=== PATIENT | male | born 1940 | race Caucasian/White ===

== ENCOUNTER 2017-02-13 15:09 | Outpatient (CLI) | payer MEDICARE, OTHER ==
--- NOTE | 2017-02-14 13:40 | Ultrasound Report ---
BILATERAL LOWER EXTREMITY ARTERIAL DUPLEX: 02/13/2017 CLINICAL INDICATION: Peripheral arterial disease. TECHNIQUE: Real-time sonographic vascular imaging was performed by the litigation legal assistant through the lower extremities utilizing both color-flow and Doppler spectral analysis. Multiple senior sales representative static images were saved for review. RIGHT SIDE SITE PSV WAVEFORM STEN PATENT SEARCHER 91 triphasic PSFA 140 triphasic MSFA 112 triphasic DSFA 91 triphasic PFA 85 triphasic POP 90 triphasic RAYMUNDO 82 biphasic GEOGRAPHIC INFORMATION SYSTEM ANALYST 69 biphasic PER 55 biphasic DPA 95 triphasic LEFT SIDE SITE PSV WAVEFORM STEN PATENT SEARCHER 118 triphasic PSFA 103 triphasic MSFA 94 triphasic DSFA 120 triphasic PFA 76 biphasic POP 82 triphasic RAYMUNDO 61 triphasic GEOGRAPHIC INFORMATION SYSTEM ANALYST 78 triphasic PER 62 biphasic DPA 61 triphasic TECHNIQUE: Real-time scanning was performed. FINDINGS: Right leg: Waveforms are predominantly triphasic. There is no evidence of a focal velocity increase to suggest a hemodynamically significant stenosis. Left leg: Waveforms are predominantly triphasic. There is no evidence of a focal velocity increase to suggest a hemodynamically significant stenosis. IMPRESSION: NO EVIDENCE OF A FOCAL HEMODYNAMICALLY SIGNIFICANT STENOSIS IN EITHER LEG. [facility]
== END 2017-02-13 15:10 | disposition home or self-care (01) ==
LOC: DI 15:09
PROVIDERS: ATTEND Family Medicine
DX: I73.9 Peripheral vascular disease, unspecified (principal)
CPT/HCPCS: 93925

== ENCOUNTER 2017-03-19 11:36 | Outpatient (CLI) | payer MEDICARE, OTHER | END 2017-03-19 11:37 | disposition critical access hospital (66) | LOC: EMS 11:36 | PROVIDERS: ATTEND Surgery | DX: R53.1 Weakness (principal); W18.39XA Other fall on same level, initial encounter; Y93.E8 Activity, other personal hygiene; Y92.002 Bathroom of unspecified non-institutional (private) residence as the place of occurrence of the external cause | CPT/HCPCS: A0425; A0429 ==

== ENCOUNTER 2017-03-19 12:02 | Emergency (ER) | payer MEDICARE, OTHER ==
--- NOTE | 2017-03-19 12:11 | ED Physician Documentation ---
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 Today he was in the bathroom being helped and is what by his and he felt a pop in his right ankle and collapsed without other injury.) Review of Systems Ten Systems: 10 systems reviewed and negative Constitutional: denies: Fever, Chills Cardiac: denies: Chest pain / pressure, Palpitations Respiratory: denies: Dyspnea, Cough GI: denies: Abdominal Pain, Nausea, Vomiting PD PAST MEDICAL HISTORY - Past Medical History Cardiovascular: Hypertension, High cholesterol, Coronary artery disease, [place] Respiratory: None Neuro: None Endocrine/Autoimmune: None GI: None : None HEENT: None Musculoskeletal: Chronic back pain Derm: None - Past Surgical History Past Surgical History: Yes Cardiovascular: Coronary stent, Pacemaker - Present Medications Home Medications: Ambulatory Orders Medication Instructions Recorded Confirmed Aspirin [Aspir 81] 81 mg PO DAILY 08/03/15 03/19/17 Gabapentin [Neurontin] 600 mg PO TID 08/03/15 03/19/17 Lisinopril 10 mg PO DAILY 08/03/15 03/19/17 raNITIdine [Zantac] 150 mg PO BID 08/03/15 03/19/17 Carvedilol 25 mg PO BID 08/04/15 03/19/17 Multivit with Calcium,Iron,Min 1 mg PO DAILY 08/04/15 03/19/17 [Maximum Daily Multivitamin] Oxybutynin [Ditropan] 1 mg PO BID 08/04/15 03/19/17 Vit C/Vit E/Lutein/Min/[place]-3 1 mg PO DAILY 08/04/15 03/19/17 [Ocuvite Softgel] Atorvastatin [Lipitor] 40 mg PO DAILY 03/19/17 03/19/17 Cetirizine [ZyrTEC] 10 mg ORAL DAILY 03/19/17 03/19/17 Naproxen Sodium [Aleve] 220 mg ORAL PRN PRN 03/19/17 03/19/17 - Allergies Allergies/Adverse Reactions: Allergies Allergy/AdvReac Type Severity Reaction Status Date / Time No Known Drug Allergies Allergy Verified 08/04/15 21:01 - Social History Does the pt smoke?: No Smoking Status: Never smoker Does the pt drink ETOH?: No Does the pt have substance abuse?: No - Family History Family history: reports: Non contributory - Immunizations Immunizations are current?: No - POLST Patient has POLST: No PD ED PE NORMAL - Vitals Vital signs reviewed: Yes - General General: Alert and oriented X 3, No acute distress - HEENT HEENT: PERRL, EOMI - Neck Neck: Supple, no meningeal sign, No bony TTP - Cardiac Cardiac: RRR, No murmur - Respiratory Respiratory: No respiratory distress, Other (Mild wheezes) - Abdomen Abdomen: Non tender - Derm Derm: Normal color, Warm and dry - Extremities Extremities: No deformity, No tenderness to palpate, Normal ROM s pain, Other ( He is tender to the lateral malleolus of the right ankle, he has pedal edema, right greater than left which he says is chronic and unchanged.) - Neuro Neuro: Alert and oriented X 3, care coordinator 2-12 intact, No motor deficit, No sensory deficit, Normal speech - Psych Psych: Normal mood, Normal affect Results - Vitals Vitals: Vital Signs - 24 hr 03/19/17 03/19/17 03/19/17 12:02 13:03 14:18 Temperature 36.5 C Heart Rate 72 60 66 Respiratory 18 18 18 Rate Blood Pressure 152/134 H 119/61 119/96 H O2 Saturation 93 94 96 Oxygen O2 Source Room air - EKG (time done) 1221 Rate: Rate (enter#) (68) Rhythm: NSR [place]: Normal QRS: Low voltage Ischemia: Non specific changes (flat t waves throughout) Computer interpretation: Agree with computer - Labs Labs: Laboratory Tests 03/19/17 03/19/17 03/19/17 12:22 12:25 12:25 WBC 8.3 RBC 5.26 Hgb 15.3 Hct 46.1 MCV 87.6 MCH 29.1 MCHC 33.2 RDW 15.9 H Plt Count 149 MPV 8.3 Neut # 4.3 Lymph # 3.0 [place] # 0.5 Eos # 0.5 Baso # 0.0 Absolute Nucleated RBC 0.01 Nucleated RBCs 0.1 Sodium 140 Potassium 3.9 Chloride 104 Carbon Dioxide 26 Anion Gap 10.0 BUN 37 H Creatinine 1.1 Estimated GFR (MDRD) 65 L Glucose 106 H Calcium 8.9 Magnesium 2.0 Total Bilirubin 0.8 AST 35 ALT 43 Alkaline Phosphatase 80 Total Creatine Kinase 265 CK-MB (CK-2) 5.6 Troponin I < 0.04 Total Protein 6.6 L Albumin 3.8 Globulin 2.8 Albumin/Globulin Ratio 1.4 Lipase 23 - Rads (name of study) R ankle 3v Radiology: EMP read contemporaneously (Mildly comminuted spiral fracture of the distal tibia and an old healed fracture deformity of the right fibula.) PD MEDICAL DECISION MAKING - ED course ED course: 76-year-old gentleman who has poor functional status to start with presents after collapsing the bathroom with an isolated ankle injury showing an obliquely oriented fracture of the distal tibia. Case was discussed by phone with Dr. Mohamud Morrison who recommended Taz wrap under a cam boot which was applied by the tech. To follow-up in clinic. I will have the social sciences chair see him regarding placement as I am not sure he will be safe at home. Departure - Departure Disposition: 01 Home, Self Care Clinical Impression: Neurogenic bladder Fracture of distal end of tibia Qualifiers: Encounter type: initial encounter Fracture type: closed Fracture morphology: unspecified fracture morphology Laterality: right Qualified Code(s): S82.301A - Unspecified fracture of lower end of right tibia, initial encounter for closed fracture Condition: Stable Record reviewed to determine appropriate education?: Yes Follow-Up: [facility] [Provider Group] - Within 1 week Comments: Nonweightbearing to the right lower extremity, needs to follow-up with orthopedics in 1 week, call for an appointment. Keep the right leg elevated as much as possible.
[2017-03-19 12:39] LABS: BASOPHILS % (AUTO) 0.5 %; EOSINOPHILS # (AUTO) 0.5 10^3/uL (0.0-0.7); EOSINOPHILS % (AUTO) 5.5 %; HCT - HEMATOCRIT 46.1 % (42.0-52.0); HGB - HEMOGLOBIN 15.3 g/dL (14.0-18.0); LYMPHOCYTES % (AUTO) 35.9 %; MEAN CORPUSCULAR HEMOGLOBIN 29.1 pg (27.0-31.0); MEAN CORPUSCULAR HGB CONC 33.2 g/dL (32.0-36.0); MEAN CORPUSCULAR VOLUME 87.6 fL (80.0-94.0); MEAN PLATELET VOLUME 8.3 fL (7.4-11.4); MONOCYTES # (AUTO) 0.5 10^3/uL (0.0-1.0); MONOCYTES % (AUTO) 6.5 %; NEUTROPHILS # (AUTO) 4.3 10^3/uL (1.5-6.6); NEUTROPHILS % (AUTO) 51.6 %; NUCLEATED RED BLOOD CELLS AUTO 0.1 /100WBC; RED BLOOD COUNT 5.26 10^6/uL (4.70-6.10); RED CELL DISTRIBUTION WIDTH 15.9 % (12.0-15.0); UNCORRECTED WHITE BLOOD COUNT 8.3 x10^3/uL; WHITE BLOOD COUNT 8.3 x10^3/uL (4.8-10.8)
[2017-03-19 12:55] LABS: TROPONIN I < 0.04 ng/mL (<0.49)
[2017-03-19 12:57] LABS: CREATINE KINASE MB 5.6 ng/mL (0.6-6.3)
[2017-03-19 13:00] LABS: ALBUMIN/GLOBULIN RATIO 1.4 (1.0-2.2); BILIRUBIN,TOTAL 0.8 mg/dL (0.2-1.0); CALCIUM 8.9 mg/dL (8.5-10.3); CREATININE 1.1 mg/dL (0.6-1.2); POTASSIUM 3.9 mmol/L (3.5-5.0); TOTAL PROTEIN 6.6 g/dL (6.7-8.2)
--- NOTE | 2017-03-19 13:35 | XRAY Preliminary Report ---
Exam: XR Ankle 3 View RT IMPRESSION: 1. Mildly comminuted acute spiral fracture of the distal tibia. 2. Old healed fracture deformity of the distal right fibula. [facility] SITE ID: [id number]
--- NOTE | 2017-03-19 13:38 | XRAY Report ---
EXAM: RIGHT ANKLE RADIOGRAPHY EXAM DATE: 03/19/2017 12:45 PM. CLINICAL HISTORY: Ankle injury. COMPARISON: Radiographs 07/10/2007. TECHNIQUE: 3 views. FINDINGS: There is a mildly comminuted spiral type fracture involving the distal right tibia. There is deformit y within the distal fibula which may represent an old healed fracture. Small posterior and plantar ca lcaneal enthesophyte formation. Diffuse subcutaneous soft tissue edema. IMPRESSION: 1. Mildly comminuted acute spiral fracture of the distal tibia. 2. Old healed fracture deformity of the distal right fibula. [facility] Referring Provider Line: [phone] SITE ID: [id number]
[2017-03-19 15:52] VITALS: BP 142/87
== END 2017-03-19 16:46 | disposition home or self-care (01) ==
LOC: EDUNIT# → ED 12:02 → SUPCPDRO 12:02 → ED 16:46
DX: S82.301A Unspecified fracture of lower end of right tibia, initial encounter for closed fracture (principal); I45.81 Long QT syndrome; G62.9 Polyneuropathy, unspecified; I10 Essential (primary) hypertension; I25.10 Atherosclerotic heart disease of native coronary artery without angina pectoris; I25.2 Old myocardial infarction; Z95.0 Presence of cardiac pacemaker; Z95.5 Presence of coronary angioplasty implant and graft; Z79.82 Long term (current) use of aspirin; W18.30XA Fall on same level, unspecified, initial encounter; Y93.89 Activity, other specified
CPT/HCPCS: 36415; 80053; 82550; 82553; 83690; 83735; 84484; 85025; 93005; 99284

== ENCOUNTER 2017-04-28 13:25 | Outpatient (CLI) | payer MEDICARE, OTHER | END 2017-04-28 13:26 | disposition critical access hospital (66) | LOC: EMS 13:25 | PROVIDERS: ATTEND Surgery | DX: R06.02 Shortness of breath (principal) | CPT/HCPCS: A0425; A0427 ==

== ENCOUNTER 2017-04-28 13:33 | Inpatient (IN) | payer MEDICARE, OTHER ==
[2017-04-28] MEDS ORDERED: IBUPROFEN 800 MG TABLET PO STA (13:41)
[2017-04-28] MEDS ORDERED: IPRATROPIUM/ALBUTEROL 3 ML NEB INH STA (13:41)
[2017-04-28] MEDS ORDERED: SODIUM CHLORIDE 0.9% 1,000 ML IV ONE ×2 (13:41→16:37)
--- NOTE | 2017-04-28 13:43 | ED Physician Documentation ---
History of Present Illness - Stated complaint Stated Complaint: FEVER - Chief complaint Chief Complaint: Fever - History obtained from History obtained from: EMS - Additonal information Additional information: This is a 76-year-old gentleman that [place] with few days of fever up to 103 or so. He is also been noted to be hypoxic. He has an indwelling Hull. Patient is unable to give any history because of altered mental status. Review of Systems Unable to obtain: Confused PD PAST MEDICAL HISTORY - Past Medical History Cardiovascular: Hypertension, High cholesterol, Coronary artery disease, [place] Respiratory: None Neuro: None Endocrine/Autoimmune: None GI: None : None HEENT: None Musculoskeletal: Chronic back pain Derm: None - Past Surgical History Past Surgical History: Yes Cardiovascular: Coronary stent, Pacemaker - Present Medications Home Medications: Ambulatory Orders Medication Instructions Recorded Confirmed Aspirin [Aspir 81] 81 mg PO DAILY 08/03/15 04/28/17 Gabapentin [Neurontin] 600 mg PO TID 08/03/15 04/28/17 Lisinopril 10 mg PO DAILY 08/03/15 04/28/17 raNITIdine [Zantac] 150 mg PO BID 08/03/15 04/28/17 Carvedilol 25 mg PO BID 08/04/15 04/28/17 Multivit with Calcium,Iron,Min 1 tab PO DAILY 08/04/15 04/28/17 [Maximum Daily Multivitamin] Oxybutynin [Ditropan] 5 mg PO BID 08/04/15 04/28/17 Vit C/Vit E/Lutein/Min/[place]-3 1 cap PO DAILY 08/04/15 04/28/17 [Ocuvite Softgel] Atorvastatin [Lipitor] 40 mg PO DAILY 03/19/17 04/28/17 Cetirizine [ZyrTEC] 10 mg ORAL DAILY 03/19/17 04/28/17 Naproxen Sodium [Aleve] 220 mg ORAL PRN PRN 03/19/17 03/19/17 - Allergies Allergies/Adverse Reactions: Allergies Allergy/AdvReac Type Severity Reaction Status Date / Time No Known Drug Allergies Allergy Verified 08/04/15 21:01 - Social History Does the pt smoke?: No Smoking Status: Never smoker Does the pt drink ETOH?: No Does the pt have substance abuse?: No - Immunizations Immunizations are current?: No - POLST Patient has POLST: No PD ED PE NORMAL - Vitals Vital signs reviewed: Yes - General General: Other (He is lethargic, he is able to open his eyes and follow simple commands and say his name. When asking the date he says it is "the 18" but he is unable to state the month of the year. He does not know why he is here.) - HEENT HEENT: PERRL, EOMI, Moist mucous membranes - Neck Neck: Supple, no meningeal sign, No bony TTP - Cardiac Cardiac: RRR, No murmur - Respiratory Respiratory: Other (Tachypneic with audible wheezing and decreased at both bases ) - Abdomen Abdomen: Soft, Non tender, Other (Nontender umbilical hernia) - Male Male : Other (Hull in place with foul looking urine) - Extremities Extremities: No edema, No calf tenderness / cord - Neuro Neuro: No motor deficit, Other (Lethargic, altered) Results - Vitals Vitals: Vital Signs - 24 hr 04/28/17 04/28/17 04/28/17 13:37 13:53 15:25 Temperature 38.4 C H 101.3 C H Heart Rate 93 92 90 Respiratory 32 H 22 22 Rate Blood Pressure 164/121 H 126/112 H O2 Saturation 90 L 92 Oxygen O2 Source Nasal cannula - Labs Labs: Laboratory Tests 04/28/17 04/28/17 04/28/17 14:02 14:02 14:02 WBC 8.2 RBC 4.87 Hgb 14.1 Hct 42.5 MCV 87.3 MCH 28.9 MCHC 33.1 RDW 15.3 H Plt Count 192 MPV 8.5 Neut # 6.9 H Lymph # 0.8 L [place] # 0.1 Eos # 0.3 Baso # 0.0 Absolute Nucleated RBC 0.01 Nucleated RBCs 0.1 PT 13.1 H INR 1.2 Sodium 139 Potassium 4.7 Chloride 100 L Carbon Dioxide 27 Anion Gap 12.0 BUN 28 H Creatinine 1.1 Estimated GFR (MDRD) 65 L Glucose 112 H Lactic Acid Calcium 8.8 Total Bilirubin 1.1 H AST 39 ALT 40 Alkaline Phosphatase 157 H Troponin I Total Protein 6.9 Albumin 3.3 Globulin 3.6 Albumin/Globulin Ratio 0.9 L Lipase 19 L Urine Color Urine Clarity Urine pH Ur Specific [place] Urine Protein Urine Glucose (UA) Urine Ketones Urine Occult Blood Urine Nitrite Urine Bilirubin Urine Urobilinogen Ur Leukocyte Esterase Urine RBC Urine WBC Ur Squamous Epith Cells Amorphous Sediment Urine Bacteria Ur Microscopic Review Urine Culture Comments 04/28/17 04/28/17 04/28/17 14:02 14:02 15:34 WBC RBC Hgb Hct MCV MCH MCHC RDW Plt Count MPV Neut # Lymph # [place] # Eos # Baso # Absolute Nucleated RBC Nucleated RBCs PT INR Sodium Potassium Chloride Carbon Dioxide Anion Gap BUN Creatinine Estimated GFR (MDRD) Glucose Lactic Acid 1.5 Calcium Total Bilirubin AST ALT Alkaline Phosphatase Troponin I < 0.04 Total Protein Albumin Globulin Albumin/Globulin Ratio Lipase Urine Color YELLOW Urine Clarity CLOUDY Urine pH 6.5 Ur Specific [place] 1.015 Urine Protein 30 H Urine Glucose (UA) NEGATIVE Urine Ketones NEGATIVE Urine Occult Blood LARGE H Urine Nitrite POSITIVE H Urine Bilirubin NEGATIVE Urine Urobilinogen 1 (NORMAL) Ur Leukocyte Esterase LARGE H Urine RBC 6-10 H Urine WBC >25 H Ur Squamous Epith Cells FEW Squamous Amorphous Sediment Marked Urine Bacteria Many H Ur Microscopic Review INDICATED Urine Culture Comments INDICATED - Rads (name of study) 1v Chest Radiology: EMP read contemporaneously (NAD, no pna) Ct Chest Angio Radiology: EMP read contemporaneously (B PEs) PD MEDICAL DECISION MAKING - ED course ED course: 76-year-old gentleman presents encephalopathic with fever, foul urine, wheezing , and tachypnea. No obvious pneumonia on chest x-ray. Given recent ankle fracture will send for CT to rule in/out pneumonia and evaluate for pulmonary embolism. His white blood cell count is not high and his lactate is okay. CT does show pulmonary emboli, he was started on cefepime for the UTI and heparin for the PE. I called Dr. Cosby for admission at 3:58 PM. I tried both numbers on the chart to contact family, but there was no answer at either. Departure - Departure Disposition: [facility] DC/Xfer Clinical Impression: Pulmonary embolism Qualifiers: Pulmonary embolism type: other Chronicity: acute Acute cor pulmonale presence: without acute cor pulmonale Qualified Code(s): I26.99 - Other pulmonary embolism without acute cor pulmonale UTI (urinary tract infection) due to urinary indwelling catheter Qualifiers: Indwelling urinary catheter type: indwelling urethral catheter Encounter type: initial encounter Qualified Code(s): T83.511A - Infection and inflammatory reaction due to indwelling urethral catheter, initial encounter Condition: Serious Discharge Date/Time: 04/28/17 17:18
[2017-04-28] MEDS ORDERED: IPRATROPIUM/ALBUTEROL 3 ML NEB INH ONE (13:49)
[2017-04-28 14:11] LABS: BASOPHILS % (AUTO) 0.4 %; EOSINOPHILS # (AUTO) 0.3 10^3/uL (0.0-0.7); EOSINOPHILS % (AUTO) 3.6 %; HCT - HEMATOCRIT 42.5 % (42.0-52.0); HGB - HEMOGLOBIN 14.1 g/dL (14.0-18.0); LYMPHOCYTES # (AUTO) 0.8 10^3/uL (1.5-3.5); LYMPHOCYTES % (AUTO) 9.2 %; MEAN CORPUSCULAR HEMOGLOBIN 28.9 pg (27.0-31.0); MEAN CORPUSCULAR HGB CONC 33.1 g/dL (32.0-36.0); MEAN CORPUSCULAR VOLUME 87.3 fL (80.0-94.0); MEAN PLATELET VOLUME 8.5 fL (7.4-11.4); MONOCYTES # (AUTO) 0.1 10^3/uL (0.0-1.0); MONOCYTES % (AUTO) 1.8 %; NEUTROPHILS # (AUTO) 6.9 10^3/uL (1.5-6.6); NUCLEATED RED BLOOD CELLS AUTO 0.1 /100WBC; RED BLOOD COUNT 4.87 10^6/uL (4.70-6.10); RED CELL DISTRIBUTION WIDTH 15.3 % (12.0-15.0); UNCORRECTED WHITE BLOOD COUNT 8.2 x10^3/uL; WHITE BLOOD COUNT 8.2 x10^3/uL (4.8-10.8)
[2017-04-28 14:20] LABS: ALBUMIN/GLOBULIN RATIO 0.9 (1.0-2.2); BILIRUBIN,TOTAL 1.1 mg/dL (0.2-1.0); CALCIUM 8.8 mg/dL (8.5-10.3); CREATININE 1.1 mg/dL (0.6-1.2); POTASSIUM 4.7 mmol/L (3.5-5.0); TOTAL PROTEIN 6.9 g/dL (6.7-8.2)
[2017-04-28 14:24] LABS: INR 1.2 (0.8-1.2); PT - PROTHROMBIN TIME 13.1 secs (9.9-12.6)
--- NOTE | 2017-04-28 14:28 | XRAY Preliminary Report ---
Exam: XR Chest 1 View IMPRESSION: No acute disease. [facility] SITE ID: [id number]
--- NOTE | 2017-04-28 14:31 | XRAY Report ---
EXAM: CHEST RADIOGRAPHY EXAM DATE: 04/28/2017 02:13 PM. CLINICAL HISTORY: Cough fever. COMPARISON: 06/06/2011. TECHNIQUE: 1 view. FINDINGS: Lungs/Pleura: No definite localized infiltrate, consolidation, effusion, or pneumothorax. Mediastinum: Normal heart size, unchanged. Upper lobe vessels not distended. Other: Permanent pacemaker on the left with intact leads. Old lead on the right. Degenerative changes . IMPRESSION: No acute disease. [facility] Referring Provider Line: [phone] SITE ID: [id number]
[2017-04-28] MEDS ORDERED: IBUPROFEN 800 MG TABLET PO ONE (14:32)
[2017-04-28 15:42] LABS: BILIRUBIN,URINE NEGATIVE (NEGATIVE); PH,URINE 6.5 PH (5.0-7.5)
[2017-04-28 15:43] LABS: UA w/ MICROSCOPIC CHARGE YES
[2017-04-28 15:53] LABS: UR CULTURE IF IND INDICATED; WBC,URINE >25 /HPF (0-3)
[2017-04-28] MEDS ORDERED: HEPARIN 25,000 UNITS/500 ML 500 ML IV STA (15:56)
[2017-04-28] MEDS ORDERED: HEPARIN 5,000 UNIT/ML VIAL IVP ONE (15:56)
[2017-04-28] MEDS ORDERED: SODIUM CHLORIDE FLUSH 0.9% 10 ML SYRINGE IVP PRN (15:59)
[2017-04-28] MEDS ORDERED: oxyCODONE 5 MG TABLET PO PRN (16:04)
[2017-04-28] MEDS ORDERED: MORPHINE 2 MG/ML CARPUJECT IVP PRN (16:04)
[2017-04-28] MEDS ORDERED: PROCHLORPERAZINE 10 MG/2 ML VIAL IVP PRN (16:04)
[2017-04-28] MEDS ORDERED: ONDANSETRON ODT 4 MG TABLET TL PRN (16:04)
[2017-04-28] MEDS ORDERED: ONDANSETRON 4 MG/2 ML VIAL IVP PRN (16:04)
[2017-04-28] MEDS ORDERED: HEPARIN 5,000 UNIT/ML VIAL ONE (16:10)
[2017-04-28] MEDS ORDERED: HEPARIN 25,000 UNITS/500 ML 500 ML IV ONE (16:10)
--- NOTE | 2017-04-28 16:32 | CT Report ---
EXAM: CT ANGIOGRAM CHEST EXAM DATE: 04/28/2017 03:57 PM. CLINICAL HISTORY: Recent ankle frx, dyspnea. COMPARISON: None. TECHNIQUE: Routine helical imaging was performed through the chest in the pulmonary arterial phase. I V Contrast: 100 cc [id number]. Reconstructions: Sagittal, coronal, and 3-D MIP. In accordance with CT protocol optimization, one or more of the following dose reduction techniques w ere utilized for this exam: automated exposure control, adjustment of mA and/or KV based on patient s ize, or use of iterative reconstructive technique. FINDINGS: Pulmonary Arteries: Diagnostic quality: Adequate through the segmental arteries. Prominent pulmonary emboli, right more t fisher left, including lobar involvement and clot extending into the distal right main pulmonary artery. No saddle embolus. Dilation of main pulmonary artery measuring 3.8 cm indicating pulmonary artery hy pertension. RV/LV is within normal limits. There is no interventricular septal bowing. There is no reflux of cont rast material in the IVC. Lungs/Pleura: Respiratory motion artifact. Mild bibasilar atelectasis. No consolidation, effusion, or pneumothorax. Minimal pleural thickening on the right. Mediastinum: Normal heart size. No pericardial effusion. At least one vessel coronary artery calcific ation. No lymphadenopathy. Small hiatal hernia. Thoracic Aorta: Unremarkable. Upper Abdomen: Unremarkable. Other: None. IMPRESSION: 1. Positive for pulmonary embolism, right more than left, with a moderate to large total amount of cl ot. 2. Pulmonary artery hypertension. 3. Small hiatal hernia and other chronic or incidental findings. [facility] The above critical findings were discussed with LULU Leo by Dr. Néstor Rogers at 16:28 hrs on 04/28. Referring Provider Line: [phone] SITE ID: [id number]
[2017-04-28] MEDS: SODIUM CHLORIDE 0.9% 1,000 ML IV SCH (19:16)
[2017-04-28] MEDS: HEPARIN 25,000 UNITS/500 ML 500 ML IV SCH (20:00)
--- NOTE | 2017-04-28 20:55 | HISTORY & PHYSICAL EXAMINATION ---
DATE OF ADMISSION: 04/28/2017 PRIMARY CARE PROVIDER: Vanessa Krishnamurthy DO. ADMITTING PROVIDER: Angélica Cosby MD. CHIEF COMPLAINT: Fever, low oxygen and altered mental status, worsening over the last 2 days. HISTORY OF PRESENT ILLNESS: The patient is a morbidly obese 76-year-old white male who has been [facility] since approximately mid March of this year because of a right ankle fracture. 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 He lives at home with his and even though his is an [employer], he has become more and more difficult to care for because of his size. He already has an old right ankle fracture, and then he sprained his ankle p retty badly in August 2010. Because of his failed laminectomy syndrome, he has bilateral lower extr emity weakness. Legs will go out from underneath him. This gentleman still drives. He states that he will get in the car, use his foot to put the gas on, get it up to 30, 35 and set cruise control. He t hen takes his foot off the gas pedal and using the cruise control will up the switch or down the swit ch depending on if he needs to speed up or slow down. He then uses his very weak right leg to then pu t on the brakes. In any case, he was standing after a bout of rectal incontinence. His was helping him get cleane d up and as he was standing there next to the toilet and the wheelchair, his right leg collapsed unde rneath him and he heard a snap. He broke his ankle. He has been living at [facility] with self [facility] he cannot be at home with his . He has had followup films with Dr. Dwight Morrison and the fractur e is described as healing, but the patient has been nonweightbearing and states that he has been gett ing weaker and weaker at [facility]. He usually walks with a walker at home a few steps, or uses a wheel chair. Right now he doubts he could stand to use a wheelchair. He uses self-catheterization for urinary retention. He has a history of traumatic hematuria in 2010. He ended up having a cystoscopy with clots removed. He then went on to have a penile implant, but the penile implant moved and he developed scrotal fluid and he had to have all that removed in June 02. About 2 days ago, he started developing fevers. He does not really remember the confusion. He is act ually a decent historian. Dr. Gonzalez seems to be describing a confused gentleman in the emergency neil m that is much improved after receiving Levaquin and IV fluids. In any case, he was confused, hypoxic , febrile, tachycardic. Dr. Gonzalez was going to be suspecting pneumonia or urinary tract infection be cause his urine was sludge in the emergency room. While he does have a UTI, the CT pulmonary angiogra m shows the patient to have bilateral pulmonary emboli. He has now been started on a heparin drip. He received IV fluids, IV antibiotics, and mentally his sensorium is much improved upon transfer to med /surg floor. PAST MEDICAL HISTORY: 1. Coronary artery disease, myocardial infarction in August 2008. He had an anterior wall CT and cochran d 2 drug-eluting stent placements. These were done to the diagonal and circumflex. He has had an echo prior to that in 2005 that showed an intact left ventricular ejection fraction. Repeat echo after hi s CT in October 2009 shows an intact left ventricle with an ejection fraction of 60% but he has mode rate tricuspid regurgitation and developing pulmonary hypertension. 2. Hypertension. 3. Hyperlipidemia. 4. Morbid obesity all of his life. 5. Back pain from spinal stenosis. He had a lumbar laminectomy, complicated by postoperative infectio n with staph at [facility] in 2002. He was septic. He lost function in both legs, predominantly more on the right than the left. Gradually regained function to be able to use a walker and a wheelchair. Over after several years leg weakness got much worse. He had a right knee replacement in 2011 in an e ffort to improve his strength, but it did not work. He has [facility] and [facility] Then he finally had an L3-4 laminectomy and redo L1-L2 and L3-S1 with foraminotomies 05/[address] Salinas at [facility]. He spent some time at [facility] for reha bilitation. 6. Osteoarthritis with a right total knee replacement as noted above. Spent time at [facility] for rehabilitation. He should have a left knee replacement, but he just has not been able to. 7. Deaf. [facility]. 8. Gastroesophageal reflux disease. 9. Intermittent rectal bleeding. He has a history of tubular adenomas and had a followup colonoscopy 10/2011. That showed an inflamed cecum with diverticulosis. He has had bloody stool off and on. Last episode of bloody stool with diarrhea was 10/2012. 10. Tonsillectomy. 11. Vocal cord paralysis noted with the ENT visit in 2012. 12. Sick sinus syndrome with pacemaker placement. 13. Left lower lung consolidation. He presented to [facility] ER in 11/2014 with dizziness, jono ting spells and just generalized not feeling well with tingling. They sent him home with a diagnosis of vertigo, but did not address the left lower lung consolidation from what I can see from that repor t. 14. Cataract surgery 10/2013. 15. Chronic allergies and he has had otitis media. Followed by the same ENT who diagnosed with vocal cord paralysis in 2011. 16. Chronic left olecranon bursitis and he has seen Orthopedics in the past and had elbow injection. 17. Metabolic syndrome with oral glucose tolerance test negative for diabetes in June 2010. 18. Onychomycosis. 19. Carries a diagnosis of peripheral artery disease but no real documentation in the chart other loretta n as stated diagnosis. 20. History of right leg edema that is intermittent because of his paralysis. He has had venous Doppl ers negative. ALLERGIES: HE HAS NO KNOWN DRUG ALLERGIES. MEDICATIONS: 1. Naproxen 220 mg b.i.d. p.r.n.. 2. Aspirin 81 mg p.o. daily. 3. Carvedilol 25 mg p.o. b.i.d. 4. Ditropan 5 mg p.o. daily. 5. Lipitor 40 mg p.o. daily. 6. Lisinopril 10 mg p.o. daily. 7. Calcium with Iron tablet daily. 8. Gabapentin 600 mg p.o. t.i.d.. 9. Vitamin C daily. 10. Zantac 150 b.i.d.. 11. Zyrtec 10 mg daily. SOCIAL HISTORY: He is from [place]. 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 From there, joined the [employer] after being in the [employer] for 12 year s. 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 He is 40% service connected because of his work with the [employer], because of hea rt and deafness. He is from his first , to his second . He has 1 son from id [place]. He is supposed to be living in his own home with his . Lanny hamilton has gotten increasingly difficult and she is unable to take care of him. He does not seem to have any future plans with regards to how he is going to take care of himself if his can no longer ta ke care of him and he needs to be permanently placed. FAMILY HISTORY: Dad at age 50 of [address]. Mom at age 50 of leukemia, and she had no white hiwot ls. He has one son who is healthy. No siblings. REVIEW OF SYSTEMS: He is remarkably negative. In spite of this extensive past medical history as I go from top to bottom he says he has no problems. But in looking at his past medical record with Vanessa Krishnamurthy he has multiple problems. Overall, constitutionally he has been super obese for many, many ye ars and has not had any unexpected weight changes. ENT: He has chronic vocal cord paralysis and speaks with forced harsh voice. He denies any recent jovanna nges in vision. [facility]. Denies any dental problems. Denies any swallowing problems. PULMONARY: He is wheezing while I talk to him and I ask him how often he has been coughing or wheezin g and he denies that, but he does have a couple of episodes of bronchitis documented in Dr. Krishnamurthy's notes. He seems to deny the allergy problems and asthma problems that might be associated with aller gies. He is a nonsmoker. He has had one episode of hemoptysis in the past, but is not chronic. CARDIAC: He has had no residual angina or congestive heart failure from his heart attack. He has inte rmittent leg edema on the right more than the left that is attributed to the paralysis and leg weakne ss. No DVTs, and does have orthopnea. [place] to have probable obstructive sleep apnea with significant snoring that he has never had evaluated. GASTROINTESTINAL: Has reflux disease. Intermittent rectal bleeding as noted above. No change in that. GENITOURINARY: He has chronic urinary retention. Cystoscopy in the past that showed an elevated base of the bladder, but no benign prostatic hypertrophy. Penile implant has been removed. No hematuria re cently. JOINTS: Everything hurts from the waist down. Not only does his back and joints hurt, but everything ybarra. Legs particularly. He says it is a residual from his surgeries. Again, he surprises me by tell ing me that he still drives and the history of present illness is a description of how he drives. SKIN: Denies rashes, petechiae, bruising. PSYCHIATRIC: Denies depression. Anxiety. Remarkably he does not worry about the future he tells me. 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 He has had syncope resulting in sick sinus syndrome with pacer placement. Denie s seizures. 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 Rectal incontinence and urinary retention. PHYSICAL EXAMINATION: VITAL SIGNS: On examination in the emergency room, he was 38.4 with a blood pressure 164/121, respira tory effort 32, 90% on room air. With fluids, antibiotics, heparin he has been transferred to the [facility] or. His blood pressure got as low as 73 and right now he is systolic 102, pulse 87, respiration 18, 9 1% on 5 liters. During my examination of this patient he was alert, oriented, eating a full dinner. A ll 3 courses on his plate plus the cheese cake and the only thing he did not eat was the grapes. HEAD AND NECK show unshaven man with pupils that are reactive. Moist, pink oral mucosa. A harsh force d voice because of his vocal cord paralysis. He speaks in a low growl. NECK: Has shotty adenopathy and he is so big that it is hard to assess for JVD. Supple, with no goite r or bruits. LUNGS: Have coarse tubular breath sounds and he is wheezing. He is unaware of his wheezing. No crackl es. CARDIAC: Regular rate and rhythm. Distant cardiac tones. I cannot feel His PMI. No murmurs, rubs, or gallops. ABDOMEN: Hugely obese. When asked about of appetite he grabbed the pannus and shakes it and laughs an d says that appetite is not a problem for him. He has an easily reducible umbilical hernia. Nontender . Normal bowel sounds. Lifting upwards pannus he has residual Geetha intertrigo. Both scrotum were s lightly retracted, no penile irritation at this time. EXTREMITIES: Huge. Large legs that are splayed and externally rotated. The right ankle almost has a C harcot joint appearance. There is no warmth, no heat. Left leg has no edema at all in comparison to t he right leg. Mild diffuse swelling that is pitting from knee down. He cannot lift his legs off the b ed, they are too big. He said he has lost a lot of strength being bedbound and nonweightbearing. No c lubbing, no cyanosis. NEUROLOGICAL: He has a functional plegia from both legs, right worse than left. He can barely wiggle his toes. Use of arms is intact. He is able to cut up his food, feed himself without difficulty. Alth ough he has got the vocal cord paralysis, there is no choking, no problems swallowing. No facial asym metry. Alert and oriented to person, place and time. ASSESSMENT/PLAN: 1. Acute respiratory failure with hypoxia. A combination of PE and sepsis. I also think we need to th row obstructive sleep apnea on top of it. Would probably benefit from a blood gas to see how much hyp ercapnia he has. Improving on the floor with just the minimal treatment has already received but he i s a tenuous status at best and may need to be transferred to the ICU, depending on how he does in the next few hours. 2. Pulmonary emboli. Started on heparin drip. Transition to Coumadin. I have explained to him that he is going to be given anticoagulation for the next 3-4 months. I would be tempted to start him on Xar elto, but I think insurance is going to be difficult for him, and he is a [facility]. 3. Urinary tract infection in a patient who has neurogenic bladder. Dr. Gonzalez describes the urine is sludge. Culture pending. Started on Levaquin IV. We will need to watch the interaction between Levaq uin and Coumadin to make sure he does not hypocoagulable. 4. Right ankle fracture. Recheck film. Check with Dr. Morrison about nonweightbearing status. 5. Super obesity with physiologic consequences of immobility. This gentleman is at real risk of losin g ground. He was relatively independent although shockingly so with regards to driving skills, but he has lost a lot of grounds while being at [facility] over the last few weeks. Depending on the ankle fra cture status, I will ask Dr. Morrison to see if he can start weightbearing and be more aggressive with his physical therapy. DO NOT RESUSCITATE STATUS. He has a POLST form with Dr. Krishnamurthy that is DO NOT RESUSCITATE from 05/21 15. He states that is unchanged. Deep venous thrombosis prophylaxis moot in that he has had pulmonary embolus, most likely has DVTs an d is on anticoagulation. JOB #: [id number] EXT JOB #:[id number]
[2017-04-28] MEDS: SODIUM CHLORIDE FLUSH 0.9% 10 ML SYRINGE IVP SCH (21:38)
[2017-04-28] MEDS ORDERED: SODIUM CHLORIDE 0.9% 500 ML IV ONE (22:12)
[2017-04-29] MEDS: SODIUM CHLORIDE 0.9% 1,000 ML IV SCH ×3 (03:33→23:38)
[2017-04-29] MEDS: SODIUM CHLORIDE FLUSH 0.9% 10 ML SYRINGE IVP SCH ×3 (06:22→21:45)
[2017-04-29] MEDS: HEPARIN 25,000 UNITS/500 ML 500 ML IV SCH ×2 (06:44→18:02)
[2017-04-29 08:40] LABS: INR 1.3 (0.8-1.2); PT - PROTHROMBIN TIME 14.8 secs (9.9-12.6)
[2017-04-29] MEDS: POLYETHYLENE GLYCOL 3350 17 GM PACKET PO SCH (08:59)
[2017-04-29] MEDS ORDERED: ACETAMINOPHEN 325 MG TABLET PO PRN (16:42)
--- NOTE | 2017-04-29 16:48 | PROVIDER PROGRESS NOTE ---
Assessment/Plan - Problem List (1) Pulmonary embolism Qualifiers: Pulmonary embolism type: other Chronicity: acute Acute cor pulmonale presence: without acute cor pulmonale Qualified Code(s): I26.99 - Other pulmonary embolism without acute cor pulmonale Assessment/Plan: His O2 has improved from 4liters to room air. Will continue heparin bridge to coumadin (2) Sepsis Assessment/Plan: Blood cultures have strep positive sens pending. His urine is pending. He is on Levaquin. SBP has improved. Will continue to monitor and change antibiotic if needed. - Current Meds Current Meds: Current Medications Generic Name Dose Route Start Last Admin Trade Name Freq PRN Reason Stop Dose Admin Sodium Chloride 1,000 mls @ 100 mls/hr 04/28/17 17:00 04/29/17 03:33 Normal Saline 0.9% IV 100 mls/hr .Q10H BILLIE Administration Heparin Sodium/Dextrose 500 mls @ 40.823 mls/hr 04/28/17 17:00 04/29/17 06:44 IV 38.22 mls/hr .[id number] BILLIE Administration Protocol 15 UNIT/KG/HR Levofloxacin 150 mls @ 100 mls/hr 04/28/17 17:00 04/28/17 19:16 Levaquin 750 Mg/150 Ml IV 100 mls/hr Q24H BILLIE Administration Polyethylene Glycol 17 gm 04/29/17 09:00 04/29/17 08:59 Miralax PO Not Given DAILY BILLIE Sodium Chloride 10 ml 04/28/17 22:00 04/29/17 06:22 Normal Saline Flush 0.9% IVP Not Given Q8HR BILLIE - Lab Result Fish Bone Diagrams: 04/28/17 14:02 04/28/17 14:02 - Additional Planning My Orders: My Active Orders 04/29/17 16:42 Acetaminophen [Tylenol] 650 mg PO Q4HR PRN 04/29/17 17:00 Gabapentin [Neurontin] 600 mg PO TID 04/29/17 21:00 Atorvastatin [Lipitor] 40 mg PO QPM Oxybutynin [Ditropan] 5 mg PO BID raNITIdine [Zantac] 150 mg PO BID 04/30/17 05:00 CBC - COMP BLD CT W/AUTO DIFF [HEME] DAILYLAB COMPREHENSIVE METABOLIC PANEL [CHEM] DAILYLAB Guiaic [OCCULT BLOOD IN PAT. SINGLE] [RAPID] DAILYLAB 04/30/17 06:00 Anti Xa [FACTOR XA] [COAG] Routine 05/01/17 05:00 CBC - COMP BLD CT W/AUTO DIFF [HEME] DAILYLAB COMPREHENSIVE METABOLIC PANEL [CHEM] DAILYLAB 05/02/17 05:00 CBC - COMP BLD CT W/AUTO DIFF [HEME] DAILYLAB COMPREHENSIVE METABOLIC PANEL [CHEM] DAILYLAB Subjective - Subjective Patient Reports: Feeling Better, Resting Comfortably, Fatigue (no sleep last night) Objective Vital Signs: Vital Signs - 24 hr 04/28/17 04/28/17 04/28/17 17:26 21:28 22:07 Temperature 37 C 36.7 C Heart Rate [ 87 83 Brachial] Heart Rate [ Supine] Respiratory 18 28 H Rate Blood Pressure 102/40 L [Left Brachial artery] Blood Pressure 76/51 L 86/47 L [Left Radial artery] Blood Pressure [Supine] O2 Saturation 91 L 95 04/29/17 04/29/17 04/29/17 04:00 08:05 11:35 Temperature 36.9 C 36.6 C Heart Rate [ 85 68 Brachial] Heart Rate [ 67 Supine] Respiratory 20 18 Rate Blood Pressure [Left Brachial artery] Blood Pressure 96/53 L 97/50 L [Left Radial artery] Blood Pressure 146/96 H [Supine] O2 Saturation 95 96 04/29/17 15:35 Temperature 36.7 C Heart Rate [ 73 Brachial] Heart Rate [ Supine] Respiratory 20 Rate Blood Pressure [Left Brachial artery] Blood Pressure 135/67 H [Left Radial artery] Blood Pressure [Supine] O2 Saturation 93 Oxygen O2 Source Room air I&O (Last 24 Hrs): Intake and Output Totals x24h 04/27/17 04/28/17 04/29/17 23:59 23:59 23:59 Intake Total 1188 1050 Output Total 1375 3600 Balance -187 -2550 General: Alert, Oriented x3, Cooperative HEENT: PERRLA, EOMI Neck: No JVD, No thyromegaly Neuro: Alert, Oriented Times 3 Cardiovascular: Regular rate, No murmurs Respiratory: No respiratory distress, Breath sounds nml Abdomen: Normal bowel sounds, Soft, No tenderness - Results Results: Laboratory Results WBC 8.2 x10^3/uL (4.8-10.8) 04/28/17 14:02 RBC 4.87 10^6/uL (4.70-6.10) 04/28/17 14:02 Hgb 14.1 g/dL (14.0-18.0) 04/28/17 14:02 Hct 42.5 % (42.0-52.0) 04/28/17 14:02 MCV 87.3 fL (80.0-94.0) 04/28/17 14:02 MCH 28.9 pg (27.0-31.0) 04/28/17 14:02 MCHC 33.1 g/dL (32.0-36.0) 04/28/17 14:02 RDW 15.3 % (12.0-15.0) H 04/28/17 14:02 Plt Count 192 10^3/uL (130-450) 04/28/17 14:02 MPV 8.5 fL (7.4-11.4) 04/28/17 14:02 Neut # 6.9 10^3/uL (1.5-6.6) H 04/28/17 14:02 Lymph # 0.8 10^3/uL (1.5-3.5) L 04/28/17 14:02 Rankin # 0.1 10^3/uL (0.0-1.0) 04/28/17 14:02 Eos # 0.3 10^3/uL (0.0-0.7) 04/28/17 14:02 Baso # 0.0 10^3/uL (0.0-0.1) 04/28/17 14:02 Absolute Nucleated RBC 0.01 x10^3/uL 04/28/17 14:02 Nucleated RBCs 0.1 /100WBC 04/28/17 14:02 PT 14.8 secs (9.9-12.6) H 04/29/17 08:00 INR 1.3 (0.8-1.2) H 04/29/17 08:00 Anti-Xa Level 0.6 U/mL (-0.7) 04/29/17 08:00 Sodium 139 mmol/L (135-145) 04/28/17 14:02 Potassium 4.7 mmol/L (3.5-5.0) 04/28/17 14:02 Chloride 100 mmol/L (101-111) L 04/28/17 14:02 Carbon Dioxide 27 mmol/L (21-32) 04/28/17 14:02 Anion Gap 12.0 (6-13) 04/28/17 14:02 BUN 28 mg/dL (6-20) H 04/28/17 14:02 Creatinine 1.1 mg/dL (0.6-1.2) 04/28/17 14:02 Estimated GFR (MDRD) 65 (>89) L 04/28/17 14:02 Glucose 112 mg/dL (70-100) H 04/28/17 14:02 Lactic Acid 1.5 mmol/L (0.5-2.2) 04/28/17 14:02 Calcium 8.8 mg/dL (8.5-10.3) 04/28/17 14:02 Total Bilirubin 1.1 mg/dL (0.2-1.0) H 04/28/17 14:02 AST 39 IU/L (10-42) 04/28/17 14:02 ALT 40 IU/L (10-60) 04/28/17 14:02 Alkaline Phosphatase 157 IU/L (42-121) H 04/28/17 14:02 Troponin I < 0.04 ng/mL (<0.49) 04/28/17 14:02 Total Protein 6.9 g/dL (6.7-8.2) 04/28/17 14:02 Albumin 3.3 g/dL (3.2-5.5) 04/28/17 14:02 Globulin 3.6 g/dL (2.1-4.2) 04/28/17 14:02 Albumin/Globulin Ratio 0.9 (1.0-2.2) L 04/28/17 14:02 Lipase 19 U/L (22-51) L 04/28/17 14:02 Urine Color YELLOW 04/28/17 15:34 Urine Clarity CLOUDY (CLEAR) 04/28/17 15:34 Urine pH 6.5 PH (5.0-7.5) 04/28/17 15:34 Ur Specific Hood 1.015 (1.002-1.030) 04/28/17 15:34 Urine Protein 30 mg/dL (NEGATIVE) H 04/28/17 15:34 Urine Glucose (UA) NEGATIVE mg/dL (NEGATIVE) 04/28/17 15:34 Urine Ketones NEGATIVE mg/dL (NEGATIVE) 04/28/17 15:34 Urine Occult Blood LARGE (NEGATIVE) H 04/28/17 15:34 Urine Nitrite POSITIVE (NEGATIVE) H 04/28/17 15:34 Urine Bilirubin NEGATIVE (NEGATIVE) 04/28/17 15:34 Urine Urobilinogen 1 (NORMAL) E.U./dL (NORMAL) 04/28/17 15:34 Ur Leukocyte Esterase LARGE (NEGATIVE) H 04/28/17 15:34 Urine RBC 6-10 /HPF (0-5) H 04/28/17 15:34 Urine WBC >25 /HPF (0-3) H 04/28/17 15:34 Ur Squamous Epith Cells FEW Squamous (<= Few) 04/28/17 15:34 Amorphous Sediment Marked /LPF 04/28/17 15:34 Urine Bacteria Many /HPF (None Seen) H 04/28/17 15:34 Ur Microscopic Review INDICATED 04/28/17 15:34 Urine Culture Comments INDICATED 04/28/17 15:34
[2017-04-29] MEDS ORDERED: LORazepam 0.5 MG TABLET PO PRN (16:52)
[2017-04-29] MEDS: GABAPENTIN 300 MG CAPSULE PO SCH ×2 (18:04→21:45)
[2017-04-29] MEDS: ATORVASTATIN 40 MG TABLET PO SCH (20:29)
[2017-04-29] MEDS: OXYBUTYNIN 5MG TABLET PO SCH (20:29)
[2017-04-30] MEDS: HEPARIN 25,000 UNITS/500 ML 500 ML IV SCH ×2 (06:09→19:03)
[2017-04-30] MEDS: GABAPENTIN 300 MG CAPSULE PO SCH ×3 (06:11→20:25)
[2017-04-30] MEDS: SODIUM CHLORIDE FLUSH 0.9% 10 ML SYRINGE IVP SCH ×3 (06:12→20:26)
[2017-04-30 06:38] LABS: BASOPHILS # (AUTO) 0.1 10^3/uL (0.0-0.1); EOSINOPHILS # (AUTO) 0.5 10^3/uL (0.0-0.7); EOSINOPHILS % (AUTO) 5.4 %; HCT - HEMATOCRIT 36.6 % (42.0-52.0); LYMPHOCYTES # (AUTO) 2.9 10^3/uL (1.5-3.5); LYMPHOCYTES % (AUTO) 32.9 %; MEAN CORPUSCULAR HGB CONC 32.8 g/dL (32.0-36.0); MEAN CORPUSCULAR VOLUME 88.5 fL (80.0-94.0); MEAN PLATELET VOLUME 8.4 fL (7.4-11.4); MONOCYTES # (AUTO) 0.9 10^3/uL (0.0-1.0); MONOCYTES % (AUTO) 10.2 %; NEUTROPHILS # (AUTO) 4.5 10^3/uL (1.5-6.6); NEUTROPHILS % (AUTO) 50.5 %; RED BLOOD COUNT 4.14 10^6/uL (4.70-6.10); RED CELL DISTRIBUTION WIDTH 15.5 % (12.0-15.0); UNCORRECTED WHITE BLOOD COUNT 8.8 x10^3/uL; WHITE BLOOD COUNT 8.8 x10^3/uL (4.8-10.8)
[2017-04-30 06:47] LABS: ALBUMIN/GLOBULIN RATIO 0.8 (1.0-2.2); BILIRUBIN,TOTAL 0.5 mg/dL (0.2-1.0); CALCIUM 8.2 mg/dL (8.5-10.3); CREATININE 0.8 mg/dL (0.6-1.2); POTASSIUM 3.9 mmol/L (3.5-5.0); TOTAL PROTEIN 5.9 g/dL (6.7-8.2)
[2017-04-30] MEDS: SODIUM CHLORIDE 0.9% 1,000 ML IV SCH ×2 (09:57→21:45)
[2017-04-30] MEDS: OXYBUTYNIN 5MG TABLET PO SCH ×2 (09:57→20:25)
[2017-04-30] MEDS: POLYETHYLENE GLYCOL 3350 17 GM PACKET PO SCH (09:57)
[2017-04-30] MEDS ORDERED: MORPHINE 2 MG/ML SYRINGE IVP PRN (10:33)
--- NOTE | 2017-04-30 12:35 | PROVIDER PROGRESS NOTE ---
Assessment/Plan - Problem List (1) Pulmonary embolism Qualifiers: Pulmonary embolism type: other Chronicity: acute Acute cor pulmonale presence: without acute cor pulmonale Qualified Code(s): I26.99 - Other pulmonary embolism without acute cor pulmonale Assessment/Plan: He is on room air and doing well. He continues on Heparin drip. started Warfarin. (2) Sepsis Assessment/Plan: He is afebrile SBP OK. UTI not identified bacteria yet. - Current Meds Current Meds: Current Medications Generic Name Dose Route Start Last Admin Trade Name Freq PRN Reason Stop Dose Admin Atorvastatin Calcium 40 mg 04/29/17 21:00 04/29/17 20:29 Lipitor PO 40 mg QPM BILLIE Administration Gabapentin 600 mg 04/29/17 17:00 04/30/17 06:11 Neurontin PO 600 mg TID BILLIE Administration Sodium Chloride 1,000 mls @ 100 mls/hr 04/28/17 17:00 04/30/17 09:57 Normal Saline 0.9% IV 100 mls/hr .Q10H BILLIE Administration Heparin Sodium/Dextrose 500 mls @ 40.823 mls/hr 04/28/17 17:00 04/30/17 06:09 IV 38.22 mls/hr .[id number] BILLIE Administration Protocol 15 UNIT/KG/HR Levofloxacin 150 mls @ 100 mls/hr 04/28/17 17:00 04/29/17 18:04 Levaquin 750 Mg/150 Ml IV 100 mls/hr Q24H BILLIE Administration Oxybutynin Chloride 5 mg 04/29/17 21:00 04/30/17 09:57 Ditropan PO 5 mg BID BILLIE Administration Polyethylene Glycol 17 gm 04/29/17 09:00 04/30/17 09:57 Miralax PO Not Given DAILY BILLIE Ranitidine HCl 150 mg 04/29/17 21:00 04/30/17 09:57 Zantac PO 150 mg BID BILLIE Administration Sodium Chloride 10 ml 04/28/17 22:00 04/30/17 06:12 Normal Saline Flush 0.9% IVP Not Given Q8HR BILLIE - Lab Result Fish Bone Diagrams: 04/30/17 06:17 04/30/17 06:17 - Additional Planning My Orders: My Active Orders 04/29/17 16:42 Acetaminophen [Tylenol] 650 mg PO Q4HR PRN 04/29/17 16:52 LORazepam [Ativan] 0.5 mg PO QPM PRN 04/29/17 17:00 Gabapentin [Neurontin] 600 mg PO TID 04/29/17 21:00 Atorvastatin [Lipitor] 40 mg PO QPM Oxybutynin [Ditropan] 5 mg PO BID raNITIdine [Zantac] 150 mg PO BID 04/30/17 14:00 Warfarin [Coumadin] 5 mg PO QDWARFARIN 05/01/17 05:00 CBC - COMP BLD CT W/AUTO DIFF [HEME] DAILYLAB COMPREHENSIVE METABOLIC PANEL [CHEM] DAILYLAB 05/02/17 05:00 CBC - COMP BLD CT W/AUTO DIFF [HEME] DAILYLAB COMPREHENSIVE METABOLIC PANEL [CHEM] DAILYLAB Subjective - Subjective Patient Reports: Feeling Better, Resting Comfortably, No Complaints Nursing Reports: No Complaints Objective Vital Signs: Vital Signs - 24 hr 04/29/17 04/30/17 04/30/17 15:35 00:07 08:40 Temperature 36.7 C 37.3 C 36.5 C Heart Rate [ 73 66 69 Brachial] Respiratory 20 18 18 Rate Blood Pressure 141/80 H [Left Brachial artery] Blood Pressure 135/67 H 137/83 H [Left Radial artery] O2 Saturation 93 94 94 Oxygen O2 Source Room air I&O (Last 24 Hrs): Intake and Output Totals x24h 04/28/17 04/29/17 04/30/17 23:59 23:59 23:59 Intake Total 1188 4213 1585 Output Total 1375 4575 2425 Balance -187 362 -840 General: Alert, Oriented x3, Cooperative HEENT: PERRLA, EOMI Neck: No JVD, No thyromegaly Neuro: Alert, Oriented Times 3 Cardiovascular: Regular rate, No murmurs Respiratory: Chest non-tender, No respiratory distress, Breath sounds nml Abdomen: Normal bowel sounds, Soft, No tenderness Skin: No rashes, No significant lesion - Results Results: Laboratory Results WBC 8.8 x10^3/uL (4.8-10.8) 04/30/17 06:17 RBC 4.14 10^6/uL (4.70-6.10) L 04/30/17 06:17 Hgb 12.0 g/dL (14.0-18.0) L 04/30/17 06:17 Hct 36.6 % (42.0-52.0) L 04/30/17 06:17 MCV 88.5 fL (80.0-94.0) 04/30/17 06:17 MCH 29.0 pg (27.0-31.0) 04/30/17 06:17 MCHC 32.8 g/dL (32.0-36.0) 04/30/17 06:17 RDW 15.5 % (12.0-15.0) H 04/30/17 06:17 Plt Count 184 10^3/uL (130-450) 04/30/17 06:17 MPV 8.4 fL (7.4-11.4) 04/30/17 06:17 Neut # 4.5 10^3/uL (1.5-6.6) 04/30/17 06:17 Lymph # 2.9 10^3/uL (1.5-3.5) 04/30/17 06:17 [place] # 0.9 10^3/uL (0.0-1.0) 04/30/17 06:17 Eos # 0.5 10^3/uL (0.0-0.7) 04/30/17 06:17 Baso # 0.1 10^3/uL (0.0-0.1) 04/30/17 06:17 Absolute Nucleated RBC 0.00 x10^3/uL 04/30/17 06:17 Nucleated RBCs 0.0 /100WBC 04/30/17 06:17 PT 14.8 secs (9.9-12.6) H 04/29/17 08:00 INR 1.3 (0.8-1.2) H 04/29/17 08:00 Anti-Xa Level 0.5 U/mL (-0.7) 04/30/17 06:17 Sodium 140 mmol/L (135-145) 04/30/17 06:17 Potassium 3.9 mmol/L (3.5-5.0) 04/30/17 06:17 Chloride 111 mmol/L (101-111) 04/30/17 06:17 Carbon Dioxide 25 mmol/L (21-32) 04/30/17 06:17 Anion Gap 4.0 (6-13) L 04/30/17 06:17 BUN 13 mg/dL (6-20) 04/30/17 06:17 Creatinine 0.8 mg/dL (0.6-1.2) 04/30/17 06:17 Estimated GFR (MDRD) 94 (>89) 04/30/17 06:17 Glucose 109 mg/dL (70-100) H 04/30/17 06:17 Lactic Acid 1.5 mmol/L (0.5-2.2) 04/28/17 14:02 Calcium 8.2 mg/dL (8.5-10.3) L 04/30/17 06:17 Total Bilirubin 0.5 mg/dL (0.2-1.0) 04/30/17 06:17 AST 36 IU/L (10-42) 04/30/17 06:17 ALT 37 IU/L (10-60) 04/30/17 06:17 Alkaline Phosphatase 109 IU/L (42-121) 04/30/17 06:17 Troponin I < 0.04 ng/mL (<0.49) 04/28/17 14:02 Total Protein 5.9 g/dL (6.7-8.2) L 04/30/17 06:17 Albumin 2.6 g/dL (3.2-5.5) L 04/30/17 06:17 Globulin 3.3 g/dL (2.1-4.2) 04/30/17 06:17 Albumin/Globulin Ratio 0.8 (1.0-2.2) L 04/30/17 06:17 Lipase 19 U/L (22-51) L 04/28/17 14:02 Urine Color YELLOW 04/28/17 15:34 Urine Clarity CLOUDY (CLEAR) 04/28/17 15:34 Urine pH 6.5 PH (5.0-7.5) 04/28/17 15:34 Ur Specific [place] 1.015 (1.002-1.030) 04/28/17 15:34 Urine Protein 30 mg/dL (NEGATIVE) H 04/28/17 15:34 Urine Glucose (UA) NEGATIVE mg/dL (NEGATIVE) 04/28/17 15:34 Urine Ketones NEGATIVE mg/dL (NEGATIVE) 04/28/17 15:34 Urine Occult Blood LARGE (NEGATIVE) H 04/28/17 15:34 Urine Nitrite POSITIVE (NEGATIVE) H 04/28/17 15:34 Urine Bilirubin NEGATIVE (NEGATIVE) 04/28/17 15:34 Urine Urobilinogen 1 (NORMAL) E.U./dL (NORMAL) 04/28/17 15:34 Ur Leukocyte Esterase LARGE (NEGATIVE) H 04/28/17 15:34 Urine RBC 6-10 /HPF (0-5) H 04/28/17 15:34 Urine WBC >25 /HPF (0-3) H 04/28/17 15:34 Ur Squamous Epith Cells FEW Squamous (<= Few) 04/28/17 15:34 Amorphous Sediment Marked /LPF 04/28/17 15:34 Urine Bacteria Many /HPF (None Seen) H 04/28/17 15:34 Ur Microscopic Review INDICATED 04/28/17 15:34 Urine Culture Comments INDICATED 04/28/17 15:34
[2017-04-30] MEDS: WARFARIN 5 MG TABLET PO SCH (14:43)
[2017-04-30] MEDS: ATORVASTATIN 40 MG TABLET PO SCH (20:25)
[2017-05-01] MEDS: SODIUM CHLORIDE FLUSH 0.9% 10 ML SYRINGE IVP SCH ×2 (04:30→13:39)
[2017-05-01] MEDS: GABAPENTIN 300 MG CAPSULE PO SCH ×2 (06:09→13:37)
[2017-05-01 06:48] LABS: BASOPHILS # (AUTO) 0.1 10^3/uL (0.0-0.1); HGB - HEMOGLOBIN 12.7 g/dL (14.0-18.0); MONOCYTES # (AUTO) 0.8 10^3/uL (0.0-1.0); NUCLEATED RED BLOOD CELLS AUTO 0.1 /100WBC
[2017-05-01 06:57] LABS: ALBUMIN/GLOBULIN RATIO 0.7 (1.0-2.2); BILIRUBIN,TOTAL 0.4 mg/dL (0.2-1.0); CALCIUM 8.5 mg/dL (8.5-10.3); CREATININE 0.9 mg/dL (0.6-1.2); POTASSIUM 4.1 mmol/L (3.5-5.0); TOTAL PROTEIN 6.1 g/dL (6.7-8.2)
[2017-05-01 07:02] LABS: EOSINOPHILS # (AUTO) 0.5 10^3/uL (0.0-0.7); EOSINOPHILS % (AUTO) 4.8 %; LYMPHOCYTES % (AUTO) 31.9 %; MEAN CORPUSCULAR HGB CONC 32.6 g/dL (32.0-36.0); MEAN PLATELET VOLUME 8.5 fL (7.4-11.4); MONOCYTES % (AUTO) 8.8 %; NEUTROPHILS # (AUTO) 5.1 10^3/uL (1.5-6.6); NEUTROPHILS % (AUTO) 53.5 %; RED BLOOD COUNT 4.38 10^6/uL (4.70-6.10); UNCORRECTED WHITE BLOOD COUNT 9.5 x10^3/uL; WHITE BLOOD COUNT 9.5 x10^3/uL (4.8-10.8)
[2017-05-01] MEDS: SODIUM CHLORIDE 0.9% 1,000 ML IV SCH (07:46)
[2017-05-01] MEDS: OXYBUTYNIN 5MG TABLET PO SCH (08:00)
[2017-05-01] MEDS: POLYETHYLENE GLYCOL 3350 17 GM PACKET PO SCH (08:01)
[2017-05-01] MEDS ORDERED: ENOXAPARIN 150 MG/ML SYRINGE SUBQ SCH (09:00)
--- NOTE | 2017-05-01 13:09 | DISCHARGE SUMMARY ---
DATE OF ADMISSION: 04/28/2017 DATE OF DISCHARGE: 05/01/2017 PRIMARY CARE PHYSICIAN: Vanessa Krishnamurthy DO ADMISSION DIAGNOSES 1. Acute respiratory failure with hypoxia. 2. Pulmonary emboli. 3. Urinary tract infection. 4. Right ankle fracture. 5. Super obesity. DISCHARGE DIAGNOSES 1. Acute respiratory failure with hypoxia, improved. 2. Pulmonary emboli on heparin followed by the Lovenox and has bridge to warfarin with therapeutic INR in progress. 3. Urinary tract infection. Final sensitivities pending. 4. Pneumonia, presumptively community-acquired, seen on day 2 chest x-ray. 5. Super morbid obesity, lifelong. 6. Gastroesophageal reflux disease. 7. Sick sinus syndrome, status post pacemaker placement. 8. Spinal stenosis status post multiple surgeries with significant loss of function of both legs. SPECIAL PROCEDURES: The patient had a CTA of the chest. Impression: 1) Positive pulmonary embolism, right more than left, with moderate to large total amount of clot. 2) Pulmonary artery hypertension. 3) Small hiatal hernia and other chronic incidental findings. CXR shows no acute disease; however, the chest CT shows some bibasilar atelectasis and clinical findings consistent with pneumonia. HOSPITAL COURSE AND MANAGEMENT: The initial presentation, hospital emergency evaluation, and hospitalist plan is well-described in the history and physical. SUMMARY: Armani began developing fevers. He also had confusion and was found to have a picture of sepsis with hypoxia, fevers, tachycardia. He has also signs of urinary tract infection and a CT angiogram that showed bilateral pulmonary emboli, and was started on a heparin drip over the course of the next 2 days. His oxygen requirement decreased down to room air. The patient had blood cultures that were positive for a contaminate-type organism, Strep anginosus. The patient's urinary culture had a Gram-negative growth of greater than 100,000 and enterococcus species, both pending final ID. The patient did have positive Hemoccult cards 09/03. No judi blood. The patient was able to be placed in a chair using a lift, spent several hours up and felt better. He is nonweightbearing and wears a boot when he is up in a wheelchair or a regular chair. The patient had warfarin started with the transition from the heparin drip and then to Lovenox for ease of delivery. PHYSICAL EXAMINATION ON DISCHARGE VITAL SIGNS: 36.8, 57, 142/59, 16, 94% room air saturation. EYES: EOMs within normal limits. PERRL. Nonicteric. MOUTH AND THROAT: Dentures in place. No other pathology, e.g. thrush. NECK: No lymphadenopathy, no thyromegaly, no bruits. CHEST WALL: Nontender. Symmetric. HEART: Sinus rhythm. No murmur, rubs, clicks. LUNGS: Few crackles continued more on right than left. The patient's air movement is improved. ABDOMEN: Very thick abdominal wall, soft, nontender. RECTAL/GENITAL: Exams not done. EXTREMITIES: He has edema and scaling of his feet and onychomycosis also noted. LABORATORY DATA: He has a white count of 9.5, 12 and 39 hemoglobin and hematocrit, and platelet count of 206. Sodium 141, potassium is 4.1, chloride 108, CO2 is 26, BUN 13, creatinine 0.9, glucose is 106, and calcium is 8.5. Normal liver enzymes and albumin of 2.6. DISCHARGE INSTRUCTIONS: He is going to be placed at [facility] with PT, OT and medication administration, i.e. Lovenox, with monitoring of his INRs. MEDICATIONS 1. Lovenox 150 mg subcu b.i.d. 2. Warfarin 5 mg p.o. daily to adjust according to INR. 3. Coreg 25 mg p.o. b.i.d. 4. Lipitor 40 mg daily. 5. Aspirin 81 mg a day. 6. Zantac 150 mg b.i.d. 7. Ocuvite 5 mg b.i.d. 8. Ditropan 5 mg b.i.d. 9. Tylenol 650 q.4 hours p.r.n. pain 2-5. 10. Levaquin 500 mg for 3 more days. 11. Oxycodone5 mg p.o. q.4 hours, maximum of 4 per day, p.r.n. pain greater than 5. FOLLOWUP: The patient will be followed by Dr. San initially and then Dr. Krishnamurthy. Also is going to have a consultation with an appointment with Dr. Dwight Morrison for his fracture of his right ankle. The patient will need to have a repeat urine and a chest x-ray to verify clear infection. Time spent in discharge activity was 50 minutes, and there was collaboration with case management and nursing. The patient was examined on day of discharge as noted above. JOB #: [id number] EXT JOB #:[id number] NESSA
[2017-05-01 13:29] VITALS: BP 151/88
[2017-05-01] MEDS: WARFARIN 5 MG TABLET PO SCH (13:37)
== END 2017-05-01 14:00 | DRG 175 ==
LOC: EDUNIT# → ED 13:33 → MS2 15:59
PROVIDERS: ADMIT Specialist; ATTEND Internal Medicine
DX: I26.99 Other pulmonary embolism without acute cor pulmonale (principal); N39.0 Urinary tract infection, site not specified; J96.01 Acute respiratory failure with hypoxia; J18.9 Pneumonia, unspecified organism; E78.00 Pure hypercholesterolemia, unspecified; I25.10 Atherosclerotic heart disease of native coronary artery without angina pectoris; I25.2 Old myocardial infarction; Z95.5 Presence of coronary angioplasty implant and graft; Z68.42 Body mass index [BMI] 45.0-49.9, adult; G82.20 Paraplegia, unspecified; T83.511A Infection and inflammatory reaction due to indwelling urethral catheter, initial encounter; B95.2 Enterococcus as the cause of diseases classified elsewhere; E66.01 Morbid (severe) obesity due to excess calories; G47.33 Obstructive sleep apnea (adult) (pediatric); N31.9 Neuromuscular dysfunction of bladder, unspecified; S82.891D Other fracture of right lower leg, subsequent encounter for closed fracture with routine healing; Z66 Do not resuscitate; K21.9 Gastro-esophageal reflux disease without esophagitis; I49.5 Sick sinus syndrome; M48.00 Spinal stenosis, site unspecified; I27.2 Other secondary pulmonary hypertension; R15.9 Full incontinence of feces; K44.9 Diaphragmatic hernia without obstruction or gangrene; E78.5 Hyperlipidemia, unspecified; I10 Essential (primary) hypertension; M19.90 Unspecified osteoarthritis, unspecified site; H91.3 Deaf nonspeaking, not elsewhere classified; J38.00 Paralysis of vocal cords and larynx, unspecified; Z95.0 Presence of cardiac pacemaker; Z96.651 Presence of right artificial knee joint; Z79.82 Long term (current) use of aspirin; Z79.899 Other long term (current) drug therapy
CPT/HCPCS: 36415; 71010; 71275; 80053; 81001; 81003; 82270; 83605; 83690; 84484; 85025; 85520; 85610; 87040; 87070; 87077; 87081; 87086; 87205; 87491; 87591; 93005; 96361; 96365; 96375; 99283; 99284; 99285

== ENCOUNTER 2017-06-25 07:26 | Outpatient (CLI) | payer MEDICARE, OTHER | END 2017-06-25 07:27 | disposition critical access hospital (66) | LOC: EMS 07:26 | PROVIDERS: ATTEND Surgery | DX: R50.9 Fever, unspecified (principal) | CPT/HCPCS: A0425; A0429 ==

== ENCOUNTER 2017-07-02 08:00 | Outpatient (CLI) | payer MEDICARE, OTHER ==
[2017-07-03 07:23] LABS: CREATININE 0.9 mg/dL (0.6-1.2)
== END 2017-07-02 23:59 | disposition home or self-care (01) ==
LOC: LAB.R 08:00
DX: N18.9 Chronic kidney disease, unspecified (principal)
CPT/HCPCS: 82565; 84520

== ENCOUNTER 2017-07-02 11:34 | Outpatient (CLI) | payer MEDICARE, OTHER ==
[2017-07-02 09:46] LABS: POTASSIUM 3.9 mmol/L (3.5-5.0)
== END 2017-07-02 11:35 | disposition home or self-care (01) ==
LOC: LAB.R 11:34
DX: A41.9 Sepsis, unspecified organism (principal); I10 Essential (primary) hypertension
CPT/HCPCS: 80051

== ENCOUNTER 2017-07-15 16:59 | Outpatient (CLI) | payer MEDICARE, OTHER ==
[2017-07-15 18:07] LABS: CALCIUM 8.7 mg/dL (8.5-10.3); CREATININE 0.9 mg/dL (0.6-1.2); POTASSIUM 3.9 mmol/L (3.5-5.0)
== END 2017-07-15 17:00 ==
LOC: LAB.R 16:59
DX: I10 Essential (primary) hypertension (principal)
CPT/HCPCS: 80048

== ENCOUNTER 2017-08-08 22:35 | Outpatient (CLI) | payer MEDICARE, OTHER, MEDICAID | END 2017-08-08 22:36 | disposition EMS.NT | LOC: EMS 22:35 | PROVIDERS: ATTEND Surgery | DX: Z03.89 Encounter for observation for other suspected diseases and conditions ruled out (principal); Z74.2 Need for assistance at home and no other household member able to render care ==

== ENCOUNTER 2017-08-09 09:13 | Outpatient (CLI) | payer MEDICARE, OTHER, MEDICAID | END 2017-08-09 09:14 | disposition critical access hospital (66) | LOC: EMS 09:13 | PROVIDERS: ATTEND Surgery | DX: R53.1 Weakness (principal); W18.30XA Fall on same level, unspecified, initial encounter; Y92.009 Unspecified place in unspecified non-institutional (private) residence as the place of occurrence of the external cause | CPT/HCPCS: A0425; A0429 ==

== ENCOUNTER 2017-08-09 09:35 | Emergency (ER) | payer MEDICARE, OTHER, MEDICAID ==
--- NOTE | 2017-08-09 12:24 | ED Physician Documentation ---
History of Present Illness - Stated complaint Stated Complaint: GLF - Chief complaint Chief Complaint: Ext Problem - History obtained from History obtained from: Patient, EMS - History of Present Illness Timing: Yesterday Pain level max: 1 Pain level now: 1 Improved by: nothing Worsened by: nothing - Additonal information Additional information: Patient is a 76-year-old male with a history of a right tibia fracture and has been in [facility] for the past several months. He had a home set up visits that went well and so he was discharged yesterday. Since that time he has fallen 3 times at home. Patient has no injuries from the falls. Did not hit his head. No neck or back pain He is mostly nonambulatory at baseline because of spinal issues. He is able to transfer usually. Denies any fevers, chills. Denies any injury. States that he feels that he needs to go back to [facility] to become stronger to be able to transfer and be safe at home. Review of Systems Ten Systems: 10 systems reviewed and negative Constitutional: denies: Fever, Chills Ears: denies: Ear pain Nose: denies: Rhinorrhea / runny nose, Congestion Throat: denies: Sore throat Cardiac: denies: Chest pain / pressure Respiratory: denies: Cough GI: denies: Abdominal Pain, Nausea, Vomiting, Diarrhea Skin: denies: Rash Musculoskeletal: reports: Back pain (chronic, unchanged). denies: Neck pain Neurologic: denies: Headache PD PAST MEDICAL HISTORY - Past Medical History Past Medical History: Yes Cardiovascular: Hypertension, High cholesterol, Coronary artery disease, [place] Respiratory: None Neuro: None Endocrine/Autoimmune: None GI: GERD : Retention, Indwelling catheter HEENT: Dental implants Psych: None Musculoskeletal: Fatigue, Chronic back pain Derm: None - Past Surgical History Past Surgical History: Yes General: Colonoscopy Ortho: Knee replacement, Other Cardiovascular: Coronary stent, Pacemaker, Angioplasty HEENT: Cataracts - Present Medications Home Medications: Ambulatory Orders Medication Instructions Recorded Confirmed Aspirin [Aspir 81] 81 mg PO DAILY 08/03/15 08/09/17 Carvedilol 25 mg PO BID 08/04/15 08/09/17 Multivit with Calcium,Iron,Min 1 tab PO DAILY 08/04/15 08/09/17 [Maximum Daily Multivitamin] Acetaminophen [Tylenol] 650 mg PO Q4HR PRN #0 tablet 06/28/17 08/09/17 Gabapentin [Neurontin] 600 mg PO TID #30 06/28/17 08/09/17 Warfarin [Coumadin] 5 mg PO DAILY #30 06/28/17 08/09/17 raNITIdine [Zantac] 150 mg PO BID #30 06/28/17 08/09/17 - Allergies Allergies/Adverse Reactions: Allergies Allergy/AdvReac Type Severity Reaction Status Date / Time No Known Drug Allergies Allergy Verified 08/09/17 09:48 - Social History Does the pt smoke?: No Smoking Status: Never smoker Does the pt drink ETOH?: No Does the pt have substance abuse?: No - Immunizations Immunizations are current?: No - POLST Patient has POLST: No POLST Status: Full Code PD ED PE NORMAL - Vitals Vital signs reviewed: Yes - General General: Alert and oriented X 3, No acute distress, Well developed/nourished - HEENT HEENT: PERRL, Moist mucous membranes - Neck Neck: Supple, no meningeal sign - Cardiac Cardiac: RRR, Strong equal pulses - Respiratory Respiratory: No respiratory distress, Clear bilaterally - Abdomen Abdomen: Soft, Non tender, Non distended - Derm Derm: Warm and dry - Extremities Extremities: No calf tenderness / cord, Other (2+ B LE edema) - Neuro Neuro: Alert and oriented X 3 - Psych Psych: Normal mood, Normal affect Results - Vitals Vitals: Vital Signs - 24 hr 08/09/17 08/09/17 09:45 12:07 Temperature 36.6 C Heart Rate 62 66 Respiratory 16 20 Rate Blood Pressure 139/61 H 133/96 H O2 Saturation 96 97 Oxygen O2 Source Room air - Labs Labs: Laboratory Tests 08/09/17 08/09/17 08/09/17 12:59 12:59 12:59 WBC 10.0 RBC 5.23 Hgb 14.6 Hct 44.0 MCV 84.2 MCH 27.8 MCHC 33.0 RDW 16.9 H Plt Count 212 MPV 8.3 Neut # 6.4 Lymph # 2.7 [place] # 0.5 Eos # 0.4 Baso # 0.0 Absolute Nucleated RBC 0.00 Nucleated RBC % 0.0 PT 21.0 H INR 1.9 H Sodium 139 Potassium 4.5 Chloride 100 L Carbon Dioxide 27 Anion Gap 12.0 BUN 19 Creatinine 1.0 Estimated GFR (MDRD) 73 L Glucose 110 H Calcium 9.1 Total Bilirubin 1.1 H AST 27 ALT 19 Alkaline Phosphatase 106 Total Protein 6.8 Albumin 3.5 Globulin 3.3 Albumin/Globulin Ratio 1.1 Lipase 10 L PD MEDICAL DECISION MAKING - ED course Complexity details: reviewed old records, reviewed results, re-evaluated patient , considered differential, d/w patient, d/w consultant internship ED course: Patient is a 76-year-old male who was recently released from [facility] for rehabilitation after a fractured tibia. He has fallen 3 times in the last 12 hours and has not been home over 24 hours yet, patient would like to go back to [facility] for further rehab and I think this is reasonable. The asked about [facility] placement, but there are no beds available at the [facility] today. Recommend that she call the spinal clinic at the [facility] on Friday to inquire further about his history of back issues. There are no acute neurological issues today. His catheter was also replaced, there was some difficulty with this and he likely has prostatic enlargement. We will have him follow-up with his PCP for further care of this. Dr. Jose, on-call for Dr. Krishnamurthy wrote the orders for [facility] and the patient will be sent back there for further care. Patient and family counseled regarding signs and symptoms for which I believe and urgent re-evaluation would be necessary. Patient with good understanding of and agreement to plan and is comfortable going home at this time This document was made in part using voice recognition software. While efforts are made to proofread this document, sound alike and grammatical errors may occur. Departure - Departure Disposition: Home, Self Care Clinical Impression: Generalized weakness, Multiple falls, Urinary retention Condition: Good Instructions: ED Fall Dizziness Weakn Balance Follow-Up: Vanessa Krishnamurthy DO [Primary Care Provider] - Within 1 week Comments: You are going to go back to [facility] today for further rehab. you should call the [facility] spine clinic on friday to ask about an appointment for his back. You may need a new referral from his doctor.
[2017-08-09 13:13] LABS: BASOPHILS % (AUTO) 0.3 %; EOSINOPHILS # (AUTO) 0.4 10^3/uL (0.0-0.7); EOSINOPHILS % (AUTO) 3.8 %; HGB - HEMOGLOBIN 14.6 g/dL (14.0-18.0); LYMPHOCYTES # (AUTO) 2.7 10^3/uL (1.5-3.5); LYMPHOCYTES % (AUTO) 27.3 %; MEAN CORPUSCULAR HEMOGLOBIN 27.8 pg (27.0-31.0); MEAN CORPUSCULAR VOLUME 84.2 fL (80.0-94.0); MEAN PLATELET VOLUME 8.3 fL (7.4-11.4); MONOCYTES # (AUTO) 0.5 10^3/uL (0.0-1.0); NEUTROPHILS # (AUTO) 6.4 10^3/uL (1.5-6.6); NEUTROPHILS % (AUTO) 63.6 %; RED BLOOD COUNT 5.23 10^6/uL (4.70-6.10); RED CELL DISTRIBUTION WIDTH 16.9 % (12.0-15.0)
[2017-08-09 13:18] LABS: ALBUMIN/GLOBULIN RATIO 1.1 (1.0-2.2); BILIRUBIN,TOTAL 1.1 mg/dL (0.2-1.0); CALCIUM 9.1 mg/dL (8.5-10.3); POTASSIUM 4.5 mmol/L (3.5-5.0); TOTAL PROTEIN 6.8 g/dL (6.7-8.2)
[2017-08-09 15:47] LABS: INR 1.9 (0.8-1.2)
[2017-08-09 16:48] VITALS: BP 133/79
== END 2017-08-09 16:47 | disposition home or self-care (01) ==
LOC: EDUNIT# → ED 09:35
DX: R53.1 Weakness (principal); R33.9 Retention of urine, unspecified; Z91.81 History of falling; I10 Essential (primary) hypertension; E78.00 Pure hypercholesterolemia, unspecified; I25.10 Atherosclerotic heart disease of native coronary artery without angina pectoris; I25.2 Old myocardial infarction; Z95.0 Presence of cardiac pacemaker; K21.9 Gastro-esophageal reflux disease without esophagitis; Z79.82 Long term (current) use of aspirin; Z79.01 Long term (current) use of anticoagulants
CPT/HCPCS: 36415; 51703; 51798; 80053; 83690; 85025; 85610; 99283

== ENCOUNTER 2017-08-11 10:10 | Outpatient (CLI) | payer MEDICARE, OTHER, MEDICAID ==
[2017-08-11 10:54] LABS: BILIRUBIN,URINE NEGATIVE (NEGATIVE)
[2017-08-11 10:56] LABS: UA w/ MICROSCOPIC CHARGE YES
[2017-08-11 11:12] LABS: UR CULTURE IF IND INDICATED; WBC,URINE >25 /HPF (0-3)
== END 2017-08-11 10:11 | disposition home or self-care (01) ==
LOC: LAB.R 10:10
DX: N39.0 Urinary tract infection, site not specified (principal)
CPT/HCPCS: 81001; 81003; 87086

== ENCOUNTER 2017-10-06 12:00 | Outpatient (CLI) | payer MEDICARE, OTHER, MEDICAID | END 2017-10-06 12:01 | disposition home or self-care (01) | LOC: LAB.R 12:00 | DX: A04.72 Enterocolitis due to Clostridium difficile, not specified as recurrent (principal) | CPT/HCPCS: 87493 ==

== ENCOUNTER 2017-10-14 09:13 | Outpatient (CLI) | payer MEDICARE, OTHER, MEDICAID | END 2017-10-14 09:14 | disposition EMS.NT | LOC: EMS 09:13 | PROVIDERS: ATTEND Surgery | DX: Z03.89 Encounter for observation for other suspected diseases and conditions ruled out (principal); W01.0XXA Fall on same level from slipping, tripping and stumbling without subsequent striking against object, initial encounter; Y92.002 Bathroom of unspecified non-institutional (private) residence as the place of occurrence of the external cause ==

== ENCOUNTER 2017-12-02 17:32 | Outpatient (CLI) | payer MEDICARE, OTHER, MEDICAID ==
--- NOTE | 2017-12-02 18:42 | CONSULTATION NOTE ---
Palliative Care Consultation - Referral Referring Provider: Dr Krishnamurthy Time of Visit: 12/02/2017. 13;20 - 15:00. Referral setting: Home (Seen in home setting due to taxing and considerable effort required to leave the home due to high fall risk secondary to increased lower extremity weakness following fractured tibia.) Referral Reason: Lower extremity weakness s/p tibia fracture - Information Sources Records reviewed: Previous records reviewed History/Review of Systems obtained from: Patient, Family Exam limitations: No limitations - History of Present Illness Brief History of Present Illness: This is a 76-year old man with a history of morbid obesity, R ankle fracture in March 2017, chronic back issues with neuropathy, on gabapentin s/p remote laminectomy (at [facility]) 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 At baseline s he is non-ambulatory in a wheelchair most of the time but able to transfer. - He fractured the R tibia March 19, 2017 and was placed in [facility] for rehabilitation for 7 months, from 03/19/17 to 10/28/17 for rehabilitation. - During his months at [facility], he was admitted to hospital 04/28/17 for acute respiratory failure with hypoxia, PE, and UTI and again in 06/2017 for urosepsis. - In 08/2017, he was discharged home, but after falling 3 times within 12 hours , returned to [facility] for further rehabilitation. - He has had 12+ falls over the past year; doesn't describe them as "falls," but as his R leg "giving out." Prior to the fracture of the tibia, it was his R knee that "gave out." - He and his note he is improving his strength and stamina with PT. He's doing much better, feeling stronger. - But he still wants to stand up more. He uses his arms to support his body weight. - He wants to use [facility] for PT as he had previously done with out- patient PT. I explained he can't do both out-patient PT and Home Health PT. - He is currently housebound, only gets out for medical appointments. - Chronic pain in lower back, and burning neuropathic pain in lower extremities "all the time." Refused gabapentin adjustment, will follow up with PCP at 4/30 visit. - Chronic pain in shoulders is well managed with Tylenol 1,000mg at bedtime. - Lives in split level home. Has a stair chair that facilitates his mobility up and down the stairs. - Has had three pacemakers since 1988. The current one was placed in 2009. 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 - He is on Home Health Physical Therapy and Nursing, but may soon be discharged from Nursing. OT evaluation indicated no OT needs at this time. Medical/Surgical History - Past Medical History Cardiovascular: reports: Hypertension, High cholesterol, Coronary artery disease , DC Respiratory: reports: None Neuro: reports: None, Peripheral neuropathy (lower extremities) Endocrine/Autoimmune: reports: None. denies: Type 2 diabetes (Fasting blood glucose 110 on 08/09/2017.) GI: reports: GERD : reports: Retention, Indwelling catheter HEENT: reports: Chronic hearing loss, Dental implants Psych: reports: None Musculoskeletal: reports: Fatigue, Chronic back pain Derm: reports: None MRSA Hx?: No - Past Surgical History General: reports: Colonoscopy, Other (tonsilectomy in childhood) Ortho: reports: Knee replacement, Other (two back surgeries: laminectomy at [facility] in 2002 and herniated disc around the same time) Cardiovascular: reports: Coronary stent, Pacemaker (three pacemakers placed: first one 1988, 3rd one in 2009), Angioplasty HEENT: reports: Cataracts - Substance History Use: Uses substance without health or social issues: NONE Social History - Living Situation Living arrangement: At home Living Situation: With spouse/s.o. 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 Patient has one son living in [facility]. His has three adult children. Family History - Family History Family History: Mother: (Both parents at age 50, father from heardening of arteries. mother sickened on the farm and suddenly. Sister age 1.5 yrs.), Father: , CVA/TIA, Sister: Alive and Well (1 sister and 3 brothers are living. One brother also has a pacemaker), , Brother : Alive and Well Medications/Allergies - Medications Home Medications: Ambulatory Orders Medication Instructions Recorded Confirmed Aspirin [Aspir 81] 81 mg PO DAILY 08/03/15 12/02/17 Carvedilol 25 mg PO BID 08/04/15 12/02/17 Multivit with Calcium,Iron,Min 1 tab PO DAILY 08/04/15 12/02/17 [Maximum Daily Multivitamin] Gabapentin [Neurontin] 600 mg PO TID #30 06/28/17 12/02/17 raNITIdine [Zantac] 150 mg PO BID #30 06/28/17 12/02/17 Acetaminophen 1,000 mg PO PRN MDD 3000mg in 24 12/02/17 hours Atorvastatin Calcium 40 mg PO DAILY 12/02/17 12/02/17 C,E,Zinc,Copper 11/Drtsr6p/Lut 1 cap PO DAILY 12/02/17 12/02/17 [Ocuvite Adult 50 Plus Softgel] Multivitamin [Multiple Vitamins] 1 tab PO DAILY 12/02/17 12/02/17 - Allergies Allergies/Adverse Reactions: Allergies Allergy/AdvReac Type Severity Reaction Status Date / Time No Known Drug Allergies Allergy Verified 08/09/17 09:48 Review of Systems - Constitutional Constitutional: reports: Fatigue (Doesn't sleep enough at night), Weight loss ( Patient reports 293 lbs on 11/25/17. He feels as though he has lost some weight.) . denies: Fever, Chills, Poor appetite - Eyes Eyes: reports: Corrective lenses - Ears, Nose & Throat Ears, Nose & Throat: reports: Hearing loss, Hearing aids (doesn't wear them), Tinnitus, Other (sinus problems) - Cardiovascular Cardiovascular: reports: Edema (wears compression stockings). denies: Palpitations, Chest pain - Respiratory Respiratory: denies: Cough, Wheezing, Hemoptysis, SOB at rest, SOB with exertion - Gastrointestinal Gastrointestinal: denies: Abdominal pain, Constipation, Diarrhea, Pollo blood emesis, Poor appetite - Genitourinary Genitourinary: reports: Other (Self catheterizes - places Hull indwelling catheter every night.). denies: Dysuria, Frequency, Hematuria - Musculoskeletal Musculoskeletal: reports: Back pain, Stiffness, Muscle weakness, Joint pain ( fingers and knee), Assistive devices (wheelchair,), Transfer issues - Integumentary Integumentary: denies: Rash, Pruritis - Neurological Neurological: reports: Numbness (and tingling). denies: Focal weakness, Headache, Seizures - Endocrine Endocrine: denies: Diabetes type 2 (Fasting blood glucose 110) - Hematologic/Lymphatic Hematologic/Lymphatic: reports: Bruising, Other (slow to heal. On Apixaban and aspirin) Physical Exam - Vital Signs Temperature: 96.4 F Pulse Rate: 57 O2 Saturation: 99 Blood Pressure: 140/82 - Physical Exam General Appearance: positive: No acute distress, Alert Eyes Bilateral: positive: EOMI, No lid inflammation, Conjunctivae nml, No scleral icterus ENT: positive: No signs of dehydration Neck: positive: No JVD, Trachea midline Cardiovascular: positive: Regular rate & rhythm Respiratory: positive: Breath sounds nml, Diminished throughout (likely from body habitus) Skin: positive: No symptoms Extremities: positive: Pedal edema (1+ wearing compression hose) Neurologic/Psychiatric: positive: Oriented x3, Mood/affect nml Palliative Care Pain: Pain improved (shoulder pain improved with Tylenol and sessions with chiropractor. He reports this doesn't help the back pain) Tiredness/Fatigue: Mild (1-3) Drowsiness/Sedation: None Anorexia: None Sleep: Other (Takes hours to fall asleep at night.) Constipation: No Feelings of wellbeing/Perceived Quality of Life: Fair (He feels upset at not being able to do things he could previously do, like work on his car) Performance Status: Performs own ADLs. Non-ambulatory but starting to walk specified distance during PT. - Palliative Care Discussion: His goal is to walk with his walker. He doesn't expect to be able to walk independently due to the long-term effects of the staphylococcus infection. He wants to use his motorized scooter again, to regain some of his independence and so his doesn't have to wheel him in the wheelchair. His current POLST is CPR but no intubation. I provided education that these two options don't work together. He expresses worry about becoming "a vegetable" and being a burden on his . He states he does not want prolongation of life , and definitely doesn't want intubation, but isn't ready to make a choice for DNR. He asks her advice, but she says it is his choice. He will think about it. He doesn't think of his falls as "falls" but as his legs giving out. He and his both note he's gained strength and is doing better with PT. He is homebound but they hope to take a weekend trip the first week in December Impression and Recommendations - Palliative Care Impression: This is a 76-year old man with a history of morbid obesity, R ankle fracture in March 2017, chronic back issues with neuropathy, on gabapentin s/p remote laminectomy complicated by staphylococcal infection of the spine, loss of function of bilateral legs, urinary retention, recurrent UTIs, pulmonary embolism, sick sinus syndrome s/p pacemaker, h/o DC, GERD, pneumonia. At baseline s he is non-ambulatory in a wheelchair most of the time, able to transfer but poorly. After fracturing his R tibia he was in [facility] for 7 months. He continues to fall frequently and is still weak, but has made progress in strength and stamina with Home Health PT. Home Health nursing is likely discharging him soon. He would benefit from ongoing palliative care oversight and monitoring. Recommendations/Counseling Done: Urinary retention: He self-catheterizes during the day and uses a Hull indwelling catheter 12 hours at night. Cleans and reuses supplies to save on cost. I provided education regarding infection risks, but he says he's done this "for years," with "only two" bladder infections. Managed by urologist Mahi Nguyen in [facility], last appointment was 11/20, follow up shelley't is Pulmonary embolism: Coumadin was DC'd, he's currently on Eliquis 5mg BID and aspirin 81mg daily. Will remain on anticoagulation for life. Managed by PCP Dr Krishnamurthy, next follow up is 12/29. Neuropathy of LEs: At baseline, constant pain. Currently gabapentin 600mg TID, wants to follow up with PCP at 12/29 visit. Spinal stenosis: Chronic pain. Continue PT and OT. Next appointment with Dr Kayla Ford at the [facility] on 12/05. Chronic shoulder pain: Managed with Tylenol 1000mg at bedtime, and 1000mg during the day prn. Pain improved since getting chiropractic treatment Insomnia: Difficulty falling asleep. Provided education on sleep hygiene techniques.Weighed benefits and burdens of pharmaceuticals, he is not interested at present. Advanced care planning: Current POLST signed 03/2017 is CPR and limited interventions (no intubation), but he does not have the original copy. His made a photocopy of my photocopy. I explained these CPR and limited interventions/no intubation don't work together, we discussed revising his POLST. He does not want prolongation of life and definitely doesn't want intubation, but cannot decide on DNR vs CPR. He wants to think about it. Follow up visit scheduled for December 8, 11:00. Time Spent: 100 minutes were spent with more than 50% of the time spent on counseling, education, and coordination of care.
== END 2017-12-02 17:33 | disposition home or self-care (01) ==
LOC: PC 17:32
PROVIDERS: ATTEND Nurse Practitioner
DX: Z51.5 Encounter for palliative care (principal); R33.9 Retention of urine, unspecified; G62.9 Polyneuropathy, unspecified; M48.00 Spinal stenosis, site unspecified; M25.519 Pain in unspecified shoulder; G47.00 Insomnia, unspecified; M79.605 Pain in left leg; M79.604 Pain in right leg; R53.1 Weakness; M54.5 Low back pain; E66.01 Morbid (severe) obesity due to excess calories; I11.9 Hypertensive heart disease without heart failure; I25.10 Atherosclerotic heart disease of native coronary artery without angina pectoris; R60.9 Edema, unspecified; Z86.711 Personal history of pulmonary embolism; Z91.81 History of falling; Z79.82 Long term (current) use of aspirin; Z79.01 Long term (current) use of anticoagulants; Z95.0 Presence of cardiac pacemaker; Z95.5 Presence of coronary angioplasty implant and graft
CPT/HCPCS: 99345

== ENCOUNTER 2018-01-06 11:15 | Outpatient (CLI) | payer MEDICARE, OTHER ==
--- NOTE | 2018-01-06 16:47 | CONSULTATION NOTE ---
Palliative Care Follow Up - Referral Referring Provider: Dr Krishnamurthy Time of Visit: 01/06/2018. 11:15 - 11:55 Referral setting: Home (Seen in home setting due to taxing and considerable effort required to leave the home due to lower extremity weakned s/p R tibia fracture.) Referral Reason: Lower extremity weakness - Information Sources Records reviewed: Previous records reviewed History/Review of Systems obtained from: Patient, Family Exam limitations: No limitations - History of Present Illness Update Brief HPI Update: -76-year-old man with right ankle fracture in March 2017 s/p fall. -Medical history: Morbid obesity, chronic back issues with neuropathy, on gabapentin S/P remote laminectomy (at [facility]) complicated by staphylococcal infection of the spine and loss of function to bilateral legs, urinary retention , recurrent UTIs, DVT/pulmonary embolism, sick sinus syndrome S/P pacemaker, history of OR, GERD, pneumonia. -He has had 12+ falls over the past year. -He fractured the right tibia March 19, 2017 and was in [facility] for 7 months for rehabilitation. -During that time he was admitted to hospital 04/28/17 for acute respiratory failure with hypoxia, PE, and UTI. -Hospitalized again in June 2017 for urosepsis. -In August 2017 he was discharged from [facility] to home but after falling 3 times within 12 hours he [facility] further [facility]. -Discharged 10/28/17 from [facility]. -Was on HomeHealth PT, OT, and Nursing. JACK DC'd from Home Health 12/15/17, and from PT 12/31/17. -He is now enrolled in outpatient PT at [facility] and just returned from a session. -He and his both report he has had significant improvement in the past month. -He is able to self transfer, he takes care of his own ADLs, showers himself. -His chronic pain is at baseline, and gabapentin helps the neuropathy. He takes 1000mg of Tylenol nightly for adequate pain control -[facility] for R-side "pinched nerve" to consider electro therapy. -They just returned from a trip to [place] for the 's high school reunion. -His is planning a 1-2 week trip January 30 and will hire temporary caregiving for him for a few hours a day while she is gone. -[place] her on [place] senior center's offerings, private caregivers, etc. Social History - Living Situation Living arrangement: At home Living Situation: With spouse/s.o. Support System: Patient is and lives with his 2nd . 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 He has one son living in [facility]. His has three adult children. Medications/Allergies - Medications Home Medications: Ambulatory Orders Medication Instructions Recorded Confirmed Aspirin [Aspir 81] 81 mg PO DAILY 08/03/15 01/06/18 Carvedilol 25 mg PO BID 08/04/15 01/06/18 Gabapentin [Neurontin] 600 mg PO TID #30 06/28/17 01/06/18 raNITIdine [Zantac] 150 mg PO BID #30 06/28/17 01/06/18 Acetaminophen 1,000 mg PO Q6H PRN MDD NTE 3000mg 12/02/17 01/06/18 in 24 hours Atorvastatin Calcium 40 mg PO DAILY 12/02/17 01/06/18 C,E,Zinc,Copper 11/Wumqb3v/Lut 1 cap PO DAILY 12/02/17 01/06/18 [Ocuvite Adult 50 Plus Softgel] Multivitamin [Multiple Vitamins] 1 tab PO DAILY 12/02/17 01/06/18 Acetaminophen 1,000 mg PO QPM PRN 01/06/18 01/06/18 - Allergies Allergies/Adverse Reactions: Allergies Allergy/AdvReac Type Severity Reaction Status Date / Time No Known Drug Allergies Allergy Verified 08/09/17 09:48 Review of Systems - Constitutional Constitutional: reports: Weakness (improving), Weight stable (292 lbs 2 onths ago at [facility]. Wants to lose weight). denies: Fatigue, Poor appetite - Ears, Nose & Throat Ears, Nose & Throat: reports: Hearing loss, Hearing aids (doesn't wear), Other ( chronic sinus/allergic rhinitis. Refused medications) - Cardiovascular Cardiovascular: reports: Other (h/o Sick sinus syndrome. Has a pacemaker.). denies: Chest pain, Exertional dyspnea, Orthopnea - Respiratory Respiratory: reports: Sputum production (refused medication). denies: Cough, Wheezing, SOB at rest, SOB with exertion - Gastrointestinal Gastrointestinal: denies: Constipation, Diarrhea - Genitourinary Genitourinary: denies: Dysuria, Frequency, Incontinence - Musculoskeletal Musculoskeletal: reports: Back pain (chronic s/p laminectomty/staphylcoccal infection of spine 15 years ago), Assistive devices (wheelchair) - Neurological Neurological: reports: Numbness (and tingling) - Hematologic/Lymphatic Hematologic/Lymphatic: reports: Blood clots (h/o DVT/pulmonary embolism) Physical Exam - Vital Signs Temperature: 96.4 F Pulse Rate: 72 O2 Saturation: 95 (room air) Blood Pressure: 130/80 - Physical Exam General Appearance: positive: No acute distress, Alert Eyes Bilateral: positive: EOMI, No lid inflammation, Conjunctivae nml, No scleral icterus ENT: positive: No signs of dehydration Neck: positive: No JVD, Trachea midline Cardiovascular: positive: Regular rate & rhythm, No murmur, No gallop Respiratory: positive: Breath sounds nml, Diminished throughout (body habitus) Skin: positive: No symptoms Extremities: positive: Pedal edema (1+) Neurologic/Psychiatric: positive: Oriented x3, Mood/affect nml Palliative Care - POLST Patient has POLST: Yes POLST Status: Selective Treatment, Full Code Pain: Pain unchanged, Comment (chronic back pain. He is following up with spinal cord specialist at [facility] on January 09 for R pinched nerve) Anorexia: None Constipation: No Performance Status: Able to perform own ADLs, takes shower independently, transfers self-from wheelchair. Is still wheelchair bound but transferring has improved. - Palliative Care Discussion: We updated his POLST and replaced the previous version signed in March 2017. He does want CPR but doesn't want intubation or being kept alive on long-term life support. I explained CPR and intubation go together. We specified on POLST that intubation is acceptable only for a limited time. He does not want on-going life support or "artificial breathing" for a sustained, prolonged period. His goal is to walk with his walker, and hopefully use his motorized scooter. He doesn't want to be so dependent on his . Both he and his think he has made very good progress with all the healthcare support and help he has received, and is still receiving. He sees his PCP regularly and also goes to the [facility]. He is steadily improving, and symptoms are under control/at baseline. They do not feel it is necessary to continue with Palliative Care oversight at this time. We agreed I would follow up by telephone in about 3 months, and if all is well, D/C from Palliative Care. They understand the referral is good for one year. 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 He has showed significant improvement in strengthening his lower legs over the past month with physical therapy, and is continuing with outpatient physical therapy. [facility] to alleviate "pinched nerve" of spine. He is also being followed closely by his PCP. It was agreed that oversight of palliative care is not currently needed and to put him on hold. Palliative Care will check in in 3 months and determine at that time whether to discharge from Palliative Care. Recommendations/Counseling Done: Urinary retention: Chronic, at baseline. He has self-catheterized ever since laminectomy/spinal cord infection 15 years ago. Chronic back pain s/p spinal stenosis: Controlled with Tylenol 1000 mg at bedtime, and occasionally as needed during the day. He has a 01/09/18 appointment at [facility] with spinal cord specialist regarding an electro- therapy for relief of pinched R-side nerve. Advanced care planning: New POLST signed: CRP and selected treatment. Intubation is acceptable only for a limited time. He does not want on-going life support or "artificial breathing" for a sustained, prolonged period. Both he and his think he has made very good progress with all the healthcare support and help he has received, and is still receiving. [facility] and is steadily improving. Symptoms are under control/at baseline. They don't feel Palliative Care oversight is necessary. We agreed I would follow up by telephone in about 3 months, and if all is well, would D/C from Palliative Care. They understand the referral is good for one year. Follow up by telephone in April. If stable, D/C from Palliative Care. Time Spent: 40 minutes were spent with more than 50% of the time spent on counseling, education, and coordination of care.
== END 2018-01-06 11:16 | disposition home or self-care (01) ==
LOC: PC 11:15
PROVIDERS: ATTEND Nurse Practitioner
DX: Z51.5 Encounter for palliative care (principal); R53.1 Weakness; R33.9 Retention of urine, unspecified; G89.29 Other chronic pain; M54.9 Dorsalgia, unspecified; G62.9 Polyneuropathy, unspecified; E66.01 Morbid (severe) obesity due to excess calories; S82.201S Unspecified fracture of shaft of right tibia, sequela; W19.XXXS Unspecified fall, sequela; Z99.3 Dependence on wheelchair; Z91.81 History of falling; Z86.711 Personal history of pulmonary embolism; Z87.440 Personal history of urinary (tract) infections; Z86.718 Personal history of other venous thrombosis and embolism; Z95.0 Presence of cardiac pacemaker; I25.2 Old myocardial infarction; Z87.01 Personal history of pneumonia (recurrent); Z79.82 Long term (current) use of aspirin
CPT/HCPCS: 99349

== ENCOUNTER 2018-11-20 08:00 | Outpatient (CLI) | payer OTHER ==
[2018-11-20 18:44] LABS: BASOPHILS # (AUTO) 0.1 10^3/uL (0.0-0.1); BASOPHILS % (AUTO) 0.6 %; EOSINOPHILS # (AUTO) 0.5 10^3/uL (0.0-0.7); EOSINOPHILS % (AUTO) 5.5 %; HGB - HEMOGLOBIN 15.3 g/dL (14.0-18.0); LYMPHOCYTES # (AUTO) 3.1 10^3/uL (1.5-3.5); MEAN CORPUSCULAR HGB CONC 32.1 g/dL (32.0-36.0); MEAN CORPUSCULAR VOLUME 90.3 fL (80.0-94.0); MEAN PLATELET VOLUME 8.7 fL (7.4-11.4); MONOCYTES # (AUTO) 0.8 10^3/uL (0.0-1.0); MONOCYTES % (AUTO) 8.1 %; NEUTROPHILS % (AUTO) 52.8 %; PLT - PLATELET COUNT 195 10^3/uL (130-450); RED BLOOD COUNT 5.27 10^6/uL (4.70-6.10); RED CELL DISTRIBUTION WIDTH 15.3 % (12.0-15.0); WHITE BLOOD COUNT 9.4 x10^3/uL (4.8-10.8)
== END 2018-11-20 23:59 | disposition home or self-care (01) ==
LOC: LAB.N 08:00
DX: L30.9 Dermatitis, unspecified (principal); Z79.52 Long term (current) use of systemic steroids
CPT/HCPCS: 36415; 81599; 85025; 86003

== ENCOUNTER 2019-04-03 14:23 | Outpatient (CLI) | payer MEDICARE, OTHER | END 2019-04-03 14:24 | disposition EMS.NT | LOC: EMS 14:23 | PROVIDERS: ATTEND Surgery | DX: R53.1 Weakness (principal) ==

== ENCOUNTER 2019-08-23 11:24 | Outpatient (CLI) | payer MEDICARE, OTHER | END 2019-08-23 11:25 | disposition critical access hospital (66) | LOC: EMS 11:24 | PROVIDERS: ATTEND Surgery | DX: S91.115A Laceration without foreign body of left lesser toe(s) without damage to nail, initial encounter (principal); W18.30XA Fall on same level, unspecified, initial encounter; Y92.002 Bathroom of unspecified non-institutional (private) residence as the place of occurrence of the external cause; Z99.3 Dependence on wheelchair | CPT/HCPCS: A0425; A0429 ==

== ENCOUNTER 2019-08-23 11:47 | Emergency (ER) | payer MEDICARE, OTHER ==
--- NOTE | 2019-08-23 14:05 | ED Physician Documentation ---
PD HPI LOWER EXT INJURY - Stated complaint Stated Complaint: GLF - Chief complaint Chief Complaint: Laceration - History obtained from History obtained from: Patient - History of Present Illness PD HPI LOW EXT INJURY LOCATION: Left, Toe (left little toe underside.) Type of injury: Blunt / blow (he says he was being helped up with assistance after he slumped to the ground and needed help. Getting up, he caught toe on edge of walker and got laceration to underside of little toe.) Where injury occurred: Home (lives home with his , and has home health manager.) Timing - onset: Today Timing - details: Abrupt onset Worsened by: Palpating Associated symptoms: Numbness (has chronic numbness in legs/feet from prior staph infection in his back after spine surgery.). No: Weakness Similar symptoms before: Has not had sx before Review of Systems Constitutional: denies: Fever, Chills, Myalgias Skin: reports: Laceration (s) Neurologic: reports: Focal weakness (chronic legs weak with prior spine surgery and post op infection.) PD PAST MEDICAL HISTORY - Past Medical History Cardiovascular: Hypertension, High cholesterol, Coronary artery disease, [place] Respiratory: None Endocrine/Autoimmune: None GI: GERD : Retention, Indwelling catheter HEENT: Chronic hearing loss, Dental implants Psych: None Musculoskeletal: Fatigue, Chronic back pain Derm: None - Past Surgical History Past Surgical History: Yes General: Colonoscopy, Other Ortho: Knee replacement, Other Cardiovascular: Coronary stent, Pacemaker, Angioplasty HEENT: Cataracts - Present Medications Home Medications: Ambulatory Orders Medication Instructions Recorded Confirmed Aspirin [Aspir 81] 81 mg PO DAILY 08/03/15 01/06/18 Carvedilol 25 mg PO BID 08/04/15 01/06/18 Gabapentin [Neurontin] 600 mg PO TID #30 06/28/17 01/06/18 raNITIdine [Zantac] 150 mg PO BID #30 06/28/17 01/06/18 Acetaminophen 1,000 mg PO Q6H PRN MDD NTE 3000mg 12/02/17 01/06/18 in 24 hours Atorvastatin Calcium 40 mg PO DAILY 12/02/17 01/06/18 C,E,Zinc,Copper 11/Mucso3j/Lut 1 cap PO DAILY 12/02/17 01/06/18 [Ocuvite Adult 50 Plus Softgel] Multivitamin [Multiple Vitamins] 1 tab PO DAILY 12/02/17 01/06/18 Acetaminophen 1,000 mg PO QPM PRN 01/06/18 01/06/18 - Allergies Allergies/Adverse Reactions: Allergies Allergy/AdvReac Type Severity Reaction Status Date / Time No Known Drug Allergies Allergy Verified 08/23/19 11:56 - Social History Does the pt smoke?: No Smoking Status: Never smoker Does the pt drink ETOH?: No Does the pt have substance abuse?: No - Immunizations Immunizations are current?: No - POLST Patient has POLST: Yes POLST Status: Full Code PD ED PE NORMAL - Vitals Vital signs reviewed: Yes - General General: Alert and oriented X 3, No acute distress, Well developed/nourished - Derm Derm: Normal color, Warm and dry - Extremities Extremities: Other (left little toe with laceration on flexion crease of mtp joint, to fatty tissue, buit not involving tendons. Symmetric sensation of that toe to others (diminished overall)) - Neuro Neuro: Alert and oriented X 3, No motor deficit, Normal speech Results - Vitals Vitals: Vital Signs - 24 hr 08/23/19 08/23/19 11:56 15:11 Temperature 36.9 C 36.5 C Heart Rate 67 64 Respiratory 15 18 Rate Blood Pressure 102/51 L 135/73 H O2 Saturation 94 96 Oxygen O2 Source Room air Procedures - Laceration (location) left little toe MTP flexion crease Length in cm: 1.5 Wound type: Linear, Into subcut fat, Clean Neurovascular status: Sensory intact (but diminished some comparably to other toes.), Motor intact, Vascular intact Tendon involvement: Tendon intact Anesthesia: Lidocaine 1% Wound Preparation: Irrigated copiously NS, Wound explored, To the base. No: FB identified Skin layer closure: Nylon, Running, Size #-0 - enter number (4), Sutures - enter # (7) Other: Patient tolerated well, No complications, Dressing applied Departure - Departure Disposition: 01 Home, Self Care Clinical Impression: Toe laceration Qualifiers: Encounter type: initial encounter Toe: lesser toe Damage to nail status: without damage Foreign body presence: without foreign body Laterality: left Qualified Code(s): S91.115A - Laceration without foreign body of left lesser toe(s) without damage to nail, initial encounter Condition: Stable Record reviewed to determine appropriate education?: Yes Instructions: ED Laceration Foot Follow-Up: Vanessa Krishnamurthy DO [Primary Care Provider] - Comments: It is okay to wash and shower. Clean off the wound twice a day with soap and water, or peroxide and water. Apply some antibiotic ointment to it to keep it moist. Also to watch for signs of infection such as purulence, redness or increasing pain. Return to your primary care or the ER at the specified time for suture removal. Suture removal 10 to 12 days. Discharge Date/Time: 08/23/19 15:06
[2019-08-23 15:12] VITALS: BP 135/73
== END 2019-08-23 15:06 | disposition home or self-care (01) ==
LOC: EDUNIT# → ED 11:47
DX: S91.115A Laceration without foreign body of left lesser toe(s) without damage to nail, initial encounter (principal); W26.8XXA Contact with other sharp object(s), not elsewhere classified, initial encounter; Y93.89 Activity, other specified; Y92.009 Unspecified place in unspecified non-institutional (private) residence as the place of occurrence of the external cause; R29.898 Other symptoms and signs involving the musculoskeletal system; I10 Essential (primary) hypertension; Z79.82 Long term (current) use of aspirin
CPT/HCPCS: 12001; 99283

== ENCOUNTER 2020-08-07 08:00 | Outpatient (CLI) | payer MEDICARE, OTHER ==
[2020-08-07 18:43] LABS: BILIRUBIN,URINE NEGATIVE (NEGATIVE); GLUCOSE, URINE (UA) NEGATIVE (NEGATIVE); KETONES,URINE (UA) NEGATIVE (NEGATIVE); LEUKOCYTE ESTERASE, URINE MODERATE (NEGATIVE); NITRITE,URINE POSITIVE (NEGATIVE); OCCULT BLOOD,URINE MODERATE (NEGATIVE); PROTEIN,URINE 100 mg/dL (NEGATIVE); UROBILINOGEN,URINE 0.2 (NORMAL) E.U./dL (NORMAL)
[2020-08-07 19:00] LABS: CLARITY,URINE CLOUDY (CLEAR)
[2020-08-07 19:01] LABS: BACTERIA,URINE Many /HPF (None Seen); RBC,URINE TNTC /HPF (0-5); SQUAMOUS EPITHELIAL CELL,UR NONE SEEN (<= Few)
== END 2020-08-07 23:59 | disposition home or self-care (01) ==
LOC: LAB.N 08:00
PROVIDERS: ATTEND Nurse Practitioner
DX: N39.0 Urinary tract infection, site not specified (principal)
CPT/HCPCS: 81001; 87086; 87181

== ENCOUNTER 2020-11-02 08:00 | Outpatient (CLI) | payer MEDICARE, OTHER ==
[2020-11-02 17:52] LABS: BASOPHILS % (AUTO) 0.5 %; EOSINOPHILS # (AUTO) 0.4 10^3/uL (0.0-0.7); EOSINOPHILS % (AUTO) 4.9 %; HCT - HEMATOCRIT 49.6 % (42.0-52.0); HGB - HEMOGLOBIN 15.1 g/dL (14.0-18.0); LYMPHOCYTES % (AUTO) 37.4 %; MEAN CORPUSCULAR HEMOGLOBIN 28.7 pg (27.0-31.0); MEAN CORPUSCULAR HGB CONC 30.4 g/dL (32.0-36.0); MEAN CORPUSCULAR VOLUME 94.3 fL (80.0-94.0); MEAN PLATELET VOLUME 10.6 fL (7.4-11.4); MONOCYTES # (AUTO) 0.6 10^3/uL (0.0-1.0); MONOCYTES % (AUTO) 7.9 %; NEUTROPHILS % (AUTO) 49.2 %; PLT - PLATELET COUNT 192 10^3/uL (130-450); RED BLOOD COUNT 5.26 10^6/uL (4.70-6.10); RED CELL DISTRIBUTION WIDTH 15.7 % (12.0-15.0); WHITE BLOOD COUNT 8.1 x10^3/uL (4.8-10.8)
[2020-11-02 19:16] LABS: ALBUMIN 3.7 g/dL (3.2-5.5); ALBUMIN/GLOBULIN RATIO 1.1 (1.0-2.2); ALKALINE PHOSPHATASE 71 IU/L (42-121); ALT ALANINE AMINOTRANSFERASE 26 IU/L (10-60); AST ASPARTATE AMINOTRANSFERASE 28 IU/L (10-42); BILIRUBIN,TOTAL 0.8 mg/dL (0.2-1.0); BUN - BLOOD UREA NITROGEN 24 mg/dL (6-20); CARBON DIOXIDE - CO2 29 mmol/L (21-32); CHLORIDE 103 mmol/L (101-111); CHOL/HDL RATIO 4.2 (<5.0); CHOLESTEROL 146 mg/dL; CREATININE 0.9 mg/dL (0.6-1.2); GFR - MDRD 81 (>89); GLUCOSE 100 mg/dL (70-100); HDL CHOLESTEROL 35 mg/dL; LDL CHOLESTEROL,CALCULATED 77 mg/dL; LDL/HDL RATIO 2.2 (<3.6); POTASSIUM 4.4 mmol/L (3.5-5.0); SODIUM 140 mmol/L (135-145); TOTAL PROTEIN 7.1 g/dL (6.7-8.2); TRIGLYCERIDES 169 mg/dL; VLDL CHOLESTEROL 34 mg/dL
[2020-11-02 19:21] LABS: THYROID STIMULATING HORMONE 1.88 uIU/mL (0.34-5.60)
[2020-11-02 20:18] LABS: ESTIMATED AVERAGE GLUCOSE 128 mg/dL (70-100); HEMOGLOBIN A1c% 6.1 % (4.27-6.07)
== END 2020-11-02 23:59 | disposition home or self-care (01) ==
LOC: LAB.WCP 08:00
PROVIDERS: ATTEND Family Medicine
DX: E11.9 Type 2 diabetes mellitus without complications (principal); E78.5 Hyperlipidemia, unspecified; F32.9 Major depressive disorder, single episode, unspecified; I25.10 Atherosclerotic heart disease of native coronary artery without angina pectoris
CPT/HCPCS: 36415; 80053; 80061; 82043; 82570; 83036; 83721; 84443; 85025

== ENCOUNTER 2020-11-09 08:00 | Outpatient (CLI) | payer MEDICARE, OTHER ==
[2020-11-09 18:35] LABS: CREATININE,URINE 225.4 mg/dL; MICROALBUMIN,URINE 0.9 mg/dL (0-300.0)
== END 2020-11-09 23:59 | disposition home or self-care (01) ==
LOC: LAB.WCP 08:00
PROVIDERS: ATTEND Family Medicine
DX: E11.9 Type 2 diabetes mellitus without complications (principal)
CPT/HCPCS: 82043; 82570

== ENCOUNTER 2021-09-20 08:00 | Outpatient (CLI) | payer MEDICARE, OTHER ==
[2021-09-20 17:56] LABS: BASOPHILS # (AUTO) 0.1 10^3/uL (0.0-0.1); BASOPHILS % (AUTO) 0.7 %; EOSINOPHILS # (AUTO) 0.5 10^3/uL (0.0-0.7); EOSINOPHILS % (AUTO) 5.9 %; HCT - HEMATOCRIT 51.1 % (42.0-52.0); HGB - HEMOGLOBIN 15.9 g/dL (14.0-18.0); LYMPHOCYTES # (AUTO) 3.5 10^3/uL (1.5-3.5); LYMPHOCYTES % (AUTO) 37.5 %; MEAN CORPUSCULAR HEMOGLOBIN 29.4 pg (27.0-31.0); MEAN CORPUSCULAR HGB CONC 31.1 g/dL (32.0-36.0); MEAN CORPUSCULAR VOLUME 94.6 fL (80.0-94.0); MEAN PLATELET VOLUME 10.7 fL (7.4-11.4); MONOCYTES # (AUTO) 0.6 10^3/uL (0.0-1.0); MONOCYTES % (AUTO) 6.4 %; NEUTROPHILS # (AUTO) 4.5 10^3/uL (1.5-6.6); NEUTROPHILS % (AUTO) 49.2 %; PLT - PLATELET COUNT 213 10^3/uL (130-450); RED CELL DISTRIBUTION WIDTH 16.1 % (12.0-15.0); WHITE BLOOD COUNT 9.2 x10^3/uL (4.8-10.8)
[2021-09-20 18:08] LABS: ALBUMIN 3.7 g/dL (3.2-5.5); ALBUMIN/GLOBULIN RATIO 1.2 (1.0-2.2); ALKALINE PHOSPHATASE 76 IU/L (42-121); ALT ALANINE AMINOTRANSFERASE 25 IU/L (10-60); AST ASPARTATE AMINOTRANSFERASE 28 IU/L (10-42); BILIRUBIN,TOTAL 0.7 mg/dL (0.2-1.0); BUN - BLOOD UREA NITROGEN 22 mg/dL (6-20); CALCIUM 8.7 mg/dL (8.5-10.3); CARBON DIOXIDE - CO2 28 mmol/L (21-32); CHLORIDE 100 mmol/L (101-111); CHOL/HDL RATIO 4.5 (<5.0); CHOLESTEROL 152 mg/dL; CREATININE 0.8 mg/dL (0.6-1.2); GFR - MDRD 93 (>89); GLUCOSE 92 mg/dL (70-100); HDL CHOLESTEROL 34 mg/dL; LDL CHOLESTEROL,CALCULATED 84 mg/dL; LDL/HDL RATIO 2.5 (<3.6); POTASSIUM 4.4 mmol/L (3.5-5.0); SODIUM 139 mmol/L (135-145); TOTAL PROTEIN 6.9 g/dL (6.7-8.2); TRIGLYCERIDES 170 mg/dL; VLDL CHOLESTEROL 34 mg/dL
[2021-09-20 18:17] LABS: THYROID STIMULATING HORMONE 2.6 uIU/mL (0.34-5.60)
[2021-09-20 19:34] LABS: ESTIMATED AVERAGE GLUCOSE 137 mg/dL (70-100); HEMOGLOBIN A1c% 6.4 % (4.27-6.07)
== END 2021-09-20 23:59 | disposition home or self-care (01) ==
LOC: LAB.WCP 08:00
PROVIDERS: ATTEND Family Medicine
DX: E11.9 Type 2 diabetes mellitus without complications (principal); R60.0 Localized edema; E66.01 Morbid (severe) obesity due to excess calories; E78.5 Hyperlipidemia, unspecified; I25.10 Atherosclerotic heart disease of native coronary artery without angina pectoris; I10 Essential (primary) hypertension
CPT/HCPCS: 36415; 80053; 80061; 83036; 83721; 84443; 85025

== ENCOUNTER 2021-10-01 14:55 | Outpatient (CLI) | payer MEDICARE, OTHER ==
--- NOTE | 2021-10-01 16:25 | CT Report ---
PROCEDURE: CHEST WO INDICATIONS: CHRONIC COUGH TECHNIQUE: Noncontrast 1mm axial images were acquired from the pulmonary apices to the posterior costophrenic an gles. Axial 5 mm soft tissue kernel reconstructions were performed as well as 8 mm axial MIP and cor onal and sagittal 5 mm reformations. For radiation dose reduction, the following was used: automate d exposure control, adjustment of mA and/or kV according to patient size. COMPARISON: April 28, 2017. FINDINGS: Images are mildly degraded by respiratory motion. Thyroid: Homogeneous. Vasculature: Normal size and contour. Heart: No cardiomegaly or pericardial effusion. Coronary artery calcification. Mediastinum/yimi: No pathologically enlarged lymph nodes by size criteria. Small to moderate hiatal h ernia. Lung/pleura: No consolidation, pleural effusion, or pneumothorax. No suspicious pulmonary nodule or m ass. Tracheobronchial tree: Patent. Upper abdomen: No acute abnormality. Bones: No significant abnormality. Multifocal degenerative change. 1.5 x 1 cm sclerotic focus in the anterior aspect of T7, which may reflect a bone island. Chest wall: No significant abnormality. The left cardiac device is seen. Abandoned right cardiac lead s. IMPRESSION: 1.No significant abnormality. Consider annual low-dose CT screening as clinically warranted. Reviewed by: Fernando Roy MD on 10/01/2021 4:24 PM PST Approved by: Fernando Roy MD on 10/01/2021 4:24 PM PST Station ID: [id number]
== END 2021-10-01 14:56 | disposition home or self-care (01) ==
LOC: DI 14:55
PROVIDERS: ATTEND Family Medicine
DX: R05.3 Chronic cough (principal)

== ENCOUNTER 2021-12-18 23:51 | Outpatient (CLI) | payer MEDICARE, OTHER | END 2021-12-18 23:52 | disposition EMS.NT | LOC: EMS 23:51 | DX: R53.1 Weakness (principal) ==

== ENCOUNTER 2021-12-19 09:51 | Outpatient (CLI) | payer MEDICARE, OTHER | END 2021-12-19 09:52 | disposition EMS.NT | LOC: EMS 09:51 | DX: R53.1 Weakness (principal) ==

== ENCOUNTER 2022-06-09 09:35 | Outpatient (CLI) | payer MEDICARE, OTHER | END 2022-06-09 09:36 | disposition EMS.NT | LOC: EMS 09:35 | DX: Z03.89 Encounter for observation for other suspected diseases and conditions ruled out (principal) ==

== ENCOUNTER 2022-06-11 11:55 | Outpatient (CLI) | payer MEDICARE, OTHER | END 2022-06-11 11:56 | disposition critical access hospital (66) | LOC: EMS 11:55 | DX: M54.50 Low back pain, unspecified (principal); W05.0XXA Fall from non-moving wheelchair, initial encounter; Y92.009 Unspecified place in unspecified non-institutional (private) residence as the place of occurrence of the external cause | CPT/HCPCS: A0425; A0429 ==

== ENCOUNTER 2022-06-11 12:19 | Emergency (ER) | payer MEDICARE, OTHER ==
[2022-06-11] MEDS ORDERED: oxyCODONE 5 MG TABLET PO STA (12:28)
--- NOTE | 2022-06-11 12:37 | ED Physician Documentation ---
History of Present Illness - Stated complaint Stated Complaint: GLF - Chief complaint Chief Complaint: Back Pain - History obtained from History obtained from: Patient - History of Present Illness Pain level max: 7 Pain level now: 7 - Additonal information Additional information: Patient is an 81-year-old male who presents to the emergency department after a ground-level fall at home yesterday. He states he is having low back pain since the fall. Has a history of a laminectomy in the past. He saw his chiropractor yesterday but states that the pain has not improved. Worse with movement, better with rest. No numbness or tingling. No loss of bowel or bladder control. No IV drug use. No fevers. He is on Eliquis. He does not believe that he struck his head. Review of Systems Constitutional: denies: Fever, Chills : denies: Dysuria Skin: denies: Rash Musculoskeletal: denies: Neck pain Neurologic: denies: Focal weakness, Numbness, Confused, Altered mental status, Headache PD PAST MEDICAL HISTORY - Past Medical History Cardiovascular: Hypertension, High cholesterol, Coronary artery disease, [place] Respiratory: None Endocrine/Autoimmune: None GI: GERD : Retention, Indwelling catheter HEENT: Chronic hearing loss, Dental implants Psych: None Musculoskeletal: Fatigue, Chronic back pain Derm: None - Past Surgical History Past Surgical History: Yes General: Colonoscopy, Other Ortho: Knee replacement, Other Cardiovascular: Coronary stent, Pacemaker, Angioplasty HEENT: Cataracts - Present Medications Home Medications: Ambulatory Orders Medication Instructions Recorded Confirmed Aspirin [Aspir 81] 81 mg PO DAILY 08/03/15 01/06/18 Carvedilol 25 mg PO BID 08/04/15 01/06/18 Gabapentin [Neurontin] 600 mg PO TID #30 06/28/17 01/06/18 raNITIdine [Zantac] 150 mg PO BID #30 06/28/17 01/06/18 Acetaminophen 1,000 mg PO Q6H PRN MDD NTE 3000mg 12/02/17 01/06/18 in 24 hours Atorvastatin Calcium 40 mg PO DAILY 12/02/17 01/06/18 C,E,Zinc,Copper 11/Mnvrp3h/Lut 1 cap PO DAILY 12/02/17 01/06/18 [Ocuvite Adult 50 Plus Softgel] Multivitamin [Multiple Vitamins] 1 tab PO DAILY 12/02/17 01/06/18 Acetaminophen 1,000 mg PO QPM PRN 01/06/18 01/06/18 Oxycodone HCl [Roxicodone] 5 mg PO Q6H PRN #14 tablet 06/11/22 - Allergies Allergies/Adverse Reactions: Allergies Allergy/AdvReac Type Severity Reaction Status Date / Time No Known Drug Allergies Allergy Verified 06/11/22 12:25 - Social History Does the pt smoke?: No Smoking Status: Never smoker Does the pt drink ETOH?: No Does the pt have substance abuse?: No - Immunizations Immunizations are current?: No - POLST Patient has POLST: Yes POLST Status: Full Code PD ED PE NORMAL - Vitals Vital signs reviewed: Yes - General General: Alert and oriented X 3, No acute distress - HEENT HEENT: PERRL, Moist mucous membranes - Neck Neck: Supple, no meningeal sign - Cardiac Cardiac: RRR, Strong equal pulses - Respiratory Respiratory: No respiratory distress, Clear bilaterally - Abdomen Abdomen: Soft, Non tender, Non distended - Back Back: Other (Tender to palpation low lumbar, approximately L5-S1 area. Mild paraspinal tenderness. No swelling. No bruising. No step-off or deformity) - Derm Derm: Warm and dry - Extremities Extremities: No deformity - Neuro Neuro: Alert and oriented X 3, refractory manager 2-12 intact, No motor deficit, No sensory deficit, Other (Normal bilateral lower extremity patellar and ankle jerk reflexes. Normal great toe extension bilaterally. no saddle anesthesia) - Psych Psych: Normal mood, Normal affect Results - Vitals Vitals: Vital Signs - 24 hr 06/11/22 06/11/22 06/11/22 12:25 12:28 14:28 Temperature 37.7 C 37.7 C Heart Rate 81 81 64 Respiratory 18 18 16 Rate Blood Pressure 102/62 102/62 113/77 O2 Saturation 96 96 98 Oxygen O2 Source Room air - Rads (name of study) CT head Radiology: Final report received, EMP read contemporaneously, See rad report (No acute abnormality) Lumbar spine CT Radiology: Final report received, EMP read contemporaneously, See rad report PD MEDICAL DECISION MAKING - ED course Complexity details: reviewed results, re-evaluated patient, considered differential, d/w patient, d/w family ED course: No acute findings on head CT or lumbar spine CT. Pain greatly improved with pain medication here. Will place on pain medication for home and have him follow-up with his doctor. He has a wheelchair accessible home and does use a wheelchair much of the time. No evidence of cauda equina, epidural abscess or fracture. Patient is on blood thinners, no evidence of intracranial hemorrhage. Patient and family counseled regarding signs and symptoms for which I believe and urgent re-evaluation would be necessary. Patient with good understanding of and agreement to plan and is comfortable going home at this time This document was made in part using voice recognition software. While efforts are made to proofread this document, sound alike and grammatical errors may occur. Departure - Departure Disposition: Home, Self Care Clinical Impression: Back spasm Back strain Qualifiers: Encounter type: initial encounter Qualified Code(s): S39.012A - Strain of muscle, fascia and tendon of lower back, initial encounter Condition: Good Instructions: ED Sprain Strain Lumbar Follow-Up: Vanessa Krishnamurthy DO [Primary Care Provider] - Within 1 week Prescriptions: Oxycodone HCl [Roxicodone] 5 mg PO Q6H PRN #14 tablet PRN Reason: Pain Comments: Please follow-up with your doctor for further care. Your head CT and lumbar spine CT do not show any acute abnormalities today. Your prescriptions were sent to [facility] in [place] I am prescribing a short course of narcotic pain medication for you. These are potentially dangerous and addictive medications that should be used carefully. These medications may constipate you. Take an qpkk-qqg-[id number] stool softener (docusate) twice daily with plenty of water while taking these medications. If you go 24 hours without a bowel movement, take [id number] miralax, per package instructions. Do not drink or drive while taking these medications. If you received narcotic or sedating medications while in the emergency d epartment, do not drive for 24 hours. Store this medication in a safe, secure place and out of reach of children. It is a violation of federal law to give or sell this medication to another person or to use in a manner other than prescribed. The ED will not refill narcotic prescriptions, including prescriptions lost or stolen. To dispose of unwanted medications: 1. [facility] at [address] in [place] has a medication drop box. They accept prescription medications (in pill form) Friday through Friday 9:00 a.m. to 5:00 p.m. 2. The [facility] [employer] accepts prescription medications (in pill form only) for disposal year round. Call for more information. 3. Contact the [facility] for the next [facility] sponsored prescription drug collection event. , [phone], or [phone]; Discharge Date/Time: 06/11/22 15:32
[2022-06-11 14:37] VITALS: BP 113/77
--- NOTE | 2022-06-11 14:44 | CT Report ---
PROCEDURE: HEAD WO INDICATIONS: fall, head injury pt on eliquis TECHNIQUE: Noncontrast 4.5 mm thick angled axial sections acquired from the foramen magnum to the vertex. For r adiation dose reduction, the following was used: automated exposure control, adjustment of mA and/or kV according to patient size. COMPARISON: None. FINDINGS: Image quality: Excellent. CSF spaces: Basal cisterns are patent. No extra-axial fluid collections. Ventricles are normal in size and shape. Brain: No midline shift. No intracranial masses or hemorrhage. Zaragoza-white matter interface is norm al. Skull and face: Calvarium and visualized facial bones are intact, without suspicious lesions. Sinuses: Visualized sinuses and mastoids are clear. IMPRESSION: No acute intracranial finding. Reviewed by: Luis Carlos Cullen MD on 06/11/2022 2:43 PM PDT Approved by: Luis Carlos Cullen MD on 06/11/2022 2:43 PM PDT Station ID: [id number]
--- NOTE | 2022-06-11 15:06 | CT Report ---
PROCEDURE: LUMBAR SPINE WO INDICATIONS: fall, back pain, h/o laminectomy TECHNIQUE: Noncontrast 3 mm thick sections acquired from the T12 level to the sacrum. Sagittal and coronal refo rmats were constructed. For radiation dose reduction, the following was used: automated exposure co ntrol, adjustment of mA and/or kV according to patient size. COMPARISON: None. FINDINGS: Exaggerated lumbar lordosis with otherwise normal alignment. Vertebral body heights maintained. No ev idence of lumbar spine fracture. 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 IMPRESSION: Moderate to severe degenerative changes without acute finding. Reviewed by: Luis Carlos Cullen MD on 06/11/2022 3:05 PM PDT Approved by: Luis Carlos Cullen MD on 06/11/2022 3:05 PM PDT Station ID: [id number]
== END 2022-06-11 15:32 | disposition home or self-care (01) ==
LOC: EDSEX → EDUNIT# → ED 12:19
DX: S39.012A Strain of muscle, fascia and tendon of lower back, initial encounter (principal); M62.830 Muscle spasm of back; W05.0XXA Fall from non-moving wheelchair, initial encounter; Y92.009 Unspecified place in unspecified non-institutional (private) residence as the place of occurrence of the external cause; I10 Essential (primary) hypertension; I25.10 Atherosclerotic heart disease of native coronary artery without angina pectoris; Z79.01 Long term (current) use of anticoagulants; Z79.82 Long term (current) use of aspirin
CPT/HCPCS: 70450; 72131; 99283; 99284; A9270

== ENCOUNTER 2022-09-02 19:39 | Outpatient (CLI) | payer MEDICARE, OTHER | END 2022-09-02 19:40 | disposition EMS.NT | LOC: EMS 19:39 | DX: Z03.89 Encounter for observation for other suspected diseases and conditions ruled out (principal) ==

== ENCOUNTER 2022-09-03 12:15 | Outpatient (CLI) | payer MEDICARE, OTHER | END 2022-09-03 12:16 | disposition critical access hospital (66) | LOC: EMS 12:15 | DX: R53.1 Weakness (principal) | CPT/HCPCS: A0425; A0429 ==

== ENCOUNTER 2022-09-03 12:39 | Emergency (ER) | payer MEDICARE, OTHER ==
[2022-09-03 13:22] LABS: BASOPHILS % (AUTO) 0.3 %; EOSINOPHILS # (AUTO) 0.4 10^3/uL (0.0-0.7); EOSINOPHILS % (AUTO) 2.6 %; HCT - HEMATOCRIT 41.7 % (42.0-52.0); HGB - HEMOGLOBIN 12.3 g/dL (14.0-18.0); LYMPHOCYTES # (AUTO) 2.9 10^3/uL (1.5-3.5); LYMPHOCYTES % (AUTO) 19.4 %; MEAN CORPUSCULAR HEMOGLOBIN 24.2 pg (27.0-31.0); MEAN CORPUSCULAR HGB CONC 29.5 g/dL (32.0-36.0); MEAN CORPUSCULAR VOLUME 82.1 fL (80.0-94.0); MEAN PLATELET VOLUME 9.8 fL (7.4-11.4); MONOCYTES # (AUTO) 1.1 10^3/uL (0.0-1.0); MONOCYTES % (AUTO) 7.6 %; NEUTROPHILS # (AUTO) 10.3 10^3/uL (1.5-6.6); NEUTROPHILS % (AUTO) 69.6 %; PLT - PLATELET COUNT 283 10^3/uL (130-450); RED BLOOD COUNT 5.08 10^6/uL (4.70-6.10); RED CELL DISTRIBUTION WIDTH 19.3 % (12.0-15.0); WHITE BLOOD COUNT 14.8 x10^3/uL (4.8-10.8)
--- NOTE | 2022-09-03 13:30 | XRAY Report ---
PROCEDURE: Chest 1 View X-Ray INDICATIONS: weak TECHNIQUE: One view of the chest was acquired. COMPARISON: 06/25/2017. FINDINGS: Surgical changes and devices: Left chest wall cardiac pacer. Bilateral chest wall abandoned cardiac leads are stable Lungs and pleura: No pleural effusions or pneumothorax. Lungs are clear. Mediastinum: Mediastinal contours appear normal. Heart size is normal. Bones and chest wall: No suspicious bony lesions. Overlying soft tissues appear unremarkable. IMPRESSION: No acute cardiopulmonary disease process. Reviewed by: Atiya Duke MD, PhD on 09/03/2022 1:28 PM PST Approved by: Atiya Duke MD, PhD on 09/03/2022 1:28 PM [facility] Station ID: [id number]
[2022-09-03 13:38] LABS: ALBUMIN 3.1 g/dL (3.2-5.5); ALBUMIN/GLOBULIN RATIO 0.8 (1.0-2.2); BILIRUBIN,TOTAL 0.7 mg/dL (0.2-1.0); CALCIUM 8.5 mg/dL (8.5-10.3); CREATININE 1.1 mg/dL (0.6-1.2); MAGNESIUM 2.3 mg/dL (1.7-2.8); POTASSIUM 4.4 mmol/L (3.5-5.0); TOTAL PROTEIN 6.9 g/dL (6.7-8.2)
--- NOTE | 2022-09-03 15:04 | ED Physician Documentation ---
History of Present Illness - Stated complaint Stated Complaint: WEAKNESS - Chief complaint Chief Complaint: Neuro - History obtained from History obtained from: Patient, Family (Patient's ) - Additonal information Additional information: Patient is an 81-year-old With a history of PE on Eliquis, CHF presenting for evaluation of worsening weakness. Patient reports being nonambulatory for years. [facility] weeks at a re[facility] hospital. He reports that the last week he was there there was an issue with his insurance and so that he did not receive PT or OT. He returned home on August 23. 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 I did speak with his and she reports that she initially was able to help him but due to his size it has become more difficult for her to and she is not able to assist him. They spoke to his primary care doctor today and were trying to get there for an appointment but he was not able to transition himself from the wheelchair to the car like he is normally able to and so they called 911. Patient denies hitting his head, chest pain, difficulty breathing, increased leg swelling. He is taking Lasix. He is compliant with his home medications. He has had a Hull catheter in place since his [facility] and denies that it has been cloudy or discolored with urine. He has not had fevers.The reports that PT and OT and home health have seen him at home but they have not initiated their treatments yet. Review of Systems Constitutional: denies: Fever Nose: denies: Congestion Cardiac: denies: Chest pain / pressure Respiratory: denies: Dyspnea GI: denies: Abdominal Pain : denies: Dysuria Musculoskeletal: reports: Extremity swelling Neurologic: reports: Generalized weakness. denies: Headache PD PAST MEDICAL HISTORY - Past Medical History Cardiovascular: Hypertension, High cholesterol, Coronary artery disease, [place] Respiratory: None Endocrine/Autoimmune: None GI: GERD : Retention, Indwelling catheter HEENT: Chronic hearing loss, Dental implants Psych: None Musculoskeletal: Fatigue, Chronic back pain Derm: None - Past Surgical History Past Surgical History: Yes General: Colonoscopy, Other Ortho: Knee replacement, Other Cardiovascular: Coronary stent, Pacemaker, Angioplasty HEENT: Cataracts - Present Medications Home Medications: Ambulatory Orders Medication Instructions Recorded Confirmed Aspirin [Aspir 81] 81 mg PO DAILY 08/03/15 01/06/18 Carvedilol 25 mg PO BID 08/04/15 01/06/18 Gabapentin [Neurontin] 600 mg PO TID #30 06/28/17 01/06/18 raNITIdine [Zantac] 150 mg PO BID #30 06/28/17 01/06/18 Acetaminophen 1,000 mg PO Q6H PRN MDD NTE 3000mg 12/02/17 01/06/18 in 24 hours Atorvastatin Calcium 40 mg PO DAILY 12/02/17 01/06/18 C,E,Zinc,Copper 11/Ejceq0n/Lut 1 cap PO DAILY 12/02/17 01/06/18 [Ocuvite Adult 50 Plus Softgel] Multivitamin [Multiple Vitamins] 1 tab PO DAILY 12/02/17 01/06/18 Acetaminophen 1,000 mg PO QPM PRN 01/06/18 01/06/18 Oxycodone HCl [Roxicodone] 5 mg PO Q6H PRN #14 tablet 06/11/22 - Allergies Allergies/Adverse Reactions: Allergies Allergy/AdvReac Type Severity Reaction Status Date / Time No Known Drug Allergies Allergy Verified 06/11/22 12:25 - Social History Does the pt smoke?: No Smoking Status: Never smoker Does the pt drink ETOH?: No Does the pt have substance abuse?: No - Immunizations Immunizations are current?: No - POLST Patient has POLST: Yes POLST Status: Full Code PD ED PE NORMAL - General General: Alert and oriented X 3, No acute distress, Well developed/nourished - HEENT HEENT: Atraumatic - Neck Neck: Supple, no meningeal sign - Cardiac Cardiac: RRR, No murmur - Respiratory Respiratory: No respiratory distress, Clear bilaterally - Abdomen Abdomen: Soft, Non tender, Non distended - Derm Derm: Warm and dry - Extremities Extremities: No calf tenderness / cord, Other (Edema to lower extremities;Able to raise both legs off the bed) - Neuro Neuro: Alert and oriented X 3, Normal speech Results - Vitals Vitals: Vital Signs - 24 hr 09/03/22 09/03/22 09/03/22 12:49 12:54 14:54 Temperature 36.8 C 36.8 C Heart Rate 70 70 68 Respiratory 18 18 16 Rate Blood Pressure 102/67 102/67 100/70 O2 Saturation 99 99 98 If not protocol : Oxygen Flow, liters/minute 09/03/22 09/03/22 09/03/22 16:00 18:00 20:00 Temperature 36.5 C Heart Rate 83 67 68 Respiratory 18 22 24 Rate Blood Pressure 135/90 H 168/90 H 154/76 H O2 Saturation 99 96 92 If not protocol : Oxygen Flow, liters/minute 09/03/22 09/04/22 09/04/22 22:00 00:00 02:00 Temperature 36.6 C 36.2 C L Heart Rate 83 70 67 Respiratory 16 18 14 Rate Blood Pressure 154/60 H 131/67 H 119/58 L O2 Saturation 92 92 96 If not protocol 2 : Oxygen Flow, liters/minute Oxygen O2 Source Nasal cannula - EKG (time done) 1307 Rate: Rate (enter#) (70) Rhythm: Other (Ventricular paced rhythm) Ischemia: No: ST elevation c/w ischemia - Labs Labs: Laboratory Tests 09/03/22 09/03/22 09/03/22 13:16 13:16 13:16 WBC 14.8 H RBC 5.08 Hgb 12.3 L Hct 41.7 L MCV 82.1 MCH 24.2 L MCHC 29.5 L RDW 19.3 H Plt Count 283 MPV 9.8 Neut # (Auto) 10.3 H Lymph # (Auto) 2.9 [place] # (Auto) 1.1 H Eos # (Auto) 0.4 Baso # (Auto) 0.0 Absolute Nucleated RBC 0.00 Nucleated RBC % 0.0 Sodium 138 Potassium 4.4 Chloride 101 Carbon Dioxide 26 Anion Gap 11.0 BUN 29 H Creatinine 1.1 Estimated GFR (MDRD) 64 L Glucose 128 H Calcium 8.5 Magnesium 2.3 Total Bilirubin 0.7 AST 27 ALT 26 Alkaline Phosphatase 95 B-Natriuretic Peptide 435 H Total Protein 6.9 Albumin 3.1 L Globulin 3.8 Albumin/Globulin Ratio 0.8 L Lipase 33 09/04/22 09/04/22 05:36 05:36 WBC 13.2 H RBC 4.84 Hgb 11.9 L Hct 39.3 L MCV 81.2 MCH 24.6 L MCHC 30.3 L RDW 19.1 H Plt Count 272 MPV 9.3 Neut # (Auto) 8.4 H Lymph # (Auto) 3.2 [place] # (Auto) 1.1 H Eos # (Auto) 0.5 Baso # (Auto) 0.0 Absolute Nucleated RBC 0.00 Nucleated RBC % 0.0 Sodium 139 Potassium 3.8 Chloride 102 Carbon Dioxide 28 Anion Gap 9.0 BUN 25 H Creatinine 0.9 Estimated GFR (MDRD) 81 L Glucose 110 H Calcium 8.3 L Magnesium Total Bilirubin AST ALT Alkaline Phosphatase B-Natriuretic Peptide Total Protein Albumin Globulin Albumin/Globulin Ratio Lipase PD Medical Decision Making - ED course Complexity details: reviewed results, re-evaluated patient, d/w patient, d/w family ED course: Patient is an 81-year-old presenting for evaluation of generalized weakness. He has been nonambulatory for years. He recently had a stay at a rehab facility but unfortunately reports he did not receive PT or OT in the last week he was there and became more deconditioned. This is a state that he returned home that is been since at least August 23. 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 He denies symptoms of a urinary tract infection. He does have a chronic indwelling catheter in which has clear appearing urine.He denies chest pain or difficulty breathing. His labs were reviewed. He does have a mild leukocytosis. His chest x-ray does not suggest pneumonia nor does he clinically have pneumonia symptoms.At this time I do not have a clear indication for admission but patient is not able to return home. I have placed a social work consult.I have ordered his home medications.Patient signed out at shift change. Departure - Departure Clinical Impression: Physical deconditioning Condition: Stable
[2022-09-03] MEDS ORDERED: FUROSEMIDE 20 MG TABLET PO STA (16:49)
[2022-09-03] MEDS ORDERED: ONDANSETRON 4 MG/2 ML VIAL IVP PRN (16:52)
[2022-09-03] MEDS: APIXABAN 5 MG TABLET PO SCH (20:52)
[2022-09-03] MEDS: carvediloL 12.5 MG TABLET PO SCH (20:52)
[2022-09-03] MEDS: GABAPENTIN 100 MG CAPSULE PO SCH (22:06)
[2022-09-03] MEDS: ACETAMINOPHEN 500 MG TABLET PO PRN (23:58)
[2022-09-04 05:45] LABS: BASOPHILS % (AUTO) 0.2 %; EOSINOPHILS # (AUTO) 0.5 10^3/uL (0.0-0.7); EOSINOPHILS % (AUTO) 3.6 %; HCT - HEMATOCRIT 39.3 % (42.0-52.0); HGB - HEMOGLOBIN 11.9 g/dL (14.0-18.0); LYMPHOCYTES # (AUTO) 3.2 10^3/uL (1.5-3.5); LYMPHOCYTES % (AUTO) 24.3 %; MEAN CORPUSCULAR HEMOGLOBIN 24.6 pg (27.0-31.0); MEAN CORPUSCULAR HGB CONC 30.3 g/dL (32.0-36.0); MEAN CORPUSCULAR VOLUME 81.2 fL (80.0-94.0); MEAN PLATELET VOLUME 9.3 fL (7.4-11.4); MONOCYTES # (AUTO) 1.1 10^3/uL (0.0-1.0); MONOCYTES % (AUTO) 8.1 %; NEUTROPHILS # (AUTO) 8.4 10^3/uL (1.5-6.6); NEUTROPHILS % (AUTO) 63.3 %; PLT - PLATELET COUNT 272 10^3/uL (130-450); RED BLOOD COUNT 4.84 10^6/uL (4.70-6.10); RED CELL DISTRIBUTION WIDTH 19.1 % (12.0-15.0); WHITE BLOOD COUNT 13.2 x10^3/uL (4.8-10.8)
[2022-09-04 05:56] LABS: CALCIUM 8.3 mg/dL (8.5-10.3); CREATININE 0.9 mg/dL (0.6-1.2); POTASSIUM 3.8 mmol/L (3.5-5.0)
[2022-09-04] MEDS: GABAPENTIN 100 MG CAPSULE PO SCH ×3 (06:19→22:52)
[2022-09-04] MEDS: PANTOPRAZOLE 40 MG TABLET PO SCH (06:40)
[2022-09-04] MEDS: ATORVASTATIN 40 MG TABLET PO SCH (10:10)
[2022-09-04] MEDS: ASPIRIN CHEW 81 MG TABLET PO SCH (10:10)
[2022-09-04] MEDS: carvediloL 12.5 MG TABLET PO SCH ×2 (10:10→21:08)
[2022-09-04] MEDS: SPIRONOLACTONE 25 MG TABLET PO SCH (10:10)
[2022-09-04] MEDS: APIXABAN 5 MG TABLET PO SCH ×2 (10:10→21:07)
[2022-09-04] MEDS: ACETAMINOPHEN 500 MG TABLET PO PRN (10:24)
--- NOTE | 2022-09-04 16:32 | ED Physician Documentation ---
ED Addendum - Addendum Addendum: Patient rested well overnight with no complaints.Labs today are relatively unchanged. He has been afebrile. PT and OT consults were ordered yesterday but unfortunately they were not able to see the patient today. Social work has evaluated the patient. After long discussions with patient and his they would like to try going home as they have plans with additional support. Patient and are comfortable with this plan and deny further needs at this time. Discharge plan was set in place By social work which patient was agreeable to. However then outreach and education social worker received a call and fall from [facility] and they were discontinuing their services as they were concerned that the patient was not safe at home. The is now not comfortable taking the patient home this evening. Patient to remain boarding in the emergency department pending placement. Departure - Departure Clinical Impression: Physical deconditioning Condition: Stable
[2022-09-04] MEDS: ACETAMINOPHEN 325 MG TABLET PO PRN (22:53)
[2022-09-05] MEDS: PANTOPRAZOLE 40 MG TABLET PO SCH (06:38)
[2022-09-05] MEDS: GABAPENTIN 100 MG CAPSULE PO SCH ×3 (06:39→21:30)
[2022-09-05] MEDS: APIXABAN 5 MG TABLET PO SCH ×2 (09:40→20:32)
[2022-09-05] MEDS: carvediloL 12.5 MG TABLET PO SCH ×2 (09:40→20:30)
[2022-09-05] MEDS: ASPIRIN CHEW 81 MG TABLET PO SCH (09:40)
[2022-09-05] MEDS: ATORVASTATIN 40 MG TABLET PO SCH (09:40)
[2022-09-05] MEDS: SPIRONOLACTONE 25 MG TABLET PO SCH (09:40)
[2022-09-05] MEDS: LIDOCAINE PATCH 5% TOP PRN (16:41)
[2022-09-06] MEDS: GABAPENTIN 100 MG CAPSULE PO SCH (05:30)
[2022-09-06] MEDS: PANTOPRAZOLE 40 MG TABLET PO SCH (06:35)
[2022-09-06] MEDS: ASPIRIN CHEW 81 MG TABLET PO SCH (10:23)
[2022-09-06] MEDS: SPIRONOLACTONE 25 MG TABLET PO SCH (10:23)
[2022-09-06] MEDS: carvediloL 12.5 MG TABLET PO SCH ×2 (10:24→21:07)
[2022-09-06] MEDS: ATORVASTATIN 40 MG TABLET PO SCH (10:24)
[2022-09-06] MEDS: APIXABAN 5 MG TABLET PO SCH ×2 (10:24→20:48)
[2022-09-06] MEDS: ACETAMINOPHEN 325 MG TABLET PO PRN ×2 (10:28→21:58)
[2022-09-06] MEDS: GABAPENTIN 300 MG CAPSULE PO SCH ×2 (13:04→21:57)
--- NOTE | 2022-09-06 16:11 | ED Physician Documentation ---
ED Addendum - Addendum Addendum: 09/06/22 16:10 No particular complaints today. He did have some oral intake. No further word on placement per social work as yet. Plan would be to continue current medications and diet. Try to have OT PT help with some physical conditioning.
[2022-09-07] MEDS: GABAPENTIN 300 MG CAPSULE PO SCH ×3 (06:31→21:35)
[2022-09-07] MEDS: PANTOPRAZOLE 40 MG TABLET PO SCH (06:31)
[2022-09-07] MEDS: SPIRONOLACTONE 25 MG TABLET PO SCH (09:41)
[2022-09-07] MEDS: carvediloL 12.5 MG TABLET PO SCH ×2 (09:41→20:48)
[2022-09-07] MEDS: ASPIRIN CHEW 81 MG TABLET PO SCH (09:41)
[2022-09-07] MEDS: ATORVASTATIN 40 MG TABLET PO SCH (09:41)
[2022-09-07] MEDS: APIXABAN 5 MG TABLET PO SCH ×2 (09:41→20:51)
[2022-09-07] MEDS: ACETAMINOPHEN 325 MG TABLET PO PRN ×2 (12:27→20:49)
[2022-09-07] MEDS: LIDOCAINE PATCH 5% TOP PRN (20:46)
[2022-09-08] MEDS: PANTOPRAZOLE 40 MG TABLET PO SCH (06:19)
[2022-09-08] MEDS: GABAPENTIN 300 MG CAPSULE PO SCH ×3 (06:19→20:37)
[2022-09-08] MEDS: ASPIRIN CHEW 81 MG TABLET PO SCH (12:25)
[2022-09-08] MEDS: ATORVASTATIN 40 MG TABLET PO SCH (12:25)
[2022-09-08] MEDS: carvediloL 12.5 MG TABLET PO SCH ×2 (12:25→20:37)
[2022-09-08] MEDS: APIXABAN 5 MG TABLET PO SCH ×2 (12:25→20:36)
[2022-09-08] MEDS: SPIRONOLACTONE 25 MG TABLET PO SCH (12:25)
[2022-09-08] MEDS: ACETAMINOPHEN 500 MG TABLET PO PRN (12:26)
--- NOTE | 2022-09-08 19:06 | ED Physician Documentation ---
ED Addendum - Addendum Addendum: 09/08/22 19:06 Patient was signed out to me this morning at change of shift, continuing to pend placement with social work. He has had no issues throughout the day. He has remained stable.
[2022-09-08] MEDS: LIDOCAINE PATCH 5% TOP PRN (20:37)
[2022-09-09] MEDS: GABAPENTIN 300 MG CAPSULE PO SCH ×3 (06:23→21:09)
[2022-09-09] MEDS: PANTOPRAZOLE 40 MG TABLET PO SCH (06:23)
[2022-09-09] MEDS: APIXABAN 5 MG TABLET PO SCH ×2 (10:23→21:09)
[2022-09-09] MEDS: ASPIRIN CHEW 81 MG TABLET PO SCH (10:24)
[2022-09-09] MEDS: ATORVASTATIN 40 MG TABLET PO SCH (10:24)
[2022-09-09] MEDS: carvediloL 12.5 MG TABLET PO SCH ×2 (10:25→21:09)
[2022-09-09] MEDS: SPIRONOLACTONE 25 MG TABLET PO SCH (10:25)
[2022-09-09] MEDS: polyethylene glycoL 3350 17 GM PACKET PO PRN (12:53)
[2022-09-09] MEDS: ACETAMINOPHEN 325 MG TABLET PO PRN (21:09)
[2022-09-10] MEDS: PANTOPRAZOLE 40 MG TABLET PO SCH (05:54)
[2022-09-10] MEDS: GABAPENTIN 300 MG CAPSULE PO SCH ×3 (05:54→21:26)
[2022-09-10] MEDS: ASPIRIN CHEW 81 MG TABLET PO SCH (08:53)
[2022-09-10] MEDS: APIXABAN 5 MG TABLET PO SCH ×2 (08:53→21:26)
[2022-09-10] MEDS: ATORVASTATIN 40 MG TABLET PO SCH (08:53)
[2022-09-10] MEDS: SPIRONOLACTONE 25 MG TABLET PO SCH (08:54)
[2022-09-10] MEDS: carvediloL 12.5 MG TABLET PO SCH ×2 (08:55→21:25)
[2022-09-10 16:48] LABS: BASOPHILS # (AUTO) 0.1 10^3/uL (0.0-0.1); BASOPHILS % (AUTO) 0.4 %; EOSINOPHILS # (AUTO) 0.5 10^3/uL (0.0-0.7); EOSINOPHILS % (AUTO) 3.6 %; HCT - HEMATOCRIT 39.2 % (42.0-52.0); HGB - HEMOGLOBIN 11.4 g/dL (14.0-18.0); LYMPHOCYTES # (AUTO) 2.8 10^3/uL (1.5-3.5); LYMPHOCYTES % (AUTO) 19.5 %; MEAN CORPUSCULAR HEMOGLOBIN 23.8 pg (27.0-31.0); MEAN CORPUSCULAR HGB CONC 29.1 g/dL (32.0-36.0); MEAN CORPUSCULAR VOLUME 81.7 fL (80.0-94.0); MEAN PLATELET VOLUME 9.8 fL (7.4-11.4); MONOCYTES # (AUTO) 1.1 10^3/uL (0.0-1.0); MONOCYTES % (AUTO) 7.8 %; NEUTROPHILS # (AUTO) 9.6 10^3/uL (1.5-6.6); NEUTROPHILS % (AUTO) 67.8 %; PLT - PLATELET COUNT 389 10^3/uL (130-450); RED CELL DISTRIBUTION WIDTH 18.1 % (12.0-15.0); WHITE BLOOD COUNT 14.2 x10^3/uL (4.8-10.8)
[2022-09-10 17:00] LABS: ALBUMIN 2.6 g/dL (3.2-5.5); ALBUMIN/GLOBULIN RATIO 0.6 (1.0-2.2); BILIRUBIN,TOTAL 0.7 mg/dL (0.2-1.0); CALCIUM 8.4 mg/dL (8.5-10.3); CREATININE 0.9 mg/dL (0.6-1.2); POTASSIUM 4.3 mmol/L (3.5-5.0); TOTAL PROTEIN 6.7 g/dL (6.7-8.2)
--- NOTE | 2022-09-10 19:42 | ED Physician Documentation ---
ED Addendum - Addendum Addendum: 09/10/22 19:39 Saw patient in afternoon on Med/Surg ED Boarding: he seemed calm, comfortable and relaxing in bed. Nursing reports skin check showed some partial thickness skin breakdown on sacrum and some to right side of scrotum. Ask for Cavalon cream and some skin barrier dressing to be ordered. Also wound care consult if possible. Per email about the boarding patients, I contacted the Hospitalist and asked for these orders so that they can be verified by pharmacy and show on floor nursing work lists. Dr. Pruitt says she will place orders.
[2022-09-10] MEDS: ACETAMINOPHEN 325 MG TABLET PO PRN (21:30)
[2022-09-11] MEDS: GABAPENTIN 300 MG CAPSULE PO SCH ×3 (05:17→21:31)
[2022-09-11] MEDS: PANTOPRAZOLE 40 MG TABLET PO SCH (05:18)
[2022-09-11] MEDS: APIXABAN 5 MG TABLET PO SCH ×2 (09:02→21:30)
[2022-09-11] MEDS: carvediloL 12.5 MG TABLET PO SCH ×2 (09:02→21:34)
[2022-09-11] MEDS: ASPIRIN CHEW 81 MG TABLET PO SCH (09:03)
[2022-09-11] MEDS: SPIRONOLACTONE 25 MG TABLET PO SCH (09:03)
[2022-09-11] MEDS: LIDOCAINE PATCH 5% TOP PRN (14:07)
[2022-09-11] MEDS: ACETAMINOPHEN 325 MG TABLET PO PRN (14:08)
--- NOTE | 2022-09-11 18:02 | ED Physician Documentation ---
ED Addendum - Addendum Addendum: 09/11/22 17:53 This patient was signed out to me at change of shift by Dr. Tomlinson, pending placement for chronic congestive heart failure, leading to deconditioning. Patient was admitted to the hospital and recently, to a rehab facility after experiencing an exacerbation of his chronic CHF. Because of his CHF, he has required chronic home therapy with diuretics in the form of furosemide, causing him to need to use the bathroom frequently. He also has chronic lower extremity edema due to this underlying condition, which makes his legs and feet heavier and has contributed to the difficulty regaining his strength and ability to care for himself. He has struggled to be able to get up and toilet himself, and states that it is too difficult for her to help the patient. The patient presented to the emergency department with generalized weakness. He was found on exam to be generally weak, with lower extremity edema and an elevated BNP on lab studies. While there was no evidence of an acute exacerbation at this time, these findings are indicative of the patient's ongoing and chronic congestive heart failure. At this point in time, he has not had any acute needs today. He is continuing to get his medications here in the emergency department, including the diuretic spironolactone for his CHF, given that his potassium has been within normal limits and a potassium sparing diuretic is preferable to maintain this. He continues to pend placement in a care facility by social work. He was signed out to the [facility] emergency physician at change of shift. 09/11/22 18:02
[2022-09-11] MEDS ORDERED: ATORVASTATIN 40 MG TABLET PO SCH (21:00)
[2022-09-11] MEDS: MIN OIL/DIMETHICON/COCONUT OIL 92 GM TUBE TOP SCH (21:29)
[2022-09-12] MEDS: GABAPENTIN 300 MG CAPSULE PO SCH ×3 (05:14→22:25)
[2022-09-12] MEDS: PANTOPRAZOLE 40 MG TABLET PO SCH (05:14)
[2022-09-12] MEDS: SPIRONOLACTONE 25 MG TABLET PO SCH (08:55)
[2022-09-12] MEDS: ASPIRIN CHEW 81 MG TABLET PO SCH (08:55)
[2022-09-12] MEDS: carvediloL 12.5 MG TABLET PO SCH ×2 (08:55→21:24)
[2022-09-12] MEDS: MIN OIL/DIMETHICON/COCONUT OIL 92 GM TUBE TOP SCH ×2 (08:57→21:27)
[2022-09-12] MEDS: APIXABAN 5 MG TABLET PO SCH ×2 (08:58→21:24)
[2022-09-12] MEDS: polyethylene glycoL 3350 17 GM PACKET PO PRN (08:59)
[2022-09-12 11:39] LABS: BASOPHILS % (AUTO) 0.3 %; EOSINOPHILS # (AUTO) 0.5 10^3/uL (0.0-0.7); EOSINOPHILS % (AUTO) 4.3 %; HCT - HEMATOCRIT 39.1 % (42.0-52.0); HGB - HEMOGLOBIN 11.6 g/dL (14.0-18.0); LYMPHOCYTES # (AUTO) 2.8 10^3/uL (1.5-3.5); LYMPHOCYTES % (AUTO) 24.9 %; MEAN CORPUSCULAR HEMOGLOBIN 24.1 pg (27.0-31.0); MEAN CORPUSCULAR HGB CONC 29.7 g/dL (32.0-36.0); MEAN CORPUSCULAR VOLUME 81.3 fL (80.0-94.0); MONOCYTES # (AUTO) 0.9 10^3/uL (0.0-1.0); MONOCYTES % (AUTO) 7.7 %; NEUTROPHILS # (AUTO) 6.8 10^3/uL (1.5-6.6); NEUTROPHILS % (AUTO) 61.4 %; PLT - PLATELET COUNT 426 10^3/uL (130-450); RED BLOOD COUNT 4.81 10^6/uL (4.70-6.10); RED CELL DISTRIBUTION WIDTH 18.3 % (12.0-15.0)
[2022-09-12 11:44] LABS: ALBUMIN 2.6 g/dL (3.2-5.5); ALBUMIN/GLOBULIN RATIO 0.6 (1.0-2.2); BILIRUBIN,TOTAL 0.4 mg/dL (0.2-1.0); CALCIUM 8.5 mg/dL (8.5-10.3); CREATININE 0.9 mg/dL (0.6-1.2); TOTAL PROTEIN 6.7 g/dL (6.7-8.2)
--- NOTE | 2022-09-12 13:12 | ED Physician Documentation ---
ED Addendum - Addendum Addendum: 09/12/22 13:10 Patient seen and examined at bedside. He has no specific complaints other than he is worried about his ability to go home since he cannot walk. He is upset because his prior assisted had written somewhere that he could walk. That is what he thinks got kicked him out of the assisted in the first place. Although he is not bothered by it, the nurse was worried about a sacral pressure ulcer. Objective vital signs reviewed and unremarkable. He is on 2 L nasal cannula. Nurse had requested labs, CBC reviewed with moderate stable anemia and improving leukocytosis, CMP reviewed with stable findings of elevated BUN and mild hypochloremia. He appears comfortable, he does have a stage II sacral pressure ulcer without findings of infection. Plan: 1. Sacral pressure ulcer, nurse practitioner Russ will see him tomorrow. The physician doing wound care today is not set up for this patient's insurance. 2. Chronic weakness, a placement issue which social work is working with him on. He continues to board as an emergency department status patient but on the floor now.
[2022-09-12] MEDS: LIDOCAINE PATCH 5% TOP PRN (16:16)
[2022-09-12] MEDS: MIN OIL/DIMETHICON/COCONUT OIL 92 GM TUBE TOP PRN (16:20)
[2022-09-12] MEDS: ACETAMINOPHEN 500 MG TABLET PO PRN (21:24)
[2022-09-12] MEDS: ATORVASTATIN 40 MG TABLET PO SCH (21:24)
[2022-09-13] MEDS: MIN OIL/DIMETHICON/COCONUT OIL 92 GM TUBE TOP PRN (00:10)
[2022-09-13] MEDS: GABAPENTIN 300 MG CAPSULE PO SCH ×3 (06:32→21:43)
[2022-09-13] MEDS: ASPIRIN CHEW 81 MG TABLET PO SCH (09:17)
[2022-09-13] MEDS: PANTOPRAZOLE 40 MG TABLET PO SCH (09:17)
[2022-09-13] MEDS: APIXABAN 5 MG TABLET PO SCH ×2 (09:18→21:43)
[2022-09-13] MEDS: MIN OIL/DIMETHICON/COCONUT OIL 92 GM TUBE TOP SCH ×2 (09:18→21:51)
[2022-09-13] MEDS: SPIRONOLACTONE 25 MG TABLET PO SCH (09:18)
[2022-09-13] MEDS: carvediloL 12.5 MG TABLET PO SCH ×2 (09:18→21:44)
--- NOTE | 2022-09-13 13:14 | ED Physician Documentation ---
ED Addendum - Addendum Addendum: 09/13/22 13:13 Patient seen and examined. No specific complaints. Vital signs reviewed and unremarkable. Per the nurse going for wound care today. Preliminary wound culture showing Proteus and gram-positive growth. Will defer till after wound care if he should be started on antibiotics. He continues to board in the emergency department for placement as he says he is too weak to go home. And his cannot care for him.
--- NOTE | 2022-09-13 15:34 | WOUND CARE CONSULTATION ---
Referring Provider Name of Referring Provider:: Deon Gonzalez MD Consult Date: 09/13/22 Chief Complaint - Chief Complaint Chief Complaint: Sacral pressure injury History of Present Illness - History Obtained From Records Reviewed: [facility] History obtained from: Patient Exam Limitations: None - History of Present Illness HPI: This very pleasant 81 year old male presents today for evaluation and treatment of pressure injury to sacral region. Patient has been boarding in the ED due to lack of placement since 09/03/22. He has had an indwelling schaeffer catheter for several weeks. He is non-ambulatory for years due to a back injury in 2002. It is reported that he will be going home in the next couple of days. He states that he thinks he will have home health available to help with dressing changes. History - Past Medical History Cardiovascular: reports: Congestive heart failure, Hypertension, High cholesterol, Coronary artery disease, [facility] Respiratory: reports: None Endocrine/Autoimmune: reports: None GI: reports: GERD : reports: Retention, Indwelling catheter HEENT: reports: Chronic hearing loss, Dental implants Psych: reports: None Musculoskeletal: reports: Fatigue, Chronic back pain Derm: reports: None MRSA Hx?: No Other Past Medical History: pt reports h/o SC infection s/p lumbar laminectomy approx 2002 at [facility] - Past Surgical History General: reports: Colonoscopy, Other Ortho: reports: Knee replacement, Spine surgery, Other Cardiovascular: reports: Coronary stent, Pacemaker, Angioplasty HEENT: reports: Cataracts - Family & Social History Family History: Mother: (Both parents at age 50, father from heardening of arteries. mother sickened on the farm and suddenly. Sister age 1.5 yrs.), Father: , CVA/TIA, Sister: Alive and Well (1 sister and 3 brothers are living. One brother also has a pacemaker), , Brother: Alive and Well - Substance History Use: Uses substance without health or social issues: NONE - POLST Patient has POLST: Yes POLST Status: Full Code Review of Systems - Constitutional Constitutional: reports: Weakness. denies: Fever, Chills - Other Findings Other Findings: Sacral wound Objective General: Alert, Oriented x3, Cooperative, No acute distress - Wound Assessment Wound #1 Sacral region: 11.5 x 8.0 x 0.1 Wound is an unstageable pressure injury covering sacral region to include both right and left buttocks. The wound bed is 100% thick adherent yellow to brown slough. The wound edges are attached. There is minimal drainage. Strong odor present. 2-3 cm of deep purple discoloration of periwound on the right, not blanchable, indicating possible DTI. Patient denies any pain. Wound was cultured yesterday. 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 Wound bed is 100% pale granular tissue with overlying thin slough. Edges are attached. No tunneling or undermining. Light drainage, periowound wnl. Patient reports some tenderness. No clinical signs of infection. Wound #3 Left lateral malleolus: 0.4 x 0.4 x 0.1 Wound is a stage 2 Wound bed is 100% pale granular dry tissue. Edges are attached. No tunneling or undermining. No drainage, periowound wnl. Patient denies tenderness. No clinical signs of infection. Conclusion and Plan - Problem List (1) Pressure injury of sacral region, unstageable Assessment/Plan: Unstageable pressure injury. Strong odor. Suspected infection. Plan of care: Unable to debride today due to thick adherent slough. Wound hygiene with antimicrobial solution. Dressing with honey alginate followed by ABD and skin sensitive tape. Dressing should stay dry and in place if possible. If outer dressing becomes soiled, replace with new ABD and tape. If honey alginate becomes soiled, cleanse wound with an antimicrobial solution and normal saline and dress with a duoderm. Wound was cultured yesterday by ED. After talking with Deon Gonzalez MD, it was decided to empirically treat with oral antibiotics at this time. Dr. Gonzalez will prescribe Augmentin 875/125mg po bid x 10 days. Patient to RTC next week on 09/17/2022 for follow up appointment with debridement. 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 Likely due to chronic indwelling schaeffer catheter. Plan of care: Wound cleansed with antimicrobial solution and normal saline. Extra thick antifungal barrier cream was applied. Nurses to apply zinc to area 2-3 times per day. Additional stabilizing device added to tubing to prevent friction. (3) Pressure injury of left ankle, stage 2 Assessment/Plan: Lateral malleolus. Stable at this time. Plan of care: Duoderm placed over the area to prevent further injury. Ensure proper offloading. - Results Lab Results: Laboratory Results Sodium 136 mmol/L (135-145) 09/12/22 11: Potassium 4.0 mmol/L (3.5-5.0) 09/12/22 11:23 Chloride 98 mmol/L (101-111) L 09/12/22 11:23 Carbon Dioxide 31 mmol/L (21-32) 09/12/22 11:23 Anion Gap 7.0 (6-13) 09/12/22 11:23 BUN 25 mg/dL (6-20) H 09/12/22 11:23 Creatinine 0.9 mg/dL (0.6-1.2) 09/12/22 11: Glucose 125 mg/dL (70-100) H 09/12/22 11:23 Calcium 8.5 mg/dL (8.5-10.3) 09/12/22 11: Total Bilirubin 0.4 mg/dL (0.2-1.0) 09/12/22 11:23 AST 33 IU/L (10-42) 09/12/22 11:23 ALT 40 IU/L (10-60) 09/12/22 11:23 Alkaline Phosphatase 104 IU/L (42-121) 09/12/22 11:23 Total Protein 6.7 g/dL (6.7-8.2) 09/12/22 11:23 Albumin 2.6 g/dL (3.2-5.5) L 09/12/22 11:23 Globulin 4.1 g/dL (2.1-4.2) 09/12/22 11:23 Albumin/Globulin Ratio 0.6 (1.0-2.2) L 09/12/22 11:23 09/12/22 13:25 Buttock - Left Wound Culture - Preliminary - Home Meds/Allergies Allergies No Known Drug Allergies Allergy (Verified 06/11/22 12:25) Home Medications Apixaban [Eliquis] 1 tab PO BID 09/04/22 [History Confirmed 09/04/22] Cholecalciferol [Vitamin D3] 1 tab PO DAILY 09/04/22 [History Confirmed 12/22] Furosemide [Lasix] 1 tab PO DAILY 09/04/22 [History Confirmed 09/04/22] Lidocaine Patch 5% [Lidoderm Patch] 1 patch TOP DAILY PRN 09/04/22 [History Confirmed 09/04/22] - Plan Condition/Complexity: Stable
[2022-09-13] MEDS: ACETAMINOPHEN 500 MG TABLET PO PRN ×2 (15:52→21:50)
[2022-09-13] MEDS: AMOX/CLAV 875 MG/125 MG TABLET PO SCH (21:43)
[2022-09-13] MEDS: MULTIVITAMIN W/MINERALS TABLET PO SCH (21:45)
[2022-09-13] MEDS: ATORVASTATIN 40 MG TABLET PO SCH (21:49)
[2022-09-13] MEDS: LIDOCAINE PATCH 5% TOP PRN (21:56)
[2022-09-14] MEDS: GABAPENTIN 300 MG CAPSULE PO SCH ×2 (06:30→14:49)
[2022-09-14] MEDS: PANTOPRAZOLE 40 MG TABLET PO SCH (06:30)
[2022-09-14] MEDS ORDERED: ZINC OXIDE 20% OINT 30 GM TUBE TOP PRN (06:35)
[2022-09-14] MEDS: ACETAMINOPHEN 500 MG TABLET PO PRN (06:37)
[2022-09-14] MEDS: ASPIRIN CHEW 81 MG TABLET PO SCH (08:51)
[2022-09-14] MEDS: AMOX/CLAV 875 MG/125 MG TABLET PO SCH (08:51)
[2022-09-14] MEDS: APIXABAN 5 MG TABLET PO SCH (08:51)
[2022-09-14] MEDS: SPIRONOLACTONE 25 MG TABLET PO SCH (08:52)
[2022-09-14] MEDS: MULTIVITAMIN W/MINERALS TABLET PO SCH (08:52)
[2022-09-14] MEDS: carvediloL 12.5 MG TABLET PO SCH (08:52)
[2022-09-14] MEDS: MIN OIL/DIMETHICON/COCONUT OIL 92 GM TUBE TOP SCH (09:08)
[2022-09-14] MEDS: ACETAMINOPHEN 325 MG TABLET PO PRN ×2 (12:45→18:21)
[2022-09-14 15:40] VITALS: BP 108/49
--- NOTE | 2022-09-14 16:10 | ED Physician Documentation ---
ED Addendum - Addendum Addendum: 09/14/22 16:10 Patient is still hypoxic, he was hypoxic on room air, O2 sat 83%. 2 L nasal cannula at rest O2 saturation improved to 93%. He will need home O2, 2 L/min to treat his hypoxia, likely from right-sided heart failure as well as sleep apnea.
--- NOTE | 2022-09-14 18:35 | ED Physician Documentation ---
ED Addendum - Addendum Addendum: 09/14/22 18:32 Armani Sunshine is an 81-year-old male with a chronic back injury resulting in poor muscle control to his lower extremities especially on the right. He was hospitalized at the [place] and discharged to a nursing facility for rehabilitation. He had incomplete rehabilitation at the facility his insurance ran out and he was unable to care for himself at home. He has been in our facility for more than 10 days working on placement and a hospital bed has been brought to his [facility] and he is wanting to return to his home. He does have additional help that has been set up as well. He has oxygen. He has been noted to have a decubitus ulcer that is nonpainful as he does not h ave sensation there and it appears infected. He has been placed onto Augmentin and has a follow-up with the wound care clinic on the .I found the patient's predicament to be guarded and I wished him luck.
== END 2022-09-14 19:20 | disposition home or self-care (01) ==
LOC: EDUNIT# → ED 12:39 → MS2 09-10 05:22 → ED 09-14 19:20
DX: Z72.3 Lack of physical exercise (principal); Z74.2 Need for assistance at home and no other household member able to render care; R09.02 Hypoxemia; Z99.81 Dependence on supplemental oxygen; I11.0 Hypertensive heart disease with heart failure; I50.9 Heart failure, unspecified; L89.150 Pressure ulcer of sacral region, unstageable; L89.320 Pressure ulcer of left buttock, unstageable; L89.310 Pressure ulcer of right buttock, unstageable; L89.892 Pressure ulcer of other site, stage 2; L89.523 Pressure ulcer of left ankle, stage 3; Z76.4 Other boarder to healthcare facility; Z20.822 Contact with and (suspected) exposure to COVID-19; Z74.01 Bed confinement status; R33.9 Retention of urine, unspecified; Z96.0 Presence of urogenital implants
CPT/HCPCS: 36415; 71045; 80048; 80053; 83690; 83735; 83880; 85025; 87070; 87077; 87181; 87205; 87635; 93005; 94761; 99284; A6250; A9270

== ENCOUNTER 2022-09-14 19:18 | Outpatient (CLI) | payer MEDICARE, OTHER | END 2022-09-14 19:19 | disposition home or self-care (01) | LOC: EMS 19:18 | PROVIDERS: ATTEND Emergency Medicine | DX: L89.159 Pressure ulcer of sacral region, unspecified stage (principal); I50.9 Heart failure, unspecified; R09.02 Hypoxemia; Z74.01 Bed confinement status | CPT/HCPCS: A0425; A0428 ==

== ENCOUNTER 2022-10-17 12:53 | Outpatient (CLI) | payer MEDICARE, OTHER ==
[2022-10-17 13:05] LABS: BASOPHILS # (AUTO) 0.1 10^3/uL (0.0-0.1); BASOPHILS % (AUTO) 0.4 %; EOSINOPHILS # (AUTO) 0.3 10^3/uL (0.0-0.7); EOSINOPHILS % (AUTO) 2.2 %; HCT - HEMATOCRIT 40.7 % (42.0-52.0); HGB - HEMOGLOBIN 11.9 g/dL (14.0-18.0); LYMPHOCYTES # (AUTO) 2.2 10^3/uL (1.5-3.5); LYMPHOCYTES % (AUTO) 19.3 %; MEAN CORPUSCULAR HEMOGLOBIN 25.1 pg (27.0-31.0); MEAN CORPUSCULAR HGB CONC 29.2 g/dL (32.0-36.0); MEAN CORPUSCULAR VOLUME 85.9 fL (80.0-94.0); MEAN PLATELET VOLUME 9.6 fL (7.4-11.4); MONOCYTES # (AUTO) 0.7 10^3/uL (0.0-1.0); MONOCYTES % (AUTO) 6.1 %; NEUTROPHILS # (AUTO) 8.2 10^3/uL (1.5-6.6); NEUTROPHILS % (AUTO) 71.6 %; PLT - PLATELET COUNT 253 10^3/uL (130-450); RED BLOOD COUNT 4.74 10^6/uL (4.70-6.10); WHITE BLOOD COUNT 11.4 x10^3/uL (4.8-10.8)
[2022-10-17 13:08] LABS: BILIRUBIN,URINE NEGATIVE (NEGATIVE); GLUCOSE, URINE (UA) NEGATIVE (NEGATIVE); KETONES,URINE (UA) NEGATIVE (NEGATIVE); LEUKOCYTE ESTERASE, URINE TRACE (NEGATIVE); NITRITE,URINE POSITIVE (NEGATIVE); OCCULT BLOOD,URINE NEGATIVE (NEGATIVE); PH,URINE 8.5 PH (5.0-7.5); PROTEIN,URINE TRACE mg/dL (NEGATIVE); UROBILINOGEN,URINE 2 E.U./dL (NORMAL)
[2022-10-17 13:14] LABS: CALCIUM 8.1 mg/dL (8.5-10.3); CREATININE 0.9 mg/dL (0.6-1.2)
[2022-10-17 13:22] LABS: CLARITY,URINE SL. CLOUDY (CLEAR); RBC,URINE 0-5 /HPF (0-5); SQUAMOUS EPITHELIAL CELL,UR NONE SEEN (<= Few); WBC,URINE >25 /HPF (0-3)
[2022-10-17 13:23] LABS: BACTERIA,URINE Moderate /HPF (None Seen)
== END 2022-10-17 12:54 | disposition home or self-care (01) ==
LOC: LAB 12:53 → LAB.R 12:54
PROVIDERS: ATTEND Student in an Organized Health Care Education/Training Program
DX: I11.0 Hypertensive heart disease with heart failure (principal); I50.9 Heart failure, unspecified; D64.9 Anemia, unspecified; N39.0 Urinary tract infection, site not specified
CPT/HCPCS: 80048; 81001; 85025; 87077; 87086; 87181

== ENCOUNTER 2022-12-16 21:52 | Outpatient (CLI) | payer MEDICARE, OTHER | END 2022-12-16 21:53 | disposition EMS.NT | LOC: EMS 21:52 | DX: Z03.89 Encounter for observation for other suspected diseases and conditions ruled out (principal) ==

== ENCOUNTER 2022-12-17 13:55 | Outpatient (CLI) | payer MEDICARE, OTHER | END 2022-12-17 13:56 | disposition short-term general hospital (02) | LOC: EMS 13:55 | DX: R53.1 Weakness (principal); R06.00 Dyspnea, unspecified; M79.89 Other specified soft tissue disorders; R82.90 Unspecified abnormal findings in urine | CPT/HCPCS: A0425; A0429; A0888 ==

== ENCOUNTER 2022-12-22 11:32 | Outpatient (CLI) | payer MEDICARE, OTHER | END 2022-12-22 11:33 | disposition critical access hospital (66) | LOC: EMS 11:32 | DX: R82.90 Unspecified abnormal findings in urine (principal); R31.9 Hematuria, unspecified; Z74.09 Other reduced mobility | CPT/HCPCS: A0425; A0429 ==

== ENCOUNTER 2022-12-22 11:56 | Emergency (ER) | payer MEDICARE, OTHER ==
[2022-12-22 12:07] VITALS: BP 105/76
--- OUTSIDE RECORDS SUMMARY | 2022-12-22 12:07 | EXTERNAL MEDICAL SUMMARY RPT | Continuity of Care Document ---
:1940 Author Organization [facility] Address [address] [place] [address] Phone Care Team Providers Name Role Phone Unavailable Unavailable Unavailable Vanessa Krishnamurthy Unavailable Unavailable Allergies and Intolerances date description facility type (no date) No Known Drug Allergies [facility] (unkn own) Encounters No information. Functional Status No information. Immunizations No information. Medications date description facility 2022-09-23 00:00 Docusate Sodium [facility] 2022-09-23 00:00 Lidocaine [facility] 2022-09-23 00:00 Amoxicillin-Pot Clavulanate [facility] Problems date description facility 2022-09-23 11:28 Paraplegia, unspecified [facility] 2022-09-23 11:28 Pressure ulcer of sacral region, [facility] 2022-09-23 11:49 Paraplegia, unspecified [facility] 2022-09-23 11:49 Pressure ulcer of sacral region, [facility] 2022-09-23 12:54 Paraplegia, [facility] 2022-09-23 12:54 Pressure ulcer of sacral region, [facility] 2022-09-23 14:26 Paraplegia, unspecified [facility] 2022-09-23 14:26 Pressure ulcer of sacral region, [facility] 2022-09-24 12:16 Paraplegia, unspecified [facility] 2022-09-24 12:16 Pressure ulcer of sacral region, [facility] 2022-12-17 00:00 Swelling of lower extremity [facility] Procedures date description facility 2022-09-23 00:00 Anaerobic Culture [facility] 2022-09-23 00:00 Gram Stain [facility] 2022-12-17 00:00 Ultrasound of peripheral veins of both [facility] extremities Results/Labs test date author facility value unit interpret ation Result panel 1 (unknown) (no date[facility]) Result panel 2 (unknown) (no date) (unknown[facility]) Result panel 3 (unknown) (no date) (unknown[facility]) Result panel 4 (unknown) (no date) (unknown[facility]) Result panel 5 (unknown) (no date) (unknown[facility]) Result panel 6 (unknown) (no date) (unknown[facility]) Result panel 7 (unknown) (no date) (unknown[facility]) Result panel 8 (unknown) (no date) (unknown[facility]) Result panel 9 (unknown) (no date) (unknown[facility]) Result panel 10 (unknown) (no date) (unknown[facility]) Result panel 11 (unknown) (no date) (unknown[facility]) Result panel 12 (unknown) (no date) (unknown[facility]) Result panel 13 (unknown) (no date) (unknown[facility]) Result panel 14 (unknown) (no date) (unknown[facility]) Result panel 15 (unknown) (no date) (unknown[facility]) Result panel 16 (unknown) (no date) (unknown[facility]) Result panel 17 (unknown) (no date) (unknown[facility]) Result panel 18 (unknown) (no date) (unknown[facility]) Result panel 19 (unknown) (no date) (unknown[facility]) Result panel 20 (unknown) (no date) (unknown[facility]) Result panel 21 (unknown) (no date) (unknown[facility]) Result panel 22 (unknown) (no date) (unknown[facility]) Result panel 23 (unknown) (no date) (unknown[facility]) Result panel 24 (unknown) (no date) (unknown[facility]) Result panel 25 (unknown) (no date) (unknown[facility]) Result panel 26 (unknown) (no date) (unknown[facility]) Result panel 27 (unknown) (no date) (unknown[facility]) Result panel 28 (unknown) (no date) (unknown[facility]) Result panel 29 (unknown) (no date) (unknown[facility]) Result panel 30 (unknown) (no date) (unknown[facility]) Result panel 31 (unknown) (no date) (unknown[facility]) Result panel 32 (unknown) (no date) (unknown[facility]) Result panel 33 (unknown) (no date) (unknown[facility]) Result panel 34 (unknown) (no date) (unknown[facility]) Result panel 35 (unknown) (no date) (unknown[facility]) Result panel 36 (unknown) (no date) (unknown[facility]) Result panel 37 (unknown) (no date) (unknown[facility]) Result panel 38 (unknown) (no date) (unknown[facility]) Result panel 39 (unknown) (no date) (unknown[facility]) Result panel 40 (unknown) (no date) (unknown) [facility]) Result panel 41 (unknown) (no date) (unknown[facility]) Result panel 42 (unknown) (no date) (unknown[facility]) Result panel 43 (unknown) (no date) (unknown) [facility]) Result panel 44 (unknown) (no date) (unknown[facility]) Result panel 45 (unknown) (no date) (unknown[facility]) Result panel 46 (unknown) (no date) (unknown[facility]) Result panel 47 (unknown) (no date) (unknown) [facility]) Result panel 48 (unknown) (no date) (unknown[facility]) Result panel 49 (unknown) (no date) (unknown) [facility]) Result panel 50 (unknown) (no date) (unknown[facility]) Result panel 51 (unknown) (no date) (unknown) [facility]) Result panel 52 (unknown) (no date) (unknown) [facility]) Result panel 53 (unknown) (no date) (unknown) [facility]) Result panel 54 (unknown) (no date) (unknown) [facility]) Result panel 55 (unknown) (no date) (unknown) [facility]) Result panel 56 (unknown) (no date) (unknown) [facility]) Result panel 57 (unknown) (no date) (unknown[facility]) Result panel 58 (unknown) (no date) (unknown[facility]) Result panel 59 (unknown) (no date) (unknown[facility]) Result panel 60 (unknown) (no date) (unknown) [facility]) Result panel 61 (unknown) (no date) (unknown) [facility]) Result panel 62 (unknown) (no date) (unknown) [facility]) Result panel 63 (unknown) (no date) (unknown) [facility]) Result panel 64 (unknown) (no date) (unknown) [facility]) Result panel 65 (unknown) (no date) (unknown) [facility]) Result panel 66 (unknown) (no date) (unknown) [facility]) Result panel 67 (unknown) (no date) (unknown) [facility]) Result panel 68 (unknown) (no date) (unknown) [facility]) Result panel 69 (unknown) (no date) (unknown) [facility]) Result panel 70 (unknown) (no date) (unknown) [facility]) Result panel 71 (unknown) (no date) (unknown) [facility]) Result panel 72 (unknown) (no date) (unknown) [facility]) Result panel 73 (unknown) (no date) (unknown) [facility]) Result panel 74 (unknown) (no date) (unknown) [facility]) Result panel 75 (unknown) (no date) (unknown) [facility]) Result panel 76 (unknown) (no date) (unknown) [facility]) Result panel 77 (unknown) (no date) (unknown) [facility]) Result panel 78 (unknown) (no date) (unknown) [facility]) Result panel 79 (unknown) (no date) (unknown) [facility]) Result panel 80 (unknown) (no date) (unknown) [facility]) Result panel 81 (unknown) (no date) (unknown) [facility]) Result panel 82 (unknown) (no date) (unknown) [facility]) Result panel 83 (unknown) (no date) (unknown) [facility]) Result panel 84 (unknown) (no date) (unknown) [facility]) Result panel 85 (unknown) (no (unknown) (unknown) (no value) (units (unk nown) date) unknown) (unknown) (no (unknown) (unknown) (past 8 hours): (units (unknown) date) unknown) (unknown) (no (unknown) (unknown) (reported (units (unkn own) date) secondary to unknown) laminectomy in 2002 that resulted in spinal Staph (unknown) (no (unknown) (unknown) - PT, OT (units (unkno wn) date) unknown) (unknown) (no (unknown) (unknown) -Antibiotics as (units (unknown) date) noted above. unknown) (unknown) (no (unknown) (unknown) -Dr. Bermudez ,? (units (unknown) date) OR for debridement unknown) performed couple of days ago. Necrotic (unknown) (no (unknown) (unknown) -EKG sinus rhythm (units (unknown) date) rate 73 with unknown) nonspecific ST and T-wave changes (unknown) (no (unknown) (unknown) -Schaeffer in (units (unkn own) date) place?(chronic) unknown) (unknown) (no (unknown) (unknown) -No DVT on (units (unk nown) date) ultrasound. unknown) (unknown) (no (unknown) (unknown) -PT/OT evaluation (units (unknown) date) as noted above. unknown) (unknown) (no (unknown) (unknown) -antibiotics (units (u nknown) date) narrowed to unknown) augmentin based on wound culture results with proteus (unknown) (no (unknown) (unknown) -continue Coreg (units (unknown) date) and lisinopril. unknown) (unknown) (no (unknown) (unknown) -continue (units (unkn own) date) lidocaine patches, unknown) gabapentin (unknown) (no (unknown) (unknown) -continue (units (unkn own) date) simvastatin unknown) changed to atorvastatin for hospital formulary. (unknown) (no (unknown) (unknown) -dietary consult (units (unknown) date) ordered regarding unknown) nutritional education and information for (unknown) (no (unknown) (unknown) -discharge patient (units (unknown) date) is being unknown) transferred to [facility] in [place] on a (discharge (unknown) (no (unknown) (unknown) -discontinue tele (units (unknown) date) for now. 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 (unknown) (no (unknown) (unknown) -no previous (units (u nknown) date) documentation in unknown) our system (unknown) (no (unknown) (unknown) -pain (units (unkno wn) date) management,? unknown) continue lidocaine patches, continue gabapentin (unknown) (no (unknown) (unknown) -patient (units (unkno wn) date) recommended for unknown) SNF placement, awaiting approval with his wound vac (unknown) (no (unknown) (unknown) -resumed Eliquis. (units (unknown) date) unknown) (unknown) (no (unknown) (unknown) -the patient is (units (unknown) date) at much higher unknown) risk for medical and surgical complications due (unknown) (no (unknown) (unknown) -troponins (units (unk nown) date) negative. unknown) (unknown) (no (unknown) (unknown) 09/16/22 17:37 (units (unknown) date) unknown) (unknown) (no (unknown) (unknown) 09/16/22 22:48 (units (unknown) date) unknown) (unknown) (no (unknown) (unknown) 09/17/22 04:00 (units (unknown) date) unknown) (unknown) (no (unknown) (unknown) 09/17/22 04:01 (units (unknown) date) unknown) (unknown) (no (unknown) (unknown) 09/17/22 04:11 (units (unknown) date) unknown) (unknown) (no (unknown) (unknown) 09/19/22 05:06 (units (unknown) date) unknown) (unknown) (no (unknown) (unknown) 09/23/22 (units (unkno wn) date) unknown) (unknown) (no (unknown) (unknown) [id number] (units (unkno wn) date) unknown) (unknown) (no (unknown) (unknown) 04:00 (units (unkno wn) date) unknown) (unknown) (no (unknown) (unknown) 1 patch (units (unkno wn) date) transdermal Q12H unknown) PRN (Reason: Pain, Mild) (unknown) (no (unknown) (unknown) 1 puff INHALATION (units (unknown) date) PRN PRN (Reason: unknown) Wheezing) (unknown) (no (unknown) (unknown) 1. Sacral (units (unkn own) date) decubitus ulcer unknown) acute, in an incomplete SCI paraplegic, chronic, (unknown) (no (unknown) (unknown) 18, O2 saturation (units (unknown) date) 95% on room unknown) air-the patient states that he does not require (unknown) (no (unknown) (unknown) 2. UTI, (units (unkno wn) date) associated with unknown) chronic indwelling catheter. Intermittent self (unknown) (no (unknown) (unknown) 2.5 mg PO BID (units ( unknown) date) unknown) (unknown) (no (unknown) (unknown) 25 mg PO BID Qty: (units (unknown) date) 0 unknown) (unknown) (no (unknown) (unknown) 3. 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 Congestive (units ( unknown) date) heart failure (No unknown) ECHO available), chronic, with a history of [place] (unknown) (no (unknown) (unknown) 40 mg PO DAILY (units (unknown) date) unknown) (unknown) (no (unknown) (unknown) 5. Right leg (units (u nknown) date) edema, with unknown) erythema, acute, present on admission and improving. (unknown) (no (unknown) (unknown) 6. Hypertension (units (unknown) date) essential,? unknown) present on admission and stable. (unknown) (no (unknown) (unknown) 600 mg PO TID (units ( unknown) date) unknown) (unknown) (no (unknown) (unknown) 7. Chronic low (units (unknown) date) back, present on unknown) admission and stable. (unknown) (no (unknown) (unknown) 77.4, MCH 24.7, (units (unknown) date) platelets 407, unknown) bicarb 33, alk-phos 148, INR stable 1.3, lactate, (unknown) (no (unknown) (unknown) 8. (units (unkno wn) date) Hyperlipidemia,? unknown) present on admission and stable. (unknown) (no (unknown) (unknown) 9. Morbid obesity (units (unknown) date) secondary to unknown) incomplete SCI paraplegic, acute on chronic, (unknown) (no (unknown) (unknown) ?-as evidence by (units (unknown) date) BMI 44.3 unknown) (unknown) (no (unknown) (unknown) Age/Sex: 81 / M (units (unknown) date) unknown) (unknown) (no (unknown) (unknown) At the time of (units ( unknown) date) admit patient's unknown) vitals are stable temp 98.2?, BP 131/58, HR 76, R (unknown) (no (unknown) (unknown) Blood Pressure (units (unknown) date) 90/54 L unknown) (unknown) (no (unknown) (unknown) Kalen Meza P, (units (unknown) date) [Physician] unknown) (unknown) (no (unknown) (unknown) COVID PCR:? (units (un known) date) Negative unknown) (unknown) (no (unknown) (unknown) Chief complaint: (units (unknown) date) pressure sore unknown) (unknown) (no (unknown) (unknown) Chronic (units (unkno wn) date) anticoagulation unknown) (unknown) (no (unknown) (unknown) Chronic (units (unkno wn) date) indwelling Schaeffer unknown) catheter (unknown) (no (unknown) (unknown) Armani Cheema is (units (unknown) date) an 81-year-old unknown) male CHF, MN stent x2, pacer on chronic Eliquis, (unknown) (no (unknown) (unknown) Code status:Full (units (unknown) date) unknown) (unknown) (no (unknown) (unknown) Comment: (units (unkno wn) date) Decubitus ulcer, unknown) incomplete paraplegic (unknown) (no (unknown) (unknown) Comment: Sacral (units (unknown) date) decubiti, right unknown) penile shaft wound, rt ashraf (unknown) (no (unknown) (unknown) Comment: (units (unkno wn) date) unknown) (unknown) (no (unknown) (unknown) Congestive heart (units (unknown) date) failure unknown) (unknown) (no (unknown) (unknown) Consult to (units (unk nown) date) Dietitian, Adult unknown) Routine (unknown) (no (unknown) (unknown) 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 (unknown) (no (unknown) (unknown) Consult to (units (unk nown) date) Occupational unknown) Therapy Evaluate + Treat (unknown) (no (unknown) (unknown) Consult to (units (unk nown) date) Physical Therapy unknown) Evaluate + Treat (unknown) (no (unknown) (unknown) Consult to (units (unk nown) date) Physician Routine unknown) (unknown) (no (unknown) (unknown) Consult to Wound (units (unknown) date) Care Urgent unknown) (unknown) (no (unknown) (unknown) Consulting (units (unk nown) date) Provider: unknown) Jacquelyn Bermudez (unknown) (no (unknown) (unknown) Consulting (units (unk nown) date) Provider: unknown) [facility] (unknown) (no (unknown) (unknown) Consults: (units (unkn own) date) unknown) (unknown) (no (unknown) (unknown) Coronary artery (units (unknown) date) disease unknown) (unknown) (no (unknown) (unknown) : 1940 (units (unknown) date) Acct:[id number] unknown) (unknown) (no (unknown) (unknown) Date of Service: (units (unknown) date) 09/16/22 unknown) (unknown) (no (unknown) (unknown) Date of (units (unkno wn) date) admission: unknown) (unknown) (no (unknown) (unknown) Deep Vein (units (unkn own) date) Thrombosis/Pulmona unknown) ry Embolism Present on Admission: No (unknown) (no (unknown) (unknown) Discharge Data (units (unknown) date) unknown) (unknown) (no (unknown) (unknown) Discharge (units (unkn own) date) Diagnosis: unknown) (unknown) (no (unknown) (unknown) Discharge Plan (units (unknown) date) unknown) (unknown) (no (unknown) (unknown) Discharge (units (unkn own) date) Providers unknown) (unknown) (no (unknown) (unknown) Discharge Summary (units (unknown) date) unknown) (unknown) (no (unknown) (unknown) Discharge orders (units (unknown) date) + Medications unknown) (unknown) (no (unknown) (unknown) Discharge (units (unkn own) date) provider: unknown) (unknown) (no (unknown) (unknown) Eliquis 2.5 mg (units (unknown) date) tablet unknown) (unknown) (no (unknown) (unknown) Exam (units (unkno wn) date) unknown) (unknown) (no (unknown) (unknown) Family History (units (unknown) date) (Updated 09/17/22 unknown) @ 07:47 [facility] (unknown) (no (unknown) (unknown) Father (units (unknown) date) Congestive heart unknown) failure (unknown) (no (unknown) (unknown) Follow (units (unkno wn) date) up/Referrals: unknown) (unknown) (no (unknown) (unknown) Fraction of (units (un known) date) Inspired Oxygen 28 unknown) (unknown) (no (unknown) (unknown) HTN, HLD, CAD, (units ( unknown) date) 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 (unknown) (no (unknown) (unknown) Has provider been (units (unknown) date) notified: Yes unknown) (unknown) (no (unknown) (unknown) 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) (unknown) (no (unknown) (unknown) History of (units (unk nown) date) Present Illness unknown) (unknown) (no (unknown) (unknown) History of (units (unk nown) date) coronary artery unknown) stent placement (unknown) (no (unknown) (unknown) History of (units (unk nown) date) laminectomy unknown) (unknown) (no (unknown) (unknown) 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 (unknown) (no (unknown) (unknown) Hospital Course (units (unknown) date) unknown) (unknown) (no (unknown) (unknown) Hyperlipidemia (units (unknown) date) unknown) (unknown) (no (unknown) (unknown) Hypertension (units (u nknown) date) unknown) (unknown) (no (unknown) (unknown) Intermittent (units (u nknown) date) self-catheterizati unknown) on of bladder (unknown) (no (unknown) (unknown) [facility] (units (unknown) date) [address] unknown) [place] [address] (unknown) (no (unknown) (unknown) Vanessa Krishnamurthy, DO (units (unknown) date) unknown) (unknown) (no (unknown) (unknown) Labs (units (unkno wn) date) unknown) (unknown) (no (unknown) (unknown) Medical History (units (unknown) date) (Reviewed 09/18/22 unknown) @ 07:15 by Rojelio Henning MD) (unknown) (no (unknown) (unknown) Mother (units (unknown) date) Cancer unknown) (unknown) (no (unknown) (unknown) Narrative: (units (unk nown) date) unknown) (unknown) (no (unknown) (unknown) Izabella Serrano, (units (unknown) date) DOCUMENT COORDINATOR-BC unknown) (unknown) (no (unknown) (unknown) No Action (units (unkn own) date) unknown) (unknown) (no (unknown) (unknown) Objective (units (unkn own) date) unknown) (unknown) (no (unknown) (unknown) Oxygen Delivery (units (unknown) date) Method Nasal unknown) Cannula (unknown) (no (unknown) (unknown) Oxygen Flow Rate (units (unknown) date) 2 unknown) (unknown) (no (unknown) (unknown) PFSH (units (unkno wn) date) unknown) (unknown) (no (unknown) (unknown) Pacemaker (units (unkn own) date) unknown) (unknown) (no (unknown) (unknown) 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) (unknown) (no (unknown) (unknown) Patient at he had (units (unknown) date) been using walker unknown) or crutches and was able to perform (unknown) (no (unknown) (unknown) Patient: (units (unkno wn) date) Armani Cheema L unknown) MR#: [id number] (unknown) (no (unknown) (unknown) Physician (units (unkn own) date) Instructions: unknown) Evaluate and Treat (unknown) (no (unknown) (unknown) Physician (units (unkn own) date) Instructions: unknown) Evaluate and treat (unknown) (no (unknown) (unknown) Prescriptions: (units (unknown) date) unknown) (unknown) (no (unknown) (unknown) Primary Care (units (u nknown) date) Provider: unknown) Vanessa Krishnamurthy (unknown) (no (unknown) (unknown) Primary care (units (u nknown) date) physician: unknown) (unknown) (no (unknown) (unknown) Provider (units (unkno wn) date) Discharge Comment: unknown) follow up with wound care clinic. No need for gen (unknown) (no (unknown) (unknown) Provider (units (unkno wn) date) unknown) (unknown) (no (unknown) (unknown) Provider: (units (unkn own) date) Izabella Serrano unknown) DOCUMENT COORDINATOR-BC (unknown) (no (unknown) (unknown) Pulse Oximetry 93 (units (unknown) date) unknown) (unknown) (no (unknown) (unknown) Pulse Rate 66 (units ( unknown) date) unknown) (unknown) (no (unknown) (unknown) Quality (units (unkno wn) date) unknown) (unknown) (no (unknown) (unknown) Reason For Exam: (units (unknown) date) Decubitus ulcer unknown) BMI 44.3 (unknown) (no (unknown) (unknown) Reason for (units (unk nown) date) consultation: unknown) Sacral decubitus ulcer (unknown) (no (unknown) (unknown) Respiratory Rate (units (unknown) date) 20 unknown) (unknown) (no (unknown) (unknown) Result Diagrams: (units (unknown) date) unknown) (unknown) (no (unknown) (unknown) Vanessa Krishnamurthy DO (units (unknown) date) [Primary Care unknown) Provider] (unknown) (no (unknown) (unknown) Signed By: (units (unk nown) date) unknown) (unknown) (no (unknown) (unknown) Smoking Status: (units (unknown) date) Never smoker unknown) (unknown) (no (unknown) (unknown) Social History (units (unknown) date) unknown) (unknown) (no (unknown) (unknown) 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, incomplete unknown) (unknown) (no (unknown) (unknown) Summary (units (unkno wn) date) unknown) (unknown) (no (unknown) (unknown) Surgical History (units (unknown) date) (Reviewed 09/18/22 unknown) @ 07:15 by Rojelio Henning MD) (unknown) (no (unknown) (unknown) Surrogate (units (unkn own) date) decision maker:? unknown) Bhavna who is spouse (unknown) (no (unknown) (unknown) Temperature 97.3 (units (unknown) date) F L unknown) (unknown) (no (unknown) (unknown) VTE (units (unkno wn) date) unknown) (unknown) (no (unknown) (unknown) Vital Signs (units (un known) date) unknown) (unknown) (no (unknown) (unknown) [facility] due to (units (unknown) date) lack of placement unknown) since September 03, 2022 Diagnosed with sacral (unknown) (no (unknown) (unknown) [Embedded Image (units (unknown) date) Not Available] unknown) (unknown) (no (unknown) (unknown) active. (units (unkno wn) date) unknown) (unknown) (no (unknown) (unknown) admitted but (units (u nknown) date) remained in the ED unknown) for approximately 10 days where he was boarding (unknown) (no (unknown) (unknown) albuterol sulfate (units (unknown) date) [ProAir HFA] 90 unknown) mcg/actuation HFA aerosol inhaler (unknown) (no (unknown) (unknown) and a group B (units ( unknown) date) strep. unknown) (unknown) (no (unknown) (unknown) atorvastatin 40 (units (unknown) date) mg tablet unknown) (unknown) (no (unknown) (unknown) bilateral (units (unkn own) date) buttocks, right unknown) penile shaft lesion wound likely associated with (unknown) (no (unknown) (unknown) carvedilol (units (unk nown) date) [Coreg] 25 MG unknown) tablet (unknown) (no (unknown) (unknown) catheterization (units (unknown) date) secondary to unknown) spinal cord injury, acute on chronic, right-sided (unknown) (no (unknown) (unknown) chronic (units (unkno wn) date) indwelling Schaeffer unknown) catheter use at bedtime, and a left lateral malleolus (unknown) (no (unknown) (unknown) complaints and (units (unknown) date) has no specific unknown) pain with minimal sensation to the area of the (unknown) (no (unknown) (unknown) continuing (units (unkn own) date) worsening unknown) weakness-the patient then went to would be Hospital was not (unknown) (no (unknown) (unknown) cough, chills, (units (unknown) date) abdominal pain, unknown) vomiting, body aches, chills, diarrhea, blood in (unknown) (no (unknown) (unknown) currently. (units (unk nown) date) unknown) (unknown) (no (unknown) (unknown) decubitus ulcer, (units (unknown) date) UTI. Schaeffer was unknown) placed on admit today in the ED. Dr. Bermudez (unknown) (no (unknown) (unknown) deterioration,, (units (unknown) date) frequent falls), unknown) acute on chronic, present on admission and (unknown) (no (unknown) (unknown) dietary, (units (unkno wn) date) lifestyle, unknown) exercise, and weight changes. (unknown) (no (unknown) (unknown) discharged to (units ( unknown) date) [facility] and unknown) resided in [facility] until he ran out of coverage (unknown) (no (unknown) (unknown) follow-up (units (unkn own) date) appointment unknown) . When patient was examined by home health nurse (unknown) (no (unknown) (unknown) for insurance and (units (unknown) date) then was sent home unknown) he was unable to function home CAD (unknown) (no (unknown) (unknown) furosemide 40 mg (units (unknown) date) tablet unknown) (unknown) (no (unknown) (unknown) gabapentin 600 mg (units (unknown) date) tablet unknown) (unknown) (no (unknown) (unknown) household (units (unkn own) date) members: spouse unknown) (unknown) (no (unknown) (unknown) in progressive (units (unknown) date) leg weakness and unknown) right leg only. (unknown) (no (unknown) (unknown) in the (units (unkno wn) date) unknown) (unknown) (no (unknown) (unknown) increasing (units (unk nown) date) bilateral lower unknown) leg weakness. Patient admitted to the [facility] following 5 (unknown) (no (unknown) (unknown) independent ADLs (units (unknown) date) until unknown) approximately 3-4 months ago when he started to have (unknown) (no (unknown) (unknown) infection), (units (un known) date) intermittent unknown) catheterization during day + Schaeffer nightly patient was (unknown) (no (unknown) (unknown) lidocaine 5 % (units ( unknown) date) adhesive unknown) patch,medicated (unknown) (no (unknown) (unknown) lipase, (units (unkno wn) date) procalcitonin unknown) COVID are all negative. Patient's urinalysis positive for (unknown) (no (unknown) (unknown) nitrates and (units (un known) date) bacteria culture unknown) pending, sofa score 0, EKG sinus rhythm rate of 73 (unknown) (no (unknown) (unknown) nonspecific ST (units (unknown) date) and T-wave unknown) changes. CT of abdomen pelvis demonstrate posterior (unknown) (no (unknown) (unknown) oxygen at home. (units (unknown) date) WBC 12.3, unknown) neutrophils 7400, eos 500, baso 200, H+H 12.9/40, MCV (unknown) (no (unknown) (unknown) pacemaker on (units (u nknown) date) chronic unknown) anticoagulation, present on admission (unknown) (no (unknown) (unknown) pain, shortness (units (unknown) date) in breath. unknown) (unknown) (no (unknown) (unknown) patient's obesity (units (unknown) date) increases the unknown) difficulty and complexity of medical and/or (unknown) (no (unknown) (unknown) penile ulceration (units (unknown) date) stage II, acute,? unknown) present on admission and active. (unknown) (no (unknown) (unknown) present on (units (unk nown) date) admission and unknown) active. (unknown) (no (unknown) (unknown) present on (units (unk nown) date) admission unknown) (unknown) (no (unknown) (unknown) region of the (units ( unknown) date) coccyx and lower unknown) sacral area. Patient admitted for sacral (unknown) (no (unknown) (unknown) reports that he (units (unknown) date) was treated for unknown) right leg edema started Lasix and then (unknown) (no (unknown) (unknown) sacral ulceration (units (unknown) date) with cellulitis unknown) changes and inflammation extending to the (unknown) (no (unknown) (unknown) sacrum and unable (units (unknown) date) to walk due to unknown) nerve injury.? He does not report fevers, (unknown) (no (unknown) (unknown) serious falls, (units ( unknown) date) resulting in unknown) worsening weakness, worsening right leg pain, losing (unknown) (no (unknown) (unknown) she immediately (units (unknown) date) called 911 for unknown) transport to [facility]. He has no specific (unknown) (no (unknown) (unknown) start at the [facility], (units (unknown) date) paperwork to be unknown) ready for this). (unknown) (no (unknown) (unknown) such as morbidity (units (unknown) date) and mortality as unknown) well as impaired wound healing.? (unknown) (no (unknown) (unknown) surg follow up (units (unknown) date) unknown) (unknown) (no (unknown) (unknown) surgical (units (unkno wn) date) interventions, unknown) management and increases the chances of poor outcome (unknown) (no (unknown) (unknown) the ability to (units (unknown) date) perform ADLs and unknown) become completely wheelchair-bound. Patient (unknown) (no (unknown) (unknown) tissue appeared (units (unknown) date) to be in unknown) superficial layers only. (unknown) (no (unknown) (unknown) to consult-plan (units (unknown) date) to take to the OR unknown) for debridement (unknown) (no (unknown) (unknown) to obesity as it (units (unknown) date) relates to chronic unknown) illnesses:, and acute illness.? The (unknown) (no (unknown) (unknown) transported (units (un known) date) following home unknown) nurse visit evaluation of a sacral decubitus ulcer. (unknown) (no (unknown) (unknown) urine or stool, (units (unknown) date) does have dysuria, unknown) notes chronic low back pain, denies chest (unknown) (no (unknown) (unknown) with wound vac (units (unknown) date) -will be unknown) transferred for wet-to-dry dressing and wound VAC will (unknown) (no (unknown) (unknown) wound 11.5 x 8 x (units (unknown) date) 0.1 unstageable unknown) pressure injury covering the sacral region (unknown) (no (unknown) (unknown) wound stage 2, (units (unknown) date) patient was sent unknown) home on Augmentin discharged -scheduled Result panel 86 (unknown) (no (unknown) (unknown) (no value) (units (unk nown) date) unknown) (unknown) (no (unknown) (unknown) (past 8 hours): (units (unknown) date) unknown) (unknown) (no (unknown) (unknown) (reported (units (unkn own) date) secondary to unknown) laminectomy in 2002 that resulted in spinal Staph (unknown) (no (unknown) (unknown) - Continue PT, OT (units (unknown) date) unknown) (unknown) (no (unknown) (unknown) -Antibiotics as (units (unknown) date) noted above. unknown) (unknown) (no (unknown) (unknown) -Dr. Bermudez ,? (units (unknown) date) OR for debridement unknown) performed couple of days ago. Necrotic (unknown) (no (unknown) (unknown) -EKG sinus rhythm (units (unknown) date) rate 73 with unknown) nonspecific ST and T-wave changes (unknown) (no (unknown) (unknown) -Schaeffer in (units (unkn own) date) place?(chronic) unknown) (unknown) (no (unknown) (unknown) -No DVT on (units (unk nown) date) ultrasound. unknown) (unknown) (no (unknown) (unknown) -PT/OT evaluation (units (unknown) date) completed unknown) (unknown) (no (unknown) (unknown) -antibiotics (units (u nknown) date) narrowed to unknown) augmentin based on wound culture results with proteus (unknown) (no (unknown) (unknown) -continue Coreg (units (unknown) date) and lisinopril. unknown) (unknown) (no (unknown) (unknown) -continue (units (unkn own) date) lidocaine patches, unknown) gabapentin (unknown) (no (unknown) (unknown) -continue (units (unkn own) date) simvastatin unknown) changed to atorvastatin for hospital formulary. (unknown) (no (unknown) (unknown) -dietary consult (units (unknown) date) ordered regarding unknown) nutritional education and information for (unknown) (no (unknown) (unknown) -discharge (units (unk nown) date) patient is being unknown) transferred to [facility] on a regular (unknown) (no (unknown) (unknown) -erythema (units (unkn own) date) resolved no sign unknown) lower extremity wounds, edema nonpitting +1 appears (unknown) (no (unknown) (unknown) -schaeffer (he uses (units (unknown) date) self cath and unknown) nocturnal schaeffer at home) (unknown) (no (unknown) (unknown) -held Lasix due (units (unknown) date) to chronically low unknown) BP, mild right lower leg edema noted (unknown) (no (unknown) (unknown) -no previous (units (u nknown) date) documentation in unknown) our system (unknown) (no (unknown) (unknown) -pain (units (unkno wn) date) management,? 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 (units (unknown) date) unknown) (unknown) (no (unknown) (unknown) -the patient is (units (unknown) date) at much higher unknown) risk for medical and surgical complications due (unknown) (no (unknown) (unknown) -troponins (units (unk nown) date) negative. unknown) (unknown) (no (unknown) (unknown) 09/16/22 17:37 (units (unknown) date) unknown) (unknown) (no (unknown) (unknown) 09/16/22 22:48 (units (unknown) date) unknown) (unknown) (no (unknown) (unknown) 09/17/22 04:00 (units (unknown) date) unknown) (unknown) (no (unknown) (unknown) 09/17/22 04:01 (units (unknown) date) unknown) (unknown) (no (unknown) (unknown) 09/17/22 04:11 (units (unknown) date) unknown) (unknown) (no (unknown) (unknown) 09/19/22 05:06 (units (unknown) date) unknown) (unknown) (no (unknown) (unknown) 09/23/22 (units (unkno wn) date) unknown) (unknown) (no (unknown) (unknown) [id number] (units (unkno wn) date) unknown) (unknown) (no (unknown) (unknown) 04:00 (units (unkno wn) date) unknown) (unknown) (no (unknown) (unknown) 1 patch (units (unkno wn) date) transdermal Q12H unknown) PRN (Reason: Pain, Mild) (unknown) (no (unknown) (unknown) 1 puff INHALATION (units (unknown) date) PRN PRN (Reason: unknown) Wheezing) (unknown) (no (unknown) (unknown) 1. Sacral (units (unkn own) date) decubitus ulcer unknown) acute, in an incomplete SCI paraplegic, chronic, (unknown) (no (unknown) (unknown) 18, O2 saturation (units (unknown) date) 95% on room unknown) air-the patient states that he does not require (unknown) (no (unknown) (unknown) 2. UTI, (units (unkno wn) date) associated with unknown) chronic indwelling catheter. Intermittent self (unknown) (no (unknown) (unknown) 2.5 mg PO BID (units ( unknown) date) unknown) (unknown) (no (unknown) (unknown) 25 mg PO BID Qty: (units (unknown) date) 0 unknown) (unknown) (no (unknown) (unknown) 3. 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 Congestive (units ( unknown) date) heart failure (No unknown) ECHO available), chronic, with a history of MN (unknown) (no (unknown) (unknown) 40 mg PO DAILY (units (unknown) date) unknown) (unknown) (no (unknown) (unknown) 5 falls resulting (units (unknown) date) in progressive leg unknown) weakness and right leg only. (unknown) (no (unknown) (unknown) 5. Right leg (units (u nknown) date) edema, with unknown) erythema, acute, present on admission and improving. (unknown) (no (unknown) (unknown) 6. Hypertension (units (unknown) date) essential,? unknown) present on admission and stable. (unknown) (no (unknown) (unknown) 600 mg PO TID (units ( unknown) date) unknown) (unknown) (no (unknown) (unknown) 7. Chronic low (units (unknown) date) back, present on unknown) admission and stable. (unknown) (no (unknown) (unknown) 77.4, MCH 24.7, (units (unknown) date) platelets 407, unknown) bicarb 33, alk-phos 148, INR stable 1.3, lactate, (unknown) (no (unknown) (unknown) 8. (units (unkno wn) date) Hyperlipidemia,? unknown) present on admission and stable. (unknown) (no (unknown) (unknown) 9. Morbid obesity (units (unknown) date) secondary to unknown) incomplete SCI paraplegic, acute on chronic, (unknown) (no (unknown) (unknown) ?-as evidence by (units (unknown) date) BMI 44.3 unknown) (unknown) (no (unknown) (unknown) Age/Sex: 81 / M (units (unknown) date) unknown) (unknown) (no (unknown) (unknown) At the time of (units ( unknown) date) admit patient's unknown) vitals are stable temp 98.2?, BP 131/58, HR 76, R (unknown) (no (unknown) (unknown) Blood Pressure (units (unknown) date) 90/54 L unknown) (unknown) (no (unknown) (unknown) Kalen Meza P, (units (unknown) date) [Physician] unknown) (unknown) (no (unknown) (unknown) COVID PCR:? (units (un known) date) Negative unknown) (unknown) (no (unknown) (unknown) Chief complaint: (units (unknown) date) pressure sore unknown) (unknown) (no (unknown) (unknown) Chronic (units (unkno wn) date) anticoagulation unknown) (unknown) (no (unknown) (unknown) Chronic (units (unkno wn) date) indwelling Schaeffer unknown) catheter (unknown) (no (unknown) (unknown) Armani Cheema is (units (unknown) date) an 81-year-old unknown) male CHF, MN stent x2, pacer on chronic Eliquis, (unknown) (no (unknown) (unknown) Armani Gamboa is (units (unknown) date) an 81-year-old unknown) male admitted for an acute sacral decubitus (unknown) (no (unknown) (unknown) Code status:Full (units (unknown) date) unknown) (unknown) (no (unknown) (unknown) Cognitive/behavio (units (unknown) date) ral status at unknown) discharge: oriented (unknown) (no (unknown) (unknown) Comment: (units (unkno wn) date) Decubitus ulcer, unknown) incomplete paraplegic (unknown) (no (unknown) (unknown) Comment: Sacral (units (unknown) date) decubiti, right unknown) penile shaft wound, rt ashraf (unknown) (no (unknown) (unknown) Comment: (units (unkno wn) date) unknown) (unknown) (no (unknown) (unknown) Congestive heart (units (unknown) date) failure unknown) (unknown) (no (unknown) (unknown) Consult to (units (unk nown) date) Dietitian, Adult unknown) Routine (unknown) (no (unknown) (unknown) 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 (unknown) (no (unknown) (unknown) Consult to (units (unk nown) date) Occupational unknown) Therapy Evaluate + Treat (unknown) (no (unknown) (unknown) Consult to (units (unk nown) date) Physical Therapy unknown) Evaluate + Treat (unknown) (no (unknown) (unknown) Consult to (units (unk nown) date) Physician Routine unknown) (unknown) (no (unknown) (unknown) Consult to Wound (units (unknown) date) Care Urgent unknown) (unknown) (no (unknown) (unknown) Consulting (units (unk nown) date) Provider: unknown) Jacquelyn Bermudez (unknown) (no (unknown) (unknown) Consulting (units (unk nown) date) Provider: unknown) [facility] (unknown) (no (unknown) (unknown) Consults: (units (unkn own) date) unknown) (unknown) (no (unknown) (unknown) Coronary artery (units (unknown) date) disease unknown) (unknown) (no (unknown) (unknown) : 1940 (units (unknown) date) Acct:[id number] unknown) (unknown) (no (unknown) (unknown) Date of Service: (units (unknown) date) 09/16/22 unknown) (unknown) (no (unknown) (unknown) Date of (units (unkno wn) date) admission: unknown) (unknown) (no (unknown) (unknown) Deep Vein (units (unkn own) date) Thrombosis/Pulmona unknown) ry Embolism Present on Admission: No (unknown) (no (unknown) (unknown) Discharge Data (units (unknown) date) unknown) (unknown) (no (unknown) (unknown) Discharge (units (unkn own) date) Diagnosis: unknown) (unknown) (no (unknown) (unknown) Discharge Plan (units (unknown) date) unknown) (unknown) (no (unknown) (unknown) Discharge (units (unkn own) date) Providers unknown) (unknown) (no (unknown) (unknown) Discharge Summary (units (unknown) date) unknown) (unknown) (no (unknown) (unknown) Discharge orders (units (unknown) date) + Medications unknown) (unknown) (no (unknown) (unknown) Discharge (units (unkn own) date) provider: unknown) (unknown) (no (unknown) (unknown) Eliquis 2.5 mg (units (unknown) date) tablet unknown) (unknown) (no (unknown) (unknown) Exam (units (unkno wn) date) unknown) (unknown) (no (unknown) (unknown) Family History (units (unknown) date) (Updated 09/17/22 unknown) @ 07:47 by Izabella Serrano [facility]) (unknown) (no (unknown) (unknown) Father (units (unknown) date) Congestive heart unknown) failure (unknown) (no (unknown) (unknown) Follow (units (unkno wn) date) up/Referrals: unknown) (unknown) (no (unknown) (unknown) Fraction of (units (un known) date) Inspired Oxygen 28 unknown) (unknown) (no (unknown) (unknown) Functional status (units (unknown) date) at discharge: bed unknown) bound (unknown) (no (unknown) (unknown) HTN, HLD, CAD, (units ( unknown) date) 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 (unknown) (no (unknown) (unknown) Has provider been (units (unknown) date) notified: Yes unknown) (unknown) (no (unknown) (unknown) 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) (unknown) (no (unknown) (unknown) History of (units (unk nown) date) Present Illness unknown) (unknown) (no (unknown) (unknown) History of (units (unk nown) date) coronary artery unknown) stent placement (unknown) (no (unknown) (unknown) History of (units (unk nown) date) laminectomy unknown) (unknown) (no (unknown) (unknown) 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 (unknown) (no (unknown) (unknown) Hospital Course (units (unknown) date) unknown) (unknown) (no (unknown) (unknown) Hospital Course: (units (unknown) date) unknown) (unknown) (no (unknown) (unknown) Hyperlipidemia (units (unknown) date) unknown) (unknown) (no (unknown) (unknown) Hypertension (units (u nknown) date) unknown) (unknown) (no (unknown) (unknown) Intermittent (units (u nknown) date) self-catheterizati unknown) on of bladder (unknown) (no (unknown) (unknown) [facility] (units (unknown) date) [address] unknown) [place] [id number] (unknown) (no (unknown) (unknown) Judye Scheidt, DO (units (unknown) date) unknown) (unknown) (no (unknown) (unknown) Labs (units (unkno wn) date) unknown) (unknown) (no (unknown) (unknown) Medical History (units (unknown) date) (Reviewed 09/18/22 unknown) @ 07:15 by Rojelio Henning MD) (unknown) (no (unknown) (unknown) Mother (units (unknown) date) Cancer unknown) (unknown) (no (unknown) (unknown) Narrative: (units (unk nown) date) unknown) (unknown) (no (unknown) (unknown) Izabella Zach, (units (unknown) date) DOCUMENT COORDINATOR-BC unknown) (unknown) (no (unknown) (unknown) No Action (units (unkn own) date) unknown) (unknown) (no (unknown) (unknown) Objective (units (unkn own) date) unknown) (unknown) (no (unknown) (unknown) Overall status at (units (unknown) date) discharge: other unknown) (Patient requires long-term wound care (unknown) (no (unknown) (unknown) Oxygen Delivery (units (unknown) date) Method Nasal unknown) Cannula (unknown) (no (unknown) (unknown) Oxygen Flow Rate (units (unknown) date) 2 unknown) (unknown) (no (unknown) (unknown) PFSH (units (unkno wn) date) unknown) (unknown) (no (unknown) (unknown) Pacemaker (units (unkn own) date) unknown) (unknown) (no (unknown) (unknown) 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) (unknown) (no (unknown) (unknown) Patient at he had (units (unknown) date) been using walker unknown) or crutches and was able to perform (unknown) (no (unknown) (unknown) Patient was (units (un known) date) placed on a wound unknown) VAC, which will be removed, wet-to-dry dressing (unknown) (no (unknown) (unknown) Patient: (units (unkno wn) date) Armani Cheema L unknown) MR#: [id number] (unknown) (no (unknown) (unknown) Physician (units (unkn own) date) Instructions: unknown) Evaluate and Treat (unknown) (no (unknown) (unknown) Physician (units (unkn own) date) Instructions: unknown) Evaluate and treat (unknown) (no (unknown) (unknown) Prescriptions: (units (unknown) date) unknown) (unknown) (no (unknown) (unknown) Primary Care (units (u nknown) date) Provider: unknown) Vanessa Krishnamurthy (unknown) (no (unknown) (unknown) Primary care (units (u nknown) date) physician: unknown) (unknown) (no (unknown) (unknown) Provider (units (unkno wn) date) Discharge Comment: unknown) follow up with wound care clinic. No need for gen (unknown) (no (unknown) (unknown) Provider (units (unkno wn) date) unknown) (unknown) (no (unknown) (unknown) Provider: (units (unkn own) date) Izabella Serrano unknown) DOCUMENT COORDINATOR-BC (unknown) (no (unknown) (unknown) Pulse Oximetry 93 (units (unknown) date) unknown) (unknown) (no (unknown) (unknown) Pulse Rate 66 (units ( unknown) date) unknown) (unknown) (no (unknown) (unknown) Quality (units (unkno wn) date) unknown) (unknown) (no (unknown) (unknown) Reason For Exam: (units (unknown) date) Decubitus ulcer unknown) BMI 44.3 (unknown) (no (unknown) (unknown) Reason for (units (unk nown) date) consultation: unknown) Sacral decubitus ulcer (unknown) (no (unknown) (unknown) Respiratory Rate (units (unknown) date) 20 unknown) (unknown) (no (unknown) (unknown) Result Diagrams: (units (unknown) date) unknown) (unknown) (no (unknown) (unknown) Vanessa Krishnamurthy, (units (unknown) date) [Primary Care unknown) Provider] (unknown) (no (unknown) (unknown) Signed By: (units (unk nown) date) unknown) (unknown) (no (unknown) (unknown) Smoking Status: (units (unknown) date) Never smoker unknown) (unknown) (no (unknown) (unknown) Social History (units (unknown) date) unknown) (unknown) (no (unknown) (unknown) 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, incomplete unknown) (unknown) (no (unknown) (unknown) Status at (units (unkn own) date) Discharge unknown) (unknown) (no (unknown) (unknown) Summary (units (unkno wn) date) unknown) (unknown) (no (unknown) (unknown) Surgical History (units (unknown) date) (Reviewed 09/18/22 unknown) @ 07:15 by Rojelio Henning MD) (unknown) (no (unknown) (unknown) Surrogate (units (unkn own) date) decision maker:? unknown) Bhavna who is spouse (unknown) (no (unknown) (unknown) Temperature 97.3 (units (unknown) date) F L unknown) (unknown) (no (unknown) (unknown) Time Spent with (units (unknown) date) Patient unknown) (unknown) (no (unknown) (unknown) Time spent: Less (units (unknown) date) than 30 minutes unknown) (unknown) (no (unknown) (unknown) VTE (units (unkno wn) date) unknown) (unknown) (no (unknown) (unknown) Vital Signs (units (un known) date) unknown) (unknown) (no (unknown) (unknown) [facility] ED due to (units (unknown) date) lack of placement unknown) since September 03, 2022 Diagnosed with sacral (unknown) (no (unknown) (unknown) [Embedded Image (units (unknown) date) Not Available] unknown) (unknown) (no (unknown) (unknown) active. (units (unkno wn) date) unknown) (unknown) (no (unknown) (unknown) admitted but (units (u nknown) date) remained in the ED unknown) for approximately 10 days where he was boarding (unknown) (no (unknown) (unknown) albuterol sulfate (units (unknown) date) [ProAir HFA] 90 unknown) mcg/actuation HFA aerosol inhaler (unknown) (no (unknown) (unknown) and a group B (units ( unknown) date) strep. unknown) (unknown) (no (unknown) (unknown) appeared to be in (units (unknown) date) superficial layers unknown) only. Placed on augmentin based on wound (unknown) (no (unknown) (unknown) atorvastatin 40 (units (unknown) date) mg tablet unknown) (unknown) (no (unknown) (unknown) bilateral (units (unkn own) date) buttocks, right unknown) penile shaft lesion wound likely associated with (unknown) (no (unknown) (unknown) carvedilol (units (unk nown) date) [Coreg] 25 MG unknown) tablet (unknown) (no (unknown) (unknown) catheterization (units (unknown) date) secondary to unknown) spinal cord injury, acute on chronic, right-sided (unknown) (no (unknown) (unknown) chronic for (units (un known) date) patient's baseline unknown) s/p knee surgery. (unknown) (no (unknown) (unknown) chronic (units (unkno wn) date) indwelling Schaeffer unknown) catheter use at bedtime, and a left lateral malleolus (unknown) (no (unknown) (unknown) complaints and (units (unknown) date) has no specific unknown) pain with minimal sensation to the area of the (unknown) (no (unknown) (unknown) continuing (units (unkn own) date) worsening unknown) weakness-the patient then went to would be Hospital was not (unknown) (no (unknown) (unknown) cough, chills, (units (unknown) date) abdominal pain, unknown) vomiting, body aches, chills, diarrhea, blood in (unknown) (no (unknown) (unknown) culture results (units (unknown) date) with proteus and a unknown) group B strep and coverage of UTI, continued. (unknown) (no (unknown) (unknown) decubitus ulcer, (units (unknown) date) UTI. Schaeffer was unknown) placed on admit today in the ED. Dr. Bermudez (unknown) (no (unknown) (unknown) deterioration,, (units (unknown) date) frequent falls), unknown) acute on chronic, present on admission and (unknown) (no (unknown) (unknown) diet, patient's (units (unknown) date) wound VAC will be unknown) removed and changed to a wet-to-dry dressing (unknown) (no (unknown) (unknown) dietary, (units (unkno wn) date) lifestyle, unknown) exercise, and weight changes. (unknown) (no (unknown) (unknown) discharged to (units ( unknown) date) [facility] and unknown) resided [facility] until he ran out of coverage (unknown) (no (unknown) (unknown) erythema resolved (units (unknown) date) unknown) (unknown) (no (unknown) (unknown) follow-up (units (unkn own) date) appointment unknown) . When patient was examined by home health nurse (unknown) (no (unknown) (unknown) for insurance and (units (unknown) date) then was sent home unknown) he was unable to function home CAD (unknown) (no (unknown) (unknown) [place] [facility] (units ( unknown) date) wound care. 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 [facility] ([facility]) (no (unknown) (unknown) independent ADLs (units (unknown) date) until unknown) approximately 3-4 months ago when he started to have (unknown) (no (unknown) (unknown) infection), (units (un known) date) intermittent unknown) catheterization during day + Schaeffer nightly patient was (unknown) (no (unknown) (unknown) lidocaine 5 % (units ( unknown) date) adhesive unknown) patch,medicated (unknown) (no (unknown) (unknown) lipase, (units (unkno wn) date) procalcitonin unknown) COVID are all negative. Patient's urinalysis positive for (unknown) (no (unknown) (unknown) management, as (units (unknown) date) well as physical unknown) therapy due to decreased mobility and falls (unknown) (no (unknown) (unknown) nitrates and (units (un known) date) bacteria culture unknown) pending, sofa score 0, EKG sinus rhythm rate of 73 (unknown) (no (unknown) (unknown) nonspecific ST (units (unknown) date) and T-wave unknown) changes. CT of abdomen pelvis demonstrate posterior (unknown) (no (unknown) (unknown) oxygen at home. (units (unknown) date) WBC 12.3, unknown) neutrophils 7400, eos 500, baso 200, H+H 12.9/40, MCV (unknown) (no (unknown) (unknown) pacemaker on (units (u nknown) date) chronic unknown) anticoagulation, present on admission (unknown) (no (unknown) (unknown) pain, shortness (units (unknown) date) in breath. unknown) (unknown) (no (unknown) (unknown) patient's obesity (units (unknown) date) increases the unknown) difficulty and complexity of medical and/or (unknown) (no (unknown) (unknown) penile ulceration (units (unknown) date) stage II, acute,? unknown) present on admission and active. (unknown) (no (unknown) (unknown) present on (units (unk nown) date) admission and unknown) active. (unknown) (no (unknown) (unknown) present on (units (unk nown) date) admission unknown) (unknown) (no (unknown) (unknown) region of the (units ( unknown) date) coccyx and lower unknown) sacral area. Patient admitted for sacral (unknown) (no (unknown) (unknown) reports that he (units (unknown) date) was treated for unknown) right leg edema started Lasix and then (unknown) (no (unknown) (unknown) sacral ulceration (units (unknown) date) with cellulitis unknown) changes and inflammation extending to the (unknown) (no (unknown) (unknown) sacrum and unable (units (unknown) date) to walk due to unknown) nerve injury.? He does not report fevers, (unknown) (no (unknown) (unknown) secondary to (units (u nknown) date) deteriorating unknown) paraplegic.) (unknown) (no (unknown) (unknown) serious falls, (units ( unknown) date) resulting in unknown) worsening weakness, worsening right leg pain, losing (unknown) (no (unknown) (unknown) she immediately (units (unknown) date) called 911 for unknown) transport to [facility]. He has no specific (unknown) (no (unknown) (unknown) such as morbidity (units (unknown) date) and mortality as unknown) well as impaired wound healing.? (unknown) (no (unknown) (unknown) surg follow up (units (unknown) date) unknown) (unknown) (no (unknown) (unknown) surgical (units (unkno wn) date) interventions, unknown) management and increases the chances of poor outcome (unknown) (no (unknown) (unknown) the ability to (units (unknown) date) perform ADLs and unknown) become completely wheelchair-bound. Patient (unknown) (no (unknown) (unknown) tissue appeared (units (unknown) date) to be in unknown) superficial layers only. (unknown) (no (unknown) (unknown) to be applied for (units (unknown) date) transport to unknown) [facility] in [place] (unknown) (no (unknown) (unknown) to consult-plan (units (unknown) date) to take to the OR unknown) for debridement (unknown) (no (unknown) (unknown) to obesity as it (units (unknown) date) relates to chronic unknown) illnesses:, and acute illness.? The (unknown) (no (unknown) (unknown) transported (units (un known) date) following home unknown) nurse visit evaluation of a sacral decubitus ulcer. (unknown) (no (unknown) (unknown) ulcer, and UTI (units (unknown) date) -Dr. Bermudez took unknown) to the OR for debridement, Necrotic tissue (unknown) (no (unknown) (unknown) unchanged from (units (unknown) date) admit- december unknown) continue based edema/fluid overload . (unknown) (no (unknown) (unknown) until new wound (units (unknown) date) VAC be placed at unknown) [facility] (which has already been arranged) . (unknown) (no (unknown) (unknown) urine or stool, (units (unknown) date) does have dysuria, unknown) notes chronic low back pain, denies chest (unknown) (no (unknown) (unknown) wound 11.5 x 8 x (units (unknown) date) 0.1 unstageable unknown) pressure injury covering the sacral region (unknown) (no (unknown) (unknown) wound stage 2, (units (unknown) date) patient was sent unknown) home on Augmentin discharged 01/14/-scheduled Result panel 87 (unknown) (no (unknown) (unknown) (no value) (units (unk nown) date) unknown) (unknown) (no (unknown) (unknown) (past 8 hours): (units (unknown) date) unknown) (unknown) (no (unknown) (unknown) (reported (units (unkn own) date) secondary to unknown) laminectomy in 2002 that resulted in spinal Staph (unknown) (no (unknown) (unknown) - Continue PT, OT (units (unknown) date) unknown) (unknown) (no (unknown) (unknown) -Antibiotics as (units (unknown) date) noted above. unknown) (unknown) (no (unknown) (unknown) -Continue (units (unkn own) date) augmentin based on unknown) wound culture results with proteus and a group B (unknown) (no (unknown) (unknown) -Dr. Bermudez ,? (units (unknown) date) OR for debridement unknown) performed couple of days ago. Necrotic (unknown) (no (unknown) (unknown) -Dr. Bermudez S/P (units (unknown) date) I+D unknown) (unknown) (no (unknown) (unknown) -EKG sinus rhythm (units (unknown) date) rate 73 with unknown) nonspecific ST and T-wave changes (unknown) (no (unknown) (unknown) -Schaeffer in (units (unkn own) date) place?(chronic) unknown) (unknown) (no (unknown) (unknown) -No DVT on (units (unk nown) date) ultrasound. unknown) (unknown) (no (unknown) (unknown) -PT/OT evaluation (units (unknown) date) completed unknown) (unknown) (no (unknown) (unknown) -antibiotics (units (u nknown) date) narrowed to unknown) augmentin based on wound culture results with proteus (unknown) (no (unknown) (unknown) -continue Coreg (units (unknown) date) and lisinopril. unknown) (unknown) (no (unknown) (unknown) -continue (units (unkn own) date) lidocaine patches, unknown) gabapentin (unknown) (no (unknown) (unknown) -continue (units (unkn own) date) simvastatin unknown) changed to atorvastatin for hospital formulary. (unknown) (no (unknown) (unknown) -dietary consult (units (unknown) date) ordered regarding unknown) nutritional education and information for (unknown) (no (unknown) (unknown) -discharge (units (unk nown) date) patient is being unknown) transferred to [facility] in [place] on a regular (unknown) (no (unknown) (unknown) -erythema (units (unkn own) date) resolved no sign unknown) lower extremity wounds, edema nonpitting +1 appears (unknown) (no (unknown) (unknown) -schaeffer (he uses (units (unknown) date) self cath and unknown) nocturnal schaeffer at home) (unknown) (no (unknown) (unknown) -held Lasix due (units (unknown) date) to chronically low unknown) BP, mild right lower leg edema noted (unknown) (no (unknown) (unknown) -no previous (units (u nknown) date) documentation in unknown) our system (unknown) (no (unknown) (unknown) -pain (units (unkno wn) date) management,? 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 (units (unknown) date) unknown) (unknown) (no (unknown) (unknown) -the patient is (units (unknown) date) at much higher unknown) risk for medical and surgical complications due (unknown) (no (unknown) (unknown) -troponins (units (unk nown) date) negative. unknown) (unknown) (no (unknown) (unknown) 09/16/22 17:37 (units (unknown) date) unknown) (unknown) (no (unknown) (unknown) 09/16/22 22:48 (units (unknown) date) unknown) (unknown) (no (unknown) (unknown) 09/17/22 04:00 (units (unknown) date) unknown) (unknown) (no (unknown) (unknown) 09/17/22 04:01 (units (unknown) date) unknown) (unknown) (no (unknown) (unknown) 09/17/22 04:11 (units (unknown) date) unknown) (unknown) (no (unknown) (unknown) 09/19/22 05:06 (units (unknown) date) unknown) (unknown) (no (unknown) (unknown) 09/23/22 (units (unkno wn) date) unknown) (unknown) (no (unknown) (unknown) [id number] (units (unkno wn) date) unknown) (unknown) (no (unknown) (unknown) 04:00 (units (unkno wn) date) unknown) (unknown) (no (unknown) (unknown) 1 patch (units (unkno wn) date) transdermal Q12H unknown) PRN (Reason: Pain, Mild) (unknown) (no (unknown) (unknown) 1 puff INHALATION (units (unknown) date) PRN PRN (Reason: unknown) Wheezing) (unknown) (no (unknown) (unknown) 1. Sacral (units (unkn own) date) decubitus ulcer unknown) acute, in an incomplete SCI paraplegic, chronic, (unknown) (no (unknown) (unknown) 18, O2 saturation (units (unknown) date) 95% on room unknown) air-the patient states that he does not require (unknown) (no (unknown) (unknown) 2. UTI, (units (unkno wn) date) associated with unknown) chronic indwelling catheter. Intermittent self (unknown) (no (unknown) (unknown) 2.5 mg PO BID (units ( unknown) date) unknown) (unknown) (no (unknown) (unknown) 25 mg PO BID Qty: (units (unknown) date) 0 unknown) (unknown) (no (unknown) (unknown) 3. 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 Congestive (units ( unknown) date) heart failure (No unknown) ECHO available), chronic, with a history of MN (unknown) (no (unknown) (unknown) 40 mg PO DAILY (units (unknown) date) unknown) (unknown) (no (unknown) (unknown) 5 falls resulting (units (unknown) date) in progressive leg unknown) weakness and right leg only. (unknown) (no (unknown) (unknown) 5. Right leg (units (u nknown) date) edema, with unknown) erythema, acute, present on admission and improving. (unknown) (no (unknown) (unknown) 6. Hypertension (units (unknown) date) essential,? unknown) present on admission and stable. (unknown) (no (unknown) (unknown) 600 mg PO TID (units ( unknown) date) unknown) (unknown) (no (unknown) (unknown) 7. Chronic low (units (unknown) date) back, present on unknown) admission and stable. (unknown) (no (unknown) (unknown) 77.4, MCH 24.7, (units (unknown) date) platelets 407, unknown) bicarb 33, alk-phos 148, INR stable 1.3, lactate, (unknown) (no (unknown) (unknown) 8. (units (unkno wn) date) Hyperlipidemia,? unknown) present on admission and stable. (unknown) (no (unknown) (unknown) 9. Morbid obesity (units (unknown) date) secondary to unknown) incomplete SCI paraplegic, acute on chronic, (unknown) (no (unknown) (unknown) ?-as evidence by (units (unknown) date) BMI 44.3 unknown) (unknown) (no (unknown) (unknown) Abdomen:? Soft, (units (unknown) date) obese, nontender, unknown) good bowel tones, no flank pain-indwelling (unknown) (no (unknown) (unknown) Age/Sex: 81 / M (units (unknown) date) unknown) (unknown) (no (unknown) (unknown) Assessment and (units (unknown) date) Plan unknown) (unknown) (no (unknown) (unknown) Assessment: (units (un known) date) unknown) (unknown) (no (unknown) (unknown) At the time of (units ( unknown) date) admit patient's unknown) vitals are stable temp 98.2?, BP 131/58, HR 76, R (unknown) (no (unknown) (unknown) Blood Pressure (units (unknown) date) 90/54 L unknown) (unknown) (no (unknown) (unknown) Kalen Meza, (units (unknown) date) [Physician] unknown) (unknown) (no (unknown) (unknown) COVID PCR:? (units (un known) date) Negative unknown) (unknown) (no (unknown) (unknown) Cardiac:? (units (unkn own) date) Pacemaker in the unknown) left upper chest, Regular rate and rhythm no murmurs (unknown) (no (unknown) (unknown) Chief complaint: (units (unknown) date) pressure sore unknown) (unknown) (no (unknown) (unknown) Chronic (units (unkno wn) date) anticoagulation unknown) (unknown) (no (unknown) (unknown) Chronic (units (unkno wn) date) indwelling Schaeffer unknown) catheter (unknown) (no (unknown) (unknown) Armani Cheema is (units (unknown) date) an 81-year-old unknown) male CHF, MN stent x2, pacer on chronic Eliquis, (unknown) (no (unknown) (unknown) Armani Gamboa is (units (unknown) date) an 81-year-old unknown) male admitted for an acute sacral decubitus (unknown) (no (unknown) (unknown) Code status:Full (units (unknown) date) unknown) (unknown) (no (unknown) (unknown) Cognitive/behavio (units (unknown) date) ral status at unknown) discharge: oriented (unknown) (no (unknown) (unknown) Comment: (units (unkno wn) date) Decubitus ulcer, unknown) incomplete paraplegic (unknown) (no (unknown) (unknown) Comment: Sacral (units (unknown) date) decubiti, right unknown) penile shaft wound, rt ashraf (unknown) (no (unknown) (unknown) Comment: (units (unkno wn) date) unknown) (unknown) (no (unknown) (unknown) Congestive heart (units (unknown) date) failure unknown) (unknown) (no (unknown) (unknown) Consult to (units (unk nown) date) Dietitian, Adult unknown) Routine (unknown) (no (unknown) (unknown) 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 (unknown) (no (unknown) (unknown) Consult to (units (unk nown) date) Occupational unknown) Therapy Evaluate + Treat (unknown) (no (unknown) (unknown) Consult to (units (unk nown) date) Physical Therapy unknown) Evaluate + Treat (unknown) (no (unknown) (unknown) Consult to (units (unk nown) date) Physician Routine unknown) (unknown) (no (unknown) (unknown) Consult to Wound (units (unknown) date) Care Urgent unknown) (unknown) (no (unknown) (unknown) Consulting (units (unk nown) date) Provider: unknown) Jacquelyn Bermudez (unknown) (no (unknown) (unknown) Consulting (units (unk nown) date) Provider: unknown) [facility] (unknown) (no (unknown) (unknown) Consults: (units (unkn own) date) unknown) (unknown) (no (unknown) (unknown) Coronary artery (units (unknown) date) disease unknown) (unknown) (no (unknown) (unknown) : 1940 (units (unknown) date) Acct:[id number] unknown) (unknown) (no (unknown) (unknown) Date of Service: (units (unknown) date) 09/16/22 unknown) (unknown) (no (unknown) (unknown) Date of (units (unkno wn) date) admission: unknown) (unknown) (no (unknown) (unknown) Deep Vein (units (unkn own) date) Thrombosis/Pulmona unknown) ry Embolism Present on Admission: No (unknown) (no (unknown) (unknown) Discharge (units (unkn own) date) Assessment + Plan unknown) (unknown) (no (unknown) (unknown) Discharge Data (units (unknown) date) unknown) (unknown) (no (unknown) (unknown) Discharge (units (unkn own) date) Diagnosis: unknown) (unknown) (no (unknown) (unknown) Discharge Plan (units (unknown) date) unknown) (unknown) (no (unknown) (unknown) Discharge (units (unkn own) date) Providers unknown) (unknown) (no (unknown) (unknown) Discharge Summary (units (unknown) date) unknown) (unknown) (no (unknown) (unknown) Discharge orders (units (unknown) date) + Medications unknown) (unknown) (no (unknown) (unknown) Discharge (units (unkn own) date) provider: unknown) (unknown) (no (unknown) (unknown) Eliquis 2.5 mg (units (unknown) date) tablet unknown) (unknown) (no (unknown) (unknown) Exam Narrative: (units (unknown) date) unknown) (unknown) (no (unknown) (unknown) Exam (units (unkno wn) date) unknown) (unknown) (no (unknown) (unknown) Extremities:? (units ( unknown) date) muscle atrophy, unknown) well perfused (unknown) (no (unknown) (unknown) Family History (units (unknown) date) (Reviewed 09/23/22 unknown) @ 11:22 by Izabella Serrano [facility]) (unknown) (no (unknown) (unknown) Father (units (unknown) date) Congestive heart unknown) failure (unknown) (no (unknown) (unknown) Schaeffer in place (units (unknown) date) unknown) (unknown) (no (unknown) (unknown) Follow (units (unkno wn) date) up/Referrals: unknown) (unknown) (no (unknown) (unknown) Fraction of (units (un known) date) Inspired Oxygen 28 unknown) (unknown) (no (unknown) (unknown) Functional status (units (unknown) date) at discharge: bed unknown) bound (unknown) (no (unknown) (unknown) General:?Well-nou (units (unknown) date) rished unknown) well-developed elderly male, in no acute distress. (unknown) (no (unknown) (unknown) HEENT:? 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) (unknown) (no (unknown) (unknown) History of (units (unk nown) date) Present Illness unknown) (unknown) (no (unknown) (unknown) History of (units (unk nown) date) coronary artery unknown) stent placement (unknown) (no (unknown) (unknown) History of (units (unk nown) date) laminectomy unknown) (unknown) (no (unknown) (unknown) 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 (unknown) (no (unknown) (unknown) Hospital Course (units (unknown) date) unknown) (unknown) (no (unknown) (unknown) Hospital Course: (units (unknown) date) unknown) (unknown) (no (unknown) (unknown) Hyperlipidemia (units (unknown) date) unknown) (unknown) (no (unknown) (unknown) Hypertension (units (u nknown) date) unknown) (unknown) (no (unknown) (unknown) Intermittent (units (u nknown) date) self-catheterizati unknown) on of bladder (unknown) (no (unknown) (unknown) [facility] (units (unknown) date) [address] [place] [address] Street unknown) [place] [address] (unknown) (no (unknown) (unknown) Vanessa Krishnamurthy DO (units (unknown) date) unknown) (unknown) (no (unknown) (unknown) Labs (units (unkno wn) date) unknown) (unknown) (no (unknown) (unknown) Medical History (units (unknown) date) (Reviewed 09/23/22 unknown) @ 11:22 by Izabella Serrano [facility]) (unknown) (no (unknown) (unknown) Mother (units (unknown) date) Cancer unknown) (unknown) (no (unknown) (unknown) Narrative (units (unkn own) date) unknown) (unknown) (no (unknown) (unknown) Narrative: (units (unk nown) date) unknown) (unknown) (no (unknown) (unknown) Izabella Serrano, (units (unknown) date) DOCUMENT COORDINATOR-BC unknown) (unknown) (no (unknown) (unknown) Neck:? No JVD, (units (unknown) date) supple unknown) (unknown) (no (unknown) (unknown) Neurologic:? (units (u nknown) date) Minimal sensation unknown) from lower abdomen down.? Significant weakness (unknown) (no (unknown) (unknown) No Action (units (unkn own) date) unknown) (unknown) (no (unknown) (unknown) Objective (units (unkn own) date) unknown) (unknown) (no (unknown) (unknown) Other facility: (units (unknown) date) [facility] unknown) (unknown) (no (unknown) (unknown) Overall status at (units (unknown) date) discharge: other unknown) (Patient requires long-term wound care (unknown) (no (unknown) (unknown) Oxygen Delivery (units (unknown) date) Method Nasal unknown) Cannula (unknown) (no (unknown) (unknown) Oxygen Flow Rate (units (unknown) date) 2 unknown) (unknown) (no (unknown) (unknown) PFSH (units (unkno wn) date) unknown) (unknown) (no (unknown) (unknown) Pacemaker (units (unkn own) date) unknown) (unknown) (no (unknown) (unknown) 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) (unknown) (no (unknown) (unknown) Patient (units (unkno wn) date) Disposition: SNF unknown) (unknown) (no (unknown) (unknown) Patient at he had (units (unknown) date) been using walker unknown) or crutches and was able to perform (unknown) (no (unknown) (unknown) Patient was (units (un known) date) placed on a wound unknown) VAC, which will be removed, wet-to-dry dressing (unknown) (no (unknown) (unknown) Patient: (units (unkno wn) date) Arm[employer] Cheema unknown) MR#: [id number] (unknown) (no (unknown) (unknown) Physician (units (unkn own) date) Instructions: unknown) Evaluate and Treat (unknown) (no (unknown) (unknown) Physician (units (unkn own) date) Instructions: unknown) Evaluate and treat (unknown) (no (unknown) (unknown) Plan of (units (unkno wn) date) Treatment: unknown) (unknown) (no (unknown) (unknown) Prescriptions: (units (unknown) date) unknown) (unknown) (no (unknown) (unknown) Primary Care (units (u nknown) date) Provider: unknown) Vanessa Krishnamurthy (unknown) (no (unknown) (unknown) Primary care (units (u nknown) date) physician: unknown) (unknown) (no (unknown) (unknown) Provider (units (unkno wn) date) Discharge Comment: unknown) follow up with wound care clinic. No need for gen (unknown) (no (unknown) (unknown) Provider (units (unkno wn) date) unknown) (unknown) (no (unknown) (unknown) Provider: (units (unkn own) date) Izabella Serrano unknown) DOCUMENT COORDINATOR-BC (unknown) (no (unknown) (unknown) Psych:? (units (unkno wn) date) Cooperative, unknown) appropriate insight and affect (unknown) (no (unknown) (unknown) Pulse Oximetry 93 (units (unknown) date) unknown) (unknown) (no (unknown) (unknown) Pulse Rate 66 (units ( unknown) date) unknown) (unknown) (no (unknown) (unknown) Quality (units (unkno wn) date) unknown) (unknown) (no (unknown) (unknown) Reason For Exam: (units (unknown) date) Decubitus ulcer unknown) BMI 44.3 (unknown) (no (unknown) (unknown) Reason for (units (unk nown) date) consultation: unknown) Sacral decubitus ulcer (unknown) (no (unknown) (unknown) Respiratory Rate (units (unknown) date) 20 unknown) (unknown) (no (unknown) (unknown) Respiratory:? (units ( unknown) date) Lungs all bragg unknown) clear to auscultation. (unknown) (no (unknown) (unknown) Result Diagrams: (units (unknown) date) unknown) (unknown) (no (unknown) (unknown) Vanessa Krishnamurthy DO (units (unknown) date) [Primary Care unknown) Provider] (unknown) (no (unknown) (unknown) Signed By: (units (unk nown) date) unknown) (unknown) (no (unknown) (unknown) Skin:? Large (units (u nknown) date) sacral decubitus unknown) ulcer with wound vac in place, right-sided penile (unknown) (no (unknown) (unknown) Smoking Status: (units (unknown) date) Never smoker unknown) (unknown) (no (unknown) (unknown) Social History (units (unknown) date) (Reviewed 09/23/22 unknown) @ 11:22 by PIETRO MontemayorPRICCARDO) (unknown) (no (unknown) (unknown) 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, incomplete unknown) (unknown) (no (unknown) (unknown) Stand Alone (units (un known) date) Forms: Patient unknown) Portal/API (unknown) (no (unknown) (unknown) Status at (units (unkn own) date) Discharge unknown) (unknown) (no (unknown) (unknown) Summary (units (unkno wn) date) unknown) (unknown) (no (unknown) (unknown) Surgical History (units (unknown) date) (Reviewed 09/23/22 unknown) @ 11:22 by Izabella Serrano [facility]) (unknown) (no (unknown) (unknown) Surrogate (units (unkn own) date) decision maker:? unknown) Bhavna who is spouse (unknown) (no (unknown) (unknown) Temperature 97.3 (units (unknown) date) F L unknown) (unknown) (no (unknown) (unknown) Time Spent with (units (unknown) date) Patient unknown) (unknown) (no (unknown) (unknown) Time spent: Less (units (unknown) date) than 30 minutes unknown) (unknown) (no (unknown) (unknown) Transfer to (units (un known) date) [facility] skilled unknown) [facility] for continued chronic (unknown) (no (unknown) (unknown) VTE (units (unkno wn) date) unknown) (unknown) (no (unknown) (unknown) Visit (units (unkno wn) date) Report/Discharge unknown) Packet (unknown) (no (unknown) (unknown) Vital Signs (units (un known) date) unknown) (unknown) (no (unknown) (unknown) [facility] due to (units (unknown) date) lack of placement unknown) since September 03, 2022 Diagnosed with sacral (unknown) (no (unknown) (unknown) [Embedded Image (units (unknown) date) Not Available] unknown) (unknown) (no (unknown) (unknown) active. (units (unkno wn) date) unknown) (unknown) (no (unknown) (unknown) admitted but (units (u nknown) date) remained in the ED unknown) for approximately 10 days where he was boarding (unknown) (no (unknown) (unknown) albuterol sulfate (units (unknown) date) [ProAir HFA] 90 unknown) mcg/actuation HFA aerosol inhaler (unknown) (no (unknown) (unknown) and a group B (units ( unknown) date) strep. unknown) (unknown) (no (unknown) (unknown) and unable to bear (units (unknown) date) weight with lower unknown) extremities, onset 3-4 months ago following (unknown) (no (unknown) (unknown) appeared to be in (units (unknown) date) superficial layers unknown) only. Placed on augmentin based on wound (unknown) (no (unknown) (unknown) atorvastatin 40 (units (unknown) date) mg tablet unknown) (unknown) (no (unknown) (unknown) bilateral (units (unkn own) date) buttocks, right unknown) penile shaft lesion wound likely associated with (unknown) (no (unknown) (unknown) carvedilol (units (unk nown) date) [Coreg] 25 MG unknown) tablet (unknown) (no (unknown) (unknown) catheterization (units (unknown) date) secondary to unknown) spinal cord injury, acute on chronic, right-sided (unknown) (no (unknown) (unknown) chronic for (units (un known) date) patient's baseline unknown) s/p knee surgery. (unknown) (no (unknown) (unknown) chronic (units (unkno wn) date) indwelling Schaeffer unknown) catheter use at bedtime, and a left lateral malleolus (unknown) (no (unknown) (unknown) complaints and (units (unknown) date) has no specific unknown) pain with minimal sensation to the area of the (unknown) (no (unknown) (unknown) continuing (units (unkn own) date) worsening unknown) weakness-the patient then went to would be Hospital was not (unknown) (no (unknown) (unknown) cough, chills, (units (unknown) date) abdominal pain, unknown) vomiting, body aches, chills, diarrhea, blood in (unknown) (no (unknown) (unknown) culture results (units (unknown) date) with proteus and a unknown) group B strep and coverage of UTI, continued. (unknown) (no (unknown) (unknown) decubitus ulcer, (units (unknown) date) UTI. Schaeffer was unknown) placed on admit today in the ED. Dr. Bermudez (unknown) (no (unknown) (unknown) deterioration,, (units (unknown) date) frequent falls), unknown) acute on chronic, present on admission and (unknown) (no (unknown) (unknown) diet, patient's (units (unknown) date) wound VAC will be unknown) removed and changed to a wet-to-dry dressing (unknown) (no (unknown) (unknown) dietary, (units (unkno wn) date) lifestyle, unknown) exercise, and weight changes. (unknown) (no (unknown) (unknown) discharged to (units ( unknown) date) [facility] and unknown) resided in [facility] until he ran out of coverage (unknown) (no (unknown) (unknown) erythema resolved (units (unknown) date) unknown) (unknown) (no (unknown) (unknown) follow-up (units (unkn own) date) appointment unknown) . 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 Patient admitted to the [facility] following 5 (unknown) (no (unknown) (unknown) independent ADLs (units (unknown) date) until unknown) approximately 3-4 months ago when he started to have (unknown) (no (unknown) (unknown) infection), (units (un known) date) intermittent unknown) catheterization during day + Schaeffer nightly patient was (unknown) (no (unknown) (unknown) lesion- healing, (units (unknown) date) right testicle unknown) (tennis ball size) is significantly larger (non (unknown) (no (unknown) (unknown) lidocaine 5 % (units ( unknown) date) adhesive unknown) patch,medicated (unknown) (no (unknown) (unknown) lipase, (units (unkno wn) date) procalcitonin unknown) COVID are all negative. Patient's urinalysis positive for (unknown) (no (unknown) (unknown) management, as (units (unknown) date) well as physical unknown) therapy due to decreased mobility and falls (unknown) (no (unknown) (unknown) nitrates and (units (un known) date) bacteria culture unknown) pending, sofa score 0, EKG sinus rhythm rate of 73 (unknown) (no (unknown) (unknown) no bruits (units (unkn own) date) unknown) (unknown) (no (unknown) (unknown) nonspecific ST (units (unknown) date) and T-wave unknown) changes. CT of abdomen pelvis demonstrate posterior (unknown) (no (unknown) (unknown) noted edema mild (units (unknown) date) non-pitting +1, no unknown) erythema, slighthly warmer to touch, than (unknown) (no (unknown) (unknown) oxygen at home. (units (unknown) date) WBC 12.3, unknown) neutrophils 7400, eos 500, baso 200, H+H 12.9/40, MCV (unknown) (no (unknown) (unknown) pacemaker on (units (u nknown) date) chronic unknown) anticoagulation, present on admission (unknown) (no (unknown) (unknown) pain, shortness (units (unknown) date) in breath. unknown) (unknown) (no (unknown) (unknown) patient's obesity (units (unknown) date) increases the unknown) difficulty and complexity of medical and/or (unknown) (no (unknown) (unknown) penile ulceration (units (unknown) date) stage II, acute,? unknown) present on admission and active. (unknown) (no (unknown) (unknown) present on (units (unk nown) date) admission and unknown) active. (unknown) (no (unknown) (unknown) present on (units (unk nown) date) admission unknown) (unknown) (no (unknown) (unknown) region of the (units ( unknown) date) coccyx and lower unknown) sacral area. Patient admitted for sacral (unknown) (no (unknown) (unknown) reports that he (units (unknown) date) was treated for unknown) right leg edema started Lasix and then (unknown) (no (unknown) (unknown) right pedal (units (un known) date) pulses intact, unknown) sensation intact, right lower leg no edema present, (unknown) (no (unknown) (unknown) sacral ulceration (units (unknown) date) with cellulitis unknown) changes and inflammation extending to the (unknown) (no (unknown) (unknown) sacrum and unable (units (unknown) date) to walk due to unknown) nerve injury.? He does not report fevers, (unknown) (no (unknown) (unknown) secondary to (units (u nknown) date) deteriorating unknown) paraplegic.) (unknown) (no (unknown) (unknown) serious falls, (units ( unknown) date) resulting in unknown) worsening weakness, worsening right leg pain, losing (unknown) (no (unknown) (unknown) she immediately (units (unknown) date) called 911 for unknown) transport to [facility]. He has no specific (unknown) (no (unknown) (unknown) significant (units (un known) date) multiple falls. unknown) (unknown) (no (unknown) (unknown) skin is cool to (units (unknown) date) touch pale, pulses unknown) intact and sensation. (unknown) (no (unknown) (unknown) strep. (units (unkno wn) date) unknown) (unknown) (no (unknown) (unknown) such as morbidity (units (unknown) date) and mortality as unknown) well as impaired wound healing.? (unknown) (no (unknown) (unknown) surg follow up (units (unknown) date) unknown) (unknown) (no (unknown) (unknown) surgical (units (unkno wn) date) interventions, unknown) management and increases the chances of poor outcome (unknown) (no (unknown) (unknown) tender no wound (units (unknown) date) present, than left unknown) (robert),? Left? lower leg nontender, (unknown) (no (unknown) (unknown) the ability to (units (unknown) date) perform ADLs and unknown) become completely wheelchair-bound. Patient (unknown) (no (unknown) (unknown) tissue appeared (units (unknown) date) to be in unknown) superficial layers only. (unknown) (no (unknown) (unknown) to be applied for (units (unknown) date) transport to unknown) [facility] in [place] (unknown) (no (unknown) (unknown) to consult-plan (units (unknown) date) to take to the OR unknown) for debridement (unknown) (no (unknown) (unknown) to obesity as it (units (unknown) date) relates to chronic unknown) illnesses:, and acute illness.? The (unknown) (no (unknown) (unknown) transported (units (un known) date) following home unknown) nurse visit evaluation of a sacral decubitus ulcer. (unknown) (no (unknown) (unknown) ulcer, and UTI (units (unknown) date) -Dr. Bermudez took unknown) to the OR for debridement, Necrotic tissue (unknown) (no (unknown) (unknown) unchanged from (units (unknown) date) admit- december unknown) continue based edema/fluid overload . (unknown) (no (unknown) (unknown) until new wound (units (unknown) date) VAC be placed at unknown) [facility] (which has already been arranged) . (unknown) (no (unknown) (unknown) urine or stool, (units (unknown) date) does have dysuria, unknown) notes chronic low back pain, denies chest (unknown) (no (unknown) (unknown) wound 11.5 x 8 x (units (unknown) date) 0.1 unstageable unknown) pressure injury covering the sacral region (unknown) (no (unknown) (unknown) wound care/wound (units (unknown) date) VAC unknown) (unknown) (no (unknown) (unknown) wound stage 2, (units (unknown) date) patient was sent unknown) home on Augmentin discharged scheduled Result panel 88 (unknown) (no (unknown) (unknown) (no value) (units (unk nown) date) unknown) (unknown) (no (unknown) (unknown) (past 8 hours): (units (unknown) date) unknown) (unknown) (no (unknown) (unknown) (reported (units (unkn own) date) secondary to unknown) laminectomy in 2002 that resulted in spinal Staph (unknown) (no (unknown) (unknown) - Continue PT, OT (units (unknown) date) unknown) (unknown) (no (unknown) (unknown) -Antibiotics as (units (unknown) date) noted above. unknown) (unknown) (no (unknown) (unknown) -Continue (units (unkn own) date) augmentin based on unknown) wound culture results with proteus and a group B (unknown) (no (unknown) (unknown) -Dr. Bermudez ,? (units (unknown) date) OR for debridement unknown) performed couple of days ago. Necrotic (unknown) (no (unknown) (unknown) -Dr. Bermudez S/P (units (unknown) date) I+D unknown) (unknown) (no (unknown) (unknown) -EKG sinus rhythm (units (unknown) date) rate 73 with unknown) nonspecific ST and T-wave changes (unknown) (no (unknown) (unknown) -Schaeffer in (units (unkn own) date) place?(chronic) unknown) (unknown) (no (unknown) (unknown) -No DVT on (units (unk nown) date) ultrasound. unknown) (unknown) (no (unknown) (unknown) -PT/OT evaluation (units (unknown) date) completed unknown) (unknown) (no (unknown) (unknown) -antibiotics (units (u nknown) date) narrowed to unknown) augmentin based on wound culture results with proteus (unknown) (no (unknown) (unknown) -continue Coreg (units (unknown) date) and lisinopril. unknown) (unknown) (no (unknown) (unknown) -continue (units (unkn own) date) lidocaine patches, unknown) gabapentin (unknown) (no (unknown) (unknown) -continue (units (unkn own) date) simvastatin unknown) changed to atorvastatin for hospital formulary. (unknown) (no (unknown) (unknown) -dietary consult (units (unknown) date) ordered regarding unknown) nutritional education and information for (unknown) (no (unknown) (unknown) -discharge (units (unk nown) date) patient is being unknown) transferred to [facility] on a regular (unknown) (no (unknown) (unknown) -erythema (units (unkn own) date) resolved no sign unknown) lower extremity wounds, edema nonpitting +1 appears (unknown) (no (unknown) (unknown) -schaeffer (he uses (units (unknown) date) self cath and unknown) nocturnal schaeffer at home) (unknown) (no (unknown) (unknown) -held Lasix due (units (unknown) date) to chronically low unknown) BP, mild right lower leg edema noted (unknown) (no (unknown) (unknown) -no previous (units (u nknown) date) documentation in unknown) our system (unknown) (no (unknown) (unknown) -pain (units (unkno wn) date) management,? 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 (units (unknown) date) unknown) (unknown) (no (unknown) (unknown) -the patient is (units (unknown) date) at much higher unknown) risk for medical and surgical complications due (unknown) (no (unknown) (unknown) -troponins (units (unk nown) date) negative. unknown) (unknown) (no (unknown) (unknown) 09/16/22 17:37 (units (unknown) date) unknown) (unknown) (no (unknown) (unknown) 09/16/22 22:48 (units (unknown) date) unknown) (unknown) (no (unknown) (unknown) 09/17/22 04:00 (units (unknown) date) unknown) (unknown) (no (unknown) (unknown) 09/17/22 04:01 (units (unknown) date) unknown) (unknown) (no (unknown) (unknown) 09/17/22 04:11 (units (unknown) date) unknown) (unknown) (no (unknown) (unknown) 09/19/22 05:06 (units (unknown) date) unknown) (unknown) (no (unknown) (unknown) 09/23/22 (units (unkno wn) date) unknown) (unknown) (no (unknown) (unknown) [id number] (units (unkno wn) date) unknown) (unknown) (no (unknown) (unknown) 04:00 (units (unkno wn) date) unknown) (unknown) (no (unknown) (unknown) 1 ea topical (units (u nknown) date) DAILY Qty: 30 0RF unknown) (unknown) (no (unknown) (unknown) 1 patch (units (unkno wn) date) transdermal Q12H unknown) PRN (Reason: Pain, Mild) (unknown) (no (unknown) (unknown) 1 puff INHALATION (units (unknown) date) PRN PRN (Reason: unknown) Wheezing) (unknown) (no (unknown) (unknown) 1 tab PO BID Qty: (units (unknown) date) 8 0RF unknown) (unknown) (no (unknown) (unknown) 1. Sacral (units (unkn own) date) decubitus ulcer unknown) acute, in an incomplete SCI paraplegic, chronic, (unknown) (no (unknown) (unknown) 100 mg PO BID (units ( unknown) date) Qty: 60 0RF unknown) (unknown) (no (unknown) (unknown) 18, O2 saturation (units (unknown) date) 95% on room unknown) air-the patient states that he does not require (unknown) (no (unknown) (unknown) 2. UTI, (units (unkno wn) date) associated with unknown) chronic indwelling catheter. Intermittent self (unknown) (no (unknown) (unknown) 2.5 mg PO BID (units ( unknown) date) unknown) (unknown) (no (unknown) (unknown) 25 mg PO BID Qty: (units (unknown) date) 0 unknown) (unknown) (no (unknown) (unknown) 3. 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 Congestive (units ( unknown) date) heart failure (No unknown) ECHO available), chronic, with a history of MN (unknown) (no (unknown) (unknown) 40 mg PO DAILY (units (unknown) date) unknown) (unknown) (no (unknown) (unknown) 5 falls resulting (units (unknown) date) in progressive leg unknown) weakness and right leg only. (unknown) (no (unknown) (unknown) 5. Right leg (units (u nknown) date) edema, with unknown) erythema, acute, present on admission and improving. (unknown) (no (unknown) (unknown) 6. Hypertension (units (unknown) date) essential,? unknown) present on admission and stable. (unknown) (no (unknown) (unknown) 600 mg PO TID (units ( unknown) date) unknown) (unknown) (no (unknown) (unknown) 7. Chronic low (units (unknown) date) back, present on unknown) admission and stable. (unknown) (no (unknown) (unknown) 77.4, MCH 24.7, (units (unknown) date) platelets 407, unknown) bicarb 33, alk-phos 148, INR stable 1.3, lactate, (unknown) (no (unknown) (unknown) 8. (units (unkno wn) date) Hyperlipidemia,? unknown) present on admission and stable. (unknown) (no (unknown) (unknown) 9. Morbid obesity (units (unknown) date) secondary to unknown) incomplete SCI paraplegic, acute on chronic, (unknown) (no (unknown) (unknown) ?-as evidence by (units (unknown) date) BMI 44.3 unknown) (unknown) (no (unknown) (unknown) Abdomen:? Soft, (units (unknown) date) obese, nontender, unknown) good bowel tones, no flank pain-indwelling (unknown) (no (unknown) (unknown) Age/Sex: 81 / M (units (unknown) date) unknown) (unknown) (no (unknown) (unknown) Assessment and (units (unknown) date) Plan unknown) (unknown) (no (unknown) (unknown) Assessment: (units (un known) date) unknown) (unknown) (no (unknown) (unknown) At the time of (units ( unknown) date) admit patient's unknown) vitals are stable temp 98.2?, BP 131/58, HR 76, R (unknown) (no (unknown) (unknown) Blood Pressure (units (unknown) date) 90/54 L unknown) (unknown) (no (unknown) (unknown) Kalen Meza, (units (unknown) date) MD [Physician] unknown) (unknown) (no (unknown) (unknown) COVID PCR:? (units (un known) date) Negative unknown) (unknown) (no (unknown) (unknown) Cardiac:? (units (unkn own) date) Pacemaker in the unknown) left upper chest, Regular rate and rhythm no murmurs (unknown) (no (unknown) (unknown) Chief complaint: (units (unknown) date) pressure sore unknown) (unknown) (no (unknown) (unknown) Chronic (units (unkno wn) date) anticoagulation unknown) (unknown) (no (unknown) (unknown) Chronic (units (unkno wn) date) indwelling Schaeffer unknown) catheter (unknown) (no (unknown) (unknown) Armani Cheema is (units (unknown) date) an 81-year-old unknown) male CHF, [place] stent x2, pacer on chronic Eliquis, (unknown) (no (unknown) (unknown) Armani Gamboa is (units (unknown) date) an 81-year-old unknown) male admitted for an acute sacral decubitus (unknown) (no (unknown) (unknown) Code status:Full (units (unknown) date) unknown) (unknown) (no (unknown) (unknown) Cognitive/behavio (units (unknown) date) ral status at unknown) discharge: oriented (unknown) (no (unknown) (unknown) Comment: (units (unkno wn) date) Decubitus ulcer, unknown) incomplete paraplegic (unknown) (no (unknown) (unknown) Comment: Sacral (units (unknown) date) decubiti, right unknown) penile shaft wound, rt ashraf (unknown) (no (unknown) (unknown) Comment: (units (unkno wn) date) unknown) (unknown) (no (unknown) (unknown) Congestive heart (units (unknown) date) failure unknown) (unknown) (no (unknown) (unknown) Consult to (units (unk nown) date) Dietitian, Adult unknown) Routine (unknown) (no (unknown) (unknown) 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 (unknown) (no (unknown) (unknown) Consult to (units (unk nown) date) Occupational unknown) Therapy Evaluate + Treat (unknown) (no (unknown) (unknown) Consult to (units (unk nown) date) Physical Therapy unknown) Evaluate + Treat (unknown) (no (unknown) (unknown) Consult to (units (unk nown) date) Physician Routine unknown) (unknown) (no (unknown) (unknown) Consult to Wound (units (unknown) date) Care Urgent unknown) (unknown) (no (unknown) (unknown) Consulting (units (unk nown) date) Provider: unknown) Jacquelyn Bermudez (unknown) (no (unknown) (unknown) Consulting (units (unk nown) date) Provider: unknown) [facility] (unknown) (no (unknown) (unknown) Consults: (units (unkn own) date) unknown) (unknown) (no (unknown) (unknown) Continued (units (unkn own) date) unknown) (unknown) (no (unknown) (unknown) Coronary artery (units (unknown) date) disease unknown) (unknown) (no (unknown) (unknown) : 1940 (units (unknown) date) Acct:[id number] unknown) (unknown) (no (unknown) (unknown) Date of Service: (units (unknown) date) 09/16/22 unknown) (unknown) (no (unknown) (unknown) Date of (units (unkno wn) date) admission: unknown) (unknown) (no (unknown) (unknown) Deep Vein (units (unkn own) date) Thrombosis/Pulmona unknown) ry Embolism Present on Admission: No (unknown) (no (unknown) (unknown) Discharge (units (unkn own) date) Assessment + Plan unknown) (unknown) (no (unknown) (unknown) Discharge Data (units (unknown) date) unknown) (unknown) (no (unknown) (unknown) Discharge (units (unkn own) date) Diagnosis: unknown) (unknown) (no (unknown) (unknown) Discharge Plan (units (unknown) date) unknown) (unknown) (no (unknown) (unknown) Discharge (units (unkn own) date) Providers unknown) (unknown) (no (unknown) (unknown) Discharge Summary (units (unknown) date) unknown) (unknown) (no (unknown) (unknown) Discharge orders (units (unknown) date) + Medications unknown) (unknown) (no (unknown) (unknown) Discharge (units (unkn own) date) provider: unknown) (unknown) (no (unknown) (unknown) Discontinued (units (u nknown) date) unknown) (unknown) (no (unknown) (unknown) Eliquis 2.5 mg (units (unknown) date) tablet unknown) (unknown) (no (unknown) (unknown) Exam Narrative: (units (unknown) date) unknown) (unknown) (no (unknown) (unknown) Exam (units (unkno wn) date) unknown) (unknown) (no (unknown) (unknown) Extremities:? (units ( unknown) date) muscle atrophy, unknown) well perfused (unknown) (no (unknown) (unknown) Family History (units (unknown) date) (Reviewed 09/23/22 unknown) @ 11:22 by Izabella Serrano [facility]) (unknown) (no (unknown) (unknown) Father (units (unknown) date) Congestive heart unknown) failure (unknown) (no (unknown) (unknown) Schaeffer in place (units (unknown) date) unknown) (unknown) (no (unknown) (unknown) Follow (units (unkno wn) date) up/Referrals: unknown) (unknown) (no (unknown) (unknown) Fraction of (units (un known) date) Inspired Oxygen 28 unknown) (unknown) (no (unknown) (unknown) Functional status (units (unknown) date) at discharge: bed unknown) bound (unknown) (no (unknown) (unknown) General:?Well-nou (units (unknown) date) rished unknown) well-developed elderly male, in no acute distress. (unknown) (no (unknown) (unknown) HEENT:? 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) (unknown) (no (unknown) (unknown) History of (units (unk nown) date) Present Illness unknown) (unknown) (no (unknown) (unknown) History of (units (unk nown) date) coronary artery unknown) stent placement (unknown) (no (unknown) (unknown) History of (units (unk nown) date) laminectomy unknown) (unknown) (no (unknown) (unknown) 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 (unknown) (no (unknown) (unknown) Hospital Course (units (unknown) date) unknown) (unknown) (no (unknown) (unknown) Hospital Course: (units (unknown) date) unknown) (unknown) (no (unknown) (unknown) Hyperlipidemia (units (unknown) date) unknown) (unknown) (no (unknown) (unknown) Hypertension (units (u nknown) date) unknown) (unknown) (no (unknown) (unknown) Intermittent (units (u nknown) date) self-catheterizati unknown) on of bladder (unknown) (no (unknown) (unknown) [facility] (units (unknown) date) [address] [place] [address] unknown) [place] [address] (unknown) (no (unknown) (unknown) Vanessa Krishnamurthy DO (units (unknown) date) unknown) (unknown) (no (unknown) (unknown) Labs (units (unkno wn) date) unknown) (unknown) (no (unknown) (unknown) Medical History (units (unknown) date) (Reviewed 09/23/22 unknown) @ 11:22 by [facility]err[facility]) (unknown) (no (unknown) (unknown) Mother (units (unknown) date) Cancer unknown) (unknown) (no (unknown) (unknown) Narrative (units (unkn own) date) unknown) (unknown) (no (unknown) (unknown) Narrative: (units (unk nown) date) unknown) (unknown) (no (unknown) (unknown) Izabella Serrano, (units (unknown) date) INA unknown) (unknown) (no (unknown) (unknown) Neck:? No JVD, (units (unknown) date) supple unknown) (unknown) (no (unknown) (unknown) Neurologic:? (units (u nknown) date) Minimal sensation unknown) from lower abdomen down.? Significant weakness (unknown) (no (unknown) (unknown) New (units (unkno wn) date) unknown) (unknown) (no (unknown) (unknown) Objective (units (unkn own) date) unknown) (unknown) (no (unknown) (unknown) Other facility: (units (unknown) date) [facility] unknown) (unknown) (no (unknown) (unknown) Overall status at (units (unknown) date) discharge: other unknown) (Patient requires long-term wound care (unknown) (no (unknown) (unknown) Oxygen Delivery (units (unknown) date) Method Nasal unknown) Cannula (unknown) (no (unknown) (unknown) Oxygen Flow Rate (units (unknown) date) 2 unknown) (unknown) (no (unknown) (unknown) PFSH (units (unkno wn) date) unknown) (unknown) (no (unknown) (unknown) Pacemaker (units (unkn own) date) unknown) (unknown) (no (unknown) (unknown) 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) (unknown) (no (unknown) (unknown) Patient (units (unkno wn) date) Disposition: SNF unknown) (unknown) (no (unknown) (unknown) Patient at he had (units (unknown) date) been using walker unknown) or crutches and was able to perform (unknown) (no (unknown) (unknown) Patient was (units (un known) date) placed on a wound unknown) VAC, which will be removed, wet-to-dry dressing (unknown) (no (unknown) (unknown) Patient: (units (unkno wn) date) [employer] unknown) MR#: [id number] (unknown) (no (unknown) (unknown) Physician (units (unkn own) date) Instructions: unknown) Evaluate and Treat (unknown) (no (unknown) (unknown) Physician (units (unkn own) date) Instructions: unknown) Evaluate and treat (unknown) (no (unknown) (unknown) Plan of (units (unkno wn) date) Treatment: unknown) (unknown) (no (unknown) (unknown) Prescriptions: (units (unknown) date) unknown) (unknown) (no (unknown) (unknown) Primary Care (units (u nknown) date) Provider: unknown) Vanessa Krishnamurthy (unknown) (no (unknown) (unknown) Primary care (units (u nknown) date) physician: unknown) (unknown) (no (unknown) (unknown) Provider (units (unkno wn) date) Discharge Comment: unknown) follow up with wound care clinic. No need for gen (unknown) (no (unknown) (unknown) Provider (units (unkno wn) date) unknown) (unknown) (no (unknown) (unknown) Provider: (units (unkn own) date) Izabella Serrano unknown) DOCUMENT COORDINATOR-BC (unknown) (no (unknown) (unknown) Psych:? (units (unkno wn) date) Cooperative, unknown) appropriate insight and affect (unknown) (no (unknown) (unknown) Pulse Oximetry 93 (units (unknown) date) unknown) (unknown) (no (unknown) (unknown) Pulse Rate 66 (units ( unknown) date) unknown) (unknown) (no (unknown) (unknown) Quality (units (unkno wn) date) unknown) (unknown) (no (unknown) (unknown) Reason For Exam: (units (unknown) date) Decubitus ulcer unknown) BMI 44.3 (unknown) (no (unknown) (unknown) Reason for (units (unk nown) date) consultation: unknown) Sacral decubitus ulcer (unknown) (no (unknown) (unknown) Respiratory Rate (units (unknown) date) 20 unknown) (unknown) (no (unknown) (unknown) Respiratory:? (units ( unknown) date) Lungs all bragg unknown) clear to auscultation. (unknown) (no (unknown) (unknown) Result Diagrams: (units (unknown) date) unknown) (unknown) (no (unknown) (unknown) Vanessa Krishnamurthy, DO (units (unknown) date) [Primary Care unknown) Provider] (unknown) (no (unknown) (unknown) Signed By: (units (unk nown) date) unknown) (unknown) (no (unknown) (unknown) Skin:? Large (units (u nknown) date) sacral decubitus unknown) ulcer with wound vac in place, right-sided penile (unknown) (no (unknown) (unknown) Smoking Status: (units (unknown) date) Never smoker unknown) (unknown) (no (unknown) (unknown) Social History (units (unknown) date) (Reviewed 09/23/22 unknown) @ 11:22 by INA Montemayor) (unknown) (no (unknown) (unknown) 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, incomplete unknown) (unknown) (no (unknown) (unknown) Stand Alone (units (un known) date) Forms: Patient unknown) Portal/API (unknown) (no (unknown) (unknown) Status at (units (unkn own) date) Discharge unknown) (unknown) (no (unknown) (unknown) Summary (units (unkno wn) date) unknown) (unknown) (no (unknown) (unknown) Surgical History (units (unknown) date) (Reviewed 09/23/22 unknown) @ 11:22 by INA Montemayor) (unknown) (no (unknown) (unknown) Surrogate (units (unkn own) date) decision maker:? unknown) Bhavna who is spouse (unknown) (no (unknown) (unknown) Temperature 97.3 (units (unknown) date) F L unknown) (unknown) (no (unknown) (unknown) Time Spent with (units (unknown) date) Patient unknown) (unknown) (no (unknown) (unknown) Time spent: Less (units (unknown) date) than 30 minutes unknown) (unknown) (no (unknown) (unknown) Transfer to (units (un known) date) [facility] skilled unknown) [facility] for continued chronic (unknown) (no (unknown) (unknown) VTE (units (unkno wn) date) unknown) (unknown) (no (unknown) (unknown) Visit (units (unkno wn) date) Report/Discharge unknown) Packet (unknown) (no (unknown) (unknown) Vital Signs (units (un known) date) unknown) (unknown) (no (unknown) (unknown) [facility] due to (units (unknown) date) lack of placement unknown) since September 03, 2022 Diagnosed with sacral (unknown) (no (unknown) (unknown) [Embedded Image (units (unknown) date) Not Available] unknown) (unknown) (no (unknown) (unknown) active. (units (unkno wn) date) unknown) (unknown) (no (unknown) (unknown) admitted but (units (u nknown) date) remained in the ED unknown) for approximately 10 days where he was boarding (unknown) (no (unknown) (unknown) albuterol sulfate (units (unknown) date) [ProAir HFA] 90 unknown) mcg/actuation HFA aerosol inhaler (unknown) (no (unknown) (unknown) amoxicillin-pot (units (unknown) date) clavulanate unknown) 875-125 mg Tablet (unknown) (no (unknown) (unknown) and a group B (units ( unknown) date) strep. unknown) (unknown) (no (unknown) (unknown) and unable to bear (units (unknown) date) weight with lower unknown) extremities, onset 3-4 months ago following (unknown) (no (unknown) (unknown) appeared to be in (units (unknown) date) superficial layers unknown) only. Placed on augmentin based on wound (unknown) (no (unknown) (unknown) atorvastatin 40 (units (unknown) date) mg tablet unknown) (unknown) (no (unknown) (unknown) bilateral (units (unkn own) date) buttocks, right unknown) penile shaft lesion wound likely associated with (unknown) (no (unknown) (unknown) carvedilol (units (unk nown) date) [Coreg] 25 MG unknown) tablet (unknown) (no (unknown) (unknown) catheterization (units (unknown) date) secondary to unknown) spinal cord injury, acute on chronic, right-sided (unknown) (no (unknown) (unknown) chronic for (units (un known) date) patient's baseline unknown) s/p knee surgery. (unknown) (no (unknown) (unknown) chronic (units (unkno wn) date) indwelling Schaeffer unknown) catheter use at bedtime, and a left lateral malleolus (unknown) (no (unknown) (unknown) complaints and (units (unknown) date) has no specific unknown) pain with minimal sensation to the area of the (unknown) (no (unknown) (unknown) continuing (units (unkn own) date) worsening unknown) weakness-the patient then went to would be Hospital was not (unknown) (no (unknown) (unknown) cough, chills, (units (unknown) date) abdominal pain, unknown) vomiting, body aches, chills, diarrhea, blood in (unknown) (no (unknown) (unknown) culture results (units (unknown) date) with proteus and a unknown) group B strep and coverage of UTI, continued. (unknown) (no (unknown) (unknown) decubitus ulcer, (units (unknown) date) UTI. Schaeffer was unknown) placed on admit today in the ED. Dr. Bermudez (unknown) (no (unknown) (unknown) deterioration,, (units (unknown) date) frequent falls), unknown) acute on chronic, present on admission and (unknown) (no (unknown) (unknown) diet, patient's (units (unknown) date) wound VAC will be unknown) removed and changed to a wet-to-dry dressing (unknown) (no (unknown) (unknown) dietary, (units (unkno wn) date) lifestyle, unknown) exercise, and weight changes. (unknown) (no (unknown) (unknown) discharged to (units ( unknown) date) [facility] and unknown) resided in [facility] until he ran out of coverage (unknown) (no (unknown) (unknown) docusate sodium (units (unknown) date) 100 mg Capsule unknown) (unknown) (no (unknown) (unknown) erythema resolved (units (unknown) date) unknown) (unknown) (no (unknown) (unknown) follow-up (units (unkn own) date) appointment unknown) . When patient was examined by home health nurse (unknown) (no (unknown) (unknown) for insurance and (units (unknown) date) then was sent home unknown) he was unable to function home CAD (unknown) (no (unknown) (unknown) for [place] [facility] (units ( unknown) date) wound care. 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 Patient admitted to the [facility] following 5 (unknown) (no (unknown) (unknown) independent ADLs (units (unknown) date) until unknown) approximately 3-4 months ago when he started to have (unknown) (no (unknown) (unknown) infection), (units (un known) date) intermittent unknown) catheterization during day + Schaeffer nightly patient was (unknown) (no (unknown) (unknown) lesion- healing, (units (unknown) date) right testicle unknown) (tennis ball size) is significantly larger (non (unknown) (no (unknown) (unknown) lidocaine 5 % (units ( unknown) date) Adhesive unknown) Patch,Medicated (unknown) (no (unknown) (unknown) lidocaine 5 % (units ( unknown) date) adhesive unknown) patch,medicated (unknown) (no (unknown) (unknown) lipase, (units (unkno wn) date) procalcitonin unknown) COVID are all negative. Patient's urinalysis positive for (unknown) (no (unknown) (unknown) management, as (units (unknown) date) well as physical unknown) therapy due to decreased mobility and falls (unknown) (no (unknown) (unknown) nitrates and (units (un known) date) bacteria culture unknown) pending, sofa score 0, EKG sinus rhythm rate of 73 (unknown) (no (unknown) (unknown) no bruits (units (unkn own) date) unknown) (unknown) (no (unknown) (unknown) nonspecific ST (units (unknown) date) and T-wave unknown) changes. CT of abdomen pelvis demonstrate posterior (unknown) (no (unknown) (unknown) noted edema mild (units (unknown) date) non-pitting +1, no unknown) erythema, slighthly warmer to touch, than (unknown) (no (unknown) (unknown) oxygen at home. (units (unknown) date) WBC 12.3, unknown) neutrophils 7400, eos 500, baso 200, H+H 12.9/40, MCV (unknown) (no (unknown) (unknown) pacemaker on (units (u nknown) date) chronic unknown) anticoagulation, present on admission (unknown) (no (unknown) (unknown) pain, shortness (units (unknown) date) in breath. unknown) (unknown) (no (unknown) (unknown) patient's obesity (units (unknown) date) increases the unknown) difficulty and complexity of medical and/or (unknown) (no (unknown) (unknown) penile ulceration (units (unknown) date) stage II, acute,? unknown) present on admission and active. (unknown) (no (unknown) (unknown) present on (units (unk nown) date) admission and unknown) active. (unknown) (no (unknown) (unknown) present on (units (unk nown) date) admission unknown) (unknown) (no (unknown) (unknown) region of the (units ( unknown) date) coccyx and lower unknown) sacral area. Patient admitted for sacral (unknown) (no (unknown) (unknown) reports that he (units (unknown) date) was treated for unknown) right leg edema started Lasix and then (unknown) (no (unknown) (unknown) right pedal (units (un known) date) pulses intact, unknown) sensation intact, right lower leg no edema present, (unknown) (no (unknown) (unknown) sacral ulceration (units (unknown) date) with cellulitis unknown) changes and inflammation extending to the (unknown) (no (unknown) (unknown) sacrum and unable (units (unknown) date) to walk due to unknown) nerve injury.? He does not report fevers, (unknown) (no (unknown) (unknown) secondary to (units (u nknown) date) deteriorating unknown) paraplegic.) (unknown) (no (unknown) (unknown) serious falls, (units ( unknown) date) resulting in unknown) worsening weakness, worsening right leg pain, losing (unknown) (no (unknown) (unknown) she immediately (units (unknown) date) called 911 for unknown) transport to [facility]. He has no specific (unknown) (no (unknown) (unknown) significant (units (un known) date) multiple falls. unknown) (unknown) (no (unknown) (unknown) skin is cool to (units (unknown) date) touch pale, pulses unknown) intact and sensation. (unknown) (no (unknown) (unknown) strep. (units (unkno wn) date) unknown) (unknown) (no (unknown) (unknown) such as morbidity (units (unknown) date) and mortality as unknown) well as impaired wound healing.? (unknown) (no (unknown) (unknown) surg follow up (units (unknown) date) unknown) (unknown) (no (unknown) (unknown) surgical (units (unkno wn) date) interventions, unknown) management and increases the chances of poor outcome (unknown) (no (unknown) (unknown) tender no wound (units (unknown) date) present, than left unknown) (golfball),? Left? lower leg nontender, (unknown) (no (unknown) (unknown) the ability to (units (unknown) date) perform ADLs and unknown) become completely wheelchair-bound. Patient (unknown) (no (unknown) (unknown) tissue appeared (units (unknown) date) to be in unknown) superficial layers only. (unknown) (no (unknown) (unknown) to be applied for (units (unknown) date) [facility] [place] (unknown) (no (unknown) (unknown) to consult-plan (units (unknown) date) to take to the OR unknown) for debridement (unknown) (no (unknown) (unknown) to obesity as it (units (unknown) date) relates to chronic unknown) illnesses:, and acute illness.? The (unknown) (no (unknown) (unknown) transported (units (un known) date) following home unknown) nurse visit evaluation of a sacral decubitus ulcer. (unknown) (no (unknown) (unknown) ulcer, and UTI (units (unknown) date) -Dr. Bermudez took unknown) to the OR for debridement, Necrotic tissue (unknown) (no (unknown) (unknown) unchanged from (units (unknown) date) admit- december unknown) continue based edema/fluid overload . (unknown) (no (unknown) (unknown) until new wound (units (unknown) date) VAC be placed at unknown) [facility] (which has already been arranged) . (unknown) (no (unknown) (unknown) urine or stool, (units (unknown) date) does have dysuria, unknown) notes chronic low back pain, denies chest (unknown) (no (unknown) (unknown) wound 11.5 x 8 x (units (unknown) date) 0.1 unstageable unknown) pressure injury covering the sacral region (unknown) (no (unknown) (unknown) wound care/wound (units (unknown) date) VAC unknown) (unknown) (no (unknown) (unknown) wound stage 2, (units (unknown) date) patient was sent unknown) home on Augmentin discharged -scheduled Result panel 89 (unknown) (no (unknown) (unknown) (no value) (units (unk nown) date) unknown) (unknown) (no (unknown) (unknown) (past 8 hours): (units (unknown) date) unknown) (unknown) (no (unknown) (unknown) (reported (units (unkn own) date) secondary to unknown) laminectomy in 2002 that resulted in spinal Staph (unknown) (no (unknown) (unknown) - Continue PT, OT (units (unknown) date) unknown) (unknown) (no (unknown) (unknown) -Antibiotics as (units (unknown) date) noted above. unknown) (unknown) (no (unknown) (unknown) -Continue (units (unkn own) date) augmentin based on unknown) wound culture results with proteus and a group B (unknown) (no (unknown) (unknown) -Dr. Bermudez ,? (units (unknown) date) OR for debridement unknown) performed couple of days ago. Necrotic (unknown) (no (unknown) (unknown) -Dr. Bermudez S/P (units (unknown) date) I+D unknown) (unknown) (no (unknown) (unknown) -EKG sinus rhythm (units (unknown) date) rate 73 with unknown) nonspecific ST and T-wave changes (unknown) (no (unknown) (unknown) -Schaeffer in (units (unkn own) date) place?(chronic) unknown) (unknown) (no (unknown) (unknown) -No DVT on (units (unk nown) date) ultrasound. unknown) (unknown) (no (unknown) (unknown) -PT/OT evaluation (units (unknown) date) completed unknown) (unknown) (no (unknown) (unknown) -antibiotics (units (u nknown) date) narrowed to unknown) augmentin based on wound culture results with proteus (unknown) (no (unknown) (unknown) -continue Coreg (units (unknown) date) and lisinopril. unknown) (unknown) (no (unknown) (unknown) -continue (units (unkn own) date) lidocaine patches, unknown) gabapentin (unknown) (no (unknown) (unknown) -continue (units (unkn own) date) simvastatin unknown) changed to atorvastatin for hospital formulary. (unknown) (no (unknown) (unknown) -dietary consult (units (unknown) date) ordered regarding unknown) nutritional education and information for (unknown) (no (unknown) (unknown) -discharge (units (unk nown) date) patient is being unknown) transferred to [facility] on a regular (unknown) (no (unknown) (unknown) -erythema (units (unkn own) date) resolved no sign unknown) lower extremity wounds, edema nonpitting +1 appears (unknown) (no (unknown) (unknown) -schaeffer (he uses (units (unknown) date) self cath and unknown) nocturnal schaeffer at home) (unknown) (no (unknown) (unknown) -held Lasix due (units (unknown) date) to chronically low unknown) BP, mild right lower leg edema noted (unknown) (no (unknown) (unknown) -no previous (units (u nknown) date) documentation in unknown) our system (unknown) (no (unknown) (unknown) -pain (units (unkno wn) date) management,? 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 (units (unknown) date) unknown) (unknown) (no (unknown) (unknown) -the patient is (units (unknown) date) at much higher unknown) risk for medical and surgical complications due (unknown) (no (unknown) (unknown) -troponins (units (unk nown) date) negative. unknown) (unknown) (no (unknown) (unknown) 09/16/22 17:37 (units (unknown) date) unknown) (unknown) (no (unknown) (unknown) 09/16/22 22:48 (units (unknown) date) unknown) (unknown) (no (unknown) (unknown) 09/17/22 04:00 (units (unknown) date) unknown) (unknown) (no (unknown) (unknown) 09/17/22 04:01 (units (unknown) date) unknown) (unknown) (no (unknown) (unknown) 09/17/22 04:11 (units (unknown) date) unknown) (unknown) (no (unknown) (unknown) 09/19/22 05:06 (units (unknown) date) unknown) (unknown) (no (unknown) (unknown) 09/23/22 1142 (units ( unknown) date) unknown) (unknown) (no (unknown) (unknown) 09/23/22 (units (unkno wn) date) unknown) (unknown) (no (unknown) (unknown) [id number] (units (unkno wn) date) unknown) (unknown) (no (unknown) (unknown) 04:00 (units (unkno wn) date) unknown) (unknown) (no (unknown) (unknown) 1 ea topical (units (u nknown) date) DAILY Qty: 30 0RF unknown) (unknown) (no (unknown) (unknown) 1 patch (units (unkno wn) date) transdermal Q12H unknown) PRN (Reason: Pain, Mild) (unknown) (no (unknown) (unknown) 1 puff INHALATION (units (unknown) date) PRN PRN (Reason: unknown) Wheezing) (unknown) (no (unknown) (unknown) 1 tab PO BID Qty: (units (unknown) date) 8 0RF unknown) (unknown) (no (unknown) (unknown) 1. Sacral (units (unkn own) date) decubitus ulcer unknown) acute, in an incomplete SCI paraplegic, chronic, (unknown) (no (unknown) (unknown) 100 mg PO BID (units ( unknown) date) Qty: 60 0RF unknown) (unknown) (no (unknown) (unknown) 18, O2 saturation (units (unknown) date) 95% on room unknown) air-the patient states that he does not require (unknown) (no (unknown) (unknown) 2. UTI, (units (unkno wn) date) associated with unknown) chronic indwelling catheter. Intermittent self (unknown) (no (unknown) (unknown) 2.5 mg PO BID (units ( unknown) date) unknown) (unknown) (no (unknown) (unknown) 25 mg PO BID Qty: (units (unknown) date) 0 unknown) (unknown) (no (unknown) (unknown) 3. 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 Congestive (units ( unknown) date) heart failure (No unknown) ECHO available), chronic, with a history of MN (unknown) (no (unknown) (unknown) 40 mg PO DAILY (units (unknown) date) unknown) (unknown) (no (unknown) (unknown) 5 falls resulting (units (unknown) date) in progressive leg unknown) weakness and right leg only. (unknown) (no (unknown) (unknown) 5. Right leg (units (u nknown) date) edema, with unknown) erythema, acute, present on admission and improving. (unknown) (no (unknown) (unknown) 6. Hypertension (units (unknown) date) essential,? unknown) present on admission and stable. (unknown) (no (unknown) (unknown) 600 mg PO TID (units ( unknown) date) unknown) (unknown) (no (unknown) (unknown) 7. Chronic low (units (unknown) date) back, present on unknown) admission and stable. (unknown) (no (unknown) (unknown) 77.4, MCH 24.7, (units (unknown) date) platelets 407, unknown) bicarb 33, alk-phos 148, INR stable 1.3, lactate, (unknown) (no (unknown) (unknown) 8. (units (unkno wn) date) Hyperlipidemia,? unknown) present on admission and stable. (unknown) (no (unknown) (unknown) 9. Morbid obesity (units (unknown) date) secondary to unknown) incomplete SCI paraplegic, acute on chronic, (unknown) (no (unknown) (unknown) ?-as evidence by (units (unknown) date) BMI 44.3 unknown) (unknown) (no (unknown) (unknown) Abdomen:? Soft, (units (unknown) date) obese, nontender, unknown) good bowel tones, no flank pain-indwelling (unknown) (no (unknown) (unknown) Age/Sex: 81 / M (units (unknown) date) unknown) (unknown) (no (unknown) (unknown) Assessment and (units (unknown) date) Plan unknown) (unknown) (no (unknown) (unknown) Assessment: (units (un known) date) unknown) (unknown) (no (unknown) (unknown) At the time of (units ( unknown) date) admit patient's unknown) vitals are stable temp 98.2?, BP 131/58, HR 76, R (unknown) (no (unknown) (unknown) Blood Pressure (units (unknown) date) 90/54 L unknown) (unknown) (no (unknown) (unknown) Kalen Meza, (units (unknown) date) [Physician] unknown) (unknown) (no (unknown) (unknown) COVID PCR:? (units (un known) date) Negative unknown) (unknown) (no (unknown) (unknown) Cardiac:? (units (unkn own) date) Pacemaker in the unknown) left upper chest, Regular rate and rhythm no murmurs (unknown) (no (unknown) (unknown) Catheter: 2-way (units (unknown) date) Schaeffer unknown) (unknown) (no (unknown) (unknown) Chief complaint: (units (unknown) date) pressure sore unknown) (unknown) (no (unknown) (unknown) Chronic (units (unkno wn) date) anticoagulation unknown) (unknown) (no (unknown) (unknown) Chronic (units (unkno wn) date) indwelling Schaeffer unknown) catheter (unknown) (no (unknown) (unknown) Armani Cheema is (units (unknown) date) an 81-year-old unknown) male CHF, MN stent x2, pacer on chronic Eliquis, (unknown) (no (unknown) (unknown) Armani Gamboa is (units (unknown) date) an 81-year-old unknown) male admitted for an acute sacral decubitus (unknown) (no (unknown) (unknown) Code status:Full (units (unknown) date) unknown) (unknown) (no (unknown) (unknown) Cognitive/behavio (units (unknown) date) ral status at unknown) discharge: oriented (unknown) (no (unknown) (unknown) Comment: (units (unkno wn) date) Decubitus ulcer, unknown) incomplete paraplegic (unknown) (no (unknown) (unknown) Comment: Sacral (units (unknown) date) decubiti, right unknown) penile shaft wound, rt ashraf (unknown) (no (unknown) (unknown) Comment: (units (unkno wn) date) unknown) (unknown) (no (unknown) (unknown) Congestive heart (units (unknown) date) failure unknown) (unknown) (no (unknown) (unknown) Consult to (units (unk nown) date) Dietitian, Adult unknown) Routine (unknown) (no (unknown) (unknown) 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 (unknown) (no (unknown) (unknown) Consult to (units (unk nown) date) Occupational unknown) Therapy Evaluate + Treat (unknown) (no (unknown) (unknown) Consult to (units (unk nown) date) Physical Therapy unknown) Evaluate + Treat (unknown) (no (unknown) (unknown) Consult to (units (unk nown) date) Physician Routine unknown) (unknown) (no (unknown) (unknown) Consult to Wound (units (unknown) date) Care Urgent unknown) (unknown) (no (unknown) (unknown) Consulting (units (unk nown) date) Provider: unknown) Jacquelyn Bermudez (unknown) (no (unknown) (unknown) Consulting (units (unk nown) date) Provider: unknown) [facility] (unknown) (no (unknown) (unknown) Consults: (units (unkn own) date) unknown) (unknown) (no (unknown) (unknown) Continued (units (unkn own) date) unknown) (unknown) (no (unknown) (unknown) Coronary artery (units (unknown) date) disease unknown) (unknown) (no (unknown) (unknown) : 1940 (units (unknown) date) Acct:[id number] unknown) (unknown) (no (unknown) (unknown) Date of Service: (units (unknown) date) 09/16/22 unknown) (unknown) (no (unknown) (unknown) Date of (units (unkno wn) date) admission: unknown) (unknown) (no (unknown) (unknown) Deep Vein (units (unkn own) date) Thrombosis/Pulmona unknown) ry Embolism Present on Admission: No (unknown) (no (unknown) (unknown) Diet/Activity/Nikolai (units (unknown) date) atments unknown) (unknown) (no (unknown) (unknown) Discharge (units (unkn own) date) Assessment + Plan unknown) (unknown) (no (unknown) (unknown) Discharge Data (units (unknown) date) unknown) (unknown) (no (unknown) (unknown) Discharge Date: (units (unknown) date) 09/23/22 unknown) (unknown) (no (unknown) (unknown) Discharge (units (unkn own) date) Diagnosis: unknown) (unknown) (no (unknown) (unknown) Discharge Plan (units (unknown) date) unknown) (unknown) (no (unknown) (unknown) Discharge (units (unkn own) date) Providers unknown) (unknown) (no (unknown) (unknown) Discharge Summary (units (unknown) date) unknown) (unknown) (no (unknown) (unknown) Discharge orders (units (unknown) date) + Medications unknown) (unknown) (no (unknown) (unknown) Discharge (units (unkn own) date) provider: unknown) (unknown) (no (unknown) (unknown) Discontinued (units (u nknown) date) unknown) (unknown) (no (unknown) (unknown) Eliquis 2.5 mg (units (unknown) date) tablet unknown) (unknown) (no (unknown) (unknown) Exam Narrative: (units (unknown) date) unknown) (unknown) (no (unknown) (unknown) Exam (units (unkno wn) date) unknown) (unknown) (no (unknown) (unknown) Extremities:? (units ( unknown) date) muscle atrophy, unknown) well perfused (unknown) (no (unknown) (unknown) Family History (units (unknown) date) (Reviewed 09/23/22 unknown) @ 11:22 by BRANDAN Montemayor) (unknown) (no (unknown) (unknown) Father (units (unknown) date) Congestive heart unknown) failure (unknown) (no (unknown) (unknown) Schaeffer in place (units (unknown) date) unknown) (unknown) (no (unknown) (unknown) Follow (units (unkno wn) date) up/Referrals: unknown) (unknown) (no (unknown) (unknown) Fraction of (units (un known) date) Inspired Oxygen 28 unknown) (unknown) (no (unknown) (unknown) Functional status (units (unknown) date) at discharge: bed unknown) bound (unknown) (no (unknown) (unknown) General:?Well-nou (units (unknown) date) rished unknown) well-developed elderly male, in no acute distress. (unknown) (no (unknown) (unknown) HEENT:? 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) (unknown) (no (unknown) (unknown) History of (units (unk nown) date) Present Illness unknown) (unknown) (no (unknown) (unknown) History of (units (unk nown) date) coronary artery unknown) stent placement (unknown) (no (unknown) (unknown) History of (units (unk nown) date) laminectomy unknown) (unknown) (no (unknown) (unknown) 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 (unknown) (no (unknown) (unknown) Hospital Course (units (unknown) date) unknown) (unknown) (no (unknown) (unknown) Hospital Course: (units (unknown) date) unknown) (unknown) (no (unknown) (unknown) Hyperlipidemia (units (unknown) date) unknown) (unknown) (no (unknown) (unknown) Hypertension (units (u nknown) date) unknown) (unknown) (no (unknown) (unknown) Intermittent (units (u nknown) date) self-catheterizati unknown) on of bladder (unknown) (no (unknown) (unknown) [facility] (units (unknown) date) [address] unknown) [place] [id number] (unknown) (no (unknown) (unknown) Vanessa Krishnamurthy, DO (units (unknown) date) unknown) (unknown) (no (unknown) (unknown) Labs (units (unkno wn) date) unknown) (unknown) (no (unknown) (unknown) Medical History (units (unknown) date) (Reviewed 09/23/22 unknown) @ 11:22 by Izabella Serrano [facility]) (unknown) (no (unknown) (unknown) Mother (units (unknown) date) Cancer unknown) (unknown) (no (unknown) (unknown) Narrative (units (unkn own) date) unknown) (unknown) (no (unknown) (unknown) Narrative: (units (unk nown) date) unknown) (unknown) (no (unknown) (unknown) Izabella Serrano, (units (unknown) date) [facility] unknown) (unknown) (no (unknown) (unknown) Neck:? No JVD, (units (unknown) date) supple unknown) (unknown) (no (unknown) (unknown) Neurologic:? (units (u nknown) date) Minimal sensation unknown) from lower abdomen down.? Significant weakness (unknown) (no (unknown) (unknown) New (units (unkno wn) date) unknown) (unknown) (no (unknown) (unknown) Objective (units (unkn own) date) unknown) (unknown) (no (unknown) (unknown) Other facility: (units (unknown) date) [facility] unknown) (unknown) (no (unknown) (unknown) Overall status at (units (unknown) date) discharge: other unknown) (Patient requires long-term wound care (unknown) (no (unknown) (unknown) Oxygen Delivery (units (unknown) date) Method Nasal unknown) Cannula (unknown) (no (unknown) (unknown) Oxygen Flow Rate (units (unknown) date) 2 unknown) (unknown) (no (unknown) (unknown) PFSH (units (unkno wn) date) unknown) (unknown) (no (unknown) (unknown) Pacemaker (units (unkn own) date) unknown) (unknown) (no (unknown) (unknown) 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) (unknown) (no (unknown) (unknown) Patient (units (unkno wn) date) Disposition: SNF unknown) (unknown) (no (unknown) (unknown) Patient at he had (units (unknown) date) been using walker unknown) or crutches and was able to perform (unknown) (no (unknown) (unknown) Patient was (units (un known) date) placed on a wound unknown) VAC, which will be removed, wet-to-dry dressing (unknown) (no (unknown) (unknown) Patient: (units (unkno wn) date) Armani Cheema unknown) MR#: [id number] (unknown) (no (unknown) (unknown) Physician (units (unkn own) date) Instructions: unknown) Evaluate and Treat (unknown) (no (unknown) (unknown) Physician (units (unkn own) date) Instructions: unknown) Evaluate and treat (unknown) (no (unknown) (unknown) Plan of (units (unkno wn) date) Treatment: unknown) (unknown) (no (unknown) (unknown) Prescriptions: (units (unknown) date) unknown) (unknown) (no (unknown) (unknown) Primary Care (units (u nknown) date) Provider: unknown) Vanessa Krishnamurthy (unknown) (no (unknown) (unknown) Primary care (units (u nknown) date) physician: unknown) (unknown) (no (unknown) (unknown) Provider (units (unkno wn) date) Discharge Comment: unknown) follow up with wound care clinic. No need for gen (unknown) (no (unknown) (unknown) Provider (units (unkno wn) date) unknown) (unknown) (no (unknown) (unknown) Provider: (units (unkn own) date) Izabella Serrano unknown) DOCUMENT COORDINATOR-BC (unknown) (no (unknown) (unknown) Psych:? (units (unkno wn) date) Cooperative, unknown) appropriate insight and affect (unknown) (no (unknown) (unknown) Pulse Oximetry 93 (units (unknown) date) unknown) (unknown) (no (unknown) (unknown) Pulse Rate 66 (units ( unknown) date) unknown) (unknown) (no (unknown) (unknown) Quality (units (unkno wn) date) unknown) (unknown) (no (unknown) (unknown) Reason For Exam: (units (unknown) date) Decubitus ulcer unknown) BMI 44.3 (unknown) (no (unknown) (unknown) Reason for (units (unk nown) date) consultation: unknown) Sacral decubitus ulcer (unknown) (no (unknown) (unknown) Respiratory Rate (units (unknown) date) 20 unknown) (unknown) (no (unknown) (unknown) Respiratory:? (units ( unknown) date) Lungs all bragg unknown) clear to auscultation. (unknown) (no (unknown) (unknown) Result Diagrams: (units (unknown) date) unknown) (unknown) (no (unknown) (unknown) Vanessa Krishnamurthy DO (units (unknown) date) [Primary Care unknown) Provider] (unknown) (no (unknown) (unknown) Signed (units (unkno wn) date) By:<Electronically unknown) signed by Izabella Serrano> (unknown) (no (unknown) (unknown) Skin:? Large (units (u nknown) date) sacral decubitus unknown) ulcer with wound vac in place, right-sided penile (unknown) (no (unknown) (unknown) Smoking Status: (units (unknown) date) Never smoker unknown) (unknown) (no (unknown) (unknown) Social History (units (unknown) date) (Reviewed 09/23/22 unknown) @ 11:22 by INA Montemayor) (unknown) (no (unknown) (unknown) 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, incomplete unknown) (unknown) (no (unknown) (unknown) Stand Alone (units (un known) date) Forms: Patient unknown) Portal/API (unknown) (no (unknown) (unknown) Status at (units (unkn own) date) Discharge unknown) (unknown) (no (unknown) (unknown) Summary (units (unkno wn) date) unknown) (unknown) (no (unknown) (unknown) Surgical History (units (unknown) date) (Reviewed 09/23/22 unknown) @ 11:22 by INA Montemayor) (unknown) (no (unknown) (unknown) Surrogate (units (unkn own) date) decision maker:? unknown) Bhavna who is spouse (unknown) (no (unknown) (unknown) Temperature 97.3 (units (unknown) date) F L unknown) (unknown) (no (unknown) (unknown) Time Spent with (units (unknown) date) Patient unknown) (unknown) (no (unknown) (unknown) Time spent: Less (units (unknown) date) than 30 minutes unknown) (unknown) (no (unknown) (unknown) Transfer to (units (un known) date) [facility] skilled unknown) [facility] for continued chronic (unknown) (no (unknown) (unknown) VTE (units (unkno wn) date) unknown) (unknown) (no (unknown) (unknown) Visit (units (unkno wn) date) Report/Discharge unknown) Packet (unknown) (no (unknown) (unknown) Vital Signs (units (un known) date) unknown) (unknown) (no (unknown) (unknown) [facility] ED due to (units (unknown) date) lack of placement unknown) since September 03, 2022 Diagnosed with sacral (unknown) (no (unknown) (unknown) [Embedded Image (units (unknown) date) Not Available] unknown) (unknown) (no (unknown) (unknown) active. (units (unkno wn) date) unknown) (unknown) (no (unknown) (unknown) admitted but (units (u nknown) date) remained in the ED unknown) for approximately 10 days where he was boarding (unknown) (no (unknown) (unknown) albuterol sulfate (units (unknown) date) [ProAir HFA] 90 unknown) mcg/actuation HFA aerosol inhaler (unknown) (no (unknown) (unknown) amoxicillin-pot (units (unknown) date) clavulanate unknown) 875-125 mg Tablet (unknown) (no (unknown) (unknown) and a group B (units ( unknown) date) strep. unknown) (unknown) (no (unknown) (unknown) and unable to bear (units (unknown) date) weight with lower unknown) extremities, onset 3-4 months ago following (unknown) (no (unknown) (unknown) appeared to be in (units (unknown) date) superficial layers unknown) only. Placed on augmentin based on wound (unknown) (no (unknown) (unknown) atorvastatin 40 (units (unknown) date) mg tablet unknown) (unknown) (no (unknown) (unknown) bilateral (units (unkn own) date) buttocks, right unknown) penile shaft lesion wound likely associated with (unknown) (no (unknown) (unknown) carvedilol (units (unk nown) date) [Coreg] 25 MG unknown) tablet (unknown) (no (unknown) (unknown) catheterization (units (unknown) date) secondary to unknown) spinal cord injury, acute on chronic, right-sided (unknown) (no (unknown) (unknown) chronic for (units (un known) date) patient's baseline unknown) s/p knee surgery. (unknown) (no (unknown) (unknown) chronic (units (unkno wn) date) indwelling Schaeffer unknown) catheter use at bedtime, and a left lateral malleolus (unknown) (no (unknown) (unknown) complaints and (units (unknown) date) has no specific unknown) pain with minimal sensation to the area of the (unknown) (no (unknown) (unknown) continuing (units (unkn own) date) worsening unknown) weakness-the patient then went to would be Hospital was not (unknown) (no (unknown) (unknown) cough, chills, (units (unknown) date) abdominal pain, unknown) vomiting, body aches, chills, diarrhea, blood in (unknown) (no (unknown) (unknown) culture results (units (unknown) date) with proteus and a unknown) group B strep and coverage of UTI, continued. (unknown) (no (unknown) (unknown) decubitus ulcer, (units (unknown) date) UTI. Schaeffer was unknown) placed on admit today in the ED. Dr. Bermudez (unknown) (no (unknown) (unknown) deterioration,, (units (unknown) date) frequent falls), unknown) acute on chronic, present on admission and (unknown) (no (unknown) (unknown) diet, patient's (units (unknown) date) wound VAC will be unknown) removed and changed to a wet-to-dry dressing (unknown) (no (unknown) (unknown) dietary, (units (unkno wn) date) lifestyle, unknown) exercise, and weight changes. (unknown) (no (unknown) (unknown) [facility]units ( [facility] until he ran out of coverage (unknown) (no (unknown) (unknown) docusate sodium (units (unknown) date) 100 mg Capsule unknown) (unknown) (no (unknown) (unknown) erythema resolved (units (unknown) date) unknown) (unknown) (no (unknown) (unknown) follow-up (units (unkn own) date) appointment unknown) . When patient was examined by home health nurse (unknown) (no (unknown) (unknown) for insurance and (units (unknown) date) then was sent home unknown) he was unable to function home CAD (unknown) (no (unknown) (unknown) [place] [facility] (units ( unknown) date) wound care. 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 [facility] ([facility]) (no (unknown) (unknown) independent ADLs (units (unknown) date) until unknown) approximately 3-4 months ago when he started to have (unknown) (no (unknown) (unknown) infection), (units (un known) date) intermittent unknown) catheterization during day + Schaeffer nightly patient was (unknown) (no (unknown) (unknown) lesion- healing, (units (unknown) date) right testicle unknown) (tennis ball size) is significantly larger (non (unknown) (no (unknown) (unknown) lidocaine 5 % (units ( unknown) date) Adhesive unknown) Patch,Medicated (unknown) (no (unknown) (unknown) lidocaine 5 % (units ( unknown) date) adhesive unknown) patch,medicated (unknown) (no (unknown) (unknown) lipase, (units (unkno wn) date) procalcitonin unknown) COVID are all negative. Patient's urinalysis positive for (unknown) (no (unknown) (unknown) management, as (units (unknown) date) well as physical unknown) therapy due to decreased mobility and falls (unknown) (no (unknown) (unknown) nitrates and (units (un known) date) bacteria culture unknown) pending, sofa score 0, EKG sinus rhythm rate of 73 (unknown) (no (unknown) (unknown) no bruits (units (unkn own) date) unknown) (unknown) (no (unknown) (unknown) nonspecific ST (units (unknown) date) and T-wave unknown) changes. CT of abdomen pelvis demonstrate posterior (unknown) (no (unknown) (unknown) noted edema mild (units (unknown) date) non-pitting +1, no unknown) erythema, slighthly warmer to touch, than (unknown) (no (unknown) (unknown) oxygen at home. (units (unknown) date) WBC 12.3, unknown) neutrophils 7400, eos 500, baso 200, H+H 12.9/40, MCV (unknown) (no (unknown) (unknown) pacemaker on (units (u nknown) date) chronic unknown) anticoagulation, present on admission (unknown) (no (unknown) (unknown) pain, shortness (units (unknown) date) in breath. unknown) (unknown) (no (unknown) (unknown) patient's obesity (units (unknown) date) increases the unknown) difficulty and complexity of medical and/or (unknown) (no (unknown) (unknown) penile ulceration (units (unknown) date) stage II, acute,? unknown) present on admission and active. (unknown) (no (unknown) (unknown) present on (units (unk nown) date) admission and unknown) active. (unknown) (no (unknown) (unknown) present on (units (unk nown) date) admission unknown) (unknown) (no (unknown) (unknown) region of the (units ( unknown) date) coccyx and lower unknown) sacral area. Patient admitted for sacral (unknown) (no (unknown) (unknown) reports that he (units (unknown) date) was treated for unknown) right leg edema started Lasix and then (unknown) (no (unknown) (unknown) right pedal (units (un known) date) pulses intact, unknown) sensation intact, right lower leg no edema present, (unknown) (no (unknown) (unknown) sacral ulceration (units (unknown) date) with cellulitis unknown) changes and inflammation extending to the (unknown) (no (unknown) (unknown) sacrum and unable (units (unknown) date) to walk due to unknown) nerve injury.? He does not report fevers, (unknown) (no (unknown) (unknown) secondary to (units (u nknown) date) deteriorating unknown) paraplegic.) (unknown) (no (unknown) (unknown) serious falls, (units ( unknown) date) resulting in unknown) worsening weakness, worsening right leg pain, losing (unknown) (no (unknown) (unknown) she immediately (units (unknown) date) called 911 for unknown) transport to [facility]. He has no specific (unknown) (no (unknown) (unknown) significant (units (un known) date) multiple falls. unknown) (unknown) (no (unknown) (unknown) skin is cool to (units (unknown) date) touch pale, pulses unknown) intact and sensation. (unknown) (no (unknown) (unknown) strep. (units (unkno wn) date) unknown) (unknown) (no (unknown) (unknown) such as morbidity (units (unknown) date) and mortality as unknown) well as impaired wound healing.? (unknown) (no (unknown) (unknown) surg follow up (units (unknown) date) unknown) (unknown) (no (unknown) (unknown) surgical (units (unkno wn) date) interventions, unknown) management and increases the chances of poor outcome (unknown) (no (unknown) (unknown) tender no wound (units (unknown) date) present, than left unknown) (golfball),? Left? lower leg nontender, (unknown) (no (unknown) (unknown) the ability to (units (unknown) date) perform ADLs and unknown) become completely wheelchair-bound. Patient (unknown) (no (unknown) (unknown) tissue appeared (units (unknown) date) to be in unknown) superficial layers only. (unknown) (no (unknown) (unknown) to be applied for (units (unknown) date) transport to unknown) [facility] (unknown) (no (unknown) (unknown) to consult-plan (units (unknown) date) to take to the OR unknown) for debridement (unknown) (no (unknown) (unknown) to obesity as it (units (unknown) date) relates to chronic unknown) illnesses:, and acute illness.? The (unknown) (no (unknown) (unknown) transported (units (un known) date) following home unknown) nurse visit evaluation of a sacral decubitus ulcer. (unknown) (no (unknown) (unknown) ulcer, and UTI (units (unknown) date) -Dr. Bermudez took unknown) to the OR for debridement, Necrotic tissue (unknown) (no (unknown) (unknown) unchanged from (units (unknown) date) admit- december unknown) continue based edema/fluid overload . (unknown) (no (unknown) (unknown) until new wound (units (unknown) date) VAC be placed at unknown) [facility] (which has already been arranged) . (unknown) (no (unknown) (unknown) urine or stool, (units (unknown) date) does have dysuria, unknown) notes chronic low back pain, denies chest (unknown) (no (unknown) (unknown) wound 11.5 x 8 x (units (unknown) date) 0.1 unstageable unknown) pressure injury covering the sacral region (unknown) (no (unknown) (unknown) wound care/wound (units (unknown) date) VAC unknown) (unknown) (no (unknown) (unknown) wound stage 2, (units (unknown) date) patient was sent unknown) home on Augmentin discharged scheduled Result panel 90 (unknown) (no date) (unknown) (unknown) Negative (units (unkn own) unknown) (unknown) (no date) (unknown) (unknown) Negative (units (unkn own) unknown) Result panel 91 (unknown) (no (unknown) (unknown) (no value) (units (unk nown) date) unknown) (unknown) (no (unknown) (unknown) [id number] (units (unkno wn) date) unknown) (unknown) (no (unknown) (unknown) 12/17/22 (units (unkno wn) date) unknown) (unknown) (no (unknown) (unknown) [address] [place] [address] (units (unknown) date) unknown) (unknown) (no (unknown) (unknown) 7:48. (units (unkno wn) date) unknown) (unknown) (no (unknown) (unknown) Accession (units (unkn own) date) Number: unknown) [id number] (unknown) (no (unknown) (unknown) Age/Sex: 82 / M (units (unknown) date) Date of Service: unknown) (unknown) (no (unknown) (unknown) [place] (units ( unknown) date) [id number] unknown) (unknown) (no (unknown) (unknown) Approved by: (units (u nknown) date) Jonathan Aguilar, unknown) Alberto on 12/17/2022 at 17:08 (unknown) (no (unknown) (unknown) COMPARISON: (units (un known) date) [facility], unknown) US, US PERIPH VENOUS LOW EXTREM RT, 09/17/2022, (unknown) (no (unknown) (unknown) : 1940 (units (unknown) date) Acct:[id number] unknown) (unknown) (no (unknown) (unknown) Dictated by: (units (u nknown) date) sonido Carreon) Alberto on 12/17/2022 at 17:07 (unknown) (no (unknown) (unknown) FINDINGS: (units (unkn own) date) unknown) (unknown) (no (unknown) (unknown) IMPRESSION: (units (un known) date) unknown) (unknown) (no (unknown) (unknown) INDICATIONS: leg (units (unknown) date) swelling unknown) (unknown) (no (unknown) (unknown) [facility] (units (unknown) date) unknown) (unknown) (no (unknown) (unknown) Left: The common (units (unknown) date) femoral, femoral unknown) and popliteal veins are normally compressible, (unknown) (no (unknown) (unknown) Loc: ED (units (unkno wn) date) unknown) (unknown) (no (unknown) (unknown) Negative for (units (u nknown) date) deep venous unknown) thrombosis. (unknown) (no (unknown) (unknown) Ordering (units (unkno wn) date) Provider: unknown) Deondre Murdock P.A-C (unknown) (no (unknown) (unknown) PROCEDURE: US (units ( unknown) date) PERIPH VENOUS LOW unknown) EXTREM BI (unknown) (no (unknown) (unknown) Patient: (units (unkno wn) date) Armani Cheema L unknown) MR#: [id number] (unknown) (no (unknown) (unknown) Procedure: US (units ( unknown) date) periph venous low unknown) extrem bi (unknown) (no (unknown) (unknown) Real-time (units (unkn own) date) imaging, as well unknown) as color and pulse Doppler interrogation, were (unknown) (no (unknown) (unknown) Right: The (units (unk nown) date) common femoral, unknown) femoral and popliteal veins are normally (unknown) (no (unknown) (unknown) Signed (units (unkno wn) date) unknown) (unknown) (no (unknown) (unknown) TECHNIQUE: (units (unk nown) date) unknown) (unknown) (no (unknown) (unknown) Ultrasound (units (unk nown) date) Report unknown) (unknown) (no (unknown) (unknown) and free (units (unkno wn) date) unknown) (unknown) (no (unknown) (unknown) compressible, (units ( unknown) date) and unknown) (unknown) (no (unknown) (unknown) free of (units (unkno wn) date) intraluminal unknown) thrombus. Color and pulse Doppler demonstrate normal (unknown) (no (unknown) (unknown) intravascular (units ( unknown) date) flow. There is unknown) normal augmentation response to distal compression (unknown) (no (unknown) (unknown) maneuver. (units (unkn own) date) unknown) (unknown) (no (unknown) (unknown) of intraluminal (units (unknown) date) thrombus. Color unknown) and pulse Doppler demonstrate normal phasic (unknown) (no (unknown) (unknown) performed of (units (u nknown) date) unknown) (unknown) (no (unknown) (unknown) phasic (units (unkno wn) date) unknown) (unknown) (no (unknown) (unknown) the deep veins (units (unknown) date) of both legs from unknown) the inguinal ligament to the popliteal fossa. Result panel 92 (unknown) (no (unknown) (unknown) (no value) (units (unk nown) date) unknown) (unknown) (no (unknown) (unknown) 09/17/22 (units (unkno wn) date) unknown) (unknown) (no (unknown) (unknown) [id number] (units (unkno wn) date) unknown) (unknown) (no (unknown) (unknown) 12/17/22 16:41 (units (unknown) date) unknown) (unknown) (no (unknown) (unknown) 12/17/22 17:14 (units (unknown) date) unknown) (unknown) (no (unknown) (unknown) 12/17/22 (units (unkno wn) date) unknown) (unknown) (no (unknown) (unknown) 1 ea topical (units (u nknown) date) DAILY Qty: 30 0RF unknown) (unknown) (no (unknown) (unknown) 1 patch (units (unkno wn) date) transdermal Q12H unknown) PRN (Reason: Pain, Mild) (unknown) (no (unknown) (unknown) 1 puff INHALATION (units (unknown) date) PRN PRN (Reason: unknown) Wheezing) (unknown) (no (unknown) (unknown) 1 tab PO BID Qty: (units (unknown) date) 8 0RF unknown) (unknown) (no (unknown) (unknown) 100 mg PO BID (units ( unknown) date) Qty: 60 0RF unknown) (unknown) (no (unknown) (unknown) 14:41 12/17/22 (units (unknown) date) unknown) (unknown) (no (unknown) (unknown) 15:51 (units (unkno wn) date) unknown) (unknown) (no (unknown) (unknown) 2.5 mg PO BID (units ( unknown) date) unknown) (unknown) (no (unknown) (unknown) 25 mg PO BID Qty: (units (unknown) date) 0 unknown) (unknown) (no (unknown) (unknown) 40 mg PO DAILY (units (unknown) date) unknown) (unknown) (no (unknown) (unknown) 600 mg PO TID (units ( unknown) date) unknown) (unknown) (no (unknown) (unknown) 82-year-old male (units (unknown) date) with past medical unknown) history spinal cord injury, decubitus (unknown) (no (unknown) (unknown) Age/Sex: 82 / M (units (unknown) date) unknown) (unknown) (no (unknown) (unknown) Allergies (units (unkn own) date) unknown) (unknown) (no (unknown) (unknown) Allergy/AdvReac (units (unknown) date) Type Severity unknown) Reaction Status Date / Time (unknown) (no (unknown) (unknown) Blood Pressure (units (unknown) date) 131/73 12/17/22 unknown) 14:41 (unknown) (no (unknown) (unknown) Blood Pressure (units (unknown) date) unknown) (unknown) (no (unknown) (unknown) Chief complaint: (units (unknown) date) Extremity unknown) Problem,Nontraumat ic (unknown) (no (unknown) (unknown) Chronic (units (unkno wn) date) anticoagulation unknown) (unknown) (no (unknown) (unknown) Chronic (units (unkno wn) date) indwelling Schaeffer unknown) catheter (unknown) (no (unknown) (unknown) Congestive heart (units (unknown) date) failure unknown) (unknown) (no (unknown) (unknown) 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 (unknown) (no (unknown) (unknown) Coronary artery (units (unknown) date) disease unknown) (unknown) (no (unknown) (unknown) Course (units (unkno wn) date) unknown) (unknown) (no (unknown) (unknown) : 1940 (units (unknown) date) Acct:[id number] unknown) (unknown) (no (unknown) (unknown) Date of Service: (units (unknown) date) 12/17/22 unknown) (unknown) (no (unknown) (unknown) Departure (units (unkn own) date) unknown) (unknown) (no (unknown) (unknown) Discharge Plan (units (unknown) date) unknown) (unknown) (no (unknown) (unknown) ED Orders (units (unkn own) date) unknown) (unknown) (no (unknown) (unknown) ER Physician: (units ( unknown) date) Mathieu,Hyma P.A-C unknown) (unknown) (no (unknown) (unknown) Eliquis 2.5 mg (units (unknown) date) tablet unknown) (unknown) (no (unknown) (unknown) Emergency Report (units (unknown) date) unknown) (unknown) (no (unknown) (unknown) Exam (units (unkno wn) date) unknown) (unknown) (no (unknown) (unknown) Family History (units (unknown) date) (Reviewed 09/23/22 unknown) @ 11:22 by Izabella Serrano [facility]) (unknown) (no (unknown) (unknown) Father (units (unknown) date) Congestive heart unknown) failure (unknown) (no (unknown) (unknown) General (units (unkno wn) date) unknown) (unknown) (no (unknown) (unknown) HPI - Extremity (units (unknown) date) Problem unknown) (unknown) (no (unknown) (unknown) HPI Narrative: (units (unknown) date) unknown) (unknown) (no (unknown) (unknown) 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) (unknown) (no (unknown) (unknown) History of (units (unk nown) date) Present Illness unknown) (unknown) (no (unknown) (unknown) History of (units (unk nown) date) coronary artery unknown) stent placement (unknown) (no (unknown) (unknown) History of (units (unk nown) date) laminectomy unknown) (unknown) (no (unknown) (unknown) 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 (unknown) (no (unknown) (unknown) Home Medications (units (unknown) date) unknown) (unknown) (no (unknown) (unknown) Hyperlipidemia (units (unknown) date) unknown) (unknown) (no (unknown) (unknown) Hypertension (units (u nknown) date) unknown) (unknown) (no (unknown) (unknown) Initial Vital (units ( unknown) date) Signs unknown) (unknown) (no (unknown) (unknown) Initial Vital (units ( unknown) date) Signs: unknown) (unknown) (no (unknown) (unknown) Intermittent (units (u nknown) date) self-catheterizati unknown) on of bladder (unknown) (no (unknown) (unknown) [facility] (units (unknown) date) [address] unknown) [place] [id number] (unknown) (no (unknown) (unknown) Medical History (units (unknown) date) (Reviewed 09/23/22 unknown) @ 11:22 [facility] (unknown) (no (unknown) (unknown) Medication (units (unk nown) date) Instructions unknown) Recorded Confirmed (unknown) (no (unknown) (unknown) Medication (units (unk nown) date) Instructions unknown) Recorded (unknown) (no (unknown) (unknown) Mild (units (unkno wn) date) unknown) (unknown) (no (unknown) (unknown) Mode of arrival: (units (unknown) date) EMS unknown) (unknown) (no (unknown) (unknown) Mother (units (unknown) date) Cancer unknown) (unknown) (no (unknown) (unknown) No Action (units (unkn own) date) unknown) (unknown) (no (unknown) (unknown) No Known Drug (units ( unknown) date) Allergies Allergy unknown) Verified 09/16/22 17:38 (unknown) (no (unknown) (unknown) Ordered: (units (unkno wn) date) unknown) (unknown) (no (unknown) (unknown) Orders (units (unkno wn) date) unknown) (unknown) (no (unknown) (unknown) Oxygen Delivery (units (unknown) date) Method Room Air unknown) 12/17/22 14:41 (unknown) (no (unknown) (unknown) Oxygen Delivery (units (unknown) date) Method Room Air unknown) (unknown) (no (unknown) (unknown) Pacemaker (units (unkn own) date) unknown) (unknown) (no (unknown) (unknown) 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) (unknown) (no (unknown) (unknown) Patient History (units (unknown) date) unknown) (unknown) (no (unknown) (unknown) Patient: (units (unkno wn) date) Armani Cheema L unknown) MR#: [id number] (unknown) (no (unknown) (unknown) Prescriptions: (units (unknown) date) unknown) (unknown) (no (unknown) (unknown) Previous Rx's (units ( unknown) date) unknown) (unknown) (no (unknown) (unknown) Pulse Oximetry 93 (units (unknown) date) 12/17/22 14:41 unknown) (unknown) (no (unknown) (unknown) Pulse Oximetry 93 (units (unknown) date) unknown) (unknown) (no (unknown) (unknown) Pulse Rate 74 (units ( unknown) date) 12/17/22 14:41 unknown) (unknown) (no (unknown) (unknown) Pulse Rate 74 (units ( unknown) date) unknown) (unknown) (no (unknown) (unknown) Pulse Rate [Right (units (unknown) date) Dorsalis Pedis] 63 unknown) (unknown) (no (unknown) (unknown) Referrals: (units (unk nown) date) unknown) (unknown) (no (unknown) (unknown) Related Data (units (u nknown) date) unknown) (unknown) (no (unknown) (unknown) Respiratory Rate (units (unknown) date) 22 12/17/22 14:41 unknown) (unknown) (no (unknown) (unknown) Respiratory Rate (units (unknown) date) 22 unknown) (unknown) (no (unknown) (unknown) Vanessa Krishnamurthy DO (units (unknown) date) [Primary Care unknown) Provider] (unknown) (no (unknown) (unknown) Signed By: (units (unk nown) date) unknown) (unknown) (no (unknown) (unknown) Smoking Status: (units (unknown) date) Never smoker unknown) (unknown) (no (unknown) (unknown) Social History (units (unknown) date) (Reviewed 09/23/22 unknown) @ 11:22 by INA Montemayor) (unknown) (no (unknown) (unknown) Source: patient (units (unknown) date) and EMS unknown) (unknown) (no (unknown) (unknown) 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, incomplete unknown) (unknown) (no (unknown) (unknown) Stated complaint: (units (unknown) date) Rt Leg Swelling unknown) (unknown) (no (unknown) (unknown) Substance Use (units ( unknown) date) Type: does not use unknown) (unknown) (no (unknown) (unknown) Surgical History (units (unknown) date) (Reviewed 09/23/22 unknown) @ 11:22 by BRANDAN Montemayor) (unknown) (no (unknown) (unknown) Temperature 98.1 (units (unknown) date) F 12/17/22 14:41 unknown) (unknown) (no (unknown) (unknown) Temperature 98.1 (units (unknown) date) F unknown) (unknown) (no (unknown) (unknown) Time Seen by (units (u nknown) date) Provider: 12/17/22 unknown) 14:35 (unknown) (no (unknown) (unknown) US periph venous (units (unknown) date) low extrem bi Stat unknown) (unknown) (no (unknown) (unknown) Vital Signs - 8 (units (unknown) date) hr unknown) (unknown) (no (unknown) (unknown) Vital Signs (units (un known) date) unknown) (unknown) (no (unknown) (unknown) Vital signs: (units (u nknown) date) unknown) (unknown) (no (unknown) (unknown) aerosol inhaler (units (unknown) date) (ProAir HFA) unknown) (unknown) (no (unknown) (unknown) albuterol sulfate (units (unknown) date) 90 mcg/actuation 1 unknown) puff inhalation PRN PRN Wheezing 09/17/22 (unknown) (no (unknown) (unknown) albuterol sulfate (units (unknown) date) [ProAir HFA] 90 unknown) mcg/actuation HFA aerosol inhaler (unknown) (no (unknown) (unknown) amoxicillin 875 (units (unknown) date) mg-potassium 1 tab unknown) PO BID #8 tabs 09/23/22 (unknown) (no (unknown) (unknown) amoxicillin-pot (units (unknown) date) clavulanate unknown) 875-125 mg Tablet (unknown) (no (unknown) (unknown) apixaban 2.5 mg (units (unknown) date) tablet (Eliquis) unknown) 2.5 mg PO BID 09/17/22 09/17/22 (unknown) (no (unknown) (unknown) atorvastatin 40 (units (unknown) date) mg tablet 40 mg PO unknown) DAILY 09/17/22 09/17/22 (unknown) (no (unknown) (unknown) atorvastatin 40 (units (unknown) date) mg tablet unknown) (unknown) (no (unknown) (unknown) carvedilol 25 mg (units (unknown) date) tablet (Coreg) 25 unknown) mg PO BID ##0 04/14/12 09/17/22 (unknown) (no (unknown) (unknown) carvedilol (units (unk nown) date) [Coreg] 25 MG unknown) tablet (unknown) (no (unknown) (unknown) clavulanate 125 (units (unknown) date) mg tablet unknown) (unknown) (no (unknown) (unknown) docusate sodium (units (unknown) date) 100 mg Capsule unknown) (unknown) (no (unknown) (unknown) docusate sodium (units (unknown) date) 100 mg capsule 100 unknown) mg PO BID #60 caps 09/23/22 (unknown) (no (unknown) (unknown) gabapentin 600 mg (units (unknown) date) tablet 600 mg PO unknown) TID 09/17/22 09/17/22 (unknown) (no (unknown) (unknown) gabapentin 600 mg (units (unknown) date) tablet unknown) (unknown) (no (unknown) (unknown) household (units (unkn own) date) members: spouse unknown) (unknown) (no (unknown) (unknown) lidocaine 5 % (units ( unknown) date) Adhesive unknown) Patch,Medicated (unknown) (no (unknown) (unknown) lidocaine 5 % (units ( unknown) date) adhesive unknown) patch,medicated (unknown) (no (unknown) (unknown) lidocaine 5 % (units ( unknown) date) topical patch 1 ea unknown) topical DAILY #30 ea 09/23/22 (unknown) (no (unknown) (unknown) lidocaine 5 % (units (u nknown) date) topical patch 1 unknown) patch transdermal Q12H PRN Pain, 09/17/22 09/17/22 Result panel 93 (unknown) (no (unknown) (unknown) (no value) (units (unk nown) date) unknown) (unknown) (no (unknown) (unknown) 09/17/22 (units (unkno wn) date) unknown) (unknown) (no (unknown) (unknown) [id number] (units (unkno wn) date) unknown) (unknown) (no (unknown) (unknown) 12/17/22 16:41 (units (unknown) date) unknown) (unknown) (no (unknown) (unknown) 12/17/22 17:14 (units (unknown) date) unknown) (unknown) (no (unknown) (unknown) 12/17/22 (units (unkno wn) date) unknown) (unknown) (no (unknown) (unknown) 1 ea topical (units (u nknown) date) DAILY Qty: 30 0RF unknown) (unknown) (no (unknown) (unknown) 1 patch (units (unkno wn) date) transdermal Q12H unknown) PRN (Reason: Pain, Mild) (unknown) (no (unknown) (unknown) 1 puff INHALATION (units (unknown) date) PRN PRN (Reason: unknown) Wheezing) (unknown) (no (unknown) (unknown) 1 tab PO BID Qty: (units (unknown) date) 8 0RF unknown) (unknown) (no (unknown) (unknown) 100 mg PO BID (units ( unknown) date) Qty: 60 0RF unknown) (unknown) (no (unknown) (unknown) 14:41 12/17/22 (units (unknown) date) unknown) (unknown) (no (unknown) (unknown) 15:51 (units (unkno wn) date) unknown) (unknown) (no (unknown) (unknown) 2.5 mg PO BID (units ( unknown) date) unknown) (unknown) (no (unknown) (unknown) 25 mg PO BID Qty: (units (unknown) date) 0 unknown) (unknown) (no (unknown) (unknown) 40 mg PO DAILY (units (unknown) date) unknown) (unknown) (no (unknown) (unknown) 600 mg PO TID (units ( unknown) date) unknown) (unknown) (no (unknown) (unknown) 82-year-old male (units (unknown) date) with past medical unknown) history spinal cord injury, decubitus (unknown) (no (unknown) (unknown) Age/Sex: 82 / M (units (unknown) date) unknown) (unknown) (no (unknown) (unknown) Allergies (units (unkn own) date) unknown) (unknown) (no (unknown) (unknown) Allergy/AdvReac (units (unknown) date) Type Severity unknown) Reaction Status Date / Time (unknown) (no (unknown) (unknown) Blood Pressure (units (unknown) date) 12/17/22 unknown) 14:41 (unknown) (no (unknown) (unknown) Blood Pressure (units (unknown) date) unknown) (unknown) (no (unknown) (unknown) Chief complaint: (units (unknown) date) Extremity unknown) Problem,Nontraumat ic (unknown) (no (unknown) (unknown) Chronic (units (unkno wn) date) anticoagulation unknown) (unknown) (no (unknown) (unknown) Chronic (units (unkno wn) date) indwelling Schaeffer unknown) catheter (unknown) (no (unknown) (unknown) Congestive heart (units (unknown) date) failure unknown) (unknown) (no (unknown) (unknown) 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 (unknown) (no (unknown) (unknown) Coronary artery (units (unknown) date) disease unknown) (unknown) (no (unknown) (unknown) Course (units (unkno wn) date) unknown) (unknown) (no (unknown) (unknown) : 1940 (units (unknown) date) Acct:[id number] unknown) (unknown) (no (unknown) (unknown) Date of Service: (units (unknown) date) 12/17/22 unknown) (unknown) (no (unknown) (unknown) Departure (units (unkn own) date) unknown) (unknown) (no (unknown) (unknown) Discharge Plan (units (unknown) date) unknown) (unknown) (no (unknown) (unknown) ED Orders (units (unkn own) date) unknown) (unknown) (no (unknown) (unknown) ER Physician: (units ( unknown) date) Mathieu,Hyma P.A-C unknown) (unknown) (no (unknown) (unknown) Eliquis 2.5 mg (units (unknown) date) tablet unknown) (unknown) (no (unknown) (unknown) Emergency Report (units (unknown) date) unknown) (unknown) (no (unknown) (unknown) Exam (units (unkno wn) date) unknown) (unknown) (no (unknown) (unknown) Family History (units (unknown) date) (Reviewed 09/23/22 unknown) @ 11:22 by Izabella Serrano [facility]) (unknown) (no (unknown) (unknown) Father (units (unknown) date) Congestive heart unknown) failure (unknown) (no (unknown) (unknown) General (units (unkno wn) date) unknown) (unknown) (no (unknown) (unknown) HPI - Extremity (units (unknown) date) Problem unknown) (unknown) (no (unknown) (unknown) HPI Narrative: (units (unknown) date) unknown) (unknown) (no (unknown) (unknown) 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) (unknown) (no (unknown) (unknown) History of (units (unk nown) date) Present Illness unknown) (unknown) (no (unknown) (unknown) History of (units (unk nown) date) coronary artery unknown) stent placement (unknown) (no (unknown) (unknown) History of (units (unk nown) date) laminectomy unknown) (unknown) (no (unknown) (unknown) 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 (unknown) (no (unknown) (unknown) Home Medications (units (unknown) date) unknown) (unknown) (no (unknown) (unknown) Hyperlipidemia (units (unknown) date) unknown) (unknown) (no (unknown) (unknown) Hypertension (units (u nknown) date) unknown) (unknown) (no (unknown) (unknown) Initial Vital (units ( unknown) date) Signs unknown) (unknown) (no (unknown) (unknown) Initial Vital (units ( unknown) date) Signs: unknown) (unknown) (no (unknown) (unknown) Intermittent (units (u nknown) date) self-catheterizati unknown) on of bladder (unknown) (no (unknown) (unknown) [facility] (units (unknown) date) [address] unknown) [place] [id number] (unknown) (no (unknown) (unknown) Medical History (units (unknown) date) (Reviewed 09/23/22 unknown) @ 11:22 by Izabella Serrano [facility]) (unknown) (no (unknown) (unknown) Medication (units (unk nown) date) Instructions unknown) Recorded Confirmed (unknown) (no (unknown) (unknown) Medication (units (unk nown) date) Instructions unknown) Recorded (unknown) (no (unknown) (unknown) Mild (units (unkno wn) date) unknown) (unknown) (no (unknown) (unknown) Mode of arrival: (units (unknown) date) EMS unknown) (unknown) (no (unknown) (unknown) Mother (units (unknown) date) Cancer unknown) (unknown) (no (unknown) (unknown) No Action (units (unkn own) date) unknown) (unknown) (no (unknown) (unknown) No Known Drug (units ( unknown) date) Allergies Allergy unknown) Verified 09/16/22 17:38 (unknown) (no (unknown) (unknown) Ordered: (units (unkno wn) date) unknown) (unknown) (no (unknown) (unknown) Orders (units (unkno wn) date) unknown) (unknown) (no (unknown) (unknown) Oxygen Delivery (units (unknown) date) Method Room Air unknown) 12/17/22 14:41 (unknown) (no (unknown) (unknown) Oxygen Delivery (units (unknown) date) Method Room Air unknown) (unknown) (no (unknown) (unknown) Pacemaker (units (unkn own) date) unknown) (unknown) (no (unknown) (unknown) 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) (unknown) (no (unknown) (unknown) Patient History (units (unknown) date) unknown) (unknown) (no (unknown) (unknown) Patient: (units (unkno wn) date) Armani Cheema L unknown) MR#: [id number] (unknown) (no (unknown) (unknown) Prescriptions: (units (unknown) date) unknown) (unknown) (no (unknown) (unknown) Previous Rx's (units ( unknown) date) unknown) (unknown) (no (unknown) (unknown) Pulse Oximetry 93 (units (unknown) date) 12/17/22 14:41 unknown) (unknown) (no (unknown) (unknown) Pulse Oximetry 93 (units (unknown) date) unknown) (unknown) (no (unknown) (unknown) Pulse Rate 74 (units ( unknown) date) 12/17/22 14:41 unknown) (unknown) (no (unknown) (unknown) Pulse Rate 74 (units ( unknown) date) unknown) (unknown) (no (unknown) (unknown) Pulse Rate [Right (units (unknown) date) Dorsalis Pedis] 63 unknown) (unknown) (no (unknown) (unknown) Referrals: (units (unk nown) date) unknown) (unknown) (no (unknown) (unknown) Related Data (units (u nknown) date) unknown) (unknown) (no (unknown) (unknown) Respiratory Rate (units (unknown) date) 22 12/17/22 14:41 unknown) (unknown) (no (unknown) (unknown) Respiratory Rate (units (unknown) date) 22 unknown) (unknown) (no (unknown) (unknown) Vanessa Krishnamurthy DO (units (unknown) date) [Primary Care unknown) Provider] (unknown) (no (unknown) (unknown) Signed By: (units (unk nown) date) unknown) (unknown) (no (unknown) (unknown) Smoking Status: (units (unknown) date) Never smoker unknown) (unknown) (no (unknown) (unknown) Social History (units (unknown) date) (Reviewed 09/23/22 unknown) @ 11:22 by INA Montemayor) (unknown) (no (unknown) (unknown) Source: patient (units (unknown) date) and EMS unknown) (unknown) (no (unknown) (unknown) 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, incomplete unknown) (unknown) (no (unknown) (unknown) Stated complaint: (units (unknown) date) Rt Leg Swelling unknown) (unknown) (no (unknown) (unknown) Substance Use (units ( unknown) date) Type: does not use unknown) (unknown) (no (unknown) (unknown) Surgical History (units (unknown) date) (Reviewed 09/23/22 unknown) @ 11:22 by INA Montemayor) (unknown) (no (unknown) (unknown) Temperature 98.1 (units (unknown) date) F 12/17/22 14:41 unknown) (unknown) (no (unknown) (unknown) Temperature 98.1 (units (unknown) date) F unknown) (unknown) (no (unknown) (unknown) Time Seen by (units (u nknown) date) Provider: 12/17/22 unknown) 14:35 (unknown) (no (unknown) (unknown) US periph venous (units (unknown) date) low extrem bi Stat unknown) (unknown) (no (unknown) (unknown) Vital Signs - 8 (units (unknown) date) hr unknown) (unknown) (no (unknown) (unknown) Vital Signs (units (un known) date) unknown) (unknown) (no (unknown) (unknown) Vital signs: (units (u nknown) date) unknown) (unknown) (no (unknown) (unknown) aerosol inhaler (units (unknown) date) (ProAir HFA) unknown) (unknown) (no (unknown) (unknown) albuterol sulfate (units (unknown) date) 90 mcg/actuation 1 unknown) puff inhalation PRN PRN Wheezing 09/17/22 (unknown) (no (unknown) (unknown) albuterol sulfate (units (unknown) date) [ProAir HFA] 90 unknown) mcg/actuation HFA aerosol inhaler (unknown) (no (unknown) (unknown) amoxicillin 875 (units (unknown) date) mg-potassium 1 tab unknown) PO BID #8 tabs 09/23/22 (unknown) (no (unknown) (unknown) amoxicillin-pot (units (unknown) date) clavulanate unknown) 875-125 mg Tablet (unknown) (no (unknown) (unknown) apixaban 2.5 mg (units (unknown) date) tablet (Eliquis) unknown) 2.5 mg PO BID 09/17/22 09/17/22 (unknown) (no (unknown) (unknown) atorvastatin 40 (units (unknown) date) mg tablet 40 mg PO unknown) DAILY 09/17/22 09/17/22 (unknown) (no (unknown) (unknown) atorvastatin 40 (units (unknown) date) mg tablet unknown) (unknown) (no (unknown) (unknown) carvedilol 25 mg (units (unknown) date) tablet (Coreg) 25 unknown) mg PO BID ##0 04/14/12 09/17/22 (unknown) (no (unknown) (unknown) carvedilol (units (unk nown) date) [Coreg] 25 MG unknown) tablet (unknown) (no (unknown) (unknown) clavulanate 125 (units (unknown) date) mg tablet unknown) (unknown) (no (unknown) (unknown) docusate sodium (units (unknown) date) 100 mg Capsule unknown) (unknown) (no (unknown) (unknown) docusate sodium (units (unknown) date) 100 mg capsule 100 unknown) mg PO BID #60 caps 09/23/22 (unknown) (no (unknown) (unknown) gabapentin 600 mg (units (unknown) date) tablet 600 mg PO unknown) TID 09/17/22 09/17/22 (unknown) (no (unknown) (unknown) gabapentin 600 mg (units (unknown) date) tablet unknown) (unknown) (no (unknown) (unknown) household (units (unkn own) date) members: spouse unknown) (unknown) (no (unknown) (unknown) lidocaine 5 % (units ( unknown) date) Adhesive unknown) Patch,Medicated (unknown) (no (unknown) (unknown) lidocaine 5 % (units ( unknown) date) adhesive unknown) patch,medicated (unknown) (no (unknown) (unknown) lidocaine 5 % (units ( unknown) date) topical patch 1 ea unknown) topical DAILY #30 ea 09/23/22 (unknown) (no (unknown) (unknown) lidocaine 5 % (units (u nknown) date) topical patch 1 unknown) patch transdermal Q12H PRN Pain, 09/17/22 09/17/22 Result panel 94 (unknown) (no (unknown) (unknown) (no value) (units (unk nown) date) unknown) (unknown) (no (unknown) (unknown) 09/17/22 (units (unkno wn) date) unknown) (unknown) (no (unknown) (unknown) [id number] (units (unkno wn) date) unknown) (unknown) (no (unknown) (unknown) 12/17/22 16:41 (units (unknown) date) unknown) (unknown) (no (unknown) (unknown) 12/17/22 17:14 (units (unknown) date) unknown) (unknown) (no (unknown) (unknown) 12/17/22 (units (unkno wn) date) unknown) (unknown) (no (unknown) (unknown) 1 ea topical (units (u nknown) date) DAILY Qty: 30 0RF unknown) (unknown) (no (unknown) (unknown) 1 patch (units (unkno wn) date) transdermal Q12H unknown) PRN (Reason: Pain, Mild) (unknown) (no (unknown) (unknown) 1 puff INHALATION (units (unknown) date) PRN PRN (Reason: unknown) Wheezing) (unknown) (no (unknown) (unknown) 1 tab PO BID Qty: (units (unknown) date) 8 0RF unknown) (unknown) (no (unknown) (unknown) 100 mg PO BID (units ( unknown) date) Qty: 60 0RF unknown) (unknown) (no (unknown) (unknown) 14:41 12/17/22 (units (unknown) date) unknown) (unknown) (no (unknown) (unknown) 15:51 (units (unkno wn) date) unknown) (unknown) (no (unknown) (unknown) 2.5 mg PO BID (units ( unknown) date) unknown) (unknown) (no (unknown) (unknown) 25 mg PO BID Qty: (units (unknown) date) 0 unknown) (unknown) (no (unknown) (unknown) 40 mg PO DAILY (units (unknown) date) unknown) (unknown) (no (unknown) (unknown) 600 mg PO TID (units ( unknown) date) unknown) (unknown) (no (unknown) (unknown) 82-year-old male (units (unknown) date) with past medical unknown) history spinal cord injury, decubitus (unknown) (no (unknown) (unknown) Age/Sex: 82 / M (units (unknown) date) unknown) (unknown) (no (unknown) (unknown) Allergies (units (unkn own) date) unknown) (unknown) (no (unknown) (unknown) Allergy/AdvReac (units (unknown) date) Type Severity unknown) Reaction Status Date / Time (unknown) (no (unknown) (unknown) Blood Pressure (units (unknown) date) 131/73 12/17/22 unknown) 14:41 (unknown) (no (unknown) (unknown) Blood Pressure (units (unknown) date) 131/73 unknown) (unknown) (no (unknown) (unknown) Chief complaint: (units (unknown) date) Extremity unknown) Problem,Nontraumat ic (unknown) (no (unknown) (unknown) Chronic (units (unkno wn) date) anticoagulation unknown) (unknown) (no (unknown) (unknown) Chronic (units (unkno wn) date) indwelling Schaeffer unknown) catheter (unknown) (no (unknown) (unknown) Congestive heart (units (unknown) date) failure unknown) (unknown) (no (unknown) (unknown) 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 (unknown) (no (unknown) (unknown) Coronary artery (units (unknown) date) disease unknown) (unknown) (no (unknown) (unknown) Course (units (unkno wn) date) unknown) (unknown) (no (unknown) (unknown) : 1940 (units (unknown) date) Acct:[id number] unknown) (unknown) (no (unknown) (unknown) Date of Service: (units (unknown) date) 12/17/22 unknown) (unknown) (no (unknown) (unknown) Departure (units (unkn own) date) unknown) (unknown) (no (unknown) (unknown) Discharge Plan (units (unknown) date) unknown) (unknown) (no (unknown) (unknown) ED Orders (units (unkn own) date) unknown) (unknown) (no (unknown) (unknown) ER Physician: (units ( unknown) date) Mathieu,Jaspera P.A-C unknown) (unknown) (no (unknown) (unknown) Eliquis 2.5 mg (units (unknown) date) tablet unknown) (unknown) (no (unknown) (unknown) Emergency Report (units (unknown) date) unknown) (unknown) (no (unknown) (unknown) Exam (units (unkno wn) date) unknown) (unknown) (no (unknown) (unknown) Family History (units (unknown) date) (Reviewed 09/23/22 unknown) @ 11:22 by INA Montemayor) (unknown) (no (unknown) (unknown) Father (units (unknown) date) Congestive heart unknown) failure (unknown) (no (unknown) (unknown) General (units (unkno wn) date) unknown) (unknown) (no (unknown) (unknown) HPI - Extremity (units (unknown) date) Problem unknown) (unknown) (no (unknown) (unknown) HPI Narrative: (units (unknown) date) unknown) (unknown) (no (unknown) (unknown) 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) (unknown) (no (unknown) (unknown) History of (units (unk nown) date) Present Illness unknown) (unknown) (no (unknown) (unknown) History of (units (unk nown) date) coronary artery unknown) stent placement (unknown) (no (unknown) (unknown) History of (units (unk nown) date) laminectomy unknown) (unknown) (no (unknown) (unknown) 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 (unknown) (no (unknown) (unknown) Home Medications (units (unknown) date) unknown) (unknown) (no (unknown) (unknown) Hyperlipidemia (units (unknown) date) unknown) (unknown) (no (unknown) (unknown) Hypertension (units (u nknown) date) unknown) (unknown) (no (unknown) (unknown) Initial Vital (units ( unknown) date) Signs unknown) (unknown) (no (unknown) (unknown) Initial Vital (units ( unknown) date) Signs: unknown) (unknown) (no (unknown) (unknown) Intermittent (units (u nknown) date) self-catheterizati unknown) on of bladder (unknown) (no (unknown) (unknown) [facility] (units (unknown) date) [address] unknown) [place] [id number] (unknown) (no (unknown) (unknown) Medical History (units (unknown) date) (Reviewed 09/23/22 unknown) @ 11:22 by INA Montemayor) (unknown) (no (unknown) (unknown) Medication (units (unk nown) date) Instructions unknown) Recorded Confirmed (unknown) (no (unknown) (unknown) Medication (units (unk nown) date) Instructions unknown) Recorded (unknown) (no (unknown) (unknown) Mild (units (unkno wn) date) unknown) (unknown) (no (unknown) (unknown) Mode of arrival: (units (unknown) date) EMS unknown) (unknown) (no (unknown) (unknown) Mother (units (unknown) date) Cancer unknown) (unknown) (no (unknown) (unknown) No Action (units (unkn own) date) unknown) (unknown) (no (unknown) (unknown) No Known Drug (units ( unknown) date) Allergies Allergy unknown) Verified 09/16/22 17:38 (unknown) (no (unknown) (unknown) Ordered: (units (unkno wn) date) unknown) (unknown) (no (unknown) (unknown) Orders (units (unkno wn) date) unknown) (unknown) (no (unknown) (unknown) Oxygen Delivery (units (unknown) date) Method Room Air unknown) 12/17/22 14:41 (unknown) (no (unknown) (unknown) Oxygen Delivery (units (unknown) date) Method Room Air unknown) (unknown) (no (unknown) (unknown) Pacemaker (units (unkn own) date) unknown) (unknown) (no (unknown) (unknown) 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) (unknown) (no (unknown) (unknown) Patient History (units (unknown) date) unknown) (unknown) (no (unknown) (unknown) Patient: (units (unkno wn) date) Armani Cheema L unknown) MR#: [id number] (unknown) (no (unknown) (unknown) Prescriptions: (units (unknown) date) unknown) (unknown) (no (unknown) (unknown) Previous Rx's (units ( unknown) date) unknown) (unknown) (no (unknown) (unknown) Pulse Oximetry 93 (units (unknown) date) 12/17/22 14:41 unknown) (unknown) (no (unknown) (unknown) Pulse Oximetry 93 (units (unknown) date) unknown) (unknown) (no (unknown) (unknown) Pulse Rate 74 (units ( unknown) date) 12/17/22 14:41 unknown) (unknown) (no (unknown) (unknown) Pulse Rate 74 (units ( unknown) date) unknown) (unknown) (no (unknown) (unknown) Pulse Rate [Right (units (unknown) date) Dorsalis Pedis] 63 unknown) (unknown) (no (unknown) (unknown) Referrals: (units (unk nown) date) unknown) (unknown) (no (unknown) (unknown) Related Data (units (u nknown) date) unknown) (unknown) (no (unknown) (unknown) Respiratory Rate (units (unknown) date) 22 12/17/22 14:41 unknown) (unknown) (no (unknown) (unknown) Respiratory Rate (units (unknown) date) 22 unknown) (unknown) (no (unknown) (unknown) Vanessa Krishnamurthy DO (units (unknown) date) [Primary Care unknown) Provider] (unknown) (no (unknown) (unknown) Signed By: (units (unk nown) date) unknown) (unknown) (no (unknown) (unknown) Smoking Status: (units (unknown) date) Never smoker unknown) (unknown) (no (unknown) (unknown) Social History (units (unknown) date) (Reviewed 09/23/22 unknown) @ 11:22 by INA Montemayor) (unknown) (no (unknown) (unknown) Source: patient (units (unknown) date) and EMS unknown) (unknown) (no (unknown) (unknown) 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, incomplete unknown) (unknown) (no (unknown) (unknown) Stated complaint: (units (unknown) date) Rt Leg Swelling unknown) (unknown) (no (unknown) (unknown) Substance Use (units ( unknown) date) Type: does not use unknown) (unknown) (no (unknown) (unknown) Surgical History (units (unknown) date) (Reviewed 09/23/22 unknown) @ 11:22 by INA Montemayor) (unknown) (no (unknown) (unknown) Temperature 98.1 (units (unknown) date) F 12/17/22 14:41 unknown) (unknown) (no (unknown) (unknown) Temperature 98.1 (units (unknown) date) F unknown) (unknown) (no (unknown) (unknown) Time Seen by (units (u nknown) date) Provider: 12/17/22 unknown) 14:35 (unknown) (no (unknown) (unknown) US periph venous (units (unknown) date) low extrem bi Stat unknown) (unknown) (no (unknown) (unknown) Vital Signs - 8 (units (unknown) date) hr unknown) (unknown) (no (unknown) (unknown) Vital Signs (units (un known) date) unknown) (unknown) (no (unknown) (unknown) Vital signs: (units (u nknown) date) unknown) (unknown) (no (unknown) (unknown) aerosol inhaler (units (unknown) date) (ProAir HFA) unknown) (unknown) (no (unknown) (unknown) albuterol sulfate (units (unknown) date) 90 mcg/actuation 1 unknown) puff inhalation PRN PRN Wheezing 09/17/22 (unknown) (no (unknown) (unknown) albuterol sulfate (units (unknown) date) [ProAir HFA] 90 unknown) mcg/actuation HFA aerosol inhaler (unknown) (no (unknown) (unknown) amoxicillin 875 (units (unknown) date) mg-potassium 1 tab unknown) PO BID #8 tabs 09/23/22 (unknown) (no (unknown) (unknown) amoxicillin-pot (units (unknown) date) clavulanate unknown) 875-125 mg Tablet (unknown) (no (unknown) (unknown) apixaban 2.5 mg (units (unknown) date) tablet (Eliquis) unknown) 2.5 mg PO BID 09/17/22 09/17/22 (unknown) (no (unknown) (unknown) atorvastatin 40 (units (unknown) date) mg tablet 40 mg PO unknown) DAILY 09/17/22 09/17/22 (unknown) (no (unknown) (unknown) atorvastatin 40 (units (unknown) date) mg tablet unknown) (unknown) (no (unknown) (unknown) carvedilol 25 mg (units (unknown) date) tablet (Coreg) 25 unknown) mg PO BID ##0 04/14/12 09/17/22 (unknown) (no (unknown) (unknown) carvedilol (units (unk nown) date) [Coreg] 25 MG unknown) tablet (unknown) (no (unknown) (unknown) clavulanate 125 (units (unknown) date) mg tablet unknown) (unknown) (no (unknown) (unknown) docusate sodium (units (unknown) date) 100 mg Capsule unknown) (unknown) (no (unknown) (unknown) docusate sodium (units (unknown) date) 100 mg capsule 100 unknown) mg PO BID #60 caps 09/23/22 (unknown) (no (unknown) (unknown) gabapentin 600 mg (units (unknown) date) tablet 600 mg PO unknown) TID 09/17/22 09/17/22 (unknown) (no (unknown) (unknown) gabapentin 600 mg (units (unknown) date) tablet unknown) (unknown) (no (unknown) (unknown) household (units (unkn own) date) members: spouse unknown) (unknown) (no (unknown) (unknown) lidocaine 5 % (units ( unknown) date) Adhesive unknown) Patch,Medicated (unknown) (no (unknown) (unknown) lidocaine 5 % (units ( unknown) date) adhesive unknown) patch,medicated (unknown) (no (unknown) (unknown) lidocaine 5 % (units ( unknown) date) topical patch 1 ea unknown) topical DAILY #30 ea 09/23/22 (unknown) (no (unknown) (unknown) lidocaine 5 % (units (u nknown) date) topical patch 1 unknown) patch transdermal Q12H PRN Pain, 09/17/22 09/17/22 Result panel 95 (unknown) (no (unknown) (unknown) (no value) (units (unk nown) date) unknown) (unknown) (no (unknown) (unknown) 09/17/22 (units (unkno wn) date) unknown) (unknown) (no (unknown) (unknown) [id number] (units (unkno wn) date) unknown) (unknown) (no (unknown) (unknown) 12/17/22 16:41 (units (unknown) date) unknown) (unknown) (no (unknown) (unknown) 12/17/22 17:14 (units (unknown) date) unknown) (unknown) (no (unknown) (unknown) 12/17/22 (units (unkno wn) date) unknown) (unknown) (no (unknown) (unknown) 1 ea topical (units (u nknown) date) DAILY Qty: 30 0RF unknown) (unknown) (no (unknown) (unknown) 1 patch (units (unkno wn) date) transdermal Q12H unknown) PRN (Reason: Pain, Mild) (unknown) (no (unknown) (unknown) 1 puff INHALATION (units (unknown) date) PRN PRN (Reason: unknown) Wheezing) (unknown) (no (unknown) (unknown) 1 tab PO BID Qty: (units (unknown) date) 8 0RF unknown) (unknown) (no (unknown) (unknown) 100 mg PO BID (units ( unknown) date) Qty: 60 0RF unknown) (unknown) (no (unknown) (unknown) 14:41 12/17/22 (units (unknown) date) unknown) (unknown) (no (unknown) (unknown) 15:51 (units (unkno wn) date) unknown) (unknown) (no (unknown) (unknown) 2.5 mg PO BID (units ( unknown) date) unknown) (unknown) (no (unknown) (unknown) 25 mg PO BID Qty: (units (unknown) date) 0 unknown) (unknown) (no (unknown) (unknown) 40 mg PO DAILY (units (unknown) date) unknown) (unknown) (no (unknown) (unknown) 600 mg PO TID (units ( unknown) date) unknown) (unknown) (no (unknown) (unknown) 82-year-old male (units (unknown) date) with past medical unknown) history spinal cord injury, decubitus ulcer (unknown) (no (unknown) (unknown) Age/Sex: 82 / M (units (unknown) date) unknown) (unknown) (no (unknown) (unknown) Allergies (units (unkn own) date) unknown) (unknown) (no (unknown) (unknown) Allergy/AdvReac (units (unknown) date) Type Severity unknown) Reaction Status Date / Time (unknown) (no (unknown) (unknown) Blood Pressure (units (unknown) date) 131/73 12/17/22 unknown) 14:41 (unknown) (no (unknown) (unknown) Blood Pressure (units (unknown) date) 131/73 unknown) (unknown) (no (unknown) (unknown) Chief complaint: (units (unknown) date) Extremity unknown) Problem,Nontraumat ic (unknown) (no (unknown) (unknown) Chronic (units (unkno wn) date) anticoagulation unknown) (unknown) (no (unknown) (unknown) Chronic (units (unkno wn) date) indwelling Schaeffer unknown) catheter (unknown) (no (unknown) (unknown) Congestive heart (units (unknown) date) failure unknown) (unknown) (no (unknown) (unknown) 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 (unknown) (no (unknown) (unknown) Coronary artery (units (unknown) date) disease unknown) (unknown) (no (unknown) (unknown) Course (units (unkno wn) date) unknown) (unknown) (no (unknown) (unknown) : 1940 (units (unknown) date) Acct:[id number] unknown) (unknown) (no (unknown) (unknown) Date of Service: (units (unknown) date) 12/17/22 unknown) (unknown) (no (unknown) (unknown) Departure (units (unkn own) date) unknown) (unknown) (no (unknown) (unknown) Discharge Plan (units (unknown) date) unknown) (unknown) (no (unknown) (unknown) ED Orders (units (unkn own) date) unknown) (unknown) (no (unknown) (unknown) ER Physician: (units ( unknown) date) Deondre MurdockA-Darell unknown) (unknown) (no (unknown) (unknown) Eliquis 2.5 mg (units (unknown) date) tablet unknown) (unknown) (no (unknown) (unknown) Emergency Report (units (unknown) date) unknown) (unknown) (no (unknown) (unknown) Exam (units (unkno wn) date) unknown) (unknown) (no (unknown) (unknown) Family History (units (unknown) date) (Reviewed 09/23/22 unknown) @ 11:22 by INA Montemayor) (unknown) (no (unknown) (unknown) Father (units (unknown) date) Congestive heart unknown) failure (unknown) (no (unknown) (unknown) General (units (unkno wn) date) unknown) (unknown) (no (unknown) (unknown) HPI - Extremity (units (unknown) date) Problem unknown) (unknown) (no (unknown) (unknown) HPI Narrative: (units (unknown) date) unknown) (unknown) (no (unknown) (unknown) 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) (unknown) (no (unknown) (unknown) History of (units (unk nown) date) Present Illness unknown) (unknown) (no (unknown) (unknown) History of (units (unk nown) date) coronary artery unknown) stent placement (unknown) (no (unknown) (unknown) History of (units (unk nown) date) laminectomy unknown) (unknown) (no (unknown) (unknown) 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 (unknown) (no (unknown) (unknown) Home Medications (units (unknown) date) unknown) (unknown) (no (unknown) (unknown) Hyperlipidemia (units (unknown) date) unknown) (unknown) (no (unknown) (unknown) Hypertension (units (u nknown) date) unknown) (unknown) (no (unknown) (unknown) Initial Vital (units ( unknown) date) Signs unknown) (unknown) (no (unknown) (unknown) Initial Vital (units ( unknown) date) Signs: unknown) (unknown) (no (unknown) (unknown) Intermittent (units (u nknown) date) self-catheterizati unknown) on of bladder (unknown) (no (unknown) (unknown) [facility] (units (unknown) date) [address] unknown) [place] [address] (unknown) (no (unknown) (unknown) MDM - Extremity (units (unknown) date) (Nontraumatic) unknown) (unknown) (no (unknown) (unknown) MDM Narrative (units ( unknown) date) unknown) (unknown) (no (unknown) (unknown) Medical History (units (unknown) date) (Reviewed 09/23/22 unknown) @ 11:22 by INA Montemayor) (unknown) (no (unknown) (unknown) Medical decision (units (unknown) date) making narrative: unknown) (unknown) (no (unknown) (unknown) Medication (units (unk nown) date) Instructions unknown) Recorded Confirmed (unknown) (no (unknown) (unknown) Medication (units (unk nown) date) Instructions unknown) Recorded (unknown) (no (unknown) (unknown) Mild (units (unkno wn) date) unknown) (unknown) (no (unknown) (unknown) Mode of arrival: (units (unknown) date) EMS unknown) (unknown) (no (unknown) (unknown) Mother (units (unknown) date) Cancer unknown) (unknown) (no (unknown) (unknown) No Action (units (unkn own) date) unknown) (unknown) (no (unknown) (unknown) No Known Drug (units ( unknown) date) Allergies Allergy unknown) Verified 09/16/22 17:38 (unknown) (no (unknown) (unknown) Ordered: (units (unkno wn) date) unknown) (unknown) (no (unknown) (unknown) Orders (units (unkno wn) date) unknown) (unknown) (no (unknown) (unknown) Oxygen Delivery (units (unknown) date) Method Room Air unknown) 12/17/22 14:41 (unknown) (no (unknown) (unknown) Oxygen Delivery (units (unknown) date) Method Room Air unknown) (unknown) (no (unknown) (unknown) Pacemaker (units (unkn own) date) unknown) (unknown) (no (unknown) (unknown) 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) (unknown) (no (unknown) (unknown) Patient History (units (unknown) date) unknown) (unknown) (no (unknown) (unknown) Patient denies (units (unknown) date) fever, chills, unknown) chest pain, shortness of breath, nausea, (unknown) (no (unknown) (unknown) Patient's home (units (unknown) date) health aide was unknown) also concerned about patient's leg swelling, (unknown) (no (unknown) (unknown) Patient: (units (unkno wn) date) [employer] Cheema L unknown) MR#: [id number] (unknown) (no (unknown) (unknown) Prescriptions: (units (unknown) date) unknown) (unknown) (no (unknown) (unknown) Previous Rx's (units ( unknown) date) unknown) (unknown) (no (unknown) (unknown) Pulse Oximetry 93 (units (unknown) date) 12/17/22 14:41 unknown) (unknown) (no (unknown) (unknown) Pulse Oximetry 93 (units (unknown) date) unknown) (unknown) (no (unknown) (unknown) Pulse Rate 74 (units ( unknown) date) 12/17/22 14:41 unknown) (unknown) (no (unknown) (unknown) Pulse Rate 74 (units ( unknown) date) unknown) (unknown) (no (unknown) (unknown) Pulse Rate [Right (units (unknown) date) Dorsalis Pedis] 63 unknown) (unknown) (no (unknown) (unknown) Referrals: (units (unk nown) date) unknown) (unknown) (no (unknown) (unknown) Related Data (units (u nknown) date) unknown) (unknown) (no (unknown) (unknown) Respiratory Rate (units (unknown) date) 22 12/17/22 14:41 unknown) (unknown) (no (unknown) (unknown) Respiratory Rate (units (unknown) date) 22 unknown) (unknown) (no (unknown) (unknown) Vanessa Krishnamurthy DO (units (unknown) date) [Primary Care unknown) Provider] (unknown) (no (unknown) (unknown) Signed By: (units (unk nown) date) unknown) (unknown) (no (unknown) (unknown) Smoking Status: (units (unknown) date) Never smoker unknown) (unknown) (no (unknown) (unknown) Social History (units (unknown) date) (Reviewed 09/23/22 unknown) @ 11:22 by INA Montemayor) (unknown) (no (unknown) (unknown) Source: patient (units (unknown) date) and EMS unknown) (unknown) (no (unknown) (unknown) 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, incomplete unknown) (unknown) (no (unknown) (unknown) Stated complaint: (units (unknown) date) Rt Leg Swelling unknown) (unknown) (no (unknown) (unknown) Substance Use (units ( unknown) date) Type: does not use unknown) (unknown) (no (unknown) (unknown) Surgical History (units (unknown) date) (Reviewed 09/23/22 unknown) @ 11:22 by INA Montemayor) (unknown) (no (unknown) (unknown) Temperature 98.1 (units (unknown) date) F 12/17/22 14:41 unknown) (unknown) (no (unknown) (unknown) Temperature 98.1 (units (unknown) date) F unknown) (unknown) (no (unknown) (unknown) Time Seen by (units (u nknown) date) Provider: 12/17/22 unknown) 14:35 (unknown) (no (unknown) (unknown) US periph venous (units (unknown) date) low extrem bi Stat unknown) (unknown) (no (unknown) (unknown) Vital Signs - 8 (units (unknown) date) hr unknown) (unknown) (no (unknown) (unknown) Vital Signs (units (un known) date) unknown) (unknown) (no (unknown) (unknown) Vital signs: (units (u nknown) date) unknown) (unknown) (no (unknown) (unknown) aerosol inhaler (units (unknown) date) (ProAir HFA) unknown) (unknown) (no (unknown) (unknown) albuterol sulfate (units (unknown) date) 90 mcg/actuation 1 unknown) puff inhalation PRN PRN Wheezing 09/17/22 (unknown) (no (unknown) (unknown) albuterol sulfate (units (unknown) date) [ProAir HFA] 90 unknown) mcg/actuation HFA aerosol inhaler (unknown) (no (unknown) (unknown) amoxicillin 875 (units (unknown) date) mg-potassium 1 tab unknown) PO BID #8 tabs 09/23/22 (unknown) (no (unknown) (unknown) amoxicillin-pot (units (unknown) date) clavulanate unknown) 875-125 mg Tablet (unknown) (no (unknown) (unknown) and safety. 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, (unknown) (no (unknown) (unknown) apixaban 2.5 mg (units (unknown) date) tablet (Eliquis) unknown) 2.5 mg PO BID 09/17/22 09/17/22 (unknown) (no (unknown) (unknown) atorvastatin 40 (units (unknown) date) mg tablet 40 mg PO unknown) DAILY 09/17/22 09/17/22 (unknown) (no (unknown) (unknown) atorvastatin 40 (units (unknown) date) mg tablet unknown) (unknown) (no (unknown) (unknown) carvedilol 25 mg (units (unknown) date) tablet (Coreg) 25 unknown) mg PO BID ##0 04/14/12 09/17/22 (unknown) (no (unknown) (unknown) carvedilol (units (unk nown) date) [Coreg] 25 MG unknown) tablet (unknown) (no (unknown) (unknown) clavulanate 125 (units (unknown) date) mg tablet unknown) (unknown) (no (unknown) (unknown) collapse down to (units (unknown) date) the floor. Patient unknown) did not hit his head. Patient denies any (unknown) (no (unknown) (unknown) docusate sodium (units (unknown) date) 100 mg Capsule unknown) (unknown) (no (unknown) (unknown) docusate sodium (units (unknown) date) 100 mg capsule 100 unknown) mg PO BID #60 caps 09/23/22 (unknown) (no (unknown) (unknown) doing that at (units ( unknown) date) [facility] daily. unknown) Yesterday, patient states that he overload that (unknown) (no (unknown) (unknown) feels comfortable (units (unknown) date) navigating this. unknown) Patient states he has no new symptoms today. (unknown) (no (unknown) (unknown) gabapentin 600 mg (units (unknown) date) tablet 600 mg PO unknown) TID 09/17/22 09/17/22 (unknown) (no (unknown) (unknown) gabapentin 600 mg (units (unknown) date) tablet unknown) (unknown) (no (unknown) (unknown) him to the ED (units ( unknown) date) today for further unknown) evaluation due to concerns of lack of mobility (unknown) (no (unknown) (unknown) his wheelchair (units (unknown) date) breaks had not unknown) been applied, he tried to transfer into the (unknown) (no (unknown) (unknown) hospitalized in (units (unknown) date) September 2022 for unknown) the decubitus ulcer, was discharged to [facility] (unknown) (no (unknown) (unknown) household (units (unkn own) date) members: spouse unknown) (unknown) (no (unknown) (unknown) however patient (units (unknown) date) states that his unknown) baseline is that his right leg is more swollen (unknown) (no (unknown) (unknown) hyperlipidemia, (units (unknown) date) CAD, history of unknown) right leg DVT sent to the ED by his home health (unknown) (no (unknown) (unknown) injuries from (units ( unknown) date) that incident. unknown) Patient lives in a multilevel home, has chair (unknown) (no (unknown) (unknown) lidocaine 5 % (units ( unknown) date) Adhesive unknown) Patch,Medicated (unknown) (no (unknown) (unknown) lidocaine 5 % (units ( unknown) date) adhesive unknown) patch,medicated (unknown) (no (unknown) (unknown) lidocaine 5 % (units ( unknown) date) topical patch 1 ea unknown) topical DAILY #30 ea 09/23/22 (unknown) (no (unknown) (unknown) lidocaine 5 % (units (u nknown) date) topical patch 1 unknown) patch transdermal Q12H PRN Pain, 09/17/22 09/17/22 (unknown) (no (unknown) (unknown) lives that takes (units (unknown) date) him from the unknown) garage to the main level, and another chair lift (unknown) (no (unknown) (unknown) nurse due to (units (u nknown) date) concerns of lack unknown) of patient mobility and safety. 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 (unknown) (no (unknown) (unknown) of the sacral (units ( unknown) date) region, CHF, [place] unknown) stent x2, pacer on chronic Eliquis, hypertension, (unknown) (no (unknown) (unknown) out of SNF funds. (units (unknown) date) Patient was set up unknown) with a home health aide at home, who sent (unknown) (no (unknown) (unknown) says he can (units (un known) date) transfer from the unknown) bed to the wheelchair successfully and has been (unknown) (no (unknown) (unknown) than the left and (units (unknown) date) he has no new leg unknown) pain. (unknown) (no (unknown) (unknown) the take some (units ( unknown) date) from the main unknown) level up to the 2nd floor where his bed is. Patient (unknown) (no (unknown) (unknown) vomiting, (units (unkn own) date) abdominal pain, unknown) dysuria, lightheadedness, dizziness, syncope. (unknown) (no (unknown) (unknown) wheelchair, which (units (unknown) date) sent the unknown) wheelchair rolling away from him, causing him to (unknown) (no (unknown) (unknown) which is a SNF. (units (unknown) date) Patient was unknown) discharged from [facility] back home due to running Result panel 96 (unknown) (no (unknown) (unknown) (no value) (units (unk nown) date) unknown) (unknown) (no (unknown) (unknown) 09/17/22 (units (unkno wn) date) unknown) (unknown) (no (unknown) (unknown) [id number] (units (unkno wn) date) unknown) (unknown) (no (unknown) (unknown) 12/17/22 16:41 (units (unknown) date) unknown) (unknown) (no (unknown) (unknown) 12/17/22 17:14 (units (unknown) date) unknown) (unknown) (no (unknown) (unknown) 12/17/22 (units (unkno wn) date) unknown) (unknown) (no (unknown) (unknown) 1 ea topical (units (u nknown) date) DAILY Qty: 30 0RF unknown) (unknown) (no (unknown) (unknown) 1 patch (units (unkno wn) date) transdermal Q12H unknown) PRN (Reason: Pain, Mild) (unknown) (no (unknown) (unknown) 1 puff INHALATION (units (unknown) date) PRN PRN (Reason: unknown) Wheezing) (unknown) (no (unknown) (unknown) 1 tab PO BID Qty: (units (unknown) date) 8 0RF unknown) (unknown) (no (unknown) (unknown) 100 mg PO BID (units ( unknown) date) Qty: 60 0RF unknown) (unknown) (no (unknown) (unknown) 14:41 12/17/22 (units (unknown) date) unknown) (unknown) (no (unknown) (unknown) 15:51 (units (unkno wn) date) unknown) (unknown) (no (unknown) (unknown) 2.5 mg PO BID (units ( unknown) date) unknown) (unknown) (no (unknown) (unknown) 25 mg PO BID Qty: (units (unknown) date) 0 unknown) (unknown) (no (unknown) (unknown) 40 mg PO DAILY (units (unknown) date) unknown) (unknown) (no (unknown) (unknown) 600 mg PO TID (units ( unknown) date) unknown) (unknown) (no (unknown) (unknown) 82-year-old male (units (unknown) date) with past medical unknown) history spinal cord injury, decubitus ulcer (unknown) (no (unknown) (unknown) Age/Sex: 82 / M (units (unknown) date) unknown) (unknown) (no (unknown) (unknown) Allergies (units (unkn own) date) unknown) (unknown) (no (unknown) (unknown) Allergy/AdvReac (units (unknown) date) Type Severity unknown) Reaction Status Date / Time (unknown) (no (unknown) (unknown) Blood Pressure (units (unknown) date) 131/73 12/17/22 unknown) 14:41 (unknown) (no (unknown) (unknown) Blood Pressure (units (unknown) date) 131/73 unknown) (unknown) (no (unknown) (unknown) Chief complaint: (units (unknown) date) Extremity unknown) Problem,Nontraumat ic (unknown) (no (unknown) (unknown) Chronic (units (unkno wn) date) anticoagulation unknown) (unknown) (no (unknown) (unknown) Chronic (units (unkno wn) date) indwelling Schaeffer unknown) catheter (unknown) (no (unknown) (unknown) Congestive heart (units (unknown) date) failure unknown) (unknown) (no (unknown) (unknown) 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 (unknown) (no (unknown) (unknown) Coronary artery (units (unknown) date) disease unknown) (unknown) (no (unknown) (unknown) Course (units (unkno wn) date) unknown) (unknown) (no (unknown) (unknown) : 1940 (units (unknown) date) Acct:[id number] unknown) (unknown) (no (unknown) (unknown) Date of Service: (units (unknown) date) 12/17/22 unknown) (unknown) (no (unknown) (unknown) Departure (units (unkn own) date) unknown) (unknown) (no (unknown) (unknown) Discharge Plan (units (unknown) date) unknown) (unknown) (no (unknown) (unknown) ED Orders (units (unkn own) date) unknown) (unknown) (no (unknown) (unknown) ER Physician: (units ( unknown) date) Deondre MurdockA-Darell unknown) (unknown) (no (unknown) (unknown) Eliquis 2.5 mg (units (unknown) date) tablet unknown) (unknown) (no (unknown) (unknown) Emergency Report (units (unknown) date) unknown) (unknown) (no (unknown) (unknown) Exam (units (unkno wn) date) unknown) (unknown) (no (unknown) (unknown) Family History (units (unknown) date) (Reviewed 09/23/22 unknown) @ 11:22 by BRANDAN Montemayor) (unknown) (no (unknown) (unknown) Father (units (unknown) date) Congestive heart unknown) failure (unknown) (no (unknown) (unknown) General (units (unkno wn) date) unknown) (unknown) (no (unknown) (unknown) HPI - Extremity (units (unknown) date) Problem unknown) (unknown) (no (unknown) (unknown) HPI Narrative: (units (unknown) date) unknown) (unknown) (no (unknown) (unknown) 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) (unknown) (no (unknown) (unknown) History of (units (unk nown) date) Present Illness unknown) (unknown) (no (unknown) (unknown) History of (units (unk nown) date) coronary artery unknown) stent placement (unknown) (no (unknown) (unknown) History of (units (unk nown) date) laminectomy unknown) (unknown) (no (unknown) (unknown) 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 (unknown) (no (unknown) (unknown) Home Medications (units (unknown) date) unknown) (unknown) (no (unknown) (unknown) Hyperlipidemia (units (unknown) date) unknown) (unknown) (no (unknown) (unknown) Hypertension (units (u nknown) date) unknown) (unknown) (no (unknown) (unknown) Initial Vital (units ( unknown) date) Signs unknown) (unknown) (no (unknown) (unknown) Initial Vital (units ( unknown) date) Signs: unknown) (unknown) (no (unknown) (unknown) Intermittent (units (u nknown) date) self-catheterizati unknown) on of bladder (unknown) (no (unknown) (unknown) [facility] (units (unknown) date) [address] unknown) [place] [address] (unknown) (no (unknown) (unknown) MDM - Extremity (units (unknown) date) (Nontraumatic) unknown) (unknown) (no (unknown) (unknown) MDM Narrative (units ( unknown) date) unknown) (unknown) (no (unknown) (unknown) Medical History (units (unknown) date) (Reviewed 09/23/22 unknown) @ 11:22 by INA Montemayor) (unknown) (no (unknown) (unknown) Medical decision (units (unknown) date) making narrative: unknown) (unknown) (no (unknown) (unknown) Medication (units (unk nown) date) Instructions unknown) Recorded Confirmed (unknown) (no (unknown) (unknown) Medication (units (unk nown) date) Instructions unknown) Recorded (unknown) (no (unknown) (unknown) Mild (units (unkno wn) date) unknown) (unknown) (no (unknown) (unknown) Mode of arrival: (units (unknown) date) EMS unknown) (unknown) (no (unknown) (unknown) Mother (units (unknown) date) Cancer unknown) (unknown) (no (unknown) (unknown) No Action (units (unkn own) date) unknown) (unknown) (no (unknown) (unknown) No Known Drug (units ( unknown) date) Allergies Allergy unknown) Verified 09/16/22 17:38 (unknown) (no (unknown) (unknown) Ordered: (units (unkno wn) date) unknown) (unknown) (no (unknown) (unknown) Orders (units (unkno wn) date) unknown) (unknown) (no (unknown) (unknown) Oxygen Delivery (units (unknown) date) Method Room Air unknown) 12/17/22 14:41 (unknown) (no (unknown) (unknown) Oxygen Delivery (units (unknown) date) Method Room Air unknown) (unknown) (no (unknown) (unknown) Pacemaker (units (unkn own) date) unknown) (unknown) (no (unknown) (unknown) 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) (unknown) (no (unknown) (unknown) Patient History (units (unknown) date) unknown) (unknown) (no (unknown) (unknown) Patient denies (units (unknown) date) fever, chills, unknown) chest pain, shortness of breath, nausea, (unknown) (no (unknown) (unknown) Patient's home (units (unknown) date) health aide was unknown) also concerned about patient's leg swelling, (unknown) (no (unknown) (unknown) Patient: (units (unkno wn) date) [employer] L unknown) MR#: [id number] (unknown) (no (unknown) (unknown) Prescriptions: (units (unknown) date) unknown) (unknown) (no (unknown) (unknown) Previous Rx's (units ( unknown) date) unknown) (unknown) (no (unknown) (unknown) Pulse Oximetry 93 (units (unknown) date) 12/17/22 14:41 unknown) (unknown) (no (unknown) (unknown) Pulse Oximetry 93 (units (unknown) date) unknown) (unknown) (no (unknown) (unknown) Pulse Rate 74 (units ( unknown) date) 12/17/22 14:41 unknown) (unknown) (no (unknown) (unknown) Pulse Rate 74 (units ( unknown) date) unknown) (unknown) (no (unknown) (unknown) Pulse Rate [Right (units (unknown) date) Dorsalis Pedis] 63 unknown) (unknown) (no (unknown) (unknown) Referrals: (units (unk nown) date) unknown) (unknown) (no (unknown) (unknown) Related Data (units (u nknown) date) unknown) (unknown) (no (unknown) (unknown) Respiratory Rate (units (unknown) date) 22 12/17/22 14:41 unknown) (unknown) (no (unknown) (unknown) Respiratory Rate (units (unknown) date) 22 unknown) (unknown) (no (unknown) (unknown) Vanessa Krishnamurthy DO (units (unknown) date) [Primary Care unknown) Provider] (unknown) (no (unknown) (unknown) Signed By: (units (unk nown) date) unknown) (unknown) (no (unknown) (unknown) Smoking Status: (units (unknown) date) Never smoker unknown) (unknown) (no (unknown) (unknown) Social History (units (unknown) date) (Reviewed 09/23/22 unknown) @ 11:22 by INA Montemayor) (unknown) (no (unknown) (unknown) Source: patient (units (unknown) date) and EMS unknown) (unknown) (no (unknown) (unknown) 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, incomplete unknown) (unknown) (no (unknown) (unknown) Stated complaint: (units (unknown) date) Rt Leg Swelling unknown) (unknown) (no (unknown) (unknown) Substance Use (units ( unknown) date) Type: does not use unknown) (unknown) (no (unknown) (unknown) Surgical History (units (unknown) date) (Reviewed 09/23/22 unknown) @ 11:22 by INA Montemayor) (unknown) (no (unknown) (unknown) Temperature 98.1 (units (unknown) date) F 12/17/22 14:41 unknown) (unknown) (no (unknown) (unknown) Temperature 98.1 (units (unknown) date) F unknown) (unknown) (no (unknown) (unknown) Time Seen by (units (u nknown) date) Provider: 12/17/22 unknown) 14:35 (unknown) (no (unknown) (unknown) US periph venous (units (unknown) date) low extrem bi Stat unknown) (unknown) (no (unknown) (unknown) Vital Signs - 8 (units (unknown) date) hr unknown) (unknown) (no (unknown) (unknown) Vital Signs (units (un known) date) unknown) (unknown) (no (unknown) (unknown) Vital signs: (units (u nknown) date) unknown) (unknown) (no (unknown) (unknown) aerosol inhaler (units (unknown) date) (ProAir HFA) unknown) (unknown) (no (unknown) (unknown) albuterol sulfate (units (unknown) date) 90 mcg/actuation 1 unknown) puff inhalation PRN PRN Wheezing 09/17/22 (unknown) (no (unknown) (unknown) albuterol sulfate (units (unknown) date) [ProAir HFA] 90 unknown) mcg/actuation HFA aerosol inhaler (unknown) (no (unknown) (unknown) amoxicillin 875 (units (unknown) date) mg-potassium 1 tab unknown) PO BID #8 tabs 09/23/22 (unknown) (no (unknown) (unknown) amoxicillin-pot (units (unknown) date) clavulanate unknown) 875-125 mg Tablet (unknown) (no (unknown) (unknown) and safety. 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, (unknown) (no (unknown) (unknown) apixaban 2.5 mg (units (unknown) date) tablet (Eliquis) unknown) 2.5 mg PO BID 09/17/22 09/17/22 (unknown) (no (unknown) (unknown) atorvastatin 40 (units (unknown) date) mg tablet 40 mg PO unknown) DAILY 09/17/22 09/17/22 (unknown) (no (unknown) (unknown) atorvastatin 40 (units (unknown) date) mg tablet unknown) (unknown) (no (unknown) (unknown) carvedilol 25 mg (units (unknown) date) tablet (Coreg) 25 unknown) mg PO BID ##0 04/14/12 09/17/22 (unknown) (no (unknown) (unknown) carvedilol (units (unk nown) date) [Coreg] 25 MG unknown) tablet (unknown) (no (unknown) (unknown) clavulanate 125 (units (unknown) date) mg tablet unknown) (unknown) (no (unknown) (unknown) collapse down to (units (unknown) date) the floor. Patient unknown) did not hit his head. Patient denies any (unknown) (no (unknown) (unknown) docusate sodium (units (unknown) date) 100 mg Capsule unknown) (unknown) (no (unknown) (unknown) docusate sodium (units (unknown) date) 100 mg capsule 100 unknown) mg PO BID #60 caps 09/23/22 (unknown) (no (unknown) (unknown) doing that at (units ( unknown) date) [facility] daily. unknown) Yesterday, patient states that he overload that (unknown) (no (unknown) (unknown) feels comfortable (units (unknown) date) navigating this. unknown) Patient states he has no new symptoms today. (unknown) (no (unknown) (unknown) gabapentin 600 mg (units (unknown) date) tablet 600 mg PO unknown) TID 09/17/22 09/17/22 (unknown) (no (unknown) (unknown) gabapentin 600 mg (units (unknown) date) tablet unknown) (unknown) (no (unknown) (unknown) him to the ED (units ( unknown) date) today for further unknown) evaluation due to concerns of lack of mobility (unknown) (no (unknown) (unknown) his wheelchair (units (unknown) date) breaks had not unknown) been applied, he tried to transfer into the (unknown) (no (unknown) (unknown) hospitalized in (units (unknown) date) September 2022 for unknown) the decubitus ulcer, was discharged to [facility] (unknown) (no (unknown) (unknown) household (units (unkn own) date) members: spouse unknown) (unknown) (no (unknown) (unknown) however patient (units (unknown) date) states that his unknown) baseline is that his right leg is more swollen (unknown) (no (unknown) (unknown) hyperlipidemia, (units (unknown) date) CAD, history of unknown) right leg DVT sent to the ED by his home health (unknown) (no (unknown) (unknown) injuries from (units ( unknown) date) that incident. unknown) Patient lives in a [facility] home, has chair (unknown) (no (unknown) (unknown) lidocaine 5 % (units ( unknown) date) Adhesive unknown) Patch,Medicated (unknown) (no (unknown) (unknown) lidocaine 5 % (units ( unknown) date) adhesive unknown) patch,medicated (unknown) (no (unknown) (unknown) lidocaine 5 % (units ( unknown) date) topical patch 1 ea unknown) topical DAILY #30 ea 09/23/22 (unknown) (no (unknown) (unknown) lidocaine 5 % (units (u nknown) date) topical patch 1 unknown) patch transdermal Q12H PRN Pain, 09/17/22 09/17/22 (unknown) (no (unknown) (unknown) lives that takes (units (unknown) date) him from the unknown) garage to the main level, and another chair lift (unknown) (no (unknown) (unknown) nurse due to (units (u nknown) date) concerns of lack unknown) of patient mobility and safety. 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 (unknown) (no (unknown) (unknown) of the sacral (units ( unknown) date) region, CHF, [place] unknown) stent x2, pacer on chronic Eliquis, hypertension, (unknown) (no (unknown) (unknown) out of SNF funds. (units (unknown) date) Patient was set up unknown) with a home health aide at home, who sent (unknown) (no (unknown) (unknown) says he can (units (un known) date) transfer from the unknown) bed to the wheelchair successfully and has been (unknown) (no (unknown) (unknown) than the left and (units (unknown) date) he has no new leg unknown) pain. (unknown) (no (unknown) (unknown) the take some (units ( unknown) date) from the main unknown) level up to the 2nd floor where his bed is. Patient (unknown) (no (unknown) (unknown) vomiting, (units (unkn own) date) abdominal pain, unknown) dysuria, lightheadedness, dizziness, syncope. (unknown) (no (unknown) (unknown) wheelchair, which (units (unknown) date) sent the unknown) wheelchair rolling away from him, causing him to (unknown) (no (unknown) (unknown) which is a SNF. (units (unknown) date) Patient was unknown) discharged from [facility] back home due to running Result panel 97 (unknown) (no (unknown) (unknown) (no value) (units (unk nown) date) unknown) (unknown) (no (unknown) (unknown) 09/17/22 (units (unkno wn) date) unknown) (unknown) (no (unknown) (unknown) [id number] (units (unkno wn) date) unknown) (unknown) (no (unknown) (unknown) 12/17/22 16:41 (units (unknown) date) unknown) (unknown) (no (unknown) (unknown) 12/17/22 17:14 (units (unknown) date) unknown) (unknown) (no (unknown) (unknown) 12/17/22 (units (unkno wn) date) unknown) (unknown) (no (unknown) (unknown) 1 ea topical DAILY (units (unknown) date) Qty: 30 0RF unknown) (unknown) (no (unknown) (unknown) 1 patch (units (unkno wn) date) transdermal Q12H unknown) PRN (Reason: Pain, Mild) (unknown) (no (unknown) (unknown) 1 puff INHALATION (units (unknown) date) PRN PRN (Reason: unknown) Wheezing) (unknown) (no (unknown) (unknown) 1 tab PO BID Qty: (units (unknown) date) 8 0RF unknown) (unknown) (no (unknown) (unknown) 100 mg PO BID Qty: (units (unknown) date) 60 0RF unknown) (unknown) (no (unknown) (unknown) 14:41 12/17/22 (units (unknown) date) unknown) (unknown) (no (unknown) (unknown) 15:51 (units (unkno wn) date) unknown) (unknown) (no (unknown) (unknown) 2.5 mg PO BID (units ( unknown) date) unknown) (unknown) (no (unknown) (unknown) 25 mg PO BID Qty: (units (unknown) date) 0 unknown) (unknown) (no (unknown) (unknown) 40 mg PO DAILY (units (unknown) date) unknown) (unknown) (no (unknown) (unknown) 600 mg PO TID (units ( unknown) date) unknown) (unknown) (no (unknown) (unknown) 82-year-old male (units (unknown) date) with past medical unknown) history spinal cord injury, decubitus ulcer (unknown) (no (unknown) (unknown) Age/Sex: 82 / M (units (unknown) date) unknown) (unknown) (no (unknown) (unknown) Allergic/Immunolog (units (unknown) date) ic unknown) (unknown) (no (unknown) (unknown) Allergic/Immunolog (units (unknown) date) ic: Denies unknown) urticaria, Denies throat swelling and Denies (unknown) (no (unknown) (unknown) Allergies (units (unkn own) date) unknown) (unknown) (no (unknown) (unknown) Allergy/AdvReac (units (unknown) date) Type Severity unknown) Reaction Status Date / Time (unknown) (no (unknown) (unknown) Auscultation:?les (units (unknown) date) r to auscultation unknown) bilaterally (unknown) (no (unknown) (unknown) Blood Pressure (units (unknown) date) 131/73 12/17/22 unknown) 14:41 (unknown) (no (unknown) (unknown) Blood Pressure (units (unknown) date) 131/73 unknown) (unknown) (no (unknown) (unknown) Cardio (units (unkno wn) date) unknown) (unknown) (no (unknown) (unknown) Cardiovascular (units (unknown) date) unknown) (unknown) (no (unknown) (unknown) Cardiovascular: (units (unknown) date) Denies chest pain, unknown) Denies irregular heart rhythm, Denies (unknown) (no (unknown) (unknown) Chief complaint: (units (unknown) date) Extremity unknown) Problem,Nontraumati c (unknown) (no (unknown) (unknown) Chronic (units (unkno wn) date) anticoagulation unknown) (unknown) (no (unknown) (unknown) 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 unknown) (unknown) (no (unknown) (unknown) Comments: (units (unkn own) date) unknown) (unknown) (no (unknown) (unknown) Congestive heart (units (unknown) date) failure unknown) (unknown) (no (unknown) (unknown) Const (units (unkno wn) date) unknown) (unknown) (no (unknown) (unknown) Constitutional (units (unknown) date) unknown) (unknown) (no (unknown) (unknown) Constitutional: (units (unknown) date) Denies chills, unknown) Denies fatigue, Denies fever(s), Denies frequent (unknown) (no (unknown) (unknown) 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 (unknown) (no (unknown) (unknown) Coronary artery (units (unknown) date) disease unknown) (unknown) (no (unknown) (unknown) Course (units (unkno wn) date) unknown) (unknown) (no (unknown) (unknown) : 1940 (units (unknown) date) Acct:[id number] unknown) (unknown) (no (unknown) (unknown) Date of Service: (units (unknown) date) 12/17/22 unknown) (unknown) (no (unknown) (unknown) Denies frequent (units (unknown) date) falls, Denies loss unknown) of vision, Denies numbness, Denies tingling (unknown) (no (unknown) (unknown) Denies loss of (units (unknown) date) vision unknown) (unknown) (no (unknown) (unknown) Denies numbness (units (unknown) date) and Denies tingling unknown) (unknown) (no (unknown) (unknown) Departure (units (unkn own) date) unknown) (unknown) (no (unknown) (unknown) Discharge Plan (units (unknown) date) unknown) (unknown) (no (unknown) (unknown) ED Orders (units (unkn own) date) unknown) (unknown) (no (unknown) (unknown) ENT (units (unkno wn) date) unknown) (unknown) (no (unknown) (unknown) ER Physician: (units ( unknown) date) Mathieu,Hyma P.A-C unknown) (unknown) (no (unknown) (unknown) Ears, Nose, Mouth, (units (unknown) date) and Throat: Denies unknown) change in voice, Denies dizziness, Denies (unknown) (no (unknown) (unknown) Ears:?hearing (units ( unknown) date) grossly normal unknown) bilaterally (unknown) (no (unknown) (unknown) Effort + (units (unkno wn) date) Inspection:?normal unknown) respiratory effort (unknown) (no (unknown) (unknown) Eliquis 2.5 mg (units (unknown) date) tablet unknown) (unknown) (no (unknown) (unknown) Emergency Report (units (unknown) date) unknown) (unknown) (no (unknown) (unknown) Endocrine (units (unkn own) date) unknown) (unknown) (no (unknown) (unknown) Endocrine: Denies (units (unknown) date) fatigue, Denies unknown) flushing and Denies palpitations (unknown) (no (unknown) (unknown) Exam Narrative: (units (unknown) date) unknown) (unknown) (no (unknown) (unknown) Exam (units (unkno wn) date) unknown) (unknown) (no (unknown) (unknown) Eyes (units (unkno wn) date) unknown) (unknown) (no (unknown) (unknown) Eyes: Denies (units (u nknown) date) change in vision, unknown) Denies eye discharge, Denies irritation and (unknown) (no (unknown) (unknown) Face and (units (unkno wn) date) sinus:?normal unknown) facial exam and sinuses nontender (unknown) (no (unknown) (unknown) Family History (units (unknown) date) (Reviewed 12/17/22 unknown) @ 18:41 by Deondre Murdock PA-C) (unknown) (no (unknown) (unknown) Father (units (unknown) date) Congestive heart unknown) failure (unknown) (no (unknown) (unknown) Gastrointestinal (units (unknown) date) unknown) (unknown) (no (unknown) (unknown) Gastrointestinal: (units (unknown) date) Denies abdominal unknown) pain, Denies change in bowel habits, Denies (unknown) (no (unknown) (unknown) General (units (unkno wn) date) unknown) (unknown) (no (unknown) (unknown) General:?appearanc (units (unknown) date) e normal, both eyes unknown) and all related structures (unknown) (no (unknown) (unknown) General:?cooperati (units (unknown) date) ve, healthy unknown) appearing and comfortable (unknown) (no (unknown) (unknown) General:?patient (units (unknown) date) alert, patient unknown) awake and patient oriented x3 (unknown) (no (unknown) (unknown) Genitourinary (units ( unknown) date) unknown) (unknown) (no (unknown) (unknown) Genitourinary: (units (unknown) date) Denies hematuria, unknown) Denies flank pain, Denies urinary incontinence (unknown) (no (unknown) (unknown) HENMT (units (unkno wn) date) unknown) (unknown) (no (unknown) (unknown) HPI - Extremity (units (unknown) date) Problem unknown) (unknown) (no (unknown) (unknown) HPI Narrative: (units (unknown) date) unknown) (unknown) (no (unknown) (unknown) Head:?normal to (units (unknown) date) inspection unknown) (unknown) (no (unknown) (unknown) Hematologic/Lympha (units (unknown) date) tic unknown) (unknown) (no (unknown) (unknown) Hematologic/Lympha (units (unknown) date) tic: Denies easy unknown) bruising (unknown) (no (unknown) (unknown) 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) (unknown) (no (unknown) (unknown) History of Present (units (unknown) date) Illness unknown) (unknown) (no (unknown) (unknown) History of (units (unk nown) date) coronary artery unknown) stent placement (unknown) (no (unknown) (unknown) History of (units (unk nown) date) laminectomy unknown) (unknown) (no (unknown) (unknown) 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 (unknown) (no (unknown) (unknown) Home Medications (units (unknown) date) unknown) (unknown) (no (unknown) (unknown) Hyperlipidemia (units (unknown) date) unknown) (unknown) (no (unknown) (unknown) Hypertension (units (u nknown) date) unknown) (unknown) (no (unknown) (unknown) Initial Vital (units ( unknown) date) Signs unknown) (unknown) (no (unknown) (unknown) Initial Vital (units ( unknown) date) Signs: unknown) (unknown) (no (unknown) (unknown) Integumentary/Mia (units (unknown) date) sts unknown) (unknown) (no (unknown) (unknown) Intermittent (units (u nknown) date) self-catheterizatio unknown) n of bladder (unknown) (no (unknown) (unknown) [facility] (units (unknown) date) [address] unknown) [place] [address] (unknown) (no (unknown) (unknown) MDM - Extremity (units (unknown) date) (Nontraumatic) unknown) (unknown) (no (unknown) (unknown) MDM Narrative (units ( unknown) date) unknown) (unknown) (no (unknown) (unknown) Medical History (units (unknown) date) (Reviewed 12/17/22 unknown) @ 18:41 by Deondre Murdock PA-C) (unknown) (no (unknown) (unknown) Medical decision (units (unknown) date) making narrative: unknown) (unknown) (no (unknown) (unknown) Medical records (units (unknown) date) reviewed: Yes unknown) (unknown) (no (unknown) (unknown) Medication (units (unk nown) date) Instructions unknown) Recorded Confirmed (unknown) (no (unknown) (unknown) Medication (units (unk nown) date) Instructions unknown) Recorded (unknown) (no (unknown) (unknown) Mild (units (unkno wn) date) unknown) (unknown) (no (unknown) (unknown) Mode of arrival: (units (unknown) date) EMS unknown) (unknown) (no (unknown) (unknown) Mother (units (unknown) date) Cancer unknown) (unknown) (no (unknown) (unknown) Mouth:?oral (units (un known) date) mucosae normal unknown) (unknown) (no (unknown) (unknown) Musculoskeletal (units (unknown) date) unknown) (unknown) (no (unknown) (unknown) Musculoskeletal: (units (unknown) date) Denies back pain, unknown) Denies muscle weakness, Denies neck pain, (unknown) (no (unknown) (unknown) Narrative (units (unkn own) date) unknown) (unknown) (no (unknown) (unknown) Neck (units (unkno wn) date) unknown) (unknown) (no (unknown) (unknown) Neck:?normal (units (u nknown) date) visual inspection unknown) and no lymphadenopathy noted (unknown) (no (unknown) (unknown) Neuro (units (unkno wn) date) unknown) (unknown) (no (unknown) (unknown) Neurologic (units (unk nown) date) unknown) (unknown) (no (unknown) (unknown) Neurologic: Denies (units (unknown) date) behavioral changes, unknown) Denies confusion, Denies dizziness, (unknown) (no (unknown) (unknown) No Action (units (unkn own) date) unknown) (unknown) (no (unknown) (unknown) No Known Drug (units ( unknown) date) Allergies Allergy unknown) Verified 09/16/22 17:38 (unknown) (no (unknown) (unknown) Nose:?external (units (unknown) date) nose normal unknown) (unknown) (no (unknown) (unknown) Ordered: (units (unkno wn) date) unknown) (unknown) (no (unknown) (unknown) Orders (units (unkno wn) date) unknown) (unknown) (no (unknown) (unknown) Oxygen Delivery (units (unknown) date) Method Room Air unknown) 12/17/22 14:41 (unknown) (no (unknown) (unknown) Oxygen Delivery (units (unknown) date) Method Room Air unknown) (unknown) (no (unknown) (unknown) Pacemaker (units (unkn own) date) unknown) (unknown) (no (unknown) (unknown) 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) (unknown) (no (unknown) (unknown) Patient History (units (unknown) date) unknown) (unknown) (no (unknown) (unknown) Patient denies (units (unknown) date) fever, chills, unknown) chest pain, shortness of breath, nausea, (unknown) (no (unknown) (unknown) Patient's home (units (unknown) date) health aide was unknown) also concerned about patient's leg swelling, (unknown) (no (unknown) (unknown) Patient: (units (unkno wn) date) [employer] Cheema L unknown) MR#: [id number] (unknown) (no (unknown) (unknown) Prescriptions: (units (unknown) date) unknown) (unknown) (no (unknown) (unknown) Previous Rx's (units ( unknown) date) unknown) (unknown) (no (unknown) (unknown) Psychiatric (units (un known) date) unknown) (unknown) (no (unknown) (unknown) Psychiatric: Denies (units (unknown) date) anxiety, Denies unknown) behavioral changes, Denies confusion, Denies (unknown) (no (unknown) (unknown) Pulse Oximetry 93 (units (unknown) date) 12/17/22 14:41 unknown) (unknown) (no (unknown) (unknown) Pulse Oximetry 93 (units (unknown) date) unknown) (unknown) (no (unknown) (unknown) Pulse Rate 74 (units ( unknown) date) 12/17/22 14:41 unknown) (unknown) (no (unknown) (unknown) Pulse Rate 74 (units ( unknown) date) unknown) (unknown) (no (unknown) (unknown) Pulse Rate [Right (units (unknown) date) Dorsalis Pedis] 63 unknown) (unknown) (no (unknown) (unknown) ROS Unobtainable: (units (unknown) date) All systems unknown) reviewed + are unremarkable except as noted in HPI (unknown) (no (unknown) (unknown) Rate:?regular rate (units (unknown) date) unknown) (unknown) (no (unknown) (unknown) Referrals: (units (unk nown) date) unknown) (unknown) (no (unknown) (unknown) Related Data (units (u nknown) date) unknown) (unknown) (no (unknown) (unknown) Resp (units (unkno wn) date) unknown) (unknown) (no (unknown) (unknown) Respiratory Rate (units (unknown) date) 22 12/17/22 14:41 unknown) (unknown) (no (unknown) (unknown) Respiratory Rate (units (unknown) date) 22 unknown) (unknown) (no (unknown) (unknown) Respiratory (units (un known) date) unknown) (unknown) (no (unknown) (unknown) Respiratory: Denies (units (unknown) date) cough, Denies unknown) dyspnea, Denies dyspnea on exertion and Denies (unknown) (no (unknown) (unknown) Review of Systems (units (unknown) date) unknown) (unknown) (no (unknown) (unknown) Rhythm:?regular (units (unknown) date) rhythm unknown) (unknown) (no (unknown) (unknown) Vanessa Krishnamurthy DO (units (unknown) date) [Primary Care unknown) Provider] (unknown) (no (unknown) (unknown) Signed By: (units (unk nown) date) unknown) (unknown) (no (unknown) (unknown) Skin/Breast: (units (u nknown) date) Denies pruritus, unknown) Denies erythema, Denies rash and Denies wounds (unknown) (no (unknown) (unknown) Smoking Status: (units (unknown) date) Never smoker unknown) (unknown) (no (unknown) (unknown) Social History (units (unknown) date) (Reviewed 12/17/22 unknown) @ 18:41 by Deondre Murdock PA-C) (unknown) (no (unknown) (unknown) Source: patient (units (unknown) date) and EMS unknown) (unknown) (no (unknown) (unknown) 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, incomplete unknown) (unknown) (no (unknown) (unknown) Stated complaint: (units (unknown) date) Rt Leg Swelling unknown) (unknown) (no (unknown) (unknown) Substance Use (units ( unknown) date) Type: does not use unknown) (unknown) (no (unknown) (unknown) Surgical History (units (unknown) date) (Reviewed 12/17/22 unknown) @ 18:41 by Deondre Murdock PA-C) (unknown) (no (unknown) (unknown) Temperature 98.1 F (units (unknown) date) 12/17/22 14:41 unknown) (unknown) (no (unknown) (unknown) Temperature 98.1 F (units (unknown) date) unknown) (unknown) (no (unknown) (unknown) Throat:?posterior (units (unknown) date) oropharynx normal unknown) (unknown) (no (unknown) (unknown) Time Seen by (units (u nknown) date) Provider: 12/17/22 unknown) 14:35 (unknown) (no (unknown) (unknown) US periph venous (units (unknown) date) low extrem bi Stat unknown) (unknown) (no (unknown) (unknown) Vital Signs - 8 hr (units (unknown) date) unknown) (unknown) (no (unknown) (unknown) Vital Signs (units (un known) date) unknown) (unknown) (no (unknown) (unknown) Vital signs: (units (u nknown) date) unknown) (unknown) (no (unknown) (unknown) aerosol inhaler (units (unknown) date) (ProAir HFA) unknown) (unknown) (no (unknown) (unknown) albuterol sulfate (units (unknown) date) 90 mcg/actuation 1 unknown) puff inhalation PRN PRN Wheezing 09/17/22 (unknown) (no (unknown) (unknown) albuterol sulfate (units (unknown) date) [ProAir HFA] 90 unknown) mcg/actuation HFA aerosol inhaler (unknown) (no (unknown) (unknown) amoxicillin 875 (units (unknown) date) mg-potassium 1 tab unknown) PO BID #8 tabs 09/23/22 (unknown) (no (unknown) (unknown) amoxicillin-pot (units (unknown) date) clavulanate 875-125 unknown) mg Tablet (unknown) (no (unknown) (unknown) and Denies (units (unk nown) date) orthopnea unknown) (unknown) (no (unknown) (unknown) and Denies urinary (units (unknown) date) urgency unknown) (unknown) (no (unknown) (unknown) and Denies (units (unk nown) date) weakness unknown) (unknown) (no (unknown) (unknown) and below (units (unkn own) date) unknown) (unknown) (no (unknown) (unknown) and safety. 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, (unknown) (no (unknown) (unknown) apixaban 2.5 mg (units (unknown) date) tablet (Eliquis) unknown) 2.5 mg PO BID 09/17/22 09/17/22 (unknown) (no (unknown) (unknown) atorvastatin 40 mg (units (unknown) date) tablet 40 mg PO unknown) DAILY 09/17/22 09/17/22 (unknown) (no (unknown) (unknown) atorvastatin 40 mg (units (unknown) date) tablet unknown) (unknown) (no (unknown) (unknown) carvedilol 25 mg (units (unknown) date) tablet (Coreg) 25 unknown) mg PO BID ##0 04/14/12 09/17/22 (unknown) (no (unknown) (unknown) carvedilol [Coreg] (units (unknown) date) 25 MG tablet unknown) (unknown) (no (unknown) (unknown) changes. Patient (units (unknown) date) has been stable unknown) throughout the ED stay. Social work was (unknown) (no (unknown) (unknown) clavulanate 125 mg (units (unknown) date) tablet unknown) (unknown) (no (unknown) (unknown) collapse down to (units (unknown) date) the floor. Patient unknown) did not hit his head. Patient denies any (unknown) (no (unknown) (unknown) depression, Denies (units (unknown) date) homicidal ideation unknown) and Denies suicidal ideation (unknown) (no (unknown) (unknown) diarrhea, Denies (units (unknown) date) nausea and Denies unknown) vomiting (unknown) (no (unknown) (unknown) docusate sodium (units (unknown) date) 100 mg Capsule unknown) (unknown) (no (unknown) (unknown) docusate sodium (units (unknown) date) 100 mg capsule 100 unknown) mg PO BID #60 caps 09/23/22 (unknown) (no (unknown) (unknown) doing that at (units ( unknown) date) [facility] daily. unknown) Yesterday, patient states that he overload that (unknown) (no (unknown) (unknown) falls, Denies (units ( unknown) date) lethargy and Denies unknown) weakness (unknown) (no (unknown) (unknown) feels comfortable (units (unknown) date) navigating this. unknown) Patient states he has no new symptoms today. (unknown) (no (unknown) (unknown) gabapentin 600 mg (units (unknown) date) tablet 600 mg PO unknown) TID 09/17/22 09/17/22 (unknown) (no (unknown) (unknown) gabapentin 600 mg (units (unknown) date) tablet unknown) (unknown) (no (unknown) (unknown) him to the ED (units ( unknown) date) today for further unknown) evaluation due to concerns of lack of mobility (unknown) (no (unknown) (unknown) his wheelchair (units (unknown) date) breaks had not been unknown) applied, he tried to transfer into the (unknown) (no (unknown) (unknown) home with some (units (unknown) date) extra home help unknown) that social work has arranged. ED return (unknown) (no (unknown) (unknown) hospitalized in (units (unknown) date) September 2022 for unknown) the decubitus ulcer, was discharged to [facility] (unknown) (no (unknown) (unknown) household members: (units (unknown) date) spouse unknown) (unknown) (no (unknown) (unknown) however patient (units (unknown) date) states that his unknown) baseline is that his right leg is more swollen (unknown) (no (unknown) (unknown) hyperlipidemia, (units (unknown) date) CAD, history of unknown) right leg DVT sent to the ED by his home health (unknown) (no (unknown) (unknown) indication for (units (unknown) date) further unknown) intervention at this time other than regular dressing (unknown) (no (unknown) (unknown) injuries from that (units (unknown) date) incident. Patient unknown) lives in a multilevel home, has chair (unknown) (no (unknown) (unknown) involved, patient (units (unknown) date) and patient's unknown) feel comfortable with patient returning (unknown) (no (unknown) (unknown) lidocaine 5 % (units ( unknown) date) Adhesive unknown) Patch,Medicated (unknown) (no (unknown) (unknown) lidocaine 5 % (units ( unknown) date) adhesive unknown) patch,medicated (unknown) (no (unknown) (unknown) lidocaine 5 % (units ( unknown) date) topical patch 1 ea unknown) topical DAILY #30 ea 09/23/22 (unknown) (no (unknown) (unknown) lidocaine 5 % (units (u nknown) date) topical patch 1 unknown) patch transdermal Q12H PRN Pain, 09/17/22 09/17/22 (unknown) (no (unknown) (unknown) lightheadedness, (units (unknown) date) Denies unknown) palpitations, Denies dyspnea, Denies dyspnea on exertion (unknown) (no (unknown) (unknown) lives that takes (units (unknown) date) him from the garage unknown) to the main level, and another chair lift (unknown) (no (unknown) (unknown) lower extremities (units (unknown) date) shows no DVTs. The unknown) ulcer seems to be well cared for, no (unknown) (no (unknown) (unknown) neck pain, Denies (units (unknown) date) sore throat and unknown) Denies throat swelling (unknown) (no (unknown) (unknown) nurse due to (units (u nknown) date) concerns of lack of unknown) patient mobility and safety. Given no new (unknown) (no (unknown) (unknown) nurse due to (units (u nknown) date) concerns of lack of unknown) patient mobility and safety. Patient was (unknown) (no (unknown) (unknown) of the sacral (units ( unknown) date) region, CHF, [place] unknown) stent x2, pacer on chronic Eliquis, hypertension, (unknown) (no (unknown) (unknown) out of SNF funds. (units (unknown) date) Patient was set up unknown) with a home health aide at home, who sent (unknown) (no (unknown) (unknown) precautions were (units (unknown) date) discussed with unknown) patient. Patient verbalized understanding. (unknown) (no (unknown) (unknown) says he can (units (un known) date) transfer from the unknown) bed to the wheelchair successfully and has been (unknown) (no (unknown) (unknown) symptoms, will (units (unknown) date) rule out DVT due to unknown) history of DVTs. Ultrasound Doppler of the (unknown) (no (unknown) (unknown) than the left and (units (unknown) date) he has no new leg unknown) pain. (unknown) (no (unknown) (unknown) the take some from (units (unknown) date) the main level up unknown) to the 2nd floor where his bed is. Patient (unknown) (no (unknown) (unknown) vomiting, (units (unkn own) date) abdominal pain, unknown) dysuria, lightheadedness, dizziness, syncope. (unknown) (no (unknown) (unknown) wheelchair bound (units (unknown) date) unknown) (unknown) (no (unknown) (unknown) wheelchair, which (units (unknown) date) sent the wheelchair unknown) rolling away from him, causing him to (unknown) (no (unknown) (unknown) wheezing (units (unkno wn) date) unknown) (unknown) (no (unknown) (unknown) which is a SNF. (units (unknown) date) Patient was unknown) discharged from [facility] back home due to running Result panel 98 (unknown) (no (unknown) (unknown) (no value) (units (unk nown) date) unknown) (unknown) (no (unknown) (unknown) 09/17/22 (units (unkno wn) date) unknown) (unknown) (no (unknown) (unknown) [id number] (units (unkno wn) date) unknown) (unknown) (no (unknown) (unknown) 12/17/22 16:41 (units (unknown) date) unknown) (unknown) (no (unknown) (unknown) 12/17/22 17:14 (units (unknown) date) unknown) (unknown) (no (unknown) (unknown) 12/17/22 (units (unkno wn) date) unknown) (unknown) (no (unknown) (unknown) 1 ea topical DAILY (units (unknown) date) Qty: 30 0RF unknown) (unknown) (no (unknown) (unknown) 1 patch (units (o wn) date) transdermal Q12H unknown) PRN (Reason: Pain, Mild) (unknown) (no (unknown) (unknown) 1 puff INHALATION (units (unknown) date) PRN PRN (Reason: unknown) Wheezing) (unknown) (no (unknown) (unknown) 1 tab PO BID Qty: (units (unknown) date) 8 0RF unknown) (unknown) (no (unknown) (unknown) 100 mg PO BID Qty: (units (unknown) date) 60 0RF unknown) (unknown) (no (unknown) (unknown) 14:41 12/17/22 (units (unknown) date) unknown) (unknown) (no (unknown) (unknown) 15:51 (units (unkno wn) date) unknown) (unknown) (no (unknown) (unknown) 2.5 mg PO BID (units ( unknown) date) unknown) (unknown) (no (unknown) (unknown) 25 mg PO BID Qty: (units (unknown) date) 0 unknown) (unknown) (no (unknown) (unknown) 40 mg PO DAILY (units (unknown) date) unknown) (unknown) (no (unknown) (unknown) 5 cm x 5 cm grade (units (unknown) date) 3 sacral decubitus unknown) ulcer with no purulence, slight serous (unknown) (no (unknown) (unknown) 600 mg PO TID (units ( unknown) date) unknown) (unknown) (no (unknown) (unknown) 82-year-old male (units (unknown) date) with past medical unknown) history spinal cord injury, decubitus ulcer (unknown) (no (unknown) (unknown) Age/Sex: 82 / M (units (unknown) date) unknown) (unknown) (no (unknown) (unknown) Allergic/Immunolog (units (unknown) date) ic unknown) (unknown) (no (unknown) (unknown) Allergic/Immunolog (units (unknown) date) ic: Denies unknown) urticaria, Denies throat swelling and Denies (unknown) (no (unknown) (unknown) Allergies (units (unkn own) date) unknown) (unknown) (no (unknown) (unknown) Allergy/AdvReac (units (unknown) date) Type Severity unknown) Reaction Status Date / Time (unknown) (no (unknown) (unknown) Auscultation:?les (units (unknown) date) r to auscultation unknown) bilaterally (unknown) (no (unknown) (unknown) Blood Pressure (units (unknown) date) 131/73 12/17/22 unknown) 14:41 (unknown) (no (unknown) (unknown) Blood Pressure (units (unknown) date) 131/73 unknown) (unknown) (no (unknown) (unknown) Cardio (units (unkno wn) date) unknown) (unknown) (no (unknown) (unknown) Cardiovascular (units (unknown) date) unknown) (unknown) (no (unknown) (unknown) Cardiovascular: (units (unknown) date) Denies chest pain, unknown) Denies irregular heart rhythm, Denies (unknown) (no (unknown) (unknown) Chief complaint: (units (unknown) date) Extremity unknown) Problem,Nontraumati c (unknown) (no (unknown) (unknown) Chronic (units (unkno wn) date) anticoagulation unknown) (unknown) (no (unknown) (unknown) 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 unknown) (unknown) (no (unknown) (unknown) Comments: (units (unkn own) date) unknown) (unknown) (no (unknown) (unknown) Congestive heart (units (unknown) date) failure unknown) (unknown) (no (unknown) (unknown) Const (units (unkno wn) date) unknown) (unknown) (no (unknown) (unknown) Constitutional (units (unknown) date) unknown) (unknown) (no (unknown) (unknown) Constitutional: (units (unknown) date) Denies chills, unknown) Denies fatigue, Denies fever(s), Denies frequent (unknown) (no (unknown) (unknown) 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 (unknown) (no (unknown) (unknown) Coronary artery (units (unknown) date) disease unknown) (unknown) (no (unknown) (unknown) Course (units (unkno wn) date) unknown) (unknown) (no (unknown) (unknown) : 1940 (units (unknown) date) Acct:[id number] unknown) (unknown) (no (unknown) (unknown) Date of Service: (units (unknown) date) 12/17/22 unknown) (unknown) (no (unknown) (unknown) Denies frequent (units (unknown) date) falls, Denies loss unknown) of vision, Denies numbness, Denies tingling (unknown) (no (unknown) (unknown) Denies loss of (units (unknown) date) vision unknown) (unknown) (no (unknown) (unknown) Denies numbness (units (unknown) date) and Denies tingling unknown) (unknown) (no (unknown) (unknown) Departure (units (unkn own) date) unknown) (unknown) (no (unknown) (unknown) Discharge Plan (units (unknown) date) unknown) (unknown) (no (unknown) (unknown) ED Orders (units (unkn own) date) unknown) (unknown) (no (unknown) (unknown) ENT (units (unkno wn) date) unknown) (unknown) (no (unknown) (unknown) ER Physician: (units ( unknown) date) Mathieu,Hyma P.A-C unknown) (unknown) (no (unknown) (unknown) Ears, Nose, Mouth, (units (unknown) date) and Throat: Denies unknown) change in voice, Denies dizziness, Denies (unknown) (no (unknown) (unknown) Ears:?hearing (units ( unknown) date) grossly normal unknown) bilaterally (unknown) (no (unknown) (unknown) Effort + (units (unkno wn) date) Inspection:?normal unknown) respiratory effort (unknown) (no (unknown) (unknown) Eliquis 2.5 mg (units (unknown) date) tablet unknown) (unknown) (no (unknown) (unknown) Emergency Report (units (unknown) date) unknown) (unknown) (no (unknown) (unknown) Endocrine (units (unkn own) date) unknown) (unknown) (no (unknown) (unknown) Endocrine: Denies (units (unknown) date) fatigue, Denies unknown) flushing and Denies palpitations (unknown) (no (unknown) (unknown) Exam Narrative: (units (unknown) date) unknown) (unknown) (no (unknown) (unknown) Exam (units (unkno wn) date) unknown) (unknown) (no (unknown) (unknown) Eyes (units (unkno wn) date) unknown) (unknown) (no (unknown) (unknown) Eyes: Denies (units (u nknown) date) change in vision, unknown) Denies eye discharge, Denies irritation and (unknown) (no (unknown) (unknown) Face and (units (unkno wn) date) sinus:?normal unknown) facial exam and sinuses nontender (unknown) (no (unknown) (unknown) Family History (units (unknown) date) (Reviewed 12/17/22 unknown) @ 18:41 by Deondre Murdock PA-C) (unknown) (no (unknown) (unknown) Father (units (unknown) date) Congestive heart unknown) failure (unknown) (no (unknown) (unknown) Gastrointestinal (units (unknown) date) unknown) (unknown) (no (unknown) (unknown) Gastrointestinal: (units (unknown) date) Denies abdominal unknown) pain, Denies change in bowel habits, Denies (unknown) (no (unknown) (unknown) General (units (unkno wn) date) unknown) (unknown) (no (unknown) (unknown) General:?appearanc (units (unknown) date) e normal, both eyes unknown) and all related structures (unknown) (no (unknown) (unknown) General:?cooperati (units (unknown) date) ve, healthy unknown) appearing and comfortable (unknown) (no (unknown) (unknown) General:?patient (units (unknown) date) alert, patient unknown) awake and patient oriented x3 (unknown) (no (unknown) (unknown) Genitourinary (units ( unknown) date) unknown) (unknown) (no (unknown) (unknown) Genitourinary: (units (unknown) date) Denies hematuria, unknown) Denies flank pain, Denies urinary incontinence (unknown) (no (unknown) (unknown) HENMT (units (unkno wn) date) unknown) (unknown) (no (unknown) (unknown) HPI - Extremity (units (unknown) date) Problem unknown) (unknown) (no (unknown) (unknown) HPI Narrative: (units (unknown) date) unknown) (unknown) (no (unknown) (unknown) Head:?normal to (units (unknown) date) inspection unknown) (unknown) (no (unknown) (unknown) Hematologic/Lympha (units (unknown) date) tic unknown) (unknown) (no (unknown) (unknown) Hematologic/Lympha (units (unknown) date) tic: Denies easy unknown) bruising (unknown) (no (unknown) (unknown) 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) (unknown) (no (unknown) (unknown) History of Present (units (unknown) date) Illness unknown) (unknown) (no (unknown) (unknown) History of (units (unk nown) date) coronary artery unknown) stent placement (unknown) (no (unknown) (unknown) History of (units (unk nown) date) laminectomy unknown) (unknown) (no (unknown) (unknown) 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 (unknown) (no (unknown) (unknown) Home Medications (units (unknown) date) unknown) (unknown) (no (unknown) (unknown) Hyperlipidemia (units (unknown) date) unknown) (unknown) (no (unknown) (unknown) Hypertension (units (u nknown) date) unknown) (unknown) (no (unknown) (unknown) Initial Vital (units ( unknown) date) Signs unknown) (unknown) (no (unknown) (unknown) Initial Vital (units ( unknown) date) Signs: unknown) (unknown) (no (unknown) (unknown) Integumentary (units ( unknown) date) unknown) (unknown) (no (unknown) (unknown) Integumentary/Mia (units (unknown) date) sts unknown) (unknown) (no (unknown) (unknown) Intermittent (units (u nknown) date) self-catheterizatio unknown) n of bladder (unknown) (no (unknown) (unknown) [facility] (units (unknown) date) [address] unknown) [place] [address] (unknown) (no (unknown) (unknown) MDM - Extremity (units (unknown) date) (Nontraumatic) unknown) (unknown) (no (unknown) (unknown) MDM Narrative (units ( unknown) date) unknown) (unknown) (no (unknown) (unknown) Medical History (units (unknown) date) (Reviewed 12/17/22 unknown) @ 18:41 by Deondre Murdock PA-C) (unknown) (no (unknown) (unknown) Medical decision (units (unknown) date) making narrative: unknown) (unknown) (no (unknown) (unknown) Medical records (units (unknown) date) reviewed: Yes unknown) (unknown) (no (unknown) (unknown) Medication (units (unk nown) date) Instructions unknown) Recorded Confirmed (unknown) (no (unknown) (unknown) Medication (units (unk nown) date) Instructions unknown) Recorded (unknown) (no (unknown) (unknown) Mild (units (unkno wn) date) unknown) (unknown) (no (unknown) (unknown) Mode of arrival: (units (unknown) date) EMS unknown) (unknown) (no (unknown) (unknown) Mother (units (unknown) date) Cancer unknown) (unknown) (no (unknown) (unknown) Mouth:?oral (units (un known) date) mucosae normal unknown) (unknown) (no (unknown) (unknown) Musculoskeletal (units (unknown) date) unknown) (unknown) (no (unknown) (unknown) Musculoskeletal: (units (unknown) date) Denies back pain, unknown) Denies muscle weakness, Denies neck pain, (unknown) (no (unknown) (unknown) Narrative (units (unkn own) date) unknown) (unknown) (no (unknown) (unknown) Neck (units (unkno wn) date) unknown) (unknown) (no (unknown) (unknown) Neck:?normal (units (u nknown) date) visual inspection unknown) and no lymphadenopathy noted (unknown) (no (unknown) (unknown) Neuro (units (unkno wn) date) unknown) (unknown) (no (unknown) (unknown) Neurologic (units (unk nown) date) unknown) (unknown) (no (unknown) (unknown) Neurologic: Denies (units (unknown) date) behavioral changes, unknown) Denies confusion, Denies dizziness, (unknown) (no (unknown) (unknown) No Action (units (unkn own) date) unknown) (unknown) (no (unknown) (unknown) No Known Drug (units ( unknown) date) Allergies Allergy unknown) Verified 09/16/22 17:38 (unknown) (no (unknown) (unknown) Nose:?external (units (unknown) date) nose normal unknown) (unknown) (no (unknown) (unknown) Ordered: (units (unkno wn) date) unknown) (unknown) (no (unknown) (unknown) Orders (units (unkno wn) date) unknown) (unknown) (no (unknown) (unknown) Oxygen Delivery (units (unknown) date) Method Room Air unknown) 12/17/22 14:41 (unknown) (no (unknown) (unknown) Oxygen Delivery (units (unknown) date) Method Room Air unknown) (unknown) (no (unknown) (unknown) Pacemaker (units (unkn own) date) unknown) (unknown) (no (unknown) (unknown) 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) (unknown) (no (unknown) (unknown) Patient History (units (unknown) date) unknown) (unknown) (no (unknown) (unknown) Patient denies (units (unknown) date) fever, chills, unknown) chest pain, shortness of breath, nausea, (unknown) (no (unknown) (unknown) Patient's home (units (unknown) date) health aide was unknown) also concerned about patient's leg swelling, (unknown) (no (unknown) (unknown) Patient: (units (unkno wn) date) [employer]ema L unknown) MR#: [id number] (unknown) (no (unknown) (unknown) Prescriptions: (units (unknown) date) unknown) (unknown) (no (unknown) (unknown) Previous Rx's (units ( unknown) date) unknown) (unknown) (no (unknown) (unknown) Psychiatric (units (un known) date) unknown) (unknown) (no (unknown) (unknown) Psychiatric: Denies (units (unknown) date) anxiety, Denies unknown) behavioral changes, Denies confusion, Denies (unknown) (no (unknown) (unknown) Pulse Oximetry 93 (units (unknown) date) 12/17/22 14:41 unknown) (unknown) (no (unknown) (unknown) Pulse Oximetry 93 (units (unknown) date) unknown) (unknown) (no (unknown) (unknown) Pulse Rate 74 (units ( unknown) date) 12/17/22 14:41 unknown) (unknown) (no (unknown) (unknown) Pulse Rate 74 (units ( unknown) date) unknown) (unknown) (no (unknown) (unknown) Pulse Rate [Right (units (unknown) date) Dorsalis Pedis] 63 unknown) (unknown) (no (unknown) (unknown) ROS Unobtainable: (units (unknown) date) All systems unknown) reviewed + are unremarkable except as noted in HPI (unknown) (no (unknown) (unknown) Rate:?regular rate (units (unknown) date) unknown) (unknown) (no (unknown) (unknown) Referrals: (units (unk nown) date) unknown) (unknown) (no (unknown) (unknown) Related Data (units (u nknown) date) unknown) (unknown) (no (unknown) (unknown) Resp (units (unkno wn) date) unknown) (unknown) (no (unknown) (unknown) Respiratory Rate (units (unknown) date) 22 12/17/22 14:41 unknown) (unknown) (no (unknown) (unknown) Respiratory Rate (units (unknown) date) 22 unknown) (unknown) (no (unknown) (unknown) Respiratory (units (un known) date) unknown) (unknown) (no (unknown) (unknown) Respiratory: Denies (units (unknown) date) cough, Denies unknown) dyspnea, Denies dyspnea on exertion and Denies (unknown) (no (unknown) (unknown) Review of Systems (units (unknown) date) unknown) (unknown) (no (unknown) (unknown) Rhythm:?regular (units (unknown) date) rhythm unknown) (unknown) (no (unknown) (unknown) Right leg appears (units (unknown) date) slightly more unknown) swollen than the left, which is baseline per (unknown) (no (unknown) (unknown) Vanessa Krishnamurthy DO (units (unknown) date) [Primary Care unknown) Provider] (unknown) (no (unknown) (unknown) Signed By: (units (unk nown) date) unknown) (unknown) (no (unknown) (unknown) Skin/Breast: (units (u nknown) date) Denies pruritus, unknown) Denies erythema, Denies rash and Denies wounds (unknown) (no (unknown) (unknown) Smoking Status: (units (unknown) date) Never smoker unknown) (unknown) (no (unknown) (unknown) Social History (units (unknown) date) (Reviewed 12/17/22 unknown) @ 18:41 by Deondre Murdock PA-C) (unknown) (no (unknown) (unknown) Source: patient (units (unknown) date) and EMS unknown) (unknown) (no (unknown) (unknown) 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, incomplete unknown) (unknown) (no (unknown) (unknown) Stated complaint: (units (unknown) date) Rt Leg Swelling unknown) (unknown) (no (unknown) (unknown) Substance Use (units ( unknown) date) Type: does not use unknown) (unknown) (no (unknown) (unknown) Surgical History (units (unknown) date) (Reviewed 12/17/22 unknown) @ 18:41 by Deondre Murdock PA-C) (unknown) (no (unknown) (unknown) Temperature 98.1 F (units (unknown) date) 12/17/22 14:41 unknown) (unknown) (no (unknown) (unknown) Temperature 98.1 F (units (unknown) date) unknown) (unknown) (no (unknown) (unknown) Throat:?posterior (units (unknown) date) oropharynx normal unknown) (unknown) (no (unknown) (unknown) Time Seen by (units (u nknown) date) Provider: 12/17/22 unknown) 14:35 (unknown) (no (unknown) (unknown) US periph venous (units (unknown) date) low extrem bi Stat unknown) (unknown) (no (unknown) (unknown) Vital Signs - 8 hr (units (unknown) date) unknown) (unknown) (no (unknown) (unknown) Vital Signs (units (un known) date) unknown) (unknown) (no (unknown) (unknown) Vital signs: (units (u nknown) date) unknown) (unknown) (no (unknown) (unknown) aerosol inhaler (units (unknown) date) (ProAir HFA) unknown) (unknown) (no (unknown) (unknown) albuterol sulfate (units (unknown) date) 90 mcg/actuation 1 unknown) puff inhalation PRN PRN Wheezing 09/17/22 (unknown) (no (unknown) (unknown) albuterol sulfate (units (unknown) date) [ProAir HFA] 90 unknown) mcg/actuation HFA aerosol inhaler (unknown) (no (unknown) (unknown) amoxicillin 875 (units (unknown) date) mg-potassium 1 tab unknown) PO BID #8 tabs 09/23/22 (unknown) (no (unknown) (unknown) amoxicillin-pot (units (unknown) date) clavulanate 875-125 unknown) mg Tablet (unknown) (no (unknown) (unknown) and Denies (units (unk nown) date) orthopnea unknown) (unknown) (no (unknown) (unknown) and Denies urinary (units (unknown) date) urgency unknown) (unknown) (no (unknown) (unknown) and Denies (units (unk nown) date) weakness unknown) (unknown) (no (unknown) (unknown) and below (units (unkn own) date) unknown) (unknown) (no (unknown) (unknown) and safety. 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 ED unknown) return precautions were discussed with (unknown) (no (unknown) (unknown) atorvastatin 40 mg (units (unknown) date) tablet 40 mg PO unknown) DAILY 09/17/22 09/17/22 (unknown) (no (unknown) (unknown) atorvastatin 40 mg (units (unknown) date) tablet unknown) (unknown) (no (unknown) (unknown) carvedilol 25 mg (units (unknown) date) tablet (Coreg) 25 unknown) mg PO BID ##0 04/14/12 09/17/22 (unknown) (no (unknown) (unknown) carvedilol [Coreg] (units (unknown) date) 25 MG tablet unknown) (unknown) (no (unknown) (unknown) changes. Patient (units (unknown) date) has been stable unknown) throughout the ED stay. Social work was (unknown) (no (unknown) (unknown) clavulanate 125 mg (units (unknown) date) tablet unknown) (unknown) (no (unknown) (unknown) collapse down to (units (unknown) date) the floor. Patient unknown) did not hit his head. Patient denies any (unknown) (no (unknown) (unknown) depression, Denies (units (unknown) date) homicidal ideation unknown) and Denies suicidal ideation (unknown) (no (unknown) (unknown) diarrhea, Denies (units (unknown) date) nausea and Denies unknown) vomiting (unknown) (no (unknown) (unknown) discharge. Wound (units (unknown) date) appears to have unknown) been well taken care of and recently dressed. (unknown) (no (unknown) (unknown) docusate sodium (units (unknown) date) 100 mg Capsule unknown) (unknown) (no (unknown) (unknown) docusate sodium (units (unknown) date) 100 mg capsule 100 unknown) mg PO BID #60 caps 09/23/22 (unknown) (no (unknown) (unknown) doing that at (units ( unknown) date) [facility] daily. unknown) Yesterday, patient states that he overload that (unknown) (no (unknown) (unknown) falls, Denies (units ( unknown) date) lethargy and Denies unknown) weakness (unknown) (no (unknown) (unknown) feels comfortable (units (unknown) date) navigating this. unknown) Patient states he has no new symptoms today. (unknown) (no (unknown) (unknown) gabapentin 600 mg (units (unknown) date) tablet 600 mg PO unknown) TID 09/17/22 09/17/22 (unknown) (no (unknown) (unknown) gabapentin 600 mg (units (unknown) date) tablet unknown) (unknown) (no (unknown) (unknown) him to the ED (units ( unknown) date) today for further unknown) evaluation due to concerns of lack of mobility (unknown) (no (unknown) (unknown) his wheelchair (units (unknown) date) breaks had not been unknown) applied, he tried to transfer into the (unknown) (no (unknown) (unknown) home with some (units (unknown) date) extra home help unknown) that social work has arranged. BLS transport (unknown) (no (unknown) (unknown) hospitalized in (units (unknown) date) September 2022 for unknown) the decubitus ulcer, was discharged to [facility] (unknown) (no (unknown) (unknown) household members: (units (unknown) date) spouse unknown) (unknown) (no (unknown) (unknown) however patient (units (unknown) date) states that his unknown) baseline is that his right leg is more swollen (unknown) (no (unknown) (unknown) hyperlipidemia, (units (unknown) date) CAD, history of unknown) right leg DVT sent to the ED by his home health (unknown) (no (unknown) (unknown) indication for (units (unknown) date) further unknown) intervention at this time other than regular dressing (unknown) (no (unknown) (unknown) injuries from that (units (unknown) date) incident. Patient unknown) lives in a multilevel home, has chair (unknown) (no (unknown) (unknown) involved, patient (units (unknown) date) and patient's unknown) feel comfortable with patient returning (unknown) (no (unknown) (unknown) lidocaine 5 % (units ( unknown) date) Adhesive unknown) Patch,Medicated (unknown) (no (unknown) (unknown) lidocaine 5 % (units ( unknown) date) adhesive unknown) patch,medicated (unknown) (no (unknown) (unknown) lidocaine 5 % (units ( unknown) date) topical patch 1 ea unknown) topical DAILY #30 ea 09/23/22 (unknown) (no (unknown) (unknown) lidocaine 5 % (units (u nknown) date) topical patch 1 unknown) patch transdermal Q12H PRN Pain, 09/17/22 09/17/22 (unknown) (no (unknown) (unknown) lightheadedness, (units (unknown) date) Denies unknown) palpitations, Denies dyspnea, Denies dyspnea on exertion (unknown) (no (unknown) (unknown) lives that takes (units (unknown) date) him from the garage unknown) to the main level, and another chair lift (unknown) (no (unknown) (unknown) lower extremities (units (unknown) date) shows no DVTs. The unknown) ulcer seems to be well cared for, no (unknown) (no (unknown) (unknown) neck pain, Denies (units (unknown) date) sore throat and unknown) Denies throat swelling (unknown) (no (unknown) (unknown) nurse due to (units (u nknown) date) concerns of lack of unknown) patient mobility and safety. Given no new (unknown) (no (unknown) (unknown) nurse due to (units (u nknown) date) concerns of lack of unknown) patient mobility and safety. Patient was (unknown) (no (unknown) (unknown) of the sacral (units ( unknown) date) region, CHF, [place] unknown) stent x2, pacer on chronic Eliquis, hypertension, (unknown) (no (unknown) (unknown) out of SNF funds. (units (unknown) date) Patient was set up unknown) with a home health aide at home, who sent (unknown) (no (unknown) (unknown) patient. Patient (units (unknown) date) verbalized unknown) understanding. (unknown) (no (unknown) (unknown) patient. (units (unkno wn) date) unknown) (unknown) (no (unknown) (unknown) says he can (units (un known) date) transfer from the unknown) bed to the wheelchair successfully and has been (unknown) (no (unknown) (unknown) symptoms, will (units (unknown) date) rule out DVT due to unknown) history of DVTs. Ultrasound Doppler of the (unknown) (no (unknown) (unknown) than the left and (units (unknown) date) he has no new leg unknown) pain. (unknown) (no (unknown) (unknown) the take some from (units (unknown) date) the main level up unknown) to the 2nd floor where his bed is. Patient (unknown) (no (unknown) (unknown) vomiting, (units (unkn own) date) abdominal pain, unknown) dysuria, lightheadedness, dizziness, syncope. (unknown) (no (unknown) (unknown) wheelchair bound (units (unknown) date) unknown) (unknown) (no (unknown) (unknown) wheelchair, which (units (unknown) date) sent the wheelchair unknown) rolling away from him, causing him to (unknown) (no (unknown) (unknown) wheezing (units (unkno wn) date) unknown) (unknown) (no (unknown) (unknown) which is a SNF. (units (unknown) date) Patient was unknown) discharged from [facility] back home due to running Result panel 99 (unknown) (no (unknown) (unknown) (no value) (units (unk nown) date) unknown) (unknown) (no (unknown) (unknown) <Electronically (units (unknown) date) signed by Deondre head) Favian Murdock> (unknown) (no (unknown) (unknown) <Electronically (units (unknown) date) signed by Black unknown) Omaira Macedo> (unknown) (no (unknown) (unknown) <Electronically (units (unknown) date) signed by Black head) Hellen Castano> (unknown) (no (unknown) (unknown) <Deondre Murdock PA-C (units (unknown) date) - Last Filed: unknown) 12/17/22 18:50> (unknown) (no (unknown) (unknown) <Black Castano, (units (unknown) date) DO - Last Filed: unknown) 12/17/22 18:51> (unknown) (no (unknown) (unknown) <cosigner> (units (unk nown) date) unknown) (unknown) (no (unknown) (unknown) 09/17/22 (units (unkno wn) date) unknown) (unknown) (no (unknown) (unknown) [id number] (units (unkno wn) date) unknown) (unknown) (no (unknown) (unknown) 12/17/22 16:41 (units (unknown) date) unknown) (unknown) (no (unknown) (unknown) 12/17/22 17:14 (units (unknown) date) unknown) (unknown) (no (unknown) (unknown) 12/17/221849 (units ( unknown) date) unknown) (unknown) (no (unknown) (unknown) 12/17/221850 (units ( unknown) date) unknown) (unknown) (no (unknown) (unknown) 12/17/22 (units (unkno wn) date) unknown) (unknown) (no (unknown) (unknown) 1 ea topical DAILY (units (unknown) date) Qty: 30 0RF unknown) (unknown) (no (unknown) (unknown) 1 patch (units (unkno wn) date) transdermal Q12H unknown) PRN (Reason: Pain, Mild) (unknown) (no (unknown) (unknown) 1 puff INHALATION (units (unknown) date) PRN PRN (Reason: unknown) Wheezing) (unknown) (no (unknown) (unknown) 1 tab PO BID Qty: (units (unknown) date) 8 0RF unknown) (unknown) (no (unknown) (unknown) 100 mg PO BID Qty: (units (unknown) date) 60 0RF unknown) (unknown) (no (unknown) (unknown) 14:41 12/17/22 (units (unknown) date) unknown) (unknown) (no (unknown) (unknown) 15:51 (units (unkno wn) date) unknown) (unknown) (no (unknown) (unknown) 2.5 mg PO BID (units ( unknown) date) unknown) (unknown) (no (unknown) (unknown) 25 mg PO BID Qty: (units (unknown) date) 0 unknown) (unknown) (no (unknown) (unknown) 40 mg PO DAILY (units (unknown) date) unknown) (unknown) (no (unknown) (unknown) 5 cm x 5 cm grade (units (unknown) date) 3 sacral decubitus unknown) ulcer with no purulence, slight serous (unknown) (no (unknown) (unknown) 600 mg PO TID (units ( unknown) date) unknown) (unknown) (no (unknown) (unknown) 82-year-old male (units (unknown) date) with past medical unknown) history spinal cord injury, decubitus ulcer (unknown) (no (unknown) (unknown) Activity (units (unkno wn) date) Restrictions/Additi unknown) onal Instructions: (unknown) (no (unknown) (unknown) Age/Sex: 82 / M (units (unknown) date) unknown) (unknown) (no (unknown) (unknown) Allergic/Immunolog (units (unknown) date) ic unknown) (unknown) (no (unknown) (unknown) Allergic/Immunolog (units (unknown) date) ic: Denies unknown) urticaria, Denies throat swelling and Denies (unknown) (no (unknown) (unknown) Allergies (units (unkn own) date) unknown) (unknown) (no (unknown) (unknown) Allergy/AdvReac (units (unknown) date) Type Severity unknown) Reaction Status Date / Time (unknown) (no (unknown) (unknown) Auscultation:?les (units (unknown) date) r to auscultation unknown) bilaterally (unknown) (no (unknown) (unknown) Blood Pressure (units (unknown) date) 131/73 12/17/22 unknown) 14:41 (unknown) (no (unknown) (unknown) Blood Pressure (units (unknown) date) 131/73 unknown) (unknown) (no (unknown) (unknown) Cardio (units (unkno wn) date) unknown) (unknown) (no (unknown) (unknown) Cardiovascular (units (unknown) date) unknown) (unknown) (no (unknown) (unknown) Cardiovascular: (units (unknown) date) Denies chest pain, unknown) Denies irregular heart rhythm, Denies (unknown) (no (unknown) (unknown) Chief complaint: (units (unknown) date) Extremity unknown) Problem,Nontraumati c (unknown) (no (unknown) (unknown) Chronic (units (unkno wn) date) anticoagulation unknown) (unknown) (no (unknown) (unknown) 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 unknown) (unknown) (no (unknown) (unknown) Clinical (units (unkno wn) date) Impression: unknown) (unknown) (no (unknown) (unknown) Comments: (units (unkn own) date) unknown) (unknown) (no (unknown) (unknown) Congestive heart (units (unknown) date) failure unknown) (unknown) (no (unknown) (unknown) Const (units (unkno wn) date) unknown) (unknown) (no (unknown) (unknown) Constitutional (units (unknown) date) unknown) (unknown) (no (unknown) (unknown) Constitutional: (units (unknown) date) Denies chills, unknown) Denies fatigue, Denies fever(s), Denies frequent (unknown) (no (unknown) (unknown) 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 (unknown) (no (unknown) (unknown) Coronary artery (units (unknown) date) disease unknown) (unknown) (no (unknown) (unknown) Cosign (units (unkno wn) date) unknown) (unknown) (no (unknown) (unknown) Course (units (unkno wn) date) unknown) (unknown) (no (unknown) (unknown) : 1940 (units (unknown) date) Acct:[id number] unknown) (unknown) (no (unknown) (unknown) Date of Service: (units (unknown) date) 12/17/22 unknown) (unknown) (no (unknown) (unknown) Denies frequent (units (unknown) date) falls, Denies loss unknown) of vision, Denies numbness, Denies tingling (unknown) (no (unknown) (unknown) Denies loss of (units (unknown) date) vision unknown) (unknown) (no (unknown) (unknown) Denies numbness (units (unknown) date) and Denies tingling unknown) (unknown) (no (unknown) (unknown) Departure (units (unkn own) date) unknown) (unknown) (no (unknown) (unknown) Discharge Plan (units (unknown) date) unknown) (unknown) (no (unknown) (unknown) Dr Castano Co-Sign (units (unknown) date) Statement: I was unknown) available for consultation during this (unknown) (no (unknown) (unknown) ED Attending (units (u nknown) date) Cosignature unknown) Attestation: (unknown) (no (unknown) (unknown) ED Orders (units (unkn own) date) unknown) (unknown) (no (unknown) (unknown) ENT (units (unkno wn) date) unknown) (unknown) (no (unknown) (unknown) ER Physician: (units ( unknown) date) MathieuDeondre P.A-C unknown) (unknown) (no (unknown) (unknown) Ears, Nose, Mouth, (units (unknown) date) and Throat: Denies unknown) change in voice, Denies dizziness, Denies (unknown) (no (unknown) (unknown) Ears:?hearing (units ( unknown) date) grossly normal unknown) bilaterally (unknown) (no (unknown) (unknown) Effort + (units (unkno wn) date) Inspection:?normal unknown) respiratory effort (unknown) (no (unknown) (unknown) Eliquis 2.5 mg (units (unknown) date) tablet unknown) (unknown) (no (unknown) (unknown) Emergency Report (units (unknown) date) unknown) (unknown) (no (unknown) (unknown) Endocrine (units (unkn own) date) unknown) (unknown) (no (unknown) (unknown) Endocrine: Denies (units (unknown) date) fatigue, Denies unknown) flushing and Denies palpitations (unknown) (no (unknown) (unknown) Exam Narrative: (units (unknown) date) unknown) (unknown) (no (unknown) (unknown) Exam (units (unkno wn) date) unknown) (unknown) (no (unknown) (unknown) Eyes (units (unkno wn) date) unknown) (unknown) (no (unknown) (unknown) Eyes: Denies (units (u nknown) date) change in vision, unknown) Denies eye discharge, Denies irritation and (unknown) (no (unknown) (unknown) Face and (units (unkno wn) date) sinus:?normal unknown) facial exam and sinuses nontender (unknown) (no (unknown) (unknown) Family History (units (unknown) date) (Reviewed 12/17/22 unknown) @ 18:41 by Deondre Murdock PA-C) (unknown) (no (unknown) (unknown) Father (units (unknown) date) Congestive heart unknown) failure (unknown) (no (unknown) (unknown) Gastrointestinal (units (unknown) date) unknown) (unknown) (no (unknown) (unknown) Gastrointestinal: (units (unknown) date) Denies abdominal unknown) pain, Denies change in bowel habits, Denies (unknown) (no (unknown) (unknown) General (units (unkno wn) date) unknown) (unknown) (no (unknown) (unknown) General:?appearanc (units (unknown) date) e normal, both eyes unknown) and all related structures (unknown) (no (unknown) (unknown) General:?cooperati (units (unknown) date) ve, healthy unknown) appearing and comfortable (unknown) (no (unknown) (unknown) General:?patient (units (unknown) date) alert, patient unknown) awake and patient oriented x3 (unknown) (no (unknown) (unknown) Genitourinary (units ( unknown) date) unknown) (unknown) (no (unknown) (unknown) Genitourinary: (units (unknown) date) Denies hematuria, unknown) Denies flank pain, Denies urinary incontinence (unknown) (no (unknown) (unknown) HENMT (units (unkno wn) date) unknown) (unknown) (no (unknown) (unknown) HPI - Extremity (units (unknown) date) Problem unknown) (unknown) (no (unknown) (unknown) HPI Narrative: (units (unknown) date) unknown) (unknown) (no (unknown) (unknown) Head:?normal to (units (unknown) date) inspection unknown) (unknown) (no (unknown) (unknown) Hematologic/Lympha (units (unknown) date) tic unknown) (unknown) (no (unknown) (unknown) Hematologic/Lympha (units (unknown) date) tic: Denies easy unknown) bruising (unknown) (no (unknown) (unknown) 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) (unknown) (no (unknown) (unknown) History of Present (units (unknown) date) Illness unknown) (unknown) (no (unknown) (unknown) History of (units (unk nown) date) coronary artery unknown) stent placement (unknown) (no (unknown) (unknown) History of (units (unk nown) date) laminectomy unknown) (unknown) (no (unknown) (unknown) 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 (unknown) (no (unknown) (unknown) Home Medications (units (unknown) date) unknown) (unknown) (no (unknown) (unknown) Hyperlipidemia (units (unknown) date) unknown) (unknown) (no (unknown) (unknown) Hypertension (units (u nknown) date) unknown) (unknown) (no (unknown) (unknown) Initial Vital (units ( unknown) date) Signs unknown) (unknown) (no (unknown) (unknown) Initial Vital (units ( unknown) date) Signs: unknown) (unknown) (no (unknown) (unknown) Instructions: DI (units (unknown) date) for Leg Pain unknown) (unknown) (no (unknown) (unknown) Integumentary (units ( unknown) date) unknown) (unknown) (no (unknown) (unknown) Integumentary/Mia (units (unknown) date) sts unknown) (unknown) (no (unknown) (unknown) Intermittent (units (u nknown) date) self-catheterizatio unknown) n of bladder (unknown) (no (unknown) (unknown) [facility] (units (unknown) date) [address] unknown) [place] [address] (unknown) (no (unknown) (unknown) Leg swelling (units (u nknown) date) unknown) (unknown) (no (unknown) (unknown) MDM - Extremity (units (unknown) date) (Nontraumatic) unknown) (unknown) (no (unknown) (unknown) MDM Narrative (units ( unknown) date) unknown) (unknown) (no (unknown) (unknown) Medical History (units (unknown) date) (Reviewed 12/17/22 unknown) @ 18:41 by Deondre Murdock PA-C) (unknown) (no (unknown) (unknown) Medical decision (units (unknown) date) making narrative: unknown) (unknown) (no (unknown) (unknown) Medical records (units (unknown) date) reviewed: Yes unknown) (unknown) (no (unknown) (unknown) Medication (units (unk nown) date) Instructions unknown) Recorded Confirmed (unknown) (no (unknown) (unknown) Medication (units (unk nown) date) Instructions unknown) Recorded (unknown) (no (unknown) (unknown) Mild (units (unkno wn) date) unknown) (unknown) (no (unknown) (unknown) Mode of arrival: (units (unknown) date) EMS unknown) (unknown) (no (unknown) (unknown) Mother (units (unknown) date) Cancer unknown) (unknown) (no (unknown) (unknown) Mouth:?oral (units (un known) date) mucosae normal unknown) (unknown) (no (unknown) (unknown) Musculoskeletal (units (unknown) date) unknown) (unknown) (no (unknown) (unknown) Musculoskeletal: (units (unknown) date) Denies back pain, unknown) Denies muscle weakness, Denies neck pain, (unknown) (no (unknown) (unknown) Narrative (units (unkn own) date) unknown) (unknown) (no (unknown) (unknown) Neck (units (unkno wn) date) unknown) (unknown) (no (unknown) (unknown) Neck:?normal (units (u nknown) date) visual inspection unknown) and no lymphadenopathy noted (unknown) (no (unknown) (unknown) Neuro (units (unkno wn) date) unknown) (unknown) (no (unknown) (unknown) Neurologic (units (unk nown) date) unknown) (unknown) (no (unknown) (unknown) Neurologic: Denies (units (unknown) date) behavioral changes, unknown) Denies confusion, Denies dizziness, (unknown) (no (unknown) (unknown) No Action (units (unkn own) date) unknown) (unknown) (no (unknown) (unknown) No Known Drug (units ( unknown) date) Allergies Allergy unknown) Verified 09/16/22 17:38 (unknown) (no (unknown) (unknown) Nose:?external (units (unknown) date) nose normal unknown) (unknown) (no (unknown) (unknown) Ordered: (units (unkno wn) date) unknown) (unknown) (no (unknown) (unknown) Orders (units (unkno wn) date) unknown) (unknown) (no (unknown) (unknown) Oxygen Delivery (units (unknown) date) Method Room Air unknown) 12/17/22 14:41 (unknown) (no (unknown) (unknown) Oxygen Delivery (units (unknown) date) Method Room Air unknown) (unknown) (no (unknown) (unknown) Pacemaker (units (unkn own) date) unknown) (unknown) (no (unknown) (unknown) 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) (unknown) (no (unknown) (unknown) Patient (units (unkno wn) date) Disposition: Home unknown) (unknown) (no (unknown) (unknown) Patient History (units (unknown) date) unknown) (unknown) (no (unknown) (unknown) Patient denies (units (unknown) date) fever, chills, unknown) chest pain, shortness of breath, nausea, (unknown) (no (unknown) (unknown) Patient's home (units (unknown) date) health aide was unknown) also concerned about patient's leg swelling, (unknown) (no (unknown) (unknown) Patient: (units (unkno wn) date) [employer] Cheema L unknown) MR#: [id number] (unknown) (no (unknown) (unknown) Prescriptions: (units (unknown) date) unknown) (unknown) (no (unknown) (unknown) Previous Rx's (units ( unknown) date) unknown) (unknown) (no (unknown) (unknown) Psychiatric (units (un known) date) unknown) (unknown) (no (unknown) (unknown) Psychiatric: Denies (units (unknown) date) anxiety, Denies unknown) behavioral changes, Denies confusion, Denies (unknown) (no (unknown) (unknown) Pulse Oximetry 93 (units (unknown) date) 12/17/22 14:41 unknown) (unknown) (no (unknown) (unknown) Pulse Oximetry 93 (units (unknown) date) unknown) (unknown) (no (unknown) (unknown) Pulse Rate 74 (units ( unknown) date) 12/17/22 14:41 unknown) (unknown) (no (unknown) (unknown) Pulse Rate 74 (units ( unknown) date) unknown) (unknown) (no (unknown) (unknown) Pulse Rate [Right (units (unknown) date) Dorsalis Pedis] 63 unknown) (unknown) (no (unknown) (unknown) ROS Unobtainable: (units (unknown) date) All systems unknown) reviewed + are unremarkable except as noted in HPI (unknown) (no (unknown) (unknown) Rate:?regular rate (units (unknown) date) unknown) (unknown) (no (unknown) (unknown) Referrals: (units (unk nown) date) unknown) (unknown) (no (unknown) (unknown) Related Data (units (u nknown) date) unknown) (unknown) (no (unknown) (unknown) Resp (units (unkno wn) date) unknown) (unknown) (no (unknown) (unknown) Respiratory Rate (units (unknown) date) 12/17/22 14:41 unknown) (unknown) (no (unknown) (unknown) Respiratory Rate (units (unknown) date) 22 unknown) (unknown) (no (unknown) (unknown) Respiratory (units (un known) date) unknown) (unknown) (no (unknown) (unknown) Respiratory: Denies (units (unknown) date) cough, Denies unknown) dyspnea, Denies dyspnea on exertion and Denies (unknown) (no (unknown) (unknown) Return to the ED (units (unknown) date) if you experience unknown) any chest pain, shortness of breath. (unknown) (no (unknown) (unknown) Review of Systems (units (unknown) date) unknown) (unknown) (no (unknown) (unknown) Rhythm:?regular (units (unknown) date) rhythm unknown) (unknown) (no (unknown) (unknown) Right leg appears (units (unknown) date) slightly more unknown) swollen than the left, which is baseline per (unknown) (no (unknown) (unknown) Vanessa Krishnamurthy DO (units (unknown) date) [Primary Care unknown) Provider] (unknown) (no (unknown) (unknown) Signed By: (units (unk nown) date) unknown) (unknown) (no (unknown) (unknown) Skin/Breast: (units (u nknown) date) Denies pruritus, unknown) Denies erythema, Denies rash and Denies wounds (unknown) (no (unknown) (unknown) Smoking Status: (units (unknown) date) Never smoker unknown) (unknown) (no (unknown) (unknown) Social History (units (unknown) date) (Reviewed 12/17/22 unknown) @ 18:41 by Deondre Murdock PA-C) (unknown) (no (unknown) (unknown) Source: patient (units (unknown) date) and EMS unknown) (unknown) (no (unknown) (unknown) 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, incomplete unknown) (unknown) (no (unknown) (unknown) Stand Alone Forms: (units (unknown) date) Patient Portal/API unknown) (unknown) (no (unknown) (unknown) Stated complaint: (units (unknown) date) Rt Leg Swelling unknown) (unknown) (no (unknown) (unknown) Substance Use (units ( unknown) date) Type: does not use unknown) (unknown) (no (unknown) (unknown) Surgical History (units (unknown) date) (Reviewed 12/17/22 unknown) @ 18:41 by Deondre Murdock PA-C) (unknown) (no (unknown) (unknown) Temperature 98.1 F (units (unknown) date) 12/17/22 14:41 unknown) (unknown) (no (unknown) (unknown) Temperature 98.1 F (units (unknown) date) unknown) (unknown) (no (unknown) (unknown) Throat:?posterior (units (unknown) date) oropharynx normal unknown) (unknown) (no (unknown) (unknown) Time Seen by (units (u nknown) date) Provider: 12/17/22 unknown) 14:35 (unknown) (no (unknown) (unknown) US periph venous (units (unknown) date) low extrem bi Stat unknown) (unknown) (no (unknown) (unknown) Vital Signs - 8 hr (units (unknown) date) unknown) (unknown) (no (unknown) (unknown) Vital Signs (units (un known) date) unknown) (unknown) (no (unknown) (unknown) Vital signs: (units (u nknown) date) unknown) (unknown) (no (unknown) (unknown) You were evaluated (units (unknown) date) in the ED today for unknown) leg swelling. Your ultrasound did not (unknown) (no (unknown) (unknown) administrative (units (unknown) date) purposes only. I unknown) did not have direct contact with this patient (unknown) (no (unknown) (unknown) aerosol inhaler (units (unknown) date) (ProAir HFA) unknown) (unknown) (no (unknown) (unknown) albuterol sulfate (units (unknown) date) 90 mcg/actuation 1 unknown) puff inhalation PRN PRN Wheezing 09/17/22 (unknown) (no (unknown) (unknown) albuterol sulfate (units (unknown) date) [ProAir HFA] 90 unknown) mcg/actuation HFA aerosol inhaler (unknown) (no (unknown) (unknown) amoxicillin 875 (units (unknown) date) mg-potassium 1 tab unknown) PO BID #8 tabs 09/23/22 (unknown) (no (unknown) (unknown) amoxicillin-pot (units (unknown) date) clavulanate 875-125 unknown) mg Tablet (unknown) (no (unknown) (unknown) and Denies (units (unk nown) date) orthopnea unknown) (unknown) (no (unknown) (unknown) and Denies urinary (units (unknown) date) urgency unknown) (unknown) (no (unknown) (unknown) and Denies (units (unk nown) date) weakness unknown) (unknown) (no (unknown) (unknown) and below (units (unkn own) date) unknown) (unknown) (no (unknown) (unknown) and safety. 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 ED unknown) return precautions were discussed with (unknown) (no (unknown) (unknown) atorvastatin 40 mg (units (unknown) date) tablet 40 mg PO unknown) DAILY 09/17/22 09/17/22 (unknown) (no (unknown) (unknown) atorvastatin 40 mg (units (unknown) date) tablet unknown) (unknown) (no (unknown) (unknown) carvedilol 25 mg (units (unknown) date) tablet (Coreg) 25 unknown) mg PO BID ##0 04/14/12 09/17/22 (unknown) (no (unknown) (unknown) carvedilol [Coreg] (units (unknown) date) 25 MG tablet unknown) (unknown) (no (unknown) (unknown) changes. Patient (units (unknown) date) has been stable unknown) throughout the ED stay. Social work was (unknown) (no (unknown) (unknown) clavulanate 125 mg (units (unknown) date) tablet unknown) (unknown) (no (unknown) (unknown) collapse down to (units (unknown) date) the floor. Patient unknown) did not hit his head. Patient denies any (unknown) (no (unknown) (unknown) continue regular (units (unknown) date) dressing changes unknown) and care. Social work was involved and they (unknown) (no (unknown) (unknown) depression, Denies (units (unknown) date) homicidal ideation unknown) and Denies suicidal ideation (unknown) (no (unknown) (unknown) diarrhea, Denies (units (unknown) date) nausea and Denies unknown) vomiting (unknown) (no (unknown) (unknown) discharge. Wound (units (unknown) date) appears to have unknown) been well taken care of and recently dressed. (unknown) (no (unknown) (unknown) docusate sodium (units (unknown) date) 100 mg Capsule unknown) (unknown) (no (unknown) (unknown) docusate sodium (units (unknown) date) 100 mg capsule 100 unknown) mg PO BID #60 caps 09/23/22 (unknown) (no (unknown) (unknown) doing that at (units ( unknown) date) [facility] daily. unknown) Yesterday, patient states that he overload that (unknown) (no (unknown) (unknown) during this visit. (units (unknown) date) They were seen unknown) independently by the [facility]. (unknown) (no (unknown) (unknown) falls, Denies (units ( unknown) date) lethargy and Denies unknown) weakness (unknown) (no (unknown) (unknown) feels comfortable (units (unknown) date) navigating this. unknown) Patient states he has no new symptoms today. (unknown) (no (unknown) (unknown) gabapentin 600 mg (units (unknown) date) tablet 600 mg PO unknown) TID 09/17/22 09/17/22 (unknown) (no (unknown) (unknown) gabapentin 600 mg (units (unknown) date) tablet unknown) (unknown) (no (unknown) (unknown) have arranged for (units (unknown) date) more in-home help unknown) for you. BLS will transport you back home. (unknown) (no (unknown) (unknown) him to the ED (units ( unknown) date) today for further unknown) evaluation due to concerns of lack of mobility (unknown) (no (unknown) (unknown) his wheelchair (units (unknown) date) breaks had not been unknown) applied, he tried to transfer into the (unknown) (no (unknown) (unknown) home with some (units (unknown) date) extra home help unknown) that social work has arranged. BLS transport (unknown) (no (unknown) (unknown) hospitalized in (units (unknown) date) September 2022 for unknown) the decubitus ulcer, was discharged to [facility] (unknown) (no (unknown) (unknown) household members: (units (unknown) date) spouse unknown) (unknown) (no (unknown) (unknown) however patient (units (unknown) date) states that his unknown) baseline is that his right leg is more swollen (unknown) (no (unknown) (unknown) hyperlipidemia, (units (unknown) date) CAD, history of unknown) right leg DVT sent to the ED by his home health (unknown) (no (unknown) (unknown) indication for (units (unknown) date) further unknown) intervention at this time other than regular dressing (unknown) (no (unknown) (unknown) injuries from that (units (unknown) date) incident. Patient unknown) lives in a multilevel home, has chair (unknown) (no (unknown) (unknown) involved, patient (units (unknown) date) and patient's unknown) feel comfortable with patient returning (unknown) (no (unknown) (unknown) lidocaine 5 % (units ( unknown) date) Adhesive unknown) Patch,Medicated (unknown) (no (unknown) (unknown) lidocaine 5 % (units ( unknown) date) adhesive unknown) patch,medicated (unknown) (no (unknown) (unknown) lidocaine 5 % (units ( unknown) date) topical patch 1 ea unknown) topical DAILY #30 ea 09/23/22 (unknown) (no (unknown) (unknown) lidocaine 5 % (units (u nknown) date) topical patch 1 unknown) patch transdermal Q12H PRN Pain, 09/17/22 09/17/22 (unknown) (no (unknown) (unknown) lightheadedness, (units (unknown) date) Denies unknown) palpitations, Denies dyspnea, Denies dyspnea on exertion (unknown) (no (unknown) (unknown) lives that takes (units (unknown) date) him from the garage unknown) to the main level, and another chair lift (unknown) (no (unknown) (unknown) lower extremities (units (unknown) date) shows no DVTs. The unknown) ulcer seems to be well cared for, no (unknown) (no (unknown) (unknown) neck pain, Denies (units (unknown) date) sore throat and unknown) Denies throat swelling (unknown) (no (unknown) (unknown) nurse due to (units (u nknown) date) concerns of lack of unknown) patient mobility and safety. Given no new (unknown) (no (unknown) (unknown) nurse due to (units (u nknown) date) concerns of lack of unknown) patient mobility and safety. Patient was (unknown) (no (unknown) (unknown) of the sacral (units ( unknown) date) region, CHF, [place] unknown) stent x2, pacer on chronic Eliquis, hypertension, (unknown) (no (unknown) (unknown) out of SNF funds. (units (unknown) date) Patient was set up unknown) with a home health aide at home, who sent (unknown) (no (unknown) (unknown) patient's (units (unkn own) date) emergency unknown) department visit. This chart is signed by myself for (unknown) (no (unknown) (unknown) patient. Patient (units (unknown) date) verbalized unknown) understanding. (unknown) (no (unknown) (unknown) patient. (units (unkno wn) date) unknown) (unknown) (no (unknown) (unknown) says he can (units (un known) date) transfer from the unknown) bed to the wheelchair successfully and has been (unknown) (no (unknown) (unknown) show any DVTs. (units (unknown) date) Your back ulcers unknown) seems to be well cared for and healing. Please (unknown) (no (unknown) (unknown) symptoms, will (units (unknown) date) rule out DVT due to unknown) history of DVTs. Ultrasound Doppler of the (unknown) (no (unknown) (unknown) than the left and (units (unknown) date) he has no new leg unknown) pain. (unknown) (no (unknown) (unknown) the take some from (units (unknown) date) the main level up unknown) to the 2nd floor where his bed is. Patient (unknown) (no (unknown) (unknown) vomiting, (units (unkn own) date) abdominal pain, unknown) dysuria, lightheadedness, dizziness, syncope. (unknown) (no (unknown) (unknown) wheelchair bound (units (unknown) date) unknown) (unknown) (no (unknown) (unknown) wheelchair, which (units (unknown) date) sent the wheelchair unknown) rolling away from him, causing him to (unknown) (no (unknown) (unknown) wheezing (units (unkno wn) date) unknown) (unknown) (no (unknown) (unknown) which is a SNF. (units (unknown) date) Patient was unknown) discharged from [facility] back home due to running Social History date description facility 2022-12-17 00:00 Never smoked tobacco ([facility] Vital Signs date measurement value units 2022-09-23 00:00 BP_diastolic 54 mmHg 2022-09-23 00:00 BP_systolic 90 mmHg 2022-09-23 00:00 heart_rate 66 /min 2022-09-23 00:00 o2_saturation 93 % 2022-09-23 00:00 respiration_rate 20 /min 2022-09-23 00:00 temperature_metric 36.28 C 2022-09-23 00:00 temperature_standard 97.3 F 2022-09-23 00:00 weight_metric 140 kg 2022-09-23 00:00 weight_standard 308.65 lb 2022-12-17 00:00 BMI 44.9 kg/m2 2022-12-17 00:00 BP_diastolic 73 mmHg 2022-12-17 00:00 BP_systolic 153 mmHg 2022-12-17 00:00 heart_rate 67 /min 2022-12-17 00:00 height_metric 177.8 cm 2022-12-17 00:00 height_standard 70 in 2022-12-17 00:00 o2_saturation 97 % 2022-12-17 00:00 respiration_rate 22 /min 2022-12-17 00:00 temperature_metric 36.72 C 2022-12-17 00:00 temperature_standard 98.1 F 2022-12-17 00:00 weight_metric 141.97 kg 2022-12-17 00:00 weight_standard 312.99 lb
--- NOTE | 2022-12-22 12:19 | ED Physician Documentation ---
History of Present Illness - Stated complaint Stated Complaint: MALE - Chief complaint Chief Complaint: General - History obtained from History obtained from: Patient, EMS - History of Present Illness Timing: Today Pain level max: 0 Pain level now: 0 - Additonal information Additional information: Patient is a 82-year-old male brought in by EMS. Has a chronic indwelling Hull catheter. His noted that the urine was cloudy today so sent him in for a possible UTI. Patient has no fevers or abdominal pain. Nothing makes it better or worse. No nausea or vomiting. No altered mental status. Review of Systems Constitutional: denies: Fever, Chills Skin: denies: Rash Musculoskeletal: denies: Neck pain, Back pain Neurologic: denies: Headache PD PAST MEDICAL HISTORY - Past Medical History Past Medical History: Yes Cardiovascular: Congestive heart failure, Hypertension, High cholesterol, [place] ry artery disease, [place] Respiratory: None Endocrine/Autoimmune: None GI: GERD : Retention, Indwelling catheter HEENT: Chronic hearing loss, Dental implants Psych: None Musculoskeletal: Fatigue, Chronic back pain Derm: None - Past Surgical History Past Surgical History: Yes General: Colonoscopy, Other Ortho: Knee replacement, Spine surgery, Other Cardiovascular: Coronary stent, Pacemaker, Angioplasty HEENT: Cataracts - Present Medications Home Medications: Ambulatory Orders Medication Instructions Recorded Confirmed Carvedilol 25 mg PO BID 08/04/15 09/04/22 Gabapentin [Neurontin] 600 mg PO TID #30 06/28/17 09/04/22 Acetaminophen 1,000 mg PO TID MDD NTE 3000mg in 12/02/17 09/04/22 24 hours Atorvastatin Calcium 40 mg PO DAILY 12/02/17 09/04/22 C,E,Zinc,Copper 11/Syule1m/Lut 1 cap PO DAILY 12/02/17 09/04/22 [Ocuvite Adult 50 Plus Softgel] Multivitamin [Multiple Vitamins] 1 tab PO DAILY 12/02/17 09/04/22 Apixaban [Eliquis] 1 tab PO BID 09/04/22 09/04/22 Cholecalciferol [Vitamin D3] 1 tab PO DAILY 09/04/22 09/04/22 Furosemide [Lasix] 1 tab PO DAILY 09/04/22 09/04/22 Lidocaine Patch 5% [Lidoderm Patch] 1 patch TOP DAILY PRN 09/04/22 09/04/22 Amox/Clav 875/125 [Augmentin] 1 each PO Q12H #20 tablet 09/13/22 Furosemide [Lasix] 40 mg PO DAILY #40 tablet 09/14/22 Cefpodoxime Proxetil [Vantin] 100 mg PO Q12H #14 tablet 12/22/22 - Allergies Allergies/Adverse Reactions: Allergies Allergy/AdvReac Type Severity Reaction Status Date / Time No Known Drug Allergies Allergy Verified 12/22/22 12:07 - Social History Does the pt smoke?: No Smoking Status: Never smoker Does the pt drink ETOH?: No Does the pt have substance abuse?: No - Immunizations Immunizations are current?: No - POLST Patient has POLST: Yes POLST Status: Full Code PD ED PE NORMAL - Vitals Vital signs reviewed: Yes - General General: Alert and oriented X 3, No acute distress, Other (Morbidly obese male) - HEENT HEENT: PERRL, Moist mucous membranes, Pharynx benign - Neck Neck: Supple, no meningeal sign - Cardiac Cardiac: RRR, Strong equal pulses - Respiratory Respiratory: No respiratory distress, Clear bilaterally - Abdomen Abdomen: Soft, Non distended, Other (mild TTP surprapubic.) - Derm Derm: Warm and dry - Extremities Extremities: Other (1+ bilateral lower extremity pitting edema. Sacral pressure wound is bandaged. No signs of cellulitis.) - Neuro Neuro: Alert and oriented X 3 Results - Vitals Vitals: Vital Signs - 24 hr 12/22/22 12:02 Temperature 37.0 C Heart Rate 71 Respiratory 20 Rate Blood Pressure 105/76 O2 Saturation 88 L Oxygen O2 Source Room air - Labs Labs: Laboratory Tests 12/22/22 12/22/22 12/22/22 12:16 12:16 12:35 WBC 9.4 RBC 4.66 L Hgb 12.1 L Hct 41.0 L MCV 88.0 MCH 26.0 L MCHC 29.5 L RDW 19.3 H Plt Count 214 MPV 9.4 Neut # (Auto) 5.3 Lymph # (Auto) 2.7 [place] # (Auto) 0.9 Eos # (Auto) 0.5 Baso # (Auto) 0.0 Absolute Nucleated RBC 0.00 Nucleated RBC % 0.0 Sodium 141 Potassium 4.0 Chloride 104 Carbon Dioxide 30 Anion Gap 7.0 BUN 22 H Creatinine 0.9 Estimated GFR (MDRD) 81 L Glucose 131 H Calcium 8.5 Urine Color YELLOW Urine Clarity SL. CLOUDY Urine pH 8.5 H Ur Specific [place] 1.010 Urine Protein 30 H Urine Glucose (UA) NEGATIVE Urine Ketones NEGATIVE Urine Occult Blood SMALL H Urine Nitrite POSITIVE H Urine Bilirubin NEGATIVE Urine Urobilinogen 1 (NORMAL) Ur Leukocyte Esterase LARGE H Urine RBC 6-10 H Urine WBC 11-25 H Ur Squamous Epith Cells RARE Squamous Urine Bacteria Moderate H Urine Mucus Moderate Strands Ur Microscopic Review INDICATED Urine Culture Comments INDICATED PD Medical Decision Making - ED course Complexity details: reviewed results, re-evaluated patient, considered differential, d/w patient ED course: 82-year-old male with potential catheter colonization versus UTI, given suprapu bic tenderness, we will treat. Patient is well-appearing, nontoxic. Afebrile. Given IM Rocephin. Will place on oral antibiotics for home. Patient counseled regarding signs and symptoms for which I believe and urgent re-evaluation would be necessary. Patient with good understanding of and agreement to plan and is comfortable going home at this time This document was made in part using voice recognition software. While efforts are made to proofread this document, sound alike and grammatical errors may occur. No significant findings on CBC or chemistry. His oxygenation level was 93% on room air at the time of discharge with EMS. Departure - Departure Disposition: 01 Home, Self Care Clinical Impression: UTI (urinary tract infection) due to urinary indwelling catheter Qualifiers: Indwelling urinary catheter type: indwelling urethral catheter Encounter type: initial encounter Qualified Code(s): T83.511A - Infection and inflammatory reaction due to indwelling urethral catheter, initial encounter Condition: Good Instructions: ED UTI Cystitis Male Follow-Up: your,doctor in 1 week [Other] Prescriptions: Cefpodoxime Proxetil [Vantin] 100 mg PO Q12H #14 tablet Comments: Your prescription was sent to [facility] in [place]. Please take all antibiotics until gone. Please follow-up with your doctor for further care. Please return if you worsen. Please note that you can have colonization of your Hull catheter with bacteria rather than a true infection, if your urine culture does not confirm the infection, you should stop the antibiotic. Discharge Date/Time: 12/22/22 14:24
[2022-12-22 12:22] LABS: BASOPHILS % (AUTO) 0.3 %; EOSINOPHILS # (AUTO) 0.5 10^3/uL (0.0-0.7); EOSINOPHILS % (AUTO) 4.8 %; HGB - HEMOGLOBIN 12.1 g/dL (14.0-18.0); LYMPHOCYTES # (AUTO) 2.7 10^3/uL (1.5-3.5); LYMPHOCYTES % (AUTO) 28.7 %; MEAN CORPUSCULAR HGB CONC 29.5 g/dL (32.0-36.0); MEAN PLATELET VOLUME 9.4 fL (7.4-11.4); MONOCYTES # (AUTO) 0.9 10^3/uL (0.0-1.0); MONOCYTES % (AUTO) 9.3 %; NEUTROPHILS # (AUTO) 5.3 10^3/uL (1.5-6.6); NEUTROPHILS % (AUTO) 56.6 %; PLT - PLATELET COUNT 214 10^3/uL (130-450); RED BLOOD COUNT 4.66 10^6/uL (4.70-6.10); RED CELL DISTRIBUTION WIDTH 19.3 % (12.0-15.0); WHITE BLOOD COUNT 9.4 x10^3/uL (4.8-10.8)
[2022-12-22 12:30] LABS: CALCIUM 8.5 mg/dL (8.5-10.3); CREATININE 0.9 mg/dL (0.6-1.2)
[2022-12-22 13:15] LABS: BILIRUBIN,URINE NEGATIVE (NEGATIVE); GLUCOSE, URINE (UA) NEGATIVE (NEGATIVE); KETONES,URINE (UA) NEGATIVE (NEGATIVE); LEUKOCYTE ESTERASE, URINE LARGE (NEGATIVE); NITRITE,URINE POSITIVE (NEGATIVE); OCCULT BLOOD,URINE SMALL (NEGATIVE); PH,URINE 8.5 PH (5.0-7.5); PROTEIN,URINE 30 mg/dL (NEGATIVE); UROBILINOGEN,URINE 1 (NORMAL) E.U./dL (NORMAL)
[2022-12-22 13:18] LABS: CLARITY,URINE SL. CLOUDY (CLEAR)
[2022-12-22 13:26] LABS: BACTERIA,URINE Moderate /HPF (None Seen); MUCUS,URINE Moderate Strands; SQUAMOUS EPITHELIAL CELL,UR RARE Squamous (<= Few)
[2022-12-22] MEDS ORDERED: cefTRIAXone 1 GM VIAL IM STA (13:38)
[2022-12-22] MEDS ORDERED: LIDOCAINE 1% 2 ML VIAL MC ONE (13:38)
== END 2022-12-22 14:24 | disposition home or self-care (01) ==
LOC: EDUNIT# → ED 11:56
DX: T83.511A Infection and inflammatory reaction due to indwelling urethral catheter, initial encounter (principal); N31.9 Neuromuscular dysfunction of bladder, unspecified; E66.01 Morbid (severe) obesity due to excess calories; Z68.42 Body mass index [BMI] 45.0-49.9, adult; Z74.01 Bed confinement status
CPT/HCPCS: 36415; 80048; 81001; 81003; 85025; 87077; 87086; 87181; 96372; 99283

== ENCOUNTER 2022-12-22 14:25 | Outpatient (CLI) | payer MEDICARE, OTHER | END 2022-12-22 14:26 | disposition home or self-care (01) | LOC: EMS 14:25 | PROVIDERS: ATTEND Emergency Medicine | DX: E66.01 Morbid (severe) obesity due to excess calories (principal); N31.9 Neuromuscular dysfunction of bladder, unspecified; Z74.01 Bed confinement status | CPT/HCPCS: A0425; A0428 ==

== ENCOUNTER 2022-12-25 04:07 | Outpatient (CLI) | payer MEDICARE, OTHER | END 2022-12-25 23:59 | disposition critical access hospital (66) | LOC: EMS 04:07 | DX: R06.02 Shortness of breath (principal); R05.9 Cough, unspecified; Z74.01 Bed confinement status | CPT/HCPCS: A0425; A0427 ==

== ENCOUNTER 2022-12-25 04:28 | Emergency (ER) | payer MEDICARE, OTHER ==
[2022-12-25] MEDS ORDERED: FUROSEMIDE 20 MG TABLET PO STA (04:42)
--- OUTSIDE RECORDS SUMMARY | 2022-12-25 04:43 | EXTERNAL MEDICAL SUMMARY RPT | Continuity of Care Document ---
:1940 Author Organization [place] Address [address] [place] [address] Phone Care Team Providers Name Role Phone Unavailable Unavailable Unavailable Vanessa Krishnamurthy Unavailable Unavailable Allergies and Intolerances date description facility type (no date) No Known Drug Allergies [facility] (unkn own) Encounters No information. Functional Status No information. Immunizations No information. Medications No information. Problems date description facility 2022-12-17 00:00 Swelling of lower extremity [facility] pital Procedures date description facility 2022-12-17 00:00 Ultrasound of peripheral veins of both [facility] extremities Results/Labs test date author facility value unit interpret ation Result panel 1 (unknown) (no (unknown) (unknown) (no value) (units (unk nown) date) unknown) (unknown) (no (unknown) (unknown) [id number] (units (unkno wn) date) unknown) (unknown) (no (unknown) (unknown) 12/17/22 (units (unkno wn) date) unknown) (unknown) (no (unknown) (unknown) [address] [place] [address] (units (unknown) date) unknown) (unknown) (no (unknown) (unknown) 7:48. (units (unkno wn) date) unknown) (unknown) (no (unknown) (unknown) Accession (units (unkn own) date) Number: unknown) [id number] (unknown) (no (unknown) (unknown) Age/Sex: 82 / M (units (unknown) date) Date of Service: unknown) (unknown) (no (unknown) (unknown) NURA Samson (units ( unknown) date) [id number] unknown) (unknown) (no (unknown) (unknown) Approved by: (units (u nknown) date) amita Carreon M.D. on 12/17/2022 at 17:08 (unknown) (no (unknown) (unknown) COMPARISON: (units (un known) date) [facility], unknown) US, US PERIPH VENOUS LOW EXTREM RT, 09/17/2022, (unknown) (no (unknown) (unknown) : 1940 (units (unknown) date) Acct:[id number] unknown) (unknown) (no (unknown) (unknown) Dictated by: (units (u nknown) date) Jonathan Aguilar, unknownKareem Dominguez on 12/17/2022 at 17:07 (unknown) (no (unknown) (unknown) FINDINGS: (units (unkn own) date) unknown) (unknown) (no (unknown) (unknown) IMPRESSION: (units (un known) date) unknown) (unknown) (no (unknown) (unknown) INDICATIONS: leg (units (unknown) date) swelling unknown) (unknown) (no (unknown) (unknown) [facility] (units (unknown) date) unknown) (unknown) (no (unknown) [...] (unknown) Patient: (units (unkno wn) date) [employer]ani Sun[employer] L unknown) MR#: [id number] (unknown) (no (unknown) [...] ligament to the popliteal fossa. Result panel 2 (unknown) (no (unknown) (unknown) (no value) (units (unk nown) date) unknown) (unknown) (no (unknown) (unknown) 09/17/22 (units (unkno wn) date) unknown) (unknown) (no (unknown) (unknown) [id number] (units (unkno wn) date) unknown) (unknown) (no [...] (unknown) Chronic (units (unkno wn) date) indwelling [place] unknown) catheter (unknown) (no (unknown) (unknown) Congestive heart (units (unknown) date) failure unknown) (unknown) (no (unknown) (unknown) Consult to DIRECTIONAL DRILL OPERATOR - (units (unknown) date) Roofer unknown) Stat (unknown) (no (unknown) (unknown) Coronary artery (units (unknown) date) disease unknown) (unknown) (no (unknown) (unknown) Course (units (unkno wn) date) unknown) (unknown) (no (unknown) (unknown) : 1940 (units (unknown) date) Acct:[id number] unknown) (unknown) (no (unknown) (unknown) Date of Service: (units (unknown) date) 12/17/22 unknown) (unknown) (no (unknown) (unknown) Departure (units (unkn own) date) unknown) (unknown) (no (unknown) (unknown) Discharge Plan (units (unknown) date) unknown) (unknown) (no (unknown) (unknown) ED Orders (units (unkn own) date) unknown) (unknown) (no (unknown) (unknown) ER Physician: (units ( unknown) date) Deondre Murdock P.A-C unknown) (unknown) (no (unknown) (unknown) Eliquis [...] unknown) (unknown) (no (unknown) (unknown) 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) [...] on of bladder (unknown) (no (unknown) (unknown) [facility] (units (unknown) date) [address] unknown) [place] [address] (unknown) (no (unknown) (unknown) Medical History (units (unknown) date) (Reviewed 09/23/22 unknown) @ 11:22 by BRANDAN Montemayor) (unknown) (no (unknown) (unknown) Medication (units [...] (unknown) Patient: (units (unkno wn) date) [employer]ani Sunshine L unknown) MR#: [id number] (unknown) (no (unknown) [...] Q12H PRN Pain, 09/17/22 09/17/22 Result panel 3 (unknown) (no (unknown) (unknown) (no value) (units (unk nown) date) unknown) (unknown) (no (unknown) (unknown) 09/17/22 (units (unkno wn) date) unknown) (unknown) (no (unknown) (unknown) [id number] (units (unkno wn) date) unknown) (unknown) (no [...] (unknown) (unknown) Blood Pressure (units (unknown) date) 131 unknown) (unknown) (no (unknown) (unknown) Chief complaint: (units (unknown) date) Extremity unknown) Problem,Nontraumat ic (unknown) (no (unknown) (unknown) Chronic (units (unkno wn) date) anticoagulation unknown) (unknown) (no (unknown) (unknown) Chronic (units (unkno wn) date) indwelling [place] unknown) catheter (unknown) (no (unknown) (unknown) Congestive heart (units (unknown) date) failure unknown) (unknown) (no (unknown) (unknown) Consult to DIRECTIONAL DRILL OPERATOR - (units (unknown) date) Roofer unknown) Stat (unknown) (no (unknown) (unknown) Coronary artery (units (unknown) date) disease unknown) (unknown) (no (unknown) (unknown) Course (units (unkno wn) date) unknown) (unknown) (no (unknown) (unknown) : 1940 (units (unknown) date) Acct:[id number] unknown) (unknown) (no (unknown) (unknown) Date of Service: (units (unknown) date) 12/17/22 unknown) (unknown) (no (unknown) (unknown) Departure (units (unkn own) date) unknown) (unknown) (no (unknown) (unknown) Discharge Plan (units (unknown) date) unknown) (unknown) (no (unknown) (unknown) ED Orders (units (unkn own) date) unknown) (unknown) (no (unknown) (unknown) ER Physician: (units ( unknown) date) Deondre MurdockAMiller unknown) (unknown) (no (unknown) (unknown) Eliquis 2.5 mg (units (unknown) date) tablet unknown) (unknown) (no (unknown) (unknown) Emergency Report (units (unknown) date) unknown) (unknown) (no (unknown) (unknown) Exam (units (unkno wn) date) unknown) (unknown) (no (unknown) (unknown) Family History (units (unknown) date) (Reviewed 09/23/22 unknown) @ 11:22 by Izabella Serrano [facility]) (unknown) (no (unknown) (unknown) Father (units (unknown) date) Congestive heart unknown) failure (unknown) (no (unknown) (unknown) General (units (unkno wn) date) unknown) (unknown) (no (unknown) (unknown) HPI - Extremity (units (unknown) date) Problem unknown) (unknown) (no (unknown) (unknown) HPI Narrative: (units (unknown) date) unknown) (unknown) (no (unknown) (unknown) 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) [...] on of bladder (unknown) (no (unknown) (unknown) [facility] (units (unknown) date) [address]) [place] [address] (unknown) (no (unknown) (unknown) Medical History (units (unknown) date) (Reviewed 09/23/22 unknown) @ 11:22 by BRANDAN Montemayor) (unknown) (no (unknown) (unknown) Medication (units [...] (unknown) Patient: (units (unkno wn) date) [employer]ani Sunshine unknown) MR#: [id number] (unknown) (no (unknown) (unknown) [...] Q12H PRN Pain, 09/17/22 09/17/22 Result panel 4 (unknown) (no (unknown) (unknown) (no value) (units (unk nown) date) unknown) (unknown) (no (unknown) (unknown) 09/17/22 (units (unkno wn) date) unknown) (unknown) (no (unknown) (unknown) [id number] (units (unkno wn) date) unknown) (unknown) (no [...] (unknown) Chronic (units (unkno wn) date) indwelling [place] unknown) catheter (unknown) (no (unknown) (unknown) Congestive heart (units (unknown) date) failure unknown) (unknown) (no (unknown) (unknown) Consult to [facility] - (units (unknown) date) Roofer unknown) Stat (unknown) (no (unknown) (unknown) Coronary artery (units (unknown) date) disease unknown) (unknown) (no (unknown) (unknown) Course (units (unkno wn) date) unknown) (unknown) (no (unknown) (unknown) : 1940 (units (unknown) date) Acct:[id number] unknown) (unknown) (no (unknown) (unknown) Date of Service: (units (unknown) date) 12/17/22 unknown) (unknown) (no (unknown) (unknown) Departure (units (unkn own) date) unknown) (unknown) (no (unknown) (unknown) Discharge Plan (units (unknown) date) unknown) (unknown) (no (unknown) (unknown) ED Orders (units (unkn own) date) unknown) (unknown) (no (unknown) (unknown) ER Physician: (units ( unknown) date) Deondre Murdock P.A-C unknown) (unknown) (no (unknown) (unknown) Eliquis 2.5 mg (units (unknown) date) tablet unknown) (unknown) (no (unknown) (unknown) Emergency Report (units (unknown) date) unknown) (unknown) (no (unknown) (unknown) Exam (units (unkno wn) date) unknown) (unknown) (no (unknown) (unknown) Family History (units (unknown) date) (Reviewed 09/23/22 unknown) @ 11:22 by Izabella Serrano [facility]) (unknown) (no (unknown) (unknown) Father (units (unknown) date) Congestive heart unknown) failure (unknown) (no (unknown) (unknown) General (units (unkno wn) date) unknown) (unknown) (no (unknown) (unknown) HPI - Extremity (units (unknown) date) Problem unknown) (unknown) (no (unknown) (unknown) HPI Narrative: (units (unknown) date) unknown) (unknown) (no (unknown) (unknown) 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) [...] on of bladder (unknown) (no (unknown) (unknown) [facility] (units (unknown) date) [address] [place] [address] Street unknown) [place] [address] (unknown) (no (unknown) (unknown) Medical History (units (unknown) date) (Reviewed 09/23/22 unknown) @ 11:22 by BRANDAN Montemayor) (unknown) (no (unknown) (unknown) Medication (units [...] (unknown) Patient: (units (unkno wn) date) [employer]ani Sunshine L unknown) MR#: [id number] (unknown) (no (unknown) [...] Q12H PRN Pain, 09/17/22 09/17/22 Result panel 5 (unknown) (no (unknown) (unknown) (no value) (units (unk nown) date) unknown) (unknown) (no (unknown) (unknown) 09/17/22 (units (unkno wn) date) unknown) (unknown) (no (unknown) (unknown) [id number] (units (unkno wn) date) unknown) (unknown) (no [...] (unknown) Chronic (units (unkno wn) date) indwelling [place] unknown) catheter (unknown) (no (unknown) (unknown) Congestive heart (units (unknown) date) failure unknown) (unknown) (no (unknown) (unknown) Consult to [facility] - (units (unknown) date) Roofer unknown) Stat (unknown) (no (unknown) (unknown) Coronary artery (units (unknown) date) disease unknown) (unknown) (no (unknown) (unknown) Course (units (unkno wn) date) unknown) (unknown) (no (unknown) (unknown) : 1940 (units (unknown) date) Acct:[id number] unknown) (unknown) (no (unknown) (unknown) Date of Service: (units (unknown) date) 12/17/22 unknown) (unknown) (no (unknown) (unknown) Departure (units (unkn own) date) unknown) (unknown) (no (unknown) (unknown) Discharge Plan (units (unknown) date) unknown) (unknown) (no (unknown) (unknown) ED Orders (units (unkn own) date) unknown) (unknown) (no (unknown) (unknown) ER Physician: (units ( unknown) date) Deondre MurdockAMiller unknown) (unknown) (no (unknown) (unknown) Eliquis 2.5 [...] unknown) (unknown) (no (unknown) (unknown) 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) [...] on of bladder (unknown) (no (unknown) (unknown) [facility] (units (unknown) date) [address] unknown) [place] [address] (unknown) (no (unknown) (unknown) MDM - Extremity (units (unknown) date) (Nontraumatic) unknown) (unknown) (no (unknown) (unknown) MDM Narrative (units ( unknown) date) unknown) (unknown) (no (unknown) (unknown) Medical History (units (unknown) date) (Reviewed 09/23/22 unknown) @ 11:22 by BRANDAN Montemayor) (unknown) (no (unknown) (unknown) Medical decision [...] (unknown) Patient: (units (unkno wn) date) [employer]ani Sunshine unknown) MR#: [id number] (unknown) (no (unknown) (unknown) [...] that at (units ( unknown) date) [facility] daily. unknown) Yesterday, patient states that he [...] unknown) the decubitus ulcer, was discharged to [facility] (unknown) (no (unknown) (unknown) household (units (unkn [...] that incident. unknown) Patient lives in a [facility] home, has chair (unknown) (no (unknown) [...] sacral (units ( unknown) date) region, CHF, [place] unknown) stent x2, pacer on chronic Eliquis, [...] (unknown) date) Patient was unknown) discharged from [facility] back home due to running Result panel 6 (unknown) (no (unknown) (unknown) (no value) (units (unk nown) date) unknown) (unknown) (no (unknown) (unknown) 09/17/22 (units (unkno wn) date) unknown) (unknown) (no (unknown) (unknown) [id number] (units (unkno wn) date) unknown) (unknown) (no [...] (unknown) (unknown) Blood Pressure (units (unknown) date) 131 unknown) (unknown) (no (unknown) (unknown) Chief complaint: (units (unknown) date) Extremity unknown) Problem,Nontraumat ic (unknown) (no (unknown) (unknown) Chronic (units (unkno wn) date) anticoagulation unknown) (unknown) (no (unknown) (unknown) Chronic (units (unkno wn) date) indwelling [place] unknown) catheter (unknown) (no (unknown) (unknown) Congestive heart (units (unknown) date) failure unknown) (unknown) (no (unknown) (unknown) Consult to [facility] - (units (unknown) date) Roofer unknown) Stat (unknown) (no (unknown) (unknown) Coronary artery (units (unknown) date) disease unknown) (unknown) (no (unknown) (unknown) Course (units (unkno wn) date) unknown) (unknown) (no (unknown) (unknown) : 1940 (units (unknown) date) Acct:[id number] unknown) (unknown) (no (unknown) (unknown) Date of [...] date) (Reviewed 09/23/22 unknown) @ 11:22 [facility] (unknown) (no (unknown) (unknown) Father (units (unknown) date) Congestive heart unknown) failure (unknown) (no (unknown) (unknown) General (units (unkno wn) date) unknown) (unknown) (no (unknown) (unknown) HPI - Extremity (units (unknown) date) Problem unknown) (unknown) (no (unknown) (unknown) HPI Narrative: (units (unknown) date) unknown) (unknown) (no (unknown) (unknown) 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) [...] on of bladder (unknown) (no (unknown) (unknown) [facility] (units (unknown) date) [address] unknown) [place] [address] (unknown) (no (unknown) (unknown) MDM - Extremity (units (unknown) date) (Nontraumatic) unknown) (unknown) (no (unknown) (unknown) MDM Narrative (units ( unknown) date) unknown) (unknown) (no (unknown) (unknown) Medical History (units (unknown) date) (Reviewed 09/23/22 unknown) @ 11:22 [facility] (unknown) (no (unknown) (unknown) Medical decision (units [...] (unknown) Patient: (units (unkno wn) date) [employer]ani Sunshine L unknown) MR#: [id number] (unknown) (no (unknown) [...] 1 tab unknown) PO BID #[id number] tabs 01/23/23 (unknown) (no (unknown) (unknown) amoxicillin-pot (units (unknown) [...] unknown) the decubitus ulcer, was discharged to [facility] (unknown) (no (unknown) (unknown) household (units (unkn [...] sacral (units ( unknown) date) region, CHF, [place] unknown) stent x2, pacer on chronic Eliquis, [...] (unknown) date) Patient was unknown) discharged from [facility] back home due to running Result panel 7 (unknown) (no (unknown) (unknown) (no value) (units (unk nown) date) unknown) (unknown) (no (unknown) (unknown) 09/17/22 (units (unkno wn) date) unknown) (unknown) (no (unknown) (unknown) [id number] (units (unkno wn) date) unknown) (unknown) (no [...] (unknown) (unknown) Chronic indwelling (units (unknown) date) [place] catheter unknown) (unknown) (no (unknown) (unknown) Comments: [...] frequent (unknown) (no (unknown) (unknown) Consult to DIRECTIONAL DRILL OPERATOR - (units (unknown) date) Roofer unknown) Stat (unknown) (no (unknown) (unknown) Coronary artery (units (unknown) date) disease unknown) (unknown) (no (unknown) (unknown) Course (units (unkno wn) date) unknown) (unknown) (no (unknown) (unknown) : 1940 (units (unknown) date) Acct:[id number] unknown) (unknown) (no (unknown) (unknown) Date of [...] bruising (unknown) (no (unknown) (unknown) 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 unknown) Yesterday, patient states that he [...] unknown) the decubitus ulcer, was discharged to [facility] (unknown) (no (unknown) (unknown) household members: (units [...] sacral (units ( unknown) date) region, CHF, [place] unknown) stent x2, pacer on chronic Eliquis, [...] (unknown) date) Patient was unknown) discharged from [facility] back home due to running Result panel 8 (unknown) (no (unknown) (unknown) (no value) (units (unk nown) date) unknown) (unknown) (no (unknown) (unknown) 09/17/22 (units (unkno wn) date) unknown) (unknown) (no (unknown) (unknown) [id number] (units (unkno wn) date) unknown) (unknown) (no [...] (unknown) (unknown) Chronic indwelling (units (unknown) date) [place] catheter unknown) (unknown) (no (unknown) (unknown) Comments: [...] frequent (unknown) (no (unknown) (unknown) Consult to DIRECTIONAL DRILL OPERATOR - (units (unknown) date) Roofer unknown) Stat (unknown) (no (unknown) (unknown) Coronary artery (units (unknown) date) disease unknown) (unknown) (no (unknown) (unknown) Course (units (unkno wn) date) unknown) (unknown) (no (unknown) (unknown) : 1940 (units (unknown) date) Acct:[id number] unknown) (unknown) (no (unknown) (unknown) Date of [...] bruising (unknown) (no (unknown) (unknown) 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) [...] unknown) date) unknown) (unknown) (no (unknown) (unknown) Integumentary/[place] (units (unknown) date) sts unknown) (unknown) (no (unknown) (unknown) Intermittent (units (u nknown) date) self-catheterizatio unknown) n of bladder (unknown) (no (unknown) (unknown) [facility] (units (unknown) date) [address] unknown) [place] [address] (unknown) (no (unknown) (unknown) MDM - Extremity [...] (unknown) Patient: (units (unkno wn) date) [employer]ani Sunshine L unknown) MR#: [id number] (unknown) (no (unknown) [...] baseline per (unknown) (no (unknown) (unknown) Vanessa Krishnamurthy, (units [...] unknown) the decubitus ulcer, was discharged to [facility] (unknown) (no (unknown) (unknown) household members: (units [...] sacral (units ( unknown) date) region, CHF, [place] unknown) stent x2, pacer on chronic Eliquis, [...] (unknown) date) Patient was unknown) discharged from [facility] back home due to running Result panel 9 (unknown) (no (unknown) (unknown) (no value) (units (unk nown) date) unknown) (unknown) (no (unknown) (unknown) <Electronically (units (unknown) date) signed by Deondre head) Favian Murdock> (unknown) (no (unknown) (unknown) <Electronically (units (unknown) date) signed by Black unknown) Omaira Macedo> (unknown) (no (unknown) (unknown) <Electronically (units (unknown) date) signed by Black unknown) Hellen Castano> (unknown) (no (unknown) (unknown) <Deondre Murdock PA-C (units (unknown) date) - Last Filed: unknown) 12/17/22 18:50> (unknown) (no (unknown) (unknown) <Black Castano, (units (unknown) date) DO - Last Filed: unknown) 12/17/22 18:51> (unknown) (no (unknown) (unknown) <cosigner> (units (unk nown) date) unknown) (unknown) (no (unknown) (unknown) 09/17/22 (units (unkno wn) date) unknown) (unknown) (no (unknown) (unknown) [id number] (units (unkno wn) date) unknown) (unknown) (no (unknown) (unknown) 12/17/22 16:41 (units (unknown) date) unknown) (unknown) (no (unknown) (unknown) 12/17/22 17:14 (units (unknown) date) unknown) (unknown) (no (unknown) (unknown) 12/17/22 185 (units ( unknown) date) unknown) (unknown) (no [...] (unknown) (unknown) Chronic indwelling (units (unknown) date) [place] catheter unknown) (unknown) (no (unknown) (unknown) Clinical [...] frequent (unknown) (no (unknown) (unknown) Consult to DIRECTIONAL DRILL OPERATOR - (units (unknown) date) Roofer unknown) Stat (unknown) (no (unknown) (unknown) Coronary artery (units (unknown) date) disease unknown) (unknown) (no (unknown) (unknown) Cosign (units (unkno wn) date) unknown) (unknown) (no (unknown) (unknown) Course (units (unkno wn) date) unknown) (unknown) (no (unknown) (unknown) : 1940 (units (unknown) date) Acct:[id number] unknown) (unknown) (no (unknown) (unknown) Date of [...] bruising (unknown) (no (unknown) (unknown) 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 unknown) Yesterday, patient states that he [...] unknown) the decubitus ulcer, was discharged to [facility] (unknown) (no (unknown) (unknown) household members: (units [...] sacral (units ( unknown) date) region, CHF, [place] unknown) stent x2, pacer on chronic Eliquis, [...] Patient was unknown) discharged from [facility] due to running Social History date description facility 2022-12-17 [facility] date measurement value units 2022-12-17 00:00 BMI 44.9 kg/m2 2022-12-17 00:00 [...]
--- NOTE | 2022-12-25 04:44 | ED Physician Documentation ---
History of Present Illness - Stated complaint Stated Complaint: SOA - History obtained from History obtained from: Patient, EMS - Additonal information Additional information: 82yM, severely deconditioned, morbidly obese, with pacemaker and hx of "fluid on the lungs and around the heart" p/w soa worsening over the past few days with associated nonproductive cough. denies fever, uri symptoms, n/v cp. [facility] and given IV lasix but did not have a prescription on discharge. He states he has gained 18 lbs since that time in water weight and felt progressively soa since then. unable to see pcp thus far due to mobility issues. Review of Systems Constitutional: denies: Fever Nose: denies: Rhinorrhea / runny nose Throat: denies: Sore throat Cardiac: denies: Chest pain / pressure Respiratory: reports: Dyspnea, Cough PD PAST MEDICAL HISTORY - Past Medical History Cardiovascular: Congestive heart failure, Hypertension, High cholesterol, Coronary artery disease, [place] Respiratory: None Endocrine/Autoimmune: None GI: GERD : Retention, Indwelling catheter HEENT: Chronic hearing loss, Dental implants Psych: None Musculoskeletal: Fatigue, Chronic back pain Derm: None - Past Surgical History Past Surgical History: Yes General: Colonoscopy, Other Ortho: Knee replacement, Spine surgery, Other Cardiovascular: Coronary stent, Pacemaker, Angioplasty HEENT: Cataracts - Present Medications Home Medications: Ambulatory Orders Medication Instructions Recorded Confirmed Carvedilol 25 mg PO BID 08/04/15 09/04/22 Gabapentin [Neurontin] 600 mg PO TID #30 06/28/17 09/04/22 Acetaminophen 1,000 mg PO TID MDD NTE 3000mg in 12/02/17 09/04/22 24 hours Atorvastatin Calcium 40 mg PO DAILY 12/02/17 09/04/22 C,E,Zinc,Copper 11/Voyyk9k/Lut 1 cap PO DAILY 12/02/17 09/04/22 [Ocuvite Adult 50 Plus Softgel] Multivitamin [Multiple Vitamins] 1 tab PO DAILY 12/02/17 09/04/22 Apixaban [Eliquis] 1 tab PO BID 09/04/22 09/04/22 Cholecalciferol [Vitamin D3] 1 tab PO DAILY 09/04/22 09/04/22 Furosemide [Lasix] 1 tab PO DAILY 09/04/22 09/04/22 Lidocaine Patch 5% [Lidoderm Patch] 1 patch TOP DAILY PRN 09/04/22 09/04/22 Amox/Clav 875/125 [Augmentin] 1 each PO Q12H #20 tablet 09/13/22 Furosemide [Lasix] 40 mg PO DAILY #40 tablet 09/14/22 Cefpodoxime Proxetil [Vantin] 100 mg PO Q12H #14 tablet 12/22/22 Furosemide [Lasix] 20 mg PO DAILY #30 tablet 12/25/22 - Allergies Allergies/Adverse Reactions: Allergies Allergy/AdvReac Type Severity Reaction Status Date / Time No Known Drug Allergies Allergy Verified 12/22/22 12:07 - Social History Does the pt smoke?: No Smoking Status: Never smoker Does the pt drink ETOH?: No Does the pt have substance abuse?: No - Immunizations Immunizations are current?: No - POLST Patient has POLST: Yes POLST Status: Full Code PD ED PE NORMAL - Vitals Vital signs reviewed: Yes - General General: Alert and oriented X 3, No acute distress, Other (elderly, deconditioned, morbid obesity) - HEENT HEENT: Atraumatic, PERRL, EOMI - Neck Neck: Supple, no meningeal sign - Cardiac Cardiac: RRR - Respiratory Respiratory: Other (BL basilar crackles) - Abdomen Abdomen: Non tender, Non distended - Extremities Extremities: Other (2+ pitting edema BL LE) Results - Vitals Vitals: Vital Signs - 24 hr 12/25/22 12/25/22 04:39 04:47 Temperature 36.4 C L Heart Rate 75 61 Respiratory 30 H 19 Rate Blood Pressure 135/72 H 135/72 H O2 Saturation 90 L 90 L Oxygen O2 Source Room air PD Medical Decision Making - ED course ED course: 82yM p/w soa, leg swelling, pillow orthopnea, and 18 lb weight gain over past couple weeks after stopping the lasix he was taking in the hospital. patient refused IV and bloodwork but did consent to CXR. He is requesting we resume his lasix prescription. Lasix provided in the ED and rx sent to pharmacy. encouraged palliative care follow up as well as pcp. return precautions given. Departure - Departure Disposition: 01 Home, Self Care Clinical Impression: Shortness of breath, Edema Condition: Stable Instructions: ED Dyspnea Shortness of Breath Follow-Up: Katlyn Kerr ARNP [Provider Admit Priv/Credential] - Prescriptions: Furosemide [Lasix] 20 mg PO DAILY #30 tablet Comments: You were seen in the emergency department for shortness of breath and request for medication refill. Your chest xray indicated some fluid on the lungs consistent with chf. I went ahead and sent a prescription for Lasix to the [email or web address] pharmacy electronically. Please follow-up with your primary care provider. Return to the emergency department for new or worsening symptoms or other concerns.
[2022-12-25 06:03] VITALS: BP 132/66
--- NOTE | 2022-12-25 08:14 | XRAY Report ---
PROCEDURE: Chest 1 View X-Ray INDICATIONS: soa, hx chf TECHNIQUE: One view of the chest was acquired. COMPARISON: None. FINDINGS: Surgical changes and devices: None. Lungs and pleura: No pleural effusions or pneumothorax. Lungs are clear. Mediastinum: Mediastinal contours appear normal. Heart size is normal. Bones and chest wall: No suspicious bony lesions. Overlying soft tissues appear unremarkable. IMPRESSION: No acute cardiopulmonary process. Findings are concordant with preliminary interpretation provided by [facility]. Reviewed by: Monroe Anderson on 12/25/2022 8:13 AM PDT Approved by: Monroe Anderson on 12/25/2022 8:13 AM PDT Station ID: [id number]
== END 2022-12-25 06:08 | disposition home or self-care (01) ==
LOC: EDUNIT# → ED 04:28
DX: R60.0 Localized edema (principal); R06.02 Shortness of breath; I11.0 Hypertensive heart disease with heart failure; I50.9 Heart failure, unspecified; E78.00 Pure hypercholesterolemia, unspecified; I25.10 Atherosclerotic heart disease of native coronary artery without angina pectoris; E66.01 Morbid (severe) obesity due to excess calories; Z95.0 Presence of cardiac pacemaker; Z79.01 Long term (current) use of anticoagulants; Z79.899 Other long term (current) drug therapy; Z98.61 Coronary angioplasty status
CPT/HCPCS: 71045; 99283; 99284; A9270

== ENCOUNTER 2022-12-25 06:03 | Outpatient (CLI) | payer MEDICARE, OTHER | END 2022-12-25 23:59 | disposition home or self-care (01) | LOC: EMS 06:03 | PROVIDERS: ATTEND Emergency Medicine | DX: I50.9 Heart failure, unspecified (principal); E66.01 Morbid (severe) obesity due to excess calories; Z74.01 Bed confinement status | CPT/HCPCS: A0425; A0428 ==

== ENCOUNTER 2023-01-09 15:58 | Outpatient (CLI) | payer MEDICARE, OTHER | END 2023-01-09 23:59 | disposition EMS.NT | LOC: EMS 15:58 | DX: Z03.89 Encounter for observation for other suspected diseases and conditions ruled out (principal) ==

== ENCOUNTER 2023-01-15 10:28 | Outpatient (CLI) | payer MEDICARE, OTHER | END 2023-01-15 23:59 | disposition critical access hospital (66) | LOC: EMS 10:28 | DX: R39.89 Other symptoms and signs involving the genitourinary system (principal); R46.4 Slowness and poor responsiveness; R23.9 Unspecified skin changes | CPT/HCPCS: A0425; A0429 ==

== ENCOUNTER 2023-01-15 10:53 | Emergency (ER) | payer MEDICARE, OTHER ==
--- NOTE | 2023-01-15 11:07 | ED Physician Documentation ---
PD HPI DYSPNEA - Stated complaint Stated Complaint: MALE - Chief complaint Chief Complaint: Abd Pain - History obtained from History obtained from: Patient, Family, EMS (EMS reports his change his Schaeffer routinely last night because the prior one was clogged. Is working. Home health nurse this morning however thought it looked cloudy. He also had little edema in his legs and has been out of his diuretic for a few days. Out of albu terol as well, with wheeze.) - History of Present Illness Timing - onset: Today Timing - onset during: Rest Timing - details: Gradual onset, Still present Inciting event(s): No: Out of meds, URI Improved by: Rest, Sitting up Worsened by: Exertion, Laying flat, Coughing Associated symptoms: Wheezing. No: Fever, Cough, Hemoptysis, Chest pain / discomfort, Bilateral edema Recently seen: Clinic (seen by home health nurse tihs morning and noted urine was cloudy. Patient not feeling well. Urged to ER for eval uation of weak/ill/and urine cloudy.), Other (schaeffer was not working well last evening and changed out the schaeffer for new one. It is draining okay. He has general weakness this morning.) Review of Systems Constitutional: reports: Myalgias, Fatigue. denies: Fever, Chills Nose: denies: Rhinorrhea / runny nose, Congestion, Sinus pressure / pain Throat: denies: Sore throat Respiratory: reports: Dyspnea, Cough. denies: Wheezing GI: reports: Nausea. denies: Abdominal Pain, Vomiting, Diarrhea, Bloody / black stool PD PAST MEDICAL HISTORY - Past Medical History Cardiovascular: Congestive heart failure, Hypertension, High cholesterol, Coronary artery disease, [place] Respiratory: None Endocrine/Autoimmune: None GI: GERD : Retention, Indwelling catheter HEENT: Chronic hearing loss, Dental implants Psych: None Musculoskeletal: Fatigue, Chronic back pain Derm: None - Past Surgical History Past Surgical History: Yes General: Colonoscopy, Other Ortho: Knee replacement, Spine surgery, Other Cardiovascular: Coronary stent, Pacemaker, Angioplasty HEENT: Cataracts - Present Medications Home Medications: Ambulatory Orders Medication Instructions Recorded Confirmed Carvedilol 25 mg PO BID 08/04/15 09/04/22 Gabapentin [Neurontin] 600 mg PO TID #30 06/28/17 09/04/22 Acetaminophen 1,000 mg PO TID MDD NTE 3000mg in 12/02/17 09/04/22 24 hours Atorvastatin Calcium 40 mg PO DAILY 12/02/17 09/04/22 C,E,Zinc,Copper 11/Chgdq0q/Lut 1 cap PO DAILY 12/02/17 09/04/22 [Ocuvite Adult 50 Plus Softgel] Multivitamin [Multiple Vitamins] 1 tab PO DAILY 12/02/17 09/04/22 Apixaban [Eliquis] 1 tab PO BID 09/04/22 09/04/22 Cholecalciferol [Vitamin D3] 1 tab PO DAILY 09/04/22 09/04/22 Furosemide [Lasix] 1 tab PO DAILY 09/04/22 09/04/22 Lidocaine Patch 5% [Lidoderm Patch] 1 patch TOP DAILY PRN 09/04/22 09/04/22 Amox/Clav 875/125 [Augmentin] 1 each PO Q12H #20 tablet 09/13/22 Furosemide [Lasix] 40 mg PO DAILY #40 tablet 09/14/22 Cefpodoxime Proxetil [Vantin] 100 mg PO Q12H #14 tablet 12/22/22 Furosemide [Lasix] 20 mg PO DAILY #30 tablet 12/25/22 Albuterol Sulf [Ventolin Hfa 1 - 2 puffs INH Q4HR PRN #1 each 01/15/23 Inhaler] Doxycycline Hyclate 100 mg PO BID 7 Days #14 cap 01/15/23 Furosemide [Lasix] 40 mg PO DAILY #30 tablet 01/15/23 Mupirocin 2% Oint [Bactroban 2% 1 applic TOP TID #15 gm 01/15/23 Oint] - Allergies Allergies/Adverse Reactions: Allergies Allergy/AdvReac Type Severity Reaction Status Date / Time No Known Drug Allergies Allergy Verified 12/22/22 12:07 - Social History Does the pt smoke?: No Smoking Status: Never smoker Does the pt drink ETOH?: No Does the pt have substance abuse?: No - Immunizations Immunizations are current?: No - POLST Patient has POLST: Yes POLST Status: Full Code PD ED PE NORMAL - Vitals Vital signs reviewed: Yes - General General: No acute distress, Well developed/nourished - HEENT HEENT: Pharynx benign - Neck Neck: Supple, no meningeal sign, No adenopathy - Cardiac Cardiac: RRR, No murmur - Respiratory Respiratory: Clear bilaterally - Abdomen Abdomen: Normal bowel sounds, Soft, Non tender, Non distended - Male Male : Benefits 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 Can verify with bladder scanner to ensure emptying. the meatus with some purulence around the tip, with schaeffer appearing through. redness of skin with a small 1 cm sore/erosion left side of meatal opening. Purulence and I obtained culture. ) - Back Back: No CVA TTP, No spinal TTP - Derm Derm: Normal color, Warm and dry - Extremities Extremities: Normal ROM s pain, No calf tenderness / cord. No: No edema (has mild pitting edema both lower legs below knees. ) - Neuro Neuro: No motor deficit, Normal speech - Psych Psych: Other Results - Vitals Vitals: Vital Signs - 24 hr 01/15/23 01/15/23 01/15/23 11:00 11:39 11:44 Temperature 37.1 C Heart Rate 76 71 78 Respiratory 26 H 16 16 Rate Blood Pressure 121/95 H 121/66 O2 Saturation 92 97 01/15/23 01/15/23 01/15/23 13:04 15:39 17:13 Temperature Heart Rate 66 61 67 Respiratory 23 24 17 Rate Blood Pressure 123/94 H 128/92 H 146/97 H O2 Saturation 94 95 95 Oxygen O2 Source Room air - Labs Labs: Microbiology 01/15/23 11:06 Wound Culture - Preliminary Skin - Penile Laboratory Tests 01/15/23 01/15/23 11:26 11:26 WBC 8.0 RBC 5.06 Hgb 13.0 L Hct 43.2 MCV 85.4 MCH 25.7 L MCHC 30.1 L RDW 17.6 H Plt Count 239 MPV 9.2 Neut # (Auto) 4.7 Lymph # (Auto) 2.3 [place] # (Auto) 0.5 Eos # (Auto) 0.5 Baso # (Auto) 0.1 Absolute Nucleated RBC 0.00 Nucleated RBC % 0.0 Sodium 143 Potassium 3.9 Chloride 104 Carbon Dioxide 30 Anion Gap 9.0 BUN 22 H Creatinine 0.8 Estimated GFR (MDRD) 93 Glucose 171 H Calcium 8.5 Magnesium 2.2 Total Bilirubin 0.5 AST 19 ALT 13 Alkaline Phosphatase 94 Total Protein 6.8 Albumin 3.0 L Globulin 3.8 Albumin/Globulin Ratio 0.8 L Lipase 33 - Rads (name of study) chest xray Relevant Findings:: Prelim report reviewed, EMP independent interpretation of test (no nfiltrates nor PTX. some increased vaascularity. ), See rad report PD Medical Decision Making - ED course Complexity details: reviewed results (chest xray without infiltrates nor PTX. clnically could have some fluid retention since had run out of diuretic few days ago. ), considered differential (has some wheezing bu tnot much cough per se. His main problem list is needing renewal Rx Albuterol. some leg edema and is out Lasix past 3 days. Concern for infection with general malaise though not fever per se. ), d/w patient Departure - Departure Disposition: 01 Home, Self Care Clinical Impression: Infection of penis, Wheezing, Generalized edema due to fluid overload Condition: Stable Record reviewed to determine appropriate education?: Yes Prescriptions: Albuterol Sulf [Ventolin Hfa Inhaler] 1 - 2 puffs INH Q4HR PRN #1 each PRN Reason: Shortness Of Air/Wheezing Mupirocin 2% Oint [Bactroban 2% Oint] 1 applic TOP TID #15 gm Doxycycline Hyclate 100 mg PO BID 7 Days #14 cap Furosemide [Lasix] 40 mg PO DAILY #30 tablet Comments: The tip of the penis does look to have a skin infection with some purulence. We did do a culture of this. I would start doxycycline antibiotic twice daily for this pending the culture result. Will call if we need to amend the antibiotic choice based on it. Cleanse the area at the tip of the penis with just soap and water twice daily. Apply mupirocin antibiotic ointment to the area. I wrote prescriptions for your albuterol inhaler and Lasix medication in case you are unable to get the refills soon on your regular mechanism through your [facility]. I sent these prescriptions to your [facility] pharmacy as the [facility] pharmacy will be closing soon enough. Follow-up with your primary care. I presume home health will be visiting you regularly as they have been. Discharge Date/Time: 01/15/23 17:58
[2023-01-15] MEDS ORDERED: ALBUTEROL NEB 2.5 MG/3 ML INH STA (11:10)
[2023-01-15] MEDS ORDERED: MUPIROCIN 2% OINT 1 GM TOP STA (11:11)
[2023-01-15] MEDS ORDERED: FUROSEMIDE 40 MG/4 ML VIAL IVP STA (11:11)
--- OUTSIDE RECORDS SUMMARY | 2023-01-15 11:14 | EXTERNAL MEDICAL SUMMARY RPT | Continuity of Care Document ---
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 Name Role Phone Unavailable Unavailable Unavailable Vanessa Krishnamurthy Unavailable Unavailable Allergies and Intolerances date description facility type (no date) No Known Drug Allergies [facility] ( unknown) Problems date description facility 2022-12-17 00:00 Swelling of lower extremity [facility] Procedures date description facility 2022-12-17 00:00 Ultrasound of periph eral veins of both lower extremities [facility] Results/Labs test date author facility value unit interpretation Result panel 1 (unknown) (no date) (unknown) (unknown) (no value) (units unknown) (unknown) (unknown) (no date) (unknown) (unknown) [id number] (units unknown) (unknown) (unknown) (no date) (unknown) (unknown) 12/17/22 (units unknown) (unknown) (unknown) (no date) (unknown) (unknown) [address] [place] [address] (un its unknown) (unknown) (unknown) (no date) (unknown) (unknown) 7:48. (units unknown) (unknown) (unknown) (no date) (unknown) (unknown) Accession Numb er: [id number] (units unknown) (unknown) (unknown) (no date) (unknown) (unknown) Age/Sex: 82 / M Date of Service: (units unknown) (unknown) (unknown) (no date) (unknown) (unknown) NURA Samson [id number] (units unknown) (unknown) (unknown) (no date) (unknown) (unknown) Approved by: Nakul Aguilar M.D. on 12/17/2022 at 17:08 (units unknown) (unknown) (unknown) (no date) (unknown) (unknown) COMPARISON: Is [facility], US, US PERIPH VENOUS LOW EXTREM RT, 09/17/2022, (units unknown) (unknown) (unknown) (no date) (unknown) (unknown) : 2 Acct:[id number] (units unknown) (unknown) (unknown) (no date) (unknown) (unknown) Dictated by: Nakul Aguilar M.D. on 12/17/2022 at 17:07 (units unknown) (unknown) (unknown) (no date) (unknown) (unknown) FINDINGS: (units unknown) (unknown) (unknown) (no date) (unknown) (unknown) IMPRESSION: (units unknown) (unknown) (unknown) (no date) (unknown) (unknown) INDICATIONS: l eg swelling (units unknown) (unknown) (unknown) (no date) (unknown) (unknown) [facility] (uni ts unknown) (unknown) (unknown) (no date) (unknown) (unknown) Left: The comm on femoral, femoral and popliteal veins are normally compressible, (units unknown) (unknown) (unknown) (no date) (unknown) (unknown) Loc: ED (units unknown) (unknown) (unknown) (no date) (unknown) (unknown) Negative for d eep venous thrombosis. (units unknown) (unknown) (unknown) (no date) (unknown) (unknown) Ordering Provi avery: Deondre Murdock P.A-C (units unknown) (unknown) (unknown) (no date) (unknown) (unknown) PROCEDURE: US PERIPH VENOUS LOW EXTREM BI (units unknown) (unknown) (unknown) (no date) (unknown) (unknown) Patient: Armani Sunshine MR#: [id number] (units unknown) (unknown) (unknown) (no date) (unknown) (unknown) Procedure: US periph venous low extrem bi (units unknown) (unknown) (unknown) (no date) (unknown) (unknown) Real-time imag ing, as well as color and pulse Doppler interrogation, were (units unknown) (unknown) (unknown) (no date) (unknown) (unknown) Right: The com mon femoral, femoral and popliteal veins are normally (units unknown) (unknown) (unknown) (no date) (unknown) (unknown) Signed (units unknown) (unknown) (unknown) (no date) (unknown) (unknown) TECHNIQUE: (units unknown) (unknown) (unknown) (no date) (unknown) (unknown) Ultrasound Report (u nits unknown) (unknown) (unknown) (no date) (unknown) (unknown) and free (units unknown) (unknown) (unknown) (no date) (unknown) (unknown) compressible, and (u nits unknown) (unknown) (unknown) (no date) (unknown) (unknown) free of intral uminal thrombus. Color and pulse Doppler demonstrate normal (units unknown) (unknown) (unknown) (no date) (unknown) (unknown) intravascular flow. There is normal augmentation response to distal compression (units unknown) (unknown) (unknown) (no date) (unknown) (unknown) maneuver. (units unknown) (unknown) (unknown) (no date) (unknown) (unknown) of intralumina l thrombus. Color and pulse Doppler demonstrate normal phasic (units unknown) (unknown) (unknown) (no date) (unknown) (unknown) performed of (units unknown) (unknown) (unknown) (no date) (unknown) (unknown) phasic (units unknown) (unknown) (unknown) (no date) (unknown) (unknown) the deep veins of both legs from the inguinal ligament to the popliteal fossa. (units unknown) (unknown) Result panel 2 (unknown) (no date) (unknown) (unknown) (no value) (units unknown) (unknown) (unknown) (no date) (unknown) (unknown) 09/17/22 (units unknown) (unknown) (unknown) (no date) (unknown) (unknown) [id number] (units unknown) (unknown) (unknown) (no date) (unknown) (unknown) 12/17/22 16:41 (unit s unknown) (unknown) (unknown) (no date) (unknown) (unknown) 12/17/22 17:14 (unit s unknown) (unknown) (unknown) (no date) (unknown) (unknown) 12/17/22 (units unknown) (unknown) (unknown) (no date) (unknown) (unknown) 1 ea topical D AILY Qty: 30 0RF (units unknown) (unknown) (unknown) (no date) (unknown) (unknown) 1 patch transd ermal Q12H PRN (Reason: Pain, Mild) (units unknown) (unknown) (unknown) (no date) (unknown) (unknown) 1 puff INHALAT ION PRN PRN (Reason: Wheezing) (units unknown) (unknown) (unknown) (no date) (unknown) (unknown) 1 tab PO BID Q ty: 8 0RF (units unknown) (unknown) (unknown) (no date) (unknown) (unknown) 100 mg PO BID Qty: 60 0RF (units unknown) (unknown) (unknown) (no date) (unknown) (unknown) 14:41 12/17/22 (unit s unknown) (unknown) (unknown) (no date) (unknown) (unknown) 15:51 (units unknown) (unknown) (unknown) (no date) (unknown) (unknown) 2.5 mg PO BID (units unknown) (unknown) (unknown) (no date) (unknown) (unknown) 25 mg PO BID Qty: 0 (units unknown) (unknown) (unknown) (no date) (unknown) (unknown) 40 mg PO DAILY (unit s unknown) (unknown) (unknown) (no date) (unknown) (unknown) 600 mg PO TID (units unknown) (unknown) (unknown) (no date) (unknown) (unknown) 82-year-old ma le with past medical history spinal cord injury, decubitus (units unknown) (unknown) (unknown) (no date) (unknown) (unknown) Age/Sex: 82 / M (uni ts unknown) (unknown) (unknown) (no date) (unknown) (unknown) Allergies (units unknown) (unknown) (unknown) (no date) (unknown) (unknown) Allergy/AdvRea c Type Severity Reaction Status Date / Time (units unknown) (unknown) (unknown) (no date) (unknown) (unknown) Blood Pressure 131/73 12/17/22 14:41 (units unknown) (unknown) (unknown) (no date) (unknown) (unknown) Blood Pressure 131/7 3 (units unknown) (unknown) (unknown) (no date) (unknown) (unknown) Chief complain t: Extremity Problem,Nontraumatic (units unknown) (unknown) (unknown) (no date) (unknown) (unknown) Chronic anticoagulation (units unknown) (unknown) (unknown) (no date) (unknown) (unknown) Chronic indwel ling Hull catheter (units unknown) (unknown) (unknown) (no date) (unknown) (unknown) Congestive hea rt failure (units unknown) (unknown) (unknown) (no date) (unknown) (unknown) Consult to [facility] [employer] Stat (units unknown) (unknown) (unknown) (no date) (unknown) (unknown) Coronary arter y disease (units unknown) (unknown) (unknown) (no date) (unknown) (unknown) Course (units unknown) (unknown) (unknown) (no date) (unknown) (unknown) : 2 Acct:[id number] (units unknown) (unknown) (unknown) (no date) (unknown) (unknown) Date of Servic e: 12/17/22 (units unknown) (unknown) (unknown) (no date) (unknown) (unknown) Departure (units unknown) (unknown) (unknown) (no date) (unknown) (unknown) Discharge Plan (unit s unknown) (unknown) (unknown) (no date) (unknown) (unknown) ED Orders (units unknown) (unknown) (unknown) (no date) (unknown) (unknown) ER Physician: Deondre Murdock P.A-C (units unknown) (unknown) (unknown) (no date) (unknown) (unknown) Eliquis 2.5 mg table t (units unknown) (unknown) (unknown) (no date) (unknown) (unknown) Emergency Report (un its unknown) (unknown) (unknown) (no date) (unknown) (unknown) Exam (units unknown) (unknown) (unknown) (no date) (unknown) (unknown) Family History (units unknown) (unknown) (unknown) (no date) (unknown) (unknown) Father d Congestive heart failure (units unknown) (unknown) (unknown) (no date) (unknown) (unknown) General (units unknown) (unknown) (unknown) (no date) (unknown) (unknown) HPI - Extremit y Problem (units unknown) (unknown) (unknown) (no date) (unknown) (unknown) HPI Narrative: (unit s unknown) (unknown) (unknown) (no date) (unknown) (unknown) History of MS (myocardial infarction) (units unknown) (unknown) (unknown) (no date) (unknown) (unknown) History of Pre sent Illness (units unknown) (unknown) (unknown) (no date) (unknown) (unknown) History of cor onary artery stent placement (units unknown) (unknown) (unknown) (no date) (unknown) (unknown) History of laminectomy (units unknown) (unknown) (unknown) (no date) (unknown) (unknown) History of rig ht knee joint replacement (units unknown) (unknown) (unknown) (no date) (unknown) (unknown) Home Medications (un its unknown) (unknown) (unknown) (no date) (unknown) (unknown) Hyperlipidemia (unit s unknown) (unknown) (unknown) (no date) (unknown) (unknown) Hypertension (units unknown) (unknown) (unknown) (no date) (unknown) (unknown) Initial Vital Signs (units unknown) (unknown) (unknown) (no date) (unknown) (unknown) Initial Vital Signs: (units unknown) (unknown) (unknown) (no date) (unknown) (unknown) Intermittent self-catheterization of bladder (units unknown) (unknown) (unknown) (no date) (unknown) (unknown) [address] [address] (units unknown) (unknown) (unknown) (no date) (unknown) (unknown) Medical Histor y (units unknown) (unknown) (unknown) (no date) (unknown) (unknown) Medication Instructions Recorded Confirmed (units unknown) (unknown) (unknown) (no date) (unknown) (unknown) Medication Instructions Recorded (units unknown) (unknown) (unknown) (no date) (unknown) (unknown) Mild (units unknown) (unknown) (unknown) (no date) (unknown) (unknown) Mode of arrival: EMS (units unknown) (unknown) (unknown) (no date) (unknown) (unknown) Mother d Cancer (units unknown) (unknown) (unknown) (no date) (unknown) (unknown) No Action (units unknown) (unknown) (unknown) (no date) (unknown) (unknown) No Known Drug Allergies Allergy Verified 09/16/22 17:38 (units unknown) (unknown) (unknown) (no date) (unknown) (unknown) Ordered: (units unknown) (unknown) (unknown) (no date) (unknown) (unknown) Orders (units unknown) (unknown) (unknown) (no date) (unknown) (unknown) Oxygen Deliver y Method Room Air 12/17/22 14:41 (units unknown) (unknown) (unknown) (no date) (unknown) (unknown) Oxygen Deliver y Method Room Air (units unknown) (unknown) (unknown) (no date) (unknown) (unknown) Pacemaker (units unknown) (unknown) (unknown) (no date) (unknown) (unknown) Paraplegic spi nal paralysis (units unknown) (unknown) (unknown) (no date) (unknown) (unknown) Patient History (uni ts unknown) (unknown) (unknown) (no date) (unknown) (unknown) Patient: Armani Sunshine MR#: [id number] (units unknown) (unknown) (unknown) (no date) (unknown) (unknown) Prescriptions: (unit s unknown) (unknown) (unknown) (no date) (unknown) (unknown) Previous Rx's (units unknown) (unknown) (unknown) (no date) (unknown) (unknown) Pulse Oximetry 93 12/17/22 14:41 (units unknown) (unknown) (unknown) (no date) (unknown) (unknown) Pulse Oximetry 93 (u nits unknown) (unknown) (unknown) (no date) (unknown) (unknown) Pulse Rate 74 12/17/22 14:41 (units unknown) (unknown) (unknown) (no date) (unknown) (unknown) Pulse Rate 74 (units unknown) (unknown) (unknown) (no date) (unknown) (unknown) Pulse Rate [Ri ght Dorsalis Pedis] 63 (units unknown) (unknown) (unknown) (no date) (unknown) (unknown) Referrals: (units unknown) (unknown) (unknown) (no date) (unknown) (unknown) Related Data (units unknown) (unknown) (unknown) (no date) (unknown) (unknown) Respiratory Ra te 22 12/17/22 14:41 (units unknown) (unknown) (unknown) (no date) (unknown) (unknown) Respiratory Rate 22 (units unknown) (unknown) (unknown) (no date) (unknown) (unknown) Vanessa Krishnamurthy DO [Primary Care Provider] (units unknown) (unknown) (unknown) (no date) (unknown) (unknown) Signed By: (units unknown) (unknown) (unknown) (no date) (unknown) (unknown) Smoking Status : Never smoker (units unknown) (unknown) (unknown) (no date) (unknown) (unknown) Social History (units unknown) (unknown) (unknown) (no date) (unknown) (unknown) Source: patien t and EMS (units unknown) (unknown) (unknown) (no date) (unknown) (unknown) Spinal cord in [facility], incomplete (units unknown) (unknown) (unknown) (no date) (unknown) (unknown) Stated complai nt: Rt Leg Swelling (units unknown) (unknown) (unknown) (no date) (unknown) (unknown) Substance Use Type: does not use (units unknown) (unknown) (unknown) (no date) (unknown) (unknown) Surgical Histo ry (units unknown) (unknown) (unknown) (no date) (unknown) (unknown) Temperature 98 .1 F 12/17/22 14:41 (units unknown) (unknown) (unknown) (no date) (unknown) (unknown) Temperature 98.1 F ( units unknown) (unknown) (unknown) (no date) (unknown) (unknown) Time Seen by Provider: 12/17/22 14:35 (units unknown) (unknown) (unknown) (no date) (unknown) (unknown) US periph veno us low extrem bi Stat (units unknown) (unknown) (unknown) (no date) (unknown) (unknown) Vital Signs - 8 hr ( units unknown) (unknown) (unknown) (no date) (unknown) (unknown) Vital Signs (units unknown) (unknown) (unknown) (no date) (unknown) (unknown) Vital signs: (units unknown) (unknown) (unknown) (no date) (unknown) (unknown) aerosol inhale r (ProAir HFA) (units unknown) (unknown) (unknown) (no date) (unknown) (unknown) albuterol sulf ate 90 mcg/actuation 1 puff inhalation PRN PRN Wheezing 09/17/22 (units unknown) (unknown) (unknown) (no date) (unknown) (unknown) albuterol sulf ate [ProAir HFA] 90 mcg/actuation HFA aerosol inhaler (units unknown) (unknown) (unknown) (no date) (unknown) (unknown) amoxicillin 87 5 mg-potassium 1 tab PO BID #8 tabs 09/23/22 (units unknown) (unknown) (unknown) (no date) (unknown) (unknown) amoxicillin-po t clavulanate 875-125 mg Tablet (units unknown) (unknown) (unknown) (no date) (unknown) (unknown) apixaban 2.5 m g tablet (Eliquis) 2.5 mg PO BID 09/17/22 09/17/22 (units unknown) (unknown) (unknown) (no date) (unknown) (unknown) atorvastatin 4 0 mg tablet 40 mg PO DAILY 09/17/22 09/17/22 (units unknown) (unknown) (unknown) (no date) (unknown) (unknown) atorvastatin 4 0 mg tablet (units unknown) (unknown) (unknown) (no date) (unknown) (unknown) carvedilol 25 mg tablet (Coreg) 25 mg PO BID ##0 04/14/12 09/17/22 (units unknown) (unknown) (unknown) (no date) (unknown) (unknown) carvedilol [Co reg] 25 MG tablet (units unknown) (unknown) (unknown) (no date) (unknown) (unknown) clavulanate 12 5 mg tablet (units unknown) (unknown) (unknown) (no date) (unknown) (unknown) docusate sodiu m 100 mg Capsule (units unknown) (unknown) (unknown) (no date) (unknown) (unknown) docusate sodiu m 100 mg capsule 100 mg PO BID #60 caps 09/23/22 (units unknown) (unknown) (unknown) (no date) (unknown) (unknown) gabapentin 600 mg tablet 600 mg PO TID 09/17/22 09/17/22 (units unknown) (unknown) (unknown) (no date) (unknown) (unknown) gabapentin 600 mg tablet (units unknown) (unknown) (unknown) (no date) (unknown) (unknown) household memb ers: spouse (units unknown) (unknown) (unknown) (no date) (unknown) (unknown) lidocaine 5 % Adhesive Patch,Medicated (units unknown) (unknown) (unknown) (no date) (unknown) (unknown) lidocaine 5 % adhesive patch,medicated (units unknown) (unknown) (unknown) (no date) (unknown) (unknown) lidocaine 5 % topical patch 1 ea topical DAILY #30 ea 09/23/22 (units unknown) (unknown) (unknown) (no date) (unknown) (unknown) lidocaine 5 % topical patch 1 patch transdermal Q12H PRN Pain, 09/17/22 09/17/22 (units unknown) (unknown) Result panel 3 (unknown) (no date) (unknown) (unknown) (no value) (units unknown) (unknown) (unknown) (no date) (unknown) (unknown) 09/17/22 (units unknown) (unknown) (unknown) (no date) (unknown) (unknown) [id number] (units unknown) (unknown) (unknown) (no date) (unknown) (unknown) 12/17/22 16:41 (unit s unknown) (unknown) (unknown) (no date) (unknown) (unknown) 12/17/22 17:14 (unit s unknown) (unknown) (unknown) (no date) (unknown) (unknown) 12/17/22 (units unknown) (unknown) (unknown) (no date) (unknown) (unknown) 1 ea topical D AILY Qty: 30 0RF (units unknown) (unknown) (unknown) (no date) (unknown) (unknown) 1 patch transd ermal Q12H PRN (Reason: Pain, Mild) (units unknown) (unknown) (unknown) (no date) (unknown) (unknown) 1 puff INHALAT ION PRN PRN (Reason: Wheezing) (units unknown) (unknown) (unknown) (no date) (unknown) (unknown) 1 tab PO BID Q ty: 8 0RF (units unknown) (unknown) (unknown) (no date) (unknown) (unknown) 100 mg PO BID Qty: 60 0RF (units unknown) (unknown) (unknown) (no date) (unknown) (unknown) 14:41 12/17/22 (unit s unknown) (unknown) (unknown) (no date) (unknown) (unknown) 15:51 (units unknown) (unknown) (unknown) (no date) (unknown) (unknown) 2.5 mg PO BID (units unknown) (unknown) (unknown) (no date) (unknown) (unknown) 25 mg PO BID Qty: 0 (units unknown) (unknown) (unknown) (no date) (unknown) (unknown) 40 mg PO DAILY (unit s unknown) (unknown) (unknown) (no date) (unknown) (unknown) 600 mg PO TID (units unknown) (unknown) (unknown) (no date) (unknown) (unknown) 82-year-old ma le with past medical history spinal cord injury, decubitus (units unknown) (unknown) (unknown) (no date) (unknown) (unknown) Age/Sex: 82 / M (uni ts unknown) (unknown) (unknown) (no date) (unknown) (unknown) Allergies (units unknown) (unknown) (unknown) (no date) (unknown) (unknown) Allergy/AdvRea c Type Severity Reaction Status Date / Time (units unknown) (unknown) (unknown) (no date) (unknown) (unknown) Blood Pressure 131/73 12/17/22 14:41 (units unknown) (unknown) (unknown) (no date) (unknown) (unknown) Blood Pressure 131/7 3 (units unknown) (unknown) (unknown) (no date) (unknown) (unknown) Chief complain t: Extremity Problem,Nontraumatic (units unknown) (unknown) (unknown) (no date) (unknown) (unknown) Chronic anticoagulation (units unknown) (unknown) (unknown) (no date) (unknown) (unknown) Chronic indwel ling Hull catheter (units unknown) (unknown) (unknown) (no date) (unknown) (unknown) Congestive hea rt failure (units unknown) (unknown) (unknown) (no date) (unknown) (unknown) Consult to [facility] [place] [employer] Stat (units unknown) (unknown) (unknown) (no date) (unknown) (unknown) Coronary arter y disease (units unknown) (unknown) (unknown) (no date) (unknown) (unknown) Course (units unknown) (unknown) (unknown) (no date) (unknown) (unknown) : 2 Acct:[id number] (units unknown) (unknown) (unknown) (no date) (unknown) (unknown) Date of Servic e: 12/17/22 (units unknown) (unknown) (unknown) (no date) (unknown) (unknown) Departure (units unknown) (unknown) (unknown) (no date) (unknown) (unknown) Discharge Plan (unit s unknown) (unknown) (unknown) (no date) (unknown) (unknown) ED Orders (units unknown) (unknown) (unknown) (no date) (unknown) (unknown) ER Physician: Deondre Murdock P.A-C (units unknown) (unknown) (unknown) (no date) (unknown) (unknown) Eliquis 2.5 mg table t (units unknown) (unknown) (unknown) (no date) (unknown) (unknown) Emergency Report (un its unknown) (unknown) (unknown) (no date) (unknown) (unknown) Exam (units unknown) (unknown) (unknown) (no date) (unknown) (unknown) Family History (units unknown) (unknown) (unknown) (no date) (unknown) (unknown) Father d Congestive heart failure (units unknown) (unknown) (unknown) (no date) (unknown) (unknown) General (units unknown) (unknown) (unknown) (no date) (unknown) (unknown) HPI - Extremit y Problem (units unknown) (unknown) (unknown) (no date) (unknown) (unknown) HPI Narrative: (unit s unknown) (unknown) (unknown) (no date) (unknown) (unknown) History of MS (myocardial infarction) (units unknown) (unknown) (unknown) (no date) (unknown) (unknown) History of Pre sent Illness (units unknown) (unknown) (unknown) (no date) (unknown) (unknown) History of cor onary artery stent placement (units unknown) (unknown) (unknown) (no date) (unknown) (unknown) History of laminectomy (units unknown) (unknown) (unknown) (no date) (unknown) (unknown) History of rig ht knee joint replacement (units unknown) (unknown) (unknown) (no date) (unknown) (unknown) Home Medications (un its unknown) (unknown) (unknown) (no date) (unknown) (unknown) Hyperlipidemia (unit s unknown) (unknown) (unknown) (no date) (unknown) (unknown) Hypertension (units unknown) (unknown) (unknown) (no date) (unknown) (unknown) Initial Vital Signs (units unknown) (unknown) (unknown) (no date) (unknown) (unknown) Initial Vital Signs: (units unknown) (unknown) (unknown) (no date) (unknown) (unknown) Intermittent self-catheterization of bladder (units unknown) (unknown) (unknown) (no date) (unknown) (unknown) [address] [address] (units unknown) (unknown) (unknown) (no date) (unknown) (unknown) Medical Histor y (units unknown) (unknown) (unknown) (no date) (unknown) (unknown) Medication Instructions Recorded Confirmed (units unknown) (unknown) (unknown) (no date) (unknown) (unknown) Medication Instructions Recorded (units unknown) (unknown) (unknown) (no date) (unknown) (unknown) Mild (units unknown) (unknown) (unknown) (no date) (unknown) (unknown) Mode of arrival: EMS (units unknown) (unknown) (unknown) (no date) (unknown) (unknown) Mother d Cancer (units unknown) (unknown) (unknown) (no date) (unknown) (unknown) No Action (units unknown) (unknown) (unknown) (no date) (unknown) (unknown) No Known Drug Allergies Allergy Verified 09/16/22 17:38 (units unknown) (unknown) (unknown) (no date) (unknown) (unknown) Ordered: (units unknown) (unknown) (unknown) (no date) (unknown) (unknown) Orders (units unknown) (unknown) (unknown) (no date) (unknown) (unknown) Oxygen Deliver y Method Room Air 12/17/22 14:41 (units unknown) (unknown) (unknown) (no date) (unknown) (unknown) Oxygen Deliver y Method Room Air (units unknown) (unknown) (unknown) (no date) (unknown) (unknown) Pacemaker (units unknown) (unknown) (unknown) (no date) (unknown) (unknown) Paraplegic spi nal paralysis (units unknown) (unknown) (unknown) (no date) (unknown) (unknown) Patient History (uni ts unknown) (unknown) (unknown) (no date) (unknown) (unknown) Patient: Arm[employer] Sunshine MR#: [id number] (units unknown) (unknown) (unknown) (no date) (unknown) (unknown) Prescriptions: (unit s unknown) (unknown) (unknown) (no date) (unknown) (unknown) Previous Rx's (units unknown) (unknown) (unknown) (no date) (unknown) (unknown) Pulse Oximetry 93 12/17/22 14:41 (units unknown) (unknown) (unknown) (no date) (unknown) (unknown) Pulse Oximetry 93 (u nits unknown) (unknown) (unknown) (no date) (unknown) (unknown) Pulse Rate 74 12/17/22 14:41 (units unknown) (unknown) (unknown) (no date) (unknown) (unknown) Pulse Rate 74 (units unknown) (unknown) (unknown) (no date) (unknown) (unknown) Pulse Rate [Ri ght Dorsalis Pedis] 63 (units unknown) (unknown) (unknown) (no date) (unknown) (unknown) Referrals: (units unknown) (unknown) (unknown) (no date) (unknown) (unknown) Related Data (units unknown) (unknown) (unknown) (no date) (unknown) (unknown) Respiratory Ra te 22 12/17/22 14:41 (units unknown) (unknown) (unknown) (no date) (unknown) (unknown) Respiratory Rate 22 (units unknown) (unknown) (unknown) (no date) (unknown) (unknown) Vanessa Krishnamurthy DO [Primary Care Provider] (units unknown) (unknown) (unknown) (no date) (unknown) (unknown) Signed By: (units unknown) (unknown) (unknown) (no date) (unknown) (unknown) Smoking Status : Never smoker (units unknown) (unknown) (unknown) (no date) (unknown) (unknown) Social History (units unknown) (unknown) (unknown) (no date) (unknown) (unknown) Source: patien t and EMS (units unknown) (unknown) (unknown) (no date) (unknown) (unknown) 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, incomplete (units unknown) (unknown) (unknown) (no date) (unknown) (unknown) Stated complai nt: Rt Leg Swelling (units unknown) (unknown) (unknown) (no date) (unknown) (unknown) Substance Use Type: does not use (units unknown) (unknown) (unknown) (no date) (unknown) (unknown) Surgical Histo ry (units unknown) (unknown) (unknown) (no date) (unknown) (unknown) Temperature 98 .1 F 12/17/22 14:41 (units unknown) (unknown) (unknown) (no date) (unknown) (unknown) Temperature 98.1 F ( units unknown) (unknown) (unknown) (no date) (unknown) (unknown) Time Seen by Provider: 12/17/22 14:35 (units unknown) (unknown) (unknown) (no date) (unknown) (unknown) US periph veno us low extrem bi Stat (units unknown) (unknown) (unknown) (no date) (unknown) (unknown) Vital Signs - 8 hr ( units unknown) (unknown) (unknown) (no date) (unknown) (unknown) Vital Signs (units unknown) (unknown) (unknown) (no date) (unknown) (unknown) Vital signs: (units unknown) (unknown) (unknown) (no date) (unknown) (unknown) aerosol inhale r (ProAir HFA) (units unknown) (unknown) (unknown) (no date) (unknown) (unknown) albuterol sulf ate 90 mcg/actuation 1 puff inhalation PRN PRN Wheezing 09/17/22 (units unknown) (unknown) (unknown) (no date) (unknown) (unknown) albuterol sulf ate [ProAir HFA] 90 mcg/actuation HFA aerosol inhaler (units unknown) (unknown) (unknown) (no date) (unknown) (unknown) amoxicillin 87 5 mg-potassium 1 tab PO BID #8 tabs 09/23/22 (units unknown) (unknown) (unknown) (no date) (unknown) (unknown) amoxicillin-po t clavulanate 875-125 mg Tablet (units unknown) (unknown) (unknown) (no date) (unknown) (unknown) apixaban 2.5 m g tablet (Eliquis) 2.5 mg PO BID 09/17/22 09/17/22 (units unknown) (unknown) (unknown) (no date) (unknown) (unknown) atorvastatin 4 0 mg tablet 40 mg PO DAILY 09/17/22 09/17/22 (units unknown) (unknown) (unknown) (no date) (unknown) (unknown) atorvastatin 4 0 mg tablet (units unknown) (unknown) (unknown) (no date) (unknown) (unknown) carvedilol 25 mg tablet (Coreg) 25 mg PO BID ##0 04/14/12 09/17/22 (units unknown) (unknown) (unknown) (no date) (unknown) (unknown) carvedilol [Co reg] 25 MG tablet (units unknown) (unknown) (unknown) (no date) (unknown) (unknown) clavulanate 12 5 mg tablet (units unknown) (unknown) (unknown) (no date) (unknown) (unknown) docusate sodiu m 100 mg Capsule (units unknown) (unknown) (unknown) (no date) (unknown) (unknown) docusate sodiu m 100 mg capsule 100 mg PO BID #60 caps 09/23/22 (units unknown) (unknown) (unknown) (no date) (unknown) (unknown) gabapentin 600 mg tablet 600 mg PO TID 09/17/22 09/17/22 (units unknown) (unknown) (unknown) (no date) (unknown) (unknown) gabapentin 600 mg tablet (units unknown) (unknown) (unknown) (no date) (unknown) (unknown) household memb ers: spouse (units unknown) (unknown) (unknown) (no date) (unknown) (unknown) lidocaine 5 % Adhesive Patch,Medicated (units unknown) (unknown) (unknown) (no date) (unknown) (unknown) lidocaine 5 % adhesive patch,medicated (units unknown) (unknown) (unknown) (no date) (unknown) (unknown) lidocaine 5 % topical patch 1 ea topical DAILY #30 ea 09/23/22 (units unknown) (unknown) (unknown) (no date) (unknown) (unknown) lidocaine 5 % topical patch 1 patch transdermal Q12H PRN Pain, 09/17/22 09/17/22 (units unknown) (unknown) Result panel 4 (unknown) (no date) (unknown) (unknown) (no value) (units unknown) (unknown) (unknown) (no date) (unknown) (unknown) 09/17/22 (units unknown) (unknown) (unknown) (no date) (unknown) (unknown) [id number] (units unknown) (unknown) (unknown) (no date) (unknown) (unknown) 12/17/22 16:41 (unit s unknown) (unknown) (unknown) (no date) (unknown) (unknown) 12/17/22 17:14 (unit s unknown) (unknown) (unknown) (no date) (unknown) (unknown) 12/17/22 (units unknown) (unknown) (unknown) (no date) (unknown) (unknown) 1 ea topical D AILY Qty: 30 0RF (units unknown) (unknown) (unknown) (no date) (unknown) (unknown) 1 patch transd ermal Q12H PRN (Reason: Pain, Mild) (units unknown) (unknown) (unknown) (no date) (unknown) (unknown) 1 puff INHALAT ION PRN PRN (Reason: Wheezing) (units unknown) (unknown) (unknown) (no date) (unknown) (unknown) 1 tab PO BID Q ty: 8 0RF (units unknown) (unknown) (unknown) (no date) (unknown) (unknown) 100 mg PO BID Qty: 60 0RF (units unknown) (unknown) (unknown) (no date) (unknown) (unknown) 14:41 12/17/22 (unit s unknown) (unknown) (unknown) (no date) (unknown) (unknown) 15:51 (units unknown) (unknown) (unknown) (no date) (unknown) (unknown) 2.5 mg PO BID (units unknown) (unknown) (unknown) (no date) (unknown) (unknown) 25 mg PO BID Qty: 0 (units unknown) (unknown) (unknown) (no date) (unknown) (unknown) 40 mg PO DAILY (unit s unknown) (unknown) (unknown) (no date) (unknown) (unknown) 600 mg PO TID (units unknown) (unknown) (unknown) (no date) (unknown) (unknown) 82-year-old ma le with past medical history spinal cord injury, decubitus (units unknown) (unknown) (unknown) (no date) (unknown) (unknown) Age/Sex: 82 / M (uni ts unknown) (unknown) (unknown) (no date) (unknown) (unknown) Allergies (units unknown) (unknown) (unknown) (no date) (unknown) (unknown) Allergy/AdvRea c Type Severity Reaction Status Date / Time (units unknown) (unknown) (unknown) (no date) (unknown) (unknown) Blood Pressure 131/73 12/17/22 14:41 (units unknown) (unknown) (unknown) (no date) (unknown) (unknown) Blood Pressure 131/7 3 (units unknown) (unknown) (unknown) (no date) (unknown) (unknown) Chief complain t: Extremity Problem,Nontraumatic (units unknown) (unknown) (unknown) (no date) (unknown) (unknown) Chronic anticoagulation (units unknown) (unknown) (unknown) (no date) (unknown) (unknown) Chronic indwel ling Hull catheter (units unknown) (unknown) (unknown) (no date) (unknown) (unknown) Congestive hea rt failure (units unknown) (unknown) (unknown) (no date) (unknown) (unknown) Consult to [facility] [place] [employer] Stat (units unknown) (unknown) (unknown) (no date) (unknown) (unknown) Coronary arter y disease (units unknown) (unknown) (unknown) (no date) (unknown) (unknown) Course (units unknown) (unknown) (unknown) (no date) (unknown) (unknown) : 2 Acct:[id number] (units unknown) (unknown) (unknown) (no date) (unknown) (unknown) Date of Servic e: 12/17/22 (units unknown) (unknown) (unknown) (no date) (unknown) (unknown) Departure (units unknown) (unknown) (unknown) (no date) (unknown) (unknown) Discharge Plan (unit s unknown) (unknown) (unknown) (no date) (unknown) (unknown) ED Orders (units unknown) (unknown) (unknown) (no date) (unknown) (unknown) ER Physician: Deondre Murdock P.A-C (units unknown) (unknown) (unknown) (no date) (unknown) (unknown) Eliquis 2.5 mg table t (units unknown) (unknown) (unknown) (no date) (unknown) (unknown) Emergency Report (un its unknown) (unknown) (unknown) (no date) (unknown) (unknown) Exam (units unknown) (unknown) (unknown) (no date) (unknown) (unknown) Family History (units unknown) (unknown) (unknown) (no date) (unknown) (unknown) Father d Congestive heart failure (units unknown) (unknown) (unknown) (no date) (unknown) (unknown) General (units unknown) (unknown) (unknown) (no date) (unknown) (unknown) HPI - Extremit y Problem (units unknown) (unknown) (unknown) (no date) (unknown) (unknown) HPI Narrative: (unit s unknown) (unknown) (unknown) (no date) (unknown) (unknown) History of MS (myocardial infarction) (units unknown) (unknown) (unknown) (no date) (unknown) (unknown) History of Pre sent Illness (units unknown) (unknown) (unknown) (no date) (unknown) (unknown) History of cor onary artery stent placement (units unknown) (unknown) (unknown) (no date) (unknown) (unknown) History of laminectomy (units unknown) (unknown) (unknown) (no date) (unknown) (unknown) History of rig ht knee joint replacement (units unknown) (unknown) (unknown) (no date) (unknown) (unknown) Home Medications (un its unknown) (unknown) (unknown) (no date) (unknown) (unknown) Hyperlipidemia (unit s unknown) (unknown) (unknown) (no date) (unknown) (unknown) Hypertension (units unknown) (unknown) (unknown) (no date) (unknown) (unknown) Initial Vital Signs (units unknown) (unknown) (unknown) (no date) (unknown) (unknown) Initial Vital Signs: (units unknown) (unknown) (unknown) (no date) (unknown) (unknown) Intermittent self-catheterization of bladder (units unknown) (unknown) (unknown) (no date) (unknown) (unknown) [address] [address] (units unknown) (unknown) (unknown) (no date) (unknown) (unknown) Medical Histor y (units unknown) (unknown) (unknown) (no date) (unknown) (unknown) Medication Instructions Recorded Confirmed (units unknown) (unknown) (unknown) (no date) (unknown) (unknown) Medication Instructions Recorded (units unknown) (unknown) (unknown) (no date) (unknown) (unknown) Mild (units unknown) (unknown) (unknown) (no date) (unknown) (unknown) Mode of arrival: EMS (units unknown) (unknown) (unknown) (no date) (unknown) (unknown) Mother d Cancer (units unknown) (unknown) (unknown) (no date) (unknown) (unknown) No Action (units unknown) (unknown) (unknown) (no date) (unknown) (unknown) No Known Drug Allergies Allergy Verified 09/16/22 17:38 (units unknown) (unknown) (unknown) (no date) (unknown) (unknown) Ordered: (units unknown) (unknown) (unknown) (no date) (unknown) (unknown) Orders (units unknown) (unknown) (unknown) (no date) (unknown) (unknown) Oxygen Deliver y Method Room Air 12/17/22 14:41 (units unknown) (unknown) (unknown) (no date) (unknown) (unknown) Oxygen Deliver y Method Room Air (units unknown) (unknown) (unknown) (no date) (unknown) (unknown) Pacemaker (units unknown) (unknown) (unknown) (no date) (unknown) (unknown) Paraplegic spi nal paralysis (units unknown) (unknown) (unknown) (no date) (unknown) (unknown) Patient History (uni ts unknown) (unknown) (unknown) (no date) (unknown) (unknown) Patient: [employer] Sunshine MR#: [id number] (units unknown) (unknown) (unknown) (no date) (unknown) (unknown) Prescriptions: (unit s unknown) (unknown) (unknown) (no date) (unknown) (unknown) Previous Rx's (units unknown) (unknown) (unknown) (no date) (unknown) (unknown) Pulse Oximetry 93 12/17/22 14:41 (units unknown) (unknown) (unknown) (no date) (unknown) (unknown) Pulse Oximetry 93 (u nits unknown) (unknown) (unknown) (no date) (unknown) (unknown) Pulse Rate 74 12/17/22 14:41 (units unknown) (unknown) (unknown) (no date) (unknown) (unknown) Pulse Rate 74 (units unknown) (unknown) (unknown) (no date) (unknown) (unknown) Pulse Rate [Ri ght Dorsalis Pedis] 63 (units unknown) (unknown) (unknown) (no date) (unknown) (unknown) Referrals: (units unknown) (unknown) (unknown) (no date) (unknown) (unknown) Related Data (units unknown) (unknown) (unknown) (no date) (unknown) (unknown) Respiratory Ra te 22 12/17/22 14:41 (units unknown) (unknown) (unknown) (no date) (unknown) (unknown) Respiratory Rate 22 (units unknown) (unknown) (unknown) (no date) (unknown) (unknown) Vanessa Krishnamurthy DO [Primary Care Provider] (units unknown) (unknown) (unknown) (no date) (unknown) (unknown) Signed By: (units unknown) (unknown) (unknown) (no date) (unknown) (unknown) Smoking Status : Never smoker (units unknown) (unknown) (unknown) (no date) (unknown) (unknown) Social History (units unknown) (unknown) (unknown) (no date) (unknown) (unknown) Source: patien t and EMS (units unknown) (unknown) (unknown) (no date) (unknown) (unknown) 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, incomplete (units unknown) (unknown) (unknown) (no date) (unknown) (unknown) Stated complai nt: Rt Leg Swelling (units unknown) (unknown) (unknown) (no date) (unknown) (unknown) Substance Use Type: does not use (units unknown) (unknown) (unknown) (no date) (unknown) (unknown) Surgical Histo ry (units unknown) (unknown) (unknown) (no date) (unknown) (unknown) Temperature 98 .1 F 12/17/22 14:41 (units unknown) (unknown) (unknown) (no date) (unknown) (unknown) Temperature 98.1 F ( units unknown) (unknown) (unknown) (no date) (unknown) (unknown) Time Seen by Provider: 12/17/22 14:35 (units unknown) (unknown) (unknown) (no date) (unknown) (unknown) US periph veno us low extrem bi Stat (units unknown) (unknown) (unknown) (no date) (unknown) (unknown) Vital Signs - 8 hr ( units unknown) (unknown) (unknown) (no date) (unknown) (unknown) Vital Signs (units unknown) (unknown) (unknown) (no date) (unknown) (unknown) Vital signs: (units unknown) (unknown) (unknown) (no date) (unknown) (unknown) aerosol inhale r (ProAir HFA) (units unknown) (unknown) (unknown) (no date) (unknown) (unknown) albuterol sulf ate 90 mcg/actuation 1 puff inhalation PRN PRN Wheezing 09/17/22 (units unknown) (unknown) (unknown) (no date) (unknown) (unknown) albuterol sulf ate [ProAir HFA] 90 mcg/actuation HFA aerosol inhaler (units unknown) (unknown) (unknown) (no date) (unknown) (unknown) amoxicillin 87 5 mg-potassium 1 tab PO BID #8 tabs 09/23/22 (units unknown) (unknown) (unknown) (no date) (unknown) (unknown) amoxicillin-po t clavulanate 875-125 mg Tablet (units unknown) (unknown) (unknown) (no date) (unknown) (unknown) apixaban 2.5 m g tablet (Eliquis) 2.5 mg PO BID 09/17/22 09/17/22 (units unknown) (unknown) (unknown) (no date) (unknown) (unknown) atorvastatin 4 0 mg tablet 40 mg PO DAILY 09/17/22 09/17/22 (units unknown) (unknown) (unknown) (no date) (unknown) (unknown) atorvastatin 4 0 mg tablet (units unknown) (unknown) (unknown) (no date) (unknown) (unknown) carvedilol 25 mg tablet (Coreg) 25 mg PO BID ##0 04/14/12 09/17/22 (units unknown) (unknown) (unknown) (no date) (unknown) (unknown) carvedilol [Co reg] 25 MG tablet (units unknown) (unknown) (unknown) (no date) (unknown) (unknown) clavulanate 12 5 mg tablet (units unknown) (unknown) (unknown) (no date) (unknown) (unknown) docusate sodiu m 100 mg Capsule (units unknown) (unknown) (unknown) (no date) (unknown) (unknown) docusate sodiu m 100 mg capsule 100 mg PO BID #60 caps 09/23/22 (units unknown) (unknown) (unknown) (no date) (unknown) (unknown) gabapentin 600 mg tablet 600 mg PO TID 09/17/22 09/17/22 (units unknown) (unknown) (unknown) (no date) (unknown) (unknown) gabapentin 600 mg tablet (units unknown) (unknown) (unknown) (no date) (unknown) (unknown) household memb ers: spouse (units unknown) (unknown) (unknown) (no date) (unknown) (unknown) lidocaine 5 % Adhesive Patch,Medicated (units unknown) (unknown) (unknown) (no date) (unknown) (unknown) lidocaine 5 % adhesive patch,medicated (units unknown) (unknown) (unknown) (no date) (unknown) (unknown) lidocaine 5 % topical patch 1 ea topical DAILY #30 ea 09/23/22 (units unknown) (unknown) (unknown) (no date) (unknown) (unknown) lidocaine 5 % topical patch 1 patch transdermal Q12H PRN Pain, 09/17/22 09/17/22 (units unknown) (unknown) Result panel 5 (unknown) (no date) (unknown) (unknown) (no value) (units unknown) (unknown) (unknown) (no date) (unknown) (unknown) 09/17/22 (units unknown) (unknown) (unknown) (no date) (unknown) (unknown) [id number] (units unknown) (unknown) (unknown) (no date) (unknown) (unknown) 12/17/22 16:41 (unit s unknown) (unknown) (unknown) (no date) (unknown) (unknown) 12/17/22 17:14 (unit s unknown) (unknown) (unknown) (no date) (unknown) (unknown) 12/17/22 (units unknown) (unknown) (unknown) (no date) (unknown) (unknown) 1 ea topical D AILY Qty: 30 0RF (units unknown) (unknown) (unknown) (no date) (unknown) (unknown) 1 patch transd ermal Q12H PRN (Reason: Pain, Mild) (units unknown) (unknown) (unknown) (no date) (unknown) (unknown) 1 puff INHALAT ION PRN PRN (Reason: Wheezing) (units unknown) (unknown) (unknown) (no date) (unknown) (unknown) 1 tab PO BID Q ty: 8 0RF (units unknown) (unknown) (unknown) (no date) (unknown) (unknown) 100 mg PO BID Qty: 60 0RF (units unknown) (unknown) (unknown) (no date) (unknown) (unknown) 14:41 12/17/22 (unit s unknown) (unknown) (unknown) (no date) (unknown) (unknown) 15:51 (units unknown) (unknown) (unknown) (no date) (unknown) (unknown) 2.5 mg PO BID (units unknown) (unknown) (unknown) (no date) (unknown) (unknown) 25 mg PO BID Qty: 0 (units unknown) (unknown) (unknown) (no date) (unknown) (unknown) 40 mg PO DAILY (unit s unknown) (unknown) (unknown) (no date) (unknown) (unknown) 600 mg PO TID (units unknown) (unknown) (unknown) (no date) (unknown) (unknown) 82-year-old ma alexandre with past medical history spinal cord injury, decubitus ulcer (units unknown) (unknown) (unknown) (no date) (unknown) (unknown) Age/Sex: 82 / M (uni ts unknown) (unknown) (unknown) (no date) (unknown) (unknown) Allergies (units unknown) (unknown) (unknown) (no date) (unknown) (unknown) Allergy/AdvRea c Type Severity Reaction Status Date / Time (units unknown) (unknown) (unknown) (no date) (unknown) (unknown) Blood Pressure 131/73 12/17/22 14:41 (units unknown) (unknown) (unknown) (no date) (unknown) (unknown) Blood Pressure 131/7 3 (units unknown) (unknown) (unknown) (no date) (unknown) (unknown) Chief complain t: Extremity Problem,Nontraumatic (units unknown) (unknown) (unknown) (no date) (unknown) (unknown) Chronic anticoagulation (units unknown) (unknown) (unknown) (no date) (unknown) (unknown) Chronic indwel ling Hull catheter (units unknown) (unknown) (unknown) (no date) (unknown) (unknown) Congestive hea rt failure (units unknown) (unknown) (unknown) (no date) (unknown) (unknown) Consult to [facility] [place] [employer] Stat (units unknown) (unknown) (unknown) (no date) (unknown) (unknown) Coronary arter y disease (units unknown) (unknown) (unknown) (no date) (unknown) (unknown) Course (units unknown) (unknown) (unknown) (no date) (unknown) (unknown) : 2 Acct:[id number] (units unknown) (unknown) (unknown) (no date) (unknown) (unknown) Date of Servic e: 12/17/22 (units unknown) (unknown) (unknown) (no date) (unknown) (unknown) Departure (units unknown) (unknown) (unknown) (no date) (unknown) (unknown) Discharge Plan (unit s unknown) (unknown) (unknown) (no date) (unknown) (unknown) ED Orders (units unknown) (unknown) (unknown) (no date) (unknown) (unknown) ER Physician: Deondre Murdock P.A-C (units unknown) (unknown) (unknown) (no date) (unknown) (unknown) Eliquis 2.5 mg table t (units unknown) (unknown) (unknown) (no date) (unknown) (unknown) Emergency Report (un its unknown) (unknown) (unknown) (no date) (unknown) (unknown) Exam (units unknown) (unknown) (unknown) (no date) (unknown) (unknown) Family History (units unknown) (unknown) (unknown) (no date) (unknown) (unknown) Father d Congestive heart failure (units unknown) (unknown) (unknown) (no date) (unknown) (unknown) General (units unknown) (unknown) (unknown) (no date) (unknown) (unknown) HPI - Extremit y Problem (units unknown) (unknown) (unknown) (no date) (unknown) (unknown) HPI Narrative: (unit s unknown) (unknown) (unknown) (no date) (unknown) (unknown) History of MS (myocardial infarction) (units unknown) (unknown) (unknown) (no date) (unknown) (unknown) History of Pre sent Illness (units unknown) (unknown) (unknown) (no date) (unknown) (unknown) History of cor onary artery stent placement (units unknown) (unknown) (unknown) (no date) (unknown) (unknown) History of laminectomy (units unknown) (unknown) (unknown) (no date) (unknown) (unknown) History of rig ht knee joint replacement (units unknown) (unknown) (unknown) (no date) (unknown) (unknown) Home Medications (un its unknown) (unknown) (unknown) (no date) (unknown) (unknown) Hyperlipidemia (unit s unknown) (unknown) (unknown) (no date) (unknown) (unknown) Hypertension (units unknown) (unknown) (unknown) (no date) (unknown) (unknown) Initial Vital Signs (units unknown) (unknown) (unknown) (no date) (unknown) (unknown) Initial Vital Signs: (units unknown) (unknown) (unknown) (no date) (unknown) (unknown) Intermittent self-catheterization of bladder (units unknown) (unknown) (unknown) (no date) (unknown) (unknown) [address] [address] (units unknown) (unknown) (unknown) (no date) (unknown) (unknown) MDM - Extremit y (Nontraumatic) (units unknown) (unknown) (unknown) (no date) (unknown) (unknown) MDM Narrative (units unknown) (unknown) (unknown) (no date) (unknown) (unknown) Medical Histor y (units unknown) (unknown) (unknown) (no date) (unknown) (unknown) Medical decisi on making narrative: (units unknown) (unknown) (unknown) (no date) (unknown) (unknown) Medication Instructions Recorded Confirmed (units unknown) (unknown) (unknown) (no date) (unknown) (unknown) Medication Instructions Recorded (units unknown) (unknown) (unknown) (no date) (unknown) (unknown) Mild (units unknown) (unknown) (unknown) (no date) (unknown) (unknown) Mode of arrival: EMS (units unknown) (unknown) (unknown) (no date) (unknown) (unknown) Mother d Cancer (units unknown) (unknown) (unknown) (no date) (unknown) (unknown) No Action (units unknown) (unknown) (unknown) (no date) (unknown) (unknown) No Known Drug Allergies Allergy Verified 09/16/22 17:38 (units unknown) (unknown) (unknown) (no date) (unknown) (unknown) Ordered: (units unknown) (unknown) (unknown) (no date) (unknown) (unknown) Orders (units unknown) (unknown) (unknown) (no date) (unknown) (unknown) Oxygen Deliver y Method Room Air 12/17/22 14:41 (units unknown) (unknown) (unknown) (no date) (unknown) (unknown) Oxygen Deliver y Method Room Air (units unknown) (unknown) (unknown) (no date) (unknown) (unknown) Pacemaker (units unknown) (unknown) (unknown) (no date) (unknown) (unknown) Paraplegic spi nal paralysis (units unknown) (unknown) (unknown) (no date) (unknown) (unknown) Patient History (uni ts unknown) (unknown) (unknown) (no date) (unknown) (unknown) Patient denies fever, chills, chest pain, shortness of breath, nausea, (units unknown) (unknown) (unknown) (no date) (unknown) (unknown) Patient's home health aide was also concerned about patient's leg swelling, (units unknown) (unknown) (unknown) (no date) (unknown) (unknown) Patient: [employer] Sunshine MR#: [id number] (units unknown) (unknown) (unknown) (no date) (unknown) (unknown) Prescriptions: (unit s unknown) (unknown) (unknown) (no date) (unknown) (unknown) Previous Rx's (units unknown) (unknown) (unknown) (no date) (unknown) (unknown) Pulse Oximetry 93 12/17/22 14:41 (units unknown) (unknown) (unknown) (no date) (unknown) (unknown) Pulse Oximetry 93 (u nits unknown) (unknown) (unknown) (no date) (unknown) (unknown) Pulse Rate 74 12/17/22 14:41 (units unknown) (unknown) (unknown) (no date) (unknown) (unknown) Pulse Rate 74 (units unknown) (unknown) (unknown) (no date) (unknown) (unknown) Pulse Rate [Ri ght Dorsalis Pedis] 63 (units unknown) (unknown) (unknown) (no date) (unknown) (unknown) Referrals: (units unknown) (unknown) (unknown) (no date) (unknown) (unknown) Related Data (units unknown) (unknown) (unknown) (no date) (unknown) (unknown) Respiratory Ra te 22 12/17/22 14:41 (units unknown) (unknown) (unknown) (no date) (unknown) (unknown) Respiratory Rate 22 (units unknown) (unknown) (unknown) (no date) (unknown) (unknown) Vanessa Krishnamurthy DO [Primary Care Provider] (units unknown) (unknown) (unknown) (no date) (unknown) (unknown) Signed By: (units unknown) (unknown) (unknown) (no date) (unknown) (unknown) Smoking Status : Never smoker (units unknown) (unknown) (unknown) (no date) (unknown) (unknown) Social History (units unknown) (unknown) (unknown) (no date) (unknown) (unknown) Source: patien t and EMS (units unknown) (unknown) (unknown) (no date) (unknown) (unknown) 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, incomplete (units unknown) (unknown) (unknown) (no date) (unknown) (unknown) Stated complai nt: Rt Leg Swelling (units unknown) (unknown) (unknown) (no date) (unknown) (unknown) Substance Use Type: does not use (units unknown) (unknown) (unknown) (no date) (unknown) (unknown) Surgical Histo ry (units unknown) (unknown) (unknown) (no date) (unknown) (unknown) Temperature 98 .1 F 12/17/22 14:41 (units unknown) (unknown) (unknown) (no date) (unknown) (unknown) Temperature 98.1 F ( units unknown) (unknown) (unknown) (no date) (unknown) (unknown) Time Seen by Provider: 12/17/22 14:35 (units unknown) (unknown) (unknown) (no date) (unknown) (unknown) US periph veno us low extrem bi Stat (units unknown) (unknown) (unknown) (no date) (unknown) (unknown) Vital Signs - 8 hr ( units unknown) (unknown) (unknown) (no date) (unknown) (unknown) Vital Signs (units unknown) (unknown) (unknown) (no date) (unknown) (unknown) Vital signs: (units unknown) (unknown) (unknown) (no date) (unknown) (unknown) aerosol inhale r (ProAir HFA) (units unknown) (unknown) (unknown) (no date) (unknown) (unknown) albuterol sulf ate 90 mcg/actuation 1 puff inhalation PRN PRN Wheezing 09/17/22 (units unknown) (unknown) (unknown) (no date) (unknown) (unknown) albuterol sulf ate [ProAir HFA] 90 mcg/actuation HFA aerosol inhaler (units unknown) (unknown) (unknown) (no date) (unknown) (unknown) amoxicillin 87 5 mg-potassium 1 tab PO BID #8 tabs 09/23/22 (units unknown) (unknown) (unknown) (no date) (unknown) (unknown) amoxicillin-po t clavulanate 875-125 mg Tablet (units unknown) (unknown) (unknown) (no date) (unknown) (unknown) and safety. 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, (units unknown) (unknown) (unknown) (no date) (unknown) (unknown) apixaban 2.5 m g tablet (Eliquis) 2.5 mg PO BID 09/17/22 09/17/22 (units unknown) (unknown) (unknown) (no date) (unknown) (unknown) atorvastatin 4 0 mg tablet 40 mg PO DAILY 09/17/22 09/17/22 (units unknown) (unknown) (unknown) (no date) (unknown) (unknown) atorvastatin 4 0 mg tablet (units unknown) (unknown) (unknown) (no date) (unknown) (unknown) carvedilol 25 mg tablet (Coreg) 25 mg PO BID ##0 04/14/12 09/17/22 (units unknown) (unknown) (unknown) (no date) (unknown) (unknown) carvedilol [Co reg] 25 MG tablet (units unknown) (unknown) (unknown) (no date) (unknown) (unknown) clavulanate 12 5 mg tablet (units unknown) (unknown) (unknown) (no date) (unknown) (unknown) collapse down to the floor. Patient did not hit his head. Patient denies any (units unknown) (unknown) (unknown) (no date) (unknown) (unknown) docusate sodiu m 100 mg Capsule (units unknown) (unknown) (unknown) (no date) (unknown) (unknown) docusate sodiu m 100 mg capsule 100 mg PO BID #60 caps 09/23/22 (units unknown) (unknown) (unknown) (no date) (unknown) (unknown) doing that at [facility] daily. Yesterday, patient states that he overload that (units unknown) (unknown) (unknown) (no date) (unknown) (unknown) feels comforta ble navigating this. Patient states he has no new symptoms today. (units unknown) (unknown) (unknown) (no date) (unknown) (unknown) gabapentin 600 mg tablet 600 mg PO TID 09/17/22 09/17/22 (units unknown) (unknown) (unknown) (no date) (unknown) (unknown) gabapentin 600 mg tablet (units unknown) (unknown) (unknown) (no date) (unknown) (unknown) him to the ED today for further evaluation due to concerns of lack of mobility (units unknown) (unknown) (unknown) (no date) (unknown) (unknown) his wheelchair breaks had not been applied, he tried to transfer into the (units unknown) (unknown) (unknown) (no date) (unknown) (unknown) hospitalized i n September 2022 for the decubitus ulcer, was discharged to [facility] (units unknown) (unknown) (unknown) (no date) (unknown) (unknown) household memb ers: spouse (units unknown) (unknown) (unknown) (no date) (unknown) (unknown) however patiangela t states that his baseline is that his right leg is more swollen (units unknown) (unknown) (unknown) (no date) (unknown) (unknown) hyperlipidemia , CAD, history of right leg DVT sent to the ED by his home health (units unknown) (unknown) (unknown) (no date) (unknown) (unknown) injuries from that incident. Patient lives in a multilevel home, has chair (units unknown) (unknown) (unknown) (no date) (unknown) (unknown) lidocaine 5 % Adhesive Patch,Medicated (units unknown) (unknown) (unknown) (no date) (unknown) (unknown) lidocaine 5 % adhesive patch,medicated (units unknown) (unknown) (unknown) (no date) (unknown) (unknown) lidocaine 5 % topical patch 1 ea topical DAILY #30 ea 09/23/22 (units unknown) (unknown) (unknown) (no date) (unknown) (unknown) lidocaine 5 % topical patch 1 patch transdermal Q12H PRN Pain, 09/17/22 09/17/22 (units unknown) (unknown) (unknown) (no date) (unknown) (unknown) lives that rehan es him from the garage to the main level, and another chair lift (units unknown) (unknown) (unknown) (no date) (unknown) (unknown) nurse due to c oncerns of lack of patient mobility and safety. Patient was (units unknown) (unknown) (unknown) (no date) (unknown) (unknown) nurse due to c oncerns of lack of patient mobility and safety. (units unknown) (unknown) (unknown) (no date) (unknown) (unknown) of the sacral region, CHF, MS stent x2, pacer on chronic Eliquis, hypertension, (units unknown) (unknown) (unknown) (no date) (unknown) (unknown) out of SNF fun ds. Patient was set up with a home health aide at home, who sent (units unknown) (unknown) (unknown) (no date) (unknown) (unknown) says he can tr ansfer from the bed to the wheelchair successfully and has been (units unknown) (unknown) (unknown) (no date) (unknown) (unknown) than the left and he has no new leg pain. (units unknown) (unknown) (unknown) (no date) (unknown) (unknown) the take some from the main level up to the 2nd floor where his bed is. Patient (units unknown) (unknown) (unknown) (no date) (unknown) (unknown) vomiting, abdo kaelyn pain, dysuria, lightheadedness, dizziness, syncope. (units unknown) (unknown) (unknown) (no date) (unknown) (unknown) wheelchair, [employer] sent the wheelchair rolling away from him, causing him to (units unknown) (unknown) (unknown) (no date) (unknown) (unknown) which is a SNF . Patient was discharged from [facility] back home due to running (units unknown) (unknown) Result panel 6 (unknown) (no date) (unknown) (unknown) (no value) (units unknown) (unknown) (unknown) (no date) (unknown) (unknown) 09/17/22 (units unknown) (unknown) (unknown) (no date) (unknown) (unknown) [id number] (units unknown) (unknown) (unknown) (no date) (unknown) (unknown) 12/17/22 16:41 (unit s unknown) (unknown) (unknown) (no date) (unknown) (unknown) 12/17/22 17:14 (unit s unknown) (unknown) (unknown) (no date) (unknown) (unknown) 12/17/22 (units unknown) (unknown) (unknown) (no date) (unknown) (unknown) 1 ea topical D AILY Qty: 30 0RF (units unknown) (unknown) (unknown) (no date) (unknown) (unknown) 1 patch transd ermal Q12H PRN (Reason: Pain, Mild) (units unknown) (unknown) (unknown) (no date) (unknown) (unknown) 1 puff INHALAT ION PRN PRN (Reason: Wheezing) (units unknown) (unknown) (unknown) (no date) (unknown) (unknown) 1 tab PO BID Q ty: 8 0RF (units unknown) (unknown) (unknown) (no date) (unknown) (unknown) 100 mg PO BID Qty: 60 0RF (units unknown) (unknown) (unknown) (no date) (unknown) (unknown) 14:41 12/17/22 (unit s unknown) (unknown) (unknown) (no date) (unknown) (unknown) 15:51 (units unknown) (unknown) (unknown) (no date) (unknown) (unknown) 2.5 mg PO BID (units unknown) (unknown) (unknown) (no date) (unknown) (unknown) 25 mg PO BID Qty: 0 (units unknown) (unknown) (unknown) (no date) (unknown) (unknown) 40 mg PO DAILY (unit s unknown) (unknown) (unknown) (no date) (unknown) (unknown) 600 mg PO TID (units unknown) (unknown) (unknown) (no date) (unknown) (unknown) 82-year-old ma le with past medical history spinal cord injury, decubitus ulcer (units unknown) (unknown) (unknown) (no date) (unknown) (unknown) Age/Sex: 82 / M (uni ts unknown) (unknown) (unknown) (no date) (unknown) (unknown) Allergies (units unknown) (unknown) (unknown) (no date) (unknown) (unknown) Allergy/AdvRea c Type Severity Reaction Status Date / Time (units unknown) (unknown) (unknown) (no date) (unknown) (unknown) Blood Pressure 131/73 12/17/22 14:41 (units unknown) (unknown) (unknown) (no date) (unknown) (unknown) Blood Pressure 131/7 3 (units unknown) (unknown) (unknown) (no date) (unknown) (unknown) Chief complain t: Extremity Problem,Nontraumatic (units unknown) (unknown) (unknown) (no date) (unknown) (unknown) Chronic anticoagulation (units unknown) (unknown) (unknown) (no date) (unknown) (unknown) Chronic indwel ling Hull catheter (units unknown) (unknown) (unknown) (no date) (unknown) (unknown) Congestive hea rt failure (units unknown) (unknown) (unknown) (no date) (unknown) (unknown) Consult to [facility] [place] [facility] [place] [employer] Stat (units unknown) (unknown) (unknown) (no date) (unknown) (unknown) Coronary arter y disease (units unknown) (unknown) (unknown) (no date) (unknown) (unknown) Course (units unknown) (unknown) (unknown) (no date) (unknown) (unknown) : 2 Acct:[id number] (units unknown) (unknown) (unknown) (no date) (unknown) (unknown) Date of Servic e: 12/17/22 (units unknown) (unknown) (unknown) (no date) (unknown) (unknown) Departure (units unknown) (unknown) (unknown) (no date) (unknown) (unknown) Discharge Plan (unit s unknown) (unknown) (unknown) (no date) (unknown) (unknown) ED Orders (units unknown) (unknown) (unknown) (no date) (unknown) (unknown) ER Physician: Deondre Murdock P.A-C (units unknown) (unknown) (unknown) (no date) (unknown) (unknown) Eliquis 2.5 mg table t (units unknown) (unknown) (unknown) (no date) (unknown) (unknown) Emergency Report (un its unknown) (unknown) (unknown) (no date) (unknown) (unknown) Exam (units unknown) (unknown) (unknown) (no date) (unknown) (unknown) Family History (units unknown) (unknown) (unknown) (no date) (unknown) (unknown) Father d Congestive heart failure (units unknown) (unknown) (unknown) (no date) (unknown) (unknown) General (units unknown) (unknown) (unknown) (no date) (unknown) (unknown) HPI - Extremit y Problem (units unknown) (unknown) (unknown) (no date) (unknown) (unknown) HPI Narrative: (unit s unknown) (unknown) (unknown) (no date) (unknown) (unknown) History of MS (myocardial infarction) (units unknown) (unknown) (unknown) (no date) (unknown) (unknown) History of Pre sent Illness (units unknown) (unknown) (unknown) (no date) (unknown) (unknown) History of cor onary artery stent placement (units unknown) (unknown) (unknown) (no date) (unknown) (unknown) History of laminectomy (units unknown) (unknown) (unknown) (no date) (unknown) (unknown) History of rig ht knee joint replacement (units unknown) (unknown) (unknown) (no date) (unknown) (unknown) Home Medications (un its unknown) (unknown) (unknown) (no date) (unknown) (unknown) Hyperlipidemia (unit s unknown) (unknown) (unknown) (no date) (unknown) (unknown) Hypertension (units unknown) (unknown) (unknown) (no date) (unknown) (unknown) Initial Vital Signs (units unknown) (unknown) (unknown) (no date) (unknown) (unknown) Initial Vital Signs: (units unknown) (unknown) (unknown) (no date) (unknown) (unknown) Intermittent self-catheterization of bladder (units unknown) (unknown) (unknown) (no date) (unknown) (unknown) [address] [address] (units unknown) (unknown) (unknown) (no date) (unknown) (unknown) MDM - Extremit y (Nontraumatic) (units unknown) (unknown) (unknown) (no date) (unknown) (unknown) MDM Narrative (units unknown) (unknown) (unknown) (no date) (unknown) (unknown) Medical Histor y (units unknown) (unknown) (unknown) (no date) (unknown) (unknown) Medical decisi on making narrative: (units unknown) (unknown) (unknown) (no date) (unknown) (unknown) Medication Instructions Recorded Confirmed (units unknown) (unknown) (unknown) (no date) (unknown) (unknown) Medication Instructions Recorded (units unknown) (unknown) (unknown) (no date) (unknown) (unknown) Mild (units unknown) (unknown) (unknown) (no date) (unknown) (unknown) Mode of arrival: EMS (units unknown) (unknown) (unknown) (no date) (unknown) (unknown) Mother d Cancer (units unknown) (unknown) (unknown) (no date) (unknown) (unknown) No Action (units unknown) (unknown) (unknown) (no date) (unknown) (unknown) No Known Drug Allergies Allergy Verified 09/16/22 17:38 (units unknown) (unknown) (unknown) (no date) (unknown) (unknown) Ordered: (units unknown) (unknown) (unknown) (no date) (unknown) (unknown) Orders (units unknown) (unknown) (unknown) (no date) (unknown) (unknown) Oxygen Deliver y Method Room Air 12/17/22 14:41 (units unknown) (unknown) (unknown) (no date) (unknown) (unknown) Oxygen Deliver y Method Room Air (units unknown) (unknown) (unknown) (no date) (unknown) (unknown) Pacemaker (units unknown) (unknown) (unknown) (no date) (unknown) (unknown) Paraplegic spi nal paralysis (units unknown) (unknown) (unknown) (no date) (unknown) (unknown) Patient History (uni ts unknown) (unknown) (unknown) (no date) (unknown) (unknown) Patient denies fever, chills, chest pain, shortness of breath, nausea, (units unknown) (unknown) (unknown) (no date) (unknown) (unknown) Patient's home health aide was also concerned about patient's leg swelling, (units unknown) (unknown) (unknown) (no date) (unknown) (unknown) Patient: [employer] MR#: [id number] (units unknown) (unknown) (unknown) (no date) (unknown) (unknown) Prescriptions: (unit s unknown) (unknown) (unknown) (no date) (unknown) (unknown) Previous Rx's (units unknown) (unknown) (unknown) (no date) (unknown) (unknown) Pulse Oximetry 93 12/17/22 14:41 (units unknown) (unknown) (unknown) (no date) (unknown) (unknown) Pulse Oximetry 93 (u nits unknown) (unknown) (unknown) (no date) (unknown) (unknown) Pulse Rate 74 12/17/22 14:41 (units unknown) (unknown) (unknown) (no date) (unknown) (unknown) Pulse Rate 74 (units unknown) (unknown) (unknown) (no date) (unknown) (unknown) Pulse Rate [Ri ght Dorsalis Pedis] 63 (units unknown) (unknown) (unknown) (no date) (unknown) (unknown) Referrals: (units unknown) (unknown) (unknown) (no date) (unknown) (unknown) Related Data (units unknown) (unknown) (unknown) (no date) (unknown) (unknown) Respiratory Ra te 22 12/17/22 14:41 (units unknown) (unknown) (unknown) (no date) (unknown) (unknown) Respiratory Rate 22 (units unknown) (unknown) (unknown) (no date) (unknown) (unknown) Vanessa Krishnamurthy DO [Primary Care Provider] (units unknown) (unknown) (unknown) (no date) (unknown) (unknown) Signed By: (units unknown) (unknown) (unknown) (no date) (unknown) (unknown) Smoking Status : Never smoker (units unknown) (unknown) (unknown) (no date) (unknown) (unknown) Social History (units unknown) (unknown) (unknown) (no date) (unknown) (unknown) Source: patien t and EMS (units unknown) (unknown) (unknown) (no date) (unknown) (unknown) Spinal cord in [facility], incomplete (units unknown) (unknown) (unknown) (no date) (unknown) (unknown) Stated complai nt: Rt Leg Swelling (units unknown) (unknown) (unknown) (no date) (unknown) (unknown) Substance Use Type: does not use (units unknown) (unknown) (unknown) (no date) (unknown) (unknown) Surgical Histo ry (units unknown) (unknown) (unknown) (no date) (unknown) (unknown) Temperature 98 .1 F 12/17/22 14:41 (units unknown) (unknown) (unknown) (no date) (unknown) (unknown) Temperature 98.1 F ( units unknown) (unknown) (unknown) (no date) (unknown) (unknown) Time Seen by Provider: 12/17/22 14:35 (units unknown) (unknown) (unknown) (no date) (unknown) (unknown) US periph veno us low extrem bi Stat (units unknown) (unknown) (unknown) (no date) (unknown) (unknown) Vital Signs - 8 hr ( units unknown) (unknown) (unknown) (no date) (unknown) (unknown) Vital Signs (units unknown) (unknown) (unknown) (no date) (unknown) (unknown) Vital signs: (units unknown) (unknown) (unknown) (no date) (unknown) (unknown) aerosol inhale r (ProAir HFA) (units unknown) (unknown) (unknown) (no date) (unknown) (unknown) albuterol sulf ate 90 mcg/actuation 1 puff inhalation PRN PRN Wheezing 09/17/22 (units unknown) (unknown) (unknown) (no date) (unknown) (unknown) albuterol sulf ate [ProAir HFA] 90 mcg/actuation HFA aerosol inhaler (units unknown) (unknown) (unknown) (no date) (unknown) (unknown) amoxicillin 87 5 mg-potassium 1 tab PO BID #8 tabs 09/23/22 (units unknown) (unknown) (unknown) (no date) (unknown) (unknown) amoxicillin-po t clavulanate 875-125 mg Tablet (units unknown) (unknown) (unknown) (no date) (unknown) (unknown) and safety. 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, (units unknown) (unknown) (unknown) (no date) (unknown) (unknown) apixaban 2.5 m g tablet (Eliquis) 2.5 mg PO BID 09/17/22 09/17/22 (units unknown) (unknown) (unknown) (no date) (unknown) (unknown) atorvastatin 4 0 mg tablet 40 mg PO DAILY 09/17/22 09/17/22 (units unknown) (unknown) (unknown) (no date) (unknown) (unknown) atorvastatin 4 0 mg tablet (units unknown) (unknown) (unknown) (no date) (unknown) (unknown) carvedilol 25 mg tablet (Coreg) 25 mg PO BID ##0 04/14/12 09/17/22 (units unknown) (unknown) (unknown) (no date) (unknown) (unknown) carvedilol [Co reg] 25 MG tablet (units unknown) (unknown) (unknown) (no date) (unknown) (unknown) clavulanate 12 5 mg tablet (units unknown) (unknown) (unknown) (no date) (unknown) (unknown) collapse down to the floor. Patient did not hit his head. Patient denies any (units unknown) (unknown) (unknown) (no date) (unknown) (unknown) docusate sodiu m 100 mg Capsule (units unknown) (unknown) (unknown) (no date) (unknown) (unknown) docusate sodiu m 100 mg capsule 100 mg PO BID #60 caps 09/23/22 (units unknown) (unknown) (unknown) (no date) (unknown) (unknown) doing that at [facility] daily. Yesterday, patient states that he overload that (units unknown) (unknown) (unknown) (no date) (unknown) (unknown) feels comforta ble navigating this. Patient states he has no new symptoms today. (units unknown) (unknown) (unknown) (no date) (unknown) (unknown) gabapentin 600 mg tablet 600 mg PO TID 09/17/22 09/17/22 (units unknown) (unknown) (unknown) (no date) (unknown) (unknown) gabapentin 600 mg tablet (units unknown) (unknown) (unknown) (no date) (unknown) (unknown) him to the ED today for further evaluation due to concerns of lack of mobility (units unknown) (unknown) (unknown) (no date) (unknown) (unknown) his wheelchair breaks had not been applied, he tried to transfer into the (units unknown) (unknown) (unknown) (no date) (unknown) (unknown) hospitalized i n September 2022 for the decubitus ulcer, was discharged to [facility] (units unknown) (unknown) (unknown) (no date) (unknown) (unknown) household memb ers: spouse (units unknown) (unknown) (unknown) (no date) (unknown) (unknown) however bety t states that his baseline is that his right leg is more swollen (units unknown) (unknown) (unknown) (no date) (unknown) (unknown) hyperlipidemia , CAD, history of right leg DVT sent to the ED by his home health (units unknown) (unknown) (unknown) (no date) (unknown) (unknown) injuries from that incident. Patient lives in a multilevel home, has chair (units unknown) (unknown) (unknown) (no date) (unknown) (unknown) lidocaine 5 % Adhesive Patch,Medicated (units unknown) (unknown) (unknown) (no date) (unknown) (unknown) lidocaine 5 % adhesive patch,medicated (units unknown) (unknown) (unknown) (no date) (unknown) (unknown) lidocaine 5 % topical patch 1 ea topical DAILY #30 ea 09/23/22 (units unknown) (unknown) (unknown) (no date) (unknown) (unknown) lidocaine 5 % topical patch 1 patch transdermal Q12H PRN Pain, 09/17/22 09/17/22 (units unknown) (unknown) (unknown) (no date) (unknown) (unknown) lives that rehan es him from the garage to the main level, and another chair lift (units unknown) (unknown) (unknown) (no date) (unknown) (unknown) nurse due to c oncerns of lack of patient mobility and safety. Patient was (units unknown) (unknown) (unknown) (no date) (unknown) (unknown) nurse due to c oncerns of lack of patient mobility and safety. (units unknown) (unknown) (unknown) (no date) (unknown) (unknown) of the sacral region, CHF, MS stent x2, pacer on chronic Eliquis, hypertension, (units unknown) (unknown) (unknown) (no date) (unknown) (unknown) out of SNF fun ds. Patient was set up with a home health aide at home, who sent (units unknown) (unknown) (unknown) (no date) (unknown) (unknown) says he can tr ansfer from the bed to the wheelchair successfully and has been (units unknown) (unknown) (unknown) (no date) (unknown) (unknown) than the left and he has no new leg pain. (units unknown) (unknown) (unknown) (no date) (unknown) (unknown) the take some from the main level up to the 2nd floor where his bed is. Patient (units unknown) (unknown) (unknown) (no date) (unknown) (unknown) vomiting, abdo kaelyn pain, dysuria, lightheadedness, dizziness, syncope. (units unknown) (unknown) (unknown) (no date) (unknown) (unknown) wheelchair, [employer] sent the wheelchair rolling away from him, causing him to (units unknown) (unknown) (unknown) (no date) (unknown) (unknown) which is a SNF . Patient was discharged from [facility] back home due to running (units unknown) (unknown) Result panel 7 (unknown) (no date) (unknown) (unknown) (no value) (units unknown) (unknown) (unknown) (no date) (unknown) (unknown) 09/17/22 (units unknown) (unknown) (unknown) (no date) (unknown) (unknown) [id number] (units unknown) (unknown) (unknown) (no date) (unknown) (unknown) 12/17/22 16:41 (unit s unknown) (unknown) (unknown) (no date) (unknown) (unknown) 12/17/22 17:14 (unit s unknown) (unknown) (unknown) (no date) (unknown) (unknown) 12/17/22 (units unknown) (unknown) (unknown) (no date) (unknown) (unknown) 1 ea topical D AILY Qty: 30 0RF (units unknown) (unknown) (unknown) (no date) (unknown) (unknown) 1 patch transd ermal Q12H PRN (Reason: Pain, Mild) (units unknown) (unknown) (unknown) (no date) (unknown) (unknown) 1 puff INHALAT ION PRN PRN (Reason: Wheezing) (units unknown) (unknown) (unknown) (no date) (unknown) (unknown) 1 tab PO BID Q ty: 8 0RF (units unknown) (unknown) (unknown) (no date) (unknown) (unknown) 100 mg PO BID Qty: 60 0RF (units unknown) (unknown) (unknown) (no date) (unknown) (unknown) 14:41 12/17/22 (unit s unknown) (unknown) (unknown) (no date) (unknown) (unknown) 15:51 (units unknown) (unknown) (unknown) (no date) (unknown) (unknown) 2.5 mg PO BID (units unknown) (unknown) (unknown) (no date) (unknown) (unknown) 25 mg PO BID Qty: 0 (units unknown) (unknown) (unknown) (no date) (unknown) (unknown) 40 mg PO DAILY (unit s unknown) (unknown) (unknown) (no date) (unknown) (unknown) 600 mg PO TID (units unknown) (unknown) (unknown) (no date) (unknown) (unknown) 82-year-old ma le with past medical history spinal cord injury, decubitus ulcer (units unknown) (unknown) (unknown) (no date) (unknown) (unknown) Age/Sex: 82 / M (uni ts unknown) (unknown) (unknown) (no date) (unknown) (unknown) Allergic/Immunologic (units unknown) (unknown) (unknown) (no date) (unknown) (unknown) Allergic/Immun ologic: Denies urticaria, Denies throat swelling and Denies (units unknown) (unknown) (unknown) (no date) (unknown) (unknown) Allergies (units unknown) (unknown) (unknown) (no date) (unknown) (unknown) Allergy/AdvRea c Type Severity Reaction Status Date / Time (units unknown) (unknown) (unknown) (no date) (unknown) (unknown) Auscultation:? clear to auscultation bilaterally (units unknown) (unknown) (unknown) (no date) (unknown) (unknown) Blood Pressure 131/73 12/17/22 14:41 (units unknown) (unknown) (unknown) (no date) (unknown) (unknown) Blood Pressure 131/7 3 (units unknown) (unknown) (unknown) (no date) (unknown) (unknown) Cardio (units unknown) (unknown) (unknown) (no date) (unknown) (unknown) Cardiovascular (unit s unknown) (unknown) (unknown) (no date) (unknown) (unknown) Cardiovascular : Denies chest pain, Denies irregular heart rhythm, Denies (units unknown) (unknown) (unknown) (no date) (unknown) (unknown) Chief complain t: Extremity Problem,Nontraumatic (units unknown) (unknown) (unknown) (no date) (unknown) (unknown) Chronic anticoagulation (units unknown) (unknown) (unknown) (no date) (unknown) (unknown) Chronic indwel ling Hull catheter (units unknown) (unknown) (unknown) (no date) (unknown) (unknown) Comments: (units unknown) (unknown) (unknown) (no date) (unknown) (unknown) Congestive hea rt failure (units unknown) (unknown) (unknown) (no date) (unknown) (unknown) Const (units unknown) (unknown) (unknown) (no date) (unknown) (unknown) Constitutional (unit s unknown) (unknown) (unknown) (no date) (unknown) (unknown) Constitutional : Denies chills, Denies fatigue, Denies fever(s), Denies frequent (units unknown) (unknown) (unknown) (no date) (unknown) (unknown) Consult [place] [facility] - [place] [employer] Stat (units unknown) (unknown) (unknown) (no date) (unknown) (unknown) Coronary arter y disease (units unknown) (unknown) (unknown) (no date) (unknown) (unknown) Course (units unknown) (unknown) (unknown) (no date) (unknown) (unknown) : 2 Acct:[id number] (units unknown) (unknown) (unknown) (no date) (unknown) (unknown) Date of Servic e: 12/17/22 (units unknown) (unknown) (unknown) (no date) (unknown) (unknown) Denies frequen t falls, Denies loss of vision, Denies numbness, Denies tingling (units unknown) (unknown) (unknown) (no date) (unknown) (unknown) Denies loss of visio n (units unknown) (unknown) (unknown) (no date) (unknown) (unknown) Denies numbnes s and Denies tingling (units unknown) (unknown) (unknown) (no date) (unknown) (unknown) Departure (units unknown) (unknown) (unknown) (no date) (unknown) (unknown) Discharge Plan (unit s unknown) (unknown) (unknown) (no date) (unknown) (unknown) ED Orders (units unknown) (unknown) (unknown) (no date) (unknown) (unknown) ENT (units unknown) (unknown) (unknown) (no date) (unknown) (unknown) ER Physician: Deondre MurdockAMiller (units unknown) (unknown) (unknown) (no date) (unknown) (unknown) Ears, Nose, Mo uth, and Throat: Denies change in voice, Denies dizziness, Denies (units unknown) (unknown) (unknown) (no date) (unknown) (unknown) Ears:?hearing grossly normal bilaterally (units unknown) (unknown) (unknown) (no date) (unknown) (unknown) Effort + Inspection:?normal respiratory effort (units unknown) (unknown) (unknown) (no date) (unknown) (unknown) Eliquis 2.5 mg table t (units unknown) (unknown) (unknown) (no date) (unknown) (unknown) Emergency Report (un its unknown) (unknown) (unknown) (no date) (unknown) (unknown) Endocrine (units unknown) (unknown) (unknown) (no date) (unknown) (unknown) Endocrine: Den ies fatigue, Denies flushing and Denies palpitations (units unknown) (unknown) (unknown) (no date) (unknown) (unknown) Exam Narrative: (uni ts unknown) (unknown) (unknown) (no date) (unknown) (unknown) Exam (units unknown) (unknown) (unknown) (no date) (unknown) (unknown) Eyes (units unknown) (unknown) (unknown) (no date) (unknown) (unknown) Eyes: Denies c hange in vision, Denies eye discharge, Denies irritation and (units unknown) (unknown) (unknown) (no date) (unknown) (unknown) Face and sinus:?normal facial exam and sinuses nontender (units unknown) (unknown) (unknown) (no date) (unknown) (unknown) Family History (units unknown) (unknown) (unknown) (no date) (unknown) (unknown) Father d Congestive heart failure (units unknown) (unknown) (unknown) (no date) (unknown) (unknown) Gastrointestinal (un its unknown) (unknown) (unknown) (no date) (unknown) (unknown) Gastrointestin al: Denies abdominal pain, Denies change in bowel habits, Denies (units unknown) (unknown) (unknown) (no date) (unknown) (unknown) General (units unknown) (unknown) (unknown) (no date) (unknown) (unknown) General:?appea vanessa normal, both eyes and all related structures (units unknown) (unknown) (unknown) (no date) (unknown) (unknown) General:?coope rative, healthy appearing and comfortable (units unknown) (unknown) (unknown) (no date) (unknown) (unknown) General:?patie nt alert, patient awake and patient oriented x3 (units unknown) (unknown) (unknown) (no date) (unknown) (unknown) Genitourinary (units unknown) (unknown) (unknown) (no date) (unknown) (unknown) Genitourinary: Denies hematuria, Denies flank pain, Denies urinary incontinence (units unknown) (unknown) (unknown) (no date) (unknown) (unknown) HENMT (units unknown) (unknown) (unknown) (no date) (unknown) (unknown) HPI - Extremit y Problem (units unknown) (unknown) (unknown) (no date) (unknown) (unknown) HPI Narrative: (unit s unknown) (unknown) (unknown) (no date) (unknown) (unknown) Head:?normal t o inspection (units unknown) (unknown) (unknown) (no date) (unknown) (unknown) Hematologic/Lymphati c (units unknown) (unknown) (unknown) (no date) (unknown) (unknown) Hematologic/Ly mphatic : Denies easy bruising (units unknown) (unknown) (unknown) (no date) (unknown) (unknown) History of MS (myocardial infarction) (units unknown) (unknown) (unknown) (no date) (unknown) (unknown) History of Pre sent Illness (units unknown) (unknown) (unknown) (no date) (unknown) (unknown) History of cor onary artery stent placement (units unknown) (unknown) (unknown) (no date) (unknown) (unknown) History of laminectomy (units unknown) (unknown) (unknown) (no date) (unknown) (unknown) History of rig ht knee joint replacement (units unknown) (unknown) (unknown) (no date) (unknown) (unknown) Home Medications (un its unknown) (unknown) (unknown) (no date) (unknown) (unknown) Hyperlipidemia (unit s unknown) (unknown) (unknown) (no date) (unknown) (unknown) Hypertension (units unknown) (unknown) (unknown) (no date) (unknown) (unknown) Initial Vital Signs (units unknown) (unknown) (unknown) (no date) (unknown) (unknown) Initial Vital Signs: (units unknown) (unknown) (unknown) (no date) (unknown) (unknown) Integumentary/Breast s (units unknown) (unknown) (unknown) (no date) (unknown) (unknown) Intermittent self-catheterization of bladder (units unknown) (unknown) (unknown) (no date) (unknown) (unknown) [place] [address] (units unknown) (unknown) (unknown) (no date) (unknown) (unknown) MDM - Extremit y (Nontraumatic) (units unknown) (unknown) (unknown) (no date) (unknown) (unknown) MDM Narrative (units unknown) (unknown) (unknown) (no date) (unknown) (unknown) Medical Histor y (units unknown) (unknown) (unknown) (no date) (unknown) (unknown) Medical decisi on making narrative: (units unknown) (unknown) (unknown) (no date) (unknown) (unknown) Medical record s reviewed: Yes (units unknown) (unknown) (unknown) (no date) (unknown) (unknown) Medication Instructions Recorded Confirmed (units unknown) (unknown) (unknown) (no date) (unknown) (unknown) Medication Instructions Recorded (units unknown) (unknown) (unknown) (no date) (unknown) (unknown) Mild (units unknown) (unknown) (unknown) (no date) (unknown) (unknown) Mode of arrival: EMS (units unknown) (unknown) (unknown) (no date) (unknown) (unknown) Mother d Cancer (units unknown) (unknown) (unknown) (no date) (unknown) (unknown) Mouth:?oral mu cosae normal (units unknown) (unknown) (unknown) (no date) (unknown) (unknown) Musculoskeletal (uni ts unknown) (unknown) (unknown) (no date) (unknown) (unknown) Musculoskeleta l: Denies back pain, Denies muscle weakness, Denies neck pain, (units unknown) (unknown) (unknown) (no date) (unknown) (unknown) Narrative (units unknown) (unknown) (unknown) (no date) (unknown) (unknown) Neck (units unknown) (unknown) (unknown) (no date) (unknown) (unknown) Neck:?normal v isual inspection and no lymphadenopathy noted (units unknown) (unknown) (unknown) (no date) (unknown) (unknown) Neuro (units unknown) (unknown) (unknown) (no date) (unknown) (unknown) Neurologic (units unknown) (unknown) (unknown) (no date) (unknown) (unknown) Neurologic: De nies behavioral changes, Denies confusion, Denies dizziness, (units unknown) (unknown) (unknown) (no date) (unknown) (unknown) No Action (units unknown) (unknown) (unknown) (no date) (unknown) (unknown) No Known Drug Allergies Allergy Verified 09/16/22 17:38 (units unknown) (unknown) (unknown) (no date) (unknown) (unknown) Nose:?external nose normal (units unknown) (unknown) (unknown) (no date) (unknown) (unknown) Ordered: (units unknown) (unknown) (unknown) (no date) (unknown) (unknown) Orders (units unknown) (unknown) (unknown) (no date) (unknown) (unknown) Oxygen Deliver y Method Room Air 12/17/22 14:41 (units unknown) (unknown) (unknown) (no date) (unknown) (unknown) Oxygen Deliver y Method Room Air (units unknown) (unknown) (unknown) (no date) (unknown) (unknown) Pacemaker (units unknown) (unknown) (unknown) (no date) (unknown) (unknown) Paraplegic spi nal paralysis (units unknown) (unknown) (unknown) (no date) (unknown) (unknown) Patient History (uni ts unknown) (unknown) (unknown) (no date) (unknown) (unknown) Patient denies fever, chills, chest pain, shortness of breath, nausea, (units unknown) (unknown) (unknown) (no date) (unknown) (unknown) Patient's home health aide was also concerned about patient's leg swelling, (units unknown) (unknown) (unknown) (no date) (unknown) (unknown) Patient: [employer] Sunshine MR#: [id number] (units unknown) (unknown) (unknown) (no date) (unknown) (unknown) Prescriptions: (unit s unknown) (unknown) (unknown) (no date) (unknown) (unknown) Previous Rx's (units unknown) (unknown) (unknown) (no date) (unknown) (unknown) Psychiatric (units unknown) (unknown) (unknown) (no date) (unknown) (unknown) Psychiatric: D enies anxiety, Denies behavioral changes, Denies confusion, Denies (units unknown) (unknown) (unknown) (no date) (unknown) (unknown) Pulse Oximetry 93 12/17/22 14:41 (units unknown) (unknown) (unknown) (no date) (unknown) (unknown) Pulse Oximetry 93 (u nits unknown) (unknown) (unknown) (no date) (unknown) (unknown) Pulse Rate 74 12/17/22 14:41 (units unknown) (unknown) (unknown) (no date) (unknown) (unknown) Pulse Rate 74 (units unknown) (unknown) (unknown) (no date) (unknown) (unknown) Pulse Rate [Ri ght Dorsalis Pedis] 63 (units unknown) (unknown) (unknown) (no date) (unknown) (unknown) ROS Unobtainab le: All systems reviewed + are unremarkable except as noted in HPI (units unknown) (unknown) (unknown) (no date) (unknown) (unknown) Rate:?regular rate ( units unknown) (unknown) (unknown) (no date) (unknown) (unknown) Referrals: (units unknown) (unknown) (unknown) (no date) (unknown) (unknown) Related Data (units unknown) (unknown) (unknown) (no date) (unknown) (unknown) Resp (units unknown) (unknown) (unknown) (no date) (unknown) (unknown) Respiratory Ra te 22 12/17/22 14:41 (units unknown) (unknown) (unknown) (no date) (unknown) (unknown) Respiratory Rate 22 (units unknown) (unknown) (unknown) (no date) (unknown) (unknown) Respiratory (units unknown) (unknown) (unknown) (no date) (unknown) (unknown) Respiratory: D enies cough, Denies dyspnea, Denies dyspnea on exertion and Denies (units unknown) (unknown) (unknown) (no date) (unknown) (unknown) Review of Systems (u nits unknown) (unknown) (unknown) (no date) (unknown) (unknown) Rhythm:?regula r rhythm (units unknown) (unknown) (unknown) (no date) (unknown) (unknown) Vanessa Krishnamurthy DO [Primary Care Provider] (units unknown) (unknown) (unknown) (no date) (unknown) (unknown) Signed By: (units unknown) (unknown) (unknown) (no date) (unknown) (unknown) Skin/Breast: D enies pruritus, Denies erythema, Denies rash and Denies wounds (units unknown) (unknown) (unknown) (no date) (unknown) (unknown) Smoking Status : Never smoker (units unknown) (unknown) (unknown) (no date) (unknown) (unknown) Social History (units unknown) (unknown) (unknown) (no date) (unknown) (unknown) Source: patien t and EMS (units unknown) (unknown) (unknown) (no date) (unknown) (unknown) 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, incomplete (units unknown) (unknown) (unknown) (no date) (unknown) (unknown) Stated complai nt: Rt Leg Swelling (units unknown) (unknown) (unknown) (no date) (unknown) (unknown) Substance Use Type: does not use (units unknown) (unknown) (unknown) (no date) (unknown) (unknown) Surgical Histo ry (units unknown) (unknown) (unknown) (no date) (unknown) (unknown) Temperature 98 .1 F 12/17/22 14:41 (units unknown) (unknown) (unknown) (no date) (unknown) (unknown) Temperature 98.1 F ( units unknown) (unknown) (unknown) (no date) (unknown) (unknown) 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 ior oropharynx normal (units unknown) (unknown) (unknown) (no date) (unknown) (unknown) Time Seen by Provider: 12/17/22 14:35 (units unknown) (unknown) (unknown) (no date) (unknown) (unknown) US periph veno us low extrem bi Stat (units unknown) (unknown) (unknown) (no date) (unknown) (unknown) Vital Signs - 8 hr ( units unknown) (unknown) (unknown) (no date) (unknown) (unknown) Vital Signs (units unknown) (unknown) (unknown) (no date) (unknown) (unknown) Vital signs: (units unknown) (unknown) (unknown) (no date) (unknown) (unknown) aerosol inhale r (ProAir HFA) (units unknown) (unknown) (unknown) (no date) (unknown) (unknown) albuterol sulf ate 90 mcg/actuation 1 puff inhalation PRN PRN Wheezing 09/17/22 (units unknown) (unknown) (unknown) (no date) (unknown) (unknown) albuterol sulf ate [ProAir HFA] 90 mcg/actuation HFA aerosol inhaler (units unknown) (unknown) (unknown) (no date) (unknown) (unknown) amoxicillin 87 5 mg-potassium 1 tab PO BID #8 tabs 09/23/22 (units unknown) (unknown) (unknown) (no date) (unknown) (unknown) amoxicillin-po t clavulanate 875-125 mg Tablet (units unknown) (unknown) (unknown) (no date) (unknown) (unknown) and Denies orthopnea (units unknown) (unknown) (unknown) (no date) (unknown) (unknown) and Denies uri nary urgency (units unknown) (unknown) (unknown) (no date) (unknown) (unknown) and Denies weakness (units unknown) (unknown) (unknown) (no date) (unknown) (unknown) and below (units unknown) (unknown) (unknown) (no date) (unknown) (unknown) and safety. 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, (units unknown) (unknown) (unknown) (no date) (unknown) (unknown) apixaban 2.5 m g tablet (Eliquis) 2.5 mg PO BID 09/17/22 09/17/22 (units unknown) (unknown) (unknown) (no date) (unknown) (unknown) atorvastatin 4 0 mg tablet 40 mg PO DAILY 09/17/22 09/17/22 (units unknown) (unknown) (unknown) (no date) (unknown) (unknown) atorvastatin 4 0 mg tablet (units unknown) (unknown) (unknown) (no date) (unknown) (unknown) carvedilol 25 mg tablet (Coreg) 25 mg PO BID ##0 04/14/12 09/17/22 (units unknown) (unknown) (unknown) (no date) (unknown) (unknown) carvedilol [Co reg] 25 MG tablet (units unknown) (unknown) (unknown) (no date) (unknown) (unknown) changes. Heather nt has been stable throughout the ED stay. Social work was (units unknown) (unknown) (unknown) (no date) (unknown) (unknown) clavulanate 12 5 mg tablet (units unknown) (unknown) (unknown) (no date) (unknown) (unknown) collapse down to the floor. Patient did not hit his head. Patient denies any (units unknown) (unknown) (unknown) (no date) (unknown) (unknown) depression, De nies homicidal ideation and Denies suicidal ideation (units unknown) (unknown) (unknown) (no date) (unknown) (unknown) diarrhea, Scott es nausea and Denies vomiting (units unknown) (unknown) (unknown) (no date) (unknown) (unknown) docusate sodiu m 100 mg Capsule (units unknown) (unknown) (unknown) (no date) (unknown) (unknown) docusate sodiu m 100 mg capsule 100 mg PO BID #60 caps 09/23/22 (units unknown) (unknown) (unknown) (no date) (unknown) (unknown) doing that at [facility] daily. Yesterday, patient states that he overload that (units unknown) (unknown) (unknown) (no date) (unknown) (unknown) falls, Denies lethargy and Denies weakness (units unknown) (unknown) (unknown) (no date) (unknown) (unknown) feels comforta ble navigating this. Patient states he has no new symptoms today. (units unknown) (unknown) (unknown) (no date) (unknown) (unknown) gabapentin 600 mg tablet 600 mg PO TID 09/17/22 09/17/22 (units unknown) (unknown) (unknown) (no date) (unknown) (unknown) gabapentin 600 mg tablet (units unknown) (unknown) (unknown) (no date) (unknown) (unknown) him to the ED today for further evaluation due to concerns of lack of mobility (units unknown) (unknown) (unknown) (no date) (unknown) (unknown) his wheelchair breaks had not been applied, he tried to transfer into the (units unknown) (unknown) (unknown) (no date) (unknown) (unknown) home with some extra home help that social work has arranged. ED return (units unknown) (unknown) (unknown) (no date) (unknown) (unknown) hospitalized i n September 2022 for the decubitus ulcer, was discharged to [facility] (units unknown) (unknown) (unknown) (no date) (unknown) (unknown) household memb ers: spouse (units unknown) (unknown) (unknown) (no date) (unknown) (unknown) however bety t states that his baseline is that his right leg is more swollen (units unknown) (unknown) (unknown) (no date) (unknown) (unknown) hyperlipidemia , CAD, history of right leg DVT sent to the ED by his home health (units unknown) (unknown) (unknown) (no date) (unknown) (unknown) indication for further intervention at this time other than regular dressing (units unknown) (unknown) (unknown) (no date) (unknown) (unknown) injuries from that incident. Patient lives in a multilevel home, has chair (units unknown) (unknown) (unknown) (no date) (unknown) (unknown) involved, maikel ent and patient's feel comfortable with patient returning (units unknown) (unknown) (unknown) (no date) (unknown) (unknown) lidocaine 5 % Adhesive Patch,Medicated (units unknown) (unknown) (unknown) (no date) (unknown) (unknown) lidocaine 5 % adhesive patch,medicated (units unknown) (unknown) (unknown) (no date) (unknown) (unknown) lidocaine 5 % topical patch 1 ea topical DAILY #30 ea 09/23/22 (units unknown) (unknown) (unknown) (no date) (unknown) (unknown) lidocaine 5 % topical patch 1 patch transdermal Q12H PRN Pain, 09/17/22 09/17/22 (units unknown) (unknown) (unknown) (no date) (unknown) (unknown) lightheadednes s, Denies palpitations, Denies dyspnea, Denies dyspnea on exertion (units unknown) (unknown) (unknown) (no date) (unknown) (unknown) lives that rehan es him from the garage to the main level, and another chair lift (units unknown) (unknown) (unknown) (no date) (unknown) (unknown) lower extremit ies shows no DVTs. The ulcer seems to be well cared for, no (units unknown) (unknown) (unknown) (no date) (unknown) (unknown) neck pain, Den ies sore throat and Denies throat swelling (units unknown) (unknown) (unknown) (no date) (unknown) (unknown) nurse due to c oncerns of lack of patient mobility and safety. Given no new (units unknown) (unknown) (unknown) (no date) (unknown) (unknown) nurse due to c oncerns of lack of patient mobility and safety. Patient was (units unknown) (unknown) (unknown) (no date) (unknown) (unknown) of the sacral region, CHF, MS stent x2, pacer on chronic Eliquis, hypertension, (units unknown) (unknown) (unknown) (no date) (unknown) (unknown) out of SNF fun ds. Patient was set up with a home health aide at home, who sent (units unknown) (unknown) (unknown) (no date) (unknown) (unknown) precautions we re discussed with patient. Patient verbalized understanding. (units unknown) (unknown) (unknown) (no date) (unknown) (unknown) says he can tr ansfer from the bed to the wheelchair successfully and has been (units unknown) (unknown) (unknown) (no date) (unknown) (unknown) symptoms, will rule out DVT due to history of DVTs. Ultrasound Doppler of the (units unknown) (unknown) (unknown) (no date) (unknown) (unknown) than the left and he has no new leg pain. (units unknown) (unknown) (unknown) (no date) (unknown) (unknown) the take some from the main level up to the 2nd floor where his bed is. Patient (units unknown) (unknown) (unknown) (no date) (unknown) (unknown) vomiting, abdo kaelyn pain, dysuria, lightheadedness, dizziness, syncope. (units unknown) (unknown) (unknown) (no date) (unknown) (unknown) wheelchair bound (un its unknown) (unknown) (unknown) (no date) (unknown) (unknown) wheelchair, [employer] sent the wheelchair rolling away from him, causing him to (units unknown) (unknown) (unknown) (no date) (unknown) (unknown) wheezing (units unknown) (unknown) (unknown) (no date) (unknown) (unknown) which is a SNF . Patient was discharged from [facility] back home due to running (units unknown) (unknown) Result panel 8 (unknown) (no date) (unknown) (unknown) (no value) (units unknown) (unknown) (unknown) (no date) (unknown) (unknown) 09/17/22 (units unknown) (unknown) (unknown) (no date) (unknown) (unknown) [id number] (units unknown) (unknown) (unknown) (no date) (unknown) (unknown) 12/17/22 16:41 (unit s unknown) (unknown) (unknown) (no date) (unknown) (unknown) 12/17/22 17:14 (unit s unknown) (unknown) (unknown) (no date) (unknown) (unknown) 12/17/22 (units unknown) (unknown) (unknown) (no date) (unknown) (unknown) 1 ea topical D AILY Qty: 30 0RF (units unknown) (unknown) (unknown) (no date) (unknown) (unknown) 1 patch transd ermal Q12H PRN (Reason: Pain, Mild) (units unknown) (unknown) (unknown) (no date) (unknown) (unknown) 1 puff INHALAT ION PRN PRN (Reason: Wheezing) (units unknown) (unknown) (unknown) (no date) (unknown) (unknown) 1 tab PO BID Q ty: 8 0RF (units unknown) (unknown) (unknown) (no date) (unknown) (unknown) 100 mg PO BID Qty: 60 0RF (units unknown) (unknown) (unknown) (no date) (unknown) (unknown) 14:41 12/17/22 (unit s unknown) (unknown) (unknown) (no date) (unknown) (unknown) 15:51 (units unknown) (unknown) (unknown) (no date) (unknown) (unknown) 2.5 mg PO BID (units unknown) (unknown) (unknown) (no date) (unknown) (unknown) 25 mg PO BID Qty: 0 (units unknown) (unknown) (unknown) (no date) (unknown) (unknown) 40 mg PO DAILY (unit s unknown) (unknown) (unknown) (no date) (unknown) (unknown) 5 cm x 5 cm gr daniel 3 sacral decubitus ulcer with no purulence, slight serous (units unknown) (unknown) (unknown) (no date) (unknown) (unknown) 600 mg PO TID (units unknown) (unknown) (unknown) (no date) (unknown) (unknown) 82-year-old ma le with past medical history spinal cord injury, decubitus ulcer (units unknown) (unknown) (unknown) (no date) (unknown) (unknown) Age/Sex: 82 / M (uni ts unknown) (unknown) (unknown) (no date) (unknown) (unknown) Allergic/Immunologic (units unknown) (unknown) (unknown) (no date) (unknown) (unknown) Allergic/Immun ologic: Denies urticaria, Denies throat swelling and Denies (units unknown) (unknown) (unknown) (no date) (unknown) (unknown) Allergies (units unknown) (unknown) (unknown) (no date) (unknown) (unknown) Allergy/AdvRea c Type Severity Reaction Status Date / Time (units unknown) (unknown) (unknown) (no date) (unknown) (unknown) Auscultation:? clear to auscultation bilaterally (units unknown) (unknown) (unknown) (no date) (unknown) (unknown) Blood Pressure 131/73 12/17/22 14:41 (units unknown) (unknown) (unknown) (no date) (unknown) (unknown) Blood Pressure 131/7 3 (units unknown) (unknown) (unknown) (no date) (unknown) (unknown) Cardio (units unknown) (unknown) (unknown) (no date) (unknown) (unknown) Cardiovascular (unit s unknown) (unknown) (unknown) (no date) (unknown) (unknown) Cardiovascular : Denies chest pain, Denies irregular heart rhythm, Denies (units unknown) (unknown) (unknown) (no date) (unknown) (unknown) Chief complain t: Extremity Problem,Nontraumatic (units unknown) (unknown) (unknown) (no date) (unknown) (unknown) Chronic anticoagulation (units unknown) (unknown) (unknown) (no date) (unknown) (unknown) Chronic indwel ling Hull catheter (units unknown) (unknown) (unknown) (no date) (unknown) (unknown) Comments: (units unknown) (unknown) (unknown) (no date) (unknown) (unknown) Congestive hea rt failure (units unknown) (unknown) (unknown) (no date) (unknown) (unknown) Const (units unknown) (unknown) (unknown) (no date) (unknown) (unknown) Constitutional (unit s unknown) (unknown) (unknown) (no date) (unknown) (unknown) Constitutional : Denies chills, Denies fatigue, Denies fever(s), Denies frequent (units unknown) (unknown) (unknown) (no date) (unknown) (unknown) Consult to [facility] [place] [employer] Stat (units unknown) (unknown) (unknown) (no date) (unknown) (unknown) Coronary arter y disease (units unknown) (unknown) (unknown) (no date) (unknown) (unknown) Course (units unknown) (unknown) (unknown) (no date) (unknown) (unknown) : 2 Acct:[id number] (units unknown) (unknown) (unknown) (no date) (unknown) (unknown) Date of Servic e: 12/17/22 (units unknown) (unknown) (unknown) (no date) (unknown) (unknown) Denies frequen t falls, Denies loss of vision, Denies numbness, Denies tingling (units unknown) (unknown) (unknown) (no date) (unknown) (unknown) Denies loss of visio n (units unknown) (unknown) (unknown) (no date) (unknown) (unknown) Denies numbnes s and Denies tingling (units unknown) (unknown) (unknown) (no date) (unknown) (unknown) Departure (units unknown) (unknown) (unknown) (no date) (unknown) (unknown) Discharge Plan (unit s unknown) (unknown) (unknown) (no date) (unknown) (unknown) ED Orders (units unknown) (unknown) (unknown) (no date) (unknown) (unknown) ENT (units unknown) (unknown) (unknown) (no date) (unknown) (unknown) ER Physician: Mathieu,Hyma P.A-C (units unknown) (unknown) (unknown) (no date) (unknown) (unknown) Ears, Nose, Mo uth, and Throat: Denies change in voice, Denies dizziness, Denies (units unknown) (unknown) (unknown) (no date) (unknown) (unknown) Ears:?hearing grossly normal bilaterally (units unknown) (unknown) (unknown) (no date) (unknown) (unknown) Effort + Inspection:?normal respiratory effort (units unknown) (unknown) (unknown) (no date) (unknown) (unknown) Eliquis 2.5 mg table t (units unknown) (unknown) (unknown) (no date) (unknown) (unknown) Emergency Report (un its unknown) (unknown) (unknown) (no date) (unknown) (unknown) Endocrine (units unknown) (unknown) (unknown) (no date) (unknown) (unknown) Endocrine: Den ies fatigue, Denies flushing and Denies palpitations (units unknown) (unknown) (unknown) (no date) (unknown) (unknown) Exam Narrative: (uni ts unknown) (unknown) (unknown) (no date) (unknown) (unknown) Exam (units unknown) (unknown) (unknown) (no date) (unknown) (unknown) Eyes (units unknown) (unknown) (unknown) (no date) (unknown) (unknown) Eyes: Denies c hange in vision, Denies eye discharge, Denies irritation and (units unknown) (unknown) (unknown) (no date) (unknown) (unknown) Face and sinus:?normal facial exam and sinuses nontender (units unknown) (unknown) (unknown) (no date) (unknown) (unknown) Family History (units unknown) (unknown) (unknown) (no date) (unknown) (unknown) Father d Congestive heart failure (units unknown) (unknown) (unknown) (no date) (unknown) (unknown) Gastrointestinal (un its unknown) (unknown) (unknown) (no date) (unknown) (unknown) Gastrointestin al: Denies abdominal pain, Denies change in bowel habits, Denies (units unknown) (unknown) (unknown) (no date) (unknown) (unknown) General (units unknown) (unknown) (unknown) (no date) (unknown) (unknown) General:?appea vanessa normal, both eyes and all related structures (units unknown) (unknown) (unknown) (no date) (unknown) (unknown) General:?coope rative, healthy appearing and comfortable (units unknown) (unknown) (unknown) (no date) (unknown) (unknown) General:?patie nt alert, patient awake and patient oriented x3 (units unknown) (unknown) (unknown) (no date) (unknown) (unknown) Genitourinary (units unknown) (unknown) (unknown) (no date) (unknown) (unknown) Genitourinary: Denies hematuria, Denies flank pain, Denies urinary incontinence (units unknown) (unknown) (unknown) (no date) (unknown) (unknown) HENMT (units unknown) (unknown) (unknown) (no date) (unknown) (unknown) HPI - Extremit y Problem (units unknown) (unknown) (unknown) (no date) (unknown) (unknown) HPI Narrative: (unit s unknown) (unknown) (unknown) (no date) (unknown) (unknown) Head:?normal t o inspection (units unknown) (unknown) (unknown) (no date) (unknown) (unknown) Hematologic/Lymphati c (units unknown) (unknown) (unknown) (no date) (unknown) (unknown) Hematologic/Ly mphatic : Denies easy bruising (units unknown) (unknown) (unknown) (no date) (unknown) (unknown) History of MS (myocardial infarction) (units unknown) (unknown) (unknown) (no date) (unknown) (unknown) History of Pre sent Illness (units unknown) (unknown) (unknown) (no date) (unknown) (unknown) History of cor onary artery stent placement (units unknown) (unknown) (unknown) (no date) (unknown) (unknown) History of laminectomy (units unknown) (unknown) (unknown) (no date) (unknown) (unknown) History of rig ht knee joint replacement (units unknown) (unknown) (unknown) (no date) (unknown) (unknown) Home Medications (un its unknown) (unknown) (unknown) (no date) (unknown) (unknown) Hyperlipidemia (unit s unknown) (unknown) (unknown) (no date) (unknown) (unknown) Hypertension (units unknown) (unknown) (unknown) (no date) (unknown) (unknown) Initial Vital Signs (units unknown) (unknown) (unknown) (no date) (unknown) (unknown) Initial Vital Signs: (units unknown) (unknown) (unknown) (no date) (unknown) (unknown) Integumentary (units unknown) (unknown) (unknown) (no date) (unknown) (unknown) Integumentary/Breast s (units unknown) (unknown) (unknown) (no date) (unknown) (unknown) Intermittent self-catheterization of bladder (units unknown) (unknown) (unknown) (no date) (unknown) (unknown) [address] [address] (units unknown) (unknown) (unknown) (no date) (unknown) (unknown) MDM - Extremit y (Nontraumatic) (units unknown) (unknown) (unknown) (no date) (unknown) (unknown) MDM Narrative (units unknown) (unknown) (unknown) (no date) (unknown) (unknown) Medical Histor y (units unknown) (unknown) (unknown) (no date) (unknown) (unknown) Medical decisi on making narrative: (units unknown) (unknown) (unknown) (no date) (unknown) (unknown) Medical record s reviewed: Yes (units unknown) (unknown) (unknown) (no date) (unknown) (unknown) Medication Instructions Recorded Confirmed (units unknown) (unknown) (unknown) (no date) (unknown) (unknown) Medication Instructions Recorded (units unknown) (unknown) (unknown) (no date) (unknown) (unknown) Mild (units unknown) (unknown) (unknown) (no date) (unknown) (unknown) Mode of arrival: EMS (units unknown) (unknown) (unknown) (no date) (unknown) (unknown) Mother d Cancer (units unknown) (unknown) (unknown) (no date) (unknown) (unknown) Mouth:?oral mu cosae normal (units unknown) (unknown) (unknown) (no date) (unknown) (unknown) Musculoskeletal (uni ts unknown) (unknown) (unknown) (no date) (unknown) (unknown) Musculoskeleta l: Denies back pain, Denies muscle weakness, Denies neck pain, (units unknown) (unknown) (unknown) (no date) (unknown) (unknown) Narrative (units unknown) (unknown) (unknown) (no date) (unknown) (unknown) Neck (units unknown) (unknown) (unknown) (no date) (unknown) (unknown) Neck:?normal v isual inspection and no lymphadenopathy noted (units unknown) (unknown) (unknown) (no date) (unknown) (unknown) Neuro (units unknown) (unknown) (unknown) (no date) (unknown) (unknown) Neurologic (units unknown) (unknown) (unknown) (no date) (unknown) (unknown) Neurologic: De nies behavioral changes, Denies confusion, Denies dizziness, (units unknown) (unknown) (unknown) (no date) (unknown) (unknown) No Action (units unknown) (unknown) (unknown) (no date) (unknown) (unknown) No Known Drug Allergies Allergy Verified 09/16/22 17:38 (units unknown) (unknown) (unknown) (no date) (unknown) (unknown) Nose:?external nose normal (units unknown) (unknown) (unknown) (no date) (unknown) (unknown) Ordered: (units unknown) (unknown) (unknown) (no date) (unknown) (unknown) Orders (units unknown) (unknown) (unknown) (no date) (unknown) (unknown) Oxygen Deliver y Method Room Air 12/17/22 14:41 (units unknown) (unknown) (unknown) (no date) (unknown) (unknown) Oxygen Deliver y Method Room Air (units unknown) (unknown) (unknown) (no date) (unknown) (unknown) Pacemaker (units unknown) (unknown) (unknown) (no date) (unknown) (unknown) Paraplegic spi nal paralysis (units unknown) (unknown) (unknown) (no date) (unknown) (unknown) Patient History (uni ts unknown) (unknown) (unknown) (no date) (unknown) (unknown) Patient denies fever, chills, chest pain, shortness of breath, nausea, (units unknown) (unknown) (unknown) (no date) (unknown) (unknown) Patient's home health aide was also concerned about patient's leg swelling, (units unknown) (unknown) (unknown) (no date) (unknown) (unknown) Patient: [employer] MR#: [id number] (units unknown) (unknown) (unknown) (no date) (unknown) (unknown) Prescriptions: (unit s unknown) (unknown) (unknown) (no date) (unknown) (unknown) Previous Rx's (units unknown) (unknown) (unknown) (no date) (unknown) (unknown) Psychiatric (units unknown) (unknown) (unknown) (no date) (unknown) (unknown) Psychiatric: D enies anxiety, Denies behavioral changes, Denies confusion, Denies (units unknown) (unknown) (unknown) (no date) (unknown) (unknown) Pulse Oximetry 93 12/17/22 14:41 (units unknown) (unknown) (unknown) (no date) (unknown) (unknown) Pulse Oximetry 93 (u nits unknown) (unknown) (unknown) (no date) (unknown) (unknown) Pulse Rate 74 12/17/22 14:41 (units unknown) (unknown) (unknown) (no date) (unknown) (unknown) Pulse Rate 74 (units unknown) (unknown) (unknown) (no date) (unknown) (unknown) Pulse Rate [Ri ght Dorsalis Pedis] 63 (units unknown) (unknown) (unknown) (no date) (unknown) (unknown) ROS Unobtainab le: All systems reviewed + are unremarkable except as noted in HPI (units unknown) (unknown) (unknown) (no date) (unknown) (unknown) Rate:?regular rate ( units unknown) (unknown) (unknown) (no date) (unknown) (unknown) Referrals: (units unknown) (unknown) (unknown) (no date) (unknown) (unknown) Related Data (units unknown) (unknown) (unknown) (no date) (unknown) (unknown) Resp (units unknown) (unknown) (unknown) (no date) (unknown) (unknown) Respiratory Ra te 22 12/17/22 14:41 (units unknown) (unknown) (unknown) (no date) (unknown) (unknown) Respiratory Rate 22 (units unknown) (unknown) (unknown) (no date) (unknown) (unknown) Respiratory (units unknown) (unknown) (unknown) (no date) (unknown) (unknown) Respiratory: D enies cough, Denies dyspnea, Denies dyspnea on exertion and Denies (units unknown) (unknown) (unknown) (no date) (unknown) (unknown) Review of Systems (u nits unknown) (unknown) (unknown) (no date) (unknown) (unknown) Rhythm:?regula r rhythm (units unknown) (unknown) (unknown) (no date) (unknown) (unknown) Right leg appe ars slightly more swollen than the left, which is baseline per (units unknown) (unknown) (unknown) (no date) (unknown) (unknown) Vanessa Krishnamurthy DO [Primary Care Provider] (units unknown) (unknown) (unknown) (no date) (unknown) (unknown) Signed By: (units unknown) (unknown) (unknown) (no date) (unknown) (unknown) Skin/Breast: D enies pruritus, Denies erythema, Denies rash and Denies wounds (units unknown) (unknown) (unknown) (no date) (unknown) (unknown) Smoking Status : Never smoker (units unknown) (unknown) (unknown) (no date) (unknown) (unknown) Social History (units unknown) (unknown) (unknown) (no date) (unknown) (unknown) Source: patien t and EMS (units unknown) (unknown) (unknown) (no date) (unknown) (unknown) 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, incomplete (units unknown) (unknown) (unknown) (no date) (unknown) (unknown) Stated complai nt: Rt Leg Swelling (units unknown) (unknown) (unknown) (no date) (unknown) (unknown) Substance Use Type: does not use (units unknown) (unknown) (unknown) (no date) (unknown) (unknown) Surgical Histo ry (units unknown) (unknown) (unknown) (no date) (unknown) (unknown) Temperature 98 .1 F 12/17/22 14:41 (units unknown) (unknown) (unknown) (no date) (unknown) (unknown) Temperature 98.1 F ( units unknown) (unknown) (unknown) (no date) (unknown) (unknown) 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 oropharynx normal (units unknown) (unknown) (unknown) (no date) (unknown) (unknown) Time Seen by Provider: 12/17/22 14:35 (units unknown) (unknown) (unknown) (no date) (unknown) (unknown) US periph veno us low extrem bi Stat (units unknown) (unknown) (unknown) (no date) (unknown) (unknown) Vital Signs - 8 hr ( units unknown) (unknown) (unknown) (no date) (unknown) (unknown) Vital Signs (units unknown) (unknown) (unknown) (no date) (unknown) (unknown) Vital signs: (units unknown) (unknown) (unknown) (no date) (unknown) (unknown) aerosol inhale r (ProAir HFA) (units unknown) (unknown) (unknown) (no date) (unknown) (unknown) albuterol sulf ate 90 mcg/actuation 1 puff inhalation PRN PRN Wheezing 09/17/22 (units unknown) (unknown) (unknown) (no date) (unknown) (unknown) albuterol sulf ate [ProAir HFA] 90 mcg/actuation HFA aerosol inhaler (units unknown) (unknown) (unknown) (no date) (unknown) (unknown) amoxicillin 87 5 mg-potassium 1 tab PO BID #8 tabs 09/23/22 (units unknown) (unknown) (unknown) (no date) (unknown) (unknown) amoxicillin-po t clavulanate 875-125 mg Tablet (units unknown) (unknown) (unknown) (no date) (unknown) (unknown) and Denies orthopnea (units unknown) (unknown) (unknown) (no date) (unknown) (unknown) and Denies uri nary urgency (units unknown) (unknown) (unknown) (no date) (unknown) (unknown) and Denies weakness (units unknown) (unknown) (unknown) (no date) (unknown) (unknown) and below (units unknown) (unknown) (unknown) (no date) (unknown) (unknown) and safety. 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 patient home. ED return precautions were discussed with (units unknown) (unknown) (unknown) (no date) (unknown) (unknown) atorvastatin 4 0 mg tablet 40 mg PO DAILY 09/17/22 09/17/22 (units unknown) (unknown) (unknown) (no date) (unknown) (unknown) atorvastatin 4 0 mg tablet (units unknown) (unknown) (unknown) (no date) (unknown) (unknown) carvedilol 25 mg tablet (Coreg) 25 mg PO BID ##0 04/14/12 09/17/22 (units unknown) (unknown) (unknown) (no date) (unknown) (unknown) carvedilol [Co reg] 25 MG tablet (units unknown) (unknown) (unknown) (no date) (unknown) (unknown) changes. Heather nt has been stable throughout the ED stay. Social work was (units unknown) (unknown) (unknown) (no date) (unknown) (unknown) clavulanate 12 5 mg tablet (units unknown) (unknown) (unknown) (no date) (unknown) (unknown) collapse down to the floor. Patient did not hit his head. Patient denies any (units unknown) (unknown) (unknown) (no date) (unknown) (unknown) depression, De nies homicidal ideation and Denies suicidal ideation (units unknown) (unknown) (unknown) (no date) (unknown) (unknown) diarrhea, Scott es nausea and Denies vomiting (units unknown) (unknown) (unknown) (no date) (unknown) (unknown) discharge. Sg willard appears to have been well taken care of and recently dressed. (units unknown) (unknown) (unknown) (no date) (unknown) (unknown) docusate sodiu m 100 mg Capsule (units unknown) (unknown) (unknown) (no date) (unknown) (unknown) docusate sodiu m 100 mg capsule 100 mg PO BID #60 caps 09/23/22 (units unknown) (unknown) (unknown) (no date) (unknown) (unknown) doing that at [facility] daily. Yesterday, patient states that he overload that (units unknown) (unknown) (unknown) (no date) (unknown) (unknown) falls, Denies lethargy and Denies weakness (units unknown) (unknown) (unknown) (no date) (unknown) (unknown) feels comforta ble navigating this. Patient states he has no new symptoms today. (units unknown) (unknown) (unknown) (no date) (unknown) (unknown) gabapentin 600 mg tablet 600 mg PO TID 09/17/22 09/17/22 (units unknown) (unknown) (unknown) (no date) (unknown) (unknown) gabapentin 600 mg tablet (units unknown) (unknown) (unknown) (no date) (unknown) (unknown) him to the ED today for further evaluation due to concerns of lack of mobility (units unknown) (unknown) (unknown) (no date) (unknown) (unknown) his wheelchair breaks had not been applied, he tried to transfer into the (units unknown) (unknown) (unknown) (no date) (unknown) (unknown) home with some extra home help that social work has arranged. BLS transport (units unknown) (unknown) (unknown) (no date) (unknown) (unknown) hospitalized i n September 2022 for the decubitus ulcer, was discharged to [facility] (units unknown) (unknown) (unknown) (no date) (unknown) (unknown) household memb ers: spouse (units unknown) (unknown) (unknown) (no date) (unknown) (unknown) however patien t states that his baseline is that his right leg is more swollen (units unknown) (unknown) (unknown) (no date) (unknown) (unknown) hyperlipidemia , CAD, history of right leg DVT sent to the ED by his home health (units unknown) (unknown) (unknown) (no date) (unknown) (unknown) indication for further intervention at this time other than regular dressing (units unknown) (unknown) (unknown) (no date) (unknown) (unknown) injuries from that incident. Patient lives in a multilevel home, has chair (units unknown) (unknown) (unknown) (no date) (unknown) (unknown) involved, maikel ent and patient's feel comfortable with patient returning (units unknown) (unknown) (unknown) (no date) (unknown) (unknown) lidocaine 5 % Adhesive Patch,Medicated (units unknown) (unknown) (unknown) (no date) (unknown) (unknown) lidocaine 5 % adhesive patch,medicated (units unknown) (unknown) (unknown) (no date) (unknown) (unknown) lidocaine 5 % topical patch 1 ea topical DAILY #30 ea 09/23/22 (units unknown) (unknown) (unknown) (no date) (unknown) (unknown) lidocaine 5 % topical patch 1 patch transdermal Q12H PRN Pain, 09/17/22 09/17/22 (units unknown) (unknown) (unknown) (no date) (unknown) (unknown) lightheadednes s, Denies palpitations, Denies dyspnea, Denies dyspnea on exertion (units unknown) (unknown) (unknown) (no date) (unknown) (unknown) lives that rehan es him from the garage to the main level, and another chair lift (units unknown) (unknown) (unknown) (no date) (unknown) (unknown) lower extremit ies shows no DVTs. The ulcer seems to be well cared for, no (units unknown) (unknown) (unknown) (no date) (unknown) (unknown) neck pain, Den ies sore throat and Denies throat swelling (units unknown) (unknown) (unknown) (no date) (unknown) (unknown) nurse due to c oncerns of lack of patient mobility and safety. Given no new (units unknown) (unknown) (unknown) (no date) (unknown) (unknown) nurse due to c oncerns of lack of patient mobility and safety. Patient was (units unknown) (unknown) (unknown) (no date) (unknown) (unknown) of the sacral region, CHF, MS stent x2, pacer on chronic Eliquis, hypertension, (units unknown) (unknown) (unknown) (no date) (unknown) (unknown) out of SNF fun ds. Patient was set up with a home health aide at home, who sent (units unknown) (unknown) (unknown) (no date) (unknown) (unknown) patient. Heather trinidad verbalized understanding. (units unknown) (unknown) (unknown) (no date) (unknown) (unknown) patient. (units unknown) (unknown) (unknown) (no date) (unknown) (unknown) says he can tr ansfer from the bed to the wheelchair successfully and has been (units unknown) (unknown) (unknown) (no date) (unknown) (unknown) symptoms, will rule out DVT due to history of DVTs. Ultrasound Doppler of the (units unknown) (unknown) (unknown) (no date) (unknown) (unknown) than the left and he has no new leg pain. (units unknown) (unknown) (unknown) (no date) (unknown) (unknown) the take some from the main level up to the 2nd floor where his bed is. Patient (units unknown) (unknown) (unknown) (no date) (unknown) (unknown) vomiting, abdo kaelyn pain, dysuria, lightheadedness, dizziness, syncope. (units unknown) (unknown) (unknown) (no date) (unknown) (unknown) wheelchair bound (un its unknown) (unknown) (unknown) (no date) (unknown) (unknown) wheelchair, osito sent the wheelchair rolling away from him, causing him to (units unknown) (unknown) (unknown) (no date) (unknown) (unknown) wheezing (units unknown) (unknown) (unknown) (no date) (unknown) (unknown) which is a SNF . Patient was discharged from [facility] back home due to running (units unknown) (unknown) Result panel 9 (unknown) (no date) (unknown) (unknown) (no value) (units unknown) (unknown) (unknown) (no date) (unknown) (unknown) <Electronicall y signed by Deondre Murdock> (units unknown) (unknown) (unknown) (no date) (unknown) (unknown) <Electronicall y signed by Black Castano D.O.> (units unknown) (unknown) (unknown) (no date) (unknown) (unknown) <Electronicall y signed by Black Castano D.O.> (units unknown) (unknown) (unknown) (no date) (unknown) (unknown) <Vanessa Vazquez - Last Filed: 12/17/22 18:50> (units unknown) (unknown) (unknown) (no date) (unknown) (unknown) <Black malik DO - Last Filed: 12/17/22 18:51> (units unknown) (unknown) (unknown) (no date) (unknown) (unknown) <cosigner> (units unknown) (unknown) (unknown) (no date) (unknown) (unknown) 09/17/22 (units unknown) (unknown) (unknown) (no date) (unknown) (unknown) [id number] (units unknown) (unknown) (unknown) (no date) (unknown) (unknown) 12/17/22 16:41 (unit s unknown) (unknown) (unknown) (no date) (unknown) (unknown) 12/17/22 17:14 (unit s unknown) (unknown) (unknown) (no date) (unknown) (unknown) 12/17/221849 (units unknown) (unknown) (unknown) (no date) (unknown) (unknown) 12/17/221850 (units unknown) (unknown) (unknown) (no date) (unknown) (unknown) 12/17/22 (units unknown) (unknown) (unknown) (no date) (unknown) (unknown) 1 ea topical D AILY Qty: 30 0RF (units unknown) (unknown) (unknown) (no date) (unknown) (unknown) 1 patch transd ermal Q12H PRN (Reason: Pain, Mild) (units unknown) (unknown) (unknown) (no date) (unknown) (unknown) 1 puff INHALAT ION PRN PRN (Reason: Wheezing) (units unknown) (unknown) (unknown) (no date) (unknown) (unknown) 1 tab PO BID Q ty: 8 0RF (units unknown) (unknown) (unknown) (no date) (unknown) (unknown) 100 mg PO BID Qty: 60 0RF (units unknown) (unknown) (unknown) (no date) (unknown) (unknown) 14:41 12/17/22 (unit s unknown) (unknown) (unknown) (no date) (unknown) (unknown) 15:51 (units unknown) (unknown) (unknown) (no date) (unknown) (unknown) 2.5 mg PO BID (units unknown) (unknown) (unknown) (no date) (unknown) (unknown) 25 mg PO BID Qty: 0 (units unknown) (unknown) (unknown) (no date) (unknown) (unknown) 40 mg PO DAILY (unit s unknown) (unknown) (unknown) (no date) (unknown) (unknown) 5 cm x 5 cm gr daniel 3 sacral decubitus ulcer with no purulence, slight serous (units unknown) (unknown) (unknown) (no date) (unknown) (unknown) 600 mg PO TID (units unknown) (unknown) (unknown) (no date) (unknown) (unknown) 82-year-old ma le with past medical history spinal cord injury, decubitus ulcer (units unknown) (unknown) (unknown) (no date) (unknown) (unknown) Activity Restrictions/Addition al Instructions: (units unknown) (unknown) (unknown) (no date) (unknown) (unknown) Age/Sex: 82 / M (uni ts unknown) (unknown) (unknown) (no date) (unknown) (unknown) Allergic/Immunologic (units unknown) (unknown) (unknown) (no date) (unknown) (unknown) Allergic/Immun ologic: Denies urticaria, Denies throat swelling and Denies (units unknown) (unknown) (unknown) (no date) (unknown) (unknown) Allergies (units unknown) (unknown) (unknown) (no date) (unknown) (unknown) Allergy/AdvRea c Type Severity Reaction Status Date / Time (units unknown) (unknown) (unknown) (no date) (unknown) (unknown) Auscultation:? clear to auscultation bilaterally (units unknown) (unknown) (unknown) (no date) (unknown) (unknown) Blood Pressure 131/73 12/17/22 14:41 (units unknown) (unknown) (unknown) (no date) (unknown) (unknown) Blood Pressure 131/7 3 (units unknown) (unknown) (unknown) (no date) (unknown) (unknown) Cardio (units unknown) (unknown) (unknown) (no date) (unknown) (unknown) Cardiovascular (unit s unknown) (unknown) (unknown) (no date) (unknown) (unknown) Cardiovascular : Denies chest pain, Denies irregular heart rhythm, Denies (units unknown) (unknown) (unknown) (no date) (unknown) (unknown) Chief complain t: Extremity Problem,Nontraumatic (units unknown) (unknown) (unknown) (no date) (unknown) (unknown) Chronic anticoagulation (units unknown) (unknown) (unknown) (no date) (unknown) (unknown) Chronic indwel ling Hull catheter (units unknown) (unknown) (unknown) (no date) (unknown) (unknown) Clinical Impression: (units unknown) (unknown) (unknown) (no date) (unknown) (unknown) Comments: (units unknown) (unknown) (unknown) (no date) (unknown) (unknown) Congestive hea rt failure (units unknown) (unknown) (unknown) (no date) (unknown) (unknown) Const (units unknown) (unknown) (unknown) (no date) (unknown) (unknown) Constitutional (unit s unknown) (unknown) (unknown) (no date) (unknown) (unknown) Constitutional : Denies chills, Denies fatigue, Denies fever(s), Denies frequent (units unknown) (unknown) (unknown) (no date) (unknown) (unknown) Consult to [facility] [facility] - [place] [employer] Stat (units unknown) (unknown) (unknown) (no date) (unknown) (unknown) Coronary arter y disease (units unknown) (unknown) (unknown) (no date) (unknown) (unknown) Cosign (units unknown) (unknown) (unknown) (no date) (unknown) (unknown) Course (units unknown) (unknown) (unknown) (no date) (unknown) (unknown) : 2 Acct:[id number] (units unknown) (unknown) (unknown) (no date) (unknown) (unknown) Date of Servic e: 12/17/22 (units unknown) (unknown) (unknown) (no date) (unknown) (unknown) Denies frequen t falls, Denies loss of vision, Denies numbness, Denies tingling (units unknown) (unknown) (unknown) (no date) (unknown) (unknown) Denies loss of visio n (units unknown) (unknown) (unknown) (no date) (unknown) (unknown) Denies numbnes s and Denies tingling (units unknown) (unknown) (unknown) (no date) (unknown) (unknown) Departure (units unknown) (unknown) (unknown) (no date) (unknown) (unknown) Discharge Plan (unit s unknown) (unknown) (unknown) (no date) (unknown) (unknown) Dr Castano Co-S ign Statement: I was available for consultation during this (units unknown) (unknown) (unknown) (no date) (unknown) (unknown) ED Attending Cosignature Attestation: (units unknown) (unknown) (unknown) (no date) (unknown) (unknown) ED Orders (units unknown) (unknown) (unknown) (no date) (unknown) (unknown) ENT (units unknown) (unknown) (unknown) (no date) (unknown) (unknown) ER Physician: Deondre MurdockAMiller (units unknown) (unknown) (unknown) (no date) (unknown) (unknown) Ears, Nose, Mo uth, and Throat: Denies change in voice, Denies dizziness, Denies (units unknown) (unknown) (unknown) (no date) (unknown) (unknown) Ears:?hearing grossly normal bilaterally (units unknown) (unknown) (unknown) (no date) (unknown) (unknown) Effort + Inspection:?normal respiratory effort (units unknown) (unknown) (unknown) (no date) (unknown) (unknown) Eliquis 2.5 mg table t (units unknown) (unknown) (unknown) (no date) (unknown) (unknown) Emergency Report (un its unknown) (unknown) (unknown) (no date) (unknown) (unknown) Endocrine (units unknown) (unknown) (unknown) (no date) (unknown) (unknown) Endocrine: Den ies fatigue, Denies flushing and Denies palpitations (units unknown) (unknown) (unknown) (no date) (unknown) (unknown) Exam Narrative: (uni ts unknown) (unknown) (unknown) (no date) (unknown) (unknown) Exam (units unknown) (unknown) (unknown) (no date) (unknown) (unknown) Eyes (units unknown) (unknown) (unknown) (no date) (unknown) (unknown) Eyes: Denies c hange in vision, Denies eye discharge, Denies irritation and (units unknown) (unknown) (unknown) (no date) (unknown) (unknown) Face and sinus:?normal facial exam and sinuses nontender (units unknown) (unknown) (unknown) (no date) (unknown) (unknown) Family History (units unknown) (unknown) (unknown) (no date) (unknown) (unknown) Father d Congestive heart failure (units unknown) (unknown) (unknown) (no date) (unknown) (unknown) Gastrointestinal (un its unknown) (unknown) (unknown) (no date) (unknown) (unknown) Gastrointestin al: Denies abdominal pain, Denies change in bowel habits, Denies (units unknown) (unknown) (unknown) (no date) (unknown) (unknown) General (units unknown) (unknown) (unknown) (no date) (unknown) (unknown) General:?appea vanessa normal, both eyes and all related structures (units unknown) (unknown) (unknown) (no date) (unknown) (unknown) General:?coope rative, healthy appearing and comfortable (units unknown) (unknown) (unknown) (no date) (unknown) (unknown) General:?patie nt alert, patient awake and patient oriented x3 (units unknown) (unknown) (unknown) (no date) (unknown) (unknown) Genitourinary (units unknown) (unknown) (unknown) (no date) (unknown) (unknown) Genitourinary: Denies hematuria, Denies flank pain, Denies urinary incontinence (units unknown) (unknown) (unknown) (no date) (unknown) (unknown) HENMT (units unknown) (unknown) (unknown) (no date) (unknown) (unknown) HPI - Extremit y Problem (units unknown) (unknown) (unknown) (no date) (unknown) (unknown) HPI Narrative: (unit s unknown) (unknown) (unknown) (no date) (unknown) (unknown) Head:?normal t o inspection (units unknown) (unknown) (unknown) (no date) (unknown) (unknown) Hematologic/Lymphati c (units unknown) (unknown) (unknown) (no date) (unknown) (unknown) Hematologic/Ly mphatic : Denies easy bruising (units unknown) (unknown) (unknown) (no date) (unknown) (unknown) History of MS (myocardial infarction) (units unknown) (unknown) (unknown) (no date) (unknown) (unknown) History of Pre sent Illness (units unknown) (unknown) (unknown) (no date) (unknown) (unknown) History of cor onary artery stent placement (units unknown) (unknown) (unknown) (no date) (unknown) (unknown) History of laminectomy (units unknown) (unknown) (unknown) (no date) (unknown) (unknown) History of rig ht knee joint replacement (units unknown) (unknown) (unknown) (no date) (unknown) (unknown) Home Medications (un its unknown) (unknown) (unknown) (no date) (unknown) (unknown) Hyperlipidemia (unit s unknown) (unknown) (unknown) (no date) (unknown) (unknown) Hypertension (units unknown) (unknown) (unknown) (no date) (unknown) (unknown) Initial Vital Signs (units unknown) (unknown) (unknown) (no date) (unknown) (unknown) Initial Vital Signs: (units unknown) (unknown) (unknown) (no date) (unknown) (unknown) Instructions: DI for Leg Pain (units unknown) (unknown) (unknown) (no date) (unknown) (unknown) Integumentary (units unknown) (unknown) (unknown) (no date) (unknown) (unknown) Integumentary/Breast s (units unknown) (unknown) (unknown) (no date) (unknown) (unknown) Intermittent self-catheterization of bladder (units unknown) (unknown) (unknown) (no date) (unknown) (unknown) [address] [address] (units unknown) (unknown) (unknown) (no date) (unknown) (unknown) Leg swelling (units unknown) (unknown) (unknown) (no date) (unknown) (unknown) MDM - Extremit y (Nontraumatic) (units unknown) (unknown) (unknown) (no date) (unknown) (unknown) MDM Narrative (units unknown) (unknown) (unknown) (no date) (unknown) (unknown) Medical Histor y (units unknown) (unknown) (unknown) (no date) (unknown) (unknown) Medical decisi on making narrative: (units unknown) (unknown) (unknown) (no date) (unknown) (unknown) Medical record s reviewed: Yes (units unknown) (unknown) (unknown) (no date) (unknown) (unknown) Medication Instructions Recorded Confirmed (units unknown) (unknown) (unknown) (no date) (unknown) (unknown) Medication Instructions Recorded (units unknown) (unknown) (unknown) (no date) (unknown) (unknown) Mild (units unknown) (unknown) (unknown) (no date) (unknown) (unknown) Mode of arrival: EMS (units unknown) (unknown) (unknown) (no date) (unknown) (unknown) Mother d Cancer (units unknown) (unknown) (unknown) (no date) (unknown) (unknown) Mouth:?oral mu cosae normal (units unknown) (unknown) (unknown) (no date) (unknown) (unknown) Musculoskeletal (uni ts unknown) (unknown) (unknown) (no date) (unknown) (unknown) Musculoskeleta l: Denies back pain, Denies muscle weakness, Denies neck pain, (units unknown) (unknown) (unknown) (no date) (unknown) (unknown) Narrative (units unknown) (unknown) (unknown) (no date) (unknown) (unknown) Neck (units unknown) (unknown) (unknown) (no date) (unknown) (unknown) Neck:?normal v isual inspection and no lymphadenopathy noted (units unknown) (unknown) (unknown) (no date) (unknown) (unknown) Neuro (units unknown) (unknown) (unknown) (no date) (unknown) (unknown) Neurologic (units unknown) (unknown) (unknown) (no date) (unknown) (unknown) Neurologic: De nies behavioral changes, Denies confusion, Denies dizziness, (units unknown) (unknown) (unknown) (no date) (unknown) (unknown) No Action (units unknown) (unknown) (unknown) (no date) (unknown) (unknown) No Known Drug Allergies Allergy Verified 09/16/22 17:38 (units unknown) (unknown) (unknown) (no date) (unknown) (unknown) Nose:?external nose normal (units unknown) (unknown) (unknown) (no date) (unknown) (unknown) Ordered: (units unknown) (unknown) (unknown) (no date) (unknown) (unknown) Orders (units unknown) (unknown) (unknown) (no date) (unknown) (unknown) Oxygen Deliver y Method Room Air 12/17/22 14:41 (units unknown) (unknown) (unknown) (no date) (unknown) (unknown) Oxygen Deliver y Method Room Air (units unknown) (unknown) (unknown) (no date) (unknown) (unknown) Pacemaker (units unknown) (unknown) (unknown) (no date) (unknown) (unknown) Paraplegic spi nal paralysis (units unknown) (unknown) (unknown) (no date) (unknown) (unknown) Patient Dispos ition: Home (units unknown) (unknown) (unknown) (no date) (unknown) (unknown) Patient History (uni ts unknown) (unknown) (unknown) (no date) (unknown) (unknown) Patient denies fever, chills, chest pain, shortness of breath, nausea, (units unknown) (unknown) (unknown) (no date) (unknown) (unknown) Patient's home health aide was also concerned about patient's leg swelling, (units unknown) (unknown) (unknown) (no date) (unknown) (unknown) Patient: [employer] Sun[employer] MR#: [id number] (units unknown) (unknown) (unknown) (no date) (unknown) (unknown) Prescriptions: (unit s unknown) (unknown) (unknown) (no date) (unknown) (unknown) Previous Rx's (units unknown) (unknown) (unknown) (no date) (unknown) (unknown) Psychiatric (units unknown) (unknown) (unknown) (no date) (unknown) (unknown) Psychiatric: D enies anxiety, Denies behavioral changes, Denies confusion, Denies (units unknown) (unknown) (unknown) (no date) (unknown) (unknown) Pulse Oximetry 93 12/17/22 14:41 (units unknown) (unknown) (unknown) (no date) (unknown) (unknown) Pulse Oximetry 93 (u nits unknown) (unknown) (unknown) (no date) (unknown) (unknown) Pulse Rate 74 12/17/22 14:41 (units unknown) (unknown) (unknown) (no date) (unknown) (unknown) Pulse Rate 74 (units unknown) (unknown) (unknown) (no date) (unknown) (unknown) Pulse Rate [Ri ght Dorsalis Pedis] 63 (units unknown) (unknown) (unknown) (no date) (unknown) (unknown) ROS Unobtainab le: All systems reviewed + are unremarkable except as noted in HPI (units unknown) (unknown) (unknown) (no date) (unknown) (unknown) Rate:?regular rate ( units unknown) (unknown) (unknown) (no date) (unknown) (unknown) Referrals: (units unknown) (unknown) (unknown) (no date) (unknown) (unknown) Related Data (units unknown) (unknown) (unknown) (no date) (unknown) (unknown) Resp (units unknown) (unknown) (unknown) (no date) (unknown) (unknown) Respiratory Ra te 22 12/17/22 14:41 (units unknown) (unknown) (unknown) (no date) (unknown) (unknown) Respiratory Rate 22 (units unknown) (unknown) (unknown) (no date) (unknown) (unknown) Respiratory (units unknown) (unknown) (unknown) (no date) (unknown) (unknown) Respiratory: D enies cough, Denies dyspnea, Denies dyspnea on exertion and Denies (units unknown) (unknown) (unknown) (no date) (unknown) (unknown) Return to the ED if you experience any chest pain, shortness of breath. (units unknown) (unknown) (unknown) (no date) (unknown) (unknown) Review of Systems (u nits unknown) (unknown) (unknown) (no date) (unknown) (unknown) Rhythm:?regula r rhythm (units unknown) (unknown) (unknown) (no date) (unknown) (unknown) Right leg appe ars slightly more swollen than the left, which is baseline per (units unknown) (unknown) (unknown) (no date) (unknown) (unknown) Vanessa Krishnamurthy DO [Primary Care Provider] (units unknown) (unknown) (unknown) (no date) (unknown) (unknown) Signed By: (units unknown) (unknown) (unknown) (no date) (unknown) (unknown) Skin/Breast: D enies pruritus, Denies erythema, Denies rash and Denies wounds (units unknown) (unknown) (unknown) (no date) (unknown) (unknown) Smoking Status : Never smoker (units unknown) (unknown) (unknown) (no date) (unknown) (unknown) Social History (units unknown) (unknown) (unknown) (no date) (unknown) (unknown) Source: patien t and EMS (units unknown) (unknown) (unknown) (no date) (unknown) (unknown) 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, incomplete (units unknown) (unknown) (unknown) (no date) (unknown) (unknown) Stand Alone Fo dain: Patient Portal/API (units unknown) (unknown) (unknown) (no date) (unknown) (unknown) Stated complai nt: Rt Leg Swelling (units unknown) (unknown) (unknown) (no date) (unknown) (unknown) Substance Use Type: does not use (units unknown) (unknown) (unknown) (no date) (unknown) (unknown) Surgical Histo ry (units unknown) (unknown) (unknown) (no date) (unknown) (unknown) Temperature 98 .1 F 12/17/22 14:41 (units unknown) (unknown) (unknown) (no date) (unknown) (unknown) Temperature 98.1 F ( units unknown) (unknown) (unknown) (no date) (unknown) (unknown) 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 Your ultrasound did not (units unknown) (unknown) (unknown) (no date) (unknown) (unknown) administrative purposes only. I did not have direct contact with this patient (units unknown) (unknown) (unknown) (no date) (unknown) (unknown) aerosol inhale r (ProAir HFA) (units unknown) (unknown) (unknown) (no date) (unknown) (unknown) albuterol sulf ate 90 mcg/actuation 1 puff inhalation PRN PRN Wheezing 09/17/22 (units unknown) (unknown) (unknown) (no date) (unknown) (unknown) albuterol sulf ate [ProAir HFA] 90 mcg/actuation HFA aerosol inhaler (units unknown) (unknown) (unknown) (no date) (unknown) (unknown) amoxicillin 87 5 mg-potassium 1 tab PO BID #8 tabs 09/23/22 (units unknown) (unknown) (unknown) (no date) (unknown) (unknown) amoxicillin-po t clavulanate 875-125 mg Tablet (units unknown) (unknown) (unknown) (no date) (unknown) (unknown) and Denies orthopnea (units unknown) (unknown) (unknown) (no date) (unknown) (unknown) and Denies uri nary urgency (units unknown) (unknown) (unknown) (no date) (unknown) (unknown) and Denies weakness (units unknown) (unknown) (unknown) (no date) (unknown) (unknown) and below (units unknown) (unknown) (unknown) (no date) (unknown) (unknown) and safety. 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 patient home. ED return precautions were discussed with (units unknown) (unknown) (unknown) (no date) (unknown) (unknown) atorvastatin 4 0 mg tablet 40 mg PO DAILY 09/17/22 09/17/22 (units unknown) (unknown) (unknown) (no date) (unknown) (unknown) atorvastatin 4 0 mg tablet (units unknown) (unknown) (unknown) (no date) (unknown) (unknown) carvedilol 25 mg tablet (Coreg) 25 mg PO BID ##0 04/14/12 09/17/22 (units unknown) (unknown) (unknown) (no date) (unknown) (unknown) carvedilol [Co reg] 25 MG tablet (units unknown) (unknown) (unknown) (no date) (unknown) (unknown) changes. Heather trinidad has been stable throughout the ED stay. Social work was (units unknown) (unknown) (unknown) (no date) (unknown) (unknown) clavulanate 12 5 mg tablet (units unknown) (unknown) (unknown) (no date) (unknown) (unknown) collapse down to the floor. Patient did not hit his head. Patient denies any (units unknown) (unknown) (unknown) (no date) (unknown) (unknown) continue regul ar dressing changes and care. Social work was involved and they (units unknown) (unknown) (unknown) (no date) (unknown) (unknown) depression, De nies homicidal ideation and Denies suicidal ideation (units unknown) (unknown) (unknown) (no date) (unknown) (unknown) diarrhea, Scott es nausea and Denies vomiting (units unknown) (unknown) (unknown) (no date) (unknown) (unknown) discharge. Sg willard appears to have been well taken care of and recently dressed. (units unknown) (unknown) (unknown) (no date) (unknown) (unknown) docusate sodiu m 100 mg Capsule (units unknown) (unknown) (unknown) (no date) (unknown) (unknown) docusate sodiu m 100 mg capsule 100 mg PO BID #60 caps 09/23/22 (units unknown) (unknown) (unknown) (no date) (unknown) (unknown) doing that at [facility] daily. Yesterday, patient states that he overload that (units unknown) (unknown) (unknown) (no date) (unknown) (unknown) during this vi sit. They were seen independently by the APC. (units unknown) (unknown) (unknown) (no date) (unknown) (unknown) falls, Denies lethargy and Denies weakness (units unknown) (unknown) (unknown) (no date) (unknown) (unknown) feels comforta ble navigating this. Patient states he has no new symptoms today. (units unknown) (unknown) (unknown) (no date) (unknown) (unknown) gabapentin 600 mg tablet 600 mg PO TID 09/17/22 09/17/22 (units unknown) (unknown) (unknown) (no date) (unknown) (unknown) gabapentin 600 mg tablet (units unknown) (unknown) (unknown) (no date) (unknown) (unknown) have arranged for more in-home help for you. BLS will transport you back home. (units unknown) (unknown) (unknown) (no date) (unknown) (unknown) him to the ED today for further evaluation due to concerns of lack of mobility (units unknown) (unknown) (unknown) (no date) (unknown) (unknown) his wheelchair breaks had not been applied, he tried to transfer into the (units unknown) (unknown) (unknown) (no date) (unknown) (unknown) home with some extra home help that social work has arranged. BLS transport (units unknown) (unknown) (unknown) (no date) (unknown) (unknown) hospitalized i n September 2022 for the decubitus ulcer, was discharged to [facility] (units unknown) (unknown) (unknown) (no date) (unknown) (unknown) household memb ers: spouse (units unknown) (unknown) (unknown) (no date) (unknown) (unknown) however bety t states that his baseline is that his right leg is more swollen (units unknown) (unknown) (unknown) (no date) (unknown) (unknown) hyperlipidemia , CAD, history of right leg DVT sent to the ED by his home health (units unknown) (unknown) (unknown) (no date) (unknown) (unknown) indication for further intervention at this time other than regular dressing (units unknown) (unknown) (unknown) (no date) (unknown) (unknown) injuries from that incident. Patient lives in a multilevel home, has chair (units unknown) (unknown) (unknown) (no date) (unknown) (unknown) involved, maikel ent and patient's feel comfortable with patient returning (units unknown) (unknown) (unknown) (no date) (unknown) (unknown) lidocaine 5 % Adhesive Patch,Medicated (units unknown) (unknown) (unknown) (no date) (unknown) (unknown) lidocaine 5 % adhesive patch,medicated (units unknown) (unknown) (unknown) (no date) (unknown) (unknown) lidocaine 5 % topical patch 1 ea topical DAILY #30 ea 09/23/22 (units unknown) (unknown) (unknown) (no date) (unknown) (unknown) lidocaine 5 % topical patch 1 patch transdermal Q12H PRN Pain, 09/17/22 09/17/22 (units unknown) (unknown) (unknown) (no date) (unknown) (unknown) lightheadednes s, Denies palpitations, Denies dyspnea, Denies dyspnea on exertion (units unknown) (unknown) (unknown) (no date) (unknown) (unknown) lives that rehan es him from the garage to the main level, and another chair lift (units unknown) (unknown) (unknown) (no date) (unknown) (unknown) lower extremit ies shows no DVTs. The ulcer seems to be well cared for, no (units unknown) (unknown) (unknown) (no date) (unknown) (unknown) neck pain, Den ies sore throat and Denies throat swelling (units unknown) (unknown) (unknown) (no date) (unknown) (unknown) nurse due to c oncerns of lack of patient mobility and safety. Given no new (units unknown) (unknown) (unknown) (no date) (unknown) (unknown) nurse due to c oncerns of lack of patient mobility and safety. Patient was (units unknown) (unknown) (unknown) (no date) (unknown) (unknown) of the sacral region, CHF, MS stent x2, pacer on chronic Eliquis, hypertension, (units unknown) (unknown) (unknown) (no date) (unknown) (unknown) out of SNF fun ds. Patient was set up with a home health aide at home, who sent (units unknown) (unknown) (unknown) (no date) (unknown) (unknown) [facility]. This chart is signed by myself for (units unknown) (unknown) (unknown) (no date) (unknown) (unknown) patient. Heather trinidad verbalized understanding. (units unknown) (unknown) (unknown) (no date) (unknown) (unknown) patient. (units unknown) (unknown) (unknown) (no date) (unknown) (unknown) says he can tr ansfer from the bed to the wheelchair successfully and has been (units unknown) (unknown) (unknown) (no date) (unknown) (unknown) show any DVTs. Your back ulcers seems to be well cared for and healing. Please (units unknown) (unknown) (unknown) (no date) (unknown) (unknown) symptoms, will rule out DVT due to history of DVTs. Ultrasound Doppler of the (units unknown) (unknown) (unknown) (no date) (unknown) (unknown) than the left and he has no new leg pain. (units unknown) (unknown) (unknown) (no date) (unknown) (unknown) the take some from the main level up to the 2nd floor where his bed is. Patient (units unknown) (unknown) (unknown) (no date) (unknown) (unknown) vomiting, abdo kaelyn pain, dysuria, lightheadedness, dizziness, syncope. (units unknown) (unknown) (unknown) (no date) (unknown) (unknown) wheelchair bound (un its unknown) (unknown) (unknown) (no date) (unknown) (unknown) wheelchair, wh ich sent the wheelchair rolling away from him, causing him to (units unknown) (unknown) (unknown) (no date) (unknown) (unknown) wheezing (units unknown) (unknown) (unknown) (no date) (unknown) (unknown) which is a SNF . Patient was discharged from [facility] back home due to running (units unknown) (unknown) Social History date description facility 2022-12-17 00:00 Never smoked tobacco (finding) [facility] Vital Signs date measurement value units 2022-12-17 [...]
--- NOTE | 2023-01-15 11:41 | XRAY Report ---
PROCEDURE: Chest 1 View X-Ray INDICATIONS: dyspnea, weight gain TECHNIQUE: One view of the chest was acquired. COMPARISON: 12/25/2022, 09/03/2022. FINDINGS: Surgical changes and devices: Left chest wall pacemaker is seen. Right-sided pacemaker leads are als o noted unchanged from prior studies. Lungs and pleura: No pleural effusions or pneumothorax. Lungs are clear. Mediastinum: Mediastinal contours appear normal. Heart size is enlarged. Bones and chest wall: No suspicious bony lesions. Overlying soft tissues appear unremarkable. IMPRESSION: No acute cardiopulmonary process. No significant changes from previous studies. Reviewed by: Marty Jimenes MD on 01/15/2023 10:35 AM ROGER Approved by: Marty Jimenes MD on 01/15/2023 10:35 AM ROGER Station ID: [id number]
[2023-01-15 11:45] LABS: BASOPHILS # (AUTO) 0.1 10^3/uL (0.0-0.1); BASOPHILS % (AUTO) 0.6 %; EOSINOPHILS # (AUTO) 0.5 10^3/uL (0.0-0.7); EOSINOPHILS % (AUTO) 5.7 %; HCT - HEMATOCRIT 43.2 % (42.0-52.0); LYMPHOCYTES # (AUTO) 2.3 10^3/uL (1.5-3.5); LYMPHOCYTES % (AUTO) 28.5 %; MEAN CORPUSCULAR HEMOGLOBIN 25.7 pg (27.0-31.0); MEAN CORPUSCULAR HGB CONC 30.1 g/dL (32.0-36.0); MEAN CORPUSCULAR VOLUME 85.4 fL (80.0-94.0); MEAN PLATELET VOLUME 9.2 fL (7.4-11.4); MONOCYTES # (AUTO) 0.5 10^3/uL (0.0-1.0); MONOCYTES % (AUTO) 5.9 %; NEUTROPHILS # (AUTO) 4.7 10^3/uL (1.5-6.6); NEUTROPHILS % (AUTO) 59.1 %; PLT - PLATELET COUNT 239 10^3/uL (130-450); RED BLOOD COUNT 5.06 10^6/uL (4.70-6.10); RED CELL DISTRIBUTION WIDTH 17.6 % (12.0-15.0)
[2023-01-15 12:18] LABS: ALBUMIN/GLOBULIN RATIO 0.8 (1.0-2.2); BILIRUBIN,TOTAL 0.5 mg/dL (0.2-1.0); CALCIUM 8.5 mg/dL (8.5-10.3); CREATININE 0.8 mg/dL (0.6-1.2); MAGNESIUM 2.2 mg/dL (1.7-2.8); POTASSIUM 3.9 mmol/L (3.5-5.0); TOTAL PROTEIN 6.8 g/dL (6.7-8.2)
[2023-01-15] MEDS ORDERED: DOXYCYCLINE 100 MG TABLET PO STA (14:32)
[2023-01-15 17:29] VITALS: BP 146/97
--- NOTE | 2023-01-16 18:22 | ED Physician Documentation ---
ED Addendum - Addendum Addendum: 01/16/23 18:20 The patient's culture is showing beta-hemolytic strep group F from his wound. I was anticipating staph and so I prescribed doxycycline with Bactroban. However this is less likely to cover that. We will add cephalexin for cellulitis coverage from strep. I will send this to his listed pharmacy. [facility] pharmacy. I will have nursing contact him to nut picker the new prescription. The culture is also showing a second organism Proteus which is not yet identif ied or sensitivities. May have him continue the Doxy for now pending that further culture identification.
== END 2023-01-15 17:58 | disposition home or self-care (01) ==
LOC: EDUNIT# → ED 10:53
DX: N48.22 Cellulitis of corpus cavernosum and penis (principal); R06.2 Wheezing; R60.0 Localized edema; B95.4 Other streptococcus as the cause of diseases classified elsewhere; E87.70 Fluid overload, unspecified; Z96.0 Presence of urogenital implants; I11.0 Hypertensive heart disease with heart failure; I50.9 Heart failure, unspecified; I25.10 Atherosclerotic heart disease of native coronary artery without angina pectoris; I25.2 Old myocardial infarction
CPT/HCPCS: 36415; 51798; 71045; 80053; 83690; 83735; 85025; 87070; 87077; 87181; 87205; 94640; 96374; 99284; A9270

== ENCOUNTER 2023-01-15 17:59 | Outpatient (CLI) | payer MEDICARE, OTHER | END 2023-01-15 23:59 | disposition home or self-care (01) | LOC: EMS 17:59 | PROVIDERS: ATTEND Emergency Medicine | DX: R53.1 Weakness (principal); L89.159 Pressure ulcer of sacral region, unspecified stage; Z74.01 Bed confinement status | CPT/HCPCS: A0425; A0428 ==

== ENCOUNTER 2023-02-07 15:55 | Outpatient (CLI) | payer MEDICARE, OTHER | END 2023-02-07 15:56 | disposition short-term general hospital (02) | LOC: EMS 15:55 | DX: R06.00 Dyspnea, unspecified (principal); R06.2 Wheezing; R62.7 Adult failure to thrive; Z74.01 Bed confinement status | CPT/HCPCS: A0425; A0429; A0888 ==

== ENCOUNTER 2023-09-26 09:18 | Outpatient (CLI) | payer MEDICARE, OTHER ==
[2023-09-26 09:56] LABS: ALBUMIN 3.2 g/dL (3.2-5.5); ALKALINE PHOSPHATASE 118 IU/L (42-121); ALT ALANINE AMINOTRANSFERASE 10 IU/L (10-60); AST ASPARTATE AMINOTRANSFERASE 15 IU/L (10-42); BILIRUBIN,TOTAL 0.6 mg/dL (0.2-1.0); BUN - BLOOD UREA NITROGEN 25 mg/dL (6-20); CALCIUM 8.8 mg/dL (8.5-10.3); CARBON DIOXIDE - CO2 28 mmol/L (21-32); CHLORIDE 105 mmol/L (101-111); CHOL/HDL RATIO 4.7 (<5.0); CHOLESTEROL 109 mg/dL; CREATININE 0.8 mg/dL (0.6-1.3); GFR - MDRD 93 (>89); GLUCOSE 80 mg/dL (74-104); HDL CHOLESTEROL 23 mg/dL; LDL CHOLESTEROL,CALCULATED 57 mg/dL; LDL/HDL RATIO 2.5 (<3.6); SODIUM 140 mmol/L (135-145); TOTAL PROTEIN 6.5 g/dL (6.4-8.9); TRIGLYCERIDES 145 mg/dL (48-352); VLDL CHOLESTEROL 29 mg/dL
[2023-09-26 10:02] LABS: THYROID STIMULATING HORMONE 2.58 uIU/mL (0.34-5.60)
== END 2023-09-26 09:19 | disposition home or self-care (01) ==
LOC: LAB 09:18 → LAB.R 09:19
PROVIDERS: ATTEND Registered Nurse
DX: R94.6 Abnormal results of thyroid function studies (principal); Z13.29 Encounter for screening for other suspected endocrine disorder; Z13.228 Encounter for screening for other metabolic disorders; Z13.220 Encounter for screening for lipoid disorders; Z13.21 Encounter for screening for nutritional disorder
CPT/HCPCS: 80053; 80061; 82306; 83721; 84439; 84443

== ENCOUNTER 2023-11-23 08:00 | Outpatient (CLI) | payer MEDICARE, OTHER ==
[2023-11-23 21:45] LABS: BASOPHILS # (AUTO) 0.1 10^3/uL (0.0-0.1); BASOPHILS % (AUTO) 0.5 %; EOSINOPHILS # (AUTO) 0.7 10^3/uL (0.0-0.7); HCT - HEMATOCRIT 46.8 % (42.0-52.0); HGB - HEMOGLOBIN 14.4 g/dL (14.0-18.0); LYMPHOCYTES # (AUTO) 4.1 10^3/uL (1.5-3.5); LYMPHOCYTES % (AUTO) 30.5 %; MEAN CORPUSCULAR HEMOGLOBIN 27.4 pg (27.0-31.0); MEAN CORPUSCULAR HGB CONC 30.8 g/dL (32.0-36.0); MEAN CORPUSCULAR VOLUME 89.1 fL (80.0-94.0); MEAN PLATELET VOLUME 9.9 fL (7.4-11.4); MONOCYTES # (AUTO) 1.1 10^3/uL (0.0-1.0); MONOCYTES % (AUTO) 7.8 %; NEUTROPHILS # (AUTO) 7.5 10^3/uL (1.5-6.6); NEUTROPHILS % (AUTO) 55.3 %; PLT - PLATELET COUNT 317 10^3/uL (130-450); RED BLOOD COUNT 5.25 10^6/uL (4.70-6.10); RED CELL DISTRIBUTION WIDTH 17.2 % (12.0-15.0); WHITE BLOOD COUNT 13.5 x10^3/uL (4.8-10.8)
== END 2023-11-23 23:59 | disposition home or self-care (01) ==
LOC: LAB.R 08:00
DX: Z51.81 Encounter for therapeutic drug level monitoring (principal); Z79.01 Long term (current) use of anticoagulants
CPT/HCPCS: 85025

== ENCOUNTER 2024-04-06 13:38 | Outpatient (CLI) | payer MEDICARE, OTHER, MEDICAID ==
--- NOTE | 2024-04-06 19:35 | Ultrasound Report ---
PROCEDURE: Bladder INDICATIONS: HEMATURIA TECHNIQUE: Real-time scanning was performed of the bladder, with image documentation. COMPARISON: CT of lumbar spine dated 06/11/2022 FINDINGS: Bladder: Hull catheter is seen in urinary bladder lumen. Pre-void bladder volume is 449.1 mL. Pre-vo id images demonstrate no intraluminal masses or stones. On pre-void images, bilateral ureteral jets are noted with color Doppler interrogation. (Of note, ureteral jets may not be detectable in up to 2 5% of cases due to insufficient differences in specific gravity between ureteral and bladder urine). Miscellaneous: No free pelvic fluid. IMPRESSION: Hull catheter within urinary bladder lumen. No gross bladder wall thickening or discrete bladder wal l mass. No bladder stone is seen. Reviewed by: Marty Teixeira MD on 04/06/2024 7:33 PM PDT Approved by: Marty Teixeira MD on 04/06/2024 7:33 PM PDT Station ID: [id number]
== END 2024-04-06 13:39 | disposition home or self-care (01) ==
LOC: DI 13:38
PROVIDERS: ATTEND Family Medicine
DX: R31.9 Hematuria, unspecified (principal); Z96.0 Presence of urogenital implants

== ENCOUNTER 2024-04-14 08:00 | Outpatient (CLI) | payer MEDICARE, OTHER, MEDICAID ==
[2024-04-14 04:26] LABS: CALCIUM 8.6 mg/dL (8.5-10.3); CREATININE 0.8 mg/dL (0.6-1.3); POTASSIUM 3.8 mmol/L (3.5-4.5)
== END 2024-04-14 23:59 | disposition home or self-care (01) ==
LOC: LAB.R 08:00
PROVIDERS: ATTEND Family Medicine
DX: I10 Essential (primary) hypertension (principal)
CPT/HCPCS: 80048

== ENCOUNTER 2024-05-10 08:00 | Outpatient (CLI) | payer MEDICARE, OTHER, MEDICAID ==
[2024-05-10 19:40] LABS: BILIRUBIN,URINE NEGATIVE (NEGATIVE); GLUCOSE, URINE (UA) NEGATIVE (NEGATIVE); KETONES,URINE (UA) NEGATIVE (NEGATIVE); LEUKOCYTE ESTERASE, URINE LARGE (NEGATIVE); NITRITE,URINE POSITIVE (NEGATIVE); OCCULT BLOOD,URINE MODERATE (NEGATIVE); PH,URINE 6.5 PH (5.0-7.5); PROTEIN,URINE TRACE mg/dL (NEGATIVE); UROBILINOGEN,URINE 1 (NORMAL) E.U./dL (NORMAL)
[2024-05-10 19:43] LABS: CLARITY,URINE CLOUDY (CLEAR)
[2024-05-10 19:53] LABS: WBC,URINE >25 /HPF (0-3)
[2024-05-10 19:54] LABS: AMORPHOUS SEDIMENT,UR Marked /LPF; BACTERIA,URINE Many /HPF (None Seen); MUCUS,URINE Moderate Strands; SQUAMOUS EPITHELIAL CELL,UR RARE Squamous (<= Few)
== END 2024-05-10 23:59 | disposition home or self-care (01) ==
LOC: LAB.R 08:00
PROVIDERS: ATTEND Family Medicine
DX: R31.9 Hematuria, unspecified (principal)
CPT/HCPCS: 81001; 81003; 87077; 87086; 87181

== ENCOUNTER 2024-07-16 10:32 | Observation (INO) ==
--- NOTE | 2024-07-16 11:41 | ED Physician Documentation ---
PD HPI ABD PAIN Stated complaint Stated Complaint: GIB Chief complaint Chief Complaint: Abd Pain Additional information Additional information: Recent transfer to [place] for stage IV pressure ulcer with osteomyelitis. Had diverting ostomy June 30. Seen yesterday for blood in the stoma and hemoglobin of 13.5. Returns today with continued blood in the stoma. No N/V. He is on Eliquis. Meds/Allgy Home Medications Ambulatory Orders Medication Instructions Recorded Confirmed carvedilol 25 mg tablet 6.25 mg PO TIDWM 08/04/15 06/21/24 gabapentin 600 mg tablet 600 mg PO TID peripheral 06/28/17 06/21/24 (Neurontin) neuropathy ##30 acetaminophen 500 mg tablet 500 mg PO Q6H 12/02/17 06/21/24 atorvastatin 40 mg tablet 40 mg PO DAILY 12/02/17 06/21/24 multivitamin (Multiple Vitamins 1 tab PO DAILY 12/02/17 06/21/24 tablet) apixaban 2.5 mg tablet (Eliquis) 5 mg PO BID 09/04/22 06/21/24 lidocaine 5 % topical patch 1 patch topical DAILY PRN Pain 09/04/22 06/21/24 furosemide 20 mg tablet 40 mg (2 x 20 mg) PO DAILY #40 tabs 09/14/22 06/21/24 albuterol sulfate 90 mcg/actuation 1 - 2 puff inhalation Q4HR PRN 01/15/23 06/21/24 aerosol inhaler (Ventolin HFA) Shortness Of Air/Wheezing #1 ea ascorbic acid (vitamin C) 500 mg 500 mg PO DAILY 06/21/24 06/21/24 capsule calcium 600 mg (as 1 cap PO DAILY 06/21/24 06/21/24 carbonate)-vitamin D3 5 mcg (200 unit) capsule (Calcium 600 + D(3)) pantoprazole 40 mg intravenous 40 mg IV DAILY 30 days 07/15/24 solution Allergies Allergies Allergy/AdvReac Type Severity Reaction Status Date / Time No Known Drug Allergies Allergy Verified 07/16/24 10:51 [facility] Medical History Medical History UTI (urinary tract infection) 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 Morbid obesity due to excess calories Chronic diastolic (congestive) heart failure Chronic low back pain Cardiomegaly Old myocardial infarct Hyperlipemia Hypertension Pacemaker Paraplegia, incomplete Surgical History Surgical History Hx of spinal surgery History of colostomy (~06/29/24) (laparoscopic, @ [place], diverted for sacral wound) Presence urogenital implant Presence of right artificial knee joint Family History Family History (Updated 07/16/24 @ 14:23 by Paras Bronson) Brother Congenital heart disease Other CAD (coronary artery disease) Social History Social History Smoking Status: Never smoker Second hand tobacco smoke exposure: No Do you dip or chew tobacco?: No Do you vape?: No Living arrangement: long-term ([facility]) Living Condition: With spouse/s.o. Relationship: Spouse Level: Assisted Home Mobility Equipment: Wheelchair Do you feel safe in your home environment?: Yes Suffered physical, verbal, emotional, or financial abuse?: No History of Abuse: No Substance Use: denies use POLST Patient has POLST: Yes POLST Status: Full Code Exam Constitutional normal general appearance and no apparent distress Cardiovascular normal heart rate noted and regular rhythm noted Gastrointestinal abdomen soft to palpation and nontender to palpation There is an ostomy appliance in place with clear bag and maroonish clots stool in the bag. Genitourinary Very deep stage IV pressure ulcer over the sacrum. I repacked it with Kerlix moistened with saline during exam. There is a broader and significant stage I pressure ulcer. Results Vitals Vitals: Vital Signs - 24 hr 07/16/24 10:45 Temperature 36.3 C L Temperature Source Temporal Artery Scan Pulse Rate 73 Respiratory Rate 18 Blood Pressure 112/57 L O2 Saturation 88 L O2 Source Room air Pain Intensity 0 Oxygen O2 Source Room air Labs Labs: Laboratory Tests 07/15/24 07/16/24 09:19 11:40 WBC 14.5 H RBC 4.37 L Hgb 12.0 L Hct 39.2 L MCV 89.7 MCH 27.5 MCHC 30.6 L RDW 18.3 H Plt Count 227 MPV 9.9 Neut # (Auto) 8.6 H Lymph # (Auto) 3.9 H [place] # (Auto) 1.1 H Eos # (Auto) 0.7 Baso # (Auto) 0.1 Absolute Nucleated RBC 0.00 Nucleated RBC % 0.0 PT 15.4 H INR 1.4 H Sodium 135 Potassium 3.8 Chloride 98 L Carbon Dioxide 34 H Anion Gap 3.0 L BUN 22 H Creatinine 0.9 Estimated GFR (MDRD) 81 L Glucose 121 H Calcium 8.4 L Total Bilirubin 0.6 AST 22 ALT 28 Alkaline Phosphatase 103 Total Protein 5.9 L Albumin 2.9 L Globulin 3.0 Albumin/Globulin Ratio 1.0 Lipase 18 Blood Type A NEGATIVE Blood Type Recheck A NEGATIVE Antibody Screen NEGATIVE PD Medical Decision Making ED course ED course: 83-year-old gentleman with recent ostomy placement now with maroon blood in the ostomy. His hemoglobin is dropped a point and a half. He is hemodynamically stable. He is anticoagulated medically complex. I spoke with Dr. Tiwari, our surgeon, who agrees to consult and Dr. Cosby for observation at 12:05 PM. The patient and family are counseled as to the diagnosis and need for admission. This document was made in part using voice recognition software, while efforts are made to proofread this document, sound alike an grammatical errors may occur. Discharge Plan Discharge Patient Disposition: ED Place in Observation Condition: Stable Clinical Impression: Colostomy complication, Acute GI bleeding, Pressure ulcer of sacral region, stage 4 Interventions: ED Admission Assessment Last Done: 07/16/24 13:16
[2024-07-16 11:48] LABS: BASOPHILS # (AUTO) 0.1 10^3/uL (0.0-0.1); BASOPHILS % (AUTO) 0.3 %; EOSINOPHILS # (AUTO) 0.7 10^3/uL (0.0-0.7); EOSINOPHILS % (AUTO) 4.8 %; HCT - HEMATOCRIT 39.2 % (42.0-52.0); LYMPHOCYTES # (AUTO) 3.9 10^3/uL (1.5-3.5); LYMPHOCYTES % (AUTO) 26.8 %; MEAN CORPUSCULAR HEMOGLOBIN 27.5 pg (27.0-31.0); MEAN CORPUSCULAR HGB CONC 30.6 g/dL (32.0-36.0); MEAN CORPUSCULAR VOLUME 89.7 fL (80.0-94.0); MEAN PLATELET VOLUME 9.9 fL (7.4-11.4); MONOCYTES # (AUTO) 1.1 10^3/uL (0.0-1.0); MONOCYTES % (AUTO) 7.9 %; NEUTROPHILS # (AUTO) 8.6 10^3/uL (1.5-6.6); NEUTROPHILS % (AUTO) 59.5 %; PLT - PLATELET COUNT 227 10^3/uL (130-450); RED BLOOD COUNT 4.37 10^6/uL (4.70-6.10); RED CELL DISTRIBUTION WIDTH 18.3 % (12.0-15.0); WHITE BLOOD COUNT 14.5 x10^3/uL (4.8-10.8)
[2024-07-16 11:53] LABS: INR 1.4 (0.8-1.2); PT - PROTHROMBIN TIME 15.4 secs (9.9-12.6)
[2024-07-16 12:03] LABS: ALBUMIN 2.9 g/dL (3.2-5.5); BILIRUBIN,TOTAL 0.6 mg/dL (0.2-1.0); CALCIUM 8.4 mg/dL (8.5-10.3); CREATININE 0.9 mg/dL (0.6-1.3); POTASSIUM 3.8 mmol/L (3.5-4.5); TOTAL PROTEIN 5.9 g/dL (6.4-8.9)
[2024-07-16] MEDS ORDERED: ONDANSETRON 4 MG/2 ML VIAL IVP PRN (13:00)
[2024-07-16] MEDS ORDERED: ONDANSETRON ODT 4 MG TABLET TL PRN (13:00)
[2024-07-16] MEDS ORDERED: ALBUTEROL NEB 2.5 MG/3 ML INH PRN (13:00)
[2024-07-16] MEDS ORDERED: oxyCODONE 5 MG TABLET PO PRN (13:00)
[2024-07-16] MEDS: SODIUM CHLORIDE FLUSH 0.9% 10 ML SYRINGE IVP PRN (13:01)
[2024-07-16] MEDS: PANTOPRAZOLE 40 MG VIAL IVP STA (13:01)
[2024-07-16 13:15] LABS: HCT - HEMATOCRIT 40.1 % (42.0-52.0); HGB - HEMOGLOBIN 12.2 g/dL (14.0-18.0); MEAN CORPUSCULAR HEMOGLOBIN 27.4 pg (27.0-31.0); MEAN CORPUSCULAR HGB CONC 30.4 g/dL (32.0-36.0); MEAN CORPUSCULAR VOLUME 89.9 fL (80.0-94.0); MEAN PLATELET VOLUME 10.1 fL (7.4-11.4); RED BLOOD COUNT 4.46 10^6/uL (4.70-6.10); RED CELL DISTRIBUTION WIDTH 18.2 % (12.0-15.0); WHITE BLOOD COUNT 15.8 x10^3/uL (4.8-10.8)
--- NOTE | 2024-07-16 14:27 | HISTORY & PHYSICAL EXAMINATION ---
Chief Complaint <Paras Bronson - Last Filed: 07/16/24 16:58> Chief Complaint Chief Complaint: Blood in stoma History of Present Illness <Paras Bronson - Last Filed: 07/16/24 16:58> Admitted From Admitted From:: ER History Obtained From Records Reviewed: expanse History obtained from: patient Exam Limitations: none History of Present Illness HPI Comment/Other: Patient is an 83 year old man being admitted for blood in his colostomy bag. Patient states he noticed it beginning two days ago and came to the ER when it was not improving. Patient states there is mild to moderate pain with palpation just inferior to the stoma site. Pain does not radiate and only occurs with palpation. Patient denies any nausea vomiting, bloating, constipation, diarrhea, or other GI related issues. The colostomy was placed due to patient's sacral pressure ulcer. Ulcer is approximately [id number], with surrounding rash that covers the buttocks and scrotum and will require care while in the hospital. Patient is complaining of minor pain at rest that is worsened with palpation and movement. Patient is currently denying any recent fever, chills, or signs of systemic infection. Meds/Allgy <Paras Bronson - Last Filed: 07/16/24 16:58> Home Medications Ambulatory Orders Medication Instructions Recorded Confirmed carvedilol 25 mg tablet 6.25 mg PO TIDWM 08/04/15 06/21/24 gabapentin 600 mg tablet 600 mg PO TID peripheral 06/28/17 06/21/24 (Neurontin) neuropathy ##30 acetaminophen 500 mg tablet 500 mg PO Q6H 12/02/17 06/21/24 atorvastatin 40 mg tablet 40 mg PO DAILY 12/02/17 06/21/24 multivitamin (Multiple Vitamins 1 tab PO DAILY 12/02/17 06/21/24 tablet) apixaban 2.5 mg tablet (Eliquis) 5 mg PO BID 09/04/22 06/21/24 lidocaine 5 % topical patch 1 patch topical DAILY PRN Pain 09/04/22 06/21/24 furosemide 20 mg tablet 40 mg (2 x 20 mg) PO DAILY #40 tabs 09/14/22 06/21/24 albuterol sulfate 90 mcg/actuation 1 - 2 puff inhalation Q4HR PRN 01/15/23 06/21/24 aerosol inhaler (Ventolin HFA) Shortness Of Air/Wheezing #1 ea ascorbic acid (vitamin C) 500 mg 500 mg PO DAILY 06/21/24 06/21/24 capsule calcium 600 mg (as 1 cap PO DAILY 06/21/24 06/21/24 carbonate)-vitamin D3 5 mcg (200 unit) capsule (Calcium 600 + D(3)) pantoprazole 40 mg intravenous 40 mg IV DAILY 30 days 07/15/24 solution Allergies Allergies Allergy/AdvReac Type Severity Reaction Status Date / Time No Known Drug Allergies Allergy Verified 07/16/24 10:51 PFSH <Paras Bronson - Last Filed: 07/16/24 16:58> Medical History Medical History (Updated 07/16/24 @ 16:55 by Paras Bronson) UTI (urinary tract infection) 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 Morbid obesity due to excess calories Chronic diastolic (congestive) heart failure Chronic low back pain Cardiomegaly Old myocardial infarct Hyperlipemia Hypertension Pacemaker Paraplegia, incomplete Surgical History Surgical History Hx of spinal surgery History of colostomy (~06/29/24) (laparoscopic, @ [place], diverted for sacral wound) Presence urogenital implant Presence of right artificial knee joint Family History Family History (Updated 07/16/24 @ 16:56 by Paras Bronson) Brother Congenital heart disease CAD (coronary artery disease) Mother Family history unknown Father Family history unknown Social History Social History Smoking Status: Never smoker Second hand tobacco smoke exposure: No Do you dip or chew tobacco?: No Do you vape?: No Living arrangement: halfway ([facility]) Living Condition: With spouse/s.o. Relationship: Spouse Level: Assisted Home Mobility Equipment: Wheelchair Do you feel safe in your home environment?: Yes Suffered physical, verbal, emotional, or financial abuse?: No History of Abuse: No Substance Use: denies use POLST Patient has POLST: Yes POLST Status: Full Code Review of Systems <Paras Bronson - Last Filed: 07/16/24 16:58> Status of ROS: 10 or more systems reviewed and unremarkable except as noted in history and below Constitutional Denies: Fever, Chills, Night sweats, Changes in appetite or eating habits, Poor appetite or Change in sleep pattern Eyes Denies: Pain, Blurry vision, Vision loss or Eye discomfort Ears, nose, mouth, and throat Denies: Change in hearing, Vertigo or Difficulty swallowing Cardiovascular Denies: Irregular heart rate, chest pain, palpitations, edema, swelling of feet/ankles, lightheadedness or shortness of breath with exertion Respiratory Reports: Cough and Sputum production; Denies: Shortness of breath, Change in phlegm color, Wheezing, Snoring or Stridor Gastrointestinal Reports: Blood in stool; Denies: Abdominal pain, Abdominal distention, Nausea, Vomiting, Poor appetite, Coffee grounds in vomit or Difficulty swallowing Genitourinary Reports: other (Patient has split urethra with supra pubic catheter. ) Musculoskeletal Reports: Back pain, Extremity pain, Muscle pain, Muscle aches, Muscle weakness and Other (Extremity pain and weakness is normal for patient. No acute changes noted.) Integumentary/Breast Reports: Rash, Redness, Skin tenderness, Sores, Changing lesion and Non-healing lesion; Denies: Jaundice or Acne Neurological Reports: Weakness in extremities; Denies: Headache, General weakness, Abnormal gait, Vertigo, Behavioral changes or Slurred speech Psychiatric Denies: Change in sleep pattern Endocrine Denies: Excessive urination, Excessive thirst, Excessive sweating or Flushing Allergic/Immunologic Denies: Wheezing <Paras Bronson - Last Filed: 07/16/24 16:58> Prior Level of Functionality: Patient lives at [facility] and requires daily assistance due to mobility issues from obesity and numerous past spinal surgeries. No significant prior level of functionality changes noted. Exam <Paras Reyes - Last Filed: 07/16/24 16:58> Exam Patient is alert and oriented with no obvious or significant distress. Patient is pleasant to talk to and able to articulate his medical complaints well. Constitutional normal general appearance, no apparent distress, abnormal body habitus, limitations noted and alert HENMT normocephalic, head/scalp atraumatic, hearing grossly normal bilaterally, external ears normal, external nose normal and oropharynx normal Eyes PERRL, EOMs intact bilaterally and conjunctivae normal Neck/C-Spine visual inspection normal and trachea midline Lymph no lymphadenopathy noted and no lymphedema noted Chest inspection of chest normal and palpation of chest normal Respiratory breath sounds equal bilaterally, normal respiratory effort, clear to auscultation bilaterally, no wheezes, no rales, no retractions and no use of accessory muscles Cardiovascular normal heart rate noted, regular rhythm noted, no gallop, no rub, no murmur and no JVD Gastrointestinal abdomen soft to palpation, tender to palpation and normoactive bowel sounds Patient is obese with soft and supple abdomen no obvious acute or chronic issues, with exception to his stoma issue identified in the HPI. Genitourinary external appearance abnormal, penis normal, testes abnormal and scrotum abnormal Dry and erythematous rash, spreading from the patient's sacral ulcer, covers the scrotum but spares the penis. Back/Pelvis spine normal to inspection and straight leg raise negative bilaterally Patient acknowledges he is unable to walk due to numerous spinal surgeries that has left his lower extremities weak. Extremities normal to palpation and no tenderness LLow legs are externally rotated and splayed with both lateral malleloi on the bed. Neurology dogman/woman II-XII intact, no movement abnormality noted, no focal motor deficit noted, no sensory deficits noted, speech normal and coordination normal Psychiatry mental status grossly normal, oriented x3, thought process normal, cooperative, affect normal, psychomotor activity normal and memory normal Skin skin color abnormal, rash noted, wound(s) noted, no jaundice and mottling noted Patient has significant rash covering much of his buttocks and scrotum, spreading from a sacral ulcer. Lower extremities are also noticeably pale, but states this is not abnormal. Light red rash beginning on left lateral malleolus . Conclusion/Plan <Paras Bronson - Last Filed: 07/16/24 16:58> Problem List (1) Acute GI bleeding: Plan: Dr. Tiwari has been consulted regarding the patient's care. She removed and examined his GI stoma and colostomy bag and believes the bleeding is peristomal and not of GI origin. CT of the abdomen and pelvis with IV contrast will be performed to evaluate for any sources of bleeding in the abdomen. We will hold the patient's Eliquis and possibly resume tomorrow pending results of the CT. (2) Pressure ulcer of sacral region, stage 4: Plan: Patient has a approximate 10cm x 10cm sacral ulcer just superior of the rectum that be treated with a wound vac. Will closely monitor progression of surrounding rash and treat as required. Lab Results Lab results reviewed: Yes 07/16/24 13:09 07/16/24 11:40 Diagnostic Imaging Results Diagnostic Imaging Results Comments: Awaiting CT. <Angélica Cosby MD - Last Filed: 07/16/24 17:48> Problem List (1) Acute GI bleeding: (2) Pressure ulcer of sacral region, stage 4:
[2024-07-16] MEDS ORDERED: DIATRIZOATE MEGLU/DIATRIZO SOD 30 ML BOTTLE PO ONE (14:52)
--- NOTE | 2024-07-16 14:56 | CONSULTATION NOTE ---
Referring Provider Name of Referring Provider:: Layla Consult Date: 07/16/24 Chief Complaint Chief Complaint Chief Complaint: blood in stoma bag History of Present Illness History of Present Illness HPI Comment/Other: 83yoM with incomplete spinal cord injury, large sacral decubitus ulcer for which he was recently transferred to [place] and had stool diverted via a laparoscopic colostomy creation (06/29), then discharged back to [facility] (prior residence) on 07/06. Hospital records not yet available to me. He was brought to the ED today with 2 days of "blood clots filling the stoma bag". He is on Eliquis. He and his , Bhavna at bedside, deny history of GI bleeding. He is not having any abdominal pain, nausea or emesis. He does have pain at the bottom side of the stoma when the skin is pressed, he noted during ostomy appliance change in the ED. He otherwise has no complaints. General surgery consulted for GIB/endoscopy. 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 Morbid obesity due to excess calories Chronic diastolic (congestive) heart failure Chronic low back pain Cardiomegaly Old myocardial infarct Hyperlipemia Hypertension Pacemaker Paraplegia, incomplete Surgical History Surgical History Hx of spinal surgery History of colostomy (~06/29/24) (laparoscopic, @ [place], diverted for sacral wound) Presence urogenital implant Presence of right artificial knee joint Family History Family History (Updated 07/16/24 @ 14:23 by Paras Bronson) Brother Congenital heart disease Other CAD (coronary artery disease) Social History Social History Smoking Status: Never smoker Second hand tobacco smoke exposure: No Do you dip or chew tobacco?: No Do you vape?: No Living arrangement: [facility] ([facility]) Living Condition: With spouse/s.o. Relationship: Spouse Level: Assisted Home Mobility Equipment: Wheelchair Do you feel safe in your home environment?: Yes Suffered physical, verbal, emotional, or financial abuse?: No History of Abuse: No Substance Use: denies use POLST Patient has POLST: Yes POLST Status: DNR Meds/Allgy Home Medications Ambulatory Orders Medication Instructions Recorded Confirmed carvedilol 25 mg tablet 6.25 mg PO TIDWM 08/04/15 06/21/24 gabapentin 600 mg tablet 600 mg PO TID peripheral 06/28/17 06/21/24 (Neurontin) neuropathy ##30 acetaminophen 500 mg tablet 500 mg PO Q6H 12/02/17 06/21/24 atorvastatin 40 mg tablet 40 mg PO DAILY 12/02/17 06/21/24 multivitamin (Multiple Vitamins 1 tab PO DAILY 12/02/17 06/21/24 tablet) apixaban 2.5 mg tablet (Eliquis) 5 mg PO BID 09/04/22 06/21/24 lidocaine 5 % topical patch 1 patch topical DAILY PRN Pain 09/04/22 06/21/24 furosemide 20 mg tablet 40 mg (2 x 20 mg) PO DAILY #40 tabs 09/14/22 06/21/24 albuterol sulfate 90 mcg/actuation 1 - 2 puff inhalation Q4HR PRN 01/15/23 06/21/24 aerosol inhaler (Ventolin HFA) Shortness Of Air/Wheezing #1 ea ascorbic acid (vitamin C) 500 mg 500 mg PO DAILY 06/21/24 06/21/24 capsule calcium 600 mg (as 1 cap PO DAILY 06/21/24 06/21/24 carbonate)-vitamin D3 5 mcg (200 unit) capsule (Calcium 600 + D(3)) pantoprazole 40 mg intravenous 40 mg IV DAILY 30 days 07/15/24 solution Allergies Allergies Allergy/AdvReac Type Severity Reaction Status Date / Time No Known Drug Allergies Allergy Verified 07/16/24 10:51 Results Lab Results 07/16/24 13:09 07/16/24 11:40 Other Lab Results: Lab Results x24hrs 07/16/24 07/16/24 07/15/24 Range/Units 13:09 11:40 09:19 WBC 15.8 H 14.5 H (4.8-10.8) x10^3/uL RBC 4.46 L 4.37 L (4.70-6.10) 10^6/uL Hgb 12.2 L 12.0 L (14.0-18.0) g/dL Hct 40.1 L 39.2 L (42.0-52.0) % MCV 89.9 89.7 (80.0-94.0) fL MCH 27.4 27.5 (27.0-31.0) pg MCHC 30.4 L 30.6 L (32.0-36.0) g/dL RDW 18.2 H 18.3 H (12.0-15.0) % Plt Count 237 227 (130-450) 10^3/uL MPV 10.1 9.9 (7.4-11.4) fL Neut # (Auto) 8.6 H (1.5-6.6) 10^3/uL Lymph # (Auto) 3.9 H (1.5-3.5) 10^3/uL [place] # (Auto) 1.1 H (0.0-1.0) 10^3/uL Eos # (Auto) 0.7 (0.0-0.7) 10^3/uL Baso # (Auto) 0.1 (0.0-0.1) 10^3/uL Absolute Nucleated RBC 0.00 x10^3/uL Nucleated RBC % 0.0 /100WBC PT 15.4 H (9.9-12.6) secs INR 1.4 H (0.8-1.2) Sodium 135 (135-145) mmol/L Potassium 3.8 (3.5-4.5) mmol/L Chloride 98 L (101-111) mmol/L Carbon Dioxide 34 H (21-32) mmol/L Anion Gap 3.0 L (6-13) BUN 22 H (6-20) mg/dL Creatinine 0.9 (0.6-1.3) mg/dL Estimated GFR (MDRD) 81 L (>89) Glucose 121 H (74-104) mg/dL Calcium 8.4 L (8.5-10.3) mg/dL Total Bilirubin 0.6 (0.2-1.0) mg/dL AST 22 (10-42) IU/L ALT 28 (10-60) IU/L Alkaline Phosphatase 103 (42-121) IU/L Total Protein 5.9 L (6.4-8.9) g/dL Albumin 2.9 L (3.2-5.5) g/dL Globulin 3.0 (2.1-4.2) g/dL Albumin/Globulin Ratio 1.0 (1.0-2.2) Lipase 18 (11-82) U/L Blood Type A NEGATIVE Blood Type Recheck A NEGATIVE Antibody Screen NEGATIVE Conclusion and Plan Diagnosis Diagnosis: 1) Peristomal bleeding Hemodynamically stable with 1.5 point drop in hgb, though actually the same as his more sub-acute recent trend in Hgb (currently at 12 from 13.5 yesterday). Clot filling the bag was reported, but to my exam there is normal appearing stool with a small amount of bleeding at the peristomal skin edge. A fresh ostomy appliance was placed by me at bedside at 1400 today. The abdominal exam is benign with exception of focal subcutaneous ttp at the lower lateral edge of the stoma. - Ct abd/pel with IV contrast to rule out bleeding within the abdominal wall, ordered and pending - Monitor output in ostomy bag for melena vs normal stool + separate clots - trend hgb/vitals/volume of clots - if stable and bleeding is stopped/scant, OK to resume Eliquis - No indication for endoscopy at this time - Recommend outpatient referral to [facility] Stoma Nurse ([facility]) Lizy Xiao 2) Sacral decubitus ulcer / Osteomyelitis - off loading as much as possible with q2hr turns and specialty care/offloading mattress - continue wound care to the cavity with BID saline-soaked Kerlix gauze (wet to dry dressing) - the wound wound be amenable to a wound vac - it is clean and there is an adequate tissue plane between the wound and the rectum. Defer decision about transitioning to wound vac to a multi-D team decision, based on resources and nursing care available to vac changes at [facility]. - review recent DC summary from [place] and/or records from [facility] re: current antibiotic coverage, and presumably continue with current plan Remainder of care per Hospitalist team. Ilana Tiwari DO, FACS General Sur[facility] Review of Systems Status of ROS: 10 or more systems reviewed and unremarkable except as noted in history and below Exam Constitutional no apparent distress Respiratory normal respiratory effort Cardiovascular normal heart rate noted Gastrointestinal abdomen soft to palpation Obese, soft, nondistended abdomen. Laparoscopic incisions are CDI without e/o infection. Left sided colostomy present - soft light brown stool in bag, along with separate small dark blood clots not mixed with stool. Appliance removed: stoma is pink, patent, productive; digitized to level of fascia without difficulty. There is no blood within the lumen on digital exam. There is small amount of dark venous blood and clot at the periphery of the stoma at the skin edge. The surrounding skin is excoriated without active bleeding from stool leaking beneath the appliance. The peristoma skin is soft without induration or fluctance, there is focal mild ttp at the lower lateral aspect just adjacent to the bowel, but palpation at this location produces no expressible bleeding, fluid, etc. Genitourinary There is an extensive area of unstagable pressure ulcer extending from the posterior scrotum to above the gluteal cleft, from mid right gluteus to mid left gluteus. At the perineum, there is a ~[id number] cm wound cavity just posterior to the anus, extending to the coccyx. The wound has saline WTD packing and it is clean, without purulence. The bimanual exam of the wound cavity and the rectum showed NO fistulous connection between the two; there is an intact tissue plane the wound from the anus.
[2024-07-16] MEDS: SODIUM CHLORIDE 0.9% 1,000 ML IV SCH (14:59)
[2024-07-16] MEDS: FAMOTIDINE 20 MG/2 ML VIAL IVP SCH (14:59)
[2024-07-16] MEDS ORDERED: iohexoL-300 100 ML VIAL ONE (15:25)
[2024-07-16] MEDS: DIATRIZOATE MEGLU/DIATRIZO SOD 30 ML BOTTLE PO ONE (16:13)
[2024-07-16] MEDS: iohexoL-300 100 ML VIAL IVP ONE (16:14)
[2024-07-16] MEDS: SODIUM CHLORIDE FLUSH 0.9% 10 ML SYRINGE IVP SCH (16:17)
--- NOTE | 2024-07-16 18:05 | CT Report ---
PROCEDURE: CT Abdomen/Pelvis W INDICATIONS: sacral decub ulcer, diverting ostomy with bleed CONTRAST: omni 300, 100 TECHNIQUE: After the administration of intravenous contrast, a CT scan of the abdomen and pelvis was performed. Images were recorded and evaluated at appropriate window settings. Reformats: coronal and sagittal. F or radiation dose reduction, the following was used: automated exposure control, adjustment of mA and /or kV according to patient size. COMPARISON: CT pelvis 06/21/2024. FINDINGS: Image quality: Diagnostic. Lower chest: Pacemaker leads. Liver: No solid mass. Gallbladder: No radiopaque stones or wall thickening. Biliary tree: No intrahepatic or extrahepatic dilation, accounting for age. Spleen: No splenomegaly. Pancreas: No pancreatic ductal dilation. Adrenals: No adrenal nodule. Kidneys and ureters: No hydronephrosis. No renal cystic lesion which requires follow up. No solid mas s. Stomach, bowel and peritoneum: Left colostomy. Diverticulosis. No diverticulitis identified. Normal a ppendix. No small bowel obstruction. No pathologic free fluid. Lymph nodes: No central or retroperitoneal adenopathy. Vessels: No infrarenal aortic aneurysm. Patent portal vein. PELVIS Reproductive organs: Unremarkable. Bladder: Bladder is decompressed with Hull catheter. Bladder wall appears thickened accounting for d ecompression. Pelvic lymph nodes: No pelvic adenopathy by size criteria. Bones: No aggressive osseous abnormality. Multilevel DDD. Other: Small fat-containing umbilical hernia. Perianal collection/decubitus ulcer measuring 6.8 x 4.1 x 3.5 cm, (2/156 6/126), increased. There are fecal contents within the collection. This is deep to the gluteal cleft. This extends to the sacrum. IMPRESSION: 1. Decubitus ulcer measuring 6.8 cm. Mildly increased in size. Extensive sacrum suggesting osteomyeli tis. 2. Bladder is decompressed with Hull catheter. Questionable bladder wall thickening. 3. Left colostomy. No obstruction. No intrapelvic collection. Reviewed by: Luis Garrison MD on 07/16/2024 6:03 PM [facility] Approved by: Luis Garrison MD on 07/16/2024 6:03 PM [facility] Station ID: [id number]
[2024-07-16 19:02] LABS: HCT - HEMATOCRIT 38.8 % (42.0-52.0); HGB - HEMOGLOBIN 12.1 g/dL (14.0-18.0); MEAN CORPUSCULAR HEMOGLOBIN 27.6 pg (27.0-31.0); MEAN CORPUSCULAR HGB CONC 31.2 g/dL (32.0-36.0); MEAN CORPUSCULAR VOLUME 88.6 fL (80.0-94.0); MEAN PLATELET VOLUME 9.9 fL (7.4-11.4); RED BLOOD COUNT 4.38 10^6/uL (4.70-6.10); RED CELL DISTRIBUTION WIDTH 17.9 % (12.0-15.0); WHITE BLOOD COUNT 15.7 x10^3/uL (4.8-10.8)
[2024-07-17 05:37] LABS: BASOPHILS # (AUTO) 0.1 10^3/uL (0.0-0.1); BASOPHILS % (AUTO) 0.4 %; EOSINOPHILS # (AUTO) 0.6 10^3/uL (0.0-0.7); EOSINOPHILS % (AUTO) 5.3 %; HCT - HEMATOCRIT 35.7 % (42.0-52.0); HGB - HEMOGLOBIN 11.1 g/dL (14.0-18.0); LYMPHOCYTES # (AUTO) 3.6 10^3/uL (1.5-3.5); LYMPHOCYTES % (AUTO) 30.4 %; MEAN CORPUSCULAR HEMOGLOBIN 27.5 pg (27.0-31.0); MEAN CORPUSCULAR HGB CONC 31.1 g/dL (32.0-36.0); MEAN CORPUSCULAR VOLUME 88.6 fL (80.0-94.0); MEAN PLATELET VOLUME 9.7 fL (7.4-11.4); MONOCYTES # (AUTO) 0.9 10^3/uL (0.0-1.0); MONOCYTES % (AUTO) 7.4 %; NEUTROPHILS # (AUTO) 6.6 10^3/uL (1.5-6.6); NEUTROPHILS % (AUTO) 55.7 %; PLT - PLATELET COUNT 210 10^3/uL (130-450); RED BLOOD COUNT 4.03 10^6/uL (4.70-6.10); WHITE BLOOD COUNT 11.9 x10^3/uL (4.8-10.8)
[2024-07-17 05:51] LABS: CREATININE 0.8 mg/dL (0.6-1.3); POTASSIUM 3.5 mmol/L (3.5-4.5)
--- NOTE | 2024-07-17 07:34 | PROVIDER PROGRESS NOTE ---
Documented by User: Paras Bronson 07/17/24 10:40 Subjective Prog Note Date Prog Note Date: 07/17/24 Prog Note Time: 10:30 Subjective Pt reports feeling: No change Current Medications Current Medications Current Medications: Current Medications Generic Name Dose Route Start Last Admin Trade Name Freq PRN Reason Stop Dose Admin Acetaminophen 650 mg 07/16/24 13:00 Acetaminophen 325 Mg Tablet PO Q4HR PRN Pain 1 to 4, or Fever Albuterol 2.5 mg 07/16/24 13:00 Albuterol Neb 2.5 Mg/3 Ml INH RTQ4H PRN Wheezing Famotidine 20 mg 07/16/24 13:00 07/16/24 21:11 Famotidine 20 Mg/2 Ml Vial IVP 20 mg BID BILLIE Administration Sodium Chloride 1,000 mls @ 85 mls/hr 07/16/24 13:00 07/17/24 02:42 Normal Saline 0.9% IV 85 mls/hr .[id number] BILLIE Administration Ondansetron HCl 4 mg 07/16/24 13:00 Ondansetron Odt 4 Mg Tablet TL Q6HR PRN Nausea / Vomiting Ondansetron HCl 4 mg 07/16/24 13:00 Ondansetron 4 Mg/2 Ml Vial IVP Q6HR PRN Nausea / Vomiting Oxycodone HCl 5 mg 07/16/24 13:00 Oxycodone 5 Mg Tablet PO Q4HR PRN Pain 5 to 7 Sodium Chloride 10 ml 07/16/24 13:00 07/16/24 13:01 Sodium Chloride Flush 0.9% 10 Ml Syringe IVP 10 ml PRN PRN Administration NEEDED PER PROVIDER ORDERS Sodium Chloride 10 ml 07/16/24 17:00 07/17/24 02:42 Sodium Chloride Flush 0.9% 10 Ml Syringe IVP 10 ml 0100,0900,1700 BILLIE Administration Objective Vital Signs/Intake & Output Reviewed Vital Signs: Yes Vital Signs: Vital Signs x48h Temp Pulse Resp BP Pulse Ox O2 Flow Rate 07/17/24 03:53 36.6 C 73 20 123/61 93 3 07/17/24 00:10 36.6 C 88 18 125/62 93 3 Intake & Output: Intake & Output 07/15/24 07/16/24 07/17/24 07/18/24 05:59 05:59 05:59 05:59 Intake Total 996 / 996 0 / 0 Output Total 1000 / 1000 500 / 500 Balance -4 / -4 -500 / -500 Weight (kg) 130 kg Objective General Appearance: positive No acute distress and Alert Eyes Bilateral: positive Normal inspection, PERRL, No lid inflammation and Conjunctivae nml ENT: positive ENT inspection nml and No signs of dehydration Neck: positive Nml inspection, Thyroid nml, No JVD and Trachea midline Respiratory: positive Chest non-tender, No respiratory distress and Breath sounds nml; negative Wheezes, Rales or Rhonchi Cardiovascular: positive Regular rate & rhythm, No murmur and No gallop Abdomen: positive Non-tender, Nml bowel sounds and No distention Skin: positive Color nml, Warm, Skin rash and Other (Skin normal and warm with exception to existing rash on buttocks, scrotum, and left lateral malleolus as indicated on HPI.) Extremities: positive Non-tender and No pedal edema; negative Full ROM or Nml appearance Neurologic/Psychiatric: positive Oriented x3, CN's nml (2-12) and Mood/affect nml Lab Results 07/17/24 05:19 07/17/24 05:19 Other Labs: Lab Results x24hrs 07/17/24 07/16/24 07/16/24 Range/Units 05:19 19:00 13:09 WBC 11.9 H 15.7 H 15.8 H (4.8-10.8) x10^3/uL RBC 4.03 L 4.38 L 4.46 L (4.70-6.10) 10^6/uL Hgb 11.1 L 12.1 L 12.2 L (14.0-18.0) g/dL Hct 35.7 L 38.8 L 40.1 L (42.0-52.0) % MCV 88.6 88.6 89.9 (80.0-94.0) fL MCH 27.5 27.6 27.4 (27.0-31.0) pg MCHC 31.1 L 31.2 L 30.4 L (32.0-36.0) g/dL RDW 18.0 H 17.9 H 18.2 H (12.0-15.0) % Plt Count 210 219 237 (130-450) 10^3/uL MPV 9.7 9.9 10.1 (7.4-11.4) fL Neut # (Auto) 6.6 (1.5-6.6) 10^3/uL Lymph # (Auto) 3.6 H (1.5-3.5) 10^3/uL Nuckolls # (Auto) 0.9 (0.0-1.0) 10^3/uL Eos # (Auto) 0.6 (0.0-0.7) 10^3/uL Baso # (Auto) 0.1 (0.0-0.1) 10^3/uL Absolute Nucleated RBC 0.00 x10^3/uL Nucleated RBC % 0.0 /100WBC PT (9.9-12.6) secs INR (0.8-1.2) Sodium 136 (135-145) mmol/L Potassium 3.5 (3.5-4.5) mmol/L Chloride 102 (101-111) mmol/L Carbon Dioxide 29 (21-32) mmol/L Anion Gap 5.0 L (6-13) BUN 17 (6-20) mg/dL Creatinine 0.8 (0.6-1.3) mg/dL Estimated GFR (MDRD) 93 (>89) Glucose 91 (74-104) mg/dL Calcium 8.0 L (8.5-10.3) mg/dL Total Bilirubin (0.2-1.0) mg/dL AST (10-42) IU/L ALT (10-60) IU/L Alkaline Phosphatase (42-121) IU/L Total Protein (6.4-8.9) g/dL Albumin (3.2-5.5) g/dL Globulin (2.1-4.2) g/dL Albumin/Globulin Ratio (1.0-2.2) Lipase (11-82) U/L Blood Type Blood Type Recheck Antibody Screen 07/16/24 07/15/24 Range/Units 11:40 09:19 WBC 14.5 H (4.8-10.8) x10^3/uL RBC 4.37 L (4.70-6.10) 10^6/uL Hgb 12.0 L (14.0-18.0) g/dL Hct 39.2 L (42.0-52.0) % MCV 89.7 (80.0-94.0) fL MCH 27.5 (27.0-31.0) pg MCHC 30.6 L (32.0-36.0) g/dL RDW 18.3 H (12.0-15.0) % Plt Count 227 (130-450) 10^3/uL MPV 9.9 (7.4-11.4) fL Neut # (Auto) 8.6 H (1.5-6.6) 10^3/uL Lymph # (Auto) 3.9 H (1.5-3.5) 10^3/uL Nuckolls # (Auto) 1.1 H (0.0-1.0) 10^3/uL Eos # (Auto) 0.7 (0.0-0.7) 10^3/uL Baso # (Auto) 0.1 (0.0-0.1) 10^3/uL Absolute Nucleated RBC 0.00 x10^3/uL Nucleated RBC % 0.0 /100WBC PT 15.4 H (9.9-12.6) secs INR 1.4 H (0.8-1.2) Sodium 135 (135-145) mmol/L Potassium 3.8 (3.5-4.5) mmol/L Chloride 98 L (101-111) mmol/L Carbon Dioxide 34 H (21-32) mmol/L Anion Gap 3.0 L (6-13) BUN 22 H (6-20) mg/dL Creatinine 0.9 (0.6-1.3) mg/dL Estimated GFR (MDRD) 81 L (>89) Glucose 121 H (74-104) mg/dL Calcium 8.4 L (8.5-10.3) mg/dL Total Bilirubin 0.6 (0.2-1.0) mg/dL AST 22 (10-42) IU/L ALT 28 (10-60) IU/L Alkaline Phosphatase 103 (42-121) IU/L Total Protein 5.9 L (6.4-8.9) g/dL Albumin 2.9 L (3.2-5.5) g/dL Globulin 3.0 (2.1-4.2) g/dL Albumin/Globulin Ratio 1.0 (1.0-2.2) Lipase 18 (11-82) U/L Blood Type A NEGATIVE Blood Type Recheck A NEGATIVE Antibody Screen NEGATIVE Diagnostic Imaging Diagnostic Imaging Results: positive See rad report ABX Reporting Has patient been on IV antibiotics over the past 48 hours?: No Assessment/Plan Problem List (1) Chronic osteomyelitis of coccyx: Impression: CT scan that was performed for GI bleed revealed patient's history of osteomyelitis has not been fully resolved and will require continued treatment as an outpatient. No treatments are currently available in the inpatient setting until Friday so patient will be discharged back to his half-way with referral for infectious disease to manage as an outpatient. (2) Pressure ulcer of sacral region, stage 4: Impression: Wound is still looking clean with no immediate concerns noted and can be continued in the outpatient setting. Patient will be discharged with referral for wound care to be managed as an outpatient. (3) Acute GI bleeding: Impression: Recent colostomy bag changes did not reveal any blood in stoma or bag. Dr Tiwari believes source of bleeding was outside the GI system and has self resolved. Will monitor but no treatment currently needed. Documented by User: Angélica Cosby MD 07/17/24 20:27 Subjective Subjective Subjective: I was able to review the discharge summary from [facility]. He has incomplete paraplegia complicated by neurogenic bladder with a chronic Hull, coronary artery disease, diastolic heart failure, COPD, atrial fibrillation on apixaban who came to [facility] on June 22 with a decubitus ulcer. He lives at [facility] for over a year because of immobility and had developed a decubitus ulcer due to his immobility prior to getting to [facility]. While at the he was put on oral vancomycin for the infection of the ulcer. When we evaluated him here in our ER, he was above our level ability to deliver care due to need for ID, plastics, surgery, and the depth of the ulcer. He was transferred to [place] from our emergency room because of the complicated nature of his sacral decubitus ulcer. And he was debrided on June 22 at [place] and had a diverting colostomy June 29. His hospital course was complicated by intermittent hypoxia secondary to atelectasis and/or COPD. That resolved with steroids and nebs. His wound care was regular wound care for sacral ulcer. And he was found to have osteomyelitis of the coccyx. Used to be on antibiotics until July 09. Used to be with Zosyn. And the PICC line was to be removed after completion of IV antibiotic courses on July 10. He was to have PCP follow-up and ID follow-up at the half-way. I know that he sees a half-way provider at the half-way but I do not know if he seen a infectious disease person. Dr. Fifi Jordan was the infectious disease attending. She noted that the June 10 culture was positive for beta-hemolytic strep, MRSA, Proteus, started on the oral vancomycin for a week, then went to our hospital. Our hospital showed a soft tissue abscess of 4.3 x 2.1 x 5.7 cm dorsal and inferior to the lower coccyx with a air and osteomyelitis of the coccyx. Necrotic tissue was debrided down to the muscle. The IntraOp culture from June 22 was positive for Klebsiella oxytocin, Morganella Michael I. He was continued on ceftriaxone, metronidazole, and vancomycin. His blood cultures were negative at 48 hours. He was then transition to Zosyn. And was discharged on Zosyn to stop on July 09. The rest of his discharge diagnoses were chronic heart failure with preserved ejection fraction, euvolemic. Left eye hordeolum. Coronary artery disease that was asymptomatic. Hyperlipidemia, A-fib, and a history of a DVT of the right lower extremity for which he was on Eliquis. He was also felt to have had a UTI associated with an indwelling urethral catheter. Many of his problems were felt to be chronic and unresolved at the time of discharge. Surgery and I spent quite a bit of time discussing the case this morning. His GI bleed appears to have resolved. She really thinks it is a stoma issue. He is not having a GI bleed within the bowel. The stoma appeared quite irritated. And he is forming normal stool in the bag. He has no fresh blood. Hemoglobin has dropped to 11 from 13. She feels he is stable to return back to the half-way. But she would like to escalate the treatment of his sacral decub. She strongly feels he needs a wound VAC. In the outpatient setting, he needs to be sent to the wound clinic here at the hospital and get that wound VAC. She also feels that he still has osteomyelitis. On the CT that we did for his GI bleed, he continues to have osteomyelitis. So we will he will need further MRSA treatment and multi bug treatment with Zosyn. that would mean a PICC line At this time he is hemodynamically stable, and (much like they stated on the discharge summary for [place]) with stable chronic problems that need to be addressed. I am sending him back to the half-way. But I am making arrangements for him to come back and get a PICC line with anesthesia. And I will be sending orders to the half-way for him to resume his Zosyn. I would recommend that he be on Zosyn for minimum of 4 weeks. I am also contacting the wound clinic to make sure this patient is seen expeditiously. None of these things can be accomplished today or tomorrow since is it is the weekend and we are a critical access hospital. I will follow-up with the half-way on Friday. Objective Lab Results 07/17/24 05:19 07/17/24 05:19 Assessment/Plan Problem List (1) Chronic osteomyelitis of coccyx: (2) Pressure ulcer of sacral region, stage 4: (3) Acute GI bleeding:
--- NOTE | 2024-07-17 09:09 | PHARMACY PROGRESS NOTE ---
Best Possible Medication History Admit Date and Time: 07/16/24 1228 Home Medications Medication Instructions Recorded Confirmed Type carvedilol 25 mg tablet 6.25 mg PO TIDWM 08/04/15 07/17/24 History gabapentin 600 mg tablet 600 mg PO TID peripheral 06/28/17 07/17/24 Rx (Neurontin) neuropathy ##30 acetaminophen 500 mg tablet 500 mg PO Q6H 12/02/17 07/17/24 History atorvastatin 40 mg tablet 40 mg PO DAILY 12/02/17 07/17/24 History multivitamin (Multiple Vitamins 1 tab PO DAILY 12/02/17 07/17/24 History tablet) apixaban 2.5 mg tablet (Eliquis) 5 mg PO BID 09/04/22 07/17/24 History lidocaine 5 % topical patch 1 patch topical DAILY PRN Pain 09/04/22 07/17/24 History furosemide 20 mg tablet 40 mg (2 x 20 mg) PO DAILY #40 tabs 09/14/22 07/17/24 Rx albuterol sulfate 90 mcg/actuation 1 - 2 puff inhalation Q4HR PRN 01/15/23 07/17/24 Rx aerosol inhaler (Ventolin HFA) Shortness Of Air/Wheezing #1 ea ascorbic acid (vitamin C) 500 mg 500 mg PO DAILY 06/21/24 07/17/24 History capsule calcium 600 mg (as 1 cap PO DAILY 06/21/24 07/17/24 History carbonate)-vitamin D3 5 mcg (200 unit) capsule (Calcium 600 + D(3)) [facility] Statement: As the person ultimately responsible for medication therapy, providers are able to order a medication from an existing home medication list in [facility] via the "Reconcile Routine" prior to Confirmation of that medication by academic support center director. Such practice is discouraged except when the physician, in their clinical judgment, deems that a medical need exists for a medication without regard to previous use.
--- NOTE | 2024-07-17 09:27 | PROVIDER PROGRESS NOTE ---
Subjective General Admit Date: 07/16/24 Other Other Information/Narrative: HDN/AF, DANIEL. Light brown stool output overnight without clots. No abdominal pain this morning. CT completed yesterday with no bleeding/fluid collection/abscess within the abdominal wall or peritoneum. The sacral osteomyelitis is extensive. Review of Systems Status of ROS: 10 or more systems reviewed and unremarkable except as noted in history and below Exam Constitutional no apparent distress Respiratory normal respiratory effort Cardiovascular normal heart rate noted Gastrointestinal abdomen soft to palpation Obese, soft, nondistended abdomen. Laparoscopic incisions are CDI without e/o infection. Left sided colostomy present - soft light brown stool in bag, no clots this AM. Stoma pink/patent/productive. Appliance removed yesterday: digitized to level of fascia without difficulty. There was no blood within the lumen on digital exam. There was small amount of dark venous blood and clot at the periphery of the stoma at the skin edge. The surrounding skin was excoriated without active bleeding. The peristoma skin is soft without induration or fluctance, there is focal mild ttp at the lower lateral aspect just adjacent to the bowel, but palpation at this location produc es no expressible bleeding, fluid, etc. Genitourinary There is an extensive area of unstagable pressure ulcer extending from the posterior scrotum to above the gluteal cleft, from mid right gluteus to mid left gluteus. At the perineum, there is a ~[id number] cm wound cavity just posterior to the anus, extending to the coccyx. The wound has saline WTD packing and it is clean, without purulence. The bimanual exam of the wound cavity and the rectum showed NO fistulous connection between the two; there is an intact tissue plane the wound from the anus. Psychiatry oriented x3 ABX Reporting Has patient been on IV antibiotics over the past 48 hours?: No Impression/Plan Problem List (1) Acute osteomyelitis of pelvic region: Plan: Extensive osteomyelitis on CT, chart review shows chronically elevated WBC most certainly attributed to this. - Requires senior living IV antibiotics, patient currently on no abx - review recent DC summary from [place] and continue IV abx as per there plan if there is one - if no prior plan for IV abx, recommend ID consult for longitudinal care Qualifiers: Laterality: unspecified laterality Qualified Code(s): M86.159 - Other acute osteomyelitis, unspecified femur (2) Pressure ulcer of sacral region, stage 4: Plan: - Large surface area of unstagable decubitus ulcer that is at high risk of progression to large open wound - critical that patient be treated with upmost precautions, frequent repositioning, "specialty care/offloading" mattress, etc. - The open wound cavity ([id number]) is clean at this time - may continue with BID wet-to dry dressing, vs transition to wound vac (pending optimization of social/logistical care options) (3) Acute GI bleeding: Plan: Bleeding was peristomal bleeding not colonic/GI bleeding, and has stopped now. HD normal, Hgb to 11, likely equilibrating from bleeding prior to admission. - OK to resume Eliquis - No indication for endoscopy - Needs better peristoma skin care to prevent further bleeding: recommend outpatient referral to [facility] Stoma Nurse ([place]) Lizy Xiao Plan Ilana Tiwari DO, FACS General Surgeon, [facility]
--- NOTE | 2024-07-17 10:26 | Discharge Summary ---
Discharge Summary Admit Date: 07/16/24 Discharge Date: 07/17/24 Discharging Provider: Angélica Cosby MD Primary Care Provider: Walter Kearney MD/[facility] Code Status: Attempt Resuscitation Discharge Facility Name: [facility] DIAGNOSES Admission Diagnoses: 1. Acute GI bleeding from colostomy stoma due to irritation 2. Colostomy status, status post diverting colostomy 3. Pressure ulcer of sacral region, cavity of Left buttock 4. Osteomyelitis of coccyx 5. 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 Neurogenic bladder 7. Chronic indwelling Hull catheter 8. Morbid obesity 9 full CODE STATUS HPI History of Present Illness: I reviewed the discharge summary from [facility]. He has incomplete paraplegia complicated by neurogenic bladder with a chronic Hull, coronary artery disease, diastolic heart failure, COPD, atrial fibrillation on apixaban who came to [facility] on June 22 with a decubitus ulcer. He lives at [facility] for over a year because of immobility and had developed a decubitus ulcer due to his immobility prior to getting to [facility]. While at the SNF he was put on oral vancomycin for the infection of the ulcer. When we evaluated him here in our ER, he was above our level ability to deliver care due to need for ID, plastics, surgery, and the depth of the ulcer. He was transferred to [place] from our emergency room because of the complicated nature of his sacral decubitus ulcer. And he was debrided on June 22 at [place] and had a diverting colostomy June 29. His hospital course was complicated by intermittent hypoxia secondary to atelectasis and/or COPD. That resolved with steroids and nebs. His wound care was regular wound care for sacral ulcer. And he was found to have osteomyelitis of the coccyx. Used to be on antibiotics until July 09. Used to be with Zosyn. And the PICC line was to be removed after completion of IV antibiotic courses on July 10. He was to have PCP follow-up and [place] [facility]. I know that [place] [facility] [place] [facility] [place] [facility] but I do not know if he seen a infectious disease person. Dr. Fifi Jordan was the infectious disease attending. She noted that the June 10 culture was positive for beta-hemolytic strep, MRSA, Proteus, started on the oral vancomycin for a week, then went to our hospital. Our hospital showed a soft tissue abscess of 4.3 x 2.1 x 5.7 cm dorsal and inferior to the lower coccyx with a air and osteomyelitis of the coccyx. Necrotic tissue was debrided down to the muscle. The IntraOp culture from June 22 was positive for Klebsiella oxytocin, Morganella Morgani. He was continued on ceftriaxone, metronidazole, and vancomycin. His blood cultures were negative at 48 hours. He was then transition to Zosyn. And was discharged on Zosyn to stop on July 09. The rest of his discharge diagnoses were chronic heart failure with preserved ejection fraction, euvolemic. Left eye hordeolum. Coronary artery disease that was asymptomatic. Hyperlipidemia, A-fib, and a history of a DVT of the right lower extremity for which he was on Eliquis. He was also felt to have had a UTI associated with an indwelling urethral catheter. Many of his problems were felt to be chronic and unresolved at the time of discharge. He is now being admitted for blood in his colostomy bag. Patient states he noticed it beginning two days ago and came to the ER when it was not improving. He was sent back to the SNF when he was felt to be hemodynamically stable and no drop in Hgb. He returned today when the blood came back and is not stopping. Patient states there is mild to moderate pain with palpation just inferior to the stoma site. Pain does not radiate and only occurs with palpation. Patient denies any nausea vomiting, bloating, constipation, diarrhea, or other GI related issues. The colostomy was placed due to patient's sacral pressure ulcer. Ulcer is approximately [id number], with surrounding rash that covers the buttocks and scrotum and will require care while in the hospital. Patient is complaining of minor pain at rest that is worsened with palpation and movement. Patient is currently denying any recent fever, chills, or signs of systemic infection. CONSULTS | PROCEDURES Consultations: General Surgery, Dr. Tobar Procedures: Abdomen pelvis CT with decubitus ulcer/cavity measuring 6.8 x 4.1 x 3.5 cm. Increased in size from CT of pelvis June 21, 2024. There are fecal contents within the collection. Deep to the gluteal cleft. Extends to the sacrum. Bladder is decompressed with Hull catheter. Questionable bladder wall thickening. Left colostomy. No obstruction, no intrapelvic collection. The kidneys do not have hydronephrosis. There is diverticulosis. HOSPITAL COURSE Hospital Course: The patient was placed in observation for GI bleed. Serial hemograms were done and hemoglobin stayed relatively stable for this unfortunate elderly gentleman. This was the reason he was observed. However during his stay we noted several chronic problems that need to be addressed. We are recommending that treatment be escalated in the outpatient setting. 1. The "abscess" that is seen on CT scan is actually a cavity that use to be an abscess. It is quite large and my entire hand can almost go up into the cavity. As I palpate the rodriguez, it is not contiguous with the rectum or anus. There is no stool in the cavity. Detritus of skin and discharge was removed, but not stool. There does not seem to be a contiguous fistula between this cavity and the anus or rectum. The cavity is pink, granulating. Not foul-smelling. But that cavity should be packed daily and dressing removed daily. We are recommending that the patient get a wound VAC to start draining that on a regular basis. He should get an appointment with the wound clinic here at [facility]. 2. His buttocks, extending down to the gluteal folds are covered in a loss of skin with redness of the underlying layer. But no deep abscesses or deep loss of tissue. That should receive a barrier cream with what ever wound program the [place] [facility]. 3. Osteomyelitis is still seen on the CT. General surgery has recommended the patient have a PICC line be placed and that the patient be resumed on his Zosyn. The discharge instructions from [place] states that the patient should have an ID consult. We recommend that a telehealth ID consult be obtained. Zosyn should be resumed for Klebsiella, Morganella, and Proteus when the PICC line is in place and for now the patient will be discharged on Cipro 750 mg p.o. twice daily. He is being returned to the half-way facility since there are no acute problems. And I will be speaking to the wound clinic into anesthesia about getting a PICC line for this patient. I will also contact the [facility] wound clinic for him to be seen, if the [place] [facility] can manage to transport him here. Because we do not have the services on Friday or Friday, I am hoping to expedite the patient returning here for outpatient procedures and then return [place] the [place] [facility]. In the meantime I have started him on Cipro 750 mg p.o. twice daily. I did try Levaquin 750 mg a day but the pharmacy dictionary within that prescription plan states that Levaquin is "obsolete" and cannot be prescribed. I am also instructing the half-way facility to resume the usual wound care orders that were given to them by [facility]. If all of this is not able to be done in the SNF setting, he may be a candidate for Swing bed if his insurance would allow. ALLERGIES Allergies Allergy/AdvReac Type Severity Reaction Status Date / Time No Known Drug Allergies Allergy Verified 07/16/24 10:51 MEDICATIONS Ambulatory Orders Medication Instructions Recorded Confirmed carvedilol 25 mg tablet 6.25 mg PO TIDWM 08/04/15 07/17/24 gabapentin 600 mg tablet 600 mg PO TID peripheral 06/28/17 07/17/24 (Neurontin) neuropathy ##30 acetaminophen 500 mg tablet 500 mg PO Q6H 12/02/17 07/17/24 atorvastatin 40 mg tablet 40 mg PO DAILY 12/02/17 07/17/24 multivitamin (Multiple Vitamins 1 tab PO DAILY 12/02/17 07/17/24 tablet) apixaban 2.5 mg tablet (Eliquis) 5 mg PO BID 09/04/22 07/17/24 lidocaine 5 % topical patch 1 patch topical DAILY PRN Pain 09/04/22 07/17/24 furosemide 20 mg tablet 40 mg (2 x 20 mg) PO DAILY #40 tabs 09/14/22 07/17/24 albuterol sulfate 90 mcg/actuation 1 - 2 puff inhalation Q4HR PRN 01/15/23 07/17/24 aerosol inhaler (Ventolin HFA) Shortness Of Air/Wheezing #1 ea ascorbic acid (vitamin C) 500 mg 500 mg PO DAILY 06/21/24 07/17/24 capsule calcium 600 mg (as 1 cap PO DAILY 06/21/24 07/17/24 carbonate)-vitamin D3 5 mcg (200 unit) capsule (Calcium 600 + D(3)) ciprofloxacin HCl 750 mg tablet 750 mg PO BID 7 days #14 tabs 07/17/24 PHYSICAL EXAM AT DISCHARGE General Appearance: positive No acute distress and Other ( Morbidly obese, disheveled, flat affect. states he is still decisional and is a full code. Paraplegic with legs externally rotated, bent at the knee, splayed, pressure of lateral malleolus on each leg.) Eyes Bilateral: positive PERRL and EOMI ENT: positive Other (Disheveled, unshaven, poor dentition) Neck: positive Thyroid nml, No JVD and Other (Shotty adenopathy) Respiratory: positive No respiratory distress, Breath sounds nml and Other (Large, barrel chest, no respiratory distress.) Cardiovascular: positive Regular rate & rhythm (Very distant cardiac tones. Same as on admission.) Abdomen: positive Non-tender, Nml bowel sounds and Other (Very large, obese abdominal pannus and unable to assess for organomegaly); negative Guarding or Rebound Skin: positive Warm, Dry, Pallor and Other (see description in "hospital course" of rectum and buttocks) Extremities: positive Non-tender and Other (Paraplegia below the waist) Neurologic/Psychiatric: positive Oriented x3, CN's nml (2-12) and Depressed mood/affect; negative Motor nml LABS 07/17/24 05:19 07/17/24 05:19 TIME SPENT Time Spent in Discharge (Minutes): 50 Discharge Plan Discharge Patient Disposition: [facility] DC/Xfer Condition: Stable Medically Cleared Date:: 07/17/24 Prescriptions: New ciprofloxacin HCl 750 mg tablet 750 mg PO BID 7 Days Qty: 14 0RF Continued carvedilol 25 MG tablet 6.25 mg PO TIDWM Rx Instructions: hold if SBP <110 or HR <60 gabapentin [Neurontin] 600 MG tablet 600 mg PO TID Qty: 30 3RF acetaminophen 500 MG tablet 500 mg PO Q6H MDD NTE 3000mg in 24 hours multivitamin [Multiple Vitamins] 1 EACH tablet 1 tab PO DAILY atorvastatin 40 MG tablet 40 mg PO DAILY lidocaine 1 PATCH adhesive patch,medicated 1 patch topical DAILY PRN (Reason: Pain) Eliquis 2.5 MG tablet 5 mg PO BID furosemide 20 MG tablet 40 mg PO DAILY Qty: 40 0RF albuterol sulfate [Ventolin HFA] 200 PUFFS/18 GM HFA aerosol inhaler 1 - 2 puff inhalation Q4HR PRN (Reason: Shortness Of Air/Wheezing) Qty: 1 0RF ascorbic acid (vitamin C) 500 mg capsule 500 mg PO DAILY Calcium 600 + D(3) 600 mg-5 mcg (200 unit) capsule 1 cap PO DAILY Diet: Regular Interventions: Discharge Last Done: 07/17/24 15:04 Discharge Checklist - Nursing Last Done: 07/17/24 15:04 Health Concerns: I was able to review the discharge summary from [facility]. He has incomplete paraplegia complicated by neurogenic bladder with a chronic Hull, coronary artery disease, diastolic heart failure, COPD, atrial fibrillation on apixaban who came to [facility] on June 22 with a decubitus ulcer. He lives at [facility] for over a year because of immobility and had developed a decubitus ulcer due to his immobility prior to getting to [facility]. While at the SNF he was put on oral vancomycin for the infection of the ulcer. When we evaluated him here in our ER, he was above our level ability to deliver care due to need for ID, plastics, surgery, and the depth of the ulcer. He was transferred to [place] from our emergency room because of the complicated nature of his sacral decubitus ulcer. And he was debrided on June 22 at [place] and had a diverting colostomy June 29. His hospital course was complicated by intermittent hypoxia secondary to atelectasis and/or COPD. That resolved with steroids and nebs. His wound care was regular wound care for sacral ulcer. And he was found to have osteomyelitis of the coccyx. Used to be on antibiotics until July 09. Used to be with Zosyn. And the PICC line was to be removed after completion of IV antibiotic courses on July 10. He was to have PCP follow-up and [place] [facility] [facility] [place] [facility]. I know that [place] [facility] [place] [facility] but I do not know if he seen a infectious disease person. Dr. Fifi Jordan was the infectious disease attending. She noted that the June 10 culture was positive for beta-hemolytic strep, MRSA, Proteus, started on the oral vancomycin for a week, then went to our hospital. Our hospital showed a soft tissue abscess of 4.3 x 2.1 x 5.7 cm dorsal and inferior to the lower coccyx with a air and osteomyelitis of the coccyx. Necrotic tissue was debrided down to the muscle. The IntraOp culture from June 22 was positive for Klebsiella oxytocin, Morganella Morgani. He was continued on ceftriaxone, metronidazole, and vancomycin. His blood cultures were negative at 48 hours. He was then transition to Zosyn. And was discharged on Zosyn to stop on July 09. The rest of his discharge diagnoses were chronic heart failure with preserved ejection fraction, euvolemic. Left eye hordeolum. Coronary artery disease that was asymptomatic. Hyperlipidemia, A-fib, and a history of a DVT of the right lower extremity for which he was on Eliquis. He was also felt to have had a UTI associated with an indwelling urethral catheter. Many of his problems were felt to be chronic and unresolved at the time of discharge. Surgery and I spent quite a bit of time discussing the case this morning. His GI bleed appears to have resolved. She really thinks it is a stoma issue. He is not having a GI bleed within the bowel. The stoma appeared quite irritated. And he is forming normal stool in the bag. He has no fresh blood. Hemoglobin has dropped to 11 from 13. She feels he is stable to return back [place] [facility]. But she would like to escalate the treatment of his sacral decub. She strongly feels he needs a wound VAC. In the outpatient setting, he needs to be sent to the wound clinic here at the hospital and get that wound VAC. She also feels that he still has osteomyelitis. On the CT that we did for his GI bleed, he continues to have osteomyelitis. So we will he will need further MRSA treatment and multi bug treatment with Zosyn. that would mean a PICC line At this time he is hemodynamically stable, and (much like they stated on the discharge summary for [facility]) with stable chronic problems that need to be addressed. I am sending [place] back [place] [facility] [place] [facility]. But I am making arrangements for him to come back and get a PICC line with anesthesia. And I will be sending orders to the [place] [facility] for him to resume his Zosyn. I would recommend that he be on Zosyn for minimum of 4 weeks. I am also contacting the wound clinic to make sure this patient is seen expeditiously. None of these things can be accomplished today or tomorrow since is it is the weekend and we are a critical access hospital. I will follow-up with the [place] [facility] on Friday. Plan of Treatment: 1. Please make appointment for PICC line with Anesthesia at [facility] 2. Started on Cipro 750 twice daily for osteomyelitis and presumed cultures of Klebsiella, Moraxella and beta hemolytic strep 3. Once PICC in place start Zosyn again and stop the cipro. 4. DC instrucitons from [facility] he needs an ID consult. Please find a [facility] ID service to do the consult 5. Resume previous wound instructions 6. Please send to wound clinic here at hospital for appointment to start a wound vac. Print Language: Citizen [place] Stand Alone Forms: SNF Discharge Follow-up Care: [facility] [Other] - 1 Week
[2024-07-17 13:07] VITALS: O2SAT 91
[2024-07-17] MEDS: ACETAMINOPHEN 325 MG TABLET PO PRN (14:12)
== END 2024-07-17 14:15 ==
LOC: ED 10:32 → MS2 10:32
PROVIDERS: ADMIT Specialist; ATTEND Specialist
DX: M86.68 Other chronic osteomyelitis, other site; Z79.01 Long term (current) use of anticoagulants; E66.01 Morbid (severe) obesity due to excess calories; I50.32 Chronic diastolic (congestive) heart failure; I25.10 Atherosclerotic heart disease of native coronary artery without angina pectoris; N31.9 Neuromuscular dysfunction of bladder, unspecified; Z86.14 Personal history of Methicillin resistant Staphylococcus aureus infection; K94.01 Colostomy hemorrhage; J44.9 Chronic obstructive pulmonary disease, unspecified; E78.5 Hyperlipidemia, unspecified; I48.91 Unspecified atrial fibrillation; G82.22 Paraplegia, incomplete; Z86.718 Personal history of other venous thrombosis and embolism; I11.0 Hypertensive heart disease with heart failure; Z96.0 Presence of urogenital implants; Z68.41 Body mass index [BMI] 40.0-44.9, adult; L89.154 Pressure ulcer of sacral region, stage 4

== ENCOUNTER 2025-01-13 09:38 | Inpatient (IN) ==
--- NOTE | 2025-01-13 09:53 | ED Physician Documentation ---
PD HPI ALTERED MENTAL STATUS Stated complaint Stated Complaint: BP ISSUES Chief complaint Chief Complaint: General History obtained from History obtained from: Patient, EMS (EMS called for the patient during the night for lower oxygen and less responsive. He seemed normal on their arrival. Called again this morning for low blood pressure in the 80s. Normal BP on their arrival. Slightly soft here in the ER at 98 systolic. He denies fevers. 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/24 (Neurontin) neuropathy ##30 acetaminophen 500 mg tablet 500 mg PO Q6H 12/02/17 atorvastatin 40 mg tablet 40 mg PO DAILY 12/02/1710/03 multivitamin (Multiple Vitamins 1 tab PO DAILY 8 10/27/24 tablet) apixaban 2.5 mg tablet (Eliquis) 5 mg PO BID 09/04/22 10/27/24 albuterol sulfate 90 mcg/actuation 1 - 2 puff inhalati on Q4HR PRN 01/15/23 10/27/24 aerosol inhaler (Ventolin HFA) Shortness Of Air/Wheezi ng #1 ea ascorbic acid (vitamin C) 500 mg 500 mg PO DAILY 06/2110/27/24 capsule calcium 600 mg (as 1 cap PO DAILY 06/21/2410/03 carbonate)-vitamin D3 5 mcg (200 unit) capsule (Calcium 600 + D(3)) furosemide 40 mg tablet 40 mg PO BID 09/17/24 carvedilol 6.25 mg tablet 6.25 mg PO PRN 12/16/2411/30 camphor-menthol 0.5 %-0.5 % lotion 1 applic topical QI D 12/31/24 12/31/24 (Anti-Itch (menthol-camphor)) diphenhydramine HCl 25 mg capsule 25 mg PO QID PRN itc angel 12/31/24 12/31/24 (Aler-Cap) polyethylene glycol 3350 17 17 g PO DAILY PRN constipa tion if 12/31/24 12/31/24 gram/dose oral powder (Miralax) no BM times 3 days potassium chloride 20 mEq 20 meq PO DAILY supplement 0 12/31/24 12/31/24 tablet,extended release(part/cryst) sennosides 8.6 mg tablet (Laxative 8.6 mg PO DAILY 10/2612/31/24 (sennosides)) Allergies Allergies Allergy/AdvReac Type Severity Reaction Status Date / Time No Known Drug Allergies Allergy Verified 01/13/25 09:55 [facility] Active Problems All Active Problems (Updated 01/13/25 @ 15:16 by RAMON Rouse) Sepsis (Acute) SIRS (systemic inflammatory response syndrome) (Acute) Transient hypotension (Acute) Infected wound (Acute) Decubitus ulcer of sacral area (Acute) Irritant contact dermatitis due to other agents (Acute) Chronic osteomyelitis of coccyx (Acute) Colostomy complication (Acute) Pressure ulcer of sacral region, stage 4 (Acute) Medical History Medical History (Updated 01/13/25 @ 15:16 by RAMON Rouse) Acute osteomyelitis of pelvic region UTI (urinary tract infection) 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 Morbid obesity due to excess calories Chronic diastolic (congestive) heart failure Chronic low back pain Cardiomegaly Old myocardial infarct Hyperlipemia Hypertension Pacemaker Paraplegia, incomplete Surgical History Surgical History Hx of spinal surgery History of colostomy (~06/29/24) (laparoscopic, @ [facility], diverted for sacral wound) Presence urogenital implant Presence of right artificial knee joint Family History Family History (Updated 07/16/24 @ 16:56 by Paras Bronson) Brother Congenital heart disease CAD (coronary artery disease) Mother Family history unknown Father Family history unknown Social History Social History Smoking Status: Never smoker Second hand tobacco smoke exposure: No Do you dip or chew tobacco?: No Do you vape?: No Living arrangement: long-term ([facility]) Marital Status: Living Condition: Alone and With spouse/s.o. Relationship: Level: Dependent Do you feel safe in your home environment?: Yes Suffered physical, verbal, emotional, or financial abuse?: No History of Abuse: No Substance Use: denies use POLST Patient has POLST: Yes POLST Status: DNR Exam Exam Vital Signs: Vital Signs x48h Pulse Resp BP Pulse Ox O2 Flow Rate 01/13/25 14:00 60 18 114/56 L 95 2 Constitutional normal general appearance, no apparent distress and average body habitus HENMT oropharynx normal Neck/C-Spine supple and no meningeal signs Lymph no lymphadenopathy noted Respiratory breath sounds equal bilaterally and normal respiratory effort Cardiovascular normal heart rate noted Gastrointestinal abdomen soft to palpation, nontender to palpation and nondistended The sacral area shows an decubitus down to the fatty tissue. There is some redness surrounding and some mild purulent drainage. No visible bone on exam. Old record shows a history of a chronic decubitus in that area. Genitourinary no CVA tenderness and no inguinal lymphadenopathy Indwelling catheter noted with drainage and output. Extremities no tenderness and full ROM Neurology no focal motor deficit noted and no sensory deficits noted Psychiatry mental status abnormal (por memory of recent events. Alert and conversant in the ED about symptoms.), orientation abnormal (disoriented to time), thought process normal and memory abnormal (short term memory loss) Results Vitals Vitals: Vital Signs - 24 hr 01/13/25 09:49 01/13/25 11:37 01/13/25 12:12 Temperature 36.7 C 37 C Temperature Source Temporal Artery Scan Oral Pulse Rate 84 87 75 Respiratory Rate 20 18 20 Blood Pressure 115/55 L 98/59 L 128/72 O2 Saturation 98 96 97 O2 Source Nasal cannula Nasal cannula Room air If not protocol: Oxygen Flow, liters/minute 2 2 Pain Intensity 0 01/13/25 14:00 Temperature Temperature Source Pulse Rate 60 Respiratory Rate 18 Blood Pressure 114/56 L O2 Saturation 95 O2 Source Nasal cannula If not protocol: Oxygen Flow, liters/minute 2 Pain Intensity Oxygen O2 Source Nasal cannula Labs Labs: Microbiology 01/13/25 10:27 Wound Culture - Preliminary Skin - Wound Laboratory Tests 01/13/25 01/13/25 01/13/25 10:17 10:18 11:26 WBC 16.0 H RBC 3.92 L Hgb 10.2 L Hct 32.8 L MCV 83.7 MCH 26.0 L MCHC 31.1 L RDW 17.2 H Plt Count 395 MPV 9.4 Neut # (Auto) 12.2 H Lymph # (Auto) 2.2 Lyon # (Auto) 1.0 Eos # (Auto) 0.4 Baso # (Auto) 0.1 Absolute Nucleated RBC 0.00 Nucleated RBC % 0.0 Sodium 131 L Potassium 4.1 Chloride 97 L Carbon Dioxide 29 Anion Gap 5.0 L BUN 25 H Creatinine 0.9 Estimated GFR (MDRD) 81 L Glucose 157 H Lactic Acid 2.6 H Calcium 8.3 L Magnesium 2.2 Total Bilirubin 0.4 AST 40 ALT 40 Alkaline Phosphatase 128 H C-Reactive Protein 16.6 H Total Protein 6.7 Albumin 2.4 L Globulin 4.3 H Albumin/Globulin Ratio 0.6 L Lipase 12 Procalcitonin Immunoas 0.10 Urine Color YELLOW Urine Clarity SL. CLOUDY Urine pH >=9.0 H Ur Specific [place] 1.010 Urine Protein TRACE Urine Glucose (UA) NEGATIVE Urine Ketones NEGATIVE Urine Occult Blood SMALL H Urine Nitrite POSITIVE H Urine Bilirubin NEGATIVE Urine Urobilinogen 0.2 (NORMAL) Ur Leukocyte Esterase LARGE H Urine RBC 0-5 Urine WBC 11-25 H Ur Squamous Epith Cells NONE SEEN Urine Crystals 0-2 Triple Phosphate Urine Bacteria Moderate H Urine Culture Comments INDICATED Nasal Adenovirus (PCR) NOT DETECTED Nasal B. parapertussis DNA (PCR) NOT DETECTED Nasal Coronavir 229E PCR NOT DETECTED Nasal Coronavir HKU1 PCR NOT DETECTED Nasal Coronavir NL63 PCR NOT DETECTED Nasal Coronavir OC43 PCR NOT DETECTED Nasal Enterovir/Rhinovir PCR NOT DETECTED Nasal Influenza B PCR NOT DETECTED Nasal Influenza A PCR NOT DETECTED Nasal Parainfluen 1 PCR NOT DETECTED Nasal Parainfluen 2 PCR NOT DETECTED Nasal Parainfluen 3 PCR NOT DETECTED Nasal Parainfluen 4 PCR NOT DETECTED Nasal RSV (PCR) NOT DETECTED Nasal B.pertussis DNA PCR NOT DETECTED Nasal C.pneumoniae (PCR) NOT DETECTED Tiago Human Metapneumo PCR NOT DETECTED Nasal M.pneumoniae (PCR) NOT DETECTED Nasal SARS-CoV-2 (PCR) NOT DETECTED Rads (name of study) pelvic CT: Relevant Findings:: Final report received and EMP independent interpretation of test Interpretation: COMPARISON: CT abdomen/pelvis 09/16/2024 FINDINGS: Image quality: Excellent. Soft tissues: Small focus of superficial gas at the lower margin of the [id number] in the right ischial region with mild surrounding fat stranding could represent a small area of ulceration, but is not completely included on this exam. Fecal-like material at the intergluteal cleft with suspected surrounding ulceration extending to the inferior margin of the sacrum. No acute osseous erosions are seen. No intrapelvic extension is seen. Trace presacral edema. Bowel and peritoneum: No bowel distension. No pathologic free fluid. Postsurgical changes at the sigmoid colon. Left abdominal colostomy. Multiple colonic diverticula are seen. Vessels: No infrarenal aortic aneurysm. Reproductive organs: Hull catheter is inflated within the prostatic urethra. Recommend repositioning. Bladder: Circumferential bladder wall thickening. Bladder contains a few foci of gas. Pelvic lymph nodes: No pelvic adenopathy by size criteria. Bones: No aggressive osseous abnormality. The inferior sacrum and coccyx are absent, likely postsurgical. Other: No significant ventral or inguinal hernia. Small fat-containing periumbilical hernia. IMPRESSION: 1.Hull catheter is seen with balloon inflated in the prostatic urethra. Recommend repositioning. Circumferential bladder wall thickening may be secondary to chronic outlet obstruction or cystitis. 2.Fecal-like material is seen in the intergluteal cleft with suspected adjacent subcutaneous ulceration. No significant fluid component is seen. Material extends to the inferior margin of the sacrum without signs of osteomyelitis. Mild presacral edema but no definite signs of intrapelvic extension. 3.Small focus of gas in the subcutaneous tissues overlying the right ischial tuberosity at the inferior margin of this exam with subcutaneous edema, incompletely evaluated and ulceration is not excluded. 4.Postsurgical changes in the sigmoid colon end colostomy of the left abdomen. Colonic diverticulosis. Reviewed by: Yovani Hammond MD on 01/13/2025 1:15 PM PDT PD Medical Decision Making ED course Complexity details: considered differential (Concern for developing infection versus medication side effect versus under hydration or other concerns.) and d/w patient ED course: EMS was called for the patient during the night with some altered mentation and low oxygen but had unlabored breathing and normal oxygenation on their arrival. No transfer initiated. They were called back again today because of low blood pressure noted by staff this morning. They found his blood pressure to be normotensive. He was transported to us for evaluation. The patient is awake and conversant. Initial normal blood pressure is adequate at 115 systolic. However it did lower down to 98 systolic and improved with some IV fluids. He does not have any fever. I would be concerned however with his symptoms of infection or impending sepsis as there not had been any recent medication changes and apparently states he has been intaking food and fluids normally. I did some lab evaluation to screen for concern of infection. His white count is elevated at 16,000. His CRP is elevated at 16 and his lactate is mildly elevated at 2.6. Procalcitonin is negative. We did do a culture of his sacral area and the result is pending. Chest x-ray did not show any signs of infiltrates. Will we will do a respiratory panel although he did not describe any URI symptoms. We can do a urine culture though indwelling Hull is likely to be contaminated. At this point the main potential source of infection would be the sacral decubitus showing signs of some surrounding cellulitis and some purulent discharge. Given some markers for potential sepsis/SIRS, I did feel it prudent to talk with the hospitalist about hospitalization. The patient was given Rocephin and clindamycin initially IV. Blood cultures had been obtained. The hospitalist requested that we do a CT to evaluate for signs of osteo. This can be done and I will contact back the hospitalist again. At this point most likely admission to the hospital for initiation of antibiotic treatment and to ensure he does not develop more flagrant sepsis syndrome. Discharge Plan Discharge Patient Disposition: ED Place in Observation Condition: Stable Clinical Impression: Decubitus ulcer of sacral area, Infected wound, Transient hypotension, SIRS (systemic inflammatory response syndrome) Interventions: ED Admission Assessment Last Done: 01/13/25 15:00
[2025-01-13 10:23] LABS: BASOPHILS # (AUTO) 0.1 10^3/uL (0.0-0.1); BASOPHILS % (AUTO) 0.5 %; EOSINOPHILS # (AUTO) 0.4 10^3/uL (0.0-0.7); EOSINOPHILS % (AUTO) 2.5 %; HCT - HEMATOCRIT 32.8 % (42.0-52.0); HGB - HEMOGLOBIN 10.2 g/dL (14.0-18.0); LYMPHOCYTES # (AUTO) 2.2 10^3/uL (1.5-3.5); LYMPHOCYTES % (AUTO) 13.4 %; MEAN CORPUSCULAR HGB CONC 31.1 g/dL (32.0-36.0); MEAN CORPUSCULAR VOLUME 83.7 fL (80.0-94.0); MEAN PLATELET VOLUME 9.4 fL (7.4-11.4); MONOCYTES % (AUTO) 6.5 %; NEUTROPHILS # (AUTO) 12.2 10^3/uL (1.5-6.6); NEUTROPHILS % (AUTO) 76.2 %; PLT - PLATELET COUNT 395 10^3/uL (130-450); RED BLOOD COUNT 3.92 10^6/uL (4.70-6.10); RED CELL DISTRIBUTION WIDTH 17.2 % (12.0-15.0)
--- OUTSIDE RECORDS SUMMARY | 2025-01-13 10:25 | EXTERNAL MEDICAL SUMMARY RPT | Continuity of Care Document ---
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 [facility] 2024-10-24 05:46 Encounter for screening for lip oid disorders [facility] 2024-10-25 07:37 Bacterial infection, unspecifie d [facility] 2024-10-25 07:37 Moderate protein-calorie malnut [employer] [facility] 2024-10-25 07:37 Pressure ulcer of sacral region , stage 4 [facility] 2024-10-25 07:37 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 [facility] 2024-10-25 07:38 Bacterial infection, unspecifie d [facility] 2024-10-25 07:38 Moderate protein-calorie malnut rition [facility] 2024-10-25 07:38 Pressure ulcer of sacral region , stage 4 [facility] 2024-10-25 07:38 FDC (current) use of anti coagulants [facility] 2024-10-25 08:14 Encounter for screening for lip oid disorders [facility] 2024-10-25 08:15 Encounter for screening for lip oid disorders [facility] 2024-10-25 08:20 Encounter for screening for lip oid disorders [facility] 2024-10-25 11:18 [facility], [facility] 2024-10-27 12:40 Bacterial infection, unspecifie d [facility] 2024-10-27 12:42 Encounter for screening for lip oid disorders [facility] 2024-11-01 12:16 Irritant contact dermatitis due to other agents [facility] 2024-11-01 12:16 Pressure ulcer of sacral region , stage 4 [facility] 2024-11-01 12:16 Osteomyelitis of jose tebra, sacral and sacrococcygeal region [facility] 2024-11-04 08:53 Irritant contact dermatitis due to other agents [facility] 2024-11-04 08:53 Pressure ulcer of sacral region , stage 4 [facility] 2024-11-04 08:53 Osteomyelitis of jose tebra, sacral and sacrococcygeal region [facility] 2024-11-09 09:01 Irritant contact dermatitis due to other agents [facility] 2024-11-09 09:01 Pressure ulcer of sacral region , stage 4 [facility] 2024-11-09 09:01 Osteomyelitis of jose tebra, sacral and sacrococcygeal region [facility] 2024-11-09 15:05 Irritant contact dermatitis due to other agents [employer] 2024-11-09 15:05 Pressure ulcer of sacral region , stage 4 [employer] [facility] 2024-11-09 15:05 Osteomyelitis of jose tebra, sacral and sacrococcygeal region [facility] 2024-11-09 15:46 Irritant contact dermatitis due to other agents [employer] 2024-11-09 15:46 Pressure ulcer of sacral region , stage 4 [facility] 2024-11-09 15:46 Osteomyelitis of jose tebra, sacral and sacrococcygeal region [facility] 2024-11-09 15:53 Irritant contact dermatitis due to other agents [employer] 2024-11-09 15:53 Pressure ulcer of sacral region , stage 4 [facility] 2024-11-09 15:53 Osteomyelitis of jose tebra, sacral and sacrococcygeal region [facility] 2024-11-10 08:08 Irritant contact dermatitis due to other agents [employer] [facility] 2024-11-10 08:08 Pressure ulcer of sacral region , stage 4 [facility] 2024-11-10 08:08 Osteomyelitis of jose tebra, sacral and sacrococcygeal region [facility] 2024-11-12 11:23 Irritant contact dermatitis due to other agents [facility] 2024-11-12 11:23 Pressure ulcer of sacral region , stage 4 [facility] 2024-11-12 11:23 Osteomyelitis of jose tebra, sacral and sacrococcygeal region [facility] 2024-11-16 11:15 Irritant contact dermatitis due to other agents [facility] 2024-11-16 11:15 Pressure ulcer of sacral region , stage 4 [facility] 2024-11-16 11:15 Osteomyelitis of jose tebra, sacral and sacrococcygeal region [facility] 2024-11-23 14:28 Irritant contact dermatitis due to other agents [facility] 2024-11-23 14:28 Pressure ulcer of sacral region , stage 4 [facility] 2024-11-23 14:28 Osteomyelitis of jose tebra, sacral and sacrococcygeal region [facility] 2024-11-23 14:47 Irritant contact dermatitis due to other agents [facility] 2024-11-23 14:47 Pressure ulcer of sacral region , stage 4 [facility] 2024-11-23 14:47 Osteomyelitis of jose tebra, sacral and sacrococcygeal region [facility] 2024-11-25 00:05 Pressure ulcer of sacral region , stage 3 [facility] 2024-12-01 15:16 Irritant contact dermatitis due to other agents [facility] 2024-12-01 15:16 Pressure ulcer of sacral region , stage 4 [facility] 2024-12-01 15:16 Osteomyelitis of jose tebra, sacral and sacrococcygeal region [facility] 2024-12-07 14:58 Irritant contact dermatitis due to other agents [facility] 2024-12-07 14:58 Pressure ulcer of sacral region , stage 4 [facility] 2024-12-07 14:58 Osteomyelitis of jose tebra, sacral and sacrococcygeal region [facility] 2024-12-07 16:52 Irritant contact dermatitis due to other agents [facility] 2024-12-07 16:52 Pressure ulcer of sacral region , stage 4 [facility] 2024-12-07 16:52 Osteomyelitis of jose tebra, sacral and sacrococcygeal region [facility] 2024-12-07 16:53 Irritant contact dermatitis due to other agents [facility] 2024-12-07 16:53 Pressure ulcer of sacral region , stage 4 [facility] 2024-12-07 16:53 Osteomyelitis of jose tebra, sacral and sacrococcygeal region [facility] 2024-12-08 08:51 Irritant contact dermatitis due to other agents [facility] 2024-12-08 08:51 Pressure ulcer of sacral region , stage 4 [facility] 2024-12-08 08:51 Osteomyelitis of jose tebra, sacral and sacrococcygeal region [facility] 2024-12-08 15:51 Irritant contact dermatitis due to other agents [facility] 2024-12-08 15:51 Pressure ulcer of sacral region , stage 4 [facility] 2024-12-08 15:51 Osteomyelitis of jose tebra, sacral and sacrococcygeal region [facility] 2024-12-09 13:59 Pressure ulcer of unspecified s ite, stage 4 [facility] 2024-12-09 13:59 Cough, unspecified idbey [facility] th 2024-12-09 13:59 Wheezing [facility] 2024-12-16 12:02 Irritant contact dermatitis due to other agents [facility] 2024-12-16 12:02 Pressure ulcer of sacral region , stage 4 [facility] 2024-12-16 12:02 Osteomyelitis of jose tebra, sacral and sacrococcygeal region [facility] 2024-12-16 13:31 Irritant contact dermatitis due to other agents [facility] 2024-12-16 13:31 Pressure ulcer of sacral region , stage 4 [facility] 2024-12-16 13:31 Osteomyelitis of jose tebra, sacral and sacrococcygeal region [facility] 2024-12-16 15:37 Irritant contact dermatitis due to other agents [facility] 2024-12-16 15:37 Pressure ulcer of sacral region , stage 4 [facility] 2024-12-16 15:37 Osteomyelitis of jose tebra, sacral and sacrococcygeal region [facility] 2024-12-27 14:39 Irritant contact dermatitis due to other agents [facility] 2024-12-27 14:39 Pressure ulcer of sacral region , stage 4 [facility] 2024-12-27 14:39 Osteomyelitis of jose tebra, sacral and sacrococcygeal region [facility] 2024-12-27 14:55 Irritant contact dermatitis due to other agents [facility] 2024-12-27 14:55 Pressure ulcer of sacral region , stage 4 [facility] 2024-12-27 14:55 Osteomyelitis of jose tebra, sacral and sacrococcygeal region [facility] 2024-12-27 15:49 Irritant contact dermatitis due to other agents [facility] 2024-12-27 15:49 Pressure ulcer of sacral region , stage 4 [facility] 2024-12-27 15:49 Osteomyelitis of jose tebra, sacral and sacrococcygeal region [facility] 2024-12-27 15:51 Irritant contact dermatitis due to other agents [facility] 2024-12-27 15:51 Pressure ulcer of sacral region , stage 4 [facility] 2024-12-27 15:51 Osteomyelitis of jose tebra, sacral and sacrococcygeal region [facility] 2025-01-03 11:48 Irritant contact dermatitis due to other agents [employer] 2025-01-03 11:48 Pressure ulcer of sacral region , stage 4 [facility] 2025-01-03 11:48 Osteomyelitis of jose tebra, sacral and sacrococcygeal region [facility] 2025-01-03 12:04 Irritant contact dermatitis due to other agents [facility] 2025-01-03 12:04 Pressure ulcer of sacral region , stage 4 [facility] 2025-01-03 12:04 Osteomyelitis of jose tebra, sacral and sacrococcygeal region [facility] 2025-01-10 08:54 Irritant contact dermatitis due to other agents [facility] 2025-01-10 08:54 Pressure ulcer of sacral region , stage 4 [facility] 2025-01-10 08:54 Osteomyelitis of jose tebra, sacral and sacrococcygeal region [facility] 2025-01-10 13:18 Atherosclerotic hear t disease of [place] coronary artery without angina pectoris [facility] 2025-01-10 15:56 Irritant contact dermatitis due to other agents [facility] 2025-01-10 15:56 Pressure ulcer of sacral region , stage 4 [facility] 2025-01-10 15:56 Osteomyelitis of jose tebra, sacral and sacrococcygeal region [facility] Results/Labs test date facility value unit notes Result panel 1 NUCLEATED RED BLOOD CELLS AUTO 2024-10-23 19:45 [facility] 0.0 /100wbc (missing) NRBC ABSOLUTE COUNT (AUTO) 2024-10-23 19:45 [facility] 0.00 x10 3/ul (missing) BASOPHILS # (AUTO) 2024-10-23 19:45 [facility] 0.1 10 3/ul (missing) MONOCYTES # (AUTO) 2024-10-23 19:45 [facility] 0.7 10 3/ul (missing) EOSINOPHILS # (AUTO) 2024-10-23 19:45 [facility] 1.1 10 3/ul (missing) MEAN PLATELET VOLUME 2024-10-23 19:45 [facility] 10.0 fl (missing) HGB - HEMOGLOBIN 2024-10-23 19:45 [facility] 12.1 g/dl (missing) WHITE BLOOD COUNT 2024-10-23 19:45 [facility] 13.1 x10 3/ul (missing) RED CELL DISTRIBUTION WIDTH 2024-10-23 19:45 [facility] 19.7 % (missing) MEAN CORPUSCULAR HEMOGLOBIN 2024-10-23 19:45 [facility] 27.3 pg (missing) MEAN CORPUSCULAR HGB CONC 2024-10-23 19:45 [facility] 30.9 g/dl (missing) PLT - PLATELET COUNT 2024-10-23 19:45 [facility] 10 3/ul (missing) HCT - HEMATOCRIT 2024-10-23 19:45 [facility] 39.1 % (missing) LYMPHOCYTES # (AUTO) 2024-10-23 19:45 [facility] [employer] 4.3 10 3/ul (missing) RED BLOOD COUNT 2024-10-23 19:45 [facility] 4.44 10 6/ul (missing) NEUTROPHILS # (AUTO) 2024-10-23 19:45 [facility] 6.8 10 3/ul (missing) MEAN CORPUSCULAR VOLUME 2024-10-23 19:45 [facility] 88.1 fl (missing) DIFFERENTIAL COMMENT 2024-10-23 19:45 [employer] [facility] MANUAL=AUTO DIFF (missing) MANUAL DIFFERENTIAL AGREES WITH AUTO DIFFERENTIAL PLATELET ESTIMATE, MANUAL 2024-10-23 19:45 [facility] NORMAL (130-450,000) (missing) (missing) PLATELET MORPHOLOGY 2024-10-23 19:45 [facility] NORMAL APPEARANCE (missing) (missing) RBC MORPHOLOGY (MULTIPLE) 2024-10-23 19:45 [facility] NORMAL APPEARANCE (missing) (missing) WBC MORPHOLOGY (MULTIPLE) 2024-10-23 19:45 [facility] NORMAL APPEARANCE (missing) (missing) Result panel 2 BILIRUBIN,TOTAL 2024-10-24 05:00 [facility] 0.5 mg /dl As of March 2023 testing method has changed, this may include reference ranges. ALBUMIN/GLOBULIN RATIO 2024-10-24 05:00 [facility] 0.8 (missing) (missing) CREATININE 2024-10-24 05:00 [facility] 0.8 mg/dl As of March 2023 testing method has changed, this may include reference ranges. CRP - C-REACTIVE PROTEIN 2024-10-24 05:00 [facility] 1.8 mg/dl Unknown As of March 2023 testing method has changed, this may include reference ranges. CHLORIDE 2024-10-24 05:00 [facility] 101 mmol/l As of March 2023 testing method has changed, this may include reference ranges. ALKALINE PHOSPHATASE 2024-10-24 05:00 [facility] 119 iu/l As of March 2023 testing method has changed, this may include reference ranges. SODIUM 2024-10-24 05:00 [facility] 138 mmol/l Unknown As of March 2023 testing method has changed, this may include reference ranges. BUN - BLOOD UREA NITROGEN 2024-10-24 05:00 [facility] 16 mg/dl As of Mar testing method has changed, this may include reference ranges. ALBUMIN 2024-10-24 05:00 [facility] 2.8 g/dl As of March 2023 testing method has changed, this may include reference ranges. GLOBULIN 2024-10-24 05:00 [facility] 3.7 g/dl (missing) POTASSIUM 2024-10-24 05:00 [facility] 3.8 mmol/l As of March 2023 testing method has changed, this may include reference ranges. CARBON DIOXIDE - CO2 2024-10-24 05:00 [facility] 32 mmol/l As of March 2023 testing method has changed, this may include reference ranges. ANION GAP 2024-10-24 05:00 [facility] 5.0 (missing ) (missing) TOTAL PROTEIN 2024-10-24 05:00 [facility] 6.5 g/dl As of March 2023 testing method has changed, this may include reference ranges. AST ASPARTATE AMINOTRANSFERASE 2024-10-24 05:00 [facility] 82 iu/l As of March 2023 testing method has changed, this may include reference ranges. ALT ALANINE AMINOTRANSFERASE 2024-10-24 05:00 [facility] 87 iu/l As of March 2023 testing method has changed, this may include reference ranges. CALCIUM 2024-10-24 05:00 [facility] 9.0 mg/dl As of March 2023 testing method has changed, this may include reference ranges. GFR - MDRD 2024-10-24 05:00 [facility] 92 (in g) Social History date description facility
--- NOTE | 2025-01-13 10:34 | XRAY Report ---
PROCEDURE: XR Chest 1V INDICATIONS: low BP TECHNIQUE: One view of the chest was acquired. COMPARISON: Chest x-ray 425 FINDINGS: Surgical changes and devices: Pacemaker. Lungs and pleura: No pleural effusions or pneumothorax. No consolidation. Mediastinum: Mediastinal contours appear normal. Heart size is normal. Bones and chest wall: No suspicious bony lesions. Overlying soft tissues appear unremarkable. IMPRESSION: No acute cardiopulmonary process. Reviewed by: Ariana Lujan MD on 01/13/2025 10:33 AM PDT Approved by: Ariana Lujan MD on 01/13/2025 10:33 AM PDT Station ID: [id number]
[2025-01-13] MEDS: SODIUM CHLORIDE 0.9% 500 ML IV STA (10:40)
[2025-01-13 10:42] LABS: ALBUMIN 2.4 g/dL (3.2-5.5); ALBUMIN/GLOBULIN RATIO 0.6 (1.0-2.2); BILIRUBIN,TOTAL 0.4 mg/dL (0.2-1.0); CALCIUM 8.3 mg/dL (8.5-10.3); CREATININE 0.9 mg/dL (0.6-1.3); CRP - C-REACTIVE PROTEIN 16.6 mg/dL (<0.5); MAGNESIUM 2.2 mg/dL (1.7-2.3); POTASSIUM 4.1 mmol/L (3.5-4.5); TOTAL PROTEIN 6.7 g/dL (6.4-8.9)
[2025-01-13] MEDS: cefTRIAXone 1 GM VIAL IVP STA (11:25)
[2025-01-13 11:36] LABS: BILIRUBIN,URINE NEGATIVE (NEGATIVE); GLUCOSE, URINE (UA) NEGATIVE (NEGATIVE); KETONES,URINE (UA) NEGATIVE (NEGATIVE); LEUKOCYTE ESTERASE, URINE LARGE (NEGATIVE); NITRITE,URINE POSITIVE (NEGATIVE); OCCULT BLOOD,URINE SMALL (NEGATIVE); PH,URINE >=9.0 PH (5.0-7.5); PROTEIN,URINE TRACE mg/dL (NEGATIVE); UROBILINOGEN,URINE 0.2 (NORMAL) E.U./dL (NORMAL)
[2025-01-13 11:45] LABS: BACTERIA,URINE Moderate /HPF (None Seen); CLARITY,URINE SL. CLOUDY (CLEAR); RBC,URINE 0-5 /HPF (0-5); SQUAMOUS EPITHELIAL CELL,UR NONE SEEN (<= Few)
[2025-01-13 11:46] LABS: CORONAVIRUS 229E-RESP PCR NOT DETECTED; CORONAVIRUS HKU1-RESP PCR NOT DETECTED; CORONAVIRUS NL63-RESP PCR NOT DETECTED; CORONAVIRUS OC43-RESP PCR NOT DETECTED; HUMAN METAPNEUMOVIRUS NOT DETECTED; INFLUENZA A- RESP PCR PANEL NOT DETECTED; RHINOVIRUS/ENTEROVIRUS NOT DETECTED; SARS-CoV-2 -RESP PCR PANEL NOT DETECTED
[2025-01-13 11:46] LABS: CRYSTALS,URINE 0-2 Triple Phosphate /LPF
[2025-01-13 11:47] LABS: B. PARAPERTUSSIS- RESP PCR PAN NOT DETECTED; B. PERTUSSIS- RESP PCR PANEL NOT DETECTED; C. PNEUMONIAE- RESP PCR PANEL NOT DETECTED; INFLUENZA B - RESP PCR PANEL NOT DETECTED; M. PNEUMONIAE- RESP PCR PANEL NOT DETECTED; PARAINFLUENZA VIRUS 1 NOT DETECTED; PARAINFLUENZA VIRUS 2 NOT DETECTED; PARAINFLUENZA VIRUS 4 NOT DETECTED; RSV- RESP PCR PANEL NOT DETECTED
[2025-01-13] MEDS: SODIUM CHLORIDE 0.9% 1,000 ML IV STA (11:53)
[2025-01-13] MEDS ORDERED: iohexoL-300 100 ML VIAL ONE (12:12)
[2025-01-13] MEDS: iohexoL-300 100 ML VIAL IVP ONE (12:36)
--- NOTE | 2025-01-13 13:20 | CT Report ---
PROCEDURE: CT Pelvis W INDICATIONS: sacral decub CONTRAST: OMNI 300 100 ML TECHNIQUE: After the administration of intravenous contrast, a CT scan of the pelvis was performed. Images were recorded and evaluated at appropriate window settings. Reformats: axial MIP of the chest, coronal and sagittal. For radiation dose reduction, the following was used: automated exposure control, adjustment of mA and/or kV according to patient size. COMPARISON: CT abdomen/pelvis 09/16/2024 FINDINGS: Image quality: Excellent. Soft tissues: Small focus of superficial gas at the lower margin of the [id number] in the right ischial region with mild surrounding fat stranding could represent a small area of ulceration, but is not completely included on this exam. Fecal-like material at the intergluteal cleft with suspected surrounding ulceration extending to the inferior margin of the sacrum. No acute osseous erosions are seen. No intrapelvic extension is seen. Trace presacral edema. Bowel and peritoneum: No bowel distension. No pathologic free fluid. Postsurgical changes at the sigmoid colon. Left abdominal colostomy. Multiple colonic diverticula are seen. Vessels: No infrarenal aortic aneurysm. Reproductive organs: Hull catheter is inflated within the prostatic urethra. Recommend repositioning. Bladder: Circumferential bladder wall thickening. Bladder contains a few foci of gas. Pelvic lymph nodes: No pelvic adenopathy by size criteria. Bones: No aggressive osseous abnormality. The inferior sacrum and coccyx are absent, likely postsurgical. Other: No significant ventral or inguinal hernia. Small fat-containing periumbilical hernia. IMPRESSION: 1.Hull catheter is seen with balloon inflated in the prostatic urethra. Recommend repositioning. Circumferential bladder wall thickening may be secondary to chronic outlet obstruction or cystitis. 2.Fecal-like material is seen in the intergluteal cleft with suspected adjacent subcutaneous ulceration. No significant fluid component is seen. Material extends to the inferior margin of the sacrum without signs of osteomyelitis. Mild presacral edema but no definite signs of intrapelvic extension. 3.Small focus of gas in the subcutaneous tissues overlying the right ischial tuberosity at the inferior margin of this exam with subcutaneous edema, incompletely evaluated and ulceration is not excluded. 4.Postsurgical changes in the sigmoid colon end colostomy of the left abdomen. Colonic diverticulosis. Reviewed by: Yovani Hammond MD on 01/13/2025 1:15 PM PDT Approved by: Yovani Hammond MD on 01/13/2025 1:15 PM PDT Station ID: [id number]
[2025-01-13] MEDS ORDERED: CLINDAMYCIN 600 MG/50 ML 50 ML IV SCH (14:00)
--- OUTSIDE RECORDS SUMMARY | 2025-01-13 14:26 | EXTERNAL MEDICAL SUMMARY RPT | Continuity of Care Document ---
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 [facility] 2024-10-24 05:46 Encounter for screening for lip oid disorders [facility] 2024-10-25 07:37 Bacterial infection, unspecifie d [facility] 2024-10-25 07:37 Moderate protein-calorie malnut [employer] [facility] 2024-10-25 07:37 Pressure ulcer of sacral region , stage 4 [facility] 2024-10-25 07:37 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24-10-27 12:40 Bacterial infection, [facility]specifie d [facility] 2024-10-27 12:42 Encounter for screening for [facility] oid disorders [facility] 12:16 Irritant contact dermatitis due to other agents [facility]24-11-01 12:16 Pressure ulcer of sacral region , stage [address] [facility] 2024-11-01 12:16 Osteomyelitis of jose tebra, sacral and sacrococcygeal region [facility] 2024-11-04 08:53 Irritant contact dermatitis due to other agents [facility] 2024-11-04 08:53 Pressure ulcer of sacral region , stage [address] [facility] 2024-11-04 08:53 Osteomyelitis of jose tebra, sacral and sacrococcygeal region [facility] 2024-11-09 09:01 Irritant contact dermatitis due to other agents [facility] 2024-11-09 09:01 Pressure ulcer of sacral region , stage [address] [facility] 2024-11-09 09:01 Osteomyelitis of jose tebra, sacral and sacrococcygeal region [facility] 2024-11-09 15:05 Irritant contact dermatitis due to other agents [employer] 2024-11-09 15:05 Pressure ulcer of sacral region , stage [address] [employer] [facility] 2024-11-09 15:05 Osteomyelitis of jose tebra, sacral and sacrococcygeal region [facility] 2024-11-09 15:46 Irritant contact dermatitis due to other agents [employer] 2024-11-09 15:46 Pressure ulcer of sacral region , stage [address] [facility] 2024-11-09 15:46 Osteomyelitis of jose tebra, sacral and sacrococcygeal region [facility] 2024-11-09 15:53 Irritant contact dermatitis due to other agents [employer] 2024-11-09 15:53 Pressure ulcer of sacral region , stage [address] [facility] 2024-11-09 15:53 Osteomyelitis of jose tebra, sacral and sacrococcygeal region [facility] 2024-11-10 08:08 Irritant contact dermatitis due to other agents [employer] [facility] 2024-11-10 08:08 Pressure ulcer of sacral region , stage [address] [facility] 2024-11-10 08:08 Osteomyelitis of jose tebra, sacral and sacrococcygeal region [facility] 2024-11-12 11:23 Irritant contact dermatitis due to other agents [facility]12 11:23 Pressure ulcer of sacral region , stage [facility]24-11-12 11:23 Osteomyelitis of jose tebra, sacral and sacrococcygeal region [facility] 2024-11-16 11:15 Irritant contact dermatitis due to other agents [facility] 2024-11-16 11:15 Pressure ulcer of sacral region , stage [address] [facility] 2024-11-16 11:15 Osteomyelitis of jose tebra, sacral and sacrococcygeal region [facility]24-11-23 14:28 Irritant contact dermatitis due to other agents [facility] 2024-11-23 14:28 Pressure ulcer of sacral region , stage 4 [facility]24-[facility]-23 14:28 Osteomyelitis of jose tebra, sacral and sacrococcygeal region [facility] 2024-11-23 14:47 Irritant contact dermatitis due to other agents [facility] 2024-11-23 14:47 Pressure ulcer of sacral region , stage [address] [facility] 2024-11-23 14:47 Osteomyelitis of jose tebra, sacral and sacrococcygeal region [facility] 2024-11-25 00:05 Pressure ulcer of sacral region , stage [address] [facility] 2024-12-01 15:16 Irritant contact dermatitis due to other agents [facility] 2024-12-01 15:16 Pressure ulcer of sacral region , stage [address] [facility] 2024-12-01 15:16 Osteomyelitis of jose tebra, sacral and sacrococcygeal region [facility] 2024-12-07 14:58 Irritant contact dermatitis due to other agents [facility] 2024-12-07 14:58 Pressure ulcer of sacral region , stage [address] [facility] 2024-12-07 14:58 Osteomyelitis of jose tebra, sacral and sacrococcygeal region [facility] 2024-[facility]-07 16:52 Irritant contact dermatitis due to other agents [facility] 2024-12-07 16:52 Pressure ulcer of sacral region , stage 4 [facility] 2024-12-07 16:52 Osteomyelitis of jose tebra, sacral and sacrococcygeal region [facility] 2024-12-07 16:53 Irritant contact dermatitis due to other agents [facility] 2024-12-07 16:53 Pressure ulcer of sacral region , stage 4 [facility] 2024-12-07 16:53 Osteomyelitis of jose tebra, sacral and sacrococcygeal region [facility] 2024-12-08 08:51 Irritant contact dermatitis due to other agents [facility] 2024-12-08 08:51 Pressure ulcer of sacral region , stage 4 [facility] 2024-12-08 08:51 Osteomyelitis of jose tebra, sacral and sacrococcygeal region [facility] 2024-12-08 15:51 Irritant contact dermatitis due to other agents [facility] 2024-12-08 15:51 Pressure ulcer of sacral region , stage [address] [facility] 2024-12-08 15:51 Osteomyelitis of jose tebra, sacral and sacrococcygeal region [facility] 2024-12-09 13:59 Pressure ulcer of unspecified s ite, stage [address] [facility] 2024-12-09 13:59 Cough, unspecified [facility] 2024-12-09 13:59 [facility]zing [facility] 2024-12-16 12:02 Irritant contact dermatitis due to other agents [facility] 2024-12-16 12:02 Pressure ulcer of sacral region , stage [address] [facility] 2024-12-16 12:02 Osteomyelitis of jose tebra, sacral and sacrococcygeal region [facility] 2024-12-16 13:31 Irritant contact dermatitis due to other agents [facility] 2024-12-16 13:31 Pressure ulcer of sacral region , stage [address] [facility] 2024-12-16 13:31 Osteomyelitis of jose tebra, sacral and sacrococcygeal region [facility] 2024-12-16 15:37 Irritant contact dermatitis due to other agents [facility] 2024-12-16 15:37 Pressure ulcer of sacral region , stage [address] [facility] 2024-12-16 15:37 Osteomyelitis of jose tebra, sacral and sacrococcygeal region [facility] 2024-12-27 14:39 Irritant contact dermatitis due to other agents [facility] 2024-12-27 14:39 Pressure ulcer of sacral region , stage [address] [facility] 2024-12-27 14:39 Osteomyelitis of jose tebra, sacral and sacrococcygeal region [facility] 2024-12-27 14:55 Irritant contact dermatitis due to other agents [facility] 2024-12-27 14:55 Pressure ulcer of sacral region , stage [address] [facility] 2024-12-27 14:55 Osteomyelitis of jose tebra, sacral and sacrococcygeal region [facility] 2024-12-27 15:49 Irritant contact dermatitis due to other agents [facility] 2024-12-27 15:49 Pressure ulcer of sacral region , stage [address] [facility] 2024-12-27 15:49 Osteomyelitis of jose tebra, sacral and sacrococcygeal region [facility] 2024-12-27 15:51 Irritant contact dermatitis due to other agents [facility] 2024-12-27 15:51 Pressure ulcer of sacral region , stage [address] [facility] 2024-12-27 15:51 Osteomyelitis of jose tebra, sacral and sacrococcygeal region [facility] 2025-01-03 11:48 Irritant contact dermatitis due to other agents [employer] 2025-01-03 11:48 Pressure ulcer of sacral region , stage [address] [facility] 2025-01-03 11:48 Osteomyelitis of jose tebra, sacral and sacrococcygeal region [facility] 2025-01-03 12:04 Irritant contact dermatitis due to other agents [facility] 2025-01-03 12:04 Pressure ulcer of sacral region , stage [address] [facility] 2025-01-03 12:04 Osteomyelitis of jose tebra, sacral and sacrococcygeal region [facility] 2025-01-10 08:54 Irritant contact dermatitis due to other agents [facility] 2025-01-10 08:54 Pressure ulcer of sacral region , stage 4 [facility] 2025-01-10 08:54 Osteomyelitis of jose tebra, sacral and sacrococcygeal region [facility] 2025-01-10 13:18 Atherosclerotic hear t disease of [place] coronary artery without angina pectoris [facility] 2025-01-10 15:56 Irritant contact dermatitis due to other agents [facility] 2025-01-10 15:56 Pressure ulcer of sacral region , stage 4 [facility] 2025-01-10 15:56 Osteomyelitis of jose tebra, sacral and sacrococcygeal region [facility] Results/Labs test date facility value unit notes Result panel 1 NUCLEATED RED BLOOD CELLS AUTO 2024-10-23 19:45 [facility] 0.0 /100wbc (missing) NRBC ABSOLUTE COUNT (AUTO) 2024-10-23 19:45 [facility] 0.00 x10 3/ul (missing) BASOPHILS # (AUTO) 2024-10-23 19:45 [facility] 0.1 10 3/ul (missing) MONOCYTES # (AUTO) 2024-10-23 19:[address] [facility] 0.7 10 3/ul (missing) EOSINOPHILS # (AUTO) 2024-10-23 19:[address] [facility] 1.1 10 3/ul (missing) MEAN PLATELET VOLUME 2024-10-23 19:[address] [facility] 10.0 fl (missing) HGB - HEMOGLOBIN 2024-10-23 19:45 [facility] 12.1 g/dl (missing) WHITE BLOOD COUNT 2024-10-23 19:45 [facility] 13.1 x10 3/ul (missing) RED CELL DISTRIBUTION WIDTH 2024-10-23 19:[address] [facility] 19.7 % (missing) MEAN CORPUSCULAR HEMOGLOBIN 2024-10-23 19:45 [facility] 27.3 pg (missing) MEAN CORPUSCULAR HGB CONC 2024-10-23 19:45 [facility] 30.9 g/dl (missing) PLT - PLATELET COUNT 2024-10-23 19:45 [facility] 10 3/ul (missing) HCT - HEMATOCRIT 2024-10-23 19:45 [facility] 39.1 % (missing) LYMPHOCYTES # (AUTO) 2024-10-23 19:45 [facility] 4.3 10 3/ul (missing) RED BLOOD COUNT 2024-10-23 19:[address] [facility] 4.44 10 6/ul (missing) NEUTROPHILS # (AUTO) 2024-10-23 19:45 [facility] 6.8 10 3/ul (missing) MEAN CORPUSCULAR VOLUME 2024-10-23 19:45 [facility] 88.1 fl (missing) DIFFERENTIAL COMMENT 2024-10-23 19:45 [facility] MANUAL=AUTO DIFF (missing) MANUAL DIFFERENTIAL AGREES WITH AUTO DIFFERENTIAL PLATELET ESTIMATE, MANUAL 2024-10-23 19:45 [facility] NORMAL (130-450,000) (missing) (missing) PLATELET MORPHOLOGY 2024-10-23 19:45 [facility] NORMAL APPEARANCE (missing) (missing) RBC MORPHOLOGY (MULTIPLE) 2024-10-23 19:45 [facility] NORMAL APPEARANCE (missing) (missing) WBC MORPHOLOGY (MULTIPLE) 2024-10-23 19:45 [facility] NORMAL APPEARANCE (missing) (missing) Result panel 2 BILIRUBIN,TOTAL 2024-10-24 05:00 [facility] 0.5 mg /dl As of March 2023 testing method has changed, this may include reference ranges. ALBUMIN/GLOBULIN RATIO 2024-10-24 05:00 [facility] 0.8 (missing) (missing) CREATININE 2024-10-24 05:00 [facility] 0.8 mg/dl As of March 2023 testing method has changed, this may include reference ranges. CRP - C-REACTIVE PROTEIN 2024-10-24 05:00 [facility] 1.8 mg/dl Unknown As of March 2023 testing method has changed, this may include reference ranges. CHLORIDE 2024-10-24 05:00 [facility] 101 mmol/l As of March 2023 testing method has changed, this may include reference ranges. ALKALINE PHOSPHATASE 2024-10-24 05:00 [facility] 119 iu/l As of March 2023 testing method has changed, this may include reference ranges. SODIUM 2024-10-24 05:00 [facility] 138 mmol/l Unknown As of March 2023 testing method has changed, this may include reference ranges. BUN - BLOOD UREA NITROGEN 2024-10-24 05:00 [facility] 16 mg/dl As of Mar testing method has changed, this may include reference ranges. ALBUMIN 2024-10-24 05:00 [facility] 2.8 g/dl As of March 2023 testing method has changed, this may include reference ranges. GLOBULIN 2024-10-24 05:00 [facility] 3.7 g/dl (missing) POTASSIUM 2024-10-24 05:00 [facility] 3.8 mmol/l As of March 2023 testing method has changed, this may include reference ranges. CARBON DIOXIDE - CO2 2024-10-24 05:00 [facility] 32 mmol/l As of March 2023 testing method has changed, this may include reference ranges. ANION GAP 2024-10-24 05:00 [facility] 5.0 (missing ) (missing) TOTAL PROTEIN 2024-10-24 05:00 [facility] 6.5 g/dl As of March 2023 testing method has changed, this may include reference ranges. AST ASPARTATE AMINOTRANSFERASE 2024-10-24 05:00 [facility] 82 iu/l As of March 2023 testing method has changed, this may include reference ranges. ALT ALANINE AMINOTRANSFERASE 2024-10-24 05:00 [facility] 87 iu/l As of March 2023 testing method has changed, this may include reference ranges. CALCIUM 2024-10-24 05:00 [facility] 9.0 mg/dl As of March 2023 testing method has changed, this may include reference ranges. GFR - MDRD 2024-10-24 05:00 [facility] 92 (in g) Social History date description facility
--- NOTE | 2025-01-13 14:35 | PHARMACY PROGRESS NOTE ---
Vancomycin Therapy Monitoring Vancomycin Therapy Goals Treatment Indication: purulent cellulitis/sepsis Vancomycin Target Range: Vancomycin AUC Target Range 400-600 mcg*h/ml Plan: Vancomycin Loading Dose (GM, if applicable): 2gx1 New Regimen (Enter new dose and interval): 1g q12h starting 01/14 @ 0400. anticipated AUC 447 Vancomycin Level Recommendation: Vancomycin Level Recommendation (after 4th or 5th dose if scr stable)
--- NOTE | 2025-01-13 14:38 | HISTORY & PHYSICAL EXAMINATION ---
Chief Complaint Chief Complaint Chief Complaint: hypotension History of Present Illness Admitted From Admitted From:: LOUIE History Obtained From Records Reviewed: past hospitalizations at , TACS consult 09/17/24 at [facility] History obtained from: patient and , [place] History of Present Illness HPI Comment/Other: 84-year-old nonambulatory resident of [facility] presents to the emergency department today with complaints of hypotension. EMS was called out earlier in the day with a complaint of low O2 sat and then called back for hypotension. He was therefore transferred to our emergency department. He has a past medical history low back problems and has been unable to ambulate for quite some time. He is not paralyzed but he does have a history of spinal surgery. Also has a history of DVT, heart failure with preserved ejection fraction, coronary artery disease, hyperlipidemia, hypertension and pacemaker placement. He is status post creation of diverting colostomy in June 2024 to assist in healing of his sacral wound. In discussion with his at the bedside I find that he has been bedbound since 2022. His spinal cord injury was in 2000. He is being seen by our outpatient wound care providers every Friday. There has been some talk of consultation at either the [facility] or [facility] for plastic surgery but he has not been seen there. His tells me that over the past month she has seen a decline in his overall health. She states that he is less alert and aware. When I questioned her about what gives him valerie in life she says she is really not sure. She says he does get some valerie from the interactions that she has with him. Today in the emergency department his course is significant for an isolated blood pressure of 98/59. He does not have any tachycardia. He has an elevated white blood cell count of 16.0, sodium of 131 with no history of hyponatremia, lactate of 2.6 with an elevated CRP of 16.6 procalcitonin is negative. 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 Nor does the give me any history of debridement of osteomyelitis surgically. The patient has no complaints of pain today. He is not a good historian, very vague in his answers and it takes him some time to even relate to me that he does not have pain. Meds/Allgy Home Medications Ambulatory Orders Medication Instructions Recorded Confirmed gabapentin 600 mg tablet 600 mg PO TID peripheral 10/27/24 (Neurontin) neuropathy ##30 acetaminophen 500 mg tablet 500 mg PO Q6H 12/02/17 atorvastatin 40 mg tablet 40 mg PO DAILY 12/02/1710/03 multivitamin (Multiple Vitamins 1 tab PO DAILY 8 10/27/24 tablet) apixaban 2.5 mg tablet (Eliquis) 5 mg PO BID 09/04/22 10/27/24 albuterol sulfate 90 mcg/actuation 1 - 2 puff inhalati on Q4HR PRN 01/15/23 10/27/24 aerosol inhaler (Ventolin HFA) Shortness Of Air/Wheezi ng #1 ea ascorbic acid (vitamin C) 500 mg 500 mg PO DAILY 06/2110/27/24 capsule calcium 600 mg (as 1 cap PO DAILY 06/21/2410/03 carbonate)-vitamin D3 5 mcg (200 unit) capsule (Calcium 600 + D(3)) furosemide 40 mg tablet 40 mg PO BID 09/17/24 carvedilol 6.25 mg tablet 6.25 mg PO PRN 12/16/2411/30 camphor-menthol 0.5 %-0.5 % lotion 1 applic topical QI D 12/31/24 12/31/24 (Anti-Itch (menthol-camphor)) diphenhydramine HCl 25 mg capsule 25 mg PO QID PRN itc angel 12/31/24 12/31/24 (Aler-Cap) polyethylene glycol 3350 17 17 g PO DAILY PRN constipa tion if 12/31/24 12/31/24 gram/dose oral powder (Miralax) no BM times 3 days potassium chloride 20 mEq 20 meq PO DAILY supplement 0 12/31/24 12/31/24 tablet,extended release(part/cryst) sennosides 8.6 mg tablet (Laxative 8.6 mg PO DAILY 10/2612/31/24 (sennosides)) Allergies Allergies Allergy/AdvReac Type Severity Reaction Status Date / Time No Known Drug Allergies Allergy Verified 01/13/25:55 [facility] Active Problems All Active Problems (Updated 01/13/25 @ 15:16 by RAMON Rouse) Sepsis (Acute) SIRS (systemic inflammatory response syndrome) (Acute) Transient hypotension (Acute) Infected wound (Acute) Decubitus ulcer of sacral area (Acute) Irritant contact dermatitis due to other agents (Acute) Chronic osteomyelitis of coccyx (Acute) Colostomy complication (Acute) Pressure ulcer of sacral region, stage 4 (Acute) Medical History Medical History (Updated 01/13/25 @ 15:16 by RAMON Rouse) Acute osteomyelitis of pelvic region UTI (urinary tract infection) 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 Morbid obesity due to excess calories Chronic diastolic (congestive) heart failure Chronic low back pain Cardiomegaly Old myocardial infarct Hyperlipemia Hypertension Pacemaker Paraplegia, incomplete Surgical History Surgical History Hx of spinal surgery History of colostomy (~06/29/24) (laparoscopic, @ [place], diverted for sacral wound) Presence urogenital implant Presence of right artificial knee joint Family History Family History (Updated 07/16/24 @ 16:56 by Paras Bronson) Brother Congenital heart disease CAD (coronary artery disease) Mother Family history unknown Father Family history unknown Social History Social History Smoking Status: Never smoker Second hand tobacco smoke exposure: No Do you dip or chew tobacco?: No Do you vape?: No Living arrangement: [facility] ([facility]) Marital Status: Living Condition: Alone and With spouse/s.o. Relationship: Level: Dependent Do you feel safe in your home environment?: Yes Suffered physical, verbal, emotional, or financial abuse?: No History of Abuse: No Substance Use: denies use POLST Patient has POLST: Yes POLST Status: Full Code Review of Systems Status of ROS: See HPI and unobtainable due to mental status Constitutional Denies: Fever Cardiovascular Denies: chest pain or shortness of breath with exertion Respiratory Denies: Shortness of breath, Cough or Sputum production Gastrointestinal Denies: Abdominal pain Genitourinary Reports: other (chronic schaeffer) Musculoskeletal Denies: Extremity pain or Extremity swelling Neurological Reports: Other (bed bound since 2022); Denies: Focal weakness Prior Level of Functionality: bed bound, SNF resident Exam Exam Vital Signs: Vital Signs x48h Temp Pulse Pulse Resp BP BP Pulse Ox 01/13/25 16:16 36.8 C 87 20 114/65 96 01/13/25 15:00 60 18 127/55 L 95 O2 Flow Rate 01/13/25 16:16 2 01/13/25 15:00 2 Constitutional normal general appearance and no apparent distress HENMT normocephalic and hearing grossly normal bilaterally sticky mucous membranes Eyes conjunctivae normal and no scleral icterus Neck/C-Spine visual inspection normal and trachea midline Lymph no lymphadenopathy noted Chest inspection of chest normal Respiratory breath sounds equal bilaterally, normal respiratory effort and no use of accessory muscles Cardiovascular normal heart rate noted Gastrointestinal abdomen normal to inspection, abdomen soft to palpation and nontender to palpation colostomy bag with thin yellow output Back/Pelvis spine normal to inspection Extremities normal to inspection and normal to palpation able to lift each of his legs off the bed. Neurology GCS 14, confusion, disoriented to time Psychiatry disoriented to time Skin severe sacral wounds, at the midline, and on the right buttock. examined w RN at bedside, but not able to measure and assess these wounds. Conclusion/Plan Problem List (1) Sepsis: Plan: This patient meets sepsis criteria given that he has leukocytosis, lactic acidosis, transient hypotension, and is requiring 2L NC of oxygen. He is not on home oxygen at baseline. He has had transient hypotension. one blood pressure reading under 100. likely source of his sepsis is either the ulcer or UTI. His CXR is negative for PNA. I have placed the patient on rocephin, and vancomycin. (he has had postive MRSA cultures in the past and lives in a SNF). I have blood cultures pending. I will repeat CBC in the AM. I will trend lactate. Discussed with Dr Jain in the ED, and agreed to admit the patient for sepsis and elucidate and treat the source of his sepsis. discussion with patient's spouse, [place], as an independent historian. she relates to me that he has been declining over the last month. (2) UTI (urinary tract infection): Plan: Urine culture is pending. UA in the emergency department shows nitrite positive with small amount of occult blood and large amount of leukocyte Estrace 11-25 white blood cells per high-powered field. There are no squamous cells. He has moderate bacteria in his urine. I am starting this patient on ceftriaxone and vancomycin. Looking back at his previous wound cultures he has had MRSA in the wound so probably best to cover for MRSA. I will follow the urine cultures (3) Decubitus ulcer of sacral area: Plan: Discussed with NELLY Motnaño and regulatory affairs strategy specialist. She has been working with this patient for some time, packing the wound with 2.5% acetic acid this has been effective in helping him partially heal. He does have a history of osteomyelitis. He has not had any bony debridement. I examined the wound today and packed 1 saline moistened Kerlix into the sacral wound in its entirety. I will be obtaining Dakin solution in the morning and will packed the wound with quarter strength Dakin's. Additionally the wound on the right ischial area was packed with about a third of a roll of Kerlix. Drainage from the wound is mildly foul-smelling. It is unclear if the source of his sepsis is these wounds or his urinary tract infection. There is not judi purulent drainage from the wound noticed nor is there any abscess noted on CT of the pelvis. I have reviewed surgical consultation note done at [facility]. There is no indication at this time for surgical treatment of the wound above what we can provide here at [facility] and less the patient were to be able to seen by plastics and have flap reconstruction. I have discussed this with the wound care and ostomy nurse. We will try to get records over to the patient's [facility] bilingual case manager just in case something can be done acutely. (4) Neuromuscular dysfunction of bladder: Plan: Chronic indwelling Schaeffer due to neurogenic bladder. Schaeffer orders were placed in the ED secondary to urinary tract infection. (5) Right leg DVT: Plan: This patient is mostly bedbound. I will continue his apixaban 5 mg p.o. twice daily due to his history of DVT. (6) Morbid obesity due to excess calories: Plan: His elevated BMI makes wound care more difficult and more complex. (7) Chronic diastolic (congestive) heart failure: Plan: Last echocardiogram on record is 2016. At that time patient had an ejection fraction of 50 to 55% with severe right ventricular enlargement and mild impairment of his right ventricular systolic function. At this time I do not think he is having a CHF exacerbation. I will continue his home medications of Lasix 20 mg twice daily. (8) Hyperlipemia: Plan: Continue statin. According to records sent from [facility], atorvastatin 40 mg daily. (9) Hypertension: Plan: He has a history of hypertension and is on Coreg 6.25 mg twice daily. Hold for systolic less than 110 or heart rate less than 60. It seems that he often comes to the [facility] center with hypotension. I will hold this medication continue to observe his blood pressures while he is here and consider discontinuation. Qualifiers: Hypertension type: unspecified Qualified Code(s): I10 - Essential (primary) hypertension (10) Pacemaker: Plan: Pacemaker in place. Patient is full code. I am not sure if this is an AICD. Just need to be aware of this in the case that we would order an MRI. Plan I have spent 90 minutes in the care of this patient today. This includes time [id number], review and ordering of diagnostic imaging and laboratory studies and consultation with other providers. Monitoring the patient's signs symptoms, evaluation of medication effectiveness and patient's response to treatment. Lab Results Lab results reviewed: Yes 01/13/25 10:17 01/13/25 10:17 Diagnostic Imaging Results Diagnostic Imaging Results: positive Final report reviewed Diagnostic Imaging Results Comments: CT of the pelvis does not show osteomyelitis that is active. Nor does that show abscess Core Measures Anticipated LOS I expect patient to be DC'd or transferred within 96 hours.: Yes Issues Hospital Issues and Management Plan: Sepsis syndrome with urinary tract infection and sacral decubitus ulceration. I will treat the patient's sepsis. I will monitor the patient's lactate. I will follow urine cultures and blood cultures. DVT/VTE - Prophylaxis VTE/DVT Prophylaxis med ordered at admit?: No Not Ordered - Medical Reason: Not indicated (Eliquis)
[2025-01-13] MEDS ORDERED: ONDANSETRON 4 MG/2 ML VIAL IVP PRN (14:50)
[2025-01-13] MEDS ORDERED: SODIUM CHLORIDE FLUSH 0.9% 10 ML SYRINGE IVP PRN (14:50)
[2025-01-13] MEDS: VANCOMYCIN INJ 2 GM in SODIUM CHLORIDE 0.9% 500 ML IV STA (15:35)
[2025-01-13] MEDS: SODIUM CHLORIDE FLUSH 0.9% 10 ML SYRINGE IVP SCH (17:52)
[2025-01-13] MEDS: CALCIUM CARB (OYSTER SHELL) 500 MG TABLET PO SCH (17:52)
[2025-01-13] MEDS: COD LIVER OIL/ZINC OXIDE 113 GM TUBE TOP PRN (17:52)
[2025-01-13] MEDS: carvediloL 3.125 MG TABLET PO SCH (20:57)
[2025-01-13] MEDS: APIXABAN 5 MG TABLET PO SCH (20:57)
[2025-01-14] MEDS ORDERED: VANCOMYCIN INJ 1 GM in SODIUM CHLORIDE 0.9% 250 ML IV SCH (04:00)
[2025-01-14 05:48] LABS: BASOPHILS # (AUTO) 0.1 10^3/uL (0.0-0.1); BASOPHILS % (AUTO) 0.5 %; EOSINOPHILS # (AUTO) 0.7 10^3/uL (0.0-0.7); EOSINOPHILS % (AUTO) 5.2 %; HCT - HEMATOCRIT 28.9 % (42.0-52.0); HGB - HEMOGLOBIN 8.9 g/dL (14.0-18.0); LYMPHOCYTES # (AUTO) 3.3 10^3/uL (1.5-3.5); LYMPHOCYTES % (AUTO) 23.8 %; MEAN CORPUSCULAR HEMOGLOBIN 25.4 pg (27.0-31.0); MEAN CORPUSCULAR HGB CONC 30.8 g/dL (32.0-36.0); MEAN CORPUSCULAR VOLUME 82.3 fL (80.0-94.0); MEAN PLATELET VOLUME 9.6 fL (7.4-11.4); MONOCYTES % (AUTO) 7.1 %; NEUTROPHILS # (AUTO) 8.6 10^3/uL (1.5-6.6); NEUTROPHILS % (AUTO) 62.4 %; PLT - PLATELET COUNT 388 10^3/uL (130-450); RED BLOOD COUNT 3.51 10^6/uL (4.70-6.10); RED CELL DISTRIBUTION WIDTH 17.2 % (12.0-15.0); WHITE BLOOD COUNT 13.7 x10^3/uL (4.8-10.8)
[2025-01-14 06:05] LABS: CALCIUM 8.1 mg/dL (8.5-10.3); CREATININE 0.7 mg/dL (0.6-1.3); POTASSIUM 3.8 mmol/L (3.5-4.5)
[2025-01-14] MEDS: VANCOMYCIN INJ 1 GM in SODIUM CHLORIDE 0.9% 250 ML IV SCH (06:29)
[2025-01-14] MEDS ORDERED: SODIUM CHLORIDE 0.9% 250 ML IV ONE (06:32)
[2025-01-14] MEDS: CHOLECALCIFEROL 25 MCG TABLET PO SCH (08:34)
[2025-01-14] MEDS: FUROSEMIDE 20 MG TABLET PO SCH (08:34)
[2025-01-14] MEDS: ASCORBIC ACID 500 MG TABLET PO SCH (08:34)
[2025-01-14] MEDS: ATORVASTATIN 40 MG TABLET PO SCH (08:34)
--- NOTE | 2025-01-14 09:54 | PHARMACY PROGRESS NOTE ---
Best Possible Medication History Admit Date and Time: 01/13/25 [id number] Home Medications Medication Instructions Recorded Confirmed Type gabapentin 600 mg tablet 600 mg PO TID peripheral 01/14/25 Rx (Neurontin) neuropathy ##30 acetaminophen 500 mg tablet 500 mg PO Q6H PRN pain 11/1601/14/25 History atorvastatin 40 mg tablet 40 mg PO .QHS 12/02/1701/14 History apixaban 2.5 mg tablet (Eliquis) 5 mg PO BID 09/04/22 01/14/25 History ascorbic acid (vitamin C) 500 mg 1,000 mg PO DAILY 01/14/25 History capsule calcium 600 mg (as 1 cap PO DAILY 06/21/2412/30 History carbonate)-vitamin D3 5 mcg (200 unit) capsule (Calcium 600 + D(3)) furosemide 40 mg tablet 20 mg PO BID 09/17/24 History carvedilol 6.25 mg tablet 6.25 mg PO BID 12/16/2412/30 History camphor-menthol 0.5 %-0.5 % lotion 1 applic topical Q6 H PRN itching 12/31/24 01/14/25 History (Anti-Itch (menthol-camphor)) diphenhydramine HCl 25 mg capsule 25 mg PO Q6H PRN itc angel 12/31/24 01/14/25 History (Aler-Cap) polyethylene glycol 3350 17 17 g PO DAILY PRN constipa tion if 12/31/24 01/14/25 History gram/dose oral powder (Miralax) no BM times 3 days potassium chloride 20 mEq 20 meq PO DAILY supplement 0 12/31/24 01/14/25 History tablet,extended release(part/cryst) sennosides 8.6 mg tablet (Laxative 17.2 mg PO DAILY KS N DAY 4 WO BM 12/31/24 01/14/25 History (sennosides)) acetic acid 0.25 % irrigation 1 irrig irrigation QPM 0 01/14/25 01/14/25 History solution albuterol sulfate 90 mcg/actuation 1 - 2 puff inhalati on Q4HR PRN 01/14/25 01/14/25 History aerosol inhaler (Ventolin HFA) Shortness Of Air/Wheezi ng multivitamin with iron 1 tab PO DAILY 01/14/2512/30 History Processed by: Pharmacy Medications reviewed in ED?: No Medication History completed: Yes Patient Interview: Pt unable to participate Secondary Source(s): Caregiver and Insurance records BPM Statement: Per [facility] interview with patient (attempt) and [facility] Med Order Summary. [employer] Rx records also reviewed. As the person ultimately responsible for medication therapy, providers are able to order a medication from an existing home medication list in [facility] via the "Reconcile Routine" prior to Confirmation of that medication by forestry support specialist. Such practice is discouraged except when the physician, in their clinical judgment, deems that a medical need exists for a medication without regard to previous use.
[2025-01-14] MEDS: MULTIVITAMIN W/MINERALS TABLET PO SCH (15:24)
[2025-01-14] MEDS: oxyCODONE 5 MG TABLET PO PRN (16:50)
--- NOTE | 2025-01-14 17:52 | PROVIDER PROGRESS NOTE ---
Subjective Prog Note Date Prog Note Date: 01/14/25 Subjective Subjective: not more oriented today, but is awake, and eating well. He has had minimal stoma output, problems with leaking from his schaeffer catheter. Current Medications Current Medications Current Medications: Current Medications Generic Name Dose Route Start Last Admin Trade Name Freq PRN Reason Stop Dose Admin Acetaminophen 650 mg 01/13/25 14:50 Acetaminophen 325 Mg Tablet PO Q4HR PRN Pain 1 to 4, or Fever Apixaban 5 mg 01/13/25 21:00 01/14/25 08:34 Apixaban 5 Mg Tablet PO 5 mg BID BILLIE Administration Ascorbic Acid 500 mg 01/14/25 09:00 01/14/25 08:34 Ascorbic Acid 500 Mg Tablet PO 500 mg DAILY BILLIE Administration Atorvastatin Calcium 40 mg 01/14/25 09:00 01/14/25 08:34 Atorvastatin 40 Mg Tablet PO 40 mg DAILY BILLIE Administration Calcium Carbonate/Glycine 500 mg 01/13/25 17:00 01/14/25 16:51 Calcium Carb (Oyster Shell) 500 Mg Tablet PO 500 mg QDDINNER BILLIE Administration Carvedilol 6.25 mg 01/13/25 21:00 01/14/25 08:34 Carvedilol 3.125 Mg Tablet PO 6.25 mg BID BILLIE Administration Cholecalciferol 25 mcg 01/14/25 09:00 01/14/25 08:34 Cholecalciferol 25 Mcg Tablet PO 25 mcg DAILY BILLIE Administration Furosemide 20 mg 01/14/25 09:00 01/14/25 08:34 Furosemide 20 Mg Tablet PO 20 mg BID BILLIE Administration Vancomycin HCl 1 gm/ Sodium 250 mls @ 166.667 mls/hr 01/14/25 06:00 01/14/25 17:19 Chloride IV 166.67 mls/hr Q12H BILLIE Administration Multivitamins/Minerals 1 tab 01/14/25 10:00 01/14/25 15:24 Multivitamin W/Minerals Tablet PO 1 tab DAILYWM BILLIE Administration Ondansetron HCl 4 mg 01/13/25 14:50 Ondansetron 4 Mg/2 Ml Vial IVP Q6HR PRN Nausea / Vomiting Oxycodone HCl 5 mg 01/13/25 14:50 01/14/25 16:50 Oxycodone 5 Mg Tablet PO 5 mg Q4HR PRN Administration Pain 5 to 7 Sodium Chloride 10 ml 01/13/25 14:50 Sodium Chloride Flush 0.9% 10 Ml Syringe IVP PRN PRN NEEDED PER PROVIDER ORDERS Sodium Chloride 10 ml 01/13/25 17:00 01/14/25 16:51 Sodium Chloride Flush 0.9% 10 Ml Syringe IVP 10 ml 0100,0900,1700 BILLIE Administration Sodium Hypochlorite 200 ml 01/15/25 11:00 Sodium Hypochlorite 473 Ml Bottle TOP BID BILLIE Zinc Oxide 113 gm 01/13/25 17:36 01/13/25 17:52 Cod Liver Oil/Zinc Oxide 113 Gm Tube TOP 1 applic PRN PRN Administration Skin Care Zinc Sulfate 220 mg 01/15/25 09:00 Zinc Sulfate 220 Mg Capsule PO 01/25/25 08:59 DAILY BILLIE Objective Vital Signs/Intake & Output Vital Signs: Vital Signs x48h Temp Pulse Resp BP Pulse Ox O2 Flow Rate 01/14/25 15:40 36.6 C 75 20 100/60 96 2 Intake & Output: Intake & Output 01/11/25 01/12/25 01/13/25 01/14/25 23:59 23:59 23:59 23:59 Intake Total 2620 / 2620 1616 / 1616 Output Total 650 / 650 500 / 500 Balance 1969 / 1969 1116 / 1116 Weight (kg) 111 kg Objective General Appearance: positive No acute distress and Alert Eyes Bilateral: positive Normal inspection and Conjunctivae nml ENT: positive ENT inspection nml Neck: positive Nml inspection Respiratory: positive Chest non-tender, No respiratory distress and Breath sounds nml Cardiovascular: positive Regular rate & rhythm Abdomen: positive Non-tender and Other (liquid stool in stoma bag) Back: positive Nml inspection Skin: positive Decubitus (right ischial and sacral decub ulcers. see below) Extremities: positive Non-tender and No pedal edema Neurologic/Psychiatric: positive Other (oriented to self. ) Comments/Other: right ischial ulceration with fibrinous slough, debrided with iris scissors and forceps to remove tissue, did not debride far enough to cause bleeding. Packed with saline moistened gauze, sacral wound also repacked with saline moistened gauze, abds placed over wounds. penis with hypospadias, urine leaking around cath. attempted to place 22Fr cath, but would not pass, replaced with smaller guage cath, may have to tolerate urine leaking around cath. Lab Results 01/14/25 05:02 01/14/25 05:02 Other Labs: Lab Results x24hrs 01/14/25 01/13/25 Range/Units 05:02 21:15 WBC 13.7 H (4.8-10.8) x10^3/uL RBC 3.51 L (4.70-6.10) 10^6/uL Hgb 8.9 L (14.0-18.0) g/dL Hct 28.9 L (42.0-52.0) % MCV 82.3 (80.0-94.0) fL MCH 25.4 L (27.0-31.0) pg MCHC 30.8 L (32.0-36.0) g/dL RDW 17.2 H (12.0-15.0) % Plt Count 388 (130-450) 10^3/uL MPV 9.6 (7.4-11.4) fL Neut # (Auto) 8.6 H (1.5-6.6) 10^3/uL Lymph # (Auto) 3.3 (1.5-3.5) 10^3/uL [place] # (Auto) 1.0 (0.0-1.0) 10^3/uL Eos # (Auto) 0.7 (0.0-0.7) 10^3/uL Baso # (Auto) 0.1 (0.0-0.1) 10^3/uL Absolute Nucleated RBC 0.00 x10^3/uL Nucleated RBC % 0.0 /100WBC Sodium 133 L (135-145) mmol/L Potassium 3.8 (3.5-4.5) mmol/L Chloride 102 (101-111) mmol/L Carbon Dioxide 26 (21-32) mmol/L Anion Gap 5.0 L (6-13) BUN 25 H (6-20) mg/dL Creatinine 0.7 (0.6-1.3) mg/dL Estimated GFR (MDRD) 108 (>89) Glucose 116 H (74-104) mg/dL Lactic Acid 1.7 (0.5-2.2) mmol/L Calcium 8.1 L (8.5-10.3) mg/dL Assessment/Plan Problem List (1) Sepsis: Impression: Markers for sepsis are improving. WBC decreasing from 16 to 13.7. hypotension is resolving. his lactic acidosis improved and normalized shortly after admission. He is still on 2L NC. his O2 sat are in the mid 90's. Will attempt to wean. Blood cultures NGTD I have ordered repeat CBC for the AM. (2) UTI (urinary tract infection): Impression: Urine culture showing >100k CFU GNR. sensitivities are pending. at this time, rocephin (day2/7) and vancomycin (day 2/7) are appropriate. As his sepsis syndrome improves, would consider de escalation of vanc tomorrow. (3) Decubitus ulcer of sacral area: Impression: I have examined these wounds and done wound care this evening. debrided fibrinous slough from ischial wound this evening. there is no purulent drainage from the wounds, but there is an unpleasant odor. Wound care photos in chart need to be updated, will ask direct support staff for this. I sent over the most recent wound care note to the [facility] today. I faxed this to [phone]. Spoke with social work here at and interfaced with Rebecca who is the social sciences research scientist for the spinal cord injury unit at the [facility]. We had a discussion about appropriate postop care for this patient. We have considered LTAC for him but he cannot be moved to an LTAC as he is not acute enough. He does need complicated wound care. Apparently there is a plastic surgeon who will consider his case at the [facility]. That surgeon does 1-2 flaps per month and there are 3 vets that are currently on the list awaiting flaps. This means that he could in the next several months get a muscle flap rotation surgery for his sacral ulceration. If that were the case he would stay at the [facility] through the critical period of wound healing. (4) Protein calorie malnutrition: Impression: 19kg weight loss since Aug 2024. (17%), 4 kg in the last month. This complicates wound healing. nutrition is consulted and are adjusting supplements. 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 Will continue with present schaeffer. (6) Right leg DVT: Impression: continue eliquis. (7) Morbid obesity due to excess calories: Impression: complicates care. (8) Chronic diastolic (congestive) heart failure: Impression: Last echocardiogram on record is 2016. At that time patient had an ejection fraction of 50 to 55% with severe right ventricular enlargement and mild impairment of his right ventricular systolic function. At this time I do not think he is having a CHF exacerbation. I will continue his home medications of Lasix 20 mg twice daily. (9) Hyperlipemia: Impression: Continue statin. According to records sent from [facility], atorvastatin 40 mg daily. (10) Hypertension: Impression: He has a history of hypertension and is on Coreg 6.25 mg twice daily. Hold for systolic less than 110 or heart rate less than 60. It seems that he often comes to the [facility] with hypotension. I will hold this medication continue to observe his blood pressures while he is here and consider discontinuation. Selected Entries 01/13/25 14:00 01/13/25 15:00 01/13/25 16:16 Blood Pressure 114/56 L 127/55 L Blood Pressure [Right Brachial artery] 114/65 01/13/25 23:53 01/14/25 08:02 01/14/25 15:40 Blood Pressure Blood Pressure [Right Brachial artery] 91/48 L 108/62 100/60 Qualifiers: Hypertension type: unspecified Qualified Code(s): I10 - Essential (primary) hypertension (11) Pacemaker: Impression: Pacemaker in place. Patient is full code. I am not sure if this is an AICD. Just need to be aware of this in the case that we would order an MRI. I have spent 51 minutes in the care of this patient today. This includes time [id number], review and ordering of diagnostic imaging and laboratory studies and consultation with other providers. Monitoring the patient's signs symptoms, evaluation of medication effectiveness and patient's response to treatment.
[2025-01-15 05:33] LABS: BASOPHILS # (AUTO) 0.1 10^3/uL (0.0-0.1); BASOPHILS % (AUTO) 0.6 %; EOSINOPHILS # (AUTO) 0.9 10^3/uL (0.0-0.7); EOSINOPHILS % (AUTO) 6.8 %; HCT - HEMATOCRIT 31.6 % (42.0-52.0); HGB - HEMOGLOBIN 9.2 g/dL (14.0-18.0); LYMPHOCYTES % (AUTO) 31.6 %; MEAN CORPUSCULAR HEMOGLOBIN 24.7 pg (27.0-31.0); MEAN CORPUSCULAR HGB CONC 29.1 g/dL (32.0-36.0); MEAN CORPUSCULAR VOLUME 84.9 fL (80.0-94.0); MEAN PLATELET VOLUME 9.7 fL (7.4-11.4); MONOCYTES % (AUTO) 7.7 %; NEUTROPHILS # (AUTO) 6.6 10^3/uL (1.5-6.6); NEUTROPHILS % (AUTO) 51.7 %; NRBC ABSOLUTE COUNT (AUTO) 0.02 x10^3/uL; NUCLEATED RED BLOOD CELLS AUTO 0.2 /100WBC; PLT - PLATELET COUNT 387 10^3/uL (130-450); RED BLOOD COUNT 3.72 10^6/uL (4.70-6.10); RED CELL DISTRIBUTION WIDTH 17.2 % (12.0-15.0); WHITE BLOOD COUNT 12.7 x10^3/uL (4.8-10.8)
[2025-01-15 05:54] LABS: CALCIUM 8.1 mg/dL (8.5-10.3); CREATININE 0.6 mg/dL (0.6-1.3); POTASSIUM 3.9 mmol/L (3.5-4.5)
[2025-01-15] MEDS: ZINC SULFATE 220 MG CAPSULE PO SCH (09:06)
[2025-01-15] MEDS: CEFEPIME 2 GM VIAL IVP SCH (10:17)
[2025-01-15] MEDS: SODIUM HYPOCHLORITE TOP SCH (11:23)
--- NOTE | 2025-01-15 14:28 | PROVIDER PROGRESS NOTE ---
Subjective Prog Note Date Prog Note Date: 01/15/25 Subjective Pt reports feeling: No change Current Medications Current Medications Current Medications: Current Medications Generic Name Dose Route Start Last Admin Trade Name Helio PRN Reason Stop Dose Admin Acetaminophen 650 mg 01/13/25 14:50 Acetaminophen 325 Mg Tablet PO Q4HR PRN Pain 1 to 4, or Fever Apixaban 5 mg 01/13/25 21:00 01/15/25 09:06 Apixaban 5 Mg Tablet PO 5 mg BID BILLIE Administration Ascorbic Acid 500 mg 01/14/25 09:00 01/15/25 09:06 Ascorbic Acid 500 Mg Tablet PO 500 mg DAILY BILLIE Administration Atorvastatin Calcium 40 mg 01/14/25 09:00 01/15/25 09:06 Atorvastatin 40 Mg Tablet PO 40 mg DAILY BILLIE Administration Calcium Carbonate/Glycine 500 mg 01/13/25 17:00 01/14/25 16:51 Calcium Carb (Oyster Shell) 500 Mg Tablet PO 500 mg QDDINNER BILLIE Administration Carvedilol 6.25 mg 01/13/25 21:00 01/15/25 09:05 Carvedilol 3.125 Mg Tablet PO 6.25 mg BID BILLIE Administration Cefepime HCl 2 gm 01/15/25 10:00 01/15/25 10:17 Cefepime 2 Gm Vial IVP 2 gm Q12H BILLIE Administration Cholecalciferol 25 mcg 01/14/25 09:00 01/15/25 09:06 Cholecalciferol 25 Mcg Tablet PO 25 mcg DAILY BILLIE Administration Furosemide 20 mg 01/14/25 09:00 01/15/25 09:06 Furosemide 20 Mg Tablet PO 20 mg BID BILLIE Administration Vancomycin HCl 1 gm/ Sodium 250 mls @ 166.667 mls/hr 01/14/25 06:00 01/15/25 07:41 Chloride IV Infused Q12H BILLIE Infusion Multivitamins/Minerals 1 tab 01/14/25 10:00 01/15/25 09:06 Multivitamin W/Minerals Tablet PO 1 tab DAILYWM BILLIE Administration Ondansetron HCl 4 mg 01/13/25 14:50 Ondansetron 4 Mg/2 Ml Vial IVP Q6HR PRN Nausea / Vomiting Oxycodone HCl 5 mg 01/13/25 14:50 01/14/25 16:50 Oxycodone 5 Mg Tablet PO 5 mg Q4HR PRN Administration Pain 5 to 7 Sodium Chloride 10 ml 01/13/25 14:50 Sodium Chloride Flush 0.9% 10 Ml Syringe IVP PRN PRN NEEDED PER PROVIDER ORDERS Sodium Chloride 10 ml 01/13/25 17:00 01/15/25 09:06 Sodium Chloride Flush 0.9% 10 Ml Syringe IVP 10 ml 0100,0900,1700 BILLIE Administration Sodium Hypochlorite 200 ml 01/15/25 11:00 01/15/25 11:23 Sodium Hypochlorite 473 Ml Bottle TOP Not Given BID BILLIE Zinc Oxide 113 gm 01/13/25 17:36 01/13/25 17:52 Cod Liver Oil/Zinc Oxide 113 Gm Tube TOP 1 applic PRN PRN Administration Skin Care Zinc Sulfate 220 mg 01/15/25 09:00 01/15/25 09:06 Zinc Sulfate 220 Mg Capsule PO 01/25/25 08:59 220 mg DAILY BILLIE Administration Objective Vital Signs/Intake & Output Reviewed Vital Signs: Yes Vital Signs: Vital Signs x48h Temp Pulse Resp BP Pulse Ox O2 Flow Rate 01/15/25 08:00 36.5 C 66 24 116/62 94 2 01/15/25 07:54 2 Intake & Output: Intake & Output 01/12/25 01/13/25 01/14/25 01/15/25 23:59 23:59 23:59 23:59 Intake Total 2620 / 2620 2356 / 2356 970 / 970 Output Total 650 / 650 975 / 975 1150 / 1150 Balance 1969 / 1969 1381 / 1381 -180 / -180 Weight (kg) 111 kg Objective General Appearance: positive No acute distress and Alert Eyes Bilateral: positive Normal inspection and Conjunctivae nml ENT: positive ENT inspection nml Neck: positive Nml inspection Respiratory: positive Chest non-tender, No respiratory distress and Breath sounds nml Cardiovascular: positive Regular rate & rhythm Abdomen: positive Non-tender and Other (liquid stool in stoma bag) Back: positive Nml inspection Skin: positive Decubitus (right ischial and sacral decub ulcers. see below) Extremities: positive Non-tender and No pedal edema Neurologic/Psychiatric: positive Other (oriented to self. ) Comments/Other: Lab Results 01/15/25 05:26 01/15/25 05:26 Other Labs: Lab Results x24hrs 01/15/25 Range/Units 05:26 WBC 12.7 H (4.8-10.8) x10^3/uL RBC 3.72 L (4.70-6.10) 10^6/uL Hgb 9.2 L (14.0-18.0) g/dL Hct 31.6 L (42.0-52.0) % MCV 84.9 (80.0-94.0) fL MCH 24.7 L (27.0-31.0) pg MCHC 29.1 L (32.0-36.0) g/dL RDW 17.2 H (12.0-15.0) % Plt Count 387 (130-450) 10^3/uL MPV 9.7 (7.4-11.4) fL Neut # (Auto) 6.6 (1.5-6.6) 10^3/uL Lymph # (Auto) 4.0 H (1.5-3.5) 10^3/uL [place] # (Auto) 1.0 (0.0-1.0) 10^3/uL Eos # (Auto) 0.9 H (0.0-0.7) 10^3/uL Baso # (Auto) 0.1 (0.0-0.1) 10^3/uL Absolute Nucleated RBC 0.02 x10^3/uL Nucleated RBC % 0.2 /100WBC Sodium 135 (135-145) mmol/L Potassium 3.9 (3.5-4.5) mmol/L Chloride 104 (101-111) mmol/L Carbon Dioxide 26 (21-32) mmol/L Anion Gap 5.0 L (6-13) BUN 26 H (6-20) mg/dL Creatinine 0.6 (0.6-1.3) mg/dL Estimated GFR (MDRD) 129 (>89) Glucose 117 H (74-104) mg/dL Calcium 8.1 L (8.5-10.3) mg/dL Assessment/Plan Problem List (1) Sepsis: Impression: Markers for sepsis are improving. WBC decreasing from 16 to 13.7. hypotension is resolving. his lactic acidosis improved and normalized shortly after admission. He is still on 2L NC. his O2 sat are in the mid 90's. Will attempt to wean. Blood cultures NGTD 01/15/2025: WBC down to 12.7. Wound cultures with Pseudomonas and group A strep. Urine culture with Proteus. I have changed his antibiotic regimen to cefepime. Will discontinue vancomycin. Continue daily CBC (2) UTI (urinary tract infection): Impression: Urine culture with Proteus. This is susceptible to the Rocephin that he has been on. Today he is day 3 of antibiotics for UTI (3) Decubitus ulcer of sacral area: Impression: Will need plastic surgery to help with wound healing. His wound has tested positive for strep and Pseudomonas. I have changed his antibiotic to cefepime to cover Pseudomonas. Placement will be difficult because of his high need for wound care. Continue dressing changes with 1/4 Dakin's solution wet-to-dry (4) Protein calorie malnutrition: Impression: 19kg weight loss since Aug 2024. (17%), 4 kg in the last month. This complicates wound healing. nutrition is consulted and are adjusting supplements. 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 Will continue with present schaeffer. (6) Right leg DVT: Impression: continue eliquis. (7) Morbid obesity due to excess calories: Impression: complicates care. (8) Chronic diastolic (congestive) heart failure: Impression: Last echocardiogram on record is 2016. At that time patient had an ejection fraction of 50 to 55% with severe right ventricular enlargement and mild impairment of his right ventricular systolic function. Continue home dose Lasix (9) Hyperlipemia: Impression: Continue statin. (10) Hypertension: Impression: History of hypertension on Coreg 6.25 mg twice daily. BP 116/62 today. Continue management Qualifiers: Hypertension type: unspecified Qualified Code(s): I10 - Essential (primary) hypertension (11) Pacemaker: Impression: History of pacemaker
[2025-01-16 05:41] LABS: BASOPHILS # (AUTO) 0.1 10^3/uL (0.0-0.1); BASOPHILS % (AUTO) 0.5 %; EOSINOPHILS # (AUTO) 0.9 10^3/uL (0.0-0.7); HCT - HEMATOCRIT 31.5 % (42.0-52.0); HGB - HEMOGLOBIN 9.8 g/dL (14.0-18.0); LYMPHOCYTES % (AUTO) 31.8 %; MEAN CORPUSCULAR HEMOGLOBIN 25.6 pg (27.0-31.0); MEAN CORPUSCULAR HGB CONC 31.1 g/dL (32.0-36.0); MEAN CORPUSCULAR VOLUME 82.2 fL (80.0-94.0); MEAN PLATELET VOLUME 9.5 fL (7.4-11.4); MONOCYTES # (AUTO) 0.8 10^3/uL (0.0-1.0); MONOCYTES % (AUTO) 6.7 %; NEUTROPHILS # (AUTO) 6.6 10^3/uL (1.5-6.6); NEUTROPHILS % (AUTO) 51.9 %; NRBC ABSOLUTE COUNT (AUTO) 0.03 x10^3/uL; NUCLEATED RED BLOOD CELLS AUTO 0.2 /100WBC; PLT - PLATELET COUNT 439 10^3/uL (130-450); RED BLOOD COUNT 3.83 10^6/uL (4.70-6.10); RED CELL DISTRIBUTION WIDTH 17.2 % (12.0-15.0); WHITE BLOOD COUNT 12.6 x10^3/uL (4.8-10.8)
[2025-01-16 05:56] LABS: CALCIUM 8.2 mg/dL (8.5-10.3); CREATININE 0.7 mg/dL (0.6-1.3); POTASSIUM 3.8 mmol/L (3.5-4.5)
[2025-01-16] MEDS: ACETAMINOPHEN 325 MG TABLET PO PRN (09:20)
[2025-01-16] MEDS ORDERED: POLYETHYLENE GLYCOL PO PRN (10:51)
[2025-01-16] MEDS ORDERED: SENNA 8.6 MG TABLET PO PRN (10:51)
--- NOTE | 2025-01-16 10:54 | PROVIDER PROGRESS NOTE ---
Subjective Prog Note Date Prog Note Date: 01/16/25 Subjective Pt reports feeling: Improved Current Medications Current Medications Current Medications: Current Medications Generic Name Dose Route Start Last Admin Trade Name Helio PRN Reason Stop Dose Admin Acetaminophen 650 mg 01/13/25 14:50 01/16/25 09:20 Acetaminophen 325 Mg Tablet PO 650 mg Q4HR PRN Administration Pain 1 to 4, or Fever Apixaban 5 mg 01/13/25 21:00 01/16/25 08:24 Apixaban 5 Mg Tablet PO 5 mg BID BILLIE Administration Ascorbic Acid 500 mg 01/14/25 09:00 01/16/25 08:24 Ascorbic Acid 500 Mg Tablet PO 500 mg DAILY BILLIE Administration Atorvastatin Calcium 40 mg 01/14/25 09:00 01/16/25 08:24 Atorvastatin 40 Mg Tablet PO 40 mg DAILY BILLIE Administration Calcium Carbonate/Glycine 500 mg 01/13/25 17:00 01/15/25 18:01 Calcium Carb (Oyster Shell) 500 Mg Tablet PO 500 mg QDDINNER BILLIE Administration Carvedilol 6.25 mg 01/13/25 21:00 01/16/25 08:24 Carvedilol 3.125 Mg Tablet PO 6.25 mg BID BILLIE Administration Cefepime HCl 2 gm 01/15/25 10:00 01/16/25 09:21 Cefepime 2 Gm Vial IVP 2 gm Q12H BILLIE Administration Cholecalciferol 25 mcg 01/14/25 09:00 01/16/25 08:24 Cholecalciferol 25 Mcg Tablet PO 25 mcg DAILY BILLIE Administration Furosemide 20 mg 01/14/25 09:00 01/16/25 08:24 Furosemide 20 Mg Tablet PO 20 mg BID BILLIE Administration Multivitamins/Minerals 1 tab 01/14/25 10:00 01/16/25 08:24 Multivitamin W/Minerals Tablet PO 1 tab DAILYWM BILLIE Administration Non-Formulary Medication 1 tab 01/17/25 09:00 Multivitamin With Iron PO DAILY [facility] Non-Formulary Medication 17 gm 01/16/25 10:51 Polyethylene Glycol 3350 [Miralax] PO DAILY PRN constipation if no BM times 3 days Ondansetron HCl 4 mg 01/13/25 14:50 Ondansetron 4 Mg/2 Ml Vial IVP Q6HR PRN Nausea / Vomiting Oxycodone HCl 5 mg 01/13/25 14:50 01/16/25 03:00 Oxycodone 5 Mg Tablet PO 5 mg Q4HR PRN Administration Pain 5 to 7 Senna 17.2 mg 01/16/25 10:51 Senna 8.6 Mg Tablet PO DAILY PRN DAY 4 WO BM Sodium Chloride 10 ml 01/13/25 14:50 Sodium Chloride Flush 0.9% 10 Ml Syringe IVP PRN PRN NEEDED PER PROVIDER ORDERS Sodium Chloride 10 ml 01/13/25 17:00 01/16/25 08:24 Sodium Chloride Flush 0.9% 10 Ml Syringe IVP 10 ml 0100,0900,1700 BILLIE Administration Sodium Hypochlorite 200 ml 01/15/25 11:00 01/16/25 08:25 Sodium Hypochlorite 473 Ml Bottle TOP 200 ml BID BILLIE Administration Zinc Oxide 113 gm 01/13/25 17:36 01/13/25 17:52 Cod Liver Oil/Zinc Oxide 113 Gm Tube TOP 1 applic PRN PRN Administration Skin Care Zinc Sulfate 220 mg 01/15/25 09:00 01/16/25 08:24 Zinc Sulfate 220 Mg Capsule PO 01/25/25 08:59 220 mg DAILY BILLIE Administration Objective Vital Signs/Intake & Output Reviewed Vital Signs: Yes Vital Signs: Vital Signs x48h Temp Pulse Resp BP Pulse Ox 01/16/25 07:50 36.6 C 75 22 121/64 94 Intake & Output: Intake & Output 01/13/25 01/14/25 01/15/25 01/16/25 23:59 23:59 23:59 23:59 Intake Total 2620 / 2620 2356 / 2356 1340 / 1340 300 / 300 Output Total 650 / 650 975 / 975 2150 / 2150 550 / 550 Balance 1969 / 1969 1381 / 1381 -810 / -810 -250 / -250 Weight (kg) 111 kg Objective General Appearance: positive No acute distress and Alert Eyes Bilateral: positive Normal inspection and Conjunctivae nml ENT: positive ENT inspection nml Neck: positive Nml inspection Respiratory: positive Chest non-tender, No respiratory distress and Breath sounds nml Cardiovascular: positive Regular rate & rhythm Abdomen: positive Non-tender and Other (liquid stool in stoma bag) Back: positive Nml inspection Skin: positive Decubitus (right ischial and sacral decub ulcers) Extremities: positive Non-tender and No pedal edema Neurologic/Psychiatric: positive Other (oriented to self. ) Comments/Other: Lab Results 01/16/25 05:13 01/16/25 05:13 Other Labs: Lab Results x24hrs 01/16/25 Range/Units 05:13 WBC 12.6 H (4.8-10.8) x10^3/uL RBC 3.83 L (4.70-6.10) 10^6/uL Hgb 9.8 L (14.0-18.0) g/dL Hct 31.5 L (42.0-52.0) % MCV 82.2 (80.0-94.0) fL MCH 25.6 L (27.0-31.0) pg MCHC 31.1 L (32.0-36.0) g/dL RDW 17.2 H (12.0-15.0) % Plt Count 439 (130-450) 10^3/uL MPV 9.5 (7.4-11.4) fL Neut # (Auto) 6.6 (1.5-6.6) 10^3/uL Lymph # (Auto) 4.0 H (1.5-3.5) 10^3/uL [place] # (Auto) 0.8 (0.0-1.0) 10^3/uL Eos # (Auto) 0.9 H (0.0-0.7) 10^3/uL Baso # (Auto) 0.1 (0.0-0.1) 10^3/uL Absolute Nucleated RBC 0.03 x10^3/uL Nucleated RBC % 0.2 /100WBC Sodium 135 (135-145) mmol/L Potassium 3.8 (3.5-4.5) mmol/L Chloride 104 (101-111) mmol/L Carbon Dioxide 26 (21-32) mmol/L Anion Gap 5.0 L (6-13) BUN 23 H (6-20) mg/dL Creatinine 0.7 (0.6-1.3) mg/dL Estimated GFR (MDRD) 108 (>89) Glucose 111 H (74-104) mg/dL Calcium 8.2 L (8.5-10.3) mg/dL Assessment/Plan Problem List (1) Sepsis: Impression: Markers for sepsis are improving. WBC decreasing from 16 to 13.7. hypotension is resolving. his lactic acidosis improved and normalized shortly after admission. He is still on 2L [place]. his O2 sat are in the mid 90's. Will attempt to wean. Blood cultures NGTD 01/15/2025: WBC down to 12.7. Wound cultures with Pseudomonas and group A strep. Urine culture with Proteus. I have changed his antibiotic regimen to cefepime. Will discontinue vancomycin. Continue daily CBC 01/16/2025: Wound care with Dakin's solution started last night. WBC still elevated at 12.6. Continue cefepime, will likely need extended course of Ciprofloxacin at discharge (2) UTI (urinary tract infection): Impression: Urine culture with Proteus. This is susceptible to the Rocephin that he has been on. He was escalated to cefepime because of Pseudomonas in his wound cultures. Today he is day 4 of antibiotics for UTI. (3) Decubitus ulcer of sacral area: Impression: Will need plastic surgery to help with wound healing. His wound has tested positive for strep and Pseudomonas. I have changed his antibiotic to cefepime to cover Pseudomonas. Placement will be difficult because of his high need for wound care. Continue dressing changes with 1/4 Dakin's solution wet-to-dry (4) Protein calorie malnutrition: Impression: 19kg weight loss since Aug 2024. (17%), 4 kg in the last month. This complicates wound healing. nutrition is consulted and are adjusting supplements. 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 Will continue with present schaeffer. (6) Right leg DVT: Impression: continue eliquis. (7) Morbid obesity due to excess calories: Impression: complicates care. (8) Chronic diastolic (congestive) heart failure: Impression: Last echocardiogram on record is 2016. At that time patient had an ejection fraction of 50 to 55% with severe right ventricular enlargement and mild impairment of his right ventricular systolic function. Continue home dose Lasix (9) Hyperlipemia: Impression: Continue statin. (10) Hypertension: Impression: History of hypertension on Coreg 6.25 mg twice daily. BP 121/64 today. Continue management Qualifiers: Hypertension type: unspecified Qualified Code(s): I10 - Essential (primary) hypertension (11) Pacemaker: Impression: History of pacemaker
[2025-01-17 05:02] LABS: BASOPHILS # (AUTO) 0.1 10^3/uL (0.0-0.1); BASOPHILS % (AUTO) 0.7 %; EOSINOPHILS % (AUTO) 6.5 %; HCT - HEMATOCRIT 31.8 % (42.0-52.0); HGB - HEMOGLOBIN 9.5 g/dL (14.0-18.0); LYMPHOCYTES # (AUTO) 4.4 10^3/uL (1.5-3.5); LYMPHOCYTES % (AUTO) 28.8 %; MEAN CORPUSCULAR HEMOGLOBIN 24.7 pg (27.0-31.0); MEAN CORPUSCULAR HGB CONC 29.9 g/dL (32.0-36.0); MEAN CORPUSCULAR VOLUME 82.8 fL (80.0-94.0); MEAN PLATELET VOLUME 9.7 fL (7.4-11.4); MONOCYTES # (AUTO) 1.1 10^3/uL (0.0-1.0); MONOCYTES % (AUTO) 7.2 %; NEUTROPHILS # (AUTO) 8.4 10^3/uL (1.5-6.6); NEUTROPHILS % (AUTO) 54.6 %; NRBC ABSOLUTE COUNT (AUTO) 0.05 x10^3/uL; NUCLEATED RED BLOOD CELLS AUTO 0.3 /100WBC; PLT - PLATELET COUNT 476 10^3/uL (130-450); RED BLOOD COUNT 3.84 10^6/uL (4.70-6.10); RED CELL DISTRIBUTION WIDTH 17.3 % (12.0-15.0); WHITE BLOOD COUNT 15.3 x10^3/uL (4.8-10.8)
[2025-01-17 05:15] LABS: CALCIUM 8.3 mg/dL (8.5-10.3); CREATININE 0.7 mg/dL (0.6-1.3)
[2025-01-17] MEDS ORDERED: MULTIVITAMIN WITH IRON PO SCH (09:00)
[2025-01-17] MEDS: metroNIDAZOLE 500 MG/100 ML 500 MG/100 ML BAG IV SCH (10:01)
[2025-01-17] MEDS: diphenhydrAMINE 25 MG CAPSULE PO PRN (11:06)
[2025-01-17] MEDS ORDERED: metroNIDAZOLE 250 MG TABLET PO SCH (12:00)
--- NOTE | 2025-01-17 14:09 | PROVIDER PROGRESS NOTE ---
Subjective Prog Note Date Prog Note Date: 01/17/25 Subjective Pt reports feeling: No change Current Medications Current Medications Current Medications: Current Medications Generic Name Dose Route Start Last Admin Trade Name Helio PRN Reason Stop Dose Admin Acetaminophen 650 mg 01/13/25 14:50 01/17/25 10:07 Acetaminophen 325 Mg Tablet PO 650 mg Q4HR PRN Administration Pain 1 to 4, or Fever Apixaban 5 mg 01/13/25 21:00 01/17/25 08:05 Apixaban 5 Mg Tablet PO 5 mg BID BILLIE Administration Ascorbic Acid 500 mg 01/14/25 09:00 01/17/25 08:05 Ascorbic Acid 500 Mg Tablet PO 500 mg DAILY BILLIE Administration Atorvastatin Calcium 40 mg 01/14/25 09:00 01/17/25 08:05 Atorvastatin 40 Mg Tablet PO 40 mg DAILY BILLIE Administration Calcium Carbonate/Glycine 500 mg 01/13/25 17:00 01/16/25 16:17 Calcium Carb (Oyster Shell) 500 Mg Tablet PO 500 mg QDDINNER BILLIE Administration Carvedilol 6.25 mg 01/13/25 21:00 01/17/25 08:05 Carvedilol 3.125 Mg Tablet PO 6.25 mg BID BILLIE Administration Cefepime HCl 2 gm 01/15/25 10:00 01/17/25 09:16 Cefepime 2 Gm Vial IVP 2 gm Q12H BILLIE Administration Cholecalciferol 25 mcg 01/14/25 09:00 01/17/25 08:05 Cholecalciferol 25 Mcg Tablet PO 25 mcg DAILY BILLIE Administration Diphenhydramine HCl 25 mg 01/17/25 10:23 01/17/25 11:06 Diphenhydramine 25 Mg Capsule PO 25 mg Q4HR PRN Administration Allergy Symptoms Furosemide 20 mg 01/14/25 09:00 01/17/25 08:05 Furosemide 20 Mg Tablet PO 20 mg BID BILLIE Administration Metronidazole 500 mg in 100 mls @ 100 mls/hr 01/17/25 10:00 01/17/25 10:01 Flagyl 500 Mg/100 Ml IV 100 mls/hr Q8H BILLIE Administration Multivitamins/Minerals 1 tab 01/14/25 10:00 01/17/25 08:05 Multivitamin W/Minerals Tablet PO 1 tab DAILYWM BILLIE Administration Ondansetron HCl 4 mg 01/13/25 14:50 Ondansetron 4 Mg/2 Ml Vial IVP Q6HR PRN Nausea / Vomiting Oxycodone HCl 5 mg 01/13/25 14:50 01/17/25 06:57 Oxycodone 5 Mg Tablet PO 5 mg Q4HR PRN Administration Pain 5 to 7 Senna 17.2 mg 01/16/25 10:51 Senna 8.6 Mg Tablet PO DAILY PRN DAY 4 WO BM Sodium Chloride 10 ml 01/13/25 14:50 Sodium Chloride Flush 0.9% 10 Ml Syringe IVP PRN PRN NEEDED PER PROVIDER ORDERS Sodium Chloride 10 ml 01/13/25 17:00 01/17/25 08:06 Sodium Chloride Flush 0.9% 10 Ml Syringe IVP 10 ml 0100,0900,1700 BILLIE Administration Sodium Hypochlorite 200 ml 01/15/25 11:00 01/17/25 09:16 Sodium Hypochlorite 473 Ml Bottle TOP 200 ml BID BILLIE Administration Vancomycin HCl 1 each 01/17/25 14:05 Vancomycin: Pharmacy To Dose MC .ONCE PRN PER PHARMACY Zinc Oxide 113 gm 01/13/25 17:36 01/13/25 17:52 Cod Liver Oil/Zinc Oxide 113 Gm Tube TOP 1 applic PRN PRN Administration Skin Care Zinc Sulfate 220 mg 01/15/25 09:00 01/17/25 08:05 Zinc Sulfate 220 Mg Capsule PO 01/25/25 08:59 220 mg DAILY BILLIE Administration Objective Vital Signs/Intake & Output Reviewed Vital Signs: Yes Vital Signs: Vital Signs x48h Temp Pulse Resp BP Pulse Ox 01/17/25 08:32 36.5 C 83 20 111/65 93 Intake & Output: Intake & Output 01/14/25 01/15/25 01/16/25 01/17/25 23:59 23:59 23:59 23:59 Intake Total 2356 / 2356 1340 / 1340 1120 / 1120 677 / 677 Output Total 975 / 975 2150 / 2150 1425 / 1425 700 / 700 Balance 1381 / 1381 -810 / -810 -305 / -305 -23 / -23 Objective General Appearance: positive No acute distress and Alert Eyes Bilateral: positive Normal inspection and Conjunctivae nml ENT: positive ENT inspection nml Neck: positive Nml inspection Respiratory: positive Chest non-tender, No respiratory distress and Breath sounds nml Cardiovascular: positive Regular rate & rhythm Abdomen: positive Non-tender and Other (liquid stool in stoma bag) Back: positive Nml inspection Skin: positive Decubitus (right ischial and sacral decub ulcers) Extremities: positive Non-tender and No pedal edema Neurologic/Psychiatric: positive Other (oriented to self. ) Comments/Other: Lab Results 01/17/25 04:29 01/17/25 04:29 Other Labs: Lab Results x24hrs 01/17/25 01/17/25 Range/Units 11:14 04:29 WBC 15.3 H (4.8-10.8) x10^3/uL RBC 3.84 L (4.70-6.10) 10^6/uL Hgb 9.5 L (14.0-18.0) g/dL Hct 31.8 L (42.0-52.0) % MCV 82.8 (80.0-94.0) fL MCH 24.7 L (27.0-31.0) pg MCHC 29.9 L (32.0-36.0) g/dL RDW 17.3 H (12.0-15.0) % Plt Count 476 H (130-450) 10^3/uL MPV 9.7 (7.4-11.4) fL Neut # (Auto) 8.4 H (1.5-6.6) 10^3/uL Lymph # (Auto) 4.4 H (1.5-3.5) 10^3/uL Bonner # (Auto) 1.1 H (0.0-1.0) 10^3/uL Eos # (Auto) 1.0 H (0.0-0.7) 10^3/uL Baso # (Auto) 0.1 (0.0-0.1) 10^3/uL Absolute Nucleated RBC 0.05 x10^3/uL Nucleated RBC % 0.3 /100WBC Sodium 135 (135-145) mmol/L Potassium 4.0 (3.5-4.5) mmol/L Chloride 101 (101-111) mmol/L Carbon Dioxide 27 (21-32) mmol/L Anion Gap 7.0 (6-13) BUN 26 H (6-20) mg/dL Creatinine 0.7 (0.6-1.3) mg/dL Estimated GFR (MDRD) 108 (>89) Glucose 114 H (74-104) mg/dL Calcium 8.3 L (8.5-10.3) mg/dL Nasal Screen MRSA (PCR) POSITIVE A* (NEGATIVE) Assessment/Plan Problem List (1) Sepsis: Impression: Markers for sepsis are improving. WBC decreasing from 16 to 13.7. hypotension is resolving. his lactic acidosis improved and normalized shortly after admission. He is still on 2L NC. his O2 sat are in the mid 90's. Will attempt to wean. Blood cultures NGTD 01/15/2025: WBC down to 12.7. Wound cultures with Pseudomonas and group A strep. Urine culture with Proteus. I have changed his antibiotic regimen to cefepime. Will discontinue vancomycin. Continue daily CBC 01/16/2025: Wound care with Dakin's solution started last night. WBC still elevated at 12.6. Continue cefepime, will likely need extended course of Ciprofloxacin at discharge 01/17/2025: WBC has gone up to 15.3, Which is concerning for worsening sepsis. Afebrile, vital signs stable. I escalated his antibiotics to cefepime and Flagyl. I ordered a MRSA swab which came back positive, so I am also adding vancomycin. He has good kidney function, Vanco troughs per pharmacy protocol. Continue to monitor renal function to watch for toxicity. Continue daily CBC to monitor white blood cell count. If his white blood cell count is worse again tomorrow, we will consider repeat CT scan to look for other sources of infection (2) UTI (urinary tract infection): Impression: Urine culture with Proteus. This is susceptible to the Rocephin that he has been on. He was escalated to cefepime because of Pseudomonas in his wound cultures. Today he is day 4 of antibiotics for UTI. (3) Decubitus ulcer of sacral area: Impression: Will need plastic surgery to help with wound healing. His wound has tested positive for strep and Pseudomonas. I have changed his antibiotic to cefepime to cover Pseudomonas. Placement will be difficult because of his high need for wound care. Continue dressing changes with 1/4 Dakin's solution wet-to-dry (4) Protein calorie malnutrition: Impression: 19kg weight loss since Aug 2024. (17%), 4 kg in the last month. This complicates wound healing. nutrition is consulted and are adjusting supplements. 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 Will continue with present schaeffer. (6) Right leg DVT: Impression: continue eliquis. (7) Morbid obesity due to excess calories: Impression: complicates care. (8) Chronic diastolic (congestive) heart failure: Impression: Last echocardiogram on record is 2016. At that time patient had an ejection fraction of 50 to 55% with severe right ventricular enlargement and mild impairment of his right ventricular systolic function. Continue home dose Lasix (9) Hyperlipemia: Impression: Continue statin. (10) Hypertension: Impression: History of hypertension on Coreg 6.25 mg twice daily. BP 121/64 today. Continue management Qualifiers: Hypertension type: unspecified Qualified Code(s): I10 - Essential (primary) hypertension (11) Pacemaker: Impression: History of pacemaker
[2025-01-17] MEDS: VANCOMYCIN INJ 2 GM in SODIUM CHLORIDE 0.9% 500 ML IV ONE (15:11)
[2025-01-18] MEDS ORDERED: VANCOMYCIN 1 GM VIAL ONE (03:13)
[2025-01-18] MEDS: VANCOMYCIN INJ 1 GM in SODIUM CHLORIDE 0.9% 250 ML IV SCH (03:22)
[2025-01-18 05:23] LABS: BASOPHILS # (AUTO) 0.1 10^3/uL (0.0-0.1); BASOPHILS % (AUTO) 0.6 %; EOSINOPHILS % (AUTO) 7.6 %; HCT - HEMATOCRIT 31.3 % (42.0-52.0); HGB - HEMOGLOBIN 9.7 g/dL (14.0-18.0); LYMPHOCYTES # (AUTO) 4.2 10^3/uL (1.5-3.5); LYMPHOCYTES % (AUTO) 30.7 %; MEAN CORPUSCULAR HEMOGLOBIN 25.5 pg (27.0-31.0); MEAN CORPUSCULAR VOLUME 82.4 fL (80.0-94.0); MEAN PLATELET VOLUME 9.2 fL (7.4-11.4); MONOCYTES # (AUTO) 1.1 10^3/uL (0.0-1.0); MONOCYTES % (AUTO) 7.9 %; NEUTROPHILS # (AUTO) 6.9 10^3/uL (1.5-6.6); NEUTROPHILS % (AUTO) 50.2 %; NRBC ABSOLUTE COUNT (AUTO) 0.03 x10^3/uL; NUCLEATED RED BLOOD CELLS AUTO 0.2 /100WBC; PLT - PLATELET COUNT 431 10^3/uL (130-450); RED CELL DISTRIBUTION WIDTH 17.6 % (12.0-15.0); WHITE BLOOD COUNT 13.7 x10^3/uL (4.8-10.8)
[2025-01-18 05:36] LABS: CREATININE 0.7 mg/dL (0.6-1.3)
[2025-01-18] MEDS: polyethylene glycoL 3350 17 GM PACKET PO SCH (10:14)
[2025-01-18] MEDS: THIAMINE 100 MG/1 ML 2 ML MDV IVP ONE (11:35)
[2025-01-18] MEDS: LACTATED RINGERS 1,000 ML IV ONE (11:35)
[2025-01-18] MEDS: INSULIN LISPRO 300 UNIT/3 ML PEN SUBQ SCH (11:41)
[2025-01-18] MEDS ORDERED: SODIUM CHLORIDE 0.9% 1,000 ML IV SCH (12:00)
--- NOTE | 2025-01-18 15:01 | PROVIDER PROGRESS NOTE ---
Subjective Prog Note Date Prog Note Date: 01/18/25 Subjective Pt reports feeling: No change Current Medications Current Medications Current Medications: Current Medications Generic Name Dose Route Start Last Admin Trade Name Helio PRN Reason Stop Dose Admin Acetaminophen 650 mg 01/13/25 14:50 01/17/25 10:07 Acetaminophen 325 Mg Tablet PO 650 mg Q4HR PRN Administration Pain 1 to 4, or Fever Apixaban 5 mg 01/13/25 21:00 01/18/25 08:00 Apixaban 5 Mg Tablet PO 5 mg BID BILLIE Administration Ascorbic Acid 500 mg 01/14/25 09:00 01/18/25 08:00 Ascorbic Acid 500 Mg Tablet PO 500 mg DAILY BILLIE Administration Atorvastatin Calcium 40 mg 01/14/25 09:00 01/18/25 08:00 Atorvastatin 40 Mg Tablet PO 40 mg DAILY BILLIE Administration Calcium Carbonate/Glycine 500 mg 01/13/25 17:00 01/17/25 17:23 Calcium Carb (Oyster Shell) 500 Mg Tablet PO 500 mg QDDINNER BILLIE Administration Carvedilol 6.25 mg 01/13/25 21:00 01/18/25 08:00 Carvedilol 3.125 Mg Tablet PO 6.25 mg BID BILLIE Administration Cefepime HCl 2 gm 01/15/25 10:00 01/18/25 10:15 Cefepime 2 Gm Vial IVP 2 gm Q12H BILLIE Administration Cholecalciferol 25 mcg 01/14/25 09:00 01/18/25 08:00 Cholecalciferol 25 Mcg Tablet PO 25 mcg DAILY BILLIE Administration Diphenhydramine HCl 25 mg 01/17/25 10:23 01/18/25 06:32 Diphenhydramine 25 Mg Capsule PO 25 mg Q4HR PRN Administration Allergy Symptoms Furosemide 20 mg 01/14/25 09:00 01/18/25 08:00 Furosemide 20 Mg Tablet PO 20 mg BID BILLIE Administration Vancomycin HCl 1 gm/ Sodium 250 mls @ 167 mls/hr 01/18/25 03:00 01/18/25 04:58 Chloride IV Infused Q12H BILLIE Infusion Sodium Chloride 1,000 mls @ 100 mls/hr 01/18/25 15:35 Normal Saline 0.9% IV .Q10H BILLIE Insulin Human Lispro 1 - 5 unit 01/18/25 12:00 01/18/25 11:41 Insulin Lispro 300 Unit/3 Ml Pen SUBQ Not Given 0800,1200,1700,2100 [facility] Protocol Mirtazapine 15 mg 01/18/25 21:00 Mirtazapine 15 Mg Tablet PO QPM [facility] Ondansetron HCl 4 mg 01/13/25 14:50 Ondansetron 4 Mg/2 Ml Vial IVP Q6HR PRN Nausea / Vomiting Oxycodone HCl 5 mg 01/13/25 14:50 01/18/25 06:00 Oxycodone 5 Mg Tablet PO 5 mg Q4HR PRN Administration Pain 5 to 7 Polyethylene Glycol 17 gm 01/18/25 08:15 01/18/25 13:04 Polyethylene Glycol 3350 17 Gm Packet PO Not Given DAILY [facility] Multivit/Folic Acid/Iron 1 tab 01/19/25 08:00 Vitamin Tablet PO DAILYWM [facility] Senna 17.2 mg 01/16/25 10:51 Senna 8.6 Mg Tablet PO DAILY PRN DAY 4 WO BM Sodium Chloride 10 ml 01/13/25 14:50 Sodium Chloride Flush 0.9% 10 Ml Syringe IVP PRN PRN NEEDED PER PROVIDER ORDERS Sodium Chloride 10 ml 01/13/25 17:00 01/18/25 08:00 Sodium Chloride Flush 0.9% 10 Ml Syringe IVP 10 ml 0100,0900,1700 [facility] Administration Sodium Hypochlorite 200 ml 01/15/25 11:00 01/18/25 06:26 Sodium Hypochlorite 473 Ml Bottle TOP 200 ml BID BILLIE Administration Thiamine HCl 100 mg 01/19/25 09:00 Thiamine 100 Mg Tablet PO DAILY [facility] Zinc Oxide 113 gm 01/13/25 17:36 01/13/25 17:52 Cod Liver Oil/Zinc Oxide 113 Gm Tube TOP 1 applic PRN PRN Administration Skin Care Zinc Sulfate 220 mg 01/15/25 09:00 01/18/25 08:00 Zinc Sulfate 220 Mg Capsule PO 01/25/25 08:59 220 mg DAILY [facility] Administration Objective Vital Signs/Intake & Output Reviewed Vital Signs: Yes Vital Signs: Vital Signs x48h Temp Pulse Resp BP Pulse Ox 01/18/25 07:53 36.3 C L 69 16 104/56 L 92 Intake & Output: Intake & Output 01/15/25 01/16/25 01/17/25 01/18/25 23:59 23:59 23:59 23:59 Intake Total 1340 / 1340 1120 / 1120 1937 / 1937 1170 / 1170 Output Total 2150 / 2150 1425 / 1425 1505 / 1505 650 / 650 Balance -810 / -810 -305 / -305 432 / 432 520 / 520 Objective General Appearance: positive No acute distress and Alert Eyes Bilateral: positive Normal inspection and Conjunctivae nml ENT: positive ENT inspection nml Neck: positive Nml inspection Respiratory: positive Chest non-tender, No respiratory distress and Breath sounds nml Cardiovascular: positive Regular rate & rhythm Abdomen: positive Non-tender and Other (liquid stool in stoma bag) Back: positive Nml inspection Skin: positive Decubitus (right ischial and sacral decub ulcers) Extremities: positive Non-tender and No pedal edema Neurologic/Psychiatric: positive Other (oriented to self. ) Comments/Other: Lab Results 01/18/25 05:07 01/18/25 05:07 Other Labs: Lab Results x24hrs 01/18/25 01/18/25 Range/Units 11:41 05:07 WBC 13.7 H (4.8-10.8) x10^3/uL RBC 3.80 L (4.70-6.10) 10^6/uL Hgb 9.7 L (14.0-18.0) g/dL Hct 31.3 L (42.0-52.0) % MCV 82.4 (80.0-94.0) fL MCH 25.5 L (27.0-31.0) pg MCHC 31.0 L (32.0-36.0) g/dL RDW 17.6 H (12.0-15.0) % Plt Count 431 (130-450) 10^3/uL MPV 9.2 (7.4-11.4) fL Neut # (Auto) 6.9 H (1.5-6.6) 10^3/uL Lymph # (Auto) 4.2 H (1.5-3.5) 10^3/uL Meigs # (Auto) 1.1 H (0.0-1.0) 10^3/uL Eos # (Auto) 1.0 H (0.0-0.7) 10^3/uL Baso # (Auto) 0.1 (0.0-0.1) 10^3/uL Absolute Nucleated RBC 0.03 x10^3/uL Nucleated RBC % 0.2 /100WBC Sodium 136 (135-145) mmol/L Potassium 4.0 (3.5-4.5) mmol/L Chloride 104 (101-111) mmol/L Carbon Dioxide 26 (21-32) mmol/L Anion Gap 6.0 (6-13) BUN 23 H (6-20) mg/dL Creatinine 0.7 (0.6-1.3) mg/dL Estimated GFR (MDRD) 108 (>89) Glucose 103 (74-104) mg/dL POC Whole Bld Glucose 118 (70-100) mg/dL Calcium 8.0 L (8.5-10.3) mg/dL Assessment/Plan Problem List (1) Sepsis: Impression: Markers for sepsis are improving. WBC decreasing from 16 to 13.7. hypotension is resolving. his lactic acidosis improved and normalized shortly after admission. He is still on 2L NC. his O2 sat are in the mid 90's. Will attempt to wean. Blood cultures NGTD 01/15/2025: WBC down to 12.7. Wound cultures with Pseudomonas and group A strep. Urine culture with Proteus. I have changed his antibiotic regimen to cefepime. Will discontinue vancomycin. Continue daily CBC 01/16/2025: Wound care with Dakin's solution started last night. WBC still elevated at 12.6. Continue cefepime, will likely need extended course of Ciprofloxacin at discharge 01/17/2025: WBC has gone up to 15.3, Which is concerning for worsening sepsis. Afebrile, vital signs stable. I escalated his antibiotics to cefepime and Flagyl. I ordered a MRSA swab which came back positive, so I am also adding vancomycin. He has good kidney function, Vanco troughs per pharmacy protocol. Continue to monitor renal function to watch for toxicity. Continue daily CBC to monitor white blood cell count. If his white blood cell count is worse again tomorrow, we will consider repeat CT scan to look for other sources of infection 01/18/2025: WBC has improved to 13.7 today. On further review of prior cultures, it appears that he has grown MRSA in his wounds previously. I believe that the cultures that we collected during this hospitalization just did not pick that up. I will continue his IV cefepime and vancomycin, while monitoring daily BMP to prevent renal toxicity. I added an extra fluid bolus of 1 L and started him on continuous fluids and blood glucose checks as his oral intake has been poor. I gave him a one-time dose of IV thiamine, and he will start vitamin with oral thiamine tomorrow. If his mentation/overall clinical picture does not improve by tomorrow, we will reach out to the family and discuss goals of care (2) UTI (urinary tract infection): Impression: Urine culture with Proteus. This is susceptible to the Rocephin that he has been on. He was escalated to cefepime because of Pseudomonas in his wound cultures. Today he is day 4 of antibiotics for UTI. (3) Decubitus ulcer of sacral area: Impression: Will need plastic surgery to help with wound healing. His wound has tested positive for strep and Pseudomonas. I have changed his antibiotic to cefepime to cover Pseudomonas. Placement will be difficult because of his high need for wound care. Continue dressing changes with 1/4 Dakin's solution wet-to-dry (4) Protein calorie malnutrition: Impression: 19kg weight loss since Aug 2024. (17%), 4 kg in the last month. This complicates wound healing. nutrition is consulted and are adjusting supplements. 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 Will continue with present schaeffer. (6) Right leg DVT: Impression: continue eliquis. (7) Morbid obesity due to excess calories: Impression: complicates care. (8) Chronic diastolic (congestive) heart failure: Impression: Last echocardiogram on record is 2016. At that time patient had an ejection fraction of 50 to 55% with severe right ventricular enlargement and mild impairment of his right ventricular systolic function. Continue home dose Lasix (9) Hyperlipemia: Impression: Continue statin. (10) Hypertension: Impression: History of hypertension on Coreg 6.25 mg twice daily. BP 121/64 today. Continue management Qualifiers: Hypertension type: unspecified Qualified Code(s): I10 - Essential (primary) hypertension (11) Pacemaker: Impression: History of pacemaker
[2025-01-18] MEDS: SODIUM CHLORIDE 0.9% 1,000 ML IV SCH (16:39)
[2025-01-18] MEDS: MIRTAZAPINE 15 MG TABLET PO SCH (21:33)
[2025-01-19 04:05] LABS: VANCOMYCIN,TROUGH 18.1 ug/mL
[2025-01-19] MEDS: THIAMINE 100 MG TABLET PO SCH (09:30)
[2025-01-19] MEDS: PRENATAL VITAMIN TABLET PO SCH (09:30)
[2025-01-19 10:01] LABS: HCT - HEMATOCRIT 30.9 % (42.0-52.0); HGB - HEMOGLOBIN 9.5 g/dL (14.0-18.0); MEAN CORPUSCULAR HEMOGLOBIN 25.5 pg (27.0-31.0); MEAN CORPUSCULAR HGB CONC 30.7 g/dL (32.0-36.0); MEAN CORPUSCULAR VOLUME 83.1 fL (80.0-94.0); RED BLOOD COUNT 3.72 10^6/uL (4.70-6.10); WHITE BLOOD COUNT 13.9 x10^3/uL (4.8-10.8)
[2025-01-19 10:18] LABS: CREATININE 0.6 mg/dL (0.6-1.3)
[2025-01-19] MEDS: MEROPENEM 1 GM VIAL IVP SCH (12:22)
--- NOTE | 2025-01-19 13:08 | PROVIDER PROGRESS NOTE ---
Subjective Prog Note Date Prog Note Date: 01/19/25 Subjective Pt reports feeling: No change Current Medications Current Medications Current Medications: Current Medications Generic Name Dose Route Start Last Admin Trade Name Freq PRN Reason Stop Dose Admin Acetaminophen 650 mg 01/13/25 14:50 01/17/25 10:07 Acetaminophen 325 Mg Tablet PO 650 mg Q4HR PRN Administration Pain 1 to 4, or Fever Apixaban 5 mg 01/13/25 21:00 01/19/25 10:07 Apixaban 5 Mg Tablet PO Not Given BID BILLIE Ascorbic Acid 500 mg 01/14/25 09:00 01/19/25 09:37 Ascorbic Acid 500 Mg Tablet PO Not Given DAILY [facility] Atorvastatin Calcium 40 mg 01/14/25 09:00 01/19/25 09:37 Atorvastatin 40 Mg Tablet PO Not Given DAILY [facility] Calcium Carbonate/Glycine 500 mg 01/13/25 17:00 01/18/25 16:29 Calcium Carb (Oyster Shell) 500 Mg Tablet PO 500 mg QDDINNER [facility] Administration Carvedilol 6.25 mg 01/13/25 21:00 01/19/25 10:07 Carvedilol 3.125 Mg Tablet PO Not Given BID [facility] Cholecalciferol 25 mcg 01/14/25 09:00 01/19/25 09:37 Cholecalciferol 25 Mcg Tablet PO Not Given DAILY [facility] Diphenhydramine HCl 25 mg 01/17/25 10:23 01/19/25 05:54 Diphenhydramine 25 Mg Capsule PO 25 mg Q4HR PRN Administration Allergy Symptoms Furosemide 20 mg 01/14/25 09:00 01/19/25 10:11 Furosemide 20 Mg Tablet PO Not Given BID [facility] Vancomycin HCl 1 gm/ Sodium 250 mls @ 167 mls/hr 01/18/25 03:00 01/19/25 05:36 Chloride IV Infused Q12H [facility] Infusion Sodium Chloride 1,000 mls @ 100 mls/hr 01/18/25 15:35 01/19/25 12:13 Normal Saline 0.9% IV 100 mls/hr .Q10H BILLIE Administration Insulin Human Lispro 1 - 5 unit 01/18/25 12:00 01/19/25 11:30 Insulin Lispro 300 Unit/3 Ml Pen SUBQ Not Given 0800,1200,1700,2100 [facility] Protocol Meropenem 1 gm 01/19/25 12:00 01/19/25 12:22 Meropenem 1 Gm Vial IVP 1 gm Q8H BILLIE Administration Mirtazapine 15 mg 01/18/25 21:00 01/18/25 21:33 Mirtazapine 15 Mg Tablet PO 15 mg QPM BILLIE Administration Ondansetron HCl 4 mg 01/13/25 14:50 Ondansetron 4 Mg/2 Ml Vial IVP Q6HR PRN Nausea / Vomiting Oxycodone HCl 5 mg 01/13/25 14:50 01/19/25 05:54 Oxycodone 5 Mg Tablet PO 5 mg Q4HR PRN Administration Pain 5 to 7 Polyethylene Glycol 17 gm 01/18/25 08:15 01/19/25 09:30 Polyethylene Glycol 3350 17 Gm Packet PO Not Given DAILY [facility] Multivit/Folic Acid/Iron 1 tab 01/19/25 08:00 01/19/25 09:37 Vitamin Tablet PO Not Given DAILYWM [facility] Senna 17.2 mg 01/16/25 10:51 Senna 8.6 Mg Tablet PO DAILY PRN DAY 4 WO BM Sodium Chloride 10 ml 01/13/25 14:50 Sodium Chloride Flush 0.9% 10 Ml Syringe IVP PRN PRN NEEDED PER PROVIDER ORDERS Sodium Chloride 10 ml 01/13/25 17:00 01/19/25 10:06 Sodium Chloride Flush 0.9% 10 Ml Syringe IVP 10 ml 0100,0900,1700 BILLIE Administration Sodium Hypochlorite 200 ml 01/15/25 11:00 01/19/25 06:55 Sodium Hypochlorite 473 Ml Bottle TOP 200 ml BID BILLIE Administration Sterile Water 20 ml 01/19/25 12:00 01/19/25 12:22 Water For Injection,Sterile 10 Ml Vial MC 20 ml Q8H BILLIE Administration Thiamine HCl 100 mg 01/19/25 09:00 01/19/25 09:37 Thiamine 100 Mg Tablet PO Not Given DAILY BILLIE Zinc Oxide 113 gm 01/13/25 17:36 01/13/25 17:52 Cod Liver Oil/Zinc Oxide 113 Gm Tube TOP 1 applic PRN PRN Administration Skin Care Zinc Sulfate 220 mg 01/15/25 09:00 01/19/25 09:37 Zinc Sulfate 220 Mg Capsule PO 01/25/25 08:59 Not Given DAILY BILLIE Objective Vital Signs/Intake & Output Reviewed Vital Signs: Yes Vital Signs: Vital Signs x48h Temp Pulse Resp BP Pulse Ox 01/19/25 08:56 36.4 C L 78 16 128/67 94 Intake & Output: Intake & Output 01/16/25 01/17/25 01/18/25 01/19/25 23:59 23:59 23:59 23:59 Intake Total 1120 / 1120 1937 / 1937 2860 / 2860 2145 / 2145 Output Total 1425 / 1425 1505 / 1505 1425 / 1425 650 / 650 Balance -305 / -305 432 / 432 1435 / 1435 1495 / 1495 Objective General Appearance: positive No acute distress and Alert (Talks little bit today) Eyes Bilateral: positive Normal inspection and Conjunctivae nml ENT: positive ENT inspection nml Neck: positive Nml inspection Respiratory: positive Chest non-tender, No respiratory distress and Breath sounds nml Cardiovascular: positive Regular rate & rhythm Abdomen: positive Non-tender and Other (liquid stool in stoma bag) Back: positive Nml inspection Skin: positive Decubitus (right ischial and sacral decub ulcers) Extremities: positive Non-tender and No pedal edema Neurologic/Psychiatric: positive Other (Answers yes/no questions) Comments/Other: Lab Results 01/19/25 09:55 01/19/25 09:55 Other Labs: Lab Results x24hrs 01/19/25 01/19/25 01/19/25 Range/Units 11:24 09:55 08:01 WBC 13.9 H (4.8-10.8) x10^3/uL RBC 3.72 L (4.70-6.10) 10^6/uL Hgb 9.5 L (14.0-18.0) g/dL Hct 30.9 L (42.0-52.0) % MCV 83.1 (80.0-94.0) fL MCH 25.5 L (27.0-31.0) pg MCHC 30.7 L (32.0-36.0) g/dL RDW 18.0 H (12.0-15.0) % Plt Count 387 (130-450) 10^3/uL MPV 9.0 (7.4-11.4) fL Sodium 135 (135-145) mmol/L Potassium 4.0 (3.5-4.5) mmol/L Chloride 106 (101-111) mmol/L Carbon Dioxide 26 (21-32) mmol/L Anion Gap 3.0 L (6-13) BUN 21 H (6-20) mg/dL Creatinine 0.6 (0.6-1.3) mg/dL Estimated GFR (MDRD) 129 (>89) Glucose 95 (74-104) mg/dL POC Whole Bld Glucose 91 96 (70-100) mg/dL Calcium 8.0 L (8.5-10.3) mg/dL Last Dose Date Last Dose Time Vancomycin Trough ug/mL 01/19/25 01/18/25 01/18/25 Range/Units 03:35 20:54 16:31 WBC (4.8-10.8) x10^3/uL RBC (4.70-6.10) 10^6/uL Hgb (14.0-18.0) g/dL Hct (42.0-52.0) % MCV (80.0-94.0) fL MCH (27.0-31.0) pg MCHC (32.0-36.0) g/dL RDW (12.0-15.0) % Plt Count (130-450) 10^3/uL MPV (7.4-11.4) fL Sodium (135-145) mmol/L Potassium (3.5-4.5) mmol/L Chloride (101-111) mmol/L Carbon Dioxide (21-32) mmol/L Anion Gap (6-13) BUN (6-20) mg/dL Creatinine (0.6-1.3) mg/dL Estimated GFR (MDRD) (>89) Glucose (74-104) mg/dL POC Whole Bld Glucose 165 110 (70-100) mg/dL Calcium (8.5-10.3) mg/dL Last Dose Date 01/19/25 Last Dose Time 0342 Vancomycin Trough 18.1 ug/mL Assessment/Plan Problem List (1) Sepsis: Impression: Markers for sepsis are improving. WBC decreasing from 16 to 13.7. hypotension is resolving. his lactic acidosis improved and normalized shortly after admission. He is still on 2L NC. his O2 sat are in the mid 90's. Will attempt to wean. Blood cultures NGTD 01/15/2025: WBC down to 12.7. Wound cultures with Pseudomonas and group A strep. Urine culture with Proteus. I have changed his antibiotic regimen to cefepime. Will discontinue vancomycin. Continue daily CBC 01/16/2025: Wound care with Dakin's solution started last night. WBC still elevated at 12.6. Continue cefepime, will likely need extended course of Ciprofloxacin at discharge 01/17/2025: WBC has gone up to 15.3, Which is concerning for worsening sepsis. Afebrile, vital signs stable. I escalated his antibiotics to cefepime and Flagyl. I ordered a MRSA swab which came back positive, so I am also adding vancomycin. He has good kidney function, Vanco troughs per pharmacy protocol. Continue to monitor renal function to watch for toxicity. Continue daily CBC to monitor white blood cell count. If his white blood cell count is worse again tomorrow, we will consider repeat CT scan to look for other sources of infection 01/18/2025: WBC has improved to 13.7 today. On further review of prior cultures, it appears that he has grown MRSA in his wounds previously. I believe that the cultures that we collected during this hospitalization just did not pick that up. I will continue his IV cefepime and vancomycin, while monitoring daily BMP to prevent renal toxicity. I added an extra fluid bolus of 1 L and started him on continuous fluids and blood glucose checks as his oral intake has been poor. I gave him a one-time dose of IV thiamine, and he will start vitamin with oral thiamine tomorrow. If his mentation/overall clinical picture does not improve by tomorrow, we will reach out to the family and discuss goals of care 01/19/2025: Concern was raised regarding his wound cultures. It shows Pseudomonas but it did not specifically test for sensitivity to cefepime. I discussed this with the lab, they will send out a confirmation sensitivity which may result by Friday or Friday. Preliminary testing with her equipment shows that this could be a Pseudomonas that is resistant to cephalosporin, so I am escalating him to meropenem. WBC 13.9 today, not significantly increased. Continuing meropenem and vancomycin dosed for renal function to prevent toxicity. Will have goals of care discussion with when she is at bedside as his prognosis is poor as long as he is not eating. ACP discussion in separate note, now pursuing hospice (2) UTI (urinary tract infection): Impression: Urine culture with Proteus. This is susceptible to the Rocephin that he has been on. He was escalated to cefepime because of Pseudomonas in his wound cultures. Today he is day 4 of antibiotics for UTI. (3) Decubitus ulcer of sacral area: Impression: Will need plastic surgery to help with wound healing. His wound has tested positive for strep and Pseudomonas. I have changed his antibiotic to cefepime to cover Pseudomonas. Placement will be difficult because of his high need for wound care. Continue dressing changes with 1/4 Dakin's solution wet-to-dry (4) Protein calorie malnutrition: Impression: 19kg weight loss since Aug 2024. (17%), 4 kg in the last month. This complicates wound healing. nutrition is consulted and are adjusting supplements. Added mirtazapine 15 mg p.o. every afternoon (5) Neuromuscular dysfunction of bladder: Impression: leakage at schaeffer, attempted replacement with larger bore cath and failed. Will continue with present schaeffer. (6) Right leg DVT: Impression: continue eliquis. (7) Morbid obesity due to excess calories: Impression: complicates care. (8) Chronic diastolic (congestive) heart failure: Impression: Last echocardiogram on record is 2016. At that time patient had an ejection fraction of 50 to 55% with severe right ventricular enlargement and mild impairment of his right ventricular systolic function. Continue home dose Lasix (9) Hyperlipemia: Impression: Continue statin. (10) Hypertension: Impression: History of hypertension on Coreg 6.25 mg twice daily. BP 121/64 today. Continue management Qualifiers: Hypertension type: unspecified Qualified Code(s): I10 - Essential (primary) hypertension (11) Pacemaker: Impression: History of pacemaker
--- NOTE | 2025-01-19 15:42 | ADVANCE CARE PLANNING NOTE ---
Advance Care Planning Planning Encounter Date: 01/19/25 Purpose: Discussed treatment options, goals of care Parties in Attendance: Decisional Capacity of the Patient: None Diagnosis for Encounter (1) Sepsis: Summary: Sepsis is secondary to extensive sacral wounds. Escalated to meropenem and vancomycin today (2) UTI (urinary tract infection): Summary: Proteus UTI (3) Decubitus ulcer of sacral area: Summary: Wound care pictures elsewhere in chart. For full healing, he would need to have completely optimize nutrition as well as plastic surgery consult in the outpatient setting (4) Protein calorie malnutrition: Summary: He has been refusing to eat for the past 2 days. Intermittently refuses pills as well. I tried adding mirtazapine but he is still not eating today (5) Chronic diastolic (congestive) heart failure: Summary: Last echo 06/25/2017 with EF 50 to 55%. Not in acute exacerbation Encounter Subjective/Patient's Story: Patient is retired, progressively more debilitated. Spinal cord injury in 2000, has not been able to ambulate for over a year. [facility] resident Objective/Medical Story: This is an 84-year-old male who is a nonambulatory resident of [facility]. He has been bedbound since 2022. 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 He has had significant wounds. He was originally seen in June of last year for these wounds, and transferred to [place]. Since then he has been receiving aggressive wound care and had a diverting colostomy placed to promote wound healing. This is his second admission since then for complication of his wounds.. His wounds are positive for Pseudomonas as well as strep. He is not improving thus far on IV antibiotics, and today he has been escalated to meropenem and vancomycin. Goals of Care: I discussed the severity of his illness with his . She wants to make sure that he is given every opportunity that he can be given, but does understand the poor prognosis. I informed her that I have escalated his antibiotics, but I did recommend talking with hospice services. She feels that the end is near and she is okay with discussing with hospice and has already started getting his affairs in order Plan: Will continue meropenem and vancomycin for now, referrals being made to hospice Code Status: Attempt Resuscitation (For now) Time spent on advance care plannin
[2025-01-20] MEDS ORDERED: VANCOMYCIN 1 GM VIAL ONE (05:16)
[2025-01-20 06:01] LABS: BASOPHILS # (AUTO) 0.1 10^3/uL (0.0-0.1); BASOPHILS % (AUTO) 0.7 %; EOSINOPHILS # (AUTO) 1.2 10^3/uL (0.0-0.7); EOSINOPHILS % (AUTO) 9.5 %; HCT - HEMATOCRIT 34.3 % (42.0-52.0); HGB - HEMOGLOBIN 10.1 g/dL (14.0-18.0); LYMPHOCYTES # (AUTO) 4.2 10^3/uL (1.5-3.5); MEAN CORPUSCULAR HEMOGLOBIN 25.1 pg (27.0-31.0); MEAN CORPUSCULAR HGB CONC 29.4 g/dL (32.0-36.0); MEAN CORPUSCULAR VOLUME 85.1 fL (80.0-94.0); MEAN PLATELET VOLUME 9.6 fL (7.4-11.4); MONOCYTES # (AUTO) 0.9 10^3/uL (0.0-1.0); MONOCYTES % (AUTO) 7.2 %; NEUTROPHILS # (AUTO) 5.7 10^3/uL (1.5-6.6); NEUTROPHILS % (AUTO) 45.9 %; NRBC ABSOLUTE COUNT (AUTO) 0.02 x10^3/uL; NUCLEATED RED BLOOD CELLS AUTO 0.2 /100WBC; PLT - PLATELET COUNT 455 10^3/uL (130-450); RED BLOOD COUNT 4.03 10^6/uL (4.70-6.10); RED CELL DISTRIBUTION WIDTH 18.6 % (12.0-15.0); WHITE BLOOD COUNT 12.4 x10^3/uL (4.8-10.8)
[2025-01-20 06:14] LABS: CALCIUM 8.2 mg/dL (8.5-10.3); CREATININE 0.7 mg/dL (0.6-1.3); POTASSIUM 3.8 mmol/L (3.5-4.5)
[2025-01-20 14:19] LABS: VANCOMYCIN,TROUGH 22.7 ug/mL
--- NOTE | 2025-01-20 15:00 | PROVIDER PROGRESS NOTE ---
Subjective Prog Note Date Prog Note Date: 01/20/25 Subjective Pt reports feeling: No change Current Medications Current Medications Current Medications: Current Medications Generic Name Dose Route Start Last Admin Trade Name Freq PRN Reason Stop Dose Admin Acetaminophen 650 mg 01/13/25 14:50 01/20/25 00:45 Acetaminophen 325 Mg Tablet PO 650 mg Q4HR PRN Administration Pain 1 to 4, or Fever Apixaban 5 mg 01/13/25 21:00 01/20/25 08:08 Apixaban 5 Mg Tablet PO 5 mg BID BILLIE Administration Ascorbic Acid 500 mg 01/14/25 09:00 01/20/25 08:08 Ascorbic Acid 500 Mg Tablet PO 500 mg DAILY BILLIE Administration Atorvastatin Calcium 40 mg 01/14/25 09:00 01/20/25 08:08 Atorvastatin 40 Mg Tablet PO 40 mg DAILY BILLIE Administration Calcium Carbonate/Glycine 500 mg 01/13/25 17:00 01/19/25 18:55 Calcium Carb (Oyster Shell) 500 Mg Tablet PO Not Given QDDINNER BILLIE Carvedilol 6.25 mg 01/13/25 21:00 01/20/25 08:08 Carvedilol 3.125 Mg Tablet PO 6.25 mg BID BILLIE Administration Cholecalciferol 25 mcg 01/14/25 09:00 01/20/25 08:08 Cholecalciferol 25 Mcg Tablet PO 25 mcg DAILY BILLIE Administration Diphenhydramine HCl 25 mg 01/17/25 10:23 01/19/25 05:54 Diphenhydramine 25 Mg Capsule PO 25 mg Q4HR PRN Administration Allergy Symptoms Furosemide 20 mg 01/14/25 09:00 01/20/25 08:08 Furosemide 20 Mg Tablet PO 20 mg BID BILLIE Administration Vancomycin HCl 1 gm/ Sodium 250 mls @ 167 mls/hr 01/18/25 03:00 01/20/25 14:46 Chloride IV 100 mls/hr Q12H BILLIE Administration Sodium Chloride 1,000 mls @ 100 mls/hr 01/18/25 15:35 01/20/25 10:24 Normal Saline 0.9% IV 100 mls/hr .Q10H BILLIE Administration Insulin Human Lispro 1 - 5 unit 01/18/25 12:00 01/20/25 11:51 Insulin Lispro 300 Unit/3 Ml Pen SUBQ Not Given 0800,1200,1700,2100 [facility] Protocol Meropenem 1 gm 01/19/25 12:00 01/20/25 11:51 Meropenem 1 Gm Vial IVP 1 gm Q8H BILLIE Administration Mirtazapine 15 mg 01/18/25 21:00 01/19/25 20:23 Mirtazapine 15 Mg Tablet PO 15 mg QPM BILLIE Administration Ondansetron HCl 4 mg 01/13/25 14:50 Ondansetron 4 Mg/2 Ml Vial IVP Q6HR PRN Nausea / Vomiting Oxycodone HCl 5 mg 01/13/25 14:50 01/20/25 00:45 Oxycodone 5 Mg Tablet PO 5 mg Q4HR PRN Administration Pain 5 to 7 Polyethylene Glycol 17 gm 01/18/25 08:15 01/20/25 08:27 Polyethylene Glycol 3350 17 Gm Packet PO Not Given DAILY [facility] Multivit/Folic Acid/Iron 1 tab 01/19/25 08:00 01/20/25 08:08 Vitamin Tablet PO 1 tab DAILYWM BILLIE Administration Senna 17.2 mg 01/16/25 10:51 Senna 8.6 Mg Tablet PO DAILY PRN DAY 4 WO BM Sodium Chloride 10 ml 01/13/25 14:50 Sodium Chloride Flush 0.9% 10 Ml Syringe IVP PRN PRN NEEDED PER PROVIDER ORDERS Sodium Chloride 10 ml 01/13/25 17:00 01/20/25 08:27 Sodium Chloride Flush 0.9% 10 Ml Syringe IVP Not Given 0100,0900,1700 [facility] Sodium Hypochlorite 200 ml 01/15/25 11:00 01/20/25 08:27 Sodium Hypochlorite 473 Ml Bottle TOP Not Given BID BILLIE Sterile Water 20 ml 01/19/25 12:00 01/20/25 11:51 Water For Injection,Sterile 10 Ml Vial MC 20 ml Q8H BILLIE Administration Thiamine HCl 100 mg 01/19/25 09:00 01/20/25 08:08 Thiamine 100 Mg Tablet PO 100 mg DAILY BILLIE Administration Zinc Oxide 113 gm 01/13/25 17:36 01/13/25 17:52 Cod Liver Oil/Zinc Oxide 113 Gm Tube TOP 1 applic PRN PRN Administration Skin Care Zinc Sulfate 220 mg 01/15/25 09:00 01/20/25 08:08 Zinc Sulfate 220 Mg Capsule PO 01/25/25 08:59 220 mg DAILY BILLIE Administration Objective Vital Signs/Intake & Output Reviewed Vital Signs: Yes Vital Signs: Vital Signs x48h Temp Pulse Resp BP Pulse Ox 01/20/25 08:48 36.7 C 75 18 136/65 H 95 Intake & Output: Intake & Output 01/17/25 01/18/25 01/19/25 01/20/25 23:59 23:59 23:59 23:59 Intake Total 1937 / 1937 2860 / 2860 4045 / 4045 1317 / 1317 Output Total 1505 / 1505 1425 / 1425 2200 / 2200 2400 / 2400 Balance 432 / 432 1435 / 1435 1845 / 1845 -1083 / -1083 Objective General Appearance: positive No acute distress and Alert (Talks little bit today) Eyes Bilateral: positive Normal inspection and Conjunctivae nml ENT: positive ENT inspection nml Neck: positive Nml inspection Respiratory: positive Chest non-tender, No respiratory distress and Breath sounds nml Cardiovascular: positive Regular rate & rhythm Abdomen: positive Non-tender and Other (liquid stool in stoma bag) Back: positive Nml inspection Skin: positive Decubitus (right ischial and sacral decub ulcers) Extremities: positive Non-tender and No pedal edema Neurologic/Psychiatric: positive Other (Answers yes/no questions) Comments/Other: Lab Results 01/20/25 05:47 01/20/25 05:47 Other Labs: Lab Results x24hrs 01/20/25 01/20/25 01/20/25 Range/Units 14:02 11:38 07:36 WBC (4.8-10.8) x10^3/uL RBC (4.70-6.10) 10^6/uL Hgb (14.0-18.0) g/dL Hct (42.0-52.0) % MCV (80.0-94.0) fL MCH (27.0-31.0) pg MCHC (32.0-36.0) g/dL RDW (12.0-15.0) % Plt Count (130-450) 10^3/uL MPV (7.4-11.4) fL Neut # (Auto) (1.5-6.6) 10^3/uL Lymph # (Auto) (1.5-3.5) 10^3/uL Davidson # (Auto) (0.0-1.0) 10^3/uL Eos # (Auto) (0.0-0.7) 10^3/uL Baso # (Auto) (0.0-0.1) 10^3/uL Absolute Nucleated RBC x10^3/uL Nucleated RBC % /100WBC Sodium (135-145) mmol/L Potassium (3.5-4.5) mmol/L Chloride (101-111) mmol/L Carbon Dioxide (21-32) mmol/L Anion Gap (6-13) BUN (6-20) mg/dL Creatinine (0.6-1.3) mg/dL Estimated GFR (MDRD) (>89) Glucose (74-104) mg/dL POC Whole Bld Glucose 111 87 (70-100) mg/dL Calcium (8.5-10.3) mg/dL Last Dose Date 01/20/25 Last Dose Time 0553 Vancomycin Trough 22.7 ug/mL 01/20/25 01/19/25 01/19/25 Range/Units 05:47 21:03 16:39 WBC 12.4 H (4.8-10.8) x10^3/uL RBC 4.03 L (4.70-6.10) 10^6/uL Hgb 10.1 L (14.0-18.0) g/dL Hct 34.3 L (42.0-52.0) % MCV 85.1 (80.0-94.0) fL MCH 25.1 L (27.0-31.0) pg MCHC 29.4 L (32.0-36.0) g/dL RDW 18.6 H (12.0-15.0) % Plt Count 455 H (130-450) 10^3/uL MPV 9.6 (7.4-11.4) fL Neut # (Auto) 5.7 (1.5-6.6) 10^3/uL Lymph # (Auto) 4.2 H (1.5-3.5) 10^3/uL Davidson # (Auto) 0.9 (0.0-1.0) 10^3/uL Eos # (Auto) 1.2 H (0.0-0.7) 10^3/uL Baso # (Auto) 0.1 (0.0-0.1) 10^3/uL Absolute Nucleated RBC 0.02 x10^3/uL Nucleated RBC % 0.2 /100WBC Sodium 139 (135-145) mmol/L Potassium 3.8 (3.5-4.5) mmol/L Chloride 108 (101-111) mmol/L Carbon Dioxide 26 (21-32) mmol/L Anion Gap 5.0 L (6-13) BUN 19 (6-20) mg/dL Creatinine 0.7 (0.6-1.3) mg/dL Estimated GFR (MDRD) 108 (>89) Glucose 87 (74-104) mg/dL POC Whole Bld Glucose 120 99 (70-100) mg/dL Calcium 8.2 L (8.5-10.3) mg/dL Last Dose Date Last Dose Time Vancomycin Trough ug/mL Assessment/Plan Problem List (1) Sepsis: Impression: Markers for sepsis are improving. WBC decreasing from 16 to 13.7. hypotension is resolving. his lactic acidosis improved and normalized shortly after admission. He is still on 2L NC. his O2 sat are in the mid 90's. Will attempt to wean. Blood cultures NGTD 01/15/2025: WBC down to 12.7. Wound cultures with Pseudomonas and group A strep. Urine culture with Proteus. I have changed his antibiotic regimen to cefepime. Will discontinue vancomycin. Continue daily CBC 01/16/2025: Wound care with Dakin's solution started last night. WBC still elevated at 12.6. Continue cefepime, will likely need extended course of Ciprofloxacin at discharge 01/17/2025: WBC has gone up to 15.3, Which is concerning for worsening sepsis. Afebrile, vital signs stable. I escalated his antibiotics to cefepime and Flagyl. I ordered a MRSA swab which came back positive, so I am also adding vancomycin. He has good kidney function, Vanco troughs per pharmacy protocol. Continue to monitor renal function to watch for toxicity. Continue daily CBC to monitor white blood cell count. If his white blood cell count is worse again tomorrow, we will consider repeat CT scan to look for other sources of infection 01/18/2025: WBC has improved to 13.7 today. On further review of prior cultures, it appears that he has grown MRSA in his wounds previously. I believe that the cultures that we collected during this hospitalization just did not pick that up. I will continue his IV cefepime and vancomycin, while monitoring daily BMP to prevent renal toxicity. I added an extra fluid bolus of 1 L and started him on continuous fluids and blood glucose checks as his oral intake has been poor. I gave him a one-time dose of IV thiamine, and he will start vitamin with oral thiamine tomorrow. If his mentation/overall clinical picture does not improve by tomorrow, we will reach out to the family and discuss goals of care 01/19/2025: Concern was raised regarding his wound cultures. It shows Pseudomonas but it did not specifically test for sensitivity to cefepime. I discussed this with the lab, they will send out a confirmation sensitivity which may result by Friday or Friday. Preliminary testing with her equipment shows that this could be a Pseudomonas that is resistant to cephalosporin, so I am escalating him to meropenem. WBC 13.9 today, not significantly increased. Continuing meropenem and vancomycin dosed for renal function to prevent toxicity. Will have goals of care discussion with when she is at bedside as his prognosis is poor as long as he is not eating. ACP discussion in separate note, now pursuing hospice 01/20/2025: Continue discussion with regarding plan of care. The patient is now established with [facility]. Continuing meropenem and vancomycin, as his WBC is improving. The would like to continue medical management while he is still in the hospital but still plans to take him home with hospice tomorrow. He will discharge at 9 AM tomorrow and will meet with hospice at 10 at [facility]. POLST updated, will update CODE STATUS to DNR to reflect this (2) UTI (urinary tract infection): Impression: Urine culture with Proteus. This is susceptible to the Rocephin that he has been on. He was escalated to Meropenem. Today he is day 4 of antibiotics for UTI. (3) Decubitus ulcer of sacral area: Impression: Will need plastic surgery to help with wound healing. His wound has tested positive for strep and Pseudomonas. I have changed his antibiotic to cefepime to cover Pseudomonas. Placement will be difficult because of his high need for wound care. Continue dressing changes with 09/04 Dakin's solution wet-to-dry (4) Protein calorie malnutrition: Impression: 19kg weight loss since Aug 2024. (17%), 4 kg in the last month. This complicates wound healing. nutrition is consulted and are adjusting supplements. Added mirtazapine 15 mg p.o. every afternoon (5) Neuromuscular dysfunction of bladder: Impression: leakage at schaeffer, attempted replacement with larger bore cath and failed. Will continue with present schaeffer. (6) Right leg DVT: Impression: continue eliquis. (7) Morbid obesity due to excess calories: Impression: complicates care. (8) Chronic diastolic (congestive) heart failure: Impression: Last echocardiogram on record is 2016. At that time patient had an ejection fraction of 50 to 55% with severe right ventricular enlargement and mild impairment of his right ventricular systolic function. Continue home dose Lasix (9) Hyperlipemia: Impression: Continue statin. (10) Hypertension: Impression: History of hypertension on Coreg 6.25 mg twice daily. BP 121/64 today. Continue management Qualifiers: Hypertension type: unspecified Qualified Code(s): I10 - Essential (primary) hypertension (11) Pacemaker: Impression: History of pacemaker
--- NOTE | 2025-01-20 18:46 | Discharge Summary ---
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 EMS was called out earlier in the day with a complaint of low O2 sat and then called back for hypotension. He was therefore transferred to our emergency department. He has a past medical history low back problems and has been unable to ambulate for quite some time. He is not paralyzed but he does have a history of spinal surgery. Also has a history of DVT, heart failure with preserved ejection fraction, coronary artery disease, hyperlipidemia, hypertension and pacemaker placement. He is status post creation of diverting colostomy in June 2024 to assist in healing of his sacral wound. In discussion with his at the bedside I find that he has been bedbound since 2022. His spinal cord injury was in 2000. He is being seen by our outpatient wound care providers every Friday. There has been some talk of consultation at either the [facility] or [facility] for plastic surgery but he has not been seen there. His tells me that over the past month she has seen a decline in his overall health. She states that he is less alert and aware. When I questioned her about what gives him valerie in life she says she is really not sure. She says he does get some valerie from the interactions that she has with him. Today in the emergency department his course is significant for an isolated blood pressure of 98/59. He does not have any tachycardia. He has an elevated white blood cell count of 16.0, sodium of 131 with no history of hyponatremia, lactate of 2.6 with an elevated CRP of 16.6 procalcitonin is negative. 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 Nor does the give me any history of debridement of osteomyelitis surgically. The patient has no complaints of pain today. He is not a good historian, very vague in his answers and it takes him some time to even relate to me that he does not have pain. HOSPITAL COURSE Hospital Course: Patient was admitted in the hospital and started on aggressive IV antibiotic therapy and frequent wound care. His urine cultures grew Proteus, and his wound cultures grew highly resistant Pseudomonas as well as beta-hemolytic strep group A. His appetite has remained poor, and he is resistant to any kind of feeding and most oral medications. Goals of care discussion was had with , and it was agreed that at this point he would benefit the most from hospice. Hospice was consulted, and he is being discharged back to [facility] to establish himself with hospice care ALLERGIES Allergies Allergy/AdvReac Type Severity Reaction Status Date / Time No Known Drug Allergies Allergy Verified 01/13/25 09:55 MEDICATIONS Ambulatory Orders Medication Instructions Recorded Confirmed gabapentin 600 mg tablet 600 mg PO TID peripheral 01/14/25 (Neurontin) neuropathy ##30 acetaminophen 500 mg tablet 500 mg PO Q6H PRN pain 11/1601/14/25 atorvastatin 40 mg tablet 40 mg PO .QHS 12/02/1701/14 apixaban 2.5 mg tablet (Eliquis) 5 mg PO BID 09/04/22 01/14/25 ascorbic acid (vitamin C) 500 mg 1,000 mg PO DAILY 01/14/25 capsule calcium 600 mg (as 1 cap PO DAILY 06/21/2412/30 carbonate)-vitamin D3 5 mcg (200 unit) capsule (Calcium 600 + D(3)) furosemide 40 mg tablet 20 mg PO BID 09/17/24 carvedilol 6.25 mg tablet 6.25 mg PO BID 12/16/2412/30 camphor-menthol 0.5 %-0.5 % lotion 1 applic topical Q6 H PRN itching 12/31/24 01/14/25 (Anti-Itch (menthol-camphor)) diphenhydramine HCl 25 mg capsule 25 mg PO Q6H PRN itc angel 12/31/24 01/14/25 (Aler-Cap) polyethylene glycol 3350 17 17 g PO DAILY PRN constipa tion if 12/31/24 01/14/25 gram/dose oral powder (Miralax) no BM times 3 days potassium chloride 20 mEq 20 meq PO DAILY supplement 0 12/31/24 01/14/25 tablet,extended release(part/cryst) sennosides 8.6 mg tablet (Laxative 17.2 mg PO DAILY ND N DAY 4 WO BM 12/31/24 01/14/25 (sennosides)) acetic acid 0.25 % irrigation 1 irrig irrigation QPM 0 01/14/25 01/14/25 solution albuterol sulfate 90 mcg/actuation 1 - 2 puff inhalati on Q4HR PRN 01/14/25 01/14/25 aerosol inhaler (Ventolin HFA) Shortness Of Air/Wheezi ng multivitamin with iron 1 tab PO DAILY 01/14/2512/30 bisacodyl 10 mg rectal suppository 10 mg ND DAILY PRN Constipation #3 01/20/25 (Dulcolax (bisacodyl)) ea lorazepam 0.5 mg tablet (Ativan) 0.5 mg PO Q6H PRN Anx iety #10 tabs 01/20/25 morphine concentrate 100 mg/5 mL 5 mg (0.25 mL) PO Q4H PRN pain or 01/20/25 (20 mg/mL) oral solution breathlessness #30 mL sennosides 8.6 mg tablet (senna) 8.6 mg PO BID PRN Con stipation #10 01/20/25 tabs sodium hypochlorite 0.125 % 200 ml topical BID 30 days #473 mL 01/20/25 solution (Dakin's Solution) PHYSICAL EXAM AT DISCHARGE Vital Signs: Vital Signs x48h Temp Pulse Resp BP Pulse Ox 01/20/25 16:07 36.6 C 79 20 128/61 93 General Appearance: positive No acute distress Eyes Bilateral: positive Normal inspection ENT: positive ENT inspection nml Neck: positive Nml inspection Respiratory: positive Chest non-tender and No respiratory distress Cardiovascular: positive Regular rate & rhythm Peripheral Pulses: positive 2+ Abdomen: positive Non-tender Skin: positive Color nml Extremities: positive Non-tender Neurologic/Psychiatric: positive Other (Answers yes/no questions. Brightens with approach. Withdraws with any pointed questions) LABS 01/20/25 05:47 01/20/25 05:47 FOLLOW UP Follow Up: With hospice. Appointment at 10 AM today TIME SPENT Time Spent in Discharge (Minutes): 42 Discharge Plan Discharge Patient Disposition: 50 Hospice/Home DC/Xfer Condition: Stable Prescriptions: New Dakin's Solution 0.125 % Solution 200 ml topical BID 30 Days Qty: 473 0RF sennosides [senna] 8.6 mg Tablet 8.6 mg PO BID PRN (Reason: Constipation) Qty: 10 0RF Rx Instructions: Take one tablet, by mouth, twice a day as needed for constipation. morphine concentrate 100 mg/5 mL (20 mg/mL) Solution 5 mg PO Q4H PRN (Reason: pain or breathlessness) Qty: 30 0RF Rx Instructions: Take 0.25 ml (equal to 5 mg) by mouth, or under the tongue, every 4 hours as needed for moderate to severe pain. lorazepam [Ativan] 0.5 mg Tablet 0.5 mg PO Q6H PRN (Reason: Anxiety) Qty: 10 0RF Rx Instructions: Take one tablet, by mouth, every 6 hours as needed for anxiety. bisacodyl [Dulcolax (bisacodyl)] 10 mg Suppository 10 mg ND DAILY PRN (Reason: Constipation) Qty: 3 0RF Rx Instructions: Unwrap and insert one suppository rectally daily, as needed for constipation. Continued gabapentin [Neurontin] 600 MG tablet 600 mg PO TID Qty: 30 3RF acetaminophen 500 MG tablet 500 mg PO Q6H MDD NTE 3000mg in 24 hours PRN (Reason: pain) Rx Instructions: NTE 3000MG APAP DAILY atorvastatin 40 MG tablet 40 mg PO .QHS Eliquis 2.5 MG tablet 5 mg PO BID ascorbic acid (vitamin C) 500 mg capsule 1,000 mg PO DAILY calcium carbonate-vitamin D3 [Calcium 600 + D(3)] 600 mg-5 mcg (200 unit) capsule 1 cap PO DAILY furosemide 40 mg tablet 20 mg PO BID Rx Instructions: 1T PO BID HOLD IF SBP < 110 OR HR <60 carvedilol 6.25 mg tablet 6.25 mg PO BID Rx Instructions: must administer with a meal/food HOLD IF SBP <110 OR HR<60 Anti-Itch (menthol-camphor) 0.5-0.5 % lotion 1 applic topical Q6H PRN (Reason: itching) diphenhydramine HCl [Aler-Cap] 25 mg capsule 25 mg PO Q6H PRN (Reason: itching) polyethylene glycol 3350 [Miralax] 17 gram/dose powder 17 g PO DAILY PRN (Reason: constipation if no BM times 3 days) potassium chloride 20 mEq tablet,ER particles/crystals 20 meq PO DAILY sennosides [Laxative (sennosides)] 8.6 mg tablet 17.2 mg PO DAILY PRN (Reason: DAY 4 WO BM) Rx Instructions: 2T PO QPM DAY 4 WO BM acetic acid 0.25 % solution 1 irrig irrigation QPM Rx Instructions: USE 1 APPLICATION VIA IRRIGATION EVERY ROOFING SUBCONTRACTOR FOR WOUND CARE TO COCCYX multivitamin with iron Tablet 1 tab PO DAILY albuterol sulfate [Ventolin HFA] 200 PUFFS/18 GM HFA aerosol inhaler 1 - 2 puff inhalation Q4HR PRN (Reason: Shortness Of Air/Wheezing) Rx Instructions: START DATE PER [facility] 09/21/24 NO LAST ADMIN DATE Activity Restrictions: No Restrictions Diet: Regular Health Concerns: You came into the hospital septic from a UTI and your sacral wounds which have gotten infected. We kept you on high-strength IV antibiotics, and you have only improved some. You stopped eating, and you will not be able to heal if you do not eat. The decision was made to discharge you on hospice given your very poor prognosis and we will do everything we can to keep you comfortable. Please reach out to your hospice team with any concerns Print Language: Kuwaiti Patient Instructions: Hospice Start Stand Alone Forms: PCP List
[2025-01-21 06:00] LABS: BASOPHILS % (AUTO) 0.6 %; EOSINOPHILS % (AUTO) 7.9 %; HCT - HEMATOCRIT 35.3 % (42.0-52.0); HGB - HEMOGLOBIN 10.4 g/dL (14.0-18.0); LYMPHOCYTES % (AUTO) 32.8 %; MEAN CORPUSCULAR HEMOGLOBIN 25.1 pg (27.0-31.0); MEAN CORPUSCULAR HGB CONC 29.5 g/dL (32.0-36.0); MEAN CORPUSCULAR VOLUME 85.3 fL (80.0-94.0); MEAN PLATELET VOLUME 9.2 fL (7.4-11.4); MONOCYTES % (AUTO) 6.9 %; NEUTROPHILS % (AUTO) 50.1 %; PLT - PLATELET COUNT 474 10^3/uL (130-450); RED BLOOD COUNT 4.14 10^6/uL (4.70-6.10); RED CELL DISTRIBUTION WIDTH 18.9 % (12.0-15.0); WHITE BLOOD COUNT 14.4 x10^3/uL (4.8-10.8)
[2025-01-21 06:02] LABS: SLIDE REVIEW? Indicated
[2025-01-21 06:03] LABS: ABNORMAL LYMPHS % (MANUAL) 0 %; BAND NEUTROPHILS % (MANUAL) 0 %
[2025-01-21 06:15] LABS: CALCIUM 8.4 mg/dL (8.5-10.3); CREATININE 0.7 mg/dL (0.6-1.3); POTASSIUM 3.8 mmol/L (3.5-4.5)
[2025-01-21 07:32] LABS: LYMPHOCYTES # (MANUAL) 5.3 10^3/uL (1.5-3.5); LYMPHOCYTES % (MANUAL) 31 %; MONOCYTES # (MANUAL) 0.9 10^3/uL (0.0-1.0); NEUTROPHILS # (MANUAL) 7.2 10^3/uL (1.5-6.6); PLATELET ESTIMATE, MANUAL NORMAL (130-450,000) (NORMAL); PLATELET MORPHOLOGY NORMAL APPEARANCE (NORMAL); RBC MORPHOLOGY (MULTIPLE) NORMAL APPEARANCE (NORMAL); REACTIVE LYMPHS % (MANUAL) 6 %
[2025-01-21 07:33] VITALS: BP 127/70; TEMP 97.3; O2SAT 92
[2025-01-21 07:33] LABS: DIFFERENTIAL COMMENT MANUAL DIFFERENTIAL
== END 2025-01-21 09:30 | disposition hospice, home (50) | DRG 872 ==
LOC: ED 09:38 → MS2 14:21
PROVIDERS: ADMIT Physician Assistant Medical; ATTEND Physician Assistant Medical